=== PATIENT | male | born 1950 | race African-American/Black ===

== ENCOUNTER 2018-12-07 12:34 | Inpatient (IN) | payer MEDICARE, MEDICAID ==
[~2018-12-07] VITALS: Ht 182.9 cm; Wt 63.0 kg
[~2018-12-07 12:34] MED LIST: ARTIFICIAL TEAR15 ML BOTH EYES; ASPIR-LOW81 MG ORAL; ASPIRIN EC81 MG PO; ATORVASTATIN CA20 MG ORAL; CARVEDILOL6.25 MG ORAL; CARVEDILOL6.25 MG PO; Cyproheptadine Hcl ORAL; DILANTIN100 MG ORAL; DILANTIN100 MG PO; HYTRIN1 MG PO; IBUPROFEN600 MG ORAL; ISOSORBIDE MONO30 M1 PO; LIPITOR10 MG ORAL; METFORMIN HCL1000 M1 PO; NORCO 5-325 TA1 EACH ORAL; PHENYTOIN100 MG/4 M ORAL; SPIRONOLACTONE100 MG ORAL; SPIRONOLACTONE25 MG PO; UNOBMED
--- NOTE | 2018-12-07 12:38 | NUR ---
ED Nurse Note: Patient brought in by ambulance from homec/o left toe pain 05/13. patient c/o left foot toes being red and hurting. Alert awake x4 ambulatory with assistance at home, denies any fall/trauma. patient reports he was not able to take his blood pressure medication today
[2018-12-07 12:46] VITALS: BP 157/89
--- NOTE | 2018-12-07 13:45 | Emergency Room Report ---
History of Present Illness General Chief Complaint: Pain Source: Patient Present Illness HPI The patient has a history of peripheral vascular disease. Last month he underwent an arteriogram by vascular surgery. He is on Plavix. He states he has had ongoing severe pain in his left foot. He states the pain is chronic and he can no longer tolerate the symptoms. He denies any new symptoms. He denies recent illness. He denies fever or chills. He has no other complaints. Allergies: Coded Allergies: No Known Allergies (Unverified , 05/07/14) Patient History Past Medical History: see triage record, DM, HTN, seizures Social History: Denies: smoking, alcohol use, drug use Reviewed Nursing Documentation: PMH: Agreed; PSxH: Agreed Nursing Documentation-PMH Hx Cardiac Problems: Yes Hx Hypertension: Yes Hx Diabetes: Yes Hx Cancer: No Hx Gastrointestinal Problems: No Hx Neurological Problems: Yes Hx Transient Ischemic Attacks: No Hx Dementia: No Hx Alzheimer's Disease: No Hx Parkinson's Disease: No Hx Meningitis: No Hx Encephalitis: No Hx Seizures: Yes - 2012 Hx Epilepsy: No Hx Multiple Sclerosis: No Hx Cerebral Palsy: No Hx Amyotrophic Lat Sclerosis: No Hx Guillian-[place] Syndrome: No Hx Paralysis: No Hx Peripheral Neuropathy: No 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 Hx Head Trauma: No Hx Traumatic Brain Injury: No Hx Memory Loss: No Hx Concentration Difficulty: No Hx Speech Problem: No Hx Tremors: No Hx Vertigo: No Hx Dizziness: Yes Hx Syncope: No Hx Headaches: Yes Hx Aphasia: No Hx Dysphasia: No Hx Numbness: No Hx Weakness: Yes - BLE Hx Fatigue: Yes Hx Neurologic Surgery: No Hx Brain Shunt: No Review of Systems All Other Systems: negative except mentioned in HPI Physical Exam Vital Signs Date Time Temp Pulse Resp B/P (MAP) Pulse Ox O2 Delivery O2 Flow Rate FiO2 12/07/18 12:32 97.7 108 16 97 Room Air 12/07/18 12:46 157/89 Sp02 EP Interpretation: reviewed, normal General Appearance: no apparent distress, alert, GCS 15, non-toxic Head: normocephalic, atraumatic Eyes: bilateral eye normal inspection, bilateral eye PERRL ENT: hearing grossly normal, normal pharynx, no angioedema, normal voice Neck: full range of motion, supple/symm/no masses Respiratory: chest non-tender, lungs clear, normal breath sounds, no respiratory distress, no retraction, no accessory muscle use, speaking full sentences Cardiovascular #1: regular rate, rhythm, no edema Cardiovascular #2: 0 dorsalis pedis (L) Gastrointestinal: normal bowel sounds, non tender, soft, non-distended, no guarding, no rebound Rectal: deferred Musculoskeletal: back normal, tender - L. foot cold, skin erythematous, No swelling, 0/4 L. DP pulse. Neurologic: alert, oriented x3, responsive, motor strength/tone normal, sensory intact, speech normal Psychiatric: judgement/insight normal, memory normal, mood/affect normal, no suicidal/homicidal ideation Skin: warm/dry, well hydrated, other - See above in MSK Medical Decision Making Diagnostic Impression: Primary Impression: Arterial occlusion, lower extremity ER Course This patient has complete occlusion of the popliteal artery of the left lower should only. He had been seen in the vascular surgery clinic about 10 days ago and underwent an arteriogram. I'm unsure of the findings on this. Regardless, the patient is found have a complete occlusion of the popliteal artery here in the emergency department. The patient does not a pulse in the foot is cold. I feel that this patient needs further evaluation by vascular surgery. We do not have reliable vascular surgery here at [facility]. Patient is transferred to another hospital for higher level of care. Laboratory Tests Test 12/07/18 14:08 White Blood Count 12.2 K/UL (4.8-10.8) H Red Blood Count 5.18 M/UL (4.70-6.10) Hemoglobin 14.5 G/DL (14.2-18.0) Hematocrit 44.8 % (42.0-52.0) Mean Corpuscular Volume 87 FL (80-99) Mean Corpuscular Hemoglobin 28.1 PG (27.0-31.0) Mean Corpuscular Hemoglobin Concent 32.4 G/DL (32.0-36.0) Red Cell Distribution Width 12.3 % (11.6-14.8) Platelet Count 382 K/UL (150-450) Mean Platelet Volume 5.7 FL (6.5-10.1) L Neutrophils (%) (Auto) 80.8 % (45.0-75.0) H Lymphocytes (%) (Auto) 12.9 % (20.0-45.0) L Monocytes (%) (Auto) 5.6 % (1.0-10.0) Eosinophils (%) (Auto) 0.0 % (0.0-3.0) Basophils (%) (Auto) 0.7 % (0.0-2.0) Sodium Level 135 MMOL/L (136-145) L Potassium Level 4.4 MMOL/L (3.5-5.1) Chloride Level 98 MMOL/L (98-107) Carbon Dioxide Level 28 MMOL/L (21-32) Anion Gap 9 mmol/L (5-15) Blood Urea Nitrogen 17 mg/dL (7-18) Creatinine 0.9 MG/DL (0.55-1.30) Estimate Glomerular Filtration Rate > 60 mL/min (>60) Glucose Level 141 MG/DL (74-106) H Lactic Acid Level 1.20 mmol/L (0.4-2.0) Calcium Level 9.9 MG/DL (8.5-10.1) Total Bilirubin 0.4 MG/DL (0.2-1.0) Aspartate Amino Transferase (AST) 25 U/L (15-37) Alanine Aminotransferase (ALT) 29 U/L (12-78) Alkaline Phosphatase 220 U/L (46-116) H Total Creatine Kinase 179 U/L (26-308) Total Protein 7.8 G/DL (6.4-8.2) Albumin 3.4 G/DL (3.4-5.0) Globulin 4.4 g/dL Albumin/Globulin Ratio 0.8 (1.0-2.7) L Last Vital Signs Date Time Temp Pulse Resp B/P (MAP) Pulse Ox O2 Delivery O2 Flow Rate FiO2 12/07/18 12:46 97.7 109 17 157/89 100 Room Air Disposition: XFER SHT-TRM HOSP Condition: Serious Maura Azar DO December 07, 2018 13:45
--- NOTE | 2018-12-07 14:11 | NUR ---
ED Nurse Note: blood sent to lab
--- NOTE | 2018-12-07 14:12 | NUR ---
ED Nurse Note: ultraound at bedside notified Dr. Azar about the pain
[2018-12-07 14:26] LABS: BASOPHILS % (AUTO) 0.7 % (0.0-2.0); HEMATOCRIT 44.8 % (42.0-52.0); HEMOGLOBIN 14.5 G/DL (14.2-18.0); LYMPHOCYTES % (AUTO) 12.9 % (20.0-45.0); MEAN CORPUSCULAR VOLUME 87 FL (80-99); MONOCYTES % (AUTO) 5.6 % (1.0-10.0); NEUTROPHILS % (AUTO) 80.8 % (45.0-75.0); PLATELET COUNT 382 K/UL (150-450); RED BLOOD COUNT 5.18 M/UL (4.70-6.10); RED CELL DISTRIBUTION WIDTH 12.3 % (11.6-14.8); WHITE BLOOD COUNT 12.2 K/UL (4.8-10.8)
[2018-12-07 14:30] LABS: ANION GAP 9 mmol/L (5-15); BLOOD UREA NITROGEN 17 mg/dL (7-18); CALCIUM 9.9 MG/DL (8.5-10.1); CARBON DIOXIDE 28 MMOL/L (21-32); CHLORIDE 98 MMOL/L (98-107); CREATININE 0.9 MG/DL (0.55-1.30); POTASSIUM 4.4 MMOL/L (3.5-5.1); SODIUM 135 MMOL/L (136-145)
[2018-12-07 14:35] LABS: ALANINE AMINOTRANSFERASE 29 U/L (12-78); ALBUMIN 3.4 G/DL (3.4-5.0); ALBUMIN/GLOBULIN RATIO 0.8 (1.0-2.7); ALKALINE PHOSPHATASE 220 U/L (46-116); ASPARTATE AMINO TRANSFERASE 25 U/L (15-37); BILIRUBIN,TOTAL 0.4 MG/DL (0.2-1.0); CREATINE KINASE 179 U/L (26-308)
[2018-12-07] MEDS ORDERED: Morphine Sulfate 4mg/ml Inj (IV USE ONLY) IVP ONE (14:45)
--- NOTE | 2018-12-07 15:22 | NUR ---
ED Nurse Note: Dr. Azar notified about the result of arterial duplex, left foot cold to touch and no pedal pulse. Dr. Azar is aware.
--- NOTE | 2018-12-07 15:42 | Diagnostic Imaging Report ---
Indication: Reason For Exam: PAIN left leg Technique: Multiplanar smith scale and duplex doppler interrogation of the left lower extremity. Arteries performed in real-time. Comparison: None Findings: The left common femoral artery is demonstrated and appears patent with the triphasic waveform. The profunda femoris artery is also patent. The left superficial femoral artery is identified but occluded. The left popliteal artery is occluded. Portions of the trifurcation vessels namely anterior and posterior tibial arteries appear patent but demonstrate monophasic flow. IMPRESSION: Thrombosis/occlusion of the left mid to distal superficial femoral artery, popliteal artery. Portions of the trifurcation vessels are patent but demonstrate poor flow.
--- NOTE | 2018-12-07 16:09 | NUR ---
ED Nurse Note: called [facility]E and attempted to give report to ANTHONY MON, the nurse is busy at the moment, will callb ack in 15 mintues
[2018-12-07] MEDS ORDERED: Albuterol/Ipratropium 3ml neb HHN PRN (16:15)
[2018-12-07] MEDS ORDERED: Heparin 25,000u/D5W 500ml 500 ML IV SCH (16:15)
[2018-12-07] MEDS ORDERED: Nitroglycerin Subl 0.4mg tab SL PRN (16:15)
[2018-12-07] MEDS ORDERED: Enalaprilat 2.5mg/2ml Inj IV PRN (16:15)
[2018-12-07] MEDS ORDERED: Miralax 17gm pkt ORAL PRN (16:15)
[2018-12-07] MEDS ORDERED: dilTIAZem HCl 25mg/5ml Inj IV PRN (16:15)
[2018-12-07] MEDS ORDERED: Dextrose 50% 25ml Syringe IV PRN (16:15)
--- NOTE | 2018-12-07 16:40 | NUR ---
ED Nurse Note: patient is being transferred by [facility] report and care endorsed to ANTHONY MON.
--- NOTE | 2018-12-07 16:50 | NUR ---
NURSE NOTES: Received report from ELIESER Escobar. Belongings list was checked. Patient a/o x 4. No respiratory distress noted. c/o left foot pain as 8/10 and pain medicine was given at ER. Unit orientation was given. Bed in lowest position, call light within reach. Will continue to monitor.
[2018-12-07] MEDS ORDERED: Enalaprilat 1.25mg/ml Inj IV PRN (17:15)
[2018-12-07] MEDS: NovoLOG Insulin Flexpen SUBQ SCH ×2 (17:51→20:49)
[2018-12-07] MEDS ORDERED: Heparin 25,000u/D5W 500ml (VTE/AF) IV SCH (18:45)
[2018-12-07] MEDS: Morphine Sulfate 2mg/ml Inj(IV/IM USE ONLY) IVP PRN ×2 (18:59→23:13)
--- NOTE | 2018-12-07 19:08 | History & Physical ---
History and Physical History & Physicial Dictated for Int Med-Dr Dahl no. [id number]. Sukumar Rhodes MD December 07, 2018 19:08
--- NOTE | 2018-12-07 19:39 | NUR ---
HAND-OFF: Report given to ELIESER Lin. Patient is stable.
--- NOTE | 2018-12-07 19:45 | NUR ---
NURSE NOTES: Pt lying in bed w/bed in lowest position and call light within reach. Pt A&Ox4, VSS, and in no apparent distress at this time. IV site intact/asymptomatic w/Heparin drip infusing and skin intact. Will continue to monitor.
--- NOTE | 2018-12-07 19:57 | NUR ---
CASE MANAGEMENT: REVIEW 68Y/M BIBA FROM HOME CC: LEFT FOOT PAIN S/P ARTERIOGRAM SI: ARTERIAL OCCLUSION, LOWER EXTREMITY T 97.7 HR 109 RR 17 BP 157/89 SAT 97% ROOM AIR WBC 12.2 NA 135 IS: MORPHINE IV X1 PATIENT IS ADMITTED TO MED/SURG UNIT 12/07/2018 DCP: PATIENT IS FROM HOME
[2018-12-07 20:00] VITALS: BP 142/82
[2018-12-07] MEDS: Carvedilol 6.25mg Tab ORAL SCH (20:48)
[2018-12-07] MEDS ORDERED: Phenytoin 100mg cap ORAL SCH (21:00)
[2018-12-07] MEDS ORDERED: Atorvastatin 20mg tab ORAL SCH (21:00)
[2018-12-08] VITALS: BP 121/89
--- NOTE | 2018-12-08 01:15 | History and Physical Report ---
DATE OF ADMISSION: 12/07/2018 CHIEF COMPLAINT: The patient is a 68-year-old male, who presents with a chief complaint of left foot and left barbosa pain. HISTORY OF PRESENT ILLNESS: The patient has a history of peripheral vascular disease. The patient is status post left femoral popliteal bypass surgery in November of 2018. The patient states that he began to experience extreme pain in the left foot and left barbosa approximately 2 or 3 days ago. The patient presented to [place] emergency room. The patient was admitted for left foot pain to rule out ischemia of the left foot and barbosa. REVIEW OF SYSTEMS: CONSTITUTIONAL: The patient denies weight loss or weight gain. The patient denies fevers or chills. HEENT: The patient denies ear or throat pain. The patient denies headache. CARDIOVASCULAR: The patient denies palpitations or chest pain. CHEST: The patient denies wheeze or shortness of breath. ABDOMEN: The patient denies nausea, vomiting, diarrhea, or constipation. GENITOURINARY: The patient denies dysuria or increased frequency of urination. NEUROMUSCULAR: The patient complains of left leg pain as above. The patient denies generalized weakness. The patient does have a history of seizure disorder. PAST MEDICAL HISTORY: Significant for, 1. Type 2 diabetes. 2. Hypertension. 3. Seizure disorder. 4. Coronary artery disease. PAST SURGICAL HISTORY: Significant for, 1. Left femoral popliteal bypass in November of 2018. 2. Right inguinal hernia repair. CURRENT MEDICATIONS: 1. Aspirin 81 mg one tablet p.o. daily. 2. Atorvastatin 20 mg p.o. at bedtime. 3. Carvedilol 6.25 mg p.o. twice daily. 4. [place] 5/325 mg one tablet p.o. q.6 h. p.r.n. 5. Isosorbide mononitrate 30 mg p.o. daily. 6. Metformin 1000 mg p.o. twice daily. 7. Dilantin 300 mg p.o. at bedtime. 8. Dilantin 200 mg p.o. twice daily. 9. Aldactone 25 mg p.o. daily. 10. Terazosin 1 mg p.o. daily. ALLERGIES: No known drug allergies. SOCIAL HISTORY: The patient lives alone. The patient admits to tobacco use of 1/2 pack per day. The patient denies alcohol use. PHYSICAL EXAMINATION: VITAL SIGNS: Temperature 97.7, respirations 16, pulse 108, and blood pressure 157/89. GENERAL: The patient is a well-developed and well-nourished thin-appearing male, who is in moderate pain. HEENT: Eyes, pupils are equal and responsive to light and accommodation. Extraocular movements are intact. NECK: Supple without lymphadenopathy. CHEST: Lungs are clear to auscultation bilaterally without wheezes or rales. CARDIOVASCULAR: Regular rhythm and rate. S1 and S2 are normal without murmurs, rubs, or gallops. ABDOMEN: Soft, nontender, nondistended. Positive bowel sounds. No evidence of hepatosplenomegaly. Currently, no rebound or guarding noted. EXTREMITIES: Negative for clubbing, cyanosis, or edema. RECTAL/GENITAL: Refused. NEUROLOGIC: Cranial nerves II through XII are grossly intact without focal deficits. Motor strength is 5/5 bilaterally. Deep tendon reflexes are 2+ plantar. LABORATORY STUDIES: An arterial duplex Doppler of the left leg reveals thrombus/occlusion of the left mid to left distal superficial femoral artery and popliteal artery. LABORATORY STUDIES: WBC 12.2, hemoglobin 14.5, hematocrit 44.8, and platelets 382,000. Sodium 135, potassium 4.4, chloride 98, CO2 is 28, BUN 17, creatinine 0.9, and glucose 141. ASSESSMENT: This is a 68-year-old male. 1. Acute thrombus of the left superficial femoral artery. 2. Left foot pain. 3. Diabetes type 2. 4. Hypertension. 5. Seizure disorder. 6. Coronary artery disease. 7. Peripheral vascular disease. TREATMENT: 1. Thrombosis of the left superficial femoral artery. The patient has been started on heparin drip. A Vascular Surgery consultation is pending. We will follow recommendation of Vascular Surgery. 2. Left foot pain. This secondary to ischemia of the left foot. 3. Diabetes type 2. The patient has been placed on NovoLog sliding scale. 4. Hypertension. Continue Coreg as above. 5. Seizure disorder. Continue Dilantin as above. 6. Coronary artery disease. Continue aspirin as above. 7. Peripheral vascular disease. Sukumar Rhodes M.D. DR: TONJA JOB#: [id number] CC:
--- NOTE | 2018-12-08 01:30 | NUR ---
NURSE NOTES: Notified [employer] pharmacist of PTT of 38; pharmacist will input order for bolus and rate increase. Will continue to monitor.
[2018-12-08] MEDS ORDERED: Heparin 5000 units/ml inj IV ONE (01:45)
[2018-12-08] MEDS: Heparin 25,000u/D5W 500ml (VTE/AF) IV SCH ×2 (01:57→14:27)
[2018-12-08] MEDS: Morphine Sulfate 2mg/ml Inj(IV/IM USE ONLY) IVP PRN ×4 (03:20→17:38)
[2018-12-08 04:00] VITALS: BP 147/78
[2018-12-08] MEDS: NovoLOG Insulin Flexpen SUBQ SCH ×3 (06:15→17:34)
--- NOTE | 2018-12-08 07:30 | NUR ---
HAND-OFF: Report given to ELIESER Velez.
--- NOTE | 2018-12-08 07:42 | NUR ---
NURSE NOTES: During shift change patient alert awake with out no distress seating on bed and eating breakfast, on Heparin drip 22u/kg no s/s of bleeding, bed on low position locked, call light with in reach, table with in reach will continue to monitor.
[2018-12-08 08:25] VITALS: BP 146/92
[2018-12-08] MEDS: Carvedilol 6.25mg Tab ORAL SCH (08:41)
[2018-12-08] MEDS ORDERED: Aspirin EC 81mg tab ORAL SCH (09:00)
[2018-12-08] MEDS ORDERED: Aspirin Baby 81mg ORAL SCH (09:00)
[2018-12-08 09:17] LABS: BASOPHILS % (AUTO) 0.5 % (0.0-2.0); EOSINOPHILS % (AUTO) 0.1 % (0.0-3.0); HEMATOCRIT 38.7 % (42.0-52.0); HEMOGLOBIN 12.6 G/DL (14.2-18.0); LYMPHOCYTES % (AUTO) 18.6 % (20.0-45.0); MEAN CORPUSCULAR VOLUME 86 FL (80-99); MONOCYTES % (AUTO) 7.7 % (1.0-10.0); NEUTROPHILS % (AUTO) 73.1 % (45.0-75.0); PLATELET COUNT 370 K/UL (150-450); RED CELL DISTRIBUTION WIDTH 11.7 % (11.6-14.8); WHITE BLOOD COUNT 8.5 K/UL (4.8-10.8)
--- NOTE | 2018-12-08 09:30 | NUR ---
NURSE NOTES: on nursing assessment the right leg with decreased circulation comparing to the left leg and cooler than the left leg as well. noted a puncture site on R. ankle patient stated that is where he has the surgery but he doesn't know what kind of surgery, procedure done as an out patient reported burning pain will continue to monitor.
[2018-12-08 09:38] LABS: CHOLESTEROL 179 MG/DL (< 200); HDL CHOLESTEROL 59 MG/DL (40-60); TRIGLYCERIDES 85 MG/DL (30-150)
[2018-12-08 09:52] LABS: INR 1.1 (0.9-1.1)
--- NOTE | 2018-12-08 09:58 | Cardiology Progress Note ---
Assessment/Plan Assessment/Plan need limb salvage procedure at discretion of vascular possibly urgently will check ekg and echo and a cxr will nto tight control of bop unitl after flow is established [id number] Objective Last 24 Hour Vital Signs Date Time Temp Pulse Resp B/P (MAP) Pulse Ox O2 Delivery O2 Flow Rate FiO2 12/08/18 09:20 97.9 12/08/18 08:41 62 146/92 12/08/18 08:25 97.9 62 20 146/92 (110) 95 12/08/18 04:00 99.0 107 18 147/78 (101) 95 12/08/18 00:00 99.2 105 18 121/89 (100) 98 12/07/18 21:00 Room Air 12/07/18 20:48 103 142/82 12/07/18 20:00 99.4 103 18 142/82 (102) 95 12/07/18 16:55 Room Air 12/07/18 16:39 97.7 72 17 139/72 100 Room Air 12/07/18 15:20 97.7 12/07/18 12:46 97.7 109 17 157/89 100 Room Air 12/07/18 12:32 97.7 108 16 97 Room Air Intake and Output 12/07/18 12/08/18 19:00 07:00 Intake Total 250 ml 274.898 ml Output Total 675 ml Balance 250 ml -400.102 ml Intake Oral 250 ml IV Total 274.898 ml Output Urine Total 675 ml # Voids 1 1 Laboratory Tests Test 12/07/18 14:08 12/07/18 18:20 12/08/18 00:53 12/08/18 08:00 White Blood Count 12.2 K/UL (4.8-10.8) H 8.5 K/UL (4.8-10.8) Red Blood Count 5.18 M/UL (4.70-6.10) 4.50 M/UL (4.70-6.10) L Hemoglobin 14.5 G/DL (14.2-18.0) 12.6 G/DL (14.2-18.0) L Hematocrit 44.8 % (42.0-52.0) 38.7 % (42.0-52.0) L Mean Corpuscular Volume 87 FL (80-99) 86 FL (80-99) Mean Corpuscular Hemoglobin 28.1 PG (27.0-31.0) 28.1 PG (27.0-31.0) Mean Corpuscular Hemoglobin Concent 32.4 G/DL (32.0-36.0) 32.7 G/DL (32.0-36.0) Red Cell Distribution Width 12.3 % (11.6-14.8) 11.7 % (11.6-14.8) Platelet Count 382 K/UL (150-450) 370 K/UL (150-450) Mean Platelet Volume 5.7 FL (6.5-10.1) L 5.8 FL (6.5-10.1) L Neutrophils (%) (Auto) 80.8 % (45.0-75.0) H 73.1 % (45.0-75.0) Lymphocytes (%) (Auto) 12.9 % (20.0-45.0) L 18.6 % (20.0-45.0) L Monocytes (%) (Auto) 5.6 % (1.0-10.0) 7.7 % (1.0-10.0) Eosinophils (%) (Auto) 0.0 % (0.0-3.0) 0.1 % (0.0-3.0) Basophils (%) (Auto) 0.7 % (0.0-2.0) 0.5 % (0.0-2.0) Sodium Level 135 MMOL/L (136-145) L Potassium Level 4.4 MMOL/L (3.5-5.1) Chloride Level 98 MMOL/L (98-107) Carbon Dioxide Level 28 MMOL/L (21-32) Anion Gap 9 mmol/L (5-15) Blood Urea Nitrogen 17 mg/dL (7-18) Creatinine 0.9 MG/DL (0.55-1.30) Estimat Glomerular Filtration Rate > 60 mL/min (>60) Glucose Level 141 MG/DL (74-106) H Lactic Acid Level 1.20 mmol/L (0.4-2.0) Calcium Level 9.9 MG/DL (8.5-10.1) Total Bilirubin 0.4 MG/DL (0.2-1.0) Aspartate Amino Transf (AST/SGOT) 25 U/L (15-37) Alanine Aminotransferase (ALT/SGPT) 29 U/L (12-78) Alkaline Phosphatase 220 U/L (46-116) H Total Creatine Kinase 179 U/L (26-308) Troponin I 0.000 ng/mL (0.000-0.056) Total Protein 7.8 G/DL (6.4-8.2) Albumin 3.4 G/DL (3.4-5.0) Globulin 4.4 g/dL Albumin/Globulin Ratio 0.8 (1.0-2.7) L Activated Partial Thromboplast Time 28 SEC (23-33) 38 SEC (23-33) H 81 SEC (23-33) H Prothrombin Time 11.1 SEC (9.30-11.50) Prothromb Time International Ratio 1.1 (0.9-1.1) C-Reactive Protein, Quantitative 7.7 mg/dL (0.00-0.90) H Triglycerides Level 85 MG/DL (30-150) Cholesterol Level 179 MG/DL (< 200) LDL Cholesterol 106 mg/dL (<100) H HDL Cholesterol 59 MG/DL (40-60) Cholesterol/HDL Ratio 3.0 (3.3-4.4) L Thyroid Stimulating Hormone (TSH) 2.824 uiU/mL (0.358-3.740) Jesus Wynn MD December 08, 2018 09:58
--- NOTE | 2018-12-08 10:55 | Cardiology Report ---
APPROVED REPORT EXAM: Two-dimensional and M-mode echocardiogram with Doppler and color Doppler. INDICATION LV FUNCTION M-Mode DIMENSIONS IVSd0.7 (0.7-1.1cm)Left Atrium (MM)2.1 (1.6-4.0cm) LVDd3.8 (3.5-5.6cm)Aortic Root3.7 (2.0-3.7cm) PWd0.7 (0.7-1.1cm)Aortic Cusp Exc.1.8 (1.5-2.0cm) IVSs1.0 cm LVDs2.3 (2.5-4.0cm) PWs1.3 cm Normal left ventricular chamber size, systolic function and wall motion. Left ventricular ejection fraction estimated to be 55-60%. Mild left ventricular hypertrophy by 2-D. False tendon in distal LV No evidence of pericardial effusion. All other cardiac chamber sizes are within normal limits. Aortic valve calcification with normal cusp excursion . Mildly thickened mitral valve leaflets with normal excursion. Mild mitral annulus and aortic root calcification. Pulmonic valve not well visualized. IVC at normal size with physiologic collapse . A color flow and spectral Doppler study was performed and revealed: No aortic insufficiency . Mitral diastolic velocities suggest reduced left ventricular relaxation c/w mild LV diastolic dysfunction (Grade I ) Trace tricuspid regurgitation. Trace tricuspid regurgitation. Tricuspid systolic velocities suggests peak right ventricular systolic pressure of 12 mmHg. Trace pulmonic regurgitation.
[2018-12-08 12:00] VITALS: BP 138/78
--- NOTE | 2018-12-08 12:31 | Consultation ---
History of Present Illness General Date patient seen: December 08, 2018 Chief Complaint: Pain Present Illness HPI 68 year old male with history of peripheral vascular disease on Plavix, DM, HTN, seizures presented to ER with CC of ongoing severe pain in his left foot. He states the pain is chronic and he can no longer tolerate the symptoms. He denies any new symptoms. He denies recent illness. He denies fever or chills. He has no other complaints. the US of left femoral artery showed thrombosis/ occlusion of the left mid to distal superficial femoral artery. The vascular surgeon was informed by ER physician and pt was admitted to med/surg floor. Allergies: Coded Allergies: No Known Allergies (Unverified , 05/07/14) Medication History Scheduled Aspirin Ec* (Aspirin Ec*), 81 MG PO DAILY, (Reported) Aspirin* (Aspir-Low*), 81 MG ORAL BEDTIME, (Reported) Atorvastatin Calcium* (Lipitor*), 20 MG ORAL BEDTIME Carvedilol* (Carvedilol*), 6.25 MG PO BID, (Reported) Carvedilol* (Carvedilol*), 6.25 MG ORAL BID, (Reported) Dextran 70/Hypromellose (Artificial Tears Eye Drops*), 1 DROP BOTH EYES QID Isosorbide Mononitrate (Isosorbide Mononitrate Er), 30 MG PO DAILY, (Reported) Metformin Hcl* (Metformin Hcl*), 1,000 MG PO BID, (Reported) Phenytoin Sodium Extended* (Dilantin*), 300 MG PO HS, (Reported) Phenytoin Sodium Extended* (Dilantin*), 200 MG ORAL TWICE A DAY Spironolactone* (Aldactone*), 25 MG PO DAILY, (Reported) Spironolactone* (Spironolactone*), 25 MG ORAL DAILY, (Reported) Terazosin HCl (Terazosin HCl), 5 MG PO BEDTIME, (Reported) [Cyproheptadine Hcl], 4 MG ORAL THREE TIMES A DAY Scheduled PRN Hydrocodone Bit/Acetaminophen 5-325* (Mclean 5-325*), 1 TAB ORAL Q6H PRN for For Pain Ibuprofen* (Motrin*), 600 MG ORAL Q8H PRN for For Pain Patient History Healthcare decision maker Resuscitation status Full Code Advanced Directive on File Past Medical/Surgical History Past Medical/Surgical History: (1) History of CVA (cerebrovascular accident) (2) PVD (peripheral vascular disease) (3) Cardiomyopathy (4) CAD (coronary artery disease) (5) Diabetes mellitus (6) Epileptic seizure, generalized Review of Systems All Other Systems: negative except mentioned in HPI Physical Exam General Appearance: WD/WN, no apparent distress Lines, tubes and drains: peripheral HEENT: normocephalic, atraumatic Neck: non-tender, normal alignment Respiratory/Chest: chest wall non-tender, lungs clear Breasts: no masses Cardiovascular/Chest: normal peripheral pulses, normal rate Abdomen: normal bowel sounds, non tender Genitourinary/Rectal: normal genital exam Extremities: normal range of motion, non-tender, other - very tender on touch left foot. cynosis of Skin Exam: normal pigmentation, other - cyanosis of the top of left big toe Neurologic: director biostatistics II-XII grossly normal Last 24 Hour Vital Signs Date Time Temp Pulse Resp B/P (MAP) Pulse Ox O2 Delivery O2 Flow Rate FiO2 12/08/18 10:24 Room Air 12/08/18 09:20 97.9 12/08/18 08:41 62 146/92 12/08/18 08:25 97.9 62 20 146/92 (110) 95 12/08/18 04:00 99.0 107 18 147/78 (101) 95 12/08/18 00:00 99.2 105 18 121/89 (100) 98 12/07/18 21:00 Room Air 12/07/18 20:48 103 142/82 12/07/18 20:00 99.4 103 18 142/82 (102) 95 12/07/18 16:55 Room Air 12/07/18 16:39 97.7 72 17 139/72 100 Room Air 12/07/18 15:20 97.7 12/07/18 12:46 97.7 109 17 157/89 100 Room Air 12/07/18 12:32 97.7 108 16 97 Room Air Intake and Output 12/07/18 12/08/18 19:00 07:00 Intake Total 250 ml 274.898 ml Output Total 675 ml Balance 250 ml -400.102 ml Intake Oral 250 ml IV Total 274.898 ml Output Urine Total 675 ml # Voids 1 1 Laboratory Tests Test 12/07/18 14:08 12/07/18 18:20 12/08/18 00:53 12/08/18 08:00 White Blood Count 12.2 K/UL (4.8-10.8) H 8.5 K/UL (4.8-10.8) Red Blood Count 5.18 M/UL (4.70-6.10) 4.50 M/UL (4.70-6.10) L Hemoglobin 14.5 G/DL (14.2-18.0) 12.6 G/DL (14.2-18.0) L Hematocrit 44.8 % (42.0-52.0) 38.7 % (42.0-52.0) L Mean Corpuscular Volume 87 FL (80-99) 86 FL (80-99) Mean Corpuscular Hemoglobin 28.1 PG (27.0-31.0) 28.1 PG (27.0-31.0) Mean Corpuscular Hemoglobin Concent 32.4 G/DL (32.0-36.0) 32.7 G/DL (32.0-36.0) Red Cell Distribution Width 12.3 % (11.6-14.8) 11.7 % (11.6-14.8) Platelet Count 382 K/UL (150-450) 370 K/UL (150-450) Mean Platelet Volume 5.7 FL (6.5-10.1) L 5.8 FL (6.5-10.1) L Neutrophils (%) (Auto) 80.8 % (45.0-75.0) H 73.1 % (45.0-75.0) Lymphocytes (%) (Auto) 12.9 % (20.0-45.0) L 18.6 % (20.0-45.0) L Monocytes (%) (Auto) 5.6 % (1.0-10.0) 7.7 % (1.0-10.0) Eosinophils (%) (Auto) 0.0 % (0.0-3.0) 0.1 % (0.0-3.0) Basophils (%) (Auto) 0.7 % (0.0-2.0) 0.5 % (0.0-2.0) Sodium Level 135 MMOL/L (136-145) L Potassium Level 4.4 MMOL/L (3.5-5.1) Chloride Level 98 MMOL/L (98-107) Carbon Dioxide Level 28 MMOL/L (21-32) Anion Gap 9 mmol/L (5-15) Blood Urea Nitrogen 17 mg/dL (7-18) Creatinine 0.9 MG/DL (0.55-1.30) Estimat Glomerular Filtration Rate > 60 mL/min (>60) Glucose Level 141 MG/DL (74-106) H Lactic Acid Level 1.20 mmol/L (0.4-2.0) Calcium Level 9.9 MG/DL (8.5-10.1) Total Bilirubin 0.4 MG/DL (0.2-1.0) Aspartate Amino Transf (AST/SGOT) 25 U/L (15-37) Alanine Aminotransferase (ALT/SGPT) 29 U/L (12-78) Alkaline Phosphatase 220 U/L (46-116) H Total Creatine Kinase 179 U/L (26-308) Troponin I 0.000 ng/mL (0.000-0.056) Total Protein 7.8 G/DL (6.4-8.2) Albumin 3.4 G/DL (3.4-5.0) Globulin 4.4 g/dL Albumin/Globulin Ratio 0.8 (1.0-2.7) L Activated Partial Thromboplast Time 28 SEC (23-33) 38 SEC (23-33) H 81 SEC (23-33) H Prothrombin Time 11.1 SEC (9.30-11.50) Prothromb Time International Ratio 1.1 (0.9-1.1) C-Reactive Protein, Quantitative 7.7 mg/dL (0.00-0.90) H Triglycerides Level 85 MG/DL (30-150) Cholesterol Level 179 MG/DL (< 200) LDL Cholesterol 106 mg/dL (<100) H HDL Cholesterol 59 MG/DL (40-60) Cholesterol/HDL Ratio 3.0 (3.3-4.4) L Thyroid Stimulating Hormone (TSH) 2.824 uiU/mL (0.358-3.740) Height (Feet): 6 Height (Inches): 1.00 Weight (Pounds): 139 Medications Current Medications Medications (Trade) Dose Ordered Sig/Mell Route PRN Reason Start Time Stop Time Status Last Admin Dose Admin Acetaminophen (Tylenol) 650 mg Q4H PRN ORAL FEVER 12/07/18 16:15 01/06/19 16:14 Albuterol/ Ipratropium (Albuterol/ Ipratropium) 3 ml Q4H PRN HHN Shortness of Breath 12/07/18 16:15 12/12/18 16:14 Aspirin (ASA) 162 mg DAILY ORAL 12/08/18 09:00 01/07/19 08:59 12/08/18 08:40 Atorvastatin Calcium (Lipitor) 20 mg BEDTIME ORAL 12/07/18 21:00 01/06/19 20:59 12/07/18 20:46 Carvedilol (Coreg) 6.25 mg Q12HR ORAL 12/07/18 21:00 01/06/19 20:59 12/08/18 08:41 Dextrose (Dextrose 50%) 25 ml Q30M PRN IV Hypoglycemia 12/07/18 16:15 01/06/19 16:09 Dextrose (Dextrose 50%) 50 ml Q30M PRN IV hypoglycemia 12/07/18 16:15 01/06/19 16:14 Enalaprilat (Vasotec) 2.5 mg Q6H PRN IV sbp more than 160 12/07/18 17:15 01/06/19 16:14 Heparin Sodium/ Dextrose 500 ml @ 27.742 mls/ hr ADJUST PER PROTOCOL IV 12/08/18 01:45 01/06/19 18:44 12/08/18 01:57 Insulin Aspart (NovoLOG) BEFORE MEALS AND HS SUBQ 12/07/18 16:30 01/06/19 16:29 12/08/18 11:49 Morphine Sulfate (Morphine Sulfate) 2 mg Q4H PRN IVP severe Pain (Pain Scale 7-10) 12/07/18 16:15 12/14/18 16:14 12/08/18 08:43 Nitroglycerin (Ntg) 0.4 mg Q5M PRN SL Prn Chest Pain 12/07/18 16:15 01/06/19 16:14 Ondansetron HCl (Zofran) 4 mg Q6H PRN IVP Nausea & Vomiting 12/07/18 16:15 01/06/19 16:14 Pantoprazole (Protonix) 40 mg DAILY ORAL 12/08/18 09:00 01/07/19 08:59 12/08/18 08:41 Phenytoin (Dilantin) 300 mg BEDTIME ORAL 12/07/18 21:00 01/06/19 20:59 12/07/18 20:45 Polyethylene Glycol (Miralax) 17 gm DAILYPRN PRN ORAL Constipation 12/07/18 16:15 01/06/19 16:14 Temazepam (Restoril) 15 mg HSPRN PRN ORAL Insomnia 12/07/18 16:15 12/14/18 16:14 12/08/18 02:03 Terazosin HCl (Hytrin) 5 mg BEDTIME ORAL 12/07/18 21:00 01/06/19 20:59 12/07/18 20:46 Assessment/Plan Problem List: (1) Arterial occlusion, lower extremity ICD Codes: I70.209 - Unspecified atherosclerosis of [place] arteries of extremities, unspecified extremity SNOMED: 424505051 (2) CAD (coronary artery disease) ICD Codes: I25.10 - Atherosclerotic heart disease of [place] coronary artery without angina pectoris SNOMED: 79218066 (3) Diabetes mellitus ICD Codes: E11.9 - Type 2 diabetes mellitus without complications SNOMED: 75093540 (4) Left foot pain ICD Codes: M79.672 - Pain in left foot SNOMED: 81522914 (5) Epileptic seizure, generalized ICD Codes: G40.909 - Epilepsy, unspecified, not intractable, without status epilepticus SNOMED: 26717995 (6) History of CVA (cerebrovascular accident) ICD Codes: Z86.73 - Personal history of transient ischemic attack (TIA), and cerebral infarction without residual deficits SNOMED: 653037400 (7) PVD (peripheral vascular disease) ICD Codes: I73.9 - Peripheral vascular disease, unspecified SNOMED: 803064958 Assessment/Plan: vascular surgery continue heparin drip sliding scale increase pain meds until pt is comfortable monitor bp cardiac clearance for potential surgery Herson Lindsay MD December 08, 2018 12:31
--- NOTE | 2018-12-08 12:55 | NUR ---
CASE MANAGEMENT:REVIEW 12/08/18 SI: SEVERE LT FOOT PAIN ARTERIAL OCCLUSION. PVD 97.9 62 20 146/92 95% ON RA CRP+7.7 IS: HEPARIN GTT ASA PO QD COREG PO Q12 IV MORPHINE Q4HRS PRN : MED/SURG STATUS 3 [facility]
--- NOTE | 2018-12-08 13:24 | NUR ---
NURSE NOTES: Patient reassessed and RN noted discoloration on the foot, prominently noted on the thumb. patient holding leg up RN educated patient holding leg up is occluding the circulation more, pain medication given to alleviate the pain and to help patient rest the leg on bed. noted decreased circulation and cool to touch than the morning. AM assessment patient leg was covered now no cover leg was held up unknown time patient stated he has it up for a while. will continue to monitor. Addendum: 12/08/18 at 1757 by DOREEN HEAD RN NURSE NOTES: Patient reassessed and RN noted discoloration on the foot, prominently noted on the great toe. patient holding leg up RN educated patient holding leg up is occluding the circulation more, pain medication given to alleviate the pain and to help patient rest the leg on bed. noted decreased circulation and cool to touch than the morning. AM assessment patient leg was covered now no cover leg was held up unknown time patient stated he has it up for a while. will continue to monitor.
--- NOTE | 2018-12-08 13:42 | NUR ---
*-* INSURANCE *-* CLINICALS AND REVIEWS HAVE BEEN FAXED TO: RUBÉN ESTEVES [phone] AUTH# [id number] FAX CLINICALS TO [phone]
--- NOTE | 2018-12-08 14:03 | NUR ---
NURSE NOTES: MD notified of condition change will follow up for new order, currently patient asleep will reassess.
--- NOTE | 2018-12-08 14:30 | NUR ---
TRANSFER UPDATE CALLED [facility] AND SPOKE WITH MARISOL IN "ONE CALL" T;[phone] F: [phone] PER MARISOL SHE WILL CHECK INSURANCE AND CONTACT DR VILA REGARDING ACCEPTANCE ONCE PATIENT HAS BEEN ACCEPTED AND THEY HAVE A BED THEY WILL CALL BACK REGARDING TRANSFER
--- NOTE | 2018-12-08 15:38 | NUR ---
REF# [id number]
[2018-12-08 15:52] VITALS: BP 137/84
--- NOTE | 2018-12-08 16:32 | NUR ---
TRANSFER UPDATE PATIENT HAS BEEN REFERRED TO [facility] FOR ANGIOGRAPHY [facility] IS REQUESTING THE NAME OF THE ACCEPTING PHYSICIAN SINCE DR VILA WILL NOT ACCEPT, HE IS ONLY THE CONSULTATNT PER DR KIM, DR BUTLER WILL BE THE ACCEPTING PHYSICIAN PROVIDED [facility] [employer] MARKETING COORDINATOR, FRITZ WITH ACCEPTING PHYSICIANS NAME SO SHE CAN CREATE A CASE AND GIVE AUTHORIZATION FOR TRANSFER ~ WAITING FOR AUTHORIZATION NUMBER FOR TRANSFER AND AMBULANCE SPOKE WITH MARISOL AT [facility] WHO IS WAITING FOR DR ARROYO TO CALL AND ACCEPT PATIENT [facility] ONE CALL MARISOL T: [phone] F: [phone] [facility] [employer] COORDINATOR FRITZ T: [phone] REF # [id number] Addendum: 12/08/18 at 1652 by KIMBERLEY WRIGHT LVN LVN RECEIVED CALL FROM GUERDA AT " ONE CALL" PATIENT HAS BEEN ACCEPTED [facility] ROOM 902A T: [phone] FOR NURSE TO NURSE REPORT BEDSIDE RN TO CONTACT DR KIM FOR TRANSFER ORDERS AND ARRANGE AMBULANCE TRANSFER
[2018-12-08] MEDS ORDERED: HEPARIN-D525000 UNI1 IV (17:29)
--- NOTE | 2018-12-08 17:39 | NUR ---
BS reading 445 Dr. romano notified 12unit insulin given pt. Asymptomatic.
--- NOTE | 2018-12-08 17:39 | Internal Med Progress Note ---
Subjective Date of Service: December 08, 2018 Physician Name Sukumar Rhodes Attending Physician Luis Dahl MD Current Medications Medications (Trade) Dose Ordered Sig/Mell Route PRN Reason Start Time Stop Time Status Last Admin Dose Admin Acetaminophen (Tylenol) 650 mg Q4H PRN ORAL FEVER 12/07/18 16:15 01/06/19 16:14 Albuterol/ Ipratropium (Albuterol/ Ipratropium) 3 ml Q4H PRN HHN Shortness of Breath 12/07/18 16:15 12/12/18 16:14 Aspirin (ASA) 162 mg DAILY ORAL 12/08/18 09:00 01/07/19 08:59 12/08/18 08:40 Atorvastatin Calcium (Lipitor) 20 mg BEDTIME ORAL 12/07/18 21:00 01/06/19 20:59 12/07/18 20:46 Carvedilol (Coreg) 6.25 mg Q12HR ORAL 12/07/18 21:00 01/06/19 20:59 12/08/18 08:41 Dextrose (Dextrose 50%) 25 ml Q30M PRN IV Hypoglycemia 12/07/18 16:15 01/06/19 16:09 Dextrose (Dextrose 50%) 50 ml Q30M PRN IV hypoglycemia 12/07/18 16:15 01/06/19 16:14 Enalaprilat (Vasotec) 2.5 mg Q6H PRN IV sbp more than 160 12/07/18 17:15 01/06/19 16:14 Heparin Sodium/ Dextrose 500 ml @ 27.742 mls/ hr ADJUST PER PROTOCOL IV 12/08/18 01:45 01/06/19 18:44 12/08/18 14:27 Insulin Aspart (NovoLOG) BEFORE MEALS AND HS SUBQ 12/07/18 16:30 01/06/19 16:29 12/08/18 17:34 Morphine Sulfate (Morphine Sulfate) 2 mg Q4H PRN IVP severe Pain (Pain Scale 7-10) 12/07/18 16:15 12/14/18 16:14 12/08/18 13:16 Nitroglycerin (Ntg) 0.4 mg Q5M PRN SL Prn Chest Pain 12/07/18 16:15 01/06/19 16:14 Ondansetron HCl (Zofran) 4 mg Q6H PRN IVP Nausea & Vomiting 12/07/18 16:15 01/06/19 16:14 Pantoprazole (Protonix) 40 mg DAILY ORAL 12/08/18 09:00 01/07/19 08:59 12/08/18 08:41 Phenytoin (Dilantin) 300 mg BEDTIME ORAL 12/07/18 21:00 01/06/19 20:59 12/07/18 20:45 Polyethylene Glycol (Miralax) 17 gm DAILYPRN PRN ORAL Constipation 12/07/18 16:15 01/06/19 16:14 Temazepam (Restoril) 15 mg HSPRN PRN ORAL Insomnia 12/07/18 16:15 12/14/18 16:14 12/08/18 02:03 Terazosin HCl (Hytrin) 5 mg BEDTIME ORAL 12/07/18 21:00 01/06/19 20:59 12/07/18 20:46 Allergies: Coded Allergies: No Known Allergies (Unverified , 05/07/14) ROS Limited/Unobtainable: No Constitutional: Reports: no symptoms HEENT: Reports: no symptoms Cardiovascular: Reports: no symptoms Respiratory: Reports: no symptoms Gastrointestinal/Abdominal: Reports: no symptoms Genitourinary: Reports: no symptoms Neurologic/Psychiatric: Reports: no symptoms Subjective 68 YO M admitted with left foot pain. Now acute thrombosis left superior femoral artery. Cover for Int Ney dahl Objective Last Vital Signs Date Time Temp Pulse Resp B/P (MAP) Pulse Ox O2 Delivery O2 Flow Rate FiO2 12/08/18 15:52 98.1 64 18 137/84 (101) 100 12/08/18 10:24 Room Air Laboratory Tests Test 12/07/18 18:20 12/08/18 00:53 12/08/18 08:00 12/08/18 16:03 Activated Partial Thromboplast Time 28 SEC (23-33) 38 SEC (23-33) H 81 SEC (23-33) H White Blood Count 8.5 K/UL (4.8-10.8) Red Blood Count 4.50 M/UL (4.70-6.10) L Hemoglobin 12.6 G/DL (14.2-18.0) L Hematocrit 38.7 % (42.0-52.0) L Mean Corpuscular Volume 86 FL (80-99) Mean Corpuscular Hemoglobin 28.1 PG (27.0-31.0) Mean Corpuscular Hemoglobin Concent 32.7 G/DL (32.0-36.0) Red Cell Distribution Width 11.7 % (11.6-14.8) Platelet Count 370 K/UL (150-450) Mean Platelet Volume 5.8 FL (6.5-10.1) L Neutrophils (%) (Auto) 73.1 % (45.0-75.0) Lymphocytes (%) (Auto) 18.6 % (20.0-45.0) L Monocytes (%) (Auto) 7.7 % (1.0-10.0) Eosinophils (%) (Auto) 0.1 % (0.0-3.0) Basophils (%) (Auto) 0.5 % (0.0-2.0) Prothrombin Time 11.1 SEC (9.30-11.50) Prothromb Time International Ratio 1.1 (0.9-1.1) C-Reactive Protein, Quantitative 7.7 mg/dL (0.00-0.90) H Triglycerides Level 85 MG/DL (30-150) Cholesterol Level 179 MG/DL (< 200) LDL Cholesterol 106 mg/dL (<100) H HDL Cholesterol 59 MG/DL (40-60) Cholesterol/HDL Ratio 3.0 (3.3-4.4) L Thyroid Stimulating Hormone (TSH) 2.824 uiU/mL (0.358-3.740) Troponin I 0.000 ng/mL (0.000-0.056) Intake and Output 12/07/18 12/08/18 19:00 07:00 Intake Total 250 ml 274.898 ml Output Total 675 ml Balance 250 ml -400.102 ml Intake Oral 250 ml IV Total 274.898 ml Output Urine Total 675 ml # Voids 1 1 Objective PHYSICAL EXAMINATION: GENERAL: The patient is a well-developed and well-nourished thin-appearing male, who is in moderate pain. HEENT: Eyes, pupils are equal and responsive to light and accommodation. Extraocular movements are intact. NECK: Supple without lymphadenopathy. CHEST: Lungs are clear to auscultation bilaterally without wheezes or rales. CARDIOVASCULAR: Regular rhythm and rate. S1 and S2 are normal without murmurs, rubs, or gallops. ABDOMEN: Soft, nontender, nondistended. Positive bowel sounds. No evidence of hepatosplenomegaly. Currently, no rebound or guarding noted. EXTREMITIES: Negative for clubbing, cyanosis, or edema. RECTAL/GENITAL: Refused. NEUROLOGIC: Cranial nerves II through XII are grossly intact without focal deficits. Motor strength is 5/5 bilaterally. Deep tendon reflexes are 2+ plantar. Assessment/Plan Assessment/Plan ASSESSMENT: This is a 68-year-old male. 1. Acute thrombus of the left superficial femoral artery. 2. Left foot pain. 3. Diabetes type 2. 4. Hypertension. 5. Seizure disorder. 6. Coronary artery disease. 7. Peripheral vascular disease. TREATMENT: 1. Thrombosis of the left superficial femoral artery. The patient has been started on heparin drip. A Vascular Surgery consultation is pending. We will follow recommendation of Vascular Surgery. 2. Left foot pain. This secondary to ischemia of the left foot. 3. Diabetes type 2. The patient has been placed on NovoLog sliding scale. 4. Hypertension. Continue Coreg as above. 5. Seizure disorder. Continue Dilantin as above. 6. Coronary artery disease. Continue aspirin as above. 7. Peripheral vascular disease. 8. Transfer to [facility] for thrombectomy by Sukumar Moon MD December 08, 2018 17:39
--- NOTE | 2018-12-08 18:09 | NUR ---
NURSE NOTES: Patient transported to [facility] by ambulance report given to ELIESER Lopez informed patient discharge with Heparin drip the detail information given verbally and the discharge pocket sent with patient. Patient daughter notified of discharge, Unable to resume Heparin drip on the ambulance Dr. Rhodes aware ok to transport patient with out drip during route. Brandt aware to continue the therapy ASP after receiving the patient. Dr. Chávez notified of the situation as well.
--- NOTE | 2018-12-08 20:15 | Consultation ---
DATE OF CONSULTATION: 12/08/2018 CARDIOLOGY CONSULTATION CONSULTING PHYSICIAN: Jesus Wynn M.D. REFERRING PHYSICIAN: Luis Dahl M.D. REASON FOR REFERRAL: Cardiac evaluations, peripheral vascular disease, and vascular occlusion. HISTORY OF PRESENT ILLNESS: This is a middle-aged gentleman actually, 68-year-old, who has recently undergone a vascular procedure in the outside facility in the [place]. The patient called the paramedics today complaining of left foot pain, 10/10, redness and swelling with burning sensation and was ambulatory with assistance. He was transferred to the emergency room at [facility]. He was evaluated and was found to have vascular occlusion, and he is being evaluated by vascular surgery now. The patient denies any chest pain. No shortness of breath. No PND. No orthopnea. He uses two pillows for comfort. There is no lightheadedness, dizziness, or palpitations. PAST MEDICAL HISTORY: Positive for diabetes, high blood pressure, and high cholesterol. No prior history of heart attack. No cancer. No stroke. No hepatitis or tuberculosis. No asthma. No emphysema. No ulcers. No kidney problems, liver problems, thyroid problems, anemia, arthritis, or HIV. He does indicate that he had a blood clot somewhere in his legs and he had a vascular procedure performed and was told that this one is second time for the clot to resolve. This is according to the patient himself. He is not allergic to any medications. SOCIAL HISTORY: He smokes somewhere between 1 to 2-1/2 packs per day. No alcoholic beverages. Denies any drug use. ALLERGIES: He has no known drug allergies. REVIEW OF SYSTEMS: GASTROINTESTINAL: Negative. GENITOURINARY: Negative. PULMONARY: Negative. CONSTITUTIONAL: Negative. NEUROLOGICAL: He has numbness and tingling sensation to both his feet. MUSCULOSKELETAL: He has significant amount of pain in the left leg, cannot stand on that. PHYSICAL EXAMINATION: GENERAL: Shows to be elderly middle-aged gentleman, in no respiratory distress. NECK: Supple. No jugular venous distention. LUNGS: Appear to be clear to auscultation and percussion. CARDIAC: S1 is normal. S2 is normal. Regular rate and rhythm. No heaves, thrills, or gallops noted. ABDOMEN: Soft, nontender. Positive bowel sounds. EXTREMITIES: There is no edema. The left foot feels cool to touch, the right appears to be warm to touch. Pulses are decreased in both, but I am not going to palpated on the left foot. LABORATORY AND DIAGNOSTIC DATA: White count of 8.5 down from 12.2, hemoglobin 12.6, and platelet count of 370,000. Sodium is 135, potassium 4.4, chloride 98, bicarbonate 28, BUN is 17, creatinine is 0.9, and glucose of 141. Lactic acid of 1.2. Alkaline phosphatase of 220 and CK of 179. Troponin of 0. CRP of 7.7. Albumin of 3.4. Total cholesterol 179 with LDL of 109, HDL of 59, and triglycerides of 85. TSH of 2.84. Coags are pending at this time. Vascular study shows thrombus occlusion of the left mid to distal superficial femoral artery, popliteal artery, portions of trifurcations , but demonstrate poor flow. Records apparently have been sent from vascular digital advertising specialist and that indicates the patient apparently with history of claudication, active smoker, diabetes, hypertension, hyperlipidemia. He apparently underwent catheterization of the left leg. Test showed left anterior tibial artery was occluded with distal reconstitution and left tibioperoneal trunk was occluded, and underwent atherectomy and angioplasty and flow was restored. Left posterior tibial artery was occluded following atherectomy and angioplasty and line flow was restored, and popliteal artery had 80% stenosis. No significant residual flow was restored at that time. ASSESSMENT AND PLAN: 1. Thrombosis occlusion in the left mid to distal superficial femoral artery and popliteal artery. 2. History of recent atherectomy. 3. Diabetes. 4. Hypertension. 5. Hyperlipidemia history. 6. Tobacco use disorder. This patient has been seen in cardiac consultation. He really does not have any signs or symptoms of coronary syndrome. He does not have any chest pain. He had a vascular occlusion and he is being evaluated pending vascular surgical evaluation to treat his foot. He should be continued on his aspirin, statins, and Plavix. He is on anticoagulation, however, at the present time. Vascular input is being pending. EKG will be ordered. The patient will have an echocardiogram. He may require a limb salvage procedure and therefore not much time to perform any further workup. I will order the echocardiogram and EKG and continue to maintain the patient's other medications and the patient's vital signs appeared to be slightly on the high side. He may require eventually some more cut type control, but I will institute that probably after his vascular procedure to maintain degree of flow as much flow as possible to his legs. Jesus Wynn M.D. DR: COURTNEY JOB#: [id number] CC:
--- NOTE | 2018-12-09 10:41 | Discharge Summary ---
Discharge Summary Discharge Summary _ DATE OF ADMISSION: 12/07/2018 DATE OF DISCHARGE: 12/08/2018 DISCHARGED BY: Dr. Dahl REASON FOR ADMISSION: [] 68 years old male with past medical history of peripheral vascular disease, diabetes mellitus, hypertension, seizure disorder, presented to emergency department chief complaint of severe left pain. Patient was unable to tolerate pain anymore and came to emergency room for evaluation. He denies recent illness. He denied fever and chills. He denied chest pain or shortness of breath. Ultrasound of the left femoral artery revealed thrombosis/occlusion of the left mid to distal superficial femoral artery, popliteal artery. Portion of the trifurcation vessel were patent but demonstrated poor flow. Vascular surgeon was contacted by emergency room department and patient was admitted for further management of note patient was in the patient had been seen by vascular surgeon clinic and vascular surgery clinic about 10 days ago and underwent arteriogram. On clinical examination no pulse and foot appear cold CONSULTANTS: data security consultant Dr. Wynn pulmonary okay Dr. Montgomery [facility]SE: Patient admitted to the floor and started on heparin drip. Pain management was addressed. Cardiology and pulmonology followed . Per discussion with the vascular surgeon, patient required transfer to higher level of care for vascular procedure. Patient was placed on the waiting placed for transfer to the higher level of care for limp salvage procedure. Patient required cardiac clearance for potential surgery. Echocardiogram revealed preserved ejection fraction 55 to 60% with no evidence of wall motion abnormality. Mild left ventricular hypertrophy. No evidence of pericardial effusion. Grade 1 diastolic dysfunction. Right ventricular systolic pressure of 12. Lipid panel revealed elevated LDL of 106 . TSH within normal limits. Troponin negative . EKG revealed sinus rhythm , no acute ischemic changes Patient had no signs or symptoms of acute coronary syndrome, no chest pain . Patient was continued on antiplatelet therapy with aspirin , Plavix, and statin . Patient also was on heparin drip . Beta blockade provided. Blood pressure was managed with beta-nael and Hytrin. Supplemental oxygen provided as needed to keep pulse oximetry above 92%. Pulmonary toilet was on standby as needed. Blood sugar was managed with sliding scale of insulin. Seizure precaution maintained. Dilantin continued. No evidence of seizure activity while in the hospital . Bowel regimen instituted. Supportive care provided. Continued. GI prophylaxis provided Transfer subsequently was arranged and patient was transferred via [facility] ambulance for higher level of care to [facility]. FINAL DIAGNOSES: Acute thrombosis occlusion in the left mid to distal superficial femoral artery and popliteal artery History of recent atherectomy Diabetes Hypertension Hyperlipidemia Tobacco use disorder Seizure disorder PVD Coronary artery disease Severe left foot pain secondary to arterial occlusion DISCHARGE MEDICATIONS: See Medication Reconciliation list. DISCHARGE INSTRUCTIONS: Patient was transferred to [facility] for vascular intervention by Dr. Candelario. I have been assigned to dictate discharge summary for this account. I was not involved in the patient's management. Ira Maldonado NP December 09, 2018 10:41
== END 2018-12-08 18:15 | disposition short-term general hospital (02) | DRG 197 ==
LOC: EDBD 12:34 → EMR 13:40 → 3E 14:56 → EDBEDREQ 16:06
DX: I74.3 Embolism and thrombosis of arteries of the lower extremities (principal); E11.9 Type 2 diabetes mellitus without complications; M79.672 Pain in left foot; I10 Essential (primary) hypertension; G40.909 Epilepsy, unspecified, not intractable, without status epilepticus; I25.10 Atherosclerotic heart disease of native coronary artery without angina pectoris; Z79.84 Long term (current) use of oral hypoglycemic drugs; F17.200 Nicotine dependence, unspecified, uncomplicated; E78.5 Hyperlipidemia, unspecified
CPT/HCPCS: 36415; 80053; 80061; 82550; 82962; 83605; 84443; 84484; 85025; 85610; 85730; 86140; 93306; 93926; 96374; 99285; J1815

== ENCOUNTER 2019-12-30 09:09 | Inpatient (IN) | payer MEDICAID, MEDICARE ==
[~2019-12-30] VITALS: Ht 185.4 cm; Wt 94.8 kg
[~2019-12-30 09:09] MED LIST changes: +HEPARIN-D525000 UNI1 IV
[2019-12-30] MEDS ORDERED: Vancomycin 1.5gm/NS Premix 275 ML IVPB ONE (09:15)
--- NOTE | 2019-12-30 09:26 | Emergency Room Report ---
History of Present Illness General Chief Complaint: Lower Extremity Injury Source: Patient, EMS Present Illness HPI Patient is a 69-year-old male past medical history of diabetes status post left partial foot amputation in 2008 and diabetic neuropathy who presents to the ER complaining of left foot pain. Patient states that he has had chronic pain since his surgery. He states that he is on gabapentin but it is not helping. Patient denies any fever or chills. He denies any trauma. Patient states that he is seen by a nurse who wrapped his foot for him. Patient was brought in by EMS. He denies any chest pain or shortness of breath. He denies any cough. Allergies: Coded Allergies: No Known Allergies (Unverified , 05/07/14) COVID-19 Screening Contact w/high risk pt: No Recent Travel to affected area: No Experienced COVID-19 symptoms?: No COVID-19 Testing performed HATCHERY MANAGER: No Patient History Reviewed Nursing Documentation: PMH: Agreed; PSxH: Agreed Nursing Documentation-PMH Hx Cardiac Problems: Yes Hx Hypertension: Yes Hx Diabetes: Yes Hx Cancer: No Hx Gastrointestinal Problems: No Hx Neurological Problems: Yes Hx Transient Ischemic Attacks: No Hx Dementia: No Hx Alzheimer's Disease: No Hx Parkinson's Disease: No Hx Meningitis: No Hx Encephalitis: No Hx Seizures: Yes Hx Epilepsy: No Hx Multiple Sclerosis: No Hx Cerebral Palsy: No Hx Amyotrophic Lat Sclerosis: No Hx Guillian-[place] Syndrome: No Hx Paralysis: No Hx Peripheral Neuropathy: No 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 Hx Head Trauma: No Hx Traumatic Brain Injury: No Hx Memory Loss: No Hx Concentration Difficulty: No Hx Speech Problem: No Hx Tremors: No Hx Vertigo: No Hx Dizziness: Yes Hx Syncope: No Hx Headaches: Yes Hx Aphasia: No Hx Dysphasia: No Hx Numbness: No Hx Weakness: Yes - BLE Hx Fatigue: Yes Hx Neurologic Surgery: No Hx Brain Shunt: No Review of Systems All Other Systems: negative except mentioned in HPI Physical Exam Vital Signs Date Time Temp Pulse Resp B/P (MAP) Pulse Ox O2 Delivery O2 Flow Rate FiO2 12/30/19 09:04 97.2 104 20 129/74 (92) 96 Room Air Sp02 EP Interpretation: reviewed, normal General Appearance: alert, GCS 15, non-toxic, mild distress Head: normocephalic, atraumatic Eyes: bilateral eye normal inspection, bilateral eye PERRL ENT: hearing grossly normal, normal pharynx, no angioedema, normal voice Neck: full range of motion, supple/symm/no masses Respiratory: chest non-tender, lungs clear, normal breath sounds, speaking full sentences Cardiovascular #1: regular rate, rhythm, no edema Gastrointestinal: normal bowel sounds, non tender, soft, non-distended, no guarding, no rebound Rectal: deferred Genitourinary: no CVA tenderness Musculoskeletal: other - Left foot status post partial amputation diffuse redness and swelling with tenderness to palpation mid lateral open ulceration with purulent discharge Neurologic: alert, motor strength/tone normal, oriented x3, sensory intact, responsive, speech normal Psychiatric: no suicidal/homicidal ideation Skin: no rash Medical Decision Making Diagnostic Impression: Primary Impression: Diabetic foot ulcer Additional Impressions: Diabetes mellitus Anemia Hyperglycemia ER Course Blood cultures have been sent. Patient given IV vancomycin as well as Levaquin for MRSA and Pseudomonas coverage. Wound culture has been ordered. Patient to be admitted for further treatment and evaluation. Laboratory Tests Test 12/30/19 09:50 White Blood Count 6.6 K/UL (4.8-10.8) Red Blood Count 4.19 M/UL (4.70-6.10) L Hemoglobin 11.6 G/DL (14.2-18.0) L Hematocrit 38.6 % (42.0-52.0) L Mean Corpuscular Volume 92 FL (80-99) Mean Corpuscular Hemoglobin 27.8 PG (27.0-31.0) Mean Corpuscular Hemoglobin Concent 30.2 G/DL (32.0-36.0) L Red Cell Distribution Width 14.9 % (11.6-14.8) H Platelet Count 260 K/UL (150-450) Mean Platelet Volume 7.1 FL (6.5-10.1) Neutrophils (%) (Auto) 70.5 % (45.0-75.0) Lymphocytes (%) (Auto) 22.1 % (20.0-45.0) Monocytes (%) (Auto) 5.6 % (1.0-10.0) Eosinophils (%) (Auto) 0.8 % (0.0-3.0) Basophils (%) (Auto) 0.9 % (0.0-2.0) Prothrombin Time 10.0 SEC (9.30-11.50) Prothrombin Time INR 0.9 (0.9-1.1) Activated Partial Thromboplast Time 25 SEC (23-33) Sodium Level 142 MMOL/L (136-145) Potassium Level 4.5 MMOL/L (3.5-5.1) Chloride Level 105 MMOL/L (98-107) Carbon Dioxide Level 27 MMOL/L (21-32) Anion Gap 10 mmol/L (5-15) Blood Urea Nitrogen 19 mg/dL (7-18) H Creatinine 1.2 MG/DL (0.55-1.30) Estimated Glomerular Filtration Rate > 60 mL/min (>60) Glucose Level 152 MG/DL (74-106) H Lactic Acid Level Pending Calcium Level 9.4 MG/DL (8.5-10.1) Magnesium Level 1.8 MG/DL (1.8-2.4) Total Bilirubin 0.2 MG/DL (0.2-1.0) Aspartate Amino Transferase (AST) 11 U/L (15-37) L Alanine Aminotransferase (ALT) 19 U/L (12-78) Alkaline Phosphatase 107 U/L (46-116) Total Creatine Kinase 91 U/L (26-308) Total Protein 7.2 G/DL (6.4-8.2) Albumin 3.5 G/DL (3.4-5.0) Globulin 3.7 g/dL Albumin/Globulin Ratio 0.9 (1.0-2.7) L Rhythm Strip Diag. Results Rhythm Strip Time: 09:35 EP Interpretation: yes - MD Brandon Rate: 89 Rhythm: NSR, no PVC's, no ectopy Chest X-Ray Diagnostic Results Chest X-Ray Diagnostic Results : Chest X-Ray Ordered: Yes # of Views/Limited/Complete: 1 View Indication: Other - infection EP Interpretation: Yes Interpretation: no consolidation, no effusion, no pneumothorax Impression: No acute disease Electronically Signed by: Aurora Taylor MD Other X-Ray Diagnostic Results Other X-Ray Diagnostic Results : X-Ray ordered: L foot # of Views/Limited Vs Complete: 3 View Indication: Pain EP Interpretation: Yes Interpretation: no dislocation, no soft tissue swelling, no fractures Impression: No acute disease - sp partial foot amputation Electronically Signed by: MD Brandon Last Vital Signs Date Time Temp Pulse Resp B/P (MAP) Pulse Ox O2 Delivery O2 Flow Rate FiO2 12/30/19 09:04 97.2 104 20 129/74 (92) 96 Room Air Disposition: ADMITTED INPATIENT - Medical Floor Condition: Critical Physician Consult: Dr. Wilson at 1045am Aurora Taylor M.D. December 30, 2019 09:26
[2019-12-30] MEDS ORDERED: CLOPIDOGREL75 MG ORAL (09:33)
[2019-12-30] MEDS ORDERED: ZOLPIDEM TARTRAT5 MG ORAL (09:33)
[2019-12-30] MEDS ORDERED: PAMELOR10 MG ORAL (09:33)
[2019-12-30] MEDS ORDERED: GLIPIZIDE5 MG ORAL (09:33)
[2019-12-30] MEDS ORDERED: PANTOPRAZOLE SO40 MG ORAL (09:33)
--- NOTE | 2019-12-30 09:47 | NUR ---
ED Nurse Note:pt. was BIBA from home with open diabetic ulcer on left foot. All left toes are amputated, pt. is A/Ox4 ambulatory with cane, blood and cultures sent to labs and pt. given IV antibiotics
[2019-12-30 10:16] LABS: BASOPHILS % (AUTO) 0.9 % (0.0-2.0); EOSINOPHILS % (AUTO) 0.8 % (0.0-3.0); HEMATOCRIT 38.6 % (42.0-52.0); HEMOGLOBIN 11.6 G/DL (14.2-18.0); LYMPHOCYTES % (AUTO) 22.1 % (20.0-45.0); MEAN CORPUSCULAR VOLUME 92 FL (80-99); MONOCYTES % (AUTO) 5.6 % (1.0-10.0); NEUTROPHILS % (AUTO) 70.5 % (45.0-75.0); PLATELET COUNT 260 K/UL (150-450); RED BLOOD COUNT 4.19 M/UL (4.70-6.10); RED CELL DISTRIBUTION WIDTH 14.9 % (11.6-14.8); WHITE BLOOD COUNT 6.6 K/UL (4.8-10.8)
--- NOTE | 2019-12-30 10:20 | Diagnostic Imaging Report ---
Procedure: XRAY Chest 1v Reason for study: Chest pain Comparison films: 05/07/2014. FINDINGS: A single one view chest is obtained. Vascularity is normal. The lung abbtot are clear bilaterally. Cardiac and mediastinal silhouette are within normal limits. CP angles are sharp. The bony thorax appear unremarkable. IMPRESSION: NO ACUTE CARDIOPULMONARY DISEASE.
[2019-12-30] MEDS ORDERED: fentaNYL 100 mcg/2 mL IV ONE ×2 (10:23→10:30)
[2019-12-30 10:31] LABS: INR 0.9 (0.9-1.1)
[2019-12-30 10:36] LABS: ANION GAP 10 mmol/L (5-15); BLOOD UREA NITROGEN 19 mg/dL (7-18); CALCIUM 9.4 MG/DL (8.5-10.1); CARBON DIOXIDE 27 MMOL/L (21-32); CHLORIDE 105 MMOL/L (98-107); CREATININE 1.2 MG/DL (0.55-1.30); POTASSIUM 4.5 MMOL/L (3.5-5.1); SODIUM 142 MMOL/L (136-145)
[2019-12-30 10:41] LABS: ALANINE AMINOTRANSFERASE 19 U/L (12-78); ALBUMIN 3.5 G/DL (3.4-5.0); ALBUMIN/GLOBULIN RATIO 0.9 (1.0-2.7); ALKALINE PHOSPHATASE 107 U/L (46-116); ASPARTATE AMINO TRANSFERASE 11 U/L (15-37); BILIRUBIN,TOTAL 0.2 MG/DL (0.2-1.0); CREATINE KINASE 91 U/L (26-308)
[2019-12-30] MEDS ORDERED: Miralax 17gm pkt ORAL PRN (11:15)
[2019-12-30] MEDS ORDERED: Albuterol/Ipratropium 3ml neb HHN PRN (11:15)
[2019-12-30] MEDS ORDERED: Nitroglycerin Subl 0.4mg tab SL PRN (11:15)
[2019-12-30] MEDS: NovoLOG Insulin Flexpen SUBQ SCH ×3 (11:30→21:30)
--- NOTE | 2019-12-30 11:40 | NUR ---
ED Nurse Note:lactic reflax was sent to labs
[2019-12-30 11:55] VITALS: BP 142/77
--- NOTE | 2019-12-30 12:25 | NUR ---
ED Nurse Note:called 4 east with report- given to RN, pt. was taken up stairs, condition stable
--- NOTE | 2019-12-30 13:00 | Diagnostic Imaging Report ---
EXAM: X-RAY XRAY Foot Complete L CLINICAL HISTORY: Foot pain. Open sore. COMPARISON: None FINDINGS: Total of 3 views of the left foot were obtained. There is generalized osteopenia. Patient is status post transmetatarsal amputation across all rays. Metallic cerclage wire noted at the distal margin of the fifth metatarsal. Surgical margins are sharp. There is no fracture, bony lesions or erosions. Joint spaces are unremarkable. Soft tissue ulceration noted along the plantar aspect of the forefoot. IMPRESSION: SOFT TISSUE ULCERATION. STATUS POST TRANSMETATARSAL AMPUTATION. NO RADIOGRAPHIC EVIDENCE OF OSTEOMYELITIS PRESENTLY.
--- NOTE | 2019-12-30 13:05 | NUR ---
NURSE NOTES: Patient arrived the unit via gurney; received telephone report from ELIESER Baker from ER; patient alert x4; on room air, no sing of distress or shortness of breath; no sing of chest pain; IV Right For-Arm flushes well; patient's Left foot Toes amputated and has open wound on the right lateral amputated foot; belonging lists counted and sing by transferring and receiving nurse; patient's own cane at the bed side; side rails up x2, breaks engaged, bed at lowest position; call light within reach; will keep monitoring.
[2019-12-30 13:12] VITALS: BP 140/84
[2019-12-30] MEDS ORDERED: HYDROcodone/Acetamin 10/325 tab ORAL PRN (13:15)
--- NOTE | 2019-12-30 13:23 | Consultation ---
History of Present Illness General Date patient seen: December 30, 2019 Chief Complaint: Lower Extremity Injury Present Illness HPI 69-year-old male past medical history of diabetes, left partial foot amputation, diabetic neuropathy who presented to the ER complaining of left foot pain. Patient states that he has had chronic pain since his surgery. Patient denied any fever or chills. He denied any trauma. He was afebrile in ER with normal WBC. He is admitted for treatment of diabetic foot ulcer and cellullitis. Allergies: Coded Allergies: No Known Allergies (Unverified , 05/07/14) Medication History Scheduled Aspirin Ec* (Aspirin Ec*), 81 MG PO DAILY, (Reported) Aspirin* (Aspir-Low*), 81 MG ORAL BEDTIME, (Reported) Atorvastatin Calcium* (Lipitor*), 20 MG ORAL BEDTIME Carvedilol* (Carvedilol*), 6.25 MG PO BID, (Reported) Carvedilol* (Carvedilol*), 6.25 MG ORAL BID, (Reported) Clopidogrel* (Clopidogrel*), Unknown Dose ORAL DAILY, (Reported) Dextran 70/Hypromellose (Artificial Tears Eye Drops*), 1 DROP BOTH EYES QID Glipizide* (Glipizide*), Unknown Dose ORAL BIDAC, (Reported) Isosorbide Mononitrate (Isosorbide Mononitrate Er), 30 MG PO DAILY, (Reported) Metformin Hcl* (Metformin Hcl*), 1,000 MG PO BID, (Reported) Nortriptyline Hcl* (Pamelor*), Unknown Dose ORAL DAILY, (Reported) Pantoprazole* (Pantoprazole*), 40 MG ORAL DAILY, (Reported) Phenytoin Sodium Extended* (Dilantin*), 300 MG PO HS, (Reported) Phenytoin Sodium Extended* (Dilantin*), 200 MG ORAL TWICE A DAY Spironolactone* (Aldactone*), 25 MG PO DAILY, (Reported) Spironolactone* (Spironolactone*), 25 MG ORAL DAILY, (Reported) Terazosin HCl (Terazosin HCl), 5 MG PO BEDTIME, (Reported) [Cyproheptadine Hcl], 4 MG ORAL THREE TIMES A DAY Scheduled PRN Hydrocodone Bit/Acetaminophen 5-325* ([place] 5-325*), 1 TAB ORAL Q6H PRN for For Pain Ibuprofen (Motrin), 600 MG ORAL Q8H PRN for For Pain Zolpidem Tartrate* (Zolpidem Tartrate*), 5 MG ORAL BEDTIME PRN for Insomnia, ( Reported) Miscellaneous Medications Heparin Sod/Dextrose* (Heparin-D5w 25,000 Unit/500 Ml*), 22 UNIT IV, (Reported) Patient History Healthcare decision maker Resuscitation status Advanced Directive on File Past Medical/Surgical History Past Medical/Surgical History: (1) History of CVA (cerebrovascular accident) (2) PVD (peripheral vascular disease) (3) Cardiomyopathy (4) CAD (coronary artery disease) (5) Diabetes mellitus (6) Epileptic seizure, generalized Physical Exam General Appearance: WD/WN, no apparent distress Lines, tubes and drains: peripheral HEENT: normocephalic, anicteric Neck: non-tender, supple Respiratory/Chest: chest wall non-tender, normal breath sounds Breasts: no masses Cardiovascular/Chest: normal peripheral pulses, normal rate Genitourinary/Rectal: normal genital exam, heme negative stool Extremities: normal range of motion Last 24 Hour Vital Signs Date Time Temp Pulse Resp B/P (MAP) Pulse Ox O2 Delivery O2 Flow Rate FiO2 12/30/19 12:37 97.2 84 20 142/77 99 Room Air 12/30/19 11:55 97.2 84 20 142/77 99 Room Air 12/30/19 11:00 97.2 12/30/19 09:04 97.2 104 20 129/74 (92) 96 Room Air Laboratory Tests Test 12/30/19 09:50 12/30/19 11:35 White Blood Count 6.6 K/UL (4.8-10.8) Red Blood Count 4.19 M/UL (4.70-6.10) L Hemoglobin 11.6 G/DL (14.2-18.0) L Hematocrit 38.6 % (42.0-52.0) L Mean Corpuscular Volume 92 FL (80-99) Mean Corpuscular Hemoglobin 27.8 PG (27.0-31.0) Mean Corpuscular Hemoglobin Concent 30.2 G/DL (32.0-36.0) L Red Cell Distribution Width 14.9 % (11.6-14.8) H Platelet Count 260 K/UL (150-450) Mean Platelet Volume 7.1 FL (6.5-10.1) Neutrophils (%) (Auto) 70.5 % (45.0-75.0) Lymphocytes (%) (Auto) 22.1 % (20.0-45.0) Monocytes (%) (Auto) 5.6 % (1.0-10.0) Eosinophils (%) (Auto) 0.8 % (0.0-3.0) Basophils (%) (Auto) 0.9 % (0.0-2.0) Prothrombin Time 10.0 SEC (9.30-11.50) Prothromb Time International Ratio 0.9 (0.9-1.1) Activated Partial Thromboplast Time 25 SEC (23-33) Sodium Level 142 MMOL/L (136-145) Potassium Level 4.5 MMOL/L (3.5-5.1) Chloride Level 105 MMOL/L (98-107) Carbon Dioxide Level 27 MMOL/L (21-32) Anion Gap 10 mmol/L (5-15) Blood Urea Nitrogen 19 mg/dL (7-18) H Creatinine 1.2 MG/DL (0.55-1.30) Estimat Glomerular Filtration Rate > 60 mL/min (>60) Glucose Level 152 MG/DL (74-106) H Lactic Acid Level 2.50 mmol/L (0.4-2.0) H 2.40 mmol/L (0.66-2.22) H Calcium Level 9.4 MG/DL (8.5-10.1) Magnesium Level 1.8 MG/DL (1.8-2.4) Total Bilirubin 0.2 MG/DL (0.2-1.0) Aspartate Amino Transf (AST/SGOT) 11 U/L (15-37) L Alanine Aminotransferase (ALT/SGPT) 19 U/L (12-78) Alkaline Phosphatase 107 U/L (46-116) Total Creatine Kinase 91 U/L (26-308) Total Protein 7.2 G/DL (6.4-8.2) Albumin 3.5 G/DL (3.4-5.0) Globulin 3.7 g/dL Albumin/Globulin Ratio 0.9 (1.0-2.7) L Height (Feet): 6 Height (Inches): 2.00 Weight (Pounds): 210 Medications Current Medications Medications (Trade) Dose Ordered Sig/Mell Route PRN Reason Start Time Stop Time Status Last Admin Dose Admin Acetaminophen (Tylenol) 650 mg Q4H PRN ORAL fever 12/30/19 11:15 01/29/20 11:14 Albuterol/ Ipratropium (Albuterol/ Ipratropium) 3 ml EVERY 4 HOURS PRN HHN Shortness of Breath 12/30/19 11:15 01/04/20 11:14 Aspirin (Ecotrin) 81 mg DAILY ORAL 12/31/19 09:00 02/14/20 08:59 Atorvastatin Calcium (Lipitor) 20 mg BEDTIME ORAL 12/30/19 21:00 03/29/20 20:59 Carvedilol (Coreg) 6.25 mg BID ORAL 12/30/19 18:00 01/29/20 17:59 Cefepime HCl 2 gm/ Dextrose 110 ml @ 220 mls/hr EVERY 12 HOURS IV 12/30/19 21:00 01/06/20 20:59 Clopidogrel Bisulfate (Plavix) 75 mg DAILY ORAL 12/31/19 09:00 01/30/20 08:59 Dextrose (Dextrose 50%) 25 ml Q30M PRN IV Hypoglycemia 12/30/19 11:15 03/29/20 11:14 Dextrose (Dextrose 50%) 50 ml Q30M PRN IV Hypoglycemia 12/30/19 11:15 03/29/20 11:14 Heparin Sodium (Porcine) (Heparin 5000 units/ml) 5,000 units EVERY 12 HOURS SUBQ 12/30/19 21:00 02/13/20 20:59 Insulin Aspart (NovoLOG) BEFORE MEALS AND HS SUBQ 12/30/19 11:30 03/29/20 11:29 Nitroglycerin (Ntg) 0.4 mg Q 5 MINS PRN SL . PRN CHEST PAIN 12/30/19 11:15 01/29/20 11:14 Ondansetron HCl (Zofran) 4 mg Q6H PRN IVP Nausea & Vomiting 12/30/19 11:15 01/29/20 11:14 Phenytoin (Dilantin) 200 mg TWICE A DAY ORAL 12/30/19 18:00 01/29/20 17:59 Polyethylene Glycol (Miralax) 17 gm DAILYPRN PRN ORAL Constipation 12/30/19 11:15 01/29/20 11:14 Temazepam (Restoril) 15 mg HSPRN PRN ORAL Insomnia 12/30/19 11:15 01/06/20 11:14 Terazosin HCl (Hytrin) 5 mg BEDTIME ORAL 12/30/19 21:00 01/29/20 20:59 Vancomycin HCl 1 gm/Dextrose 275 ml @ 183.3 mls/ hr Q24H IV 12/31/19 00:30 01/05/20 00:29 UNV Assessment/Plan Problem List: (1) Diabetic foot ulcer ICD Codes: E11.621 - Type 2 diabetes mellitus with foot ulcer; L97.509 - Non- pressure chronic ulcer of other part of unspecified foot with unspecified severity SNOMED: 034259806, 02357762 (2) Cellulitis ICD Codes: L03.90 - Cellulitis, unspecified SNOMED: 439729910 (3) CAD (coronary artery disease) ICD Codes: I25.10 - Atherosclerotic heart disease of [place] coronary artery without angina pectoris SNOMED: 55773094 (4) PVD (peripheral vascular disease) ICD Codes: I73.9 - Peripheral vascular disease, unspecified SNOMED: 424962036 (5) History of CVA (cerebrovascular accident) ICD Codes: Z86.73 - Personal history of transient ischemic attack (TIA), and cerebral infarction without residual deficits SNOMED: 592478778 (6) Epileptic seizure, generalized ICD Codes: G40.909 - Epilepsy, unspecified, not intractable, without status epilepticus SNOMED: 41229490 (7) Diabetes mellitus ICD Codes: E11.9 - Type 2 diabetes mellitus without complications SNOMED: 75247287 Assessment/Plan: wound culture iv abx pain management sliding scale diabetic diet symptomatic treatment. Herson Montgomery MD December 30, 2019 13:23
[2019-12-30] MEDS: Morphine Sulfate 2mg/ml Inj(IV/IM USE ONLY) IVP PRN ×3 (13:56→23:18)
--- NOTE | 2019-12-30 14:40 | Consultation ---
Consult Note Assessment/Plan A/ 1) Ischemic ulcer left foot 2) PAD 3) DM 4) s/p TMA 5) Pain from ischemia since December of 2018 P/ 1) Wound care ordered 2) Will order MRI of left foot 3) Needs vascular follow up 4) Will follow. Thank you Miguel Coburn DPM December 30, 2019 14:40
[2019-12-30] MEDS ORDERED: Vancomycin 1.5gm/NS Premix 275 ML IVPB SCH (15:00)
[2019-12-30 16:00] VITALS: BP 138/79
--- NOTE | 2019-12-30 16:10 | Consultation ---
History of Present Illness General Date patient seen: December 30, 2019 Chief Complaint: Lower Extremity Injury Present Illness HPI 69 y/o M with hx of PAD, HTN, Dm2 c/w neuropathy, PVD s/p L TMA, chronic ischemic foot pain presented to ED on 12/29 with L foot pain and ulcer. Denied fever, chills, trauma, cough, SOB, chest pain. Allergies: Coded Allergies: No Known Allergies (Unverified , 05/07/14) Medication History Scheduled Aspirin Ec* (Aspirin Ec*), 81 MG PO DAILY, (Reported) Aspirin* (Aspir-Low*), 81 MG ORAL BEDTIME, (Reported) Atorvastatin Calcium* (Lipitor*), 20 MG ORAL BEDTIME Carvedilol* (Carvedilol*), 6.25 MG PO BID, (Reported) Carvedilol* (Carvedilol*), 6.25 MG ORAL BID, (Reported) Clopidogrel* (Clopidogrel*), Unknown Dose ORAL DAILY, (Reported) Dextran 70/Hypromellose (Artificial Tears Eye Drops*), 1 DROP BOTH EYES QID Glipizide* (Glipizide*), Unknown Dose ORAL BIDAC, (Reported) Isosorbide Mononitrate (Isosorbide Mononitrate Er), 30 MG PO DAILY, (Reported) Metformin Hcl* (Metformin Hcl*), 1,000 MG PO BID, (Reported) Nortriptyline Hcl* (Pamelor*), Unknown Dose ORAL DAILY, (Reported) Pantoprazole* (Pantoprazole*), 40 MG ORAL DAILY, (Reported) Phenytoin Sodium Extended* (Dilantin*), 300 MG PO HS, (Reported) Phenytoin Sodium Extended* (Dilantin*), 200 MG ORAL TWICE A DAY Spironolactone* (Aldactone*), 25 MG PO DAILY, (Reported) Spironolactone* (Spironolactone*), 25 MG ORAL DAILY, (Reported) Terazosin HCl (Terazosin HCl), 5 MG PO BEDTIME, (Reported) [Cyproheptadine Hcl], 4 MG ORAL THREE TIMES A DAY Scheduled PRN Hydrocodone Bit/Acetaminophen 5-325* ([place] 5-325*), 1 TAB ORAL Q6H PRN for For Pain Ibuprofen (Motrin), 600 MG ORAL Q8H PRN for For Pain Zolpidem Tartrate* (Zolpidem Tartrate*), 5 MG ORAL BEDTIME PRN for Insomnia, ( Reported) Miscellaneous Medications Heparin Sod/Dextrose* (Heparin-D5w 25,000 Unit/500 Ml*), 22 UNIT IV, (Reported) Patient History Healthcare decision maker Resuscitation status Advanced Directive on File Patient History Narrative Pmhx: as above SHx: reviewed Fhx: non contributory Review of Systems All Other Systems: negative except mentioned in HPI Physical Exam Physical Exam Narrative General Appearance: alert, non-toxic Eyes: bilateral eye normal inspection, bilateral eye PERRL ENT: hearing grossly normal, normal pharynx, no angioedema, normal voice Neck: full range of motion Respiratory: chest non-tender, lungs clear, normal breath sounds, speaking full sentences Cardiovascular regular rate, rhythm, no edema Gastrointestinal: normal bowel sounds, non tender, soft, non-distended, no guarding, no rebound Musculoskeletal: other - Left foot status post partial amputation diffuse redness and swelling with tenderness to palpation mid lateral open ulceration with purulent discharge Skin: no rash Last 24 Hour Vital Signs Date Time Temp Pulse Resp B/P (MAP) Pulse Ox O2 Delivery O2 Flow Rate FiO2 12/30/19 14:46 Room Air 12/30/19 14:26 97.5 12/30/19 13:12 97.5 85 20 140/84 (102) 94 12/30/19 12:37 97.2 84 20 142/77 99 Room Air 12/30/19 11:55 97.2 84 20 142/77 99 Room Air 12/30/19 11:00 97.2 12/30/19 09:04 97.2 104 20 129/74 (92) 96 Room Air Laboratory Tests Test 12/30/19 09:50 12/30/19 11:35 White Blood Count 6.6 K/UL (4.8-10.8) Red Blood Count 4.19 M/UL (4.70-6.10) L Hemoglobin 11.6 G/DL (14.2-18.0) L Hematocrit 38.6 % (42.0-52.0) L Mean Corpuscular Volume 92 FL (80-99) Mean Corpuscular Hemoglobin 27.8 PG (27.0-31.0) Mean Corpuscular Hemoglobin Concent 30.2 G/DL (32.0-36.0) L Red Cell Distribution Width 14.9 % (11.6-14.8) H Platelet Count 260 K/UL (150-450) Mean Platelet Volume 7.1 FL (6.5-10.1) Neutrophils (%) (Auto) 70.5 % (45.0-75.0) Lymphocytes (%) (Auto) 22.1 % (20.0-45.0) Monocytes (%) (Auto) 5.6 % (1.0-10.0) Eosinophils (%) (Auto) 0.8 % (0.0-3.0) Basophils (%) (Auto) 0.9 % (0.0-2.0) Prothrombin Time 10.0 SEC (9.30-11.50) Prothromb Time International Ratio 0.9 (0.9-1.1) Activated Partial Thromboplast Time 25 SEC (23-33) Sodium Level 142 MMOL/L (136-145) Potassium Level 4.5 MMOL/L (3.5-5.1) Chloride Level 105 MMOL/L (98-107) Carbon Dioxide Level 27 MMOL/L (21-32) Anion Gap 10 mmol/L (5-15) Blood Urea Nitrogen 19 mg/dL (7-18) H Creatinine 1.2 MG/DL (0.55-1.30) Estimat Glomerular Filtration Rate > 60 mL/min (>60) Glucose Level 152 MG/DL (74-106) H Lactic Acid Level 2.50 mmol/L (0.4-2.0) H 2.40 mmol/L (0.66-2.22) H Calcium Level 9.4 MG/DL (8.5-10.1) Magnesium Level 1.8 MG/DL (1.8-2.4) Total Bilirubin 0.2 MG/DL (0.2-1.0) Aspartate Amino Transf (AST/SGOT) 11 U/L (15-37) L Alanine Aminotransferase (ALT/SGPT) 19 U/L (12-78) Alkaline Phosphatase 107 U/L (46-116) Total Creatine Kinase 91 U/L (26-308) Total Protein 7.2 G/DL (6.4-8.2) Albumin 3.5 G/DL (3.4-5.0) Globulin 3.7 g/dL Albumin/Globulin Ratio 0.9 (1.0-2.7) L Height (Feet): 6 Height (Inches): 1.00 Weight (Pounds): 210 Medications Current Medications Medications (Trade) Dose Ordered Sig/Mell Route PRN Reason Start Time Stop Time Status Last Admin Dose Admin Acetaminophen (Tylenol) 650 mg Q4H PRN ORAL fever 12/30/19 11:15 01/29/20 11:14 Acetaminophen/ Hydrocodone Bitart ([place] 10/325) 1 tab Q4H PRN ORAL For Pain 4-6 12/30/19 13:15 01/06/20 13:14 Albuterol/ Ipratropium (Albuterol/ Ipratropium) 3 ml EVERY 4 HOURS PRN HHN Shortness of Breath 12/30/19 11:15 01/04/20 11:14 Aspirin (Ecotrin) 81 mg DAILY ORAL 12/31/19 09:00 02/14/20 08:59 Atorvastatin Calcium (Lipitor) 20 mg BEDTIME ORAL 12/30/19 21:00 03/29/20 20:59 Carvedilol (Coreg) 6.25 mg BID ORAL 12/30/19 18:00 01/29/20 17:59 Cefepime HCl 2 gm/ Dextrose 110 ml @ 220 mls/hr EVERY 12 HOURS IV 12/30/19 21:00 01/06/20 20:59 Clopidogrel Bisulfate (Plavix) 75 mg DAILY ORAL 12/31/19 09:00 01/30/20 08:59 Dextrose (Dextrose 50%) 25 ml Q30M PRN IV Hypoglycemia 12/30/19 11:15 03/29/20 11:14 Dextrose (Dextrose 50%) 50 ml Q30M PRN IV Hypoglycemia 12/30/19 11:15 03/29/20 11:14 Heparin Sodium (Porcine) (Heparin 5000 units/ml) 5,000 units EVERY 12 HOURS SUBQ 12/30/19 21:00 02/13/20 20:59 Insulin Aspart (NovoLOG) BEFORE MEALS AND HS SUBQ 12/30/19 11:30 03/29/20 11:29 Morphine Sulfate (Morphine Sulfate) 2 mg Q4H PRN IVP For Pain 7-10 12/30/19 13:15 01/06/20 13:14 12/30/19 13:56 Nitroglycerin (Ntg) 0.4 mg Q 5 MINS PRN SL . PRN CHEST PAIN 12/30/19 11:15 01/29/20 11:14 Ondansetron HCl (Zofran) 4 mg Q6H PRN IVP Nausea & Vomiting 12/30/19 11:15 01/29/20 11:14 Phenytoin (Dilantin) 200 mg TWICE A DAY ORAL 12/30/19 18:00 01/29/20 17:59 Polyethylene Glycol (Miralax) 17 gm DAILYPRN PRN ORAL Constipation 12/30/19 11:15 01/29/20 11:14 Temazepam (Restoril) 15 mg HSPRN PRN ORAL Insomnia 12/30/19 11:15 01/06/20 11:14 Terazosin HCl (Hytrin) 5 mg BEDTIME ORAL 12/30/19 21:00 01/29/20 20:59 Vancomycin HCl 1 gm/Dextrose 275 ml @ 183.708 mls/hr Q12H IVPB 12/31/19 03:00 01/05/20 02:59 Vancomycin/Sodium Chloride 275 ml @ 160 mls/hr ONCE IVPB 12/30/19 15:00 12/30/19 17:00 12/30/19 15:47 Assessment/Plan Assessment/Plan: Abx: IV Vancomycin 12/29- Cefepime 12/29- Levaquin x1 12/29 Assessment: L foot pain and ulcer, cellulitis -Foot xray: SOFT TISSUE ULCERATION. STATUS POST TRANSMETATARSAL AMPUTATION. NO RADIOGRAPHIC EVIDENCE OF OSTEOMYELITIS PRESENTLY. -MRI L foot p -wound cx p Afebrile No leukocytosis -CXR: no acute disease lactic acidosis, mild JASMIN PAD HTN Dm2 c/w neuropathy PVD s/p L TMA chronic ischemic foot pain Plan: -Continue empiric IV Vancomycin and Cefepime #1 -f/u cx -Monitor CBC/CMP, temperature -wound care per podiatry -podiatry f/u Thank you for consulting [facility]. Will continue to follow along with you. Audrey Williamson M.D. December 30, 2019 16:10
--- NOTE | 2019-12-30 16:15 | History & Physical ---
History and Physical History & Physicial Dictated for Int Med Dr Dahl no [id number] Sukumar Rhodes MD December 30, 2019 16:15
--- NOTE | 2019-12-30 16:18 | NUR ---
NURSE NOTES: MD Marion ordered foot MRI for this patient; however MRI department notified primary nurse that patient couldn't able to stay still and refused the MRI; I called MD Marion office and spoke with Allicin; waiting order from MD Marion;
[2019-12-30] MEDS: Carvedilol 6.25mg Tab ORAL SCH (17:16)
[2019-12-30] MEDS: Phenytoin 100mg cap ORAL SCH (17:17)
--- NOTE | 2019-12-30 19:35 | NUR ---
NURSE NOTES: Received report from ELIESER Jones. AAO x 4, on room air. IV site intact. Pt c/o pain 8/10 on L foot. L Midfoot amputated and has ulcer. Dressing intact. Wound culture uncollected. Able to make needs known. No labored breathing. Bed locked, lowest position, alarm on, side rails up, call light within reach. Will continue to monitor.
--- NOTE | 2019-12-30 19:46 | NUR ---
HAND-OFF: Report given to ELIESER Marr.
[2019-12-30 20:00] VITALS: BP 141/86
[2019-12-30] MEDS ORDERED: Terazosin 1mg cap ORAL SCH (21:00)
[2019-12-30] MEDS: Cefepime HCl 2 GM in D5W 110 ML IV SCH (21:21)
[2019-12-30] MEDS: Heparin 5000 units/ml inj SUBQ SCH (21:27)
--- NOTE | 2019-12-30 21:45 | History and Physical Report ---
DATE OF ADMISSION: 12/30/2019 CHIEF COMPLAINT: The patient is a 69-year-old male who presents with a chief complaint of left foot pain. HISTORY OF PRESENT ILLNESS: The patient has history of diabetic foot ulcer of the left foot. The patient is status post transmetatarsal amputation of the left foot. The patient states he has a caregiver which has been helping him with dressing changes at home. The patient began to experience worsening left foot pain over the past few days. The patient states the pain is intolerable. The patient presented to [place] emergency room. The patient was admitted for left foot ulcer and left foot cellulitis to rule out osteomyelitis. REVIEW OF SYSTEMS: CONSTITUTIONAL: The patient denies weight loss or weight gain. The patient denies fevers or chills. HEENT: The patient denies ear or throat pain. The patient denies headache. CARDIOVASCULAR: The patient denies palpitations or chest pain. CHEST: The patient denies wheeze or shortness of breath. ABDOMINAL: The patient denies nausea, vomiting, diarrhea, constipation. GENITOURINARY: The patient denies dysuria or increased frequency of urination. NEUROMUSCULAR: The patient complains of left foot pain as above. The patient denies generalized weakness. The patient does have history of seizure disorder. PAST MEDICAL HISTORY: Significant for: 1. Type 2 diabetes. 2. Hypertension. 3. Seizure disorder. 4. Coronary artery disease. PAST SURGICAL HISTORY: Significant for: 1. Transmetatarsal amputation of the left foot in 2018. 2. Left femoral-popliteal bypass in November 2018. 3. Right inguinal hernia repair. CURRENT MEDICATIONS: 1. Aspirin 81 mg one tablet p.o. daily. 2. Atorvastatin 10 mg p.o. daily. 3. Carvedilol 6.25 mg p.o. twice daily. 4. Clopidogrel 75 mg p.o. daily. 5. Glipizide 5 mg p.o. twice daily. 6. [place] 5/325 mg one tablet p.o. q.6 hours p.r.n. 7. Isosorbide mononitrate 30 mg p.o. daily. 8. Metformin 1000 mg p.o. twice daily. 9. Nortriptyline 10 mg p.o. at bedtime. 10. Pantoprazole 40 mg p.o. daily. 11. Dilantin 200 mg p.o. twice daily. 12. Aldactone 25 mg p.o. daily. 13. Terazosin 5 mg p.o. at bedtime. 14. Ambien 5 mg p.o. at bedtime. ALLERGIES: No known drug allergies. SOCIAL HISTORY: The patient is single and lives alone. The patient does have a caregiver during the day. The patient admits to tobacco use of 1/2 pack per day. The patient denies alcohol use. PHYSICAL EXAMINATION: VITAL SIGNS: Temperature 97.2, respirations 20, pulse 84, blood pressure 142/77. GENERAL: The patient is well-developed and well-nourished male, in no apparent distress. HEENT: Eyes, pupils are equal and responsive to light and accommodation. Extraocular movements are intact. NECK: Supple without lymphadenopathy. CHEST: Lungs are clear to auscultation bilaterally without wheezes or rales. CARDIOVASCULAR: Regular rhythm and rate. S1 and S2 are normal without murmurs, rubs, or gallops. ABDOMEN: Soft, nontender, and nondistended. Positive bowel sounds. No evidence of hepatosplenomegaly. Currently, no rebound or guarding noted. EXTREMITIES: Presence of serosanguineous discharge from the left foot. The left foot is bandaged. Otherwise extremities without clubbing, cyanosis, or edema. RECTAL/GENITAL: Refused. NEUROLOGIC: Cranial nerves II through XII are grossly intact without focal deficits. Motor strength is 5/5 5/5 bilaterally. Deep tendon reflexes are 2+ plantar. LABORATORY AND DIAGNOSTIC DATA: WBC 6.6, hemoglobin 11.6, hematocrit 38.6, platelets 260,000. Sodium 142, potassium 4.5, chloride 105, CO2 27, BUN 19, creatinine 1.2, glucose 152. Lactic acid 2.50. An x-ray of the left foot was reported as soft tissue ulceration however no evidence of osteomyelitis. ASSESSMENT: This is a 69-year-old male. 1. Left foot pain. 2. Left foot diabetic ulcer. 3. Diabetes type 2. 4. Hypertension. 5. Seizure disorder. 6. Coronary artery disease. TREATMENT: 1. Left foot diabetic ulcer/left foot pain. A podiatry consultation obtained with Dr. Marion. We will follow recommendations of Podiatry. The patient has been started empirically on vancomycin and cefepime. Wound culture is pending. 2. Diabetes type 2. NovoLog sliding scale has been instituted. 3. Hypertension. Continue Coreg as above. 4. Seizure disorder. Continue Dilantin as above. 5. Coronary artery disease. Continue isosorbide and Plavix as above. Sukumar Rhodes M.D. DR: Tee JOB#: [id number] CC:
--- NOTE | 2019-12-30 22:39 | NUR ---
NURSE NOTES: Wound culture collected and sent to the lab.
[2019-12-31] VITALS: BP 138/81
[2019-12-31] MEDS ORDERED: Vancomycin 1 GM in D5W 275 ML IV SCH (00:30)
[2019-12-31] MEDS: Vancomycin 1gm/D5W 275ml IVPB SCH ×4 (03:49→16:28)
[2019-12-31] MEDS: Morphine Sulfate 2mg/ml Inj(IV/IM USE ONLY) IVP PRN (03:56)
[2019-12-31 04:00] VITALS: BP 141/86
[2019-12-31] MEDS: NovoLOG Insulin Flexpen SUBQ SCH ×4 (05:54→20:37)
--- NOTE | 2019-12-31 06:08 | NUR ---
NURSE NOTES: Pain is not controlled well with morphine 2mg. Pt wants to increase dose. Left message Dr. Montgomery. Addendum: 12/31/19 at 0746 by SUNNY MENDOZA RN RN NURSE NOTES: Received order Morphine 4mg IV q4h prn severe pain.
[2019-12-31 06:17] LABS: BASOPHILS % (AUTO) 0.9 % (0.0-2.0); EOSINOPHILS % (AUTO) 0.9 % (0.0-3.0); HEMATOCRIT 31.1 % (42.0-52.0); HEMOGLOBIN 10.3 G/DL (14.2-18.0); LYMPHOCYTES % (AUTO) 26.9 % (20.0-45.0); MEAN CORPUSCULAR VOLUME 85 FL (80-99); MONOCYTES % (AUTO) 7.2 % (1.0-10.0); NEUTROPHILS % (AUTO) 64.2 % (45.0-75.0); PLATELET COUNT 238 K/UL (150-450); RED BLOOD COUNT 3.66 M/UL (4.70-6.10); RED CELL DISTRIBUTION WIDTH 13.3 % (11.6-14.8); WHITE BLOOD COUNT 6.5 K/UL (4.8-10.8)
[2019-12-31 06:57] LABS: ALBUMIN/GLOBULIN RATIO 0.9 (1.0-2.7); ALKALINE PHOSPHATASE 92 U/L (46-116); ANION GAP 8 mmol/L (5-15); ASPARTATE AMINO TRANSFERASE 13 U/L (15-37); BILIRUBIN,TOTAL 0.3 MG/DL (0.2-1.0); BLOOD UREA NITROGEN 15 mg/dL (7-18); CALCIUM 8.7 MG/DL (8.5-10.1); CARBON DIOXIDE 27 MMOL/L (21-32); CHLORIDE 104 MMOL/L (98-107); CREATININE 1.2 MG/DL (0.55-1.30); POTASSIUM 4.9 MMOL/L (3.5-5.1); SODIUM 139 MMOL/L (136-145)
--- NOTE | 2019-12-31 07:35 | NUR ---
NURSE NOTES: Received patient in bed awake. No SOB or acute distress. IV line intact. Wound dressing dry and intact. HOB elevated. Bed locked in lowest position. Call light within reach. Will continue plan of care.
--- NOTE | 2019-12-31 07:44 | NUR ---
HAND-OFF: Report given to ELIESER Rivera.
[2019-12-31 08:00] VITALS: BP 134/71
[2019-12-31 08:20] LABS: ALANINE AMINOTRANSFERASE 25 U/L (12-78)
[2019-12-31] MEDS: Morphine Sulfate 4mg/ml Inj (IV USE ONLY) IVP PRN ×4 (08:28→20:30)
[2019-12-31] MEDS: Carvedilol 6.25mg Tab ORAL SCH ×2 (08:29→18:35)
[2019-12-31] MEDS: Heparin 5000 units/ml inj SUBQ SCH ×2 (08:29→20:36)
[2019-12-31] MEDS: Aspirin EC 81mg tab ORAL SCH (08:30)
[2019-12-31] MEDS: Phenytoin 100mg cap ORAL SCH ×2 (08:30→18:36)
[2019-12-31] MEDS: Cefepime HCl 2 GM in D5W 110 ML IV SCH ×2 (08:31→20:32)
--- NOTE | 2019-12-31 11:26 | NUR ---
CASE MANAGEMENT:INITIAL REVIEW 69 YR OLD MALE BIBA FROM HOME CC;LOWER EXTREMITY INJURY SI;DIABETIC FOOT ULCER 97.2 104 20 142/77 96% ON RA BUN 19 BG 152 LAC ACID 2.50 WOUND CULTURE ~ RESULT PENDING FOOT X-RAY ~ SOFT TISSUE ULCERATION STATUS POST TRANSMETATARSAL AMPUTATION. NO RADIOGRAPHIC EVIDENCE OF OSTEOMYELITIS PRESENTLY CXR ~ NO ACUTE CARDIOPULMONARY DISEASE. IS;IV VANCOMYCIN ONCE IV LEVAQUIN ONCE ADMITTED TO MED SURG @ 1126 ON 12/30/19 MED SURG STATUS DCP;FROM HOME
--- NOTE | 2019-12-31 11:35 | NUR ---
*-* INSURANCE *-* ALL CLINICALS AND REVIEWS HAVE BEEN FAXED TO: [facility] (PROFESSIONAL) P:[phone] F: [phone] ( FAX CLINICALS HERE AND TO [employer]) & [employer] AUTH# [id number] NCM: HOSSEIN Saab P:[phone] F:[phone] (FAX CLINICALS)
[2019-12-31 12:00] VITALS: BP 142/81
[2019-12-31] MEDS ORDERED: LORazepam Inj 2mg/ml 1ml IV SCH (13:30)
--- NOTE | 2019-12-31 15:11 | NUR ---
MRI LEFT FOOT COMPLETED
--- NOTE | 2019-12-31 15:18 | Pulmonology Progress Note ---
Subjective Interval Events: doing better Constitutional: Reports: no symptoms Allergies: Coded Allergies: No Known Allergies (Unverified , 05/07/14) Objective Last 24 Hour Vital Signs Date Time Temp Pulse Resp B/P (MAP) Pulse Ox O2 Delivery O2 Flow Rate FiO2 12/31/19 12:00 98.1 85 20 142/81 (101) 93 12/31/19 09:00 Room Air 12/31/19 08:29 90 134/71 12/31/19 08:00 95.7 90 20 134/71 (92) 93 12/31/19 04:00 98.1 88 20 141/86 (104) 94 12/31/19 00:00 98.4 90 24 138/81 (100) 97 12/30/19 21:00 Room Air 12/30/19 20:00 98.1 86 20 141/86 (104) 97 12/30/19 19:25 98.1 12/30/19 17:16 82 138/79 12/30/19 16:00 98.1 82 17 138/79 (98) 98 Intake and Output 12/30/19 12/31/19 19:00 07:00 Intake Total 1040 ml 2000 ml Output Total 700 ml Balance 340 ml 2000 ml Intake Oral 1040 ml Other 2000 ml Output Urine Total 700 ml # Voids 1 10 General Appearance: WD/WN HEENT: normocephalic, atraumatic Respiratory: chest wall non-tender, lungs clear Cardiovascular: normal peripheral pulses, normal rate Abdomen: normal bowel sounds, soft, non tender Genitourinary: normal external genitalia Extremities: no clubbing Microbiology Date/Time Source Procedure Growth Status 12/30/19 22:30 Other Gram Stain - Final Resulted 12/30/19 22:30 Other Wound Culture Pending Resulted Laboratory Tests 12/31/19 05:10: White Blood Count 6.5, Red Blood Count 3.66L, Hemoglobin 10.3L, Hematocrit 31.1L , Mean Corpuscular Volume 85, Mean Corpuscular Hemoglobin 28.0, Mean Corpuscular Hemoglobin Concent 33.0, Red Cell Distribution Width 13.3, Platelet Count 238, Mean Platelet Volume 5.5L, Neutrophils (%) (Auto) 64.2, Lymphocytes ( %) (Auto) 26.9, Monocytes (%) (Auto) 7.2, Eosinophils (%) (Auto) 0.9, Basophils (%) (Auto) 0.9, Sodium Level 139, Potassium Level 4.9, Chloride Level 104, Carbon Dioxide Level 27, Anion Gap 8, Blood Urea Nitrogen 15, Creatinine 1.2, Estimat Glomerular Filtration Rate > 60, Glucose Level 168H, Calcium Level 8.7, Total Bilirubin 0.3, Aspartate Amino Transf (AST/SGOT) 13L, Alanine Aminotransferase (ALT/SGPT) 25, Alkaline Phosphatase 92, Total Protein 6.3L, Albumin 3.0L, Globulin 3.3, Albumin/Globulin Ratio 0.9L Current Medications Medications (Trade) Dose Ordered Sig/Mell Route PRN Reason Start Time Stop Time Status Last Admin Dose Admin Acetaminophen (Tylenol) 650 mg Q4H PRN ORAL fever 12/30/19 11:15 01/29/20 11:14 Acetaminophen/ Hydrocodone Bitart ([place] 10/325) 1 tab Q4H PRN ORAL For Pain 4-6 12/30/19 13:15 01/06/20 13:14 Albuterol/ Ipratropium (Albuterol/ Ipratropium) 3 ml EVERY 4 HOURS PRN HHN Shortness of Breath 12/30/19 11:15 01/04/20 11:14 Aspirin (Ecotrin) 81 mg DAILY ORAL 12/31/19 09:00 02/14/20 08:59 12/31/19 08:30 Atorvastatin Calcium (Lipitor) 20 mg BEDTIME ORAL 12/31/19 21:00 03/29/20 20:59 Carvedilol (Coreg) 6.25 mg BID ORAL 12/30/19 18:00 01/29/20 17:59 12/31/19 08:29 Cefepime HCl 2 gm/ Dextrose 110 ml @ 220 mls/hr EVERY 12 HOURS IV 12/30/19 21:00 01/06/20 20:59 12/31/19 08:31 Clopidogrel Bisulfate (Plavix) 75 mg DAILY ORAL 12/31/19 09:00 01/30/20 08:59 12/31/19 08:30 Dextrose (Dextrose 50%) 25 ml Q30M PRN IV Hypoglycemia 12/30/19 11:15 03/29/20 11:14 Dextrose (Dextrose 50%) 50 ml Q30M PRN IV Hypoglycemia 12/30/19 11:15 03/29/20 11:14 Heparin Sodium (Porcine) (Heparin 5000 units/ml) 5,000 units EVERY 12 HOURS SUBQ 12/30/19 21:00 02/13/20 20:59 12/31/19 08:29 Insulin Aspart (NovoLOG) BEFORE MEALS AND HS SUBQ 12/30/19 11:30 03/29/20 11:29 12/31/19 12:07 Morphine Sulfate (Morphine Sulfate) 4 mg Q4H PRN IVP For Pain 7-10 12/31/19 07:48 01/07/20 07:47 12/31/19 12:33 Nitroglycerin (Ntg) 0.4 mg Q 5 MINS PRN SL . PRN CHEST PAIN 12/30/19 11:15 01/29/20 11:14 Ondansetron HCl (Zofran) 4 mg Q6H PRN IVP Nausea & Vomiting 12/30/19 11:15 01/29/20 11:14 Phenytoin (Dilantin) 200 mg TWICE A DAY ORAL 12/30/19 18:00 01/29/20 17:59 12/31/19 08:30 Polyethylene Glycol (Miralax) 17 gm DAILYPRN PRN ORAL Constipation 12/30/19 11:15 01/29/20 11:14 Temazepam (Restoril) 15 mg HSPRN PRN ORAL Insomnia 12/30/19 11:15 01/06/20 11:14 12/30/19 22:08 Terazosin HCl (Hytrin) 5 mg BEDTIME ORAL 12/31/19 21:00 01/29/20 20:59 Vancomycin HCl (Vanco pharmacy to dose) 1 ea DAILY PRN MISC . 12/31/19 11:00 01/30/20 10:59 Vancomycin HCl 1 gm/Dextrose 275 ml @ 183.708 mls/hr Q12H IVPB 12/31/19 03:00 01/05/20 02:59 12/31/19 03:49 Assessment/Plan Problems: (1) Diabetic foot ulcer (2) Cellulitis (3) CAD (coronary artery disease) (4) PVD (peripheral vascular disease) (5) History of CVA (cerebrovascular accident) (6) Epileptic seizure, generalized (7) Diabetes mellitus Assessment/Plan MRI ordered to rule out osteomyelitis Podiatry and ID recommendations appreciated wound culture iv abx pain management sliding scale diabetic diet symptomatic treatment. Herson Montgomery MD December 31, 2019 15:18
[2019-12-31 16:00] VITALS: BP 130/86
--- NOTE | 2019-12-31 16:53 | Diagnostic Imaging Report ---
Indication: Left foot wound Technique: Sagittal, axial, and coronal T1 FSE and FSE STIR images obtained of the left foot Comparison: Plain radiograph as described yesterday. No comparison MRI Findings: There is image degradation on several sequences due to motion artifact. A marker arrington the site of a skin ulcer in the inferolateral lateral left foot region. Patient is status post transmetatarsal amputation. There is susceptibility artifact obscuring the distal aspect of the fifth metatarsal stump. This results from a cerclage wire in this area demonstrated on the recent radiograph. There is questionable suggestion of some increased STIR signal and decreased T1 signal in the distal most visualized portion of the fifth metatarsal stump. No other signal abnormalities to suggest acute osteomyelitis are demonstrated. There is a well-circumscribed lesion of the calcaneus, which demonstrates heterogeneous high T1 and high STIR central signal and a peripheral dark rim. No corresponding abnormality is seen on the recent plain radiograph. Another similar-appearing lesion is seen in the anterior talus. This is slightly unusual in that the rib demonstrates high STIR signal. There is some edema of the plantar musculotendinous compartment. There is some edema of the subcutaneous fat as well. No well-circumscribed fluid collections to suggest abscess are demonstrated. Fluid is seen along several of the flexor tendon sheaths. Impression: Equivocal increased STIR and decreased T1 signal in the distal fifth metatarsal stump. If real could indicate acute osteomyelitis, but could also be artifactual due to susceptibly artifact from cerclage wires in the area. No other evidence of acute osteomyelitis. 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 This is nonspecific, could indicate cellulitis or could be edema due to vasogenic/hemodynamic abnormalities Nonspecific fluid along multiple flexor tendon sheaths
--- NOTE | 2019-12-31 17:07 | Infectious Diseases Prog Note ---
Assessment/Plan Assessment/Plan Assessment: L foot pain and ulcer, cellulitis -Foot xray: SOFT TISSUE ULCERATION. STATUS POST TRANSMETATARSAL AMPUTATION. NO RADIOGRAPHIC EVIDENCE OF OSTEOMYELITIS PRESENTLY. -MRI L foot p -wound cx p Afebrile No leukocytosis -CXR: no acute disease lactic acidosis, mild JASMIN PAD HTN Dm2 c/w neuropathy PVD s/p L TMA chronic ischemic foot pain Plan: -Continue empiric IV Vancomycin and Cefepime #2 -f/u wound cx -12/29 SP Levaquin x1 -f/u cx -Monitor CBC/CMP, temperature -wound care per podiatry -podiatry f/u -f/u MRI Thank you for consulting [facility]. Will continue to follow along with you. Subjective Allergies: Coded Allergies: No Known Allergies (Unverified , 05/07/14) Subjective afebrile no leukocytosis MRI done today Objective Vital Signs Last 24 Hour Vital Signs Date Time Temp Pulse Resp B/P (MAP) Pulse Ox O2 Delivery O2 Flow Rate FiO2 12/31/19 16:00 98.1 78 19 130/86 (101) 96 12/31/19 12:00 98.1 85 20 142/81 (101) 93 12/31/19 09:00 Room Air 12/31/19 08:29 90 134/71 12/31/19 08:00 95.7 90 20 134/71 (92) 93 12/31/19 04:00 98.1 88 20 141/86 (104) 94 12/31/19 00:00 98.4 90 24 138/81 (100) 97 12/30/19 21:00 Room Air 12/30/19 20:00 98.1 86 20 141/86 (104) 97 12/30/19 19:25 98.1 12/30/19 17:16 82 138/79 Height (Feet): 6 Height (Inches): 1.00 Weight (Pounds): 210 Objective General Appearance: alert, non-toxic Eyes: bilateral eye normal inspection, bilateral eye PERRL ENT: hearing grossly normal, normal pharynx, no angioedema, normal voice Neck: full range of motion Respiratory: chest non-tender, lungs clear, normal breath sounds, speaking full sentences Cardiovascular regular rate, rhythm, no edema Gastrointestinal: normal bowel sounds, non tender, soft, non-distended, no guarding, no rebound Musculoskeletal: other - Left foot status post partial amputation diffuse redness and swelling with tenderness to palpation mid lateral ulceration w/ eschar, no drainage. Microbiology Date/Time Source Procedure Growth Status 12/30/19 22:30 Other Gram Stain - Final Resulted 12/30/19 22:30 Other Wound Culture Pending Resulted Laboratory Tests Test 12/31/19 05:10 White Blood Count 6.5 K/UL (4.8-10.8) Red Blood Count 3.66 M/UL (4.70-6.10) L Hemoglobin 10.3 G/DL (14.2-18.0) L Hematocrit 31.1 % (42.0-52.0) L Mean Corpuscular Volume 85 FL (80-99) Mean Corpuscular Hemoglobin 28.0 PG (27.0-31.0) Mean Corpuscular Hemoglobin Concent 33.0 G/DL (32.0-36.0) Red Cell Distribution Width 13.3 % (11.6-14.8) Platelet Count 238 K/UL (150-450) Mean Platelet Volume 5.5 FL (6.5-10.1) L Neutrophils (%) (Auto) 64.2 % (45.0-75.0) Lymphocytes (%) (Auto) 26.9 % (20.0-45.0) Monocytes (%) (Auto) 7.2 % (1.0-10.0) Eosinophils (%) (Auto) 0.9 % (0.0-3.0) Basophils (%) (Auto) 0.9 % (0.0-2.0) Sodium Level 139 MMOL/L (136-145) Potassium Level 4.9 MMOL/L (3.5-5.1) Chloride Level 104 MMOL/L (98-107) Carbon Dioxide Level 27 MMOL/L (21-32) Anion Gap 8 mmol/L (5-15) Blood Urea Nitrogen 15 mg/dL (7-18) Creatinine 1.2 MG/DL (0.55-1.30) Estimat Glomerular Filtration Rate > 60 mL/min (>60) Glucose Level 168 MG/DL (74-106) H Calcium Level 8.7 MG/DL (8.5-10.1) Total Bilirubin 0.3 MG/DL (0.2-1.0) Aspartate Amino Transf (AST/SGOT) 13 U/L (15-37) L Alanine Aminotransferase (ALT/SGPT) 25 U/L (12-78) Alkaline Phosphatase 92 U/L (46-116) Total Protein 6.3 G/DL (6.4-8.2) L Albumin 3.0 G/DL (3.4-5.0) L Globulin 3.3 g/dL Albumin/Globulin Ratio 0.9 (1.0-2.7) L Current Medications Medications (Trade) Dose Ordered Sig/Mell Route PRN Reason Start Time Stop Time Status Last Admin Dose Admin Acetaminophen (Tylenol) 650 mg Q4H PRN ORAL fever 12/30/19 11:15 01/29/20 11:14 Acetaminophen/ Hydrocodone Bitart ([place] 10/325) 1 tab Q4H PRN ORAL For Pain 4-6 12/30/19 13:15 01/06/20 13:14 Albuterol/ Ipratropium (Albuterol/ Ipratropium) 3 ml EVERY 4 HOURS PRN HHN Shortness of Breath 12/30/19 11:15 01/04/20 11:14 Aspirin (Ecotrin) 81 mg DAILY ORAL 12/31/19 09:00 02/14/20 08:59 12/31/19 08:30 Atorvastatin Calcium (Lipitor) 20 mg BEDTIME ORAL 12/31/19 21:00 03/29/20 20:59 Carvedilol (Coreg) 6.25 mg BID ORAL 12/30/19 18:00 01/29/20 17:59 12/31/19 08:29 Cefepime HCl 2 gm/ Dextrose 110 ml @ 220 mls/hr EVERY 12 HOURS IV 12/30/19 21:00 01/06/20 20:59 12/31/19 08:31 Clopidogrel Bisulfate (Plavix) 75 mg DAILY ORAL 12/31/19 09:00 01/30/20 08:59 12/31/19 08:30 Dextrose (Dextrose 50%) 25 ml Q30M PRN IV Hypoglycemia 12/30/19 11:15 03/29/20 11:14 Dextrose (Dextrose 50%) 50 ml Q30M PRN IV Hypoglycemia 12/30/19 11:15 03/29/20 11:14 Heparin Sodium (Porcine) (Heparin 5000 units/ml) 5,000 units EVERY 12 HOURS SUBQ 12/30/19 21:00 02/13/20 20:59 12/31/19 08:29 Insulin Aspart (NovoLOG) BEFORE MEALS AND HS SUBQ 12/30/19 11:30 03/29/20 11:29 12/31/19 12:07 Morphine Sulfate (Morphine Sulfate) 4 mg Q4H PRN IVP For Pain 7-10 12/31/19 07:48 01/07/20 07:47 12/31/19 16:28 Nitroglycerin (Ntg) 0.4 mg Q 5 MINS PRN SL . PRN CHEST PAIN 12/30/19 11:15 01/29/20 11:14 Ondansetron HCl (Zofran) 4 mg Q6H PRN IVP Nausea & Vomiting 12/30/19 11:15 01/29/20 11:14 Phenytoin (Dilantin) 200 mg TWICE A DAY ORAL 12/30/19 18:00 01/29/20 17:59 12/31/19 08:30 Polyethylene Glycol (Miralax) 17 gm DAILYPRN PRN ORAL Constipation 12/30/19 11:15 01/29/20 11:14 Temazepam (Restoril) 15 mg HSPRN PRN ORAL Insomnia 12/30/19 11:15 01/06/20 11:14 12/30/19 22:08 Terazosin HCl (Hytrin) 5 mg BEDTIME ORAL 12/31/19 21:00 01/29/20 20:59 Vancomycin HCl (Vanco pharmacy to dose) 1 ea DAILY PRN MISC . 12/31/19 11:00 01/30/20 10:59 Vancomycin HCl 1 gm/Dextrose 275 ml @ 183.708 mls/hr Q12H IVPB 12/31/19 03:00 01/05/20 02:59 12/31/19 16:28 Audrey Williamson M.D. December 31, 2019 17:07
--- NOTE | 2019-12-31 18:59 | Internal Med Progress Note ---
Subjective Physician Name Luis Dahl Attending Physician Luis Dahl MD Current Medications Medications (Trade) Dose Ordered Sig/Mell Route PRN Reason Start Time Stop Time Status Last Admin Dose Admin Acetaminophen (Tylenol) 650 mg Q4H PRN ORAL fever 12/30/19 11:15 01/29/20 11:14 Acetaminophen/ Hydrocodone Bitart ([place] 10/325) 1 tab Q4H PRN ORAL For Pain 4-6 12/30/19 13:15 01/06/20 13:14 Albuterol/ Ipratropium (Albuterol/ Ipratropium) 3 ml EVERY 4 HOURS PRN HHN Shortness of Breath 12/30/19 11:15 01/04/20 11:14 Aspirin (Ecotrin) 81 mg DAILY ORAL 12/31/19 09:00 02/14/20 08:59 12/31/19 08:30 Atorvastatin Calcium (Lipitor) 20 mg BEDTIME ORAL 12/31/19 21:00 03/29/20 20:59 Carvedilol (Coreg) 6.25 mg BID ORAL 12/30/19 18:00 01/29/20 17:59 12/31/19 18:35 Cefepime HCl 2 gm/ Dextrose 110 ml @ 220 mls/hr EVERY 12 HOURS IV 12/30/19 21:00 01/06/20 20:59 12/31/19 08:31 Clopidogrel Bisulfate (Plavix) 75 mg DAILY ORAL 12/31/19 09:00 01/30/20 08:59 12/31/19 08:30 Dextrose (Dextrose 50%) 25 ml Q30M PRN IV Hypoglycemia 12/30/19 11:15 03/29/20 11:14 Dextrose (Dextrose 50%) 50 ml Q30M PRN IV Hypoglycemia 12/30/19 11:15 03/29/20 11:14 Heparin Sodium (Porcine) (Heparin 5000 units/ml) 5,000 units EVERY 12 HOURS SUBQ 12/30/19 21:00 02/13/20 20:59 12/31/19 08:29 Insulin Aspart (NovoLOG) BEFORE MEALS AND HS SUBQ 12/30/19 11:30 03/29/20 11:29 12/31/19 17:04 Morphine Sulfate (Morphine Sulfate) 4 mg Q4H PRN IVP For Pain 7-10 12/31/19 07:48 01/07/20 07:47 12/31/19 16:28 Nitroglycerin (Ntg) 0.4 mg Q 5 MINS PRN SL . PRN CHEST PAIN 12/30/19 11:15 01/29/20 11:14 Ondansetron HCl (Zofran) 4 mg Q6H PRN IVP Nausea & Vomiting 12/30/19 11:15 01/29/20 11:14 Phenytoin (Dilantin) 200 mg TWICE A DAY ORAL 12/30/19 18:00 01/29/20 17:59 12/31/19 18:36 Polyethylene Glycol (Miralax) 17 gm DAILYPRN PRN ORAL Constipation 12/30/19 11:15 01/29/20 11:14 Temazepam (Restoril) 15 mg HSPRN PRN ORAL Insomnia 12/30/19 11:15 01/06/20 11:14 12/30/19 22:08 Terazosin HCl (Hytrin) 5 mg BEDTIME ORAL 12/31/19 21:00 01/29/20 20:59 Vancomycin HCl (Vanco pharmacy to dose) 1 ea DAILY PRN MISC . 12/31/19 11:00 01/30/20 10:59 Vancomycin HCl 1 gm/Dextrose 275 ml @ 183.708 mls/hr Q12H IVPB 12/31/19 03:00 01/05/20 02:59 12/31/19 16:28 Allergies: Coded Allergies: No Known Allergies (Unverified , 05/07/14) Objective Last Vital Signs Date Time Temp Pulse Resp B/P (MAP) Pulse Ox O2 Delivery O2 Flow Rate FiO2 12/31/19 18:35 78 130/86 12/31/19 16:00 98.1 19 96 12/31/19 09:00 Room Air Laboratory Tests Test 12/31/19 05:10 White Blood Count 6.5 K/UL (4.8-10.8) Red Blood Count 3.66 M/UL (4.70-6.10) L Hemoglobin 10.3 G/DL (14.2-18.0) L Hematocrit 31.1 % (42.0-52.0) L Mean Corpuscular Volume 85 FL (80-99) Mean Corpuscular Hemoglobin 28.0 PG (27.0-31.0) Mean Corpuscular Hemoglobin Concent 33.0 G/DL (32.0-36.0) Red Cell Distribution Width 13.3 % (11.6-14.8) Platelet Count 238 K/UL (150-450) Mean Platelet Volume 5.5 FL (6.5-10.1) L Neutrophils (%) (Auto) 64.2 % (45.0-75.0) Lymphocytes (%) (Auto) 26.9 % (20.0-45.0) Monocytes (%) (Auto) 7.2 % (1.0-10.0) Eosinophils (%) (Auto) 0.9 % (0.0-3.0) Basophils (%) (Auto) 0.9 % (0.0-2.0) Sodium Level 139 MMOL/L (136-145) Potassium Level 4.9 MMOL/L (3.5-5.1) Chloride Level 104 MMOL/L (98-107) Carbon Dioxide Level 27 MMOL/L (21-32) Anion Gap 8 mmol/L (5-15) Blood Urea Nitrogen 15 mg/dL (7-18) Creatinine 1.2 MG/DL (0.55-1.30) Estimat Glomerular Filtration Rate > 60 mL/min (>60) Glucose Level 168 MG/DL (74-106) H Calcium Level 8.7 MG/DL (8.5-10.1) Total Bilirubin 0.3 MG/DL (0.2-1.0) Aspartate Amino Transf (AST/SGOT) 13 U/L (15-37) L Alanine Aminotransferase (ALT/SGPT) 25 U/L (12-78) Alkaline Phosphatase 92 U/L (46-116) Total Protein 6.3 G/DL (6.4-8.2) L Albumin 3.0 G/DL (3.4-5.0) L Globulin 3.3 g/dL Albumin/Globulin Ratio 0.9 (1.0-2.7) L Microbiology Date/Time Source Procedure Growth Status 12/30/19 22:30 Other Gram Stain - Final Resulted 12/30/19 22:30 Other Wound Culture Pending Resulted Intake and Output 12/30/19 12/31/19 19:00 07:00 Intake Total 1040 ml 2000 ml Output Total 700 ml Balance 340 ml 2000 ml Intake Oral 1040 ml Other 2000 ml Output Urine Total 700 ml # Voids 1 10 Luis Dahl MD December 31, 2019 18:59
--- NOTE | 2019-12-31 19:40 | NUR ---
NURSE NOTES: Received report from ELIESER Rivera. AAO x 4, on room air. IV site intact. Pt c/o pain and tightness 8/10 on L foot. L Midfoot amputated and has ulcer. Dressing intact but pt wants to make kerlix loose on L foot. Able to make needs known. No labored breathing. Bed locked, lowest position, alarm on, side rails up, call light within reach. Will continue to monitor.
[2019-12-31 20:00] VITALS: BP 154/98
[2019-12-31] MEDS: Atorvastatin 20mg tab ORAL SCH (20:32)
--- NOTE | 2019-12-31 22:17 | Internal Med Progress Note ---
Subjective Physician Name Luis Dahl Attending Physician Luis Dahl MD Current Medications Medications (Trade) Dose Ordered Sig/Mell Route PRN Reason Start Time Stop Time Status Last Admin Dose Admin Acetaminophen (Tylenol) 650 mg Q4H PRN ORAL fever 12/30/19 11:15 01/29/20 11:14 Acetaminophen/ Hydrocodone Bitart ([place] 10/325) 1 tab Q4H PRN ORAL For Pain 4-6 12/30/19 13:15 01/06/20 13:14 Albuterol/ Ipratropium (Albuterol/ Ipratropium) 3 ml EVERY 4 HOURS PRN HHN Shortness of Breath 12/30/19 11:15 01/04/20 11:14 Aspirin (Ecotrin) 81 mg DAILY ORAL 12/31/19 09:00 02/14/20 08:59 12/31/19 08:30 Atorvastatin Calcium (Lipitor) 20 mg BEDTIME ORAL 12/31/19 21:00 03/29/20 20:59 12/31/19 20:32 Carvedilol (Coreg) 6.25 mg BID ORAL 12/30/19 18:00 01/29/20 17:59 12/31/19 18:35 Cefepime HCl 2 gm/ Dextrose 110 ml @ 220 mls/hr EVERY 12 HOURS IV 12/30/19 21:00 01/06/20 20:59 12/31/19 20:32 Clopidogrel Bisulfate (Plavix) 75 mg DAILY ORAL 12/31/19 09:00 01/30/20 08:59 12/31/19 08:30 Dextrose (Dextrose 50%) 25 ml Q30M PRN IV Hypoglycemia 12/30/19 11:15 03/29/20 11:14 Dextrose (Dextrose 50%) 50 ml Q30M PRN IV Hypoglycemia 12/30/19 11:15 03/29/20 11:14 Heparin Sodium (Porcine) (Heparin 5000 units/ml) 5,000 units EVERY 12 HOURS SUBQ 12/30/19 21:00 02/13/20 20:59 12/31/19 20:36 Insulin Aspart (NovoLOG) BEFORE MEALS AND HS SUBQ 12/30/19 11:30 03/29/20 11:29 12/31/19 20:37 Morphine Sulfate (Morphine Sulfate) 4 mg Q4H PRN IVP For Pain 7-10 12/31/19 07:48 01/07/20 07:47 12/31/19 16:28 Nitroglycerin (Ntg) 0.4 mg Q 5 MINS PRN SL . PRN CHEST PAIN 12/30/19 11:15 01/29/20 11:14 Ondansetron HCl (Zofran) 4 mg Q6H PRN IVP Nausea & Vomiting 12/30/19 11:15 01/29/20 11:14 Phenytoin (Dilantin) 200 mg TWICE A DAY ORAL 12/30/19 18:00 01/29/20 17:59 12/31/19 18:36 Polyethylene Glycol (Miralax) 17 gm DAILYPRN PRN ORAL Constipation 12/30/19 11:15 01/29/20 11:14 Temazepam (Restoril) 30 mg HSPRN PRN ORAL Insomnia 12/31/19 20:30 01/06/20 11:14 12/31/19 21:02 Terazosin HCl (Hytrin) 5 mg BEDTIME ORAL 12/31/19 21:00 01/29/20 20:59 12/31/19 20:32 Vancomycin HCl ([facility] pharmacy to dose) 1 ea DAILY PRN MISC . 12/31/19 11:00 01/30/20 10:59 Vancomycin HCl 1 gm/Dextrose 275 ml @ 183.708 mls/hr Q12H IVPB 12/31/19 03:00 01/05/20 02:59 12/31/19 16:28 Allergies: Coded Allergies: No Known Allergies (Unverified , 05/07/14) Subjective awake, alert, responsive, No CP or SOB, C/O left foot pain. Objective Last Vital Signs Date Time Temp Pulse Resp B/P (MAP) Pulse Ox O2 Delivery O2 Flow Rate FiO2 12/31/19 20:00 98.8 76 19 154/98 (116) 95 12/31/19 09:00 Room Air Laboratory Tests Test 12/31/19 05:10 White Blood Count 6.5 K/UL (4.8-10.8) Red Blood Count 3.66 M/UL (4.70-6.10) L Hemoglobin 10.3 G/DL (14.2-18.0) L Hematocrit 31.1 % (42.0-52.0) L Mean Corpuscular Volume 85 FL (80-99) Mean Corpuscular Hemoglobin 28.0 PG (27.0-31.0) Mean Corpuscular Hemoglobin Concent 33.0 G/DL (32.0-36.0) Red Cell Distribution Width 13.3 % (11.6-14.8) Platelet Count 238 K/UL (150-450) Mean Platelet Volume 5.5 FL (6.5-10.1) L Neutrophils (%) (Auto) 64.2 % (45.0-75.0) Lymphocytes (%) (Auto) 26.9 % (20.0-45.0) Monocytes (%) (Auto) 7.2 % (1.0-10.0) Eosinophils (%) (Auto) 0.9 % (0.0-3.0) Basophils (%) (Auto) 0.9 % (0.0-2.0) Sodium Level 139 MMOL/L (136-145) Potassium Level 4.9 MMOL/L (3.5-5.1) Chloride Level 104 MMOL/L (98-107) Carbon Dioxide Level 27 MMOL/L (21-32) Anion Gap 8 mmol/L (5-15) Blood Urea Nitrogen 15 mg/dL (7-18) Creatinine 1.2 MG/DL (0.55-1.30) Estimat Glomerular Filtration Rate > 60 mL/min (>60) Glucose Level 168 MG/DL (74-106) H Calcium Level 8.7 MG/DL (8.5-10.1) Total Bilirubin 0.3 MG/DL (0.2-1.0) Aspartate Amino Transf (AST/SGOT) 13 U/L (15-37) L Alanine Aminotransferase (ALT/SGPT) 25 U/L (12-78) Alkaline Phosphatase 92 U/L (46-116) Total Protein 6.3 G/DL (6.4-8.2) L Albumin 3.0 G/DL (3.4-5.0) L Globulin 3.3 g/dL Albumin/Globulin Ratio 0.9 (1.0-2.7) L Microbiology Date/Time Source Procedure Growth Status 12/30/19 22:30 Other Gram Stain - Final Resulted 12/30/19 22:30 Other Wound Culture Pending Resulted Intake and Output 12/30/19 12/31/19 18:59 06:59 Intake Total 1040 ml 2000 ml Output Total 700 ml Balance 340 ml 2000 ml Intake Oral 1040 ml Other 2000 ml Output Urine Total 700 ml # Voids 1 10 Objective General: No acute distress, awake and alert HEENT: NCAT, sclera anicteric, PERRL, EOMI. Neck: Supple, no significant jugular venous distention, Lungs: Good inspiratory effort, clear to auscultation bilaterally, no Wheeze or Rales. Heart: Regular rate and rhythm, normal S1/S2, no murmurs. Abdomen: soft, nontender, nondistended. Normoactive bowel sounds. / Rectal: Refused and deferred. Extremities: No Cyanosis , clubbing or edema. Left foot dressing. Neuro: A&O x 3, Able to move all extremities Skin: warm, no rashes or lesions Psych: Normal mood and affect Assessment/Plan Assessment/Plan ASSESSMENT: This is a 69-year-old male. 1. Chronic ischemic Left foot pain. 2. Left foot diabetic ulcer. 3. Diabetes type 2. 4. Hypertension. 5. Seizure disorder. 6. Coronary artery disease. 7. PVD / PAD s/p TMA. TREATMENT: 1. Left foot diabetic ulcer/left foot pain. A podiatry consultation obtained with Dr. Marion. We will follow recommendations of Podiatry. The patient has been started empirically on vancomycin and cefepime. Wound culture is pending. 2. Diabetes type 2. NovoLog sliding scale has been instituted. 3. Hypertension. Continue Coreg as above. 4. Seizure disorder. Continue Dilantin as above. 5. Coronary artery disease. Continue isosorbide and Plavix as above. DVT prophylaxis: Heparin SQ Code Status: Full code. F/U with labs and Cultures MRI left foot: Equivocal increased STIR and decreased T1 signal in the distal fifth metatarsal stump. If real could indicate acute osteomyelitis, but could also be artifactual due to susceptibly artifact from cerclage wires in the area. No other evidence of acute osteomyelitis. 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 This is nonspecific, could indicate cellulitis could be edema due to vasogenic/hemodynamic abnormalities Nonspecific fluid along multiple flexor tendon sheaths Luis Dahl MD December 31, 2019 22:17
[2020-01-01] VITALS: BP 140/79
[2020-01-01] MEDS: Vancomycin 1gm/D5W 275ml IVPB SCH ×4 (03:44→15:12)
[2020-01-01] MEDS: Morphine Sulfate 4mg/ml Inj (IV USE ONLY) IVP PRN ×4 (03:46→20:43)
[2020-01-01 03:51] VITALS: BP 142/72
[2020-01-01] MEDS: NovoLOG Insulin Flexpen SUBQ SCH ×4 (05:32→20:41)
--- NOTE | 2020-01-01 07:20 | Pulmonology Progress Note ---
Subjective Interval Events: doing better Allergies: Coded Allergies: No Known Allergies (Unverified , 05/07/14) Subjective remains afebrile, pulse ox stable on RA MRI L foot noted Objective Last 24 Hour Vital Signs Date Time Temp Pulse Resp B/P (MAP) Pulse Ox O2 Delivery O2 Flow Rate FiO2 01/01/20 03:51 97.7 78 20 142/72 (95) 92 01/01/20 00:00 98.2 83 20 140/79 (99) 94 12/31/19 21:00 Room Air 12/31/19 20:00 98.8 76 19 154/98 (116) 95 12/31/19 18:35 78 130/86 12/31/19 16:00 98.1 78 19 130/86 (101) 96 12/31/19 12:00 98.1 85 20 142/81 (101) 93 12/31/19 09:00 Room Air 12/31/19 08:29 90 134/71 12/31/19 08:00 95.7 90 20 134/71 (92) 93 Intake and Output 12/31/19 01/01/20 19:00 07:00 Intake Total 800 ml 500 ml Output Total 2400 ml 1000 ml Balance -1600 ml -500 ml Intake Oral 800 ml 500 ml Output Urine Total 2400 ml 1000 ml General Appearance: WD/WN, no acute distress HEENT: normocephalic, atraumatic Respiratory: chest wall non-tender, lungs clear Cardiovascular: normal peripheral pulses, normal rate Abdomen: normal bowel sounds, soft, non tender Genitourinary: normal external genitalia Extremities: other - L foot TMA; diffuse redness and swelling with tenderness to palpation mid lateral open ulcer with scant amount of discharge Neurologic: abnormal gait, alert Musculoskeletal: normal muscle bulk Microbiology Date/Time Source Procedure Growth Status 12/30/19 09:50 Blood Blood Culture - Preliminary NO GROWTH AFTER 24 HOURS Resulted 12/30/19 09:50 Blood Blood Culture - Preliminary NO GROWTH AFTER 24 HOURS Resulted 12/30/19 22:30 Other Gram Stain - Final Resulted 12/30/19 22:30 Wound Culture - Preliminary Diphtheroids Resulted Laboratory Tests 01/01/20 02:36: Lactic Acid Level 0.90, Vancomycin Level Trough 14.5H Current Medications Medications (Trade) Dose Ordered Sig/Mell Route PRN Reason Start Time Stop Time Status Last Admin Dose Admin Acetaminophen (Tylenol) 650 mg Q4H PRN ORAL fever 12/30/19 11:15 01/29/20 11:14 Acetaminophen/ Hydrocodone Bitart ([place] [address]) 1 tab Q4H PRN ORAL For Pain 4-6 12/30/19 13:15 01/06/20 13:14 Albuterol/ Ipratropium (Albuterol/ Ipratropium) 3 ml EVERY 4 HOURS PRN HHN Shortness of Breath 12/30/19 11:15 01/04/20 11:14 Aspirin (Ecotrin) 81 mg DAILY ORAL 12/31/19 09:00 02/14/20 08:59 12/31/19 08:30 Atorvastatin Calcium (Lipitor) 20 mg BEDTIME ORAL 12/31/19 21:00 03/29/20 20:59 12/31/19 20:32 Carvedilol (Coreg) 6.25 mg BID ORAL 12/30/19 18:00 01/29/20 17:59 12/31/19 18:35 Cefepime HCl 2 gm/ Dextrose 110 ml @ 220 mls/hr EVERY 12 HOURS IV 12/30/19 21:00 01/06/20 20:59 12/31/19 20:32 Clopidogrel Bisulfate (Plavix) 75 mg DAILY ORAL 12/31/19 09:00 01/30/20 08:59 12/31/19 08:30 Dextrose (Dextrose 50%) 25 ml Q30M PRN IV Hypoglycemia 12/30/19 11:15 03/29/20 11:14 Dextrose (Dextrose 50%) 50 ml Q30M PRN IV Hypoglycemia 12/30/19 11:15 03/29/20 11:14 Heparin Sodium (Porcine) (Heparin 5000 units/ml) 5,000 units EVERY 12 HOURS SUBQ 12/30/19 21:00 02/13/20 20:59 12/31/19 20:36 Insulin Aspart (NovoLOG) BEFORE MEALS AND HS SUBQ 12/30/19 11:30 03/29/20 11:29 01/01/20 05:32 Morphine Sulfate (Morphine Sulfate) 4 mg Q4H PRN IVP For Pain 7-10 12/31/19 07:48 01/07/20 07:47 12/31/19 20:30 Nitroglycerin (Ntg) 0.4 mg Q 5 MINS PRN SL . PRN CHEST PAIN 12/30/19 11:15 01/29/20 11:14 Ondansetron HCl (Zofran) 4 mg Q6H PRN IVP Nausea & Vomiting 12/30/19 11:15 01/29/20 11:14 Phenytoin (Dilantin) 200 mg TWICE A DAY ORAL 12/30/19 18:00 01/29/20 17:59 12/31/19 18:36 Polyethylene Glycol (Miralax) 17 gm DAILYPRN PRN ORAL Constipation 12/30/19 11:15 01/29/20 11:14 Temazepam (Restoril) 30 mg HSPRN PRN ORAL Insomnia 12/31/19 20:30 01/06/20 11:14 12/31/19 21:02 Terazosin HCl (Hytrin) 5 mg BEDTIME ORAL 12/31/19 21:00 01/29/20 20:59 12/31/19 20:32 Vancomycin HCl (Vanco pharmacy to dose) 1 ea DAILY PRN MISC . 12/31/19 11:00 01/30/20 10:59 Vancomycin HCl 1 gm/Dextrose 275 ml @ 183.708 mls/hr Q12H IVPB 12/31/19 03:00 01/05/20 02:59 01/01/20 03:44 Assessment/Plan Assessment/Plan ASSESSMENT Diabetic ischemic ulcer left foot PVD , status post TMA left foot DM with neuropathy HTN Lactic acidosis PLAN OF CARE MS floor abx as per ID WCX -> Diphteroids, -contamination from surrounding eric X-ray of the L foot no evidence of OM MRI L foot 12/30 Equivocal increased STIR and decreased T1 signal in the distal fifth metatarsal stump. If real could indicate acute osteomyelitis, but could also be artifactual due to susceptibly artifact from cerclage wires in the area. No other evidence of acute osteomyelitis. 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 This is nonspecific, could indicate cellulitis or could be edema due to vasogenic/hemodynamic abnormalities doubt acute OM, given no fevers, no leuk, will get inflamm markers, continue abx for now and fup with ID recs seen by technical services representative wound care as per podiatry recs CXR stable O2 HHN PRN DVT prophylaxis continue dual antiplatelet therapy and statin BP management with BB, remained stable BS management with SSI lactic acidosis likely secondary to metformin, on hold for now pain management as needed supportive care case discussed and evaluated by supervising physician Ira Maldonado NP January 01, 2020 07:20
--- NOTE | 2020-01-01 07:36 | NUR ---
HAND-OFF: Report given to ELIESER Roche.
--- NOTE | 2020-01-01 07:38 | NUR ---
NURSE NOTES: Report received from ELIESER Golden. Patient received awake in bed in a semi fowlers position, no SOB, alert and oriented x 4, verbal and able to make needs known, bed in lowest position with alarm on and breaks engaged, IV line on right hand patent and intact, will continue to monitor and proceed with plan of care, call light within reach at all times.
[2020-01-01 08:00] VITALS: BP 136/74
[2020-01-01] MEDS: Aspirin EC 81mg tab ORAL SCH (08:30)
[2020-01-01] MEDS: Phenytoin 100mg cap ORAL SCH ×2 (08:30→17:29)
[2020-01-01] MEDS: Carvedilol 6.25mg Tab ORAL SCH ×2 (08:30→17:28)
[2020-01-01] MEDS: Heparin 5000 units/ml inj SUBQ SCH ×2 (08:31→20:43)
[2020-01-01] MEDS: Cefepime HCl 2 GM in D5W 110 ML IV SCH ×2 (08:32→20:38)
[2020-01-01 12:00] VITALS: BP 130/64
--- NOTE | 2020-01-01 12:00 | Internal Med Progress Note ---
Subjective Date of Service: January 01, 2020 Physician Name Sukuamr Rhodes Attending Physician Luis Dahl MD Current Medications Medications (Trade) Dose Ordered Sig/Mell Route PRN Reason Start Time Stop Time Status Last Admin Dose Admin Acetaminophen (Tylenol) 650 mg Q4H PRN ORAL fever 12/30/19 11:15 01/29/20 11:14 Acetaminophen/ Hydrocodone Bitart ([place] 10/325) 1 tab Q4H PRN ORAL For Pain 4-6 12/30/19 13:15 01/06/20 13:14 Albuterol/ Ipratropium (Albuterol/ Ipratropium) 3 ml EVERY 4 HOURS PRN HHN Shortness of Breath 12/30/19 11:15 01/04/20 11:14 Aspirin (Ecotrin) 81 mg DAILY ORAL 12/31/19 09:00 02/14/20 08:59 01/01/20 08:30 Atorvastatin Calcium (Lipitor) 20 mg BEDTIME ORAL 12/31/19 21:00 03/29/20 20:59 12/31/19 20:32 Carvedilol (Coreg) 6.25 mg BID ORAL 12/30/19 18:00 01/29/20 17:59 01/01/20 08:30 Cefepime HCl 2 gm/ Dextrose 110 ml @ 220 mls/hr EVERY 12 HOURS IV 12/30/19 21:00 01/06/20 20:59 01/01/20 08:32 Clopidogrel Bisulfate (Plavix) 75 mg DAILY ORAL 12/31/19 09:00 01/30/20 08:59 01/01/20 08:29 Dextrose (Dextrose 50%) 25 ml Q30M PRN IV Hypoglycemia 12/30/19 11:15 03/29/20 11:14 Dextrose (Dextrose 50%) 50 ml Q30M PRN IV Hypoglycemia 12/30/19 11:15 03/29/20 11:14 Heparin Sodium (Porcine) (Heparin 5000 units/ml) 5,000 units EVERY 12 HOURS SUBQ 12/30/19 21:00 02/13/20 20:59 01/01/20 08:31 Insulin Aspart (NovoLOG) BEFORE MEALS AND HS SUBQ 12/30/19 11:30 03/29/20 11:29 01/01/20 11:44 Morphine Sulfate (Morphine Sulfate) 4 mg Q4H PRN IVP For Pain 7-10 12/31/19 07:48 01/07/20 07:47 01/01/20 08:31 Nitroglycerin (Ntg) 0.4 mg Q 5 MINS PRN SL . PRN CHEST PAIN 12/30/19 11:15 01/29/20 11:14 Ondansetron HCl (Zofran) 4 mg Q6H PRN IVP Nausea & Vomiting 12/30/19 11:15 01/29/20 11:14 Phenytoin (Dilantin) 200 mg TWICE A DAY ORAL 12/30/19 18:00 01/29/20 17:59 01/01/20 08:30 Polyethylene Glycol (Miralax) 17 gm DAILYPRN PRN ORAL Constipation 12/30/19 11:15 01/29/20 11:14 Temazepam (Restoril) 30 mg HSPRN PRN ORAL Insomnia 12/31/19 20:30 01/06/20 11:14 12/31/19 21:02 Terazosin HCl (Hytrin) 5 mg BEDTIME ORAL 12/31/19 21:00 01/29/20 20:59 12/31/19 20:32 Vancomycin HCl (Vanco pharmacy to dose) 1 ea DAILY PRN MISC . 12/31/19 11:00 01/30/20 10:59 Vancomycin HCl 1 gm/Dextrose 275 ml @ 183.708 mls/hr Q12H IVPB 12/31/19 03:00 01/05/20 02:59 01/01/20 03:44 Allergies: Coded Allergies: No Known Allergies (Unverified , 05/07/14) ROS Limited/Unobtainable: No Constitutional: Reports: no symptoms HEENT: Reports: no symptoms Cardiovascular: Reports: no symptoms Respiratory: Reports: no symptoms Gastrointestinal/Abdominal: Reports: no symptoms Genitourinary: Reports: no symptoms Neurologic/Psychiatric: Reports: no symptoms Subjective 69 YO M with history of left foot TMA admitted with left foot pain. Now left foot diabetic foot ulcer. Cover for Bautista Dahl Objective Last Vital Signs Date Time Temp Pulse Resp B/P (MAP) Pulse Ox O2 Delivery O2 Flow Rate FiO2 01/01/20 10:00 Room Air 01/01/20 08:30 84 136/74 01/01/20 08:00 98.0 20 94 Laboratory Tests Test 01/01/20 02:36 Lactic Acid Level 0.90 mmol/L (0.4-2.0) Vancomycin Level Trough 14.5 ug/mL (5.0-12.0) H Microbiology Date/Time Source Procedure Growth Status 12/30/19 09:50 Blood Blood Culture - Preliminary NO GROWTH AFTER 24 HOURS Resulted 12/30/19 09:50 Blood Blood Culture - Preliminary NO GROWTH AFTER 24 HOURS Resulted 12/30/19 22:30 Other Gram Stain - Final Resulted 12/30/19 22:30 Wound Culture - Preliminary Diphtheroids Resulted Intake and Output 12/31/19 01/01/20 19:00 07:00 Intake Total 800 ml 500 ml Output Total 2400 ml 1000 ml Balance -1600 ml -500 ml Intake Oral 800 ml 500 ml Output Urine Total 2400 ml 1000 ml CXR Patient : CEE POWER Referring Physician: Miguel Marion DPM ID Number: [id number] Service Date: 12/31/19 : 1950 Report Date: 12/31/19 Gender: M Accession No.: [id number] Location: 4E Procedure: MRI Left Foot WO Contrast Indication: Left foot wound Technique: Sagittal, axial, and coronal T1 FSE and FSE STIR images obtained of the left foot Comparison: Plain radiograph as described yesterday. No comparison MRI Findings: There is image degradation on several sequences due to motion artifact. A marker arrington the site of a skin ulcer in the inferolateral lateral left foot region. Patient is status post transmetatarsal amputation. There is susceptibility artifact obscuring the distal aspect of the fifth metatarsal stump. This results from a cerclage wire in this area demonstrated on the recent radiograph. There is questionable suggestion of some increased STIR signal and decreased T1 signal in the distal most visualized portion of the fifth metatarsal stump. No other signal abnormalities to suggest acute osteomyelitis are demonstrated. There is a well-circumscribed lesion of the calcaneus, which demonstrates heterogeneous high T1 and high STIR central signal and a peripheral dark rim. No corresponding abnormality is seen on the recent plain radiograph. Another similar-appearing lesion is seen in the anterior talus. This is slightly unusual in that the rib demonstrates high STIR signal. There is some edema of the plantar musculotendinous compartment. There is some edema of the subcutaneous fat as well. No well-circumscribed fluid collections to suggest abscess are demonstrated. Fluid is seen along several of the flexor tendon sheaths. Impression: Equivocal increased STIR and decreased T1 signal in the distal fifth metatarsal stump. If real could indicate acute osteomyelitis, but could also be artifactual due to susceptibly artifact from cerclage wires in the area. No other evidence of acute osteomyelitis. 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 This is nonspecific, could indicate cellulitis or could be edema due to vasogenic/hemodynamic abnormalities Nonspecific fluid along multiple flexor tendon sheaths Dictated By: Jorge Alexandra MD Electronically Signed By: Jorge Alexandra MD Signed Date/Time 12/31/19 4201 CC: Miguel Marion DPM; Luis Dahl MD Objective PHYSICAL EXAMINATION: GENERAL: The patient is well-developed and well-nourished male, in no apparent distress. HEENT: Eyes, pupils are equal and responsive to light and accommodation. Extraocular movements are intact. NECK: Supple without lymphadenopathy. CHEST: Lungs are clear to auscultation bilaterally without wheezes or rales. CARDIOVASCULAR: Regular rhythm and rate. S1 and S2 are normal without murmurs, rubs, or gallops. ABDOMEN: Soft, nontender, and nondistended. Positive bowel sounds. No evidence of hepatosplenomegaly. Currently, no rebound or guarding noted. EXTREMITIES: Presence of serosanguineous discharge from the left foot. The left foot is bandaged. Otherwise extremities without clubbing, cyanosis, or edema. RECTAL/GENITAL: Refused. NEUROLOGIC: Cranial nerves II through XII are grossly intact without focal deficits. Motor strength is 5/5 5/5 bilaterally. Deep tendon reflexes are 2+ plantar. Assessment/Plan Assessment/Plan ASSESSMENT: This is a 69-year-old male. 1. Left foot pain. 2. Left foot diabetic ulcer. 3. Diabetes type 2. 4. Hypertension. 5. Seizure disorder. 6. Coronary artery disease. TREATMENT: 1. Left foot diabetic ulcer/left foot pain. A podiatry consultation obtained with Dr. Marion. We will follow recommendations of Podiatry. The patient has been started empirically on vancomycin and cefepime. MRI= neg for osteomyelitis. 2. Diabetes type 2. NovoLog sliding scale has been instituted. 3. Hypertension. Continue Coreg as above. 4. Seizure disorder. Continue Dilantin as above. 5. Coronary artery disease. Continue isosorbide and Plavix as above. 6. Vascular surgery=Dr Candelario. Transfer to [facility] [place] for left leg angiogram. when bed available. Sukumar Rhodes MD January 01, 2020 12:00
[2020-01-01 16:00] VITALS: BP 159/91
--- NOTE | 2020-01-01 16:19 | NUR ---
PT Note PT nicholas completed, treatment initiated. Patient c/o severe pain on the left foot, very tender, limiting his functional mobility and gait. Patient can benefit from PT services to improve his strength and balance to improve his safety in mobility and giat. Addendum: 01/01/20 at 1619 by TONY RUIZ PT Amended: Links added.
--- NOTE | 2020-01-01 17:19 | Diagnostic Imaging Report ---
EXAM: US Duplex Bilateral Lower Extremities Veins CLINICAL HISTORY: PREOP TECHNIQUE: Real-time duplex ultrasound scan of the bilateral lower extremity veins integrating B-mode two-dimensional vascular structure, Doppler spectral analysis, color flow Doppler imaging and compression. COMPARISON: No relevant prior studies available. FINDINGS: Right deep veins: Unremarkable. No DVT in the right common femoral, femoral, proximal deep femoral or popliteal veins. The veins demonstrate normal color flow, are normally compressible, with normal phasic flow and/or augmentation response. Right superficial veins: Unremarkable. No thrombus in the visualized right great saphenous vein. Left deep veins: Unremarkable. No DVT in the left common femoral, femoral, proximal deep femoral or popliteal veins. The veins demonstrate normal color flow, are normally compressible, with normal phasic flow and/or augmentation response. Left superficial veins: Unremarkable. No thrombus in the visualized left great saphenous vein. Soft tissues: No acute findings. No popliteal cyst. IMPRESSION: No DVT.
--- NOTE | 2020-01-01 17:48 | Diagnostic Imaging Report ---
EXAM: US Duplex Bilateral Lower Extremities Arteries CLINICAL HISTORY: PREOP TECHNIQUE: Real-time duplex ultrasound scan of the bilateral lower extremity arteries integrating B-mode two-dimensional vascular structure, Doppler spectral analysis and color flow Doppler imaging. COMPARISON: No relevant prior studies available. 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 Impression. Bilaterally calcified vessels. Monophasic waveforms with decreased flow rates in the right lower extremity from the distal SFA distally. Monophasic waveforms with decreased flow rates in the left lower extremity from the mid SFA distally. Findings of substantial peripheral arterial disease in the bilateral lower extremities from the right distal SFA and left mid SFA into the feet representing sluggish flow and monophasic waveforms. Left peroneal artery demonstrates no visualized flow. IMPRESSION: 1. Study limited due to bandages obscuring portions of vasculature above. 2. Left peroneal artery nonvisualized, potentially occluded. 3. Findings a substantial peripheral arterial disease in the bilateral lower extremities from the right distal SFA and left mid SFA into the feet. 4. Bilateral distal sluggish arterial flow and monophasic waveforms. 5. If there is continued concern, consider CT arteriogram of the lower extremities.
--- NOTE | 2020-01-01 19:31 | NUR ---
HAND-OFF: Report given to ELIESER Allison.
[2020-01-01 20:00] VITALS: BP 144/96
--- NOTE | 2020-01-01 20:00 | NUR ---
NURSE NOTES: Patient received in bed, aox3-4, forgetful of place. Re-oriented quickly. C/o pain, will medicate as prescribed. No signs of visible distress except pain on left foot. left foot dressing c/d/i. Call light in reach, instructed to call for assistance, will continue to monitor.
[2020-01-01] MEDS: Atorvastatin 20mg tab ORAL SCH (20:39)
--- NOTE | 2020-01-01 22:05 | General Progress Note ---
Progress Note Progress Note Patient seen and examined Left TMA lateral stump wound necrosis Severe left foot rest pain Calcific multilevel arterial occlusive PAD 2+ femorals absent pop and pedal pulses DM Smoker Rec Abx per ID Will need selective left leg angiogram to assess for revascularization Antiplatelet and statin therapy Podiatry f/u d/w pt at length and nurse at bedside Conrado Candelario MD January 01, 2020 22:05
[2020-01-02] VITALS (7 sets, daily range): BP systolic 115–140; BP diastolic 71–91
[2020-01-02] MEDS: Vancomycin 1gm/D5W 275ml IVPB SCH ×4 (02:43→14:27)
[2020-01-02] MEDS: Morphine Sulfate 4mg/ml Inj (IV USE ONLY) IVP PRN ×3 (03:06→17:05)
--- NOTE | 2020-01-02 03:15 | NUR ---
NURSE NOTES: Dressing changed on left foot. Pain medication given for comfort.
[2020-01-02 05:48] LABS: BASOPHILS % (AUTO) 0.8 % (0.0-2.0); EOSINOPHILS % (AUTO) 1.8 % (0.0-3.0); HEMATOCRIT 35.1 % (42.0-52.0); HEMOGLOBIN 11.8 G/DL (14.2-18.0); LYMPHOCYTES % (AUTO) 26.8 % (20.0-45.0); MEAN CORPUSCULAR VOLUME 83 FL (80-99); MONOCYTES % (AUTO) 6.3 % (1.0-10.0); NEUTROPHILS % (AUTO) 64.3 % (45.0-75.0); PLATELET COUNT 271 K/UL (150-450); RED BLOOD COUNT 4.22 M/UL (4.70-6.10); WHITE BLOOD COUNT 5.8 K/UL (4.8-10.8)
[2020-01-02] MEDS: NovoLOG Insulin Flexpen SUBQ SCH ×4 (06:09→20:44)
[2020-01-02 06:44] LABS: ANION GAP 9 mmol/L (5-15); BLOOD UREA NITROGEN 11 mg/dL (7-18); CALCIUM 9.4 MG/DL (8.5-10.1); CARBON DIOXIDE 28 MMOL/L (21-32); CHLORIDE 99 MMOL/L (98-107); POTASSIUM 4.4 MMOL/L (3.5-5.1); SODIUM 136 MMOL/L (136-145)
--- NOTE | 2020-01-02 07:17 | NUR ---
HAND-OFF: Report given to Kaley MON.
--- NOTE | 2020-01-02 07:19 | NUR ---
NURSE NOTES: Report received from ELIESER Allison. Patient received awake in bed, no SOB, alert and oriented x 4 with forgetfulness, verbal and able to make needs known, bed in lowest position with alarm on and breaks engaged, IV line on right hand patent and intact, will continue to monitor and proceed with plan of care, call light within easy reach.
--- NOTE | 2020-01-02 07:36 | Pulmonology Progress Note ---
Subjective ROS Limited/Unobtainable: No Interval Events: doing better Allergies: Coded Allergies: No Known Allergies (Unverified , 05/07/14) Subjective remains afebrile, pulse ox stable on RA MRI L foot noted Objective Last 24 Hour Vital Signs Date Time Temp Pulse Resp B/P (MAP) Pulse Ox O2 Delivery O2 Flow Rate FiO2 01/02/20 04:00 98.1 91 18 120/84 (96) 98 01/02/20 00:00 97.7 88 18 129/72 (91) 99 01/01/20 21:00 Room Air 01/01/20 20:00 97.7 92 18 144/96 (112) 97 01/01/20 17:28 84 159/91 01/01/20 16:04 97.9 01/01/20 16:00 97.7 84 18 159/91 (113) 93 01/01/20 12:00 97.9 83 18 130/64 (86) 96 01/01/20 10:00 Room Air 01/01/20 08:30 84 136/74 01/01/20 08:00 98.0 84 20 136/74 (94) 94 Intake and Output 01/01/20 01/02/20 19:00 07:00 Intake Total 1487.416 ml 1185.000 ml Output Total 1500 ml Balance 1487.416 ml -315.000 ml Intake Oral 1120 ml 800 ml IV Total 367.416 ml 385.000 ml Output Urine Total 1500 ml # Voids 8 Objective General Appearance: WD/WN, no acute distress HEENT: normocephalic, atraumatic Respiratory: chest wall non-tender, lungs clear Cardiovascular: normal peripheral pulses, normal rate Abdomen: normal bowel sounds, soft, non tender Genitourinary: normal external genitalia Extremities: other - L foot TMA; diffuse redness and swelling with tenderness to palpation mid lateral open ulcer with scant amount of discharge Neurologic: abnormal gait, alert Musculoskeletal: normal muscle bulk Microbiology Date/Time Source Procedure Growth Status 12/30/19 09:50 Blood Blood Culture - Preliminary NO GROWTH AFTER 48 HOURS Resulted 12/30/19 09:50 Blood Blood Culture - Preliminary NO GROWTH AFTER 48 HOURS Resulted 12/30/19 22:30 Other Gram Stain - Final Complete 12/30/19 22:30 Wound Culture - Final Diphtheroids Complete Laboratory Tests 01/02/20 03:15: White Blood Count 5.8, Red Blood Count 4.22L, Hemoglobin 11.8L, Hematocrit 35.1L , Mean Corpuscular Volume 83, Mean Corpuscular Hemoglobin 27.9, Mean Corpuscular Hemoglobin Concent 33.6, Red Cell Distribution Width 13.0, Platelet Count 271, Mean Platelet Volume 5.3L, Neutrophils (%) (Auto) 64.3, Lymphocytes ( %) (Auto) 26.8, Monocytes (%) (Auto) 6.3, Eosinophils (%) (Auto) 1.8, Basophils (%) (Auto) 0.8, Erythrocyte Sedimentation Rate [Pending], Sodium Level 136, Potassium Level 4.4, Chloride Level 99, Carbon Dioxide Level 28, Anion Gap 9, Blood Urea Nitrogen 11, Creatinine 1.0, Estimat Glomerular Filtration Rate > 60 , Glucose Level 198H, Calcium Level 9.4, C-Reactive Protein, Quantitative 3.6H Current Medications Medications (Trade) Dose Ordered Sig/Mell Route PRN Reason Start Time Stop Time Status Last Admin Dose Admin Acetaminophen (Tylenol) 650 mg Q4H PRN ORAL fever 12/30/19 11:15 01/29/20 11:14 Acetaminophen/ Hydrocodone Bitart ([place] 10/325) 1 tab Q4H PRN ORAL For Pain 4-6 12/30/19 13:15 01/06/20 13:14 Albuterol/ Ipratropium (Albuterol/ Ipratropium) 3 ml EVERY 4 HOURS PRN HHN Shortness of Breath 12/30/19 11:15 01/04/20 11:14 Aspirin (Ecotrin) 81 mg DAILY ORAL 12/31/19 09:00 02/14/20 08:59 01/01/20 08:30 Atorvastatin Calcium (Lipitor) 20 mg BEDTIME ORAL 12/31/19 21:00 03/29/20 20:59 01/01/20 20:39 Carvedilol (Coreg) 6.25 mg BID ORAL 12/30/19 18:00 01/29/20 17:59 01/01/20 17:28 Cefepime HCl 2 gm/ Dextrose 110 ml @ 220 mls/hr EVERY 12 HOURS IV 12/30/19 21:00 01/06/20 20:59 01/01/20 20:38 Clopidogrel Bisulfate (Plavix) 75 mg DAILY ORAL 12/31/19 09:00 01/30/20 08:59 01/01/20 08:29 Dextrose (Dextrose 50%) 25 ml Q30M PRN IV Hypoglycemia 12/30/19 11:15 03/29/20 11:14 Dextrose (Dextrose 50%) 50 ml Q30M PRN IV Hypoglycemia 12/30/19 11:15 03/29/20 11:14 Heparin Sodium (Porcine) (Heparin 5000 units/ml) 5,000 units EVERY 12 HOURS SUBQ 12/30/19 21:00 02/13/20 20:59 01/01/20 20:43 Insulin Aspart (NovoLOG) BEFORE MEALS AND HS SUBQ 12/30/19 11:30 03/29/20 11:29 01/02/20 06:09 Morphine Sulfate (Morphine Sulfate) 4 mg Q4H PRN IVP For Pain 7-10 12/31/19 07:48 01/07/20 07:47 01/02/20 03:06 Nitroglycerin (Ntg) 0.4 mg Q 5 MINS PRN SL . PRN CHEST PAIN 12/30/19 11:15 01/29/20 11:14 Ondansetron HCl (Zofran) 4 mg Q6H PRN IVP Nausea & Vomiting 12/30/19 11:15 01/29/20 11:14 Phenytoin (Dilantin) 200 mg TWICE A DAY ORAL 12/30/19 18:00 01/29/20 17:59 01/01/20 17:29 Polyethylene Glycol (Miralax) 17 gm DAILYPRN PRN ORAL Constipation 12/30/19 11:15 01/29/20 11:14 Temazepam (Restoril) 30 mg HSPRN PRN ORAL Insomnia 12/31/19 20:30 01/06/20 11:14 12/31/19 21:02 Terazosin HCl (Hytrin) 5 mg BEDTIME ORAL 12/31/19 21:00 01/29/20 20:59 01/01/20 20:39 Vancomycin HCl (Vanco pharmacy to dose) 1 ea DAILY PRN MISC . 12/31/19 11:00 01/30/20 10:59 Vancomycin HCl 1 gm/Dextrose 275 ml @ 183.708 mls/hr Q12H IVPB 12/31/19 03:00 01/05/20 02:59 01/02/20 02:43 Assessment/Plan Assessment/Plan ASSESSMENT Diabetic ischemic ulcer left foot PVD , status post TMA left foot DM with neuropathy HTN Lactic acidosis PLAN OF CARE MS floor abx as per ID WCX -> Diphteroids, -contamination from surrounding eric X-ray of the L foot no evidence of OM MRI L foot 12/30 Equivocal increased STIR and decreased T1 signal in the distal fifth metatarsal stump. If real could indicate acute osteomyelitis, but could also be artifactual due to susceptibly artifact from cerclage wires in the area. No other evidence of acute osteomyelitis. 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 This is nonspecific, could indicate cellulitis or could be edema due to vasogenic/hemodynamic abnormalities doubt acute OM, given no fevers, no leuk, will get inflamm markers, continue abx for now and fup with ID recs seen by exploitation analyst wound care as per podiatry recs seen by vascular surgeon per vasc surgeon-> pt need selective left leg angiogram to assess for revascularization a/PLT and statin therapy CXR stable O2 HHN PRN DVT prophylaxis continue dual antiplatelet therapy and statin BP management with BB, remained stable BS management with SSI lactic acidosis likely secondary to metformin, on hold for now pain management as needed supportive care case discussed and evaluated by supervising physician Ira Maldonado NP January 02, 2020 07:36
[2020-01-02] MEDS: Aspirin EC 81mg tab ORAL SCH (09:14)
[2020-01-02] MEDS: Phenytoin 100mg cap ORAL SCH ×2 (09:22→17:04)
[2020-01-02] MEDS: Carvedilol 6.25mg Tab ORAL SCH ×2 (09:22→17:04)
[2020-01-02] MEDS: Heparin 5000 units/ml inj SUBQ SCH ×2 (09:23→20:26)
[2020-01-02] MEDS: Cefepime HCl 2 GM in D5W 110 ML IV SCH ×2 (09:25→20:27)
--- NOTE | 2020-01-02 14:08 | Internal Med Progress Note ---
Subjective Date of Service: January 02, 2020 Physician Name Sukumar Rhodes Attending Physician Luis Dahl MD Current Medications Medications (Trade) Dose Ordered Sig/Mell Route PRN Reason Start Time Stop Time Status Last Admin Dose Admin Acetaminophen (Tylenol) 650 mg Q4H PRN ORAL fever 12/30/19 11:15 01/29/20 11:14 Acetaminophen/ Hydrocodone Bitart ([place] 10/325) 1 tab Q4H PRN ORAL For Pain 4-6 12/30/19 13:15 01/06/20 13:14 Albuterol/ Ipratropium (Albuterol/ Ipratropium) 3 ml EVERY 4 HOURS PRN HHN Shortness of Breath 12/30/19 11:15 01/04/20 11:14 Aspirin (Ecotrin) 81 mg DAILY ORAL 12/31/19 09:00 02/14/20 08:59 01/02/20 09:14 Atorvastatin Calcium (Lipitor) 20 mg BEDTIME ORAL 12/31/19 21:00 03/29/20 20:59 01/01/20 20:39 Carvedilol (Coreg) 6.25 mg BID ORAL 12/30/19 18:00 01/29/20 17:59 01/02/20 09:22 Cefepime HCl 2 gm/ Dextrose 110 ml @ 220 mls/hr EVERY 12 HOURS IV 12/30/19 21:00 01/06/20 20:59 01/02/20 09:25 Clopidogrel Bisulfate (Plavix) 75 mg DAILY ORAL 12/31/19 09:00 01/30/20 08:59 01/02/20 09:23 Dextrose (Dextrose 50%) 25 ml Q30M PRN IV Hypoglycemia 12/30/19 11:15 03/29/20 11:14 Dextrose (Dextrose 50%) 50 ml Q30M PRN IV Hypoglycemia 12/30/19 11:15 03/29/20 11:14 Heparin Sodium (Porcine) (Heparin 5000 units/ml) 5,000 units EVERY 12 HOURS SUBQ 12/30/19 21:00 02/13/20 20:59 01/02/20 09:23 Insulin Aspart (NovoLOG) BEFORE MEALS AND HS SUBQ 12/30/19 11:30 03/29/20 11:29 01/02/20 11:55 Morphine Sulfate (Morphine Sulfate) 4 mg Q4H PRN IVP For Pain 7-10 12/31/19 07:48 01/07/20 07:47 01/02/20 09:24 Nitroglycerin (Ntg) 0.4 mg Q 5 MINS PRN SL . PRN CHEST PAIN 12/30/19 11:15 01/29/20 11:14 Ondansetron HCl (Zofran) 4 mg Q6H PRN IVP Nausea & Vomiting 12/30/19 11:15 01/29/20 11:14 Phenytoin (Dilantin) 200 mg TWICE A DAY ORAL 12/30/19 18:00 01/29/20 17:59 01/02/20 09:22 Polyethylene Glycol (Miralax) 17 gm DAILYPRN PRN ORAL Constipation 12/30/19 11:15 01/29/20 11:14 Temazepam (Restoril) 30 mg HSPRN PRN ORAL Insomnia 12/31/19 20:30 01/06/20 11:14 12/31/19 21:02 Terazosin HCl (Hytrin) 5 mg BEDTIME ORAL 12/31/19 21:00 01/29/20 20:59 01/01/20 20:39 Vancomycin HCl (Vanco pharmacy to dose) 1 ea DAILY PRN MISC . 12/31/19 11:00 01/30/20 10:59 Vancomycin HCl 1 gm/Dextrose 275 ml @ 183.708 mls/hr Q12H IVPB 12/31/19 03:00 01/05/20 02:59 01/02/20 02:43 Allergies: Coded Allergies: No Known Allergies (Unverified , 05/07/14) ROS Limited/Unobtainable: No Constitutional: Reports: no symptoms HEENT: Reports: no symptoms Cardiovascular: Reports: no symptoms Respiratory: Reports: no symptoms Gastrointestinal/Abdominal: Reports: no symptoms Genitourinary: Reports: no symptoms Subjective 69 YO M with history of left foot TMA admitted with left foot pain. Now left foot diabetic foot ulcer. Cover for Bautista Dahl Objective Last Vital Signs Date Time Temp Pulse Resp B/P (MAP) Pulse Ox O2 Delivery O2 Flow Rate FiO2 01/02/20 12:09 97.5 92 19 128/83 (98) 94 01/02/20 09:00 Room Air Laboratory Tests Test 01/02/20 03:15 White Blood Count 5.8 K/UL (4.8-10.8) Red Blood Count 4.22 M/UL (4.70-6.10) L Hemoglobin 11.8 G/DL (14.2-18.0) L Hematocrit 35.1 % (42.0-52.0) L Mean Corpuscular Volume 83 FL (80-99) Mean Corpuscular Hemoglobin 27.9 PG (27.0-31.0) Mean Corpuscular Hemoglobin Concent 33.6 G/DL (32.0-36.0) Red Cell Distribution Width 13.0 % (11.6-14.8) Platelet Count 271 K/UL (150-450) Mean Platelet Volume 5.3 FL (6.5-10.1) L Neutrophils (%) (Auto) 64.3 % (45.0-75.0) Lymphocytes (%) (Auto) 26.8 % (20.0-45.0) Monocytes (%) (Auto) 6.3 % (1.0-10.0) Eosinophils (%) (Auto) 1.8 % (0.0-3.0) Basophils (%) (Auto) 0.8 % (0.0-2.0) Erythrocyte Sedimentation Rate 56 MM/HR (0-20) H Sodium Level 136 MMOL/L (136-145) Potassium Level 4.4 MMOL/L (3.5-5.1) Chloride Level 99 MMOL/L (98-107) Carbon Dioxide Level 28 MMOL/L (21-32) Anion Gap 9 mmol/L (5-15) Blood Urea Nitrogen 11 mg/dL (7-18) Creatinine 1.0 MG/DL (0.55-1.30) Estimat Glomerular Filtration Rate > 60 mL/min (>60) Glucose Level 198 MG/DL (74-106) H Calcium Level 9.4 MG/DL (8.5-10.1) C-Reactive Protein, Quantitative 3.6 mg/dL (0.00-0.90) H Microbiology Date/Time Source Procedure Growth Status 12/30/19 22:30 Other Gram Stain - Final Complete 12/30/19 22:30 Wound Culture - Final Diphtheroids Complete Intake and Output 01/01/20 01/02/20 19:00 07:00 Intake Total 1487.416 ml 1185.000 ml Output Total 1500 ml Balance 1487.416 ml -315.000 ml Intake Oral 1120 ml 800 ml IV Total 367.416 ml 385.000 ml Output Urine Total 1500 ml # Voids 8 Objective PHYSICAL EXAMINATION: GENERAL: The patient is well-developed and well-nourished male, in no apparent distress. HEENT: Eyes, pupils are equal and responsive to light and accommodation. Extraocular movements are intact. NECK: Supple without lymphadenopathy. CHEST: Lungs are clear to auscultation bilaterally without wheezes or rales. CARDIOVASCULAR: Regular rhythm and rate. S1 and S2 are normal without murmurs, rubs, or gallops. ABDOMEN: Soft, nontender, and nondistended. Positive bowel sounds. No evidence of hepatosplenomegaly. Currently, no rebound or guarding noted. EXTREMITIES: Presence of serosanguineous discharge from the left foot. The left foot is bandaged. Otherwise extremities without clubbing, cyanosis, or edema. RECTAL/GENITAL: Refused. NEUROLOGIC: Cranial nerves II through XII are grossly intact without focal deficits. Motor strength is 5/5 5/5 bilaterally. Deep tendon reflexes are 2+ plantar. Assessment/Plan Assessment/Plan ASSESSMENT: This is a 69-year-old male. 1. Left foot pain. 2. Left foot diabetic ulcer. 3. Diabetes type 2. 4. Hypertension. 5. Seizure disorder. 6. Coronary artery disease. TREATMENT: 1. Left foot diabetic ulcer/left foot pain. A podiatry consultation obtained with Dr. Marion. We will follow recommendations of Podiatry. The patient has been started empirically on vancomycin and cefepime. MRI= neg for osteomyelitis. 2. Diabetes type 2. NovoLog sliding scale has been instituted. 3. Hypertension. Continue Coreg as above. 4. Seizure disorder. Continue Dilantin as above. 5. Coronary artery disease. Continue isosorbide and Plavix as above. 6. Vascular surgery=Dr Candelario. Transfer to [facility] [place] for left leg angiogram. when bed available. Sukumar Rhodes MD January 02, 2020 14:08
--- NOTE | 2020-01-02 16:54 | Infectious Diseases Prog Note ---
Assessment/Plan Assessment/Plan Assessment: L foot pain and ulcer, cellulitis- ?OM (equivocal findings on MRI) -Foot xray: SOFT TISSUE ULCERATION. STATUS POST TRANSMETATARSAL AMPUTATION. NO RADIOGRAPHIC EVIDENCE OF OSTEOMYELITIS PRESENTLY. -MRI L foot: Equivocal increased STIR and decreased T1 signal in the distal fifth metatarsal stump. If real could indicate acute osteomyelitis, but could also be artifactual due to susceptibly artifact from cerclage wires in the area. No other evidence of acute osteomyelitis. 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 Considerable soft tissue edema. This is nonspecific, could indicate cellulitis or could be edema due to vasogenic/hemodynamic abnormalities. Nonspecific fluid along multiple flexor tendon sheaths -wound cx diphteroids -v. duplex: no DVT -a/ duplex: Study limited due to bandages obscuring portions of vasculature above. Left peroneal artery nonvisualized, potentially occluded. Findings a substantial peripheral arterial disease in the bilateral lower extremities from the right distal SFA and left mid SFA into the feet. Bilateral distal sluggish arterial flow and monophasic waveforms. Afebrile No leukocytosis -CXR: no acute disease lactic acidosis, mild JASMIN PAD HTN Dm2 c/w neuropathy PVD s/p L TMA chronic ischemic foot pain Plan: -Continue empiric IV Vancomycin and Cefepime #4 -12/29 SP Levaquin x1 -f/u cx -Monitor CBC/CMP, temperature -wound care per podiatry -podiatry f/u Thank you for consulting [facility]. Will continue to follow along with you. Subjective Allergies: Coded Allergies: No Known Allergies (Unverified , 05/07/14) Subjective afebrile no leukocytosis Objective Vital Signs Last 24 Hour Vital Signs Date Time Temp Pulse Resp B/P (MAP) Pulse Ox O2 Delivery O2 Flow Rate FiO2 01/02/20 16:00 97.4 79 19 139/91 (107) 94 01/02/20 12:09 97.5 92 19 128/83 (98) 94 01/02/20 10:22 98.1 01/02/20 09:22 97 115/90 01/02/20 09:00 Room Air 01/02/20 08:00 98.0 91 16 115/90 (98) 98 01/02/20 04:00 98.1 91 18 120/84 (96) 98 01/02/20 00:00 97.7 88 18 129/72 (91) 99 01/01/20 21:00 Room Air 01/01/20 20:00 97.7 92 18 144/96 (112) 97 01/01/20 17:28 84 159/91 Height (Feet): 6 Height (Inches): 1.00 Weight (Pounds): 210 Objective General Appearance: alert, non-toxic Eyes: bilateral eye normal inspection, bilateral eye PERRL ENT: hearing grossly normal, normal pharynx, no angioedema, normal voice Neck: full range of motion Respiratory: chest non-tender, lungs clear, normal breath sounds, speaking full sentences Cardiovascular regular rate, rhythm, no edema Gastrointestinal: normal bowel sounds, non tender, soft, non-distended, no guarding, no rebound Musculoskeletal: other - Left foot status post partial amputation diffuse redness and swelling with tenderness to palpation mid lateral ulceration w/ eschar, no drainage. Microbiology Date/Time Source Procedure Growth Status 12/30/19 22:30 Other Gram Stain - Final Complete 12/30/19 22:30 Wound Culture - Final Diphtheroids Complete Laboratory Tests Test 01/02/20 03:15 White Blood Count 5.8 K/UL (4.8-10.8) Red Blood Count 4.22 M/UL (4.70-6.10) L Hemoglobin 11.8 G/DL (14.2-18.0) L Hematocrit 35.1 % (42.0-52.0) L Mean Corpuscular Volume 83 FL (80-99) Mean Corpuscular Hemoglobin 27.9 PG (27.0-31.0) Mean Corpuscular Hemoglobin Concent 33.6 G/DL (32.0-36.0) Red Cell Distribution Width 13.0 % (11.6-14.8) Platelet Count 271 K/UL (150-450) Mean Platelet Volume 5.3 FL (6.5-10.1) L Neutrophils (%) (Auto) 64.3 % (45.0-75.0) Lymphocytes (%) (Auto) 26.8 % (20.0-45.0) Monocytes (%) (Auto) 6.3 % (1.0-10.0) Eosinophils (%) (Auto) 1.8 % (0.0-3.0) Basophils (%) (Auto) 0.8 % (0.0-2.0) Erythrocyte Sedimentation Rate 56 MM/HR (0-20) H Sodium Level 136 MMOL/L (136-145) Potassium Level 4.4 MMOL/L (3.5-5.1) Chloride Level 99 MMOL/L (98-107) Carbon Dioxide Level 28 MMOL/L (21-32) Anion Gap 9 mmol/L (5-15) Blood Urea Nitrogen 11 mg/dL (7-18) Creatinine 1.0 MG/DL (0.55-1.30) Estimat Glomerular Filtration Rate > 60 mL/min (>60) Glucose Level 198 MG/DL (74-106) H Calcium Level 9.4 MG/DL (8.5-10.1) C-Reactive Protein, Quantitative 3.6 mg/dL (0.00-0.90) H Current Medications Medications (Trade) Dose Ordered Sig/Mell Route PRN Reason Start Time Stop Time Status Last Admin Dose Admin Acetaminophen (Tylenol) 650 mg Q4H PRN ORAL fever 12/30/19 11:15 01/29/20 11:14 Acetaminophen/ Hydrocodone Bitart ([place] 10/325) 1 tab Q4H PRN ORAL For Pain 4-6 12/30/19 13:15 01/06/20 13:14 Albuterol/ Ipratropium (Albuterol/ Ipratropium) 3 ml EVERY 4 HOURS PRN HHN Shortness of Breath 12/30/19 11:15 01/04/20 11:14 Aspirin (Ecotrin) 81 mg DAILY ORAL 12/31/19 09:00 02/14/20 08:59 01/02/20 09:14 Atorvastatin Calcium (Lipitor) 20 mg BEDTIME ORAL 12/31/19 21:00 03/29/20 20:59 01/01/20 20:39 Carvedilol (Coreg) 6.25 mg BID ORAL 12/30/19 18:00 01/29/20 17:59 01/02/20 09:22 Cefepime HCl 2 gm/ Dextrose 110 ml @ 220 mls/hr EVERY 12 HOURS IV 12/30/19 21:00 01/06/20 20:59 01/02/20 09:25 Clopidogrel Bisulfate (Plavix) 75 mg DAILY ORAL 12/31/19 09:00 01/30/20 08:59 01/02/20 09:23 Dextrose (Dextrose 50%) 25 ml Q30M PRN IV Hypoglycemia 12/30/19 11:15 03/29/20 11:14 Dextrose (Dextrose 50%) 50 ml Q30M PRN IV Hypoglycemia 12/30/19 11:15 03/29/20 11:14 Heparin Sodium (Porcine) (Heparin 5000 units/ml) 5,000 units EVERY 12 HOURS SUBQ 12/30/19 21:00 02/13/20 20:59 01/02/20 09:23 Insulin Aspart (NovoLOG) BEFORE MEALS AND HS SUBQ 12/30/19 11:30 03/29/20 11:29 01/02/20 11:55 Morphine Sulfate (Morphine Sulfate) 4 mg Q4H PRN IVP For Pain 7-12/31/19 07:48 01/07/20 07:47 01/02/20 09:24 Nitroglycerin (Ntg) 0.4 mg Q 5 MINS PRN SL . PRN CHEST PAIN 12/30/19 11:15 01/29/20 11:14 Ondansetron HCl (Zofran) 4 mg Q6H PRN IVP Nausea & Vomiting 12/30/19 11:15 01/29/20 11:14 Phenytoin (Dilantin) 200 mg TWICE A DAY ORAL 12/30/19 18:00 01/29/20 17:59 01/02/20 09:22 Polyethylene Glycol (Miralax) 17 gm DAILYPRN PRN ORAL Constipation 12/30/19 11:15 01/29/20 11:14 Temazepam (Restoril) 30 mg HSPRN PRN ORAL Insomnia 12/31/19 20:30 01/06/20 11:14 12/31/19 21:02 Terazosin HCl (Hytrin) 5 mg BEDTIME ORAL 12/31/19 21:00 01/29/20 20:59 01/01/20 20:39 Vancomycin HCl (Vanco pharmacy to dose) 1 ea DAILY PRN MISC . 12/31/19 11:00 01/30/20 10:59 Vancomycin HCl 1 gm/Dextrose 275 ml @ 183.708 mls/hr Q12H IVPB 12/31/19 03:00 01/05/20 02:59 01/02/20 14:27 Audrey Williamson M.D. January 02, 2020 16:54
--- NOTE | 2020-01-02 19:16 | NUR ---
HAND-OFF: Report given to ELIESER Allison.
--- NOTE | 2020-01-02 20:00 | NUR ---
NURSE NOTES: Received pt. in bed, awake, alert and oriented. Denies any pain @ this time. Call light within reach.
[2020-01-02] MEDS: Atorvastatin 20mg tab ORAL SCH (20:25)
[2020-01-03] VITALS (7 sets, daily range): BP systolic 127–147; BP diastolic 71–88
[2020-01-03] MEDS: Vancomycin 1gm/D5W 275ml IVPB SCH ×4 (03:01→15:17)
[2020-01-03] MEDS: Morphine Sulfate 4mg/ml Inj (IV USE ONLY) IVP PRN ×3 (03:31→20:51)
--- NOTE | 2020-01-03 05:08 | NUR ---
NURSE NOTES: Wound dressing done on left foot, kept clean and dry, able to tolerate well. Due PRN meds given for pain.
[2020-01-03] MEDS: NovoLOG Insulin Flexpen SUBQ SCH ×4 (05:54→20:57)
[2020-01-03 07:06] LABS: ANION GAP 8 mmol/L (5-15); BLOOD UREA NITROGEN 13 mg/dL (7-18); CALCIUM 9.3 MG/DL (8.5-10.1); CARBON DIOXIDE 28 MMOL/L (21-32); CHLORIDE 99 MMOL/L (98-107); CREATININE 1.2 MG/DL (0.55-1.30); POTASSIUM 4.2 MMOL/L (3.5-5.1); SODIUM 135 MMOL/L (136-145)
[2020-01-03 07:15] LABS: BASOPHILS % (AUTO) 0.9 % (0.0-2.0); EOSINOPHILS % (AUTO) 1.4 % (0.0-3.0); HEMATOCRIT 33.1 % (42.0-52.0); HEMOGLOBIN 11.2 G/DL (14.2-18.0); LYMPHOCYTES % (AUTO) 28.2 % (20.0-45.0); MEAN CORPUSCULAR VOLUME 83 FL (80-99); MONOCYTES % (AUTO) 7.2 % (1.0-10.0); NEUTROPHILS % (AUTO) 62.3 % (45.0-75.0); PLATELET COUNT 263 K/UL (150-450); RED BLOOD COUNT 3.97 M/UL (4.70-6.10); RED CELL DISTRIBUTION WIDTH 12.8 % (11.6-14.8)
--- NOTE | 2020-01-03 07:29 | NUR ---
HAND-OFF: Report given to Radha MON.
--- NOTE | 2020-01-03 08:18 | NUR ---
NURSE NOTES: patient awake and alert,sitting up in bed and eating breakfast.Noted Left foot kerlix dressing clean and intact.No complaint of pain at this time.Call light within reach.
[2020-01-03] MEDS: Heparin 5000 units/ml inj SUBQ SCH ×2 (09:19→20:49)
[2020-01-03] MEDS: Carvedilol 6.25mg Tab ORAL SCH ×2 (09:19→18:27)
[2020-01-03] MEDS: Aspirin EC 81mg tab ORAL SCH (09:19)
[2020-01-03] MEDS: Phenytoin 100mg cap ORAL SCH ×2 (09:20→18:26)
[2020-01-03] MEDS: Cefepime HCl 2 GM in D5W 110 ML IV SCH ×2 (09:25→20:48)
--- NOTE | 2020-01-03 11:31 | Consultation ---
DATE OF CONSULTATION: 01/02/2020 VASCULAR SURGERY CONSULTATION CONSULTING PHYSICIAN: Conrado Candelario MD REFERRING PHYSICIANS: 1. Miguel Marion DPM, 2. Heather Swartz MD, 3. Geovanny Gibson MD REASON FOR CONSULTATION: Left foot necrosis and ulceration. HISTORY OF PRESENT ILLNESS: This is a 69-year-old male who is well known to our vascular service. Patient had previous lower extremity revascularization and foot amputation over a year ago, which had healed well. The patient now presented with lateral foot necrosis and ulceration, and rest pain. The patient has significant arterial occlusive disease. Vascular Surgery consulted for further evaluation. The patient continued to have rest pain and left foot pain. He has been noncompliant with medication and he has had smoking history. PAST MEDICAL HISTORY: As above, history of hypertension, arterial occlusive disease, diabetes mellitus, smoking history, noncompliance, previous lower extremity revascularization and foot amputation. MEDICATIONS: See attached MAR. ALLERGIES: No known drug allergies. SOCIAL HISTORY: He continues to smoke. Denies history of alcohol or drug use. FAMILY HISTORY: Unremarkable. SYSTEM REVIEW: CARDIOVASCULAR: No history of chest pain or palpitations. PULMONARY: No cough. No hemoptysis. GASTROINTESTINAL: No history of abdominal pain, constipation, or diarrhea. GENITOURINARY: No urinary symptoms, frequency, or hematuria. NEUROLOGIC: No history of strokes or seizures. PHYSICAL EXAMINATION: VITAL SIGNS: The patient is afebrile, temperature 97.7, heart rate 80, blood pressure 150/77, respiratory rate 16. The patient has has palpable radial pulses. No evidence of carotid bruits. LUNGS: Clear to auscultation. HEART: Regular rate and rhythm. ABDOMEN: Soft and nontender. EXTREMITIES: He has palpable femoral pulses. Absent popliteal and pedal pulses bilaterally. Left transmetatarsal amputation is 01:54 left lateral wound necrosis and ulceration. IMPRESSION: 1. Ischemic left foot necrosis and ulceration with significant arterial occlusive disease. 2. History of hypertension. 3. Diabetes. 4. Smoking history. 5. Noncompliance. PLAN AND RECOMMENDATION: 1. Medical optimization in progress. 2. We will schedule the patient for selective left leg angiography to assess for revascularization. 3. Continue antibiotics per ID service. 4. DVT and decubitus precaution. The above was discussed at length with the patient and the nurse at bedside. Conrado Candelario M.D. DR: BLAINE JOB#: [id number] CC: Conrado Candelario M.D.; Fax#: [phone] Bear STILL.[email or web address] ; FAX#: [phone] GEOVANNY GIBSON M.D.; FAX#: [phone] HEATHER SWARTZ M.D.; FAX#: [phone]
--- NOTE | 2020-01-03 11:59 | NUR ---
DISCHARGE PLANNING PATIENT HAS BEEN REFERRED TO [facility] P: [phone] F: [phone] EMAIL: [email or web address]
--- NOTE | 2020-01-03 12:18 | NUR ---
*-* INSURANCE *-* UPDATED CLINICALS HAVE BEEN FAXED TO: [facility] (PROFESSIONAL) P:[phone] F: [phone] ( FAX CLINICALS HERE AND TO [employer]) & [employer] AUTH# [id number] NCM: HOSSEIN Saab P:[phone] F:[phone] (FAX CLINICALS)
--- NOTE | 2020-01-03 12:32 | NUR ---
TOBACCO FLAVORER NOTE CALL RECEIVED FROM HAILY WITH DR GUILLERMO OFFICE [phone] INFORMED THIS TOBACCO FLAVORER PATIENT IS SCHEDULED FOR ANGIOGRAM AT [facility] ON 01/06/20 @ 1300 INFORMED HAILY REFERRAL FOR [facility] HAS BEEN SENT AND CURRENTLY AWAITING REPLY. CALL MADE TO [facility] [phone] / [phone], S/W JOSHUA. INFORMED THIS CM REFERRAL IS CURRENTLY BEING REVIEWED AND WILL FOLLOW UP WITH THIS CM AT APPROX 1400 PM WITH FURTHER INFORMATION RE ACCEPTANCE. JOSHUA INFORMED OF CALL FROM HAILY FROM DR GUILLERMO OFFICE IN RE TO SCHEDULED ANGIOGRAM ON 01/06/20. Addendum: 01/03/20 at 1625 by GIULIANA CURRY LVN LVN FOLLOW UP CALL [facility]. NO ANSWER AT TIME OF CALL. FATOUMATA LEFT REQUESTING CALL BACK.
--- NOTE | 2020-01-03 14:04 | Pulmonology Progress Note ---
Subjective ROS Limited/Unobtainable: No Interval Events: doing better Allergies: Coded Allergies: No Known Allergies (Unverified , 05/07/14) Objective Last 24 Hour Vital Signs Date Time Temp Pulse Resp B/P (MAP) Pulse Ox O2 Delivery O2 Flow Rate FiO2 01/03/20 12:54 97.2 82 18 135/83 (100) 95 01/03/20 09:47 Room Air 01/03/20 09:19 95 130/85 01/03/20 09:01 97.2 95 18 130/85 (100) 01/03/20 09:00 97.2 95 18 130/85 (100) 96 01/03/20 04:01 98.7 01/03/20 04:00 98.9 73 19 138/88 (105) 95 01/03/20 00:00 98.2 84 17 133/71 (91) 97 01/02/20 21:34 97.9 80 19 140/71 (94) 97 01/02/20 20:00 Room Air 01/02/20 20:00 97.9 80 19 140/71 (94) 97 01/02/20 17:04 79 139/91 01/02/20 16:00 97.4 79 19 139/91 (107) 94 Intake and Output 01/02/20 01/03/20 19:00 07:00 Intake Total 1707.416 ml 1285.000 ml Output Total 1200 ml 1100 ml Balance 507.416 ml 185.000 ml Intake Oral 1120 ml 900 ml IV Total 587.416 ml 385.000 ml Output Urine Total 1200 ml 1100 ml Stool Total 0 ml # Voids 8 5 General Appearance: WD/WN Cardiovascular: normal peripheral pulses, regular rhythm Abdomen: normal bowel sounds, soft, non tender Genitourinary: normal external genitalia Skin: no rash, no ulcers Laboratory Tests 01/03/20 06:25: White Blood Count 5.0, Red Blood Count 3.97L, Hemoglobin 11.2L, Hematocrit 33.1L , Mean Corpuscular Volume 83, Mean Corpuscular Hemoglobin 28.3, Mean Corpuscular Hemoglobin Concent 34.0, Red Cell Distribution Width 12.8, Platelet Count 263, Mean Platelet Volume 5.4L, Neutrophils (%) (Auto) 62.3, Lymphocytes ( %) (Auto) 28.2, Monocytes (%) (Auto) 7.2, Eosinophils (%) (Auto) 1.4, Basophils (%) (Auto) 0.9, Sodium Level 135L, Potassium Level 4.2, Chloride Level 99, Carbon Dioxide Level 28, Anion Gap 8, Blood Urea Nitrogen 13, Creatinine 1.2, Estimat Glomerular Filtration Rate > 60, Glucose Level 299#H, Calcium Level 9.3 Current Medications Medications (Trade) Dose Ordered Sig/Mell Route PRN Reason Start Time Stop Time Status Last Admin Dose Admin Acetaminophen (Tylenol) 650 mg Q4H PRN ORAL fever 12/30/19 11:15 01/29/20 11:14 Acetaminophen/ Hydrocodone Bitart ([place] 10/325) 1 tab Q4H PRN ORAL For Pain 4-6 12/30/19 13:15 01/06/20 13:14 Albuterol/ Ipratropium (Albuterol/ Ipratropium) 3 ml EVERY 4 HOURS PRN HHN Shortness of Breath 12/30/19 11:15 01/04/20 11:14 Aspirin (Ecotrin) 81 mg DAILY ORAL 12/31/19 09:00 02/14/20 08:59 01/03/20 09:19 Atorvastatin Calcium (Lipitor) 20 mg BEDTIME ORAL 12/31/19 21:00 03/29/20 20:59 01/02/20 20:25 Carvedilol (Coreg) 6.25 mg BID ORAL 12/30/19 18:00 01/29/20 17:59 01/03/20 09:19 Cefepime HCl 2 gm/ Dextrose 110 ml @ 220 mls/hr EVERY 12 HOURS IV 12/30/19 21:00 01/06/20 20:59 01/03/20 09:25 Clopidogrel Bisulfate (Plavix) 75 mg DAILY ORAL 12/31/19 09:00 01/30/20 08:59 01/03/20 09:20 Dextrose (Dextrose 50%) 25 ml Q30M PRN IV Hypoglycemia 12/30/19 11:15 03/29/20 11:14 Dextrose (Dextrose 50%) 50 ml Q30M PRN IV Hypoglycemia 12/30/19 11:15 03/29/20 11:14 Heparin Sodium (Porcine) (Heparin 5000 units/ml) 5,000 units EVERY 12 HOURS SUBQ 12/30/19 21:00 02/13/20 20:59 01/03/20 09:19 Insulin Aspart (NovoLOG) BEFORE MEALS AND HS SUBQ 12/30/19 11:30 03/29/20 11:29 01/03/20 12:47 Morphine Sulfate (Morphine Sulfate) 4 mg Q4H PRN IVP For Pain 7-10 12/31/19 07:48 01/07/20 07:47 01/03/20 09:29 Nitroglycerin (Ntg) 0.4 mg Q 5 MINS PRN SL . PRN CHEST PAIN 12/30/19 11:15 01/29/20 11:14 Ondansetron HCl (Zofran) 4 mg Q6H PRN IVP Nausea & Vomiting 12/30/19 11:15 01/29/20 11:14 Phenytoin (Dilantin) 200 mg TWICE A DAY ORAL 12/30/19 18:00 01/29/20 17:59 01/03/20 09:20 Polyethylene Glycol (Miralax) 17 gm DAILYPRN PRN ORAL Constipation 12/30/19 11:15 01/29/20 11:14 01/03/20 05:46 Temazepam (Restoril) 30 mg HSPRN PRN ORAL Insomnia 12/31/19 20:30 01/06/20 11:14 12/31/19 21:02 Terazosin HCl (Hytrin) 5 mg BEDTIME ORAL 12/31/19 21:00 01/29/20 20:59 01/02/20 20:25 Vancomycin HCl (Vanco pharmacy to dose) 1 ea DAILY PRN MISC . 12/31/19 11:00 01/30/20 10:59 Vancomycin HCl 1 gm/Dextrose 275 ml @ 183.708 mls/hr Q12H IVPB 12/31/19 03:00 01/05/20 02:59 01/03/20 03:01 Assessment/Plan Problems: (1) Diabetic foot ulcer (2) Cellulitis (3) CAD (coronary artery disease) (4) PVD (peripheral vascular disease) (5) History of CVA (cerebrovascular accident) (6) Epileptic seizure, generalized (7) Diabetes mellitus Assessment/Plan MRI: Equivocal increased STIR and decreased T1 signal in the distal fifth metatarsal stump. If real could indicate acute osteomyelitis, but could also be artifactual due to susceptibly artifact from cerclage wires in the area. Podiatry and ID recommendations appreciated wound culture iv abx pain management sliding scale diabetic diet symptomatic treatment. Herson Montgomery MD Jan 03, 2020 14:04
--- NOTE | 2020-01-03 16:26 | NUR ---
CASE MANAGEMENT:REVIEW SI;ISCHEMIC LEFT FOOT NECROSIS & ULCERATION. CELLULITIS. ARTERIAL OCCLUSIVE DISEASE. DM. 98.9 95 18 135/83 95% ON RA NA 135 BG 299 IS;VANCOMYCIN IV BID CEFEPIME IV BID COREG PO BID DILANTIN PO BID ASA PO QD MED SURG STATUS DCP;FROM HOME
--- NOTE | 2020-01-03 16:43 | NUR ---
FINE DINING SERVER NOTE FOLLOW UP CALL MADE TO [facility] @ [phone] S/W MONICA. SHE ADVISED THIS CM TO FOLLOW UP ON FRI FOR TRANSFER TO [facility] ON 01/06/20 FOR SCHEDULED ANGIOGRAM @ 1300 ON THAT DATE.
--- NOTE | 2020-01-03 18:00 | NUR ---
NURSE NOTES: Patient resting,bed alarm on,call light within reach..
--- NOTE | 2020-01-03 18:22 | Internal Med Progress Note ---
Subjective Date of Service: Jan 03, 2020 Physician Name Sukumar Rhodes Attending Physician Luis Dahl MD Current Medications Medications (Trade) Dose Ordered Sig/Mell Route PRN Reason Start Time Stop Time Status Last Admin Dose Admin Acetaminophen (Tylenol) 650 mg Q4H PRN ORAL fever 12/30/19 11:15 01/29/20 11:14 Acetaminophen/ Hydrocodone Bitart ([place] 10/325) 1 tab Q4H PRN ORAL For Pain 4-6 12/30/19 13:15 01/06/20 13:14 Albuterol/ Ipratropium (Albuterol/ Ipratropium) 3 ml EVERY 4 HOURS PRN HHN Shortness of Breath 12/30/19 11:15 01/04/20 11:14 Aspirin (Ecotrin) 81 mg DAILY ORAL 12/31/19 09:00 02/14/20 08:59 01/03/20 09:19 Atorvastatin Calcium (Lipitor) 20 mg BEDTIME ORAL 12/31/19 21:00 03/29/20 20:59 01/02/20 20:25 Carvedilol (Coreg) 6.25 mg BID ORAL 12/30/19 18:00 01/29/20 17:59 01/03/20 09:19 Cefepime HCl 2 gm/ Dextrose 110 ml @ 220 mls/hr EVERY 12 HOURS IV 12/30/19 21:00 01/06/20 20:59 01/03/20 09:25 Clopidogrel Bisulfate (Plavix) 75 mg DAILY ORAL 12/31/19 09:00 01/30/20 08:59 01/03/20 09:20 Dextrose (Dextrose 50%) 25 ml Q30M PRN IV Hypoglycemia 12/30/19 11:15 03/29/20 11:14 Dextrose (Dextrose 50%) 50 ml Q30M PRN IV Hypoglycemia 12/30/19 11:15 03/29/20 11:14 Heparin Sodium (Porcine) (Heparin 5000 units/ml) 5,000 units EVERY 12 HOURS SUBQ 12/30/19 21:00 02/13/20 20:59 01/03/20 09:19 Insulin Aspart (NovoLOG) BEFORE MEALS AND HS SUBQ 12/30/19 11:30 03/29/20 11:29 01/03/20 17:47 Morphine Sulfate (Morphine Sulfate) 4 mg Q4H PRN IVP For Pain 7-10 12/31/19 07:48 01/07/20 07:47 01/03/20 09:29 Nitroglycerin (Ntg) 0.4 mg Q 5 MINS PRN SL . PRN CHEST PAIN 12/30/19 11:15 01/29/20 11:14 Ondansetron HCl (Zofran) 4 mg Q6H PRN IVP Nausea & Vomiting 12/30/19 11:15 01/29/20 11:14 Phenytoin (Dilantin) 200 mg TWICE A DAY ORAL 12/30/19 18:00 01/29/20 17:59 01/03/20 09:20 Polyethylene Glycol (Miralax) 17 gm DAILYPRN PRN ORAL Constipation 12/30/19 11:15 01/29/20 11:14 01/03/20 05:46 Temazepam (Restoril) 30 mg HSPRN PRN ORAL Insomnia 12/31/19 20:30 01/06/20 11:14 12/31/19 21:02 Terazosin HCl (Hytrin) 5 mg BEDTIME ORAL 12/31/19 21:00 01/29/20 20:59 01/02/20 20:25 Vancomycin HCl (Vanco pharmacy to dose) 1 ea DAILY PRN MISC . 12/31/19 11:00 01/30/20 10:59 Vancomycin HCl 1 gm/Dextrose 275 ml @ 183.708 mls/hr Q12H IVPB 12/31/19 03:00 01/05/20 02:59 01/03/20 15:17 Allergies: Coded Allergies: No Known Allergies (Unverified , 05/07/14) ROS Limited/Unobtainable: No Constitutional: Reports: no symptoms HEENT: Reports: no symptoms Cardiovascular: Reports: no symptoms Respiratory: Reports: no symptoms Gastrointestinal/Abdominal: Reports: no symptoms Genitourinary: Reports: no symptoms Neurologic/Psychiatric: Reports: no symptoms Subjective 69 YO M with history of left foot TMA admitted with left foot pain. Now left foot diabetic foot ulcer. Cover for Int Ney Dahl Objective Last Vital Signs Date Time Temp Pulse Resp B/P (MAP) Pulse Ox O2 Delivery O2 Flow Rate FiO2 01/03/20 17:41 98.2 79 18 147/85 (105) 96 01/03/20 09:47 Room Air Laboratory Tests Test 01/03/20 06:25 White Blood Count 5.0 K/UL (4.8-10.8) Red Blood Count 3.97 M/UL (4.70-6.10) L Hemoglobin 11.2 G/DL (14.2-18.0) L Hematocrit 33.1 % (42.0-52.0) L Mean Corpuscular Volume 83 FL (80-99) Mean Corpuscular Hemoglobin 28.3 PG (27.0-31.0) Mean Corpuscular Hemoglobin Concent 34.0 G/DL (32.0-36.0) Red Cell Distribution Width 12.8 % (11.6-14.8) Platelet Count 263 K/UL (150-450) Mean Platelet Volume 5.4 FL (6.5-10.1) L Neutrophils (%) (Auto) 62.3 % (45.0-75.0) Lymphocytes (%) (Auto) 28.2 % (20.0-45.0) Monocytes (%) (Auto) 7.2 % (1.0-10.0) Eosinophils (%) (Auto) 1.4 % (0.0-3.0) Basophils (%) (Auto) 0.9 % (0.0-2.0) Sodium Level 135 MMOL/L (136-145) L Potassium Level 4.2 MMOL/L (3.5-5.1) Chloride Level 99 MMOL/L (98-107) Carbon Dioxide Level 28 MMOL/L (21-32) Anion Gap 8 mmol/L (5-15) Blood Urea Nitrogen 13 mg/dL (7-18) Creatinine 1.2 MG/DL (0.55-1.30) Estimat Glomerular Filtration Rate > 60 mL/min (>60) Glucose Level 299 MG/DL (74-106) #H Calcium Level 9.3 MG/DL (8.5-10.1) Intake and Output 01/02/20 01/03/20 19:00 07:00 Intake Total 1707.416 ml 1285.000 ml Output Total 1200 ml 1100 ml Balance 507.416 ml 185.000 ml Intake Oral 1120 ml 900 ml IV Total 587.416 ml 385.000 ml Output Urine Total 1200 ml 1100 ml Stool Total 0 ml # Voids 8 5 Objective PHYSICAL EXAMINATION: GENERAL: The patient is well-developed and well-nourished male, in no apparent distress. HEENT: Eyes, pupils are equal and responsive to light and accommodation. Extraocular movements are intact. NECK: Supple without lymphadenopathy. CHEST: Lungs are clear to auscultation bilaterally without wheezes or rales. CARDIOVASCULAR: Regular rhythm and rate. S1 and S2 are normal without murmurs, rubs, or gallops. ABDOMEN: Soft, nontender, and nondistended. Positive bowel sounds. No evidence of hepatosplenomegaly. Currently, no rebound or guarding noted. EXTREMITIES: Presence of serosanguineous discharge from the left foot. The left foot is bandaged. Otherwise extremities without clubbing, cyanosis, or edema. RECTAL/GENITAL: Refused. NEUROLOGIC: Cranial nerves II through XII are grossly intact without focal deficits. Motor strength is 5/5 5/5 bilaterally. Deep tendon reflexes are 2+ plantar. Assessment/Plan Assessment/Plan ASSESSMENT: This is a 69-year-old male. 1. Left foot pain. 2. Left foot diabetic ulcer. 3. Diabetes type 2. 4. Hypertension. 5. Seizure disorder. 6. Coronary artery disease. TREATMENT: 1. Left foot diabetic ulcer/left foot pain. A podiatry consultation obtained with Dr. Marion. We will follow recommendations of Podiatry. The patient has been started empirically on vancomycin and cefepime. MRI= neg for osteomyelitis. 2. Diabetes type 2. NovoLog sliding scale has been instituted. 3. Hypertension. Continue Coreg as above. 4. Seizure disorder. Continue Dilantin as above. 5. Coronary artery disease. Continue isosorbide and Plavix as above. 6. Vascular surgery=Dr Candelario. Transfer to [facility] @ [place] for left leg angiogram. when bed available. Sukumar Rhodes MD Jan 03, 2020 18:22
--- NOTE | 2020-01-03 19:23 | NUR ---
HAND-OFF: Report given to TANISHA MON.
--- NOTE | 2020-01-03 19:30 | NUR ---
NURSE NOTES: Received report from ELIESER Steve. AAO x 4, on room air. IV site intact. Pt c/o pain on L foot. L Midfoot amputated and has ulcer. Dressing c/d/i. Able to make needs known. No labored breathing. Bed locked, lowest position, alarm on, side rails up, call light within reach. Will continue to monitor.
[2020-01-03] MEDS: Atorvastatin 20mg tab ORAL SCH (20:48)
[2020-01-04] VITALS: BP 131/80
[2020-01-04] MEDS: Vancomycin 1gm/D5W 275ml IVPB SCH ×4 (02:58→16:38)
--- NOTE | 2020-01-04 03:09 | NUR ---
NURSE NOTES: Received a call from pipe line to continue the current dose of vanco.
[2020-01-04 03:31] VITALS: BP 124/91
[2020-01-04] MEDS: NovoLOG Insulin Flexpen SUBQ SCH ×4 (05:27→21:27)
[2020-01-04 05:45] LABS: BASOPHILS % (AUTO) 0.7 % (0.0-2.0); EOSINOPHILS % (AUTO) 1.5 % (0.0-3.0); HEMATOCRIT 34.7 % (42.0-52.0); HEMOGLOBIN 11.7 G/DL (14.2-18.0); LYMPHOCYTES % (AUTO) 31.1 % (20.0-45.0); MEAN CORPUSCULAR VOLUME 84 FL (80-99); MONOCYTES % (AUTO) 6.4 % (1.0-10.0); NEUTROPHILS % (AUTO) 60.4 % (45.0-75.0); PLATELET COUNT 267 K/UL (150-450); RED BLOOD COUNT 4.15 M/UL (4.70-6.10); RED CELL DISTRIBUTION WIDTH 12.8 % (11.6-14.8); WHITE BLOOD COUNT 5.4 K/UL (4.8-10.8)
[2020-01-04 06:03] LABS: ALANINE AMINOTRANSFERASE 26 U/L (12-78); ALBUMIN 3.3 G/DL (3.4-5.0); ALBUMIN/GLOBULIN RATIO 0.9 (1.0-2.7); ALKALINE PHOSPHATASE 142 U/L (46-116); ANION GAP 7 mmol/L (5-15); ASPARTATE AMINO TRANSFERASE 14 U/L (15-37); BILIRUBIN,TOTAL 0.3 MG/DL (0.2-1.0); BLOOD UREA NITROGEN 14 mg/dL (7-18); CALCIUM 9.2 MG/DL (8.5-10.1); CARBON DIOXIDE 30 MMOL/L (21-32); CHLORIDE 100 MMOL/L (98-107); CREATININE 1.1 MG/DL (0.55-1.30); PHOSPHORUS 3.5 MG/DL (2.5-4.9); POTASSIUM 4.3 MMOL/L (3.5-5.1); SODIUM 137 MMOL/L (136-145)
--- NOTE | 2020-01-04 07:22 | NUR ---
HAND-OFF: Report given to Huber/ELIESER Rogers.
--- NOTE | 2020-01-04 07:40 | NUR ---
NURSE NOTES: RECEIVED REPORT FROM SUNNY MON. PATIENT AAOX4 ON ROOM AIR. IV SITE ON LEFT ARM PATENT AND INTACT. PATIENT COMPLAINT OF PAIN ON LEFT FOOT. PATIENT HAS LEFT FOOT AMPUTATION. ABLE TO MAKE NEEDS KNOWN, NO ACUTE DISTRESS AT THIS TIME. RN EDUCATED PATIENT TO USE CALL LIGHT WHEN AMBULATING TO THE BATHROOM. CALL LIGHT WITHIN REACH. BED LOCKED AND PLACED IN LOWEST POSITION WITH ALARM ON. WILL CONTINUE TO MONITOR.
[2020-01-04 08:00] VITALS: BP 130/88
[2020-01-04] MEDS: Phenytoin 100mg cap ORAL SCH ×2 (08:55→17:26)
[2020-01-04] MEDS: Carvedilol 6.25mg Tab ORAL SCH ×2 (08:56→17:32)
[2020-01-04] MEDS: Aspirin EC 81mg tab ORAL SCH (08:56)
[2020-01-04] MEDS: Cefepime HCl 2 GM in D5W 110 ML IV SCH ×2 (08:59→21:18)
[2020-01-04] MEDS: Morphine Sulfate 4mg/ml Inj (IV USE ONLY) IVP PRN (08:59)
[2020-01-04] MEDS: Heparin 5000 units/ml inj SUBQ SCH ×2 (09:01→21:21)
--- NOTE | 2020-01-04 10:22 | NUR ---
RD ASSESSMENT & RECOMMENDATIONS SEE CARE ACTIVITY FOR COMPLETE ASSESSMENT DAILY ESTIMATED NEEDS: Needs based on dm, wound, cardiac/ 82.5kg 25-30 kcals/kg total kcals 1.25-1.5 g protein/kg 103-123 g total protein 25-30 mL/kg total fluid mLs NUTRITION DIAGNOSIS: 1) Altered nutrition related lab values r/t diabetes as evidenced by elev elev POC glu ([phone]) 2) Increased prot intake needs R/T wound healing as evidenced by pt w/ left TMA lateral stump wound necrosis CURRENT DIET:CCHO MED, mech soft chopped PO DIET RECOMMENDATIONS: CCHO MED, LOW NA (Texture per ROLL PLUGGER MACHINE OPERATOR) ADDITIONAL RECOMMENDATIONS: * Obtain a CALIBRATED bed scale wt for accurate CBW * Monitor BGs, consider long acting insulin for improved BG control (BGs 200's and 300's) * ROLL PLUGGER MACHINE OPERATOR eval for appropriate texture- h/o CVA * A1C for eval of BG control * Wound care: MVI x1, Vit C 250mg QD
--- NOTE | 2020-01-04 10:49 | NUR ---
*-* INSURANCE *-* UPDATED CLINICALS AND REVIEW HAVE BEEN FAXED TO: [facility] (PROFESSIONAL) P:[phone] F: [phone] ( FAX CLINICALS HERE AND TO [employer]) & [employer] AUTH# [id number] NCM: HOSSEIN Saab P:[phone] F:[phone] (FAX CLINICALS)
--- NOTE | 2020-01-04 11:30 | NUR ---
NURSE NOTES: PATIENTS BLOOD SUGAR LEVEL WAS AT 412. RN GAVE 12 UNITS OF NOVOLOG PER PROTOCOL. NOTIFIED AND LEFT MESSAGE TO DR. GIBSON REGARDING NEW ORDER. WILL CONTINUE TO MONITOR
[2020-01-04 11:49] VITALS: BP 128/76
--- NOTE | 2020-01-04 14:03 | Infectious Diseases Prog Note ---
Assessment/Plan Assessment/Plan Assessment: L foot pain and ulcer, cellulitis- ?OM (equivocal findings on MRI) -Foot xray: SOFT TISSUE ULCERATION. STATUS POST TRANSMETATARSAL AMPUTATION. NO RADIOGRAPHIC EVIDENCE OF OSTEOMYELITIS PRESENTLY. -MRI L foot: Equivocal increased STIR and decreased T1 signal in the distal fifth metatarsal stump. If real could indicate acute osteomyelitis, but could also be artifactual due to susceptibly artifact from cerclage wires in the area. No other evidence of acute osteomyelitis. 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 Considerable soft tissue edema. This is nonspecific, could indicate cellulitis or could be edema due to vasogenic/hemodynamic abnormalities. Nonspecific fluid along multiple flexor tendon sheaths -wound cx diphteroids -v. duplex: no DVT -a/ duplex: Study limited due to bandages obscuring portions of vasculature above. Left peroneal artery nonvisualized, potentially occluded. Findings a substantial peripheral arterial disease in the bilateral lower extremities from the right distal SFA and left mid SFA into the feet. Bilateral distal sluggish arterial flow and monophasic waveforms. Afebrile No leukocytosis -CXR: no acute disease lactic acidosis, mild-SP JASMIN PAD HTN Dm2 c/w neuropathy PVD s/p L TMA chronic ischemic foot pain Plan: -Continue empiric IV Vancomycin and Cefepime #6 -12/29 SP Levaquin x1 -f/u cx -Monitor CBC/CMP, temperature -wound care per podiatry -podiatry f/u -plan to Transfer to [facility] @ [place] for left leg angiogram.when bed available. Thank you for consulting [facility]. Will continue to follow along with you. Subjective Allergies: Coded Allergies: No Known Allergies (Unverified , 05/07/14) Subjective afebrile no leukocytosis Objective Vital Signs Last 24 Hour Vital Signs Date Time Temp Pulse Resp B/P (MAP) Pulse Ox O2 Delivery O2 Flow Rate FiO2 01/04/20 11:49 97.7 84 19 128/76 (93) 95 01/04/20 09:00 Room Air 01/04/20 08:56 91 130/88 01/04/20 08:00 98.6 91 20 130/88 (102) 98 01/04/20 03:31 97.7 93 20 124/91 (102) 97 01/04/20 00:00 97.9 83 20 131/80 (97) 97 01/03/20 21:00 Room Air 01/03/20 20:00 97.8 80 20 127/72 (90) 94 01/03/20 18:27 79 147/85 01/03/20 17:41 98.2 79 18 147/85 (105) 96 Height (Feet): 6 Height (Inches): 1.00 Weight (Pounds): 210 Objective General Appearance: alert, non-toxic Eyes: bilateral eye normal inspection, bilateral eye PERRL ENT: hearing grossly normal, normal pharynx, no angioedema, normal voice Neck: full range of motion Respiratory: chest non-tender, lungs clear, normal breath sounds, speaking full sentences Cardiovascular regular rate, rhythm, no edema Gastrointestinal: normal bowel sounds, non tender, soft, non-distended, no guarding, no rebound Musculoskeletal: other - Left foot status post partial amputation diffuse redness and swelling with tenderness to palpation mid lateral ulceration w/ eschar, no drainage. Microbiology Date/Time Source Procedure Growth Status 01/01/20 19:00 Nasopharynx Coronavirus COVID-19 PCR (TAB) - Final Complete Laboratory Tests Test 01/04/20 01:30 01/04/20 04:00 Vancomycin Level Trough 15.5 ug/mL (5.0-12.0) H White Blood Count 5.4 K/UL (4.8-10.8) Red Blood Count 4.15 M/UL (4.70-6.10) L Hemoglobin 11.7 G/DL (14.2-18.0) L Hematocrit 34.7 % (42.0-52.0) L Mean Corpuscular Volume 84 FL (80-99) Mean Corpuscular Hemoglobin 28.2 PG (27.0-31.0) Mean Corpuscular Hemoglobin Concent 33.7 G/DL (32.0-36.0) Red Cell Distribution Width 12.8 % (11.6-14.8) Platelet Count 267 K/UL (150-450) Mean Platelet Volume 5.3 FL (6.5-10.1) L Neutrophils (%) (Auto) 60.4 % (45.0-75.0) Lymphocytes (%) (Auto) 31.1 % (20.0-45.0) Monocytes (%) (Auto) 6.4 % (1.0-10.0) Eosinophils (%) (Auto) 1.5 % (0.0-3.0) Basophils (%) (Auto) 0.7 % (0.0-2.0) Erythrocyte Sedimentation Rate 49 MM/HR (0-20) H Sodium Level 137 MMOL/L (136-145) Potassium Level 4.3 MMOL/L (3.5-5.1) Chloride Level 100 MMOL/L (98-107) Carbon Dioxide Level 30 MMOL/L (21-32) Anion Gap 7 mmol/L (5-15) Blood Urea Nitrogen 14 mg/dL (7-18) Creatinine 1.1 MG/DL (0.55-1.30) Estimat Glomerular Filtration Rate > 60 mL/min (>60) Glucose Level 182 MG/DL (74-106) #H Calcium Level 9.2 MG/DL (8.5-10.1) Phosphorus Level 3.5 MG/DL (2.5-4.9) Magnesium Level 1.8 MG/DL (1.8-2.4) Total Bilirubin 0.3 MG/DL (0.2-1.0) Aspartate Amino Transf (AST/SGOT) 14 U/L (15-37) L Alanine Aminotransferase (ALT/SGPT) 26 U/L (12-78) Alkaline Phosphatase 142 U/L (46-116) H C-Reactive Protein, Quantitative 2.0 mg/dL (0.00-0.90) H Total Protein 7.1 G/DL (6.4-8.2) Albumin 3.3 G/DL (3.4-5.0) L Globulin 3.8 g/dL Albumin/Globulin Ratio 0.9 (1.0-2.7) L Current Medications Medications (Trade) Dose Ordered Sig/Mell Route PRN Reason Start Time Stop Time Status Last Admin Dose Admin Acetaminophen (Tylenol) 650 mg Q4H PRN ORAL fever 12/30/19 11:15 01/29/20 11:14 Acetaminophen/ Hydrocodone Bitart ([place] 10/325) 1 tab Q4H PRN ORAL For Pain 4-6 12/30/19 13:15 01/06/20 13:14 Aspirin (Ecotrin) 81 mg DAILY ORAL 12/31/19 09:00 02/14/20 08:59 01/04/20 08:56 Atorvastatin Calcium (Lipitor) 20 mg BEDTIME ORAL 12/31/19 21:00 03/29/20 20:59 01/03/20 20:48 Carvedilol (Coreg) 6.25 mg BID ORAL 12/30/19 18:00 01/29/20 17:59 01/04/20 08:56 Cefepime HCl 2 gm/ Dextrose 110 ml @ 220 mls/hr EVERY 12 HOURS IV 12/30/19 21:00 01/06/20 20:59 01/04/20 08:59 Clopidogrel Bisulfate (Plavix) 75 mg DAILY ORAL 12/31/19 09:00 01/30/20 08:59 01/04/20 08:56 Dextrose (Dextrose 50%) 25 ml Q30M PRN IV Hypoglycemia 12/30/19 11:15 03/29/20 11:14 Dextrose (Dextrose 50%) 50 ml Q30M PRN IV Hypoglycemia 12/30/19 11:15 03/29/20 11:14 Heparin Sodium (Porcine) (Heparin 5000 units/ml) 5,000 units EVERY 12 HOURS SUBQ 12/30/19 21:00 02/13/20 20:59 01/04/20 09:01 Insulin Aspart (NovoLOG) BEFORE MEALS AND HS SUBQ 12/30/19 11:30 03/29/20 11:29 01/04/20 11:41 Morphine Sulfate (Morphine Sulfate) 4 mg Q4H PRN IVP For Pain 7-10 12/31/19 07:48 01/07/20 07:47 01/04/20 08:59 Nitroglycerin (Ntg) 0.4 mg Q 5 MINS PRN SL . PRN CHEST PAIN 12/30/19 11:15 01/29/20 11:14 Ondansetron HCl (Zofran) 4 mg Q6H PRN IVP Nausea & Vomiting 12/30/19 11:15 01/29/20 11:14 Phenytoin (Dilantin) 200 mg TWICE A DAY ORAL 12/30/19 18:00 01/29/20 17:59 01/04/20 08:55 Polyethylene Glycol (Miralax) 17 gm DAILYPRN PRN ORAL Constipation 12/30/19 11:15 01/29/20 11:14 01/03/20 05:46 Temazepam (Restoril) 30 mg HSPRN PRN ORAL Insomnia 12/31/19 20:30 01/06/20 11:14 01/03/20 20:51 Terazosin HCl (Hytrin) 5 mg BEDTIME ORAL 12/31/19 21:00 01/29/20 20:59 01/03/20 20:48 Vancomycin HCl (Vanco pharmacy to dose) 1 ea DAILY PRN MISC . 12/31/19 11:00 01/30/20 10:59 Vancomycin HCl 1 gm/Dextrose 275 ml @ 183.708 mls/hr Q12H IVPB 12/31/19 03:00 01/05/20 02:59 01/04/20 02:58 Audrey Williamson M.D. Jan 04, 2020 14:03
--- NOTE | 2020-01-04 14:19 | Pulmonology Progress Note ---
Subjective ROS Limited/Unobtainable: No Interval Events: doing better Allergies: Coded Allergies: No Known Allergies (Unverified , 05/07/14) Objective Last 24 Hour Vital Signs Date Time Temp Pulse Resp B/P (MAP) Pulse Ox O2 Delivery O2 Flow Rate FiO2 01/04/20 11:49 97.7 84 19 128/76 (93) 95 01/04/20 09:00 Room Air 01/04/20 08:56 91 130/88 01/04/20 08:00 98.6 91 20 130/88 (102) 98 01/04/20 03:31 97.7 93 20 124/91 (102) 97 01/04/20 00:00 97.9 83 20 131/80 (97) 97 01/03/20 21:00 Room Air 01/03/20 20:00 97.8 80 20 127/72 (90) 94 01/03/20 18:27 79 147/85 01/03/20 17:41 98.2 79 18 147/85 (105) 96 Intake and Output 01/03/20 01/04/20 19:00 07:00 Intake Total 840 ml Output Total 1050 ml 500 ml Balance -210 ml -500 ml Intake Oral 840 ml Output Urine Total 1050 ml 500 ml # Bowel Movements 1 General Appearance: WD/WN Cardiovascular: normal peripheral pulses, regular rhythm Abdomen: normal bowel sounds, soft, non tender Genitourinary: normal external genitalia Skin: no rash, no ulcers Neurologic: sexologist II-XII grossly normal Microbiology Date/Time Source Procedure Growth Status 01/01/20 19:00 Nasopharynx Coronavirus COVID-19 PCR (TAB) - Final Complete Laboratory Tests 01/04/20 01:30: Vancomycin Level Trough 15.5H 01/04/20 04:00: White Blood Count 5.4, Red Blood Count 4.15L, Hemoglobin 11.7L, Hematocrit 34.7L , Mean Corpuscular Volume 84, Mean Corpuscular Hemoglobin 28.2, Mean Corpuscular Hemoglobin Concent 33.7, Red Cell Distribution Width 12.8, Platelet Count 267, Mean Platelet Volume 5.3L, Neutrophils (%) (Auto) 60.4, Lymphocytes ( %) (Auto) 31.1, Monocytes (%) (Auto) 6.4, Eosinophils (%) (Auto) 1.5, Basophils (%) (Auto) 0.7, Erythrocyte Sedimentation Rate 49H, Sodium Level 137, Potassium Level 4.3, Chloride Level 100, Carbon Dioxide Level 30, Anion Gap 7, Blood Urea Nitrogen 14, Creatinine 1.1, Estimat Glomerular Filtration Rate > 60, Glucose Level 182#H, Calcium Level 9.2, Phosphorus Level 3.5, Magnesium Level 1.8, Total Bilirubin 0.3, Aspartate Amino Transf (AST/SGOT) 14L, Alanine Aminotransferase (ALT/SGPT) 26, Alkaline Phosphatase 142H, C-Reactive Protein, Quantitative 2.0H, Total Protein 7.1, Albumin 3.3L, Globulin 3.8, Albumin/ Globulin Ratio 0.9L Current Medications Medications (Trade) Dose Ordered Sig/Mell Route PRN Reason Start Time Stop Time Status Last Admin Dose Admin Acetaminophen (Tylenol) 650 mg Q4H PRN ORAL fever 12/30/19 11:15 01/29/20 11:14 Acetaminophen/ Hydrocodone Bitart ([place] 10/325) 1 tab Q4H PRN ORAL For Pain 4-6 12/30/19 13:15 01/06/20 13:14 Aspirin (Ecotrin) 81 mg DAILY ORAL 12/31/19 09:00 02/14/20 08:59 01/04/20 08:56 Atorvastatin Calcium (Lipitor) 20 mg BEDTIME ORAL 12/31/19 21:00 03/29/20 20:59 01/03/20 20:48 Carvedilol (Coreg) 6.25 mg BID ORAL 12/30/19 18:00 01/29/20 17:59 01/04/20 08:56 Cefepime HCl 2 gm/ Dextrose 110 ml @ 220 mls/hr EVERY 12 HOURS IV 12/30/19 21:00 01/06/20 20:59 01/04/20 08:59 Clopidogrel Bisulfate (Plavix) 75 mg DAILY ORAL 12/31/19 09:00 01/30/20 08:59 01/04/20 08:56 Dextrose (Dextrose 50%) 25 ml Q30M PRN IV Hypoglycemia 12/30/19 11:15 03/29/20 11:14 Dextrose (Dextrose 50%) 50 ml Q30M PRN IV Hypoglycemia 12/30/19 11:15 03/29/20 11:14 Heparin Sodium (Porcine) (Heparin 5000 units/ml) 5,000 units EVERY 12 HOURS SUBQ 12/30/19 21:00 02/13/20 20:59 01/04/20 09:01 Insulin Aspart (NovoLOG) BEFORE MEALS AND HS SUBQ 12/30/19 11:30 03/29/20 11:29 01/04/20 11:41 Morphine Sulfate (Morphine Sulfate) 4 mg Q4H PRN IVP For Pain 7-10 12/31/19 07:48 01/07/20 07:47 01/04/20 08:59 Nitroglycerin (Ntg) 0.4 mg Q 5 MINS PRN SL . PRN CHEST PAIN 12/30/19 11:15 01/29/20 11:14 Ondansetron HCl (Zofran) 4 mg Q6H PRN IVP Nausea & Vomiting 12/30/19 11:15 01/29/20 11:14 Phenytoin (Dilantin) 200 mg TWICE A DAY ORAL 12/30/19 18:00 01/29/20 17:59 01/04/20 08:55 Polyethylene Glycol (Miralax) 17 gm DAILYPRN PRN ORAL Constipation 12/30/19 11:15 01/29/20 11:14 01/03/20 05:46 Temazepam (Restoril) 30 mg HSPRN PRN ORAL Insomnia 12/31/19 20:30 01/06/20 11:14 01/03/20 20:51 Terazosin HCl (Hytrin) 5 mg BEDTIME ORAL 12/31/19 21:00 01/29/20 20:59 01/03/20 20:48 Vancomycin HCl (Vanco pharmacy to dose) 1 ea DAILY PRN MISC . 12/31/19 11:00 01/30/20 10:59 Vancomycin HCl 1 gm/Dextrose 275 ml @ 183.708 mls/hr Q12H IVPB 12/31/19 03:00 01/05/20 02:59 01/04/20 02:58 Assessment/Plan Problems: (1) Diabetic foot ulcer (2) Cellulitis (3) CAD (coronary artery disease) (4) PVD (peripheral vascular disease) (5) History of CVA (cerebrovascular accident) (6) Epileptic seizure, generalized (7) Diabetes mellitus Assessment/Plan MRI: Equivocal increased STIR and decreased T1 signal in the distal fifth metatarsal stump. If real could indicate acute osteomyelitis, but could also be artifactual due to susceptibly artifact from cerclage wires in the area. Podiatry and ID recommendations appreciated wound culture iv abx pain management sliding scale diabetic diet symptomatic treatment. Herson Montgomery MD Jan 04, 2020 14:19
[2020-01-04 16:00] VITALS: BP 117/70
--- NOTE | 2020-01-04 16:03 | NUR ---
SENIOR NET ENGINEER NOTE:LATE ENTRY CALL MADE TO GLADIS Parekh @ [phone]. NO ANSWER. VM LEFT REQUESTING CALL BACK IN RE TO DENIAL. FOLLOW UP CALL MADE WITH NO ANSWER.
--- NOTE | 2020-01-04 16:04 | Internal Med Progress Note ---
Subjective Date of Service: Jan 04, 2020 Physician Name Sukumar Rhodes Attending Physician Luis Dahl MD Current Medications Medications (Trade) Dose Ordered Sig/Mell Route PRN Reason Start Time Stop Time Status Last Admin Dose Admin Acetaminophen (Tylenol) 650 mg Q4H PRN ORAL fever 12/30/19 11:15 01/29/20 11:14 Acetaminophen/ Hydrocodone Bitart ([place] 10/325) 1 tab Q4H PRN ORAL For Pain 4-6 12/30/19 13:15 01/06/20 13:14 Aspirin (Ecotrin) 81 mg DAILY ORAL 12/31/19 09:00 02/14/20 08:59 01/04/20 08:56 Atorvastatin Calcium (Lipitor) 20 mg BEDTIME ORAL 12/31/19 21:00 03/29/20 20:59 01/03/20 20:48 Carvedilol (Coreg) 6.25 mg BID ORAL 12/30/19 18:00 01/29/20 17:59 01/04/20 08:56 Cefepime HCl 2 gm/ Dextrose 110 ml @ 220 mls/hr EVERY 12 HOURS IV 12/30/19 21:00 01/06/20 20:59 01/04/20 08:59 Clopidogrel Bisulfate (Plavix) 75 mg DAILY ORAL 12/31/19 09:00 01/30/20 08:59 01/04/20 08:56 Dextrose (Dextrose 50%) 25 ml Q30M PRN IV Hypoglycemia 12/30/19 11:15 03/29/20 11:14 Dextrose (Dextrose 50%) 50 ml Q30M PRN IV Hypoglycemia 12/30/19 11:15 03/29/20 11:14 Heparin Sodium (Porcine) (Heparin 5000 units/ml) 5,000 units EVERY 12 HOURS SUBQ 12/30/19 21:00 02/13/20 20:59 01/04/20 09:01 Insulin Aspart (NovoLOG) BEFORE MEALS AND HS SUBQ 12/30/19 11:30 03/29/20 11:29 01/04/20 11:41 Morphine Sulfate (Morphine Sulfate) 4 mg Q4H PRN IVP For Pain 7-10 12/31/19 07:48 01/07/20 07:47 01/04/20 08:59 Nitroglycerin (Ntg) 0.4 mg Q 5 MINS PRN SL . PRN CHEST PAIN 12/30/19 11:15 01/29/20 11:14 Ondansetron HCl (Zofran) 4 mg Q6H PRN IVP Nausea & Vomiting 12/30/19 11:15 01/29/20 11:14 Phenytoin (Dilantin) 200 mg TWICE A DAY ORAL 12/30/19 18:00 01/29/20 17:59 01/04/20 08:55 Polyethylene Glycol (Miralax) 17 gm DAILYPRN PRN ORAL Constipation 12/30/19 11:15 01/29/20 11:14 01/03/20 05:46 Temazepam (Restoril) 30 mg HSPRN PRN ORAL Insomnia 12/31/19 20:30 01/06/20 11:14 01/03/20 20:51 Terazosin HCl (Hytrin) 5 mg BEDTIME ORAL 12/31/19 21:00 01/29/20 20:59 01/03/20 20:48 Vancomycin HCl (Vanco pharmacy to dose) 1 ea DAILY PRN MISC . 12/31/19 11:00 01/30/20 10:59 Vancomycin HCl 1 gm/Dextrose 275 ml @ 183.708 mls/hr Q12H IVPB 12/31/19 03:00 01/05/20 23:59 01/04/20 02:58 Allergies: Coded Allergies: No Known Allergies (Unverified , 05/07/14) ROS Limited/Unobtainable: No Constitutional: Reports: no symptoms HEENT: Reports: no symptoms Cardiovascular: Reports: no symptoms Respiratory: Reports: no symptoms Gastrointestinal/Abdominal: Reports: no symptoms Genitourinary: Reports: no symptoms Neurologic/Psychiatric: Reports: no symptoms Subjective 69 YO M with history of left foot TMA admitted with left foot pain. Now left foot diabetic foot ulcer. Cover for Int Larry-Dr Dahl Objective Last Vital Signs Date Time Temp Pulse Resp B/P (MAP) Pulse Ox O2 Delivery O2 Flow Rate FiO2 01/04/20 11:49 97.7 84 19 128/76 (93) 95 01/04/20 09:00 Room Air Laboratory Tests Test 01/04/20 01:30 01/04/20 04:00 Vancomycin Level Trough 15.5 ug/mL (5.0-12.0) H White Blood Count 5.4 K/UL (4.8-10.8) Red Blood Count 4.15 M/UL (4.70-6.10) L Hemoglobin 11.7 G/DL (14.2-18.0) L Hematocrit 34.7 % (42.0-52.0) L Mean Corpuscular Volume 84 FL (80-99) Mean Corpuscular Hemoglobin 28.2 PG (27.0-31.0) Mean Corpuscular Hemoglobin Concent 33.7 G/DL (32.0-36.0) Red Cell Distribution Width 12.8 % (11.6-14.8) Platelet Count 267 K/UL (150-450) Mean Platelet Volume 5.3 FL (6.5-10.1) L Neutrophils (%) (Auto) 60.4 % (45.0-75.0) Lymphocytes (%) (Auto) 31.1 % (20.0-45.0) Monocytes (%) (Auto) 6.4 % (1.0-10.0) Eosinophils (%) (Auto) 1.5 % (0.0-3.0) Basophils (%) (Auto) 0.7 % (0.0-2.0) Erythrocyte Sedimentation Rate 49 MM/HR (0-20) H Sodium Level 137 MMOL/L (136-145) Potassium Level 4.3 MMOL/L (3.5-5.1) Chloride Level 100 MMOL/L (98-107) Carbon Dioxide Level 30 MMOL/L (21-32) Anion Gap 7 mmol/L (5-15) Blood Urea Nitrogen 14 mg/dL (7-18) Creatinine 1.1 MG/DL (0.55-1.30) Estimat Glomerular Filtration Rate > 60 mL/min (>60) Glucose Level 182 MG/DL (74-106) #H Calcium Level 9.2 MG/DL (8.5-10.1) Phosphorus Level 3.5 MG/DL (2.5-4.9) Magnesium Level 1.8 MG/DL (1.8-2.4) Total Bilirubin 0.3 MG/DL (0.2-1.0) Aspartate Amino Transf (AST/SGOT) 14 U/L (15-37) L Alanine Aminotransferase (ALT/SGPT) 26 U/L (12-78) Alkaline Phosphatase 142 U/L (46-116) H C-Reactive Protein, Quantitative 2.0 mg/dL (0.00-0.90) H Total Protein 7.1 G/DL (6.4-8.2) Albumin 3.3 G/DL (3.4-5.0) L Globulin 3.8 g/dL Albumin/Globulin Ratio 0.9 (1.0-2.7) L Microbiology Date/Time Source Procedure Growth Status 01/01/20 19:00 Nasopharynx Coronavirus COVID-19 PCR (TAB) - Final Complete Intake and Output 01/03/20 01/04/20 19:00 07:00 Intake Total 840 ml Output Total 1050 ml 500 ml Balance -210 ml -500 ml Intake Oral 840 ml Output Urine Total 1050 ml 500 ml # Bowel Movements 1 Objective PHYSICAL EXAMINATION: GENERAL: The patient is well-developed and well-nourished male, in no apparent distress. HEENT: Eyes, pupils are equal and responsive to light and accommodation. Extraocular movements are intact. NECK: Supple without lymphadenopathy. CHEST: Lungs are clear to auscultation bilaterally without wheezes or rales. CARDIOVASCULAR: Regular rhythm and rate. S1 and S2 are normal without murmurs, rubs, or gallops. ABDOMEN: Soft, nontender, and nondistended. Positive bowel sounds. No evidence of hepatosplenomegaly. Currently, no rebound or guarding noted. EXTREMITIES: Presence of serosanguineous discharge from the left foot. The left foot is bandaged. Otherwise extremities without clubbing, cyanosis, or edema. RECTAL/GENITAL: Refused. NEUROLOGIC: Cranial nerves II through XII are grossly intact without focal deficits. Motor strength is 5/5 5/5 bilaterally. Deep tendon reflexes are 2+ plantar. Assessment/Plan Assessment/Plan ASSESSMENT: This is a 69-year-old male. 1. Left foot pain. 2. Left foot diabetic ulcer. 3. Diabetes type 2. 4. Hypertension. 5. Seizure disorder. 6. Coronary artery disease. TREATMENT: 1. Left foot diabetic ulcer/left foot pain. A podiatry consultation obtained with Dr. Marion. We will follow recommendations of Podiatry. The patient has been started empirically on vancomycin and cefepime. MRI= neg for osteomyelitis. 2. Diabetes type 2. NovoLog sliding scale has been instituted. 3. Hypertension. Continue Coreg as above. 4. Seizure disorder. Continue Dilantin as above. 5. Coronary artery disease. Continue isosorbide and Plavix as above. 6. Vascular surgery=Dr Candelario. Transfer to [facility] [place] for left leg angiogram 01/05/20. Sukumar Rhodes MD Jan 04, 2020 16:04
--- NOTE | 2020-01-04 17:00 | NUR ---
NURSE NOTES: PATIENTS IV VANCO RAN LATE DUE TO MEDICATION NOT BEING IN THE MEDICATION ROOM. RN CALLED PHARMACY AND ASKED FOR THE MEDICATION AND PHARMACY SAID THAT THEYLL TAKE IT UP NEXT ROUNDS.
--- NOTE | 2020-01-04 18:45 | NUR ---
NURSE NOTES: LEFT FOOT DRESSING CHANGED ORDERED PER DR GODWIN'S ORDERS.
--- NOTE | 2020-01-04 19:37 | NUR ---
HAND-OFF: Report given to Fauzia KENDALL RN.
--- NOTE | 2020-01-04 19:40 | NUR ---
NURSE NOTES: Patient in bed resting. On room air with no signs of distress or SOB. IV intact and patent. L foot dressing dry and intact. Bed locked and in lowest position. Bed alarm on. Call light in reach. Will continue to follow plan of care.
[2020-01-04 20:00] VITALS: BP 146/72
[2020-01-04] MEDS: Atorvastatin 20mg tab ORAL SCH (21:18)
[2020-01-05] VITALS: BP 144/85
[2020-01-05] MEDS: Morphine Sulfate 4mg/ml Inj (IV USE ONLY) IVP PRN ×4 (01:07→17:18)
[2020-01-05] MEDS: Vancomycin 1gm/D5W 275ml IVPB SCH ×4 (02:55→14:04)
[2020-01-05 04:00] VITALS: BP 115/75
[2020-01-05] MEDS: NovoLOG Insulin Flexpen SUBQ SCH ×3 (06:10→16:30)
--- NOTE | 2020-01-05 07:28 | NUR ---
HAND-OFF: Report given to ELIESER Roche.
--- NOTE | 2020-01-05 07:39 | NUR ---
NURSE NOTES: Report received from ELIESER Riggins. Patient received awake in bed, no SOB, alert and oriented x 4 with forgetfulness, verbal and able to make needs known, denies any discomfort at this time, bed in lowest position with alarm on and breaks engaged, IV line patent and intact, will continue to monitor and proceed with plan of care, call light within easy reach.
[2020-01-05 07:44] LABS: HEMATOCRIT 33.7 % (42.0-52.0); HEMOGLOBIN 11.6 G/DL (14.2-18.0); MEAN CORPUSCULAR VOLUME 83 FL (80-99); PLATELET COUNT 275 K/UL (150-450); RED BLOOD COUNT 4.05 M/UL (4.70-6.10); RED CELL DISTRIBUTION WIDTH 12.7 % (11.6-14.8); WHITE BLOOD COUNT 5.8 K/UL (4.8-10.8)
[2020-01-05 07:58] LABS: ANION GAP 7 mmol/L (5-15); BLOOD UREA NITROGEN 14 mg/dL (7-18); CARBON DIOXIDE 29 MMOL/L (21-32); CHLORIDE 99 MMOL/L (98-107); CREATININE 1.1 MG/DL (0.55-1.30); POTASSIUM 3.7 MMOL/L (3.5-5.1); SODIUM 135 MMOL/L (136-145)
[2020-01-05 08:00] VITALS: BP 106/61
[2020-01-05] MEDS: Cefepime HCl 2 GM in D5W 110 ML IV SCH (08:36)
[2020-01-05] MEDS: Phenytoin 100mg cap ORAL SCH ×2 (08:36→17:18)
[2020-01-05] MEDS: Carvedilol 6.25mg Tab ORAL SCH ×3 (08:37→17:19)
[2020-01-05] MEDS: Heparin 5000 units/ml inj SUBQ SCH (08:38)
[2020-01-05] MEDS: Aspirin EC 81mg tab ORAL SCH (08:38)
--- NOTE | 2020-01-05 10:58 | Internal Med Progress Note ---
Subjective Date of Service: Jan 05, 2020 Physician Name Sukumar Rhodes Attending Physician Luis Dahl MD Current Medications Medications (Trade) Dose Ordered Sig/Mell Route PRN Reason Start Time Stop Time Status Last Admin Dose Admin Acetaminophen (Tylenol) 650 mg Q4H PRN ORAL fever 12/30/19 11:15 01/29/20 11:14 Acetaminophen/ Hydrocodone Bitart ([place] 10/325) 1 tab Q4H PRN ORAL For Pain 4-6 12/30/19 13:15 01/06/20 13:14 Aspirin (Ecotrin) 81 mg DAILY ORAL 12/31/19 09:00 02/14/20 08:59 01/05/20 08:38 Atorvastatin Calcium (Lipitor) 20 mg BEDTIME ORAL 12/31/19 21:00 03/29/20 20:59 01/04/20 21:18 Carvedilol (Coreg) 6.25 mg BID ORAL 12/30/19 18:00 01/29/20 17:59 01/04/20 08:56 Cefepime HCl 2 gm/ Dextrose 110 ml @ 220 mls/hr EVERY 12 HOURS IV 12/30/19 21:00 01/06/20 20:59 01/05/20 08:36 Clopidogrel Bisulfate (Plavix) 75 mg DAILY ORAL 12/31/19 09:00 01/30/20 08:59 01/05/20 08:37 Dextrose (Dextrose 50%) 25 ml Q30M PRN IV Hypoglycemia 12/30/19 11:15 03/29/20 11:14 Dextrose (Dextrose 50%) 50 ml Q30M PRN IV Hypoglycemia 12/30/19 11:15 03/29/20 11:14 Heparin Sodium (Porcine) (Heparin 5000 units/ml) 5,000 units EVERY 12 HOURS SUBQ 12/30/19 21:00 02/13/20 20:59 01/05/20 08:38 Insulin Aspart (NovoLOG) BEFORE MEALS AND HS SUBQ 12/30/19 11:30 03/29/20 11:29 01/05/20 06:10 Morphine Sulfate (Morphine Sulfate) 4 mg Q4H PRN IVP For Pain 7-10 12/31/19 07:48 01/07/20 07:47 01/05/20 08:38 Nitroglycerin (Ntg) 0.4 mg Q 5 MINS PRN SL . PRN CHEST PAIN 12/30/19 11:15 01/29/20 11:14 Ondansetron HCl (Zofran) 4 mg Q6H PRN IVP Nausea & Vomiting 12/30/19 11:15 01/29/20 11:14 Phenytoin (Dilantin) 200 mg TWICE A DAY ORAL 12/30/19 18:00 01/29/20 17:59 01/05/20 08:36 Polyethylene Glycol (Miralax) 17 gm DAILYPRN PRN ORAL Constipation 12/30/19 11:15 01/29/20 11:14 01/03/20 05:46 Temazepam (Restoril) 30 mg HSPRN PRN ORAL Insomnia 12/31/19 20:30 01/06/20 11:14 01/03/20 20:51 Terazosin HCl (Hytrin) 5 mg BEDTIME ORAL 12/31/19 21:00 01/29/20 20:59 01/04/20 21:18 Vancomycin HCl (Vanco pharmacy to dose) 1 ea DAILY PRN MISC . 12/31/19 11:00 01/30/20 10:59 Vancomycin HCl 1 gm/Dextrose 275 ml @ 183.708 mls/hr Q12H IVPB 12/31/19 03:00 01/05/20 23:59 01/05/20 02:55 Allergies: Coded Allergies: No Known Allergies (Unverified , 05/07/14) ROS Limited/Unobtainable: No Constitutional: Reports: no symptoms HEENT: Reports: no symptoms Cardiovascular: Reports: no symptoms Respiratory: Reports: no symptoms Gastrointestinal/Abdominal: Reports: no symptoms Genitourinary: Reports: no symptoms Neurologic/Psychiatric: Reports: no symptoms Subjective 69 YO M with history of left foot TMA admitted with left foot pain. Now left foot diabetic foot ulcer. Cover for Int Ney Dahl Objective Last Vital Signs Date Time Temp Pulse Resp B/P (MAP) Pulse Ox O2 Delivery O2 Flow Rate FiO2 01/05/20 09:13 98.2 01/05/20 09:00 Room Air 01/05/20 08:39 101 106/61 01/05/20 08:00 19 97 Laboratory Tests Test 01/05/20 07:15 White Blood Count 5.8 K/UL (4.8-10.8) Red Blood Count 4.05 M/UL (4.70-6.10) L Hemoglobin 11.6 G/DL (14.2-18.0) L Hematocrit 33.7 % (42.0-52.0) L Mean Corpuscular Volume 83 FL (80-99) Mean Corpuscular Hemoglobin 28.7 PG (27.0-31.0) Mean Corpuscular Hemoglobin Concent 34.4 G/DL (32.0-36.0) Red Cell Distribution Width 12.7 % (11.6-14.8) Platelet Count 275 K/UL (150-450) Mean Platelet Volume 5.0 FL (6.5-10.1) L Neutrophils (%) (Auto) % (45.0-75.0) Lymphocytes (%) (Auto) % (20.0-45.0) Monocytes (%) (Auto) % (1.0-10.0) Eosinophils (%) (Auto) % (0.0-3.0) Basophils (%) (Auto) % (0.0-2.0) Differential Total Cells Counted 100 Neutrophils % (Manual) 52 % (45-75) Lymphocytes % (Manual) 39 % (20-45) Monocytes % (Manual) 8 % (1-10) Eosinophils % (Manual) 0 % (0-3) Basophils % (Manual) 1 % (0-2) Band Neutrophils 0 % (0-8) Platelet Estimate Adequate Platelet Morphology Normal Red Blood Cell Morphology Normal Sodium Level 135 MMOL/L (136-145) L Potassium Level 3.7 MMOL/L (3.5-5.1) Chloride Level 99 MMOL/L (98-107) Carbon Dioxide Level 29 MMOL/L (21-32) Anion Gap 7 mmol/L (5-15) Blood Urea Nitrogen 14 mg/dL (7-18) Creatinine 1.1 MG/DL (0.55-1.30) Estimat Glomerular Filtration Rate > 60 mL/min (>60) Glucose Level 219 MG/DL (74-106) H Calcium Level 9.0 MG/DL (8.5-10.1) Intake and Output 01/04/20 01/05/20 19:00 07:00 Intake Total 745.000 ml 240 ml Output Total 700 ml 500 ml Balance 45.000 ml -260 ml Intake Oral 360 ml 240 ml IV Total 385.000 ml Output Urine Total 700 ml 500 ml # Voids 2 Objective PHYSICAL EXAMINATION: GENERAL: The patient is well-developed and well-nourished male, in no apparent distress. HEENT: Eyes, pupils are equal and responsive to light and accommodation. Extraocular movements are intact. NECK: Supple without lymphadenopathy. CHEST: Lungs are clear to auscultation bilaterally without wheezes or rales. CARDIOVASCULAR: Regular rhythm and rate. S1 and S2 are normal without murmurs, rubs, or gallops. ABDOMEN: Soft, nontender, and nondistended. Positive bowel sounds. No evidence of hepatosplenomegaly. Currently, no rebound or guarding noted. EXTREMITIES: Presence of serosanguineous discharge from the left foot. The left foot is bandaged. Otherwise extremities without clubbing, cyanosis, or edema. RECTAL/GENITAL: Refused. NEUROLOGIC: Cranial nerves II through XII are grossly intact without focal deficits. Motor strength is 5/5 5/5 bilaterally. Deep tendon reflexes are 2+ plantar. Assessment/Plan Assessment/Plan ASSESSMENT: This is a 69-year-old male. 1. Left foot pain. 2. Left foot diabetic ulcer. 3. Diabetes type 2. 4. Hypertension. 5. Seizure disorder. 6. Coronary artery disease. TREATMENT: 1. Left foot diabetic ulcer/left foot pain. A podiatry consultation obtained with Dr. Marion. We will follow recommendations of Podiatry. The patient has been started empirically on vancomycin and cefepime. MRI= neg for osteomyelitis. 2. Diabetes type 2. NovoLog sliding scale has been instituted. 3. Hypertension. Continue Coreg as above. 4. Seizure disorder. Continue Dilantin as above. 5. Coronary artery disease. Continue isosorbide and Plavix as above. 6. Vascular surgery=Dr Candelario. Transfer to [facility] @ [place] for left leg angiogram 01/06/20. Sukumar Rhodes MD Jan 05, 2020 10:58
[2020-01-05 12:00] VITALS: BP 127/67
--- NOTE | 2020-01-05 12:06 | NUR ---
SANDWICH MACHINE OPERATOR NOTE CALL MADE TO DR TERRYARIAN OFFICE [phone]. S/W HAILY RE PROCEDURE ON 01/06/20. SHE INFORMED THIS CM PATIENTS PROCEDURE FOR ANGIOGRAM ON 01/06/20 HAS BEEN RESCHEDULED FOR Friday01/11/20 AT 0800 AM.
--- NOTE | 2020-01-05 13:01 | NUR ---
*-* INSURANCE *-* UPDATED CLINICALS HAVE BEEN FAXED TO: [facility] (PROFESSIONAL) P:[phone] F: [phone] ( FAX CLINICALS HERE AND TO [employer]) & [employer] AUTH# [id number] NCM: HOSSEIN Saab P:[phone]
--- NOTE | 2020-01-05 14:07 | NUR ---
NURSE NOTES: Patient will be discharge to home with [facility]. spoke to Oren Bennett,daughter. she will be available at home after 5pm. spoke to MARV Pyle. home health arranged by patient insurance [employer], once the patient discharged to home [facility] will call the patient for first visit. Dr. Montgomery will put discharge medications order for patient. will continue to f/u for the discharge.
[2020-01-05] MEDS ORDERED: CEFEPIME-D2 GM/50 ML IVPB (14:43)
[2020-01-05] MEDS ORDERED: VANCOMYCIN1 GM/2002 IV (14:43)
--- NOTE | 2020-01-05 15:19 | NUR ---
NURSE NOTES: ordered continuous IV ATB for the patient after discharge. spoke to MARV Romero for f/u with homehealth pharmacy. MARV Romero said /KATHLEEN will come to the hospital and switch the IV ATB to PO ATB.
--- NOTE | 2020-01-05 15:36 | NUR ---
MARINE SERVICE OPERATOR NOTES PT ACCEPTED TO [facility], NURSE TO CALL PT WITH TIME OF VISIT. NURSE MADE AWARE OK TO DC PT. [facility] [phone]
[2020-01-05 16:00] VITALS: BP 135/83
--- NOTE | 2020-01-05 16:10 | NUR ---
NURSE NOTES: Called [employer] and scheduled a 5:30 warp picker time for patient, however patient's daughter requested if time can be changed as she can not be home earlier, called and re-scheduled for a 6:30 pm warp picker instead. Also called [facility] to verify services and left a message.
--- NOTE | 2020-01-05 16:12 | Infectious Diseases Prog Note ---
Assessment/Plan Assessment/Plan Assessment: L foot pain and ulcer, cellulitis- ?OM (equivocal findings on MRI)- doubt OM clinically -Foot xray: SOFT TISSUE ULCERATION. STATUS POST TRANSMETATARSAL AMPUTATION. NO RADIOGRAPHIC EVIDENCE OF OSTEOMYELITIS PRESENTLY. -MRI L foot: Equivocal increased STIR and decreased T1 signal in the distal fifth metatarsal stump. If real could indicate acute osteomyelitis, but could also be artifactual due to susceptibly artifact from cerclage wires in the area. No other evidence of acute osteomyelitis. 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 Considerable soft tissue edema. This is nonspecific, could indicate cellulitis or could be edema due to vasogenic/hemodynamic abnormalities. Nonspecific fluid along multiple flexor tendon sheaths -wound cx diphteroids -v. duplex: no DVT -a/ duplex: Study limited due to bandages obscuring portions of vasculature above. Left peroneal artery nonvisualized, potentially occluded. Findings a substantial peripheral arterial disease in the bilateral lower extremities from the right distal SFA and left mid SFA into the feet. Bilateral distal sluggish arterial flow and monophasic waveforms. Afebrile No leukocytosis -CXR: no acute disease lactic acidosis, mild-SP JASMIN PAD HTN Dm2 c/w neuropathy PVD s/p L TMA chronic ischemic foot pain Plan: -Continue empiric IV Vancomycin and Cefepime #02/14 --ok to dc on PO Doxycycline 100mg bid and Augmentin 875/125 mg bid -12/29 SP Levaquin x1 -f/u cx -Monitor CBC/CMP, temperature -wound care per podiatry -podiatry f/u Thank you for consulting [facility]. Will continue to follow along with you. Subjective Allergies: Coded Allergies: No Known Allergies (Unverified , 05/07/14) Subjective afebrile no leukocytosis discharge planning Objective Vital Signs Last 24 Hour Vital Signs Date Time Temp Pulse Resp B/P (MAP) Pulse Ox O2 Delivery O2 Flow Rate FiO2 01/05/20 13:15 97.5 01/05/20 12:00 97.5 84 19 127/67 (87) 96 01/05/20 09:00 Room Air 01/05/20 08:39 101 106/61 01/05/20 08:00 98.2 101 19 106/61 (76) 97 01/05/20 04:00 97.0 93 26 115/75 (88) 96 01/05/20 00:00 97.6 92 26 144/85 (104) 95 01/04/20 21:00 Room Air 01/04/20 20:00 98.2 76 22 146/72 (96) 97 01/04/20 17:32 84 128/76 Height (Feet): 6 Height (Inches): 1.00 Weight (Pounds): 209 Objective General Appearance: alert, non-toxic Eyes: bilateral eye normal inspection, bilateral eye PERRL ENT: hearing grossly normal, normal pharynx, no angioedema, normal voice Neck: full range of motion Respiratory: chest non-tender, lungs clear, normal breath sounds, speaking full sentences Cardiovascular regular rate, rhythm, no edema Gastrointestinal: normal bowel sounds, non tender, soft, non-distended, no guarding, no rebound Musculoskeletal: other - Left foot status post partial amputation diffuse redness and swelling with tenderness to palpation mid lateral ulceration w/ eschar, no drainage. Laboratory Tests Test 01/05/20 07:15 White Blood Count 5.8 K/UL (4.8-10.8) Red Blood Count 4.05 M/UL (4.70-6.10) L Hemoglobin 11.6 G/DL (14.2-18.0) L Hematocrit 33.7 % (42.0-52.0) L Mean Corpuscular Volume 83 FL (80-99) Mean Corpuscular Hemoglobin 28.7 PG (27.0-31.0) Mean Corpuscular Hemoglobin Concent 34.4 G/DL (32.0-36.0) Red Cell Distribution Width 12.7 % (11.6-14.8) Platelet Count 275 K/UL (150-450) Mean Platelet Volume 5.0 FL (6.5-10.1) L Neutrophils (%) (Auto) % (45.0-75.0) Lymphocytes (%) (Auto) % (20.0-45.0) Monocytes (%) (Auto) % (1.0-10.0) Eosinophils (%) (Auto) % (0.0-3.0) Basophils (%) (Auto) % (0.0-2.0) Differential Total Cells Counted 100 Neutrophils % (Manual) 52 % (45-75) Lymphocytes % (Manual) 39 % (20-45) Monocytes % (Manual) 8 % (1-10) Eosinophils % (Manual) 0 % (0-3) Basophils % (Manual) 1 % (0-2) Band Neutrophils 0 % (0-8) Platelet Estimate Adequate Platelet Morphology Normal Red Blood Cell Morphology Normal Sodium Level 135 MMOL/L (136-145) L Potassium Level 3.7 MMOL/L (3.5-5.1) Chloride Level 99 MMOL/L (98-107) Carbon Dioxide Level 29 MMOL/L (21-32) Anion Gap 7 mmol/L (5-15) Blood Urea Nitrogen 14 mg/dL (7-18) Creatinine 1.1 MG/DL (0.55-1.30) Estimat Glomerular Filtration Rate > 60 mL/min (>60) Glucose Level 219 MG/DL (74-106) H Calcium Level 9.0 MG/DL (8.5-10.1) Current Medications Medications (Trade) Dose Ordered Sig/Mell Route PRN Reason Start Time Stop Time Status Last Admin Dose Admin Acetaminophen (Tylenol) 650 mg Q4H PRN ORAL fever 12/30/19 11:15 01/29/20 11:14 Acetaminophen/ Hydrocodone Bitart ([place] 10/325) 1 tab Q4H PRN ORAL For Pain 4-6 12/30/19 13:15 01/06/20 13:14 Aspirin (Ecotrin) 81 mg DAILY ORAL 12/31/19 09:00 02/14/20 08:59 01/05/20 08:38 Atorvastatin Calcium (Lipitor) 20 mg BEDTIME ORAL 12/31/19 21:00 03/29/20 20:59 01/04/20 21:18 Carvedilol (Coreg) 6.25 mg BID ORAL 12/30/19 18:00 01/29/20 17:59 01/04/20 08:56 Cefepime HCl 2 gm/ Dextrose 110 ml @ 220 mls/hr EVERY 12 HOURS IV 12/30/19 21:00 01/06/20 20:59 01/05/20 08:36 Clopidogrel Bisulfate (Plavix) 75 mg DAILY ORAL 12/31/19 09:00 01/30/20 08:59 01/05/20 08:37 Dextrose (Dextrose 50%) 25 ml Q30M PRN IV Hypoglycemia 12/30/19 11:15 03/29/20 11:14 Dextrose (Dextrose 50%) 50 ml Q30M PRN IV Hypoglycemia 12/30/19 11:15 03/29/20 11:14 Heparin Sodium (Porcine) (Heparin 5000 units/ml) 5,000 units EVERY 12 HOURS SUBQ 12/30/19 21:00 02/13/20 20:59 01/05/20 08:38 Insulin Aspart (NovoLOG) BEFORE MEALS AND HS SUBQ 12/30/19 11:30 03/29/20 11:29 01/05/20 11:36 Morphine Sulfate (Morphine Sulfate) 4 mg Q4H PRN IVP For Pain 7-12/31/19 07:48 01/07/20 07:47 01/05/20 12:44 Nitroglycerin (Ntg) 0.4 mg Q 5 MINS PRN SL . PRN CHEST PAIN 12/30/19 11:15 01/29/20 11:14 Ondansetron HCl (Zofran) 4 mg Q6H PRN IVP Nausea & Vomiting 12/30/19 11:15 01/29/20 11:14 Phenytoin (Dilantin) 200 mg TWICE A DAY ORAL 12/30/19 18:00 01/29/20 17:59 01/05/20 08:36 Polyethylene Glycol (Miralax) 17 gm DAILYPRN PRN ORAL Constipation 12/30/19 11:15 01/29/20 11:14 01/03/20 05:46 Temazepam (Restoril) 30 mg HSPRN PRN ORAL Insomnia 12/31/19 20:30 01/06/20 11:14 01/03/20 20:51 Terazosin HCl (Hytrin) 5 mg BEDTIME ORAL 12/31/19 21:00 01/29/20 20:59 01/04/20 21:18 Vancomycin HCl (Vanco pharmacy to dose) 1 ea DAILY PRN MISC . 12/31/19 11:00 01/30/20 10:59 Vancomycin HCl 1 gm/Dextrose 275 ml @ 183.708 mls/hr Q12H IVPB 12/31/19 03:00 01/05/20 23:59 01/05/20 14:04 Audrey Williamson M.D. Jan 05, 2020 16:12
[2020-01-05 17:19] VITALS: BP 135/83
[2020-01-05] MEDS ORDERED: DOXYCYCLINE MO100 MG ORAL (17:34)
[2020-01-05] MEDS ORDERED: AUGMENTIN 875-1 EAC1 ORAL (17:35)
--- NOTE | 2020-01-05 19:03 | NUR ---
NURSE NOTES: patient was discharged to home with home health via ambulance [facility] with stable condition. A&Ox3, verbally responsive. no respiratory distress noted on room air. discomfort on left foot. wearing orthopedic shoe on left foot. provided dc packet. checked and counted belongings with patient and obtained sign. removed IV and ID band. spoke to Belkis Cesar, daughter the patient will dc with new prescription for ATB. nurse was not able to send a fax to the [facility] d/t not answering the phone. . also, patient should be midnight NPO for angiogram on 01/11/20 and report to the Dr. Holly office the patient is ready for the procedure before he gets to the hospital for the angiogram. daughter is aware and verbalized understood. BP 135/72, HR 94.
--- NOTE | 2020-01-05 20:15 | NUR ---
NURSE NOTES:DAUGHTER AMARI POWER PATIENT CALLED, DID NOT RECEIVE PAIN PRESCRIPTION FOR [place], DR GIBSON PMD INFORMED AND TOLD ME TO INFORM HER THAT HER FATHER CAN TAKE OVER THE COUNTER TYLENOL ES ONE Q6 PRN TONIGHT AND TO GO TO HER PMD IN AM FOR A PRESCRIPTION. ALSO I GAVE THEM THE NUMBER OF DR TERRYARIANS OFFICE WHICH SHE DID NOT RECEIVE FOR THE FOLLOW UP APPOINTMENT. DISCUSSED WITH NANOELECTRONICS ENGINEER JUSTYNA.
--- NOTE | 2020-01-06 12:33 | Discharge Summary ---
Discharge Summary Discharge Summary _ DATE OF ADMISSION: 12/30/2019 DATE OF DISCHARGE: 01/05/2020 DISCHARGED BY: Dr. Dahl REASON FOR ADMISSION: 69 years old male with past medical history of diabetes, status post left partial foot amputation 2008, diabetic neuropathy, presented to emergency department complaining of left foot pain. Patient reported chronic pain since his surgery. Patient reported being on gabapentin without significant relief. Patient denied fever and chills. Patient denied any trauma to his foot. He denied chest pain or shortness of breath. No cough. No fever or chills. Upon evaluation patient was slightly tachycardic with heart rate 104 , otherwise vital signs were stable. Laboratory work-up revealed no leukocytosis, hemoglobin 11.6 , hematocrit 30.6 ,platelet count 260. Chemistry showed stable electrolytes and renal parameters. Glucose 152. Lactic acid 2.5 , repeated 2.4. Stable LFT. Albumin 3.5. EKG revealed sinus rhythm, no acute ischemic changes. Chest x-ray demonstrated no acute cardiopulmonary pathology. Left foot x-ray revealed soft tissue ulceration, status post transmetatarsal amputation, but no radiographic evidence of osteomyelitis. In emergency department patient pancultured , started on empiric antibiotic with coverage for MRSA and Pseudomonas and admitted for further management. Patient was also swabbed for COVID-19 . CONSULTANTS: pulmonary Dr. Montgomery vascular surgeon Dr. Candelario apparel merchandiser Dr. Marion ID specialist Dr. Williamson [facility] COURSE: Patient admitted to medical surgical floor and initially was kept in isolation. Patient started on empiric antibiotics as per ID specialist recommendation. SARS COV 2 by PCR on 12/31 came back not detected. Blood cultures were negative. Wound culture revealed diphtheroids, likely contaminant. MRI of the left foot showed equivocal increased STIR and decreased T1 signal in the distal fifth metatarsal stump. If real could indicate acute osteomyelitis, but could also be artifactual due to susceptibly artifact from cerclage wires in the area. No other evidence of acute osteomyelitis. 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 Considerable soft tissue edema. Could indicate cellulitis or could be edema due to vasogenic/hemodynamic abnormalities Venous duplex bilateral lower extremity revealed no evidence of acute DVT. Arterial duplex revealed substantial peripheral arterial disease in the bilateral lower extremity from the right distal SFA and left mid SFA into the feet. Antibiotic provided as per ID recommendation. MRI revealed equivocal findings see above . ID specialist doubted osteomyelitis clinically. Patient remained afebrile, no leukocytosis . While in the hospital patient was on IV Vanco and cefepime and upon discharge changed to Augmentin and doxycycline to complete a total course of 14 days. IV Wound care for the ischemic ulcer on the left foot provided as per apparel merchandiser recommendation. Vascular surgeon seen and evaluated patient and recommended selective left leg angiogram to assess for revascularization. Antiplatelet and statin therapy continued. Pain management was addressed. Supportive care provided. Patient clinically stabilized and was ready for discharge home with home health services for wound care. FINAL DIAGNOSES: Diabetic ischemic ulcer left foot Status post TMA left foot with lateral stump wound necrosis Severe left foot rest pain Calcific multilevel arterial occlusive PAD Diabetes mellitus with hyperglycemia Diabetic neuropathy Hypertension Lactic acidosis -resolved Suspected COVID-19 infection -ruled out Smoker Anemia DISCHARGE MEDICATIONS: See Medication Reconciliation list. DISCHARGE INSTRUCTIONS: Patient was discharged home with home health services. Follow up with primary care provider in one week. Ira Maldonado NP Jan 06, 2020 12:33
--- NOTE | 2020-01-06 13:37 | NUR ---
*-* INSURANCE *-* UPDATED CLINICALS AND REVIEWS HAVE BEEN FAXED TO: [facility] ([facility]) P:[phone] F: [phone] ( FAX CLINICALS HERE AND TO [facility]UB[facility]ES) & [employer] AUTH# [id number] MITCH: [facility] P:[phone] Addendum: 01/06/20 at 1338 by LILLY FITZPATRICK CM DISCHARGE SUMMARY HAS BEEN FAXED
== END 2020-01-05 19:03 | disposition home health service (06) | DRG 420 ==
LOC: EDBD 09:09 → EMR 09:33 → 4E 10:04 → EDBEDREQ 10:50
DX: E11.621 Type 2 diabetes mellitus with foot ulcer (principal); N17.9 Acute kidney failure, unspecified; E87.2 Acidosis; I25.10 Atherosclerotic heart disease of native coronary artery without angina pectoris; L03.818 Cellulitis of other sites; G40.409 Other generalized epilepsy and epileptic syndromes, not intractable, without status epilepticus; Z79.84 Long term (current) use of oral hypoglycemic drugs; Z79.82 Long term (current) use of aspirin; Z89.432 Acquired absence of left foot; E11.40 Type 2 diabetes mellitus with diabetic neuropathy, unspecified; E11.65 Type 2 diabetes mellitus with hyperglycemia; I73.9 Peripheral vascular disease, unspecified; I10 Essential (primary) hypertension; D64.9 Anemia, unspecified; Z87.891 Personal history of nicotine dependence
CPT/HCPCS: 36415; 71045; 80048; 80053; 80202; 82550; 82962; 83605; 83735; 84100; 85007; 85025; 85610; 85651; 85730; 86140; 87040; 87070; 87205; 93306; 93925; 93970; 96365; 96366; 96368; 96375; 99285; J1815

== ENCOUNTER 2020-05-08 14:25 | Inpatient (IN) | payer MEDICARE, MEDICAID ==
[~2020-05-08] VITALS: Ht 180.3 cm; Wt 66.7 kg
[~2020-05-08 14:25] MED LIST changes: +AUGMENTIN 875-1 EAC1 ORAL; +CEFEPIME-D2 GM/50 ML IVPB; +CLOPIDOGREL75 MG ORAL; +DOXYCYCLINE MO100 MG ORAL; +GLIPIZIDE5 MG ORAL; +PAMELOR10 MG ORAL; +PANTOPRAZOLE SO40 MG ORAL; +VANCOMYCIN1 GM/2002 IV; +ZOLPIDEM TARTRAT5 MG ORAL
--- NOTE | 2020-05-08 14:44 | NUR ---
ED Nurse Note: Pt arrived with RA 894 due to left foot pain x 3 weeks. pt reports he was prescribed antibiotics but does not recall what it was. pt is aox3. pt appears calm and comfortable
[2020-05-08 14:45] VITALS: BP 134/76
--- NOTE | 2020-05-08 14:52 | NUR ---
ED Nurse Note: Pt has complete amputation of toes on left foot. left foot ulcer present.
--- NOTE | 2020-05-08 14:57 | Emergency Room Report ---
History of Present Illness General Chief Complaint: Pain Source: Patient Present Illness HPI 70-year-old male presents with left foot pain, history of foot ulcer, diabetes, patient endorses a sharp deep pain no aggravating factor severity is moderate, constant no alleviating factors no fevers no chills patient presents for evaluation and treatment no pus or drainage from the site Allergies: Coded Allergies: No Known Allergies (Unverified , 05/07/14) COVID-19 Screening Contact w/high risk pt: No Recent Travel to affected area: No Experienced COVID-19 symptoms?: No COVID-19 Testing performed LOCAL TANKER TRUCK DRIVER: No Patient History Past Medical History: see triage record Social History: Reports: smoking Reviewed Nursing Documentation: PMH: Agreed; PSxH: Agreed Nursing Documentation-PMH Hx Cardiac Problems: No Hx Hypertension: Yes Hx Diabetes: Yes Hx Cancer: No Hx Gastrointestinal Problems: No Hx Neurological Problems: Yes Hx Cerebrovascular Accident: Yes Hx Transient Ischemic Attacks: No Hx Dementia: No Hx Alzheimer's Disease: No Hx Parkinson's Disease: No Hx Meningitis: No Hx Encephalitis: No Hx Seizures: Yes Hx Epilepsy: No Hx Multiple Sclerosis: No Hx Cerebral Palsy: No Hx Amyotrophic Lat Sclerosis: No Hx Guillian-[place] Syndrome: No Hx Paralysis: No Hx Peripheral Neuropathy: No 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 Hx Head Trauma: No Hx Traumatic Brain Injury: No Hx Memory Loss: No Hx Concentration Difficulty: No Hx Speech Problem: No Hx Tremors: No Hx Vertigo: No Hx Dizziness: Yes Hx Syncope: No Hx Headaches: Yes Hx Aphasia: No Hx Dysphasia: No Hx Numbness: No Hx Weakness: Yes - BLE Hx Fatigue: Yes Hx Neurologic Surgery: No Hx Brain Shunt: No Review of Systems All Other Systems: negative except mentioned in HPI Physical Exam Vital Signs Date Time Temp Pulse Resp B/P (MAP) Pulse Ox O2 Delivery O2 Flow Rate FiO2 05/08/20 14:33 97.5 80 18 134/76 (95) 99 Room Air Sp02 EP Interpretation: reviewed, normal General Appearance: well appearing, no apparent distress, alert Head: normocephalic, atraumatic Eyes: bilateral eye PERRL, bilateral eye EOMI ENT: uvula midline, moist mucus membranes Neck: supple, thyroid normal, supple/symm/no masses Respiratory: lungs clear, no respiratory distress, no retraction, no accessory muscle use Cardiovascular #1: normal peripheral pulses, regular rate, rhythm, no edema, no gallop, no murmur Gastrointestinal: non tender, soft, no guarding, no rebound Musculoskeletal: normal inspection Neurologic: alert, oriented x3 Psychiatric: mood/affect normal Skin: warm/dry, other - Left foot: 2+ PT DP fires EHL, cap refill less than 3 seconds, left open ulcer lateral foot measuring 1 x 1 cm Medical Decision Making Diagnostic Impression: Primary Impression: Osteomyelitis of ankle or foot, acute Qualified Codes: M86.172 - Other acute osteomyelitis, left ankle and foot ER Course 70-year-old male history of diabetes, diabetic foot ulcer presents with left foot pain, open ulcer noted, concerning for developing osteomyelitis, patient started on vancomycin patient admitted to Dr. Penn Laboratory Tests Test 05/08/20 14:55 White Blood Count 8.6 K/UL (4.8-10.8) Red Blood Count 4.37 M/UL (4.70-6.10) L Hemoglobin 12.6 G/DL (14.2-18.0) L Hematocrit 38.9 % (42.0-52.0) L Mean Corpuscular Volume 89 FL (80-99) Mean Corpuscular Hemoglobin 28.9 PG (27.0-31.0) Mean Corpuscular Hemoglobin Concent 32.4 G/DL (32.0-36.0) Red Cell Distribution Width 13.6 % (11.6-14.8) Platelet Count 273 K/UL (150-450) Mean Platelet Volume 6.1 FL (6.5-10.1) L Neutrophils (%) (Auto) 69.6 % (45.0-75.0) Lymphocytes (%) (Auto) 24.7 % (20.0-45.0) Monocytes (%) (Auto) 4.4 % (1.0-10.0) Eosinophils (%) (Auto) 0.4 % (0.0-3.0) Basophils (%) (Auto) 0.9 % (0.0-2.0) Erythrocyte Sedimentation Rate 45 MM/HR (0-20) H Prothrombin Time 10.8 SEC (9.30-11.50) Prothrombin Time INR 1.0 (0.9-1.1) Activated Partial Thromboplast Time 25 SEC (23-33) Sodium Level 137 MMOL/L (136-145) Potassium Level 4.3 MMOL/L (3.5-5.1) Chloride Level 104 MMOL/L (98-107) Carbon Dioxide Level 29 MMOL/L (21-32) Anion Gap 4 mmol/L (5-15) L Blood Urea Nitrogen 17 mg/dL (7-18) Creatinine 1.3 MG/DL (0.55-1.30) Estimated Glomerular Filtration Rate > 60 mL/min (>60) Glucose Level 172 MG/DL (74-106) H Lactic Acid Level 0.90 mmol/L (0.4-2.0) Calcium Level 9.4 MG/DL (8.5-10.1) Phosphorus Level 3.2 MG/DL (2.5-4.9) Magnesium Level 2.1 MG/DL (1.8-2.4) Total Bilirubin 0.4 MG/DL (0.2-1.0) Aspartate Amino Transferase (AST) 14 U/L (15-37) L Alanine Aminotransferase (ALT) 34 U/L (12-78) Alkaline Phosphatase 140 U/L (46-116) H C-Reactive Protein, Quantitative 1.1 mg/dL (0.00-0.90) H Total Protein 7.7 G/DL (6.4-8.2) Albumin 3.6 G/DL (3.4-5.0) Globulin 4.1 g/dL Albumin/Globulin Ratio 0.9 (1.0-2.7) L Microbiology Date/Time Source Procedure Growth Status 05/08/20 14:55 Nasopharynx SARS-CoV-2 RdRp Gene Assay - Final Complete EKG Diagnostic Results EKG Time: 15:07 EP Interpretation: NSR, rate 98, QTc 413, no acute ST elevations, normal axis Other X-Ray Diagnostic Results Other X-Ray Diagnostic Results : X-Ray ordered: Left foot # of Views/Limited Vs Complete: 3 View Indication: Pain EP Interpretation: Yes Interpretation: other - Old amputation seen, no obvious bone destruction Impression: Other - Old amputation seen, no obvious bone destruction Electronically Signed by: Donnell Rose MD Last Vital Signs Date Time Temp Pulse Resp B/P (MAP) Pulse Ox O2 Delivery O2 Flow Rate FiO2 05/08/20 14:45 97.5 88 18 134/76 99 Room Air Disposition: ADMITTED INPATIENT Condition: Stable Donnell Rose MD May 08, 2020 14:57
[2020-05-08] MEDS ORDERED: Morphine Sulfate 4mg/ml Inj (IV USE ONLY) IVP ONE (15:00)
[2020-05-08] MEDS ORDERED: Vancomycin 1 GM in NS 275 ML IV ONE (15:00)
--- NOTE | 2020-05-08 15:10 | NUR ---
ED Nurse Note: xray at bedside
[2020-05-08 15:32] LABS: BASOPHILS % (AUTO) 0.9 % (0.0-2.0); EOSINOPHILS % (AUTO) 0.4 % (0.0-3.0); HEMATOCRIT 38.9 % (42.0-52.0); HEMOGLOBIN 12.6 G/DL (14.2-18.0); LYMPHOCYTES % (AUTO) 24.7 % (20.0-45.0); MEAN CORPUSCULAR VOLUME 89 FL (80-99); MONOCYTES % (AUTO) 4.4 % (1.0-10.0); NEUTROPHILS % (AUTO) 69.6 % (45.0-75.0); PLATELET COUNT 273 K/UL (150-450); RED BLOOD COUNT 4.37 M/UL (4.70-6.10); RED CELL DISTRIBUTION WIDTH 13.6 % (11.6-14.8); WHITE BLOOD COUNT 8.6 K/UL (4.8-10.8)
[2020-05-08 15:52] LABS: ANION GAP 4 mmol/L (5-15); BLOOD UREA NITROGEN 17 mg/dL (7-18); CALCIUM 9.4 MG/DL (8.5-10.1); CARBON DIOXIDE 29 MMOL/L (21-32); CHLORIDE 104 MMOL/L (98-107); CREATININE 1.3 MG/DL (0.55-1.30); POTASSIUM 4.3 MMOL/L (3.5-5.1); SODIUM 137 MMOL/L (136-145)
[2020-05-08 15:57] LABS: ALANINE AMINOTRANSFERASE 34 U/L (12-78); ALBUMIN 3.6 G/DL (3.4-5.0); ALBUMIN/GLOBULIN RATIO 0.9 (1.0-2.7); ALKALINE PHOSPHATASE 140 U/L (46-116); ASPARTATE AMINO TRANSFERASE 14 U/L (15-37); BILIRUBIN,TOTAL 0.4 MG/DL (0.2-1.0); PHOSPHORUS 3.2 MG/DL (2.5-4.9)
[2020-05-08 16:30] VITALS: BP 128/73
--- NOTE | 2020-05-08 17:23 | Diagnostic Imaging Report ---
Indication: Pain, foot ulcer Technique: 3 views left foot Comparison: none Findings: Patient is status post transmetatarsal amputation. There is a wire in the soft tissues dorsal to the fifth metatarsal stump. No acute fractures. No definite osseous erosions or unusual periosteal reaction Impression: Postoperative changes, as described No definite acute abnormality. No plain radiographic evidence of acute osteomyelitis. Note, however, limited sensitivity of plain radiographs for such. Consider MRI or bone scan for better characterization if there is high clinical suspicion
--- NOTE | 2020-05-08 17:45 | NUR ---
ED Nurse Note: Telephone report given to HENRI Arias.
--- NOTE | 2020-05-08 17:46 | NUR ---
TRANSFER TO FLOOR: Patient transferred to [facility] as ordered, per ERMD . Report given to ELIESER ANG. Belongings given to pt. Family informed of transfer.
--- NOTE | 2020-05-08 17:55 | NUR ---
ED Nurse Note: Pt wants to place hernández in safe total of $282 in hernández placed in safey bag [phone]. cloth mercerizing supervisor unable to witness will endorse to receiving nurse
--- NOTE | 2020-05-08 18:06 | NUR ---
ED Nurse Note: Per housesup wait until she arrives and she will witness safety deposit prior to transfer to [facility].
[2020-05-08 18:20] VITALS: BP 156/92
--- NOTE | 2020-05-08 18:20 | NUR ---
NURSE NOTES: received patient from ED, came on [facility], with left foot wound. Diagnosis Diabetic Foot Ulcer. Patient signed belongings list, came with all belongings listed. Patient agreed to keep money hernández in the safe. Patient very hungry and complaint severe pain 10/10 aching pain at left foot, obtained order for 1x dose morphine IV. Patient has RFA IV access saline locked. Stable VS, bed locked at the lowest position possible, call light within easy reach, side rails upx2, on bed alarm.
[2020-05-08] MEDS ORDERED: Morphine Sulfate 4mg/ml Inj (IV USE ONLY) IVP SCH (18:45)
--- NOTE | 2020-05-08 19:31 | NUR ---
NURSE NOTES: Received report from ELIESER Haas. AAO x 3-4, on room air. IV site intact and patent. Pt is fall risk and has DM foot ulcer on L foot. Bed locked, lowest position alarm on, side rails up, call light within reach. Will continue to monitor. Addendum: 05/08/20 at 1934 by SUNNY MENDOZA RN RN Left message Dr. Penn for admission orders.
--- NOTE | 2020-05-08 19:59 | NUR ---
NURSE HAND-OFF: Important Events on Shift:[] Patient Status: [] Diet: [reg] Pending Orders: [admitting orders] Pending Results/Labs:[] Pending MD notification:[] Latest Vital Signs: Temperature 97.2 , Pulse 99 , B/P 156 /92 , Respiratory Rate 22 , O2 SAT 97 , Room Air, O2 Flow Rate . Vital Sign Comment: [] Latest Manzanares Fall Score: 45 Fall Risk: Safety Measures: Call light , Bed Alarm , Side Rails , Bed position . Fall Precautions: Report given to [ELIESER Marr].
[2020-05-08 20:00] VITALS: BP 134/81
--- NOTE | 2020-05-08 21:30 | NUR ---
NURSE NOTES: Received admission orders from Dr. Penn. Order carried out.
[2020-05-08] MEDS: Piperacillin/Tazobactam 3.375 GM in NS 110 ML IVPB SCH (22:33)
[2020-05-09] VITALS: BP 135/85
[2020-05-09] MEDS: Morphine Sulfate 2mg/ml Inj(IV/IM USE ONLY) IVP PRN ×4 (01:40→20:23)
--- NOTE | 2020-05-09 02:36 | NUR ---
HAND-OFF: Report given to ELIESER Vee.
[2020-05-09] MEDS: Piperacillin/Tazobactam 3.375 GM in NS 110 ML IVPB SCH ×3 (05:01→21:45)
[2020-05-09] MEDS: NovoLOG Insulin Flexpen SUBQ SCH ×4 (06:22→21:00)
--- NOTE | 2020-05-09 06:54 | NUR ---
CASE MANAGEMENT:INITIAL REVIEW 70 YR OLD MALE BIBA FROM HOME CC;PAIN SI;DIABETIC FOOT ULCER. 97.5 99 22 156/92 97% ON RA BG 172 ALP 140 CRP 1.1 COVID RAPID - NEGATIVE LEFT FOOT XRAY - Postoperative changes, as described No definite acute abnormality. No plain radiographic evidence of acute osteomyelitis. Note, however, limited sensitivity of plain radiographs for such. Consider MRI or bone scan for better characterization if there is high clinical suspicion IS;VANCOMYCIN IV MORPHINE IV ZOFRAN IV ADMITTED TO MED SURG MED SURG STATUS DCP;FROM HOME
--- NOTE | 2020-05-09 07:29 | NUR ---
HAND-OFF: Report given to ELIESER Wilson.
--- NOTE | 2020-05-09 07:34 | NUR ---
NURSE NOTES: Report received from ELIESER Pérez. Patient observed to be awake, alert and oriented x4. Lying in bed with HOB elevated, currently on room air, no s/sx of SOB/Distress, no c/o any pain or discomfort. Iv site located on LFA gauge 18 asymptomatic, inplace and intact. Bed placed on lowest and locked, call light placed within reach and will continue to monitor for any changes in condition.
[2020-05-09 08:00] VITALS: BP 133/76
[2020-05-09] MEDS: Heparin 5000 units/ml inj SUBQ SCH ×2 (08:26→20:31)
--- NOTE | 2020-05-09 09:52 | History and Physical ---
History of Present Illness General Date patient seen: May 09, 2020 Time patient seen: 08:00 Reason for Hospitalization: Pain Present Illness HPI 70 years old aam care of pain for non healing ulcer lt foot with draining for 2 months interctable pain no fever Allergies: Coded Allergies: No Known Allergies (Unverified , 05/07/14) COVID-19 Screening Contact w/high risk pt: No Recent Travel to affected area: No Experienced COVID-19 symptoms?: No Medication History Scheduled Amoxicillin/Potassium Clav 875-125* (Augmentin 875-125 Tablet*), 1 TAB ORAL TWICE A DAY, (Reported) Aspirin Ec* (Aspirin Ec*), 81 MG PO DAILY, (Reported) Aspirin* (Aspir-Low*), 81 MG ORAL BEDTIME, (Reported) Atorvastatin Calcium* (Lipitor*), 20 MG ORAL BEDTIME Carvedilol* (Carvedilol*), 6.25 MG PO BID, (Reported) Carvedilol* (Carvedilol*), 6.25 MG ORAL BID, (Reported) Clopidogrel* (Clopidogrel*), Unknown Dose ORAL DAILY, (Reported) Dextran 70/Hypromellose (Artificial Tears Eye Drops*), 1 DROP BOTH EYES QID Doxycycline Monohydrate* (Doxycycline Monohydrate*), 100 MG ORAL TWICE A DAY, (Reported) Glipizide* (Glipizide*), Unknown Dose ORAL BIDAC, (Reported) Isosorbide Mononitrate (Isosorbide Mononitrate Er), 30 MG PO DAILY, (Reported) Metformin Hcl* (Metformin Hcl*), 1,000 MG PO BID, (Reported) Nortriptyline Hcl* (Pamelor*), Unknown Dose ORAL DAILY, (Reported) Pantoprazole* (Pantoprazole*), 40 MG ORAL DAILY, (Reported) Phenytoin Sodium Extended* (Dilantin*), 300 MG PO HS, (Reported) Phenytoin Sodium Extended* (Dilantin*), 200 MG ORAL TWICE A DAY Spironolactone* (Aldactone*), 25 MG PO DAILY, (Reported) Spironolactone* (Spironolactone*), 25 MG ORAL DAILY, (Reported) Terazosin HCl (Terazosin HCl), 5 MG PO BEDTIME, (Reported) [Cyproheptadine Hcl], 4 MG ORAL THREE TIMES A DAY Scheduled PRN Hydrocodone Bit/Acetaminophen 5-325* ([place] 5-325*), 1 TAB ORAL Q6H PRN for For Pain Ibuprofen (Motrin), 600 MG ORAL Q8H PRN for For Pain Zolpidem Tartrate* (Zolpidem Tartrate*), 5 MG ORAL BEDTIME PRN for Insomnia, (Reported) Miscellaneous Medications Heparin Sod/Dextrose* (Heparin-D5w 25,000 Unit/500 Ml*), 22 UNIT IV, (Reported) Patient History Healthcare decision maker Resuscitation status Advanced Directive on File Physical Exam General Appearance: alert Lines, tubes and drains: peripheral HEENT: PERRL Neck: supple Respiratory/Chest: normal breath sounds Cardiovascular/Chest: regular rhythm Abdomen: non tender, soft Extremities: other - lt foot amputation with non healing ulcer Last 24 Hour Vital Signs Date Time Temp Pulse Resp B/P (MAP) Pulse Ox O2 Delivery O2 Flow Rate FiO2 05/09/20 02:10 97.2 05/09/20 00:00 97.3 89 20 135/85 (102) 93 05/08/20 22:00 Room Air 05/08/20 20:00 97.2 94 20 134/81 (98) 93 05/08/20 19:20 97.2 05/08/20 18:20 97.2 99 22 156/92 (113) 97 05/08/20 18:19 97.8 82 15 122/76 98 Room Air 05/08/20 16:30 97.5 78 19 128/73 100 Room Air 05/08/20 15:53 97.5 05/08/20 14:45 97.5 88 18 134/76 99 Room Air 05/08/20 14:33 97.5 80 18 134/76 (95) 99 Room Air Intake and Output 05/08/20 05/09/20 19:00 07:00 Intake Total 150 ml Output Total 0 ml 600 ml Balance 0 ml -450 ml Intake Oral 150 ml Output Urine Total 0 ml 600 ml # Bowel Movements 1 Laboratory Tests Test 05/08/20 14:55 05/09/20 05:40 White Blood Count 8.6 K/UL (4.8-10.8) Red Blood Count 4.37 M/UL (4.70-6.10) L Hemoglobin 12.6 G/DL (14.2-18.0) L Hematocrit 38.9 % (42.0-52.0) L Mean Corpuscular Volume 89 FL (80-99) Mean Corpuscular Hemoglobin 28.9 PG (27.0-31.0) Mean Corpuscular Hemoglobin Concent 32.4 G/DL (32.0-36.0) Red Cell Distribution Width 13.6 % (11.6-14.8) Platelet Count 273 K/UL (150-450) Mean Platelet Volume 6.1 FL (6.5-10.1) L Neutrophils (%) (Auto) 69.6 % (45.0-75.0) Lymphocytes (%) (Auto) 24.7 % (20.0-45.0) Monocytes (%) (Auto) 4.4 % (1.0-10.0) Eosinophils (%) (Auto) 0.4 % (0.0-3.0) Basophils (%) (Auto) 0.9 % (0.0-2.0) Erythrocyte Sedimentation Rate 45 MM/HR (0-20) H Prothrombin Time 10.8 SEC (9.30-11.50) Prothromb Time International Ratio 1.0 (0.9-1.1) Activated Partial Thromboplast Time 25 SEC (23-33) Sodium Level 137 MMOL/L (136-145) Potassium Level 4.3 MMOL/L (3.5-5.1) Chloride Level 104 MMOL/L (98-107) Carbon Dioxide Level 29 MMOL/L (21-32) Anion Gap 4 mmol/L (5-15) L Blood Urea Nitrogen 17 mg/dL (7-18) Creatinine 1.3 MG/DL (0.55-1.30) Estimat Glomerular Filtration Rate > 60 mL/min (>60) Glucose Level 172 MG/DL (74-106) H Lactic Acid Level 0.90 mmol/L (0.4-2.0) Calcium Level 9.4 MG/DL (8.5-10.1) Phosphorus Level 3.2 MG/DL (2.5-4.9) Magnesium Level 2.1 MG/DL (1.8-2.4) Total Bilirubin 0.4 MG/DL (0.2-1.0) Aspartate Amino Transf (AST/SGOT) 14 U/L (15-37) L Alanine Aminotransferase (ALT/SGPT) 34 U/L (12-78) Alkaline Phosphatase 140 U/L (46-116) H C-Reactive Protein, Quantitative 1.1 mg/dL (0.00-0.90) H Total Protein 7.7 G/DL (6.4-8.2) Albumin 3.6 G/DL (3.4-5.0) Globulin 4.1 g/dL Albumin/Globulin Ratio 0.9 (1.0-2.7) L Random Vancomycin Level 3.1 ug/mL Microbiology Date/Time Source Procedure Growth Status 05/08/20 14:55 Nasopharynx SARS-CoV-2 RdRp Gene Assay - Final Complete Height (Feet): 5 Height (Inches): 11.00 Weight (Pounds): 155 Medications Current Medications Medications (Trade) Dose Ordered Sig/Mell Route PRN Reason Start Time Stop Time Status Last Admin Dose Admin Acetaminophen (Tylenol) 650 mg Q6H PRN ORAL Pain Scale (3-5) 05/08/20 21:45 06/07/20 21:44 Dextrose (Dextrose 50%) 25 ml Q30M PRN IV Hypoglycemia 05/08/20 21:45 08/06/20 21:44 Dextrose (Dextrose 50%) 50 ml Q30M PRN IV Hypoglycemia 05/08/20 21:45 08/06/20 21:44 Gabapentin (Neurontin) 600 mg BID ORAL 05/09/20 09:00 06/08/20 08:59 05/09/20 08:25 Heparin Sodium (Porcine) (Heparin 5000 units/ml) 5,000 units EVERY 12 HOURS SUBQ 05/09/20 09:00 06/23/20 08:59 05/09/20 08:26 Insulin Aspart (NovoLOG) BEFORE MEALS AND HS SUBQ 05/09/20 06:30 08/07/20 06:29 05/09/20 06:22 Morphine Sulfate (Morphine Sulfate) 2 mg Q6H PRN IVP Severe Pain (Pain Scale 7-10) 05/08/20 21:45 05/15/20 21:44 05/09/20 08:23 Piperacillin Sod/ Tazobactam Sod 3.375 gm/Sodium Chloride 110 ml @ 27.5 mls/hr EVERY 8 HOURS IVPB 05/08/20 23:00 05/13/20 22:59 05/09/20 05:01 Vancomycin HCl (Vanco pharmacy to dose) 1 ea DAILY PRN MISC Per rx protocol 05/08/20 21:45 06/07/20 21:44 Vancomycin HCl 750 mg/Sodium Chloride 250 ml @ 166.667 mls/hr Q12HR IVPB 05/09/20 09:00 05/14/20 08:59 05/09/20 09:48 Noble Penn MD May 09, 2020 09:52
--- NOTE | 2020-05-09 09:54 | General Progress Note ---
Subjective Allergies: Coded Allergies: No Known Allergies (Unverified , 05/07/14) Objective Last 24 Hour Vital Signs Date Time Temp Pulse Resp B/P (MAP) Pulse Ox O2 Delivery O2 Flow Rate FiO2 05/09/20 02:10 97.2 05/09/20 00:00 97.3 89 20 135/85 (102) 93 05/08/20 22:00 Room Air 05/08/20 20:00 97.2 94 20 134/81 (98) 93 05/08/20 19:20 97.2 05/08/20 18:20 97.2 99 22 156/92 (113) 97 05/08/20 18:19 97.8 82 15 122/76 98 Room Air 05/08/20 16:30 97.5 78 19 128/73 100 Room Air 05/08/20 15:53 97.5 05/08/20 14:45 97.5 88 18 134/76 99 Room Air 05/08/20 14:33 97.5 80 18 134/76 (95) 99 Room Air Intake and Output 05/08/20 05/09/20 19:00 07:00 Intake Total 150 ml Output Total 0 ml 600 ml Balance 0 ml -450 ml Intake Oral 150 ml Output Urine Total 0 ml 600 ml # Bowel Movements 1 Laboratory Tests 05/08/20 14:55: White Blood Count 8.6, Red Blood Count 4.37L, Hemoglobin 12.6L, Hematocrit 38.9L , Mean Corpuscular Volume 89, Mean Corpuscular Hemoglobin 28.9, Mean Corpuscular Hemoglobin Concent 32.4, Red Cell Distribution Width 13.6, Platelet Count 273, Mean Platelet Volume 6.1L, Neutrophils (%) (Auto) 69.6, Lymphocytes (%) (Auto) 24.7, Monocytes (%) (Auto) 4.4, Eosinophils (%) (Auto) 0.4, Basophils (%) (Auto) 0.9, Erythrocyte Sedimentation Rate 45H, Prothrombin Time 10.8, Prothromb Time International Ratio 1.0, Activated Partial Thromboplast Time 25, Sodium Level 137, Potassium Level 4.3, Chloride Level 104, Carbon Dioxide Level 29, Anion Gap 4L, Blood Urea Nitrogen 17, Creatinine 1.3, Estimat Glomerular Filtration Rate > 60, Glucose Level 172H, Lactic Acid Level 0.90, Calcium Level 9.4, Phosphorus Level 3.2, Magnesium Level 2.1, Total Bilirubin 0.4, Aspartate Amino Transf (AST/SGOT) 14L, Alanine Aminotransferase (ALT/SGPT) 34, Alkaline Phosphatase 140H, C-Reactive Protein, Quantitative 1.1H, Total Protein 7.7, Albumin 3.6, Globulin 4.1, Albumin/Globulin Ratio 0.9L 05/09/20 05:40: Random Vancomycin Level 3.1 Height (Feet): 5 Height (Inches): 11.00 Weight (Pounds): 155 Assessment/Plan Assessment/Plan: 1 cellulitis lt foot 2 non healing ulcer 3 pvd 4 dm type 2 5 dm neuropathy iv abx wound and podietarty consult cont ss, aacue check Noble Penn MD May 09, 2020 09:54
[2020-05-09 12:00] VITALS: BP 150/87
--- NOTE | 2020-05-09 12:27 | NUR ---
NURSE NOTES:WOUND ASSESSMENT PATIENT AWAKE, ALERT AND ABLE TO REPOSITION SELF IN BED. COMPLAINING OF BURNING/PAIN FROM LEFT FOOT. EXAMINATION PERMITTED PRIOR TO VASCULAR STUDIES. LEFT LATERAL FOOT/TMA- OPEN WOUND MEASURES 1.9X1.1X0.2CM. WOUND BED WITH 40% SLOUGH AND 60% PINK GRANULATION TISSUE. MINIMAL SERO-SANGUINEOUS DRAINAGE NOTED. FOOT AND LOWER LEG COOL TO TOUCH. RECOMMEND- VASCULA STUDIES OCCURRING TODAY. PODIATRY CONSULT. CLEAN WITH SALINE, PAT DRY. APPLY HYDROGEL, ADAPTIC AND COVER WITH OPTIFOAM DRESSING. REPLACE DAILY.
--- NOTE | 2020-05-09 14:29 | Consultation ---
History of Present Illness General Date patient seen: May 09, 2020 Reason for Hospitalization: Pain Present Illness HPI 70 year old male with multiple medical comorbidities presented [place] [place] pain. [place] [facility] [place]. since well but recently noted wound on lateral amputation flap and serous drainage with pain. surgery called to evaluate and assist with care. patient seen, chart reviewed, patient examined. has noted swelling and pain in left foot for a few days Allergies: Coded Allergies: No Known Allergies (Unverified , 05/07/14) COVID-19 Screening Contact w/high risk pt: No Recent Travel to affected area: No Experienced COVID-19 symptoms?: No Medication History Scheduled Amoxicillin/Potassium Clav 875-125* (Augmentin 875-125 Tablet*), 1 TAB ORAL TWICE A DAY, (Reported) Aspirin Ec* (Aspirin Ec*), 81 MG PO DAILY, (Reported) Aspirin* (Aspir-Low*), 81 MG ORAL BEDTIME, (Reported) Atorvastatin Calcium* (Lipitor*), 20 MG ORAL BEDTIME Carvedilol* (Carvedilol*), 6.25 MG PO BID, (Reported) Carvedilol* (Carvedilol*), 6.25 MG ORAL BID, (Reported) Clopidogrel* (Clopidogrel*), Unknown Dose ORAL DAILY, (Reported) Dextran 70/Hypromellose (Artificial Tears Eye Drops*), 1 DROP BOTH EYES QID Doxycycline Monohydrate* (Doxycycline Monohydrate*), 100 MG ORAL TWICE A DAY, (Reported) Glipizide* (Glipizide*), Unknown Dose ORAL BIDAC, (Reported) Isosorbide Mononitrate (Isosorbide Mononitrate Er), 30 MG PO DAILY, (Reported) Metformin Hcl* (Metformin Hcl*), 1,000 MG PO BID, (Reported) Nortriptyline Hcl* (Pamelor*), Unknown Dose ORAL DAILY, (Reported) Pantoprazole* (Pantoprazole*), 40 MG ORAL DAILY, (Reported) Phenytoin Sodium Extended* (Dilantin*), 300 MG PO HS, (Reported) Phenytoin Sodium Extended* (Dilantin*), 200 MG ORAL TWICE A DAY Spironolactone* (Aldactone*), 25 MG PO DAILY, (Reported) Spironolactone* (Spironolactone*), 25 MG ORAL DAILY, (Reported) Terazosin HCl (Terazosin HCl), 5 MG PO BEDTIME, (Reported) [Cyproheptadine Hcl], 4 MG ORAL THREE TIMES A DAY Scheduled PRN Hydrocodone Bit/Acetaminophen 5-325* ([place] 5-325*), 1 TAB ORAL Q6H PRN for For Pain Ibuprofen (Motrin), 600 MG ORAL Q8H PRN for For Pain Zolpidem Tartrate* (Zolpidem Tartrate*), 5 MG ORAL BEDTIME PRN for Insomnia, (Reported) Miscellaneous Medications Heparin Sod/Dextrose* (Heparin-D5w 25,000 Unit/500 Ml*), 22 UNIT IV, (Reported) Patient History History Provided By: Patient, Medical Record, PMD Healthcare decision maker SELF RESPONSIBLE Resuscitation status Advanced Directive on File Past Medical/Surgical History Past Medical/Surgical History: (1) Cellulitis (2) Osteomyelitis of ankle or foot, acute (3) Diabetic foot ulcer (4) Epileptic seizure, generalized (5) Diabetes mellitus (6) CAD (coronary artery disease) (7) Cardiomyopathy (8) PVD (peripheral vascular disease) (9) History of CVA (cerebrovascular accident) Review of Systems Review of Symptoms General ROS: no weight loss or fever Psychological ROS: no depression or mood changes, no memory loss Ophthalmic ROS: no visual changes or eye irritation ENT ROS: no nasal congestion, hearing loss, dizziness Allergy and Immunology ROS: no allergic symptoms or urticaria Hematological and Lymphatic ROS: no swollen glands, unusual bleeding or bruising Endocrine ROS: no polyuria, polydipsia, weight changes, temperature intolerance Respiratory ROS: no cough, shortness of breath, or wheezing Cardiovascular ROS: no chest pain or dyspnea on exertion Gastrointestinal ROS: denies abdominal pain, bright red blood in stool. Musculoskeletal ROS: no myalgias or arthralgias Neurological ROS: no TIA or stroke symptoms Dermatological ROS: no new or changing skin lesions, rashes or pruritis Physical Exam Physical Exam General appearance: alert, cooperative, no distress, appears stated age Head: Normocephalic, without obvious abnormality, atraumatic Eyes: conjunctivae/corneas clear. PERRL, EOM's intact. Fundi benign Throat: Lips, mucosa, and tongue normal. Teeth and gums normal Neck: supple, symmetrical, trachea midline, no adenopathy, thyroid: not enlarged, symmetric, no tenderness/mass/nodules, no carotid bruit and no JVD Lungs: clear to auscultation bilaterally Heart: regular rate and rhythm, S1, S2 normal, no murmur, click, rub or gallop Abdomen: soft, non-tender. Bowel sounds normal. No masses, no organomegaly Extremities: extremities see below Pulses: 2+ and symmetric Skin: Skin color, texture, turgor normal. No rashes or lesions Neurologic: Grossly normal Last 24 Hour Vital Signs Date Time Temp Pulse Resp B/P (MAP) Pulse Ox O2 Delivery O2 Flow Rate FiO2 05/09/20 12:00 97.7 84 18 150/87 (108) 98 05/09/20 09:00 Room Air 05/09/20 08:00 97.5 90 19 133/76 (95) 95 05/09/20 02:10 97.2 05/09/20 00:00 97.3 89 20 135/85 (102) 93 05/08/20 22:00 Room Air 05/08/20 20:00 97.2 94 20 134/81 (98) 93 05/08/20 19:20 97.2 05/08/20 18:20 97.2 99 22 156/92 (113) 97 05/08/20 18:19 97.8 82 15 122/76 98 Room Air 05/08/20 16:30 97.5 78 19 128/73 100 Room Air 05/08/20 15:53 97.5 05/08/20 14:45 97.5 88 18 134/76 99 Room Air 05/08/20 14:33 97.5 80 18 134/76 (95) 99 Room Air Intake and Output 05/08/20 05/09/20 19:00 07:00 Intake Total 150 ml Output Total 0 ml 600 ml Balance 0 ml -450 ml Intake Oral 150 ml Output Urine Total 0 ml 600 ml # Bowel Movements 1 Laboratory Tests Test 05/08/20 14:55 05/09/20 05:40 White Blood Count 8.6 K/UL (4.8-10.8) Red Blood Count 4.37 M/UL (4.70-6.10) L Hemoglobin 12.6 G/DL (14.2-18.0) L Hematocrit 38.9 % (42.0-52.0) L Mean Corpuscular Volume 89 FL (80-99) Mean Corpuscular Hemoglobin 28.9 PG (27.0-31.0) Mean Corpuscular Hemoglobin Concent 32.4 G/DL (32.0-36.0) Red Cell Distribution Width 13.6 % (11.6-14.8) Platelet Count 273 K/UL (150-450) Mean Platelet Volume 6.1 FL (6.5-10.1) L Neutrophils (%) (Auto) 69.6 % (45.0-75.0) Lymphocytes (%) (Auto) 24.7 % (20.0-45.0) Monocytes (%) (Auto) 4.4 % (1.0-10.0) Eosinophils (%) (Auto) 0.4 % (0.0-3.0) Basophils (%) (Auto) 0.9 % (0.0-2.0) Erythrocyte Sedimentation Rate 45 MM/HR (0-20) H Prothrombin Time 10.8 SEC (9.30-11.50) Prothromb Time International Ratio 1.0 (0.9-1.1) Activated Partial Thromboplast Time 25 SEC (23-33) Sodium Level 137 MMOL/L (136-145) Potassium Level 4.3 MMOL/L (3.5-5.1) Chloride Level 104 MMOL/L (98-107) Carbon Dioxide Level 29 MMOL/L (21-32) Anion Gap 4 mmol/L (5-15) L Blood Urea Nitrogen 17 mg/dL (7-18) Creatinine 1.3 MG/DL (0.55-1.30) Estimat Glomerular Filtration Rate > 60 mL/min (>60) Glucose Level 172 MG/DL (74-106) H Lactic Acid Level 0.90 mmol/L (0.4-2.0) Calcium Level 9.4 MG/DL (8.5-10.1) Phosphorus Level 3.2 MG/DL (2.5-4.9) Magnesium Level 2.1 MG/DL (1.8-2.4) Total Bilirubin 0.4 MG/DL (0.2-1.0) Aspartate Amino Transf (AST/SGOT) 14 U/L (15-37) L Alanine Aminotransferase (ALT/SGPT) 34 U/L (12-78) Alkaline Phosphatase 140 U/L (46-116) H C-Reactive Protein, Quantitative 1.1 mg/dL (0.00-0.90) H Total Protein 7.7 G/DL (6.4-8.2) Albumin 3.6 G/DL (3.4-5.0) Globulin 4.1 g/dL Albumin/Globulin Ratio 0.9 (1.0-2.7) L Random Vancomycin Level 3.1 ug/mL Microbiology Date/Time Source Procedure Growth Status 05/08/20 14:55 Nasopharynx SARS-CoV-2 RdRp Gene Assay - Final Complete Height (Feet): 5 Height (Inches): 11.00 Weight (Pounds): 155 Medications Current Medications Medications (Trade) Dose Ordered Sig/Mell Route PRN Reason Start Time Stop Time Status Last Admin Dose Admin Acetaminophen (Tylenol) 650 mg Q6H PRN ORAL Pain Scale (3-5) 05/08/20 21:45 06/07/20 21:44 05/09/20 11:45 Dextrose (Dextrose 50%) 25 ml Q30M PRN IV Hypoglycemia 05/08/20 21:45 08/06/20 21:44 Dextrose (Dextrose 50%) 50 ml Q30M PRN IV Hypoglycemia 05/08/20 21:45 08/06/20 21:44 Gabapentin (Neurontin) 600 mg BID ORAL 05/09/20 09:00 06/08/20 08:59 05/09/20 08:25 Heparin Sodium (Porcine) (Heparin 5000 units/ml) 5,000 units EVERY 12 HOURS SUBQ 05/09/20 09:00 06/23/20 08:59 05/09/20 08:26 Insulin Aspart (NovoLOG) BEFORE MEALS AND HS SUBQ 05/09/20 06:30 08/07/20 06:29 05/09/20 11:48 Morphine Sulfate (Morphine Sulfate) 2 mg Q6H PRN IVP Severe Pain (Pain Scale 7-10) 05/08/20 21:45 05/15/20 21:44 05/09/20 08:23 Piperacillin Sod/ Tazobactam Sod 3.375 gm/Sodium Chloride 110 ml @ 27.5 mls/hr EVERY 8 HOURS IVPB 05/08/20 23:00 05/13/20 22:59 05/09/20 05:01 Vancomycin HCl (Vanco pharmacy to dose) 1 ea DAILY PRN MISC Per rx protocol 05/08/20 21:45 06/07/20 21:44 Vancomycin HCl 750 mg/Sodium Chloride 250 ml @ 166.667 mls/hr Q12HR IVPB 05/09/20 09:00 05/14/20 08:59 05/09/20 09:48 Assessment/Plan Problem List: (1) Osteomyelitis of ankle or foot, acute Assessment & Plan: MRI ordered pending results ICD Codes: M86.179 - Other acute osteomyelitis, unspecified ankle and foot SNOMED: 337952588 Qualifiers: Qualified Codes: M86.172 - Other acute osteomyelitis, left ankle and foot (2) Cellulitis Assessment & Plan: abx as per ID keep leg elevated with pillows ICD Codes: L03.90 - Cellulitis, unspecified SNOMED: 902705020 (3) Diabetic foot ulcer ICD Codes: E11.621 - Type 2 diabetes mellitus with foot ulcer; L97.509 - Non- pressure chronic ulcer of other part of unspecified foot with unspecified severity SNOMED: 80515240, 814295179 (4) Epileptic seizure, generalized ICD Codes: G40.909 - Epilepsy, unspecified, not intractable, without status e pilepticus SNOMED: 85539257 (5) Diabetes mellitus ICD Codes: E11.9 - Type 2 diabetes mellitus without complications SNOMED: 75701610 (6) CAD (coronary artery disease) ICD Codes: I25.10 - Atherosclerotic heart disease of [place] coronary artery without angina pectoris SNOMED: 79143382 (7) Cardiomyopathy ICD Codes: I42.9 - Cardiomyopathy, unspecified SNOMED: 15017179 (8) PVD (peripheral vascular disease) Assessment & Plan: vascular consult placed ICD Codes: I73.9 - Peripheral vascular disease, unspecified SNOMED: 552394372 (9) History of CVA (cerebrovascular accident) ICD Codes: Z86.73 - Personal history of transient ischemic attack (TIA), and cerebral infarction without residual deficits SNOMED: 304610615 Josafat Narvaez May 09, 2020 14:29
[2020-05-09 16:00] VITALS: BP 147/98
--- NOTE | 2020-05-09 17:00 | Cardiology Report ---
APPROVED REPORT EKG Measurement Heart [id number] OR 108P12 [id number] <Conclusion> Sinus rhythm with short OR Moderate voltage criteria for LVH, may be normal variant Inferior infarct, age undetermined Abnormal ECG
--- NOTE | 2020-05-09 19:15 | NUR ---
NURSE NOTES: Received report from Katie RN, pt. is sitting upright in bed, awkae, alert and oriented. No sob noted. Denies any pain at this time. With bed in it's lowest position, with alarm on and locked. Will continue with plan of care.
--- NOTE | 2020-05-09 19:31 | NUR ---
NURSE HAND-OFF: Important Events on Shift:Unable to have MRI, arterial and venous duplex done due to left foot pain despite pain med Patient Status: stable Diet: regular Pending Orders: n/a Pending Results/Labs:n/a Pending MD notification:n/a Latest Vital Signs: Temperature 98.2 , Pulse 78 , B/P 147 /98 , Respiratory Rate 19 , O2 SAT 95 , Room Air, O2 Flow Rate . Vital Sign Comment: stable Latest [place] Fall Score: 45 Fall Risk: High Risk Safety Measures: Call light Within Reach, Bed Alarm Zone 1, Side Rails Side Rails x2, Bed position Low and Locked. Fall Precautions: Yellow Socks Yellow Gown Door Sign Patient Fall Education Report given to ELIESER Ron.
[2020-05-09 20:00] VITALS: BP 135/79
--- NOTE | 2020-05-09 20:35 | NUR ---
Pt. kept complaining of pain on left foot, 03/13 despite having his prn meds,pt. was moaning, facial grimacing, screaming and irritabilty. Called Dr. Penn and made aware, gave new orders and carried out. All meds given. Calls answered promptly. With dressing on left foot, dry and intact. Slept at short intervals. Complains of left foot pain and managed with prn meds. On continued ivatb of Vanco and Zosyn, without a/r noted. Voiding freely. BS checked and coverage given. Call light placed within reach. Will continue with plan of care.
[2020-05-09] MEDS: HYDROcodone/Acetamin 10/325 tab ORAL PRN (21:35)
--- NOTE | 2020-05-09 23:33 | Psych Consult Progress Note ---
Psychiatry Progress Note Psychiatry Progress Note Medications Current Medications Medications (Trade) Dose Ordered Sig/Mell Route PRN Reason Start Time Stop Time Status Last Admin Dose Admin Acetaminophen (Tylenol) 650 mg Q6H PRN ORAL Pain Scale (3-5) 05/08/20 21:45 06/07/20 21:44 05/09/20 11:45 Acetaminophen/ Hydrocodone Bitart ([place] 10/325) 1 tab Q4H PRN ORAL Pain Scale (6-10) 05/09/20 21:30 05/16/20 21:29 05/09/20 21:35 Dextrose (Dextrose 50%) 25 ml Q30M PRN IV Hypoglycemia 05/08/20 21:45 08/06/20 21:44 Dextrose (Dextrose 50%) 50 ml Q30M PRN IV Hypoglycemia 05/08/20 21:45 08/06/20 21:44 Gabapentin (Neurontin) 600 mg THREE TIMES A DAY ORAL 05/09/20 21:30 06/08/20 21:29 05/09/20 21:35 Heparin Sodium (Porcine) (Heparin 5000 units/ml) 5,000 units EVERY 12 HOURS SUBQ 05/09/20 09:00 06/23/20 08:59 05/09/20 20:31 Insulin Aspart (NovoLOG) BEFORE MEALS AND HS SUBQ 05/09/20 06:30 08/07/20 06:29 05/09/20 21:00 Morphine Sulfate (Morphine Sulfate) 2 mg Q4H PRN IVP Severe Pain (Pain Scale 7-10) 05/09/20 21:30 05/16/20 21:29 Piperacillin Sod/ Tazobactam Sod 3.375 gm/Sodium Chloride 110 ml @ 27.5 mls/hr EVERY 8 HOURS IVPB 05/08/20 23:00 05/13/20 22:59 05/09/20 21:45 Vancomycin HCl (Vanco pharmacy to dose) 1 ea DAILY PRN MISC Per rx protocol 05/08/20 21:45 06/07/20 21:44 Vancomycin HCl 750 mg/Sodium Chloride 250 ml @ 166.667 mls/hr Q12HR IVPB 05/09/20 09:00 05/14/20 08:59 05/09/20 20:22 Allergies: Coded Allergies: No Known Allergies (Unverified , 10/4/14) Objective Data Height (Feet): 5 Height (Inches): 11.00 Weight (Pounds): 155 General Appearance: alert Jose Raul Rodriguez MD May 09, 2020 23:33
[2020-05-10] VITALS: BP 132/76
[2020-05-10] MEDS: Morphine Sulfate 2mg/ml Inj(IV/IM USE ONLY) IVP PRN ×3 (00:40→09:27)
[2020-05-10] MEDS: HYDROcodone/Acetamin 10/325 tab ORAL PRN (01:41)
--- NOTE | 2020-05-10 03:15 | Consultation ---
DATE OF CONSULTATION: 05/09/2020 CONSULTING PHYSICIAN: Noble Penn M.D. REASON FOR CONSULTATION: Ulceration to the left foot. HISTORY OF PRESENT ILLNESS: This is a 70-year-old diabetic patient who is admitted to [facility] with ulceration to the left foot, status post transmetatarsal amputation. The patient was seen at [facility] where a transmetatarsal procedure was done. The patient was discharged stable. The patient currently denies any fever, chills, nausea, or vomiting. He states that he has painful foot and it is sensitive to touch. PAST MEDICAL HISTORY: Per Dr. Penn of peripheral arterial disease, osteomyelitis, cellulitis, diabetic foot infection, diabetic foot ulcer, transmetatarsal amputation, ischemic ulceration to the left foot. PHYSICAL EXAMINATION: VASCULAR: Dorsalis pedis and posterior tibial artery are nonpalpable. Capillary filling time is increased. Left foot is noted to be cooler to touch. NEUROLOGICAL: There is hypersensitivity upon examination to the left foot consistent with ischemic pain. MUSCULOSKELETAL: The patient is status post transmetatarsal amputation of the left foot. The ulceration site is noted to be well healed with the exception to the ulceration to the lateral aspect of the stump site. There is no dehiscence at the site of the incision. It is completely healed. DERMATOLOGICAL: Attention was directed to the left foot over the lateral dorsal aspect of the foot where an ulceration was identified. Ulceration is noted to be pink, dry with a very painful sensation upon examination, consistent with ischemic ulceration. There is no drainage, discharge, or purulent matter. There is periwound erythema. There is no cellulitis. No probing or undermining is appreciated. ASSESSMENT/PLAN: Diabetic patient with ischemic ulceration to the left foot. Order was written for a vascular consultation with Dr. Candelario for followup. Order was written for application of Xeroform to the area. The patient would be followed. Hugo Benson D.P.M DR: CLEMENT JOB#: [id number] CC:
[2020-05-10 04:00] VITALS: BP 126/75
[2020-05-10] MEDS: Piperacillin/Tazobactam 3.375 GM in NS 110 ML IVPB SCH ×3 (05:31→21:34)
[2020-05-10] MEDS: NovoLOG Insulin Flexpen SUBQ SCH ×4 (06:30→21:00)
[2020-05-10 06:35] LABS: BASOPHILS % (AUTO) 0.6 % (0.0-2.0); EOSINOPHILS % (AUTO) 1.2 % (0.0-3.0); HEMATOCRIT 36.7 % (42.0-52.0); HEMOGLOBIN 12.1 G/DL (14.2-18.0); LYMPHOCYTES % (AUTO) 25.7 % (20.0-45.0); MEAN CORPUSCULAR VOLUME 85 FL (80-99); NEUTROPHILS % (AUTO) 66.5 % (45.0-75.0); PLATELET COUNT 238 K/UL (150-450); RED BLOOD COUNT 4.31 M/UL (4.70-6.10); RED CELL DISTRIBUTION WIDTH 12.4 % (11.6-14.8); WHITE BLOOD COUNT 5.8 K/UL (4.8-10.8)
[2020-05-10 07:01] LABS: ALANINE AMINOTRANSFERASE 22 U/L (12-78); ALBUMIN 3.1 G/DL (3.4-5.0); ALBUMIN/GLOBULIN RATIO 0.8 (1.0-2.7); ALKALINE PHOSPHATASE 125 U/L (46-116); ANION GAP 8 mmol/L (5-15); ASPARTATE AMINO TRANSFERASE 14 U/L (15-37); BILIRUBIN,TOTAL 0.4 MG/DL (0.2-1.0); BLOOD UREA NITROGEN 14 mg/dL (7-18); CALCIUM 8.8 MG/DL (8.5-10.1); CARBON DIOXIDE 26 MMOL/L (21-32); CHLORIDE 101 MMOL/L (98-107); CREATININE 1.2 MG/DL (0.55-1.30); SODIUM 135 MMOL/L (136-145)
[2020-05-10 08:00] VITALS: BP 145/93
[2020-05-10] MEDS: Heparin 5000 units/ml inj SUBQ SCH ×3 (09:05→21:35)
[2020-05-10] MEDS ORDERED: Omnipaque 350 100ml vial INJ PRN ×2 (09:30)
--- NOTE | 2020-05-10 09:58 | NUR ---
RD ASSESSMENT & RECOMMENDATIONS SEE CARE ACTIVITY FOR COMPLETE ASSESSMENT DAILY ESTIMATED NEEDS: Needs based on dm, wound, / 64.8kg 25-35 kcals/kg 1128-0607 total kcals 1.25-1.5 g protein/kg 81-130 g total protein 25-30 mL/kg 0570-2083 total fluid mLs NUTRITION DIAGNOSIS: 1) Altered nutrition related lab values r/t diabetes as evidenced by elev elev POC glu (211-329), elev BG (172-216) 2) Increased prot intake needs R/T wound healing as evidenced by pt w/ left ischemic ulcer. CURRENT DIET: regular PO DIET RECOMMENDATIONS: CCHO MED/ LOW NA ADDITIONAL RECOMMENDATIONS: * Obtain a CALIBRATED bed scale wt for accurate CBW * Monitor BGs, consider long acting insulin for improved BG control (BGs 200's and 300's) * WORKERS' COMPENSATION CLAIMS EXAMINER eval for appropriate texture- h/o CVA * A1C for eval of BG control * Wound care: MVI x1, Vit C 250mg QD + BRANDI BID * Add GLUCERNA BID in b/w meals
[2020-05-10] MEDS ORDERED: LORazepam Inj 2mg/ml 1ml IV SCH ×2 (10:00)
--- NOTE | 2020-05-10 10:52 | NUR ---
Spoke to vascular lab: they are aware of arterial and venous duplex of bilateral lower extremities. They will inform us before procedure so that we can medicate the patient prior to procedure.
[2020-05-10] MEDS ORDERED: Heparin1,000 units/500ml Premix(Conc:2 units/ml) IV PRN (11:18)
[2020-05-10] MEDS ORDERED: Lidocaine 1% Plain 30 ml INJ PRN (11:18)
--- NOTE | 2020-05-10 11:28 | General Progress Note ---
Progress Note Progress Note Patient seen and examined Left foot rest pain with hx of left TMA wound ulcer Severe calcific arterial occlusive PAD HTN DM Non compliance Daily smoker 2+ femorals absent pop pedal pulses Left TMA wound ulcer necrosis+ no cellulitis Rec Leg duplex and CT angio Abx per ID Antiplatelet and statin therapy & DVT precautions Podiatry f/u Smoking abstinence Will schedule patient for selective left leg angiogram to assess for revascularization d/w pt at length and nurse at bedside Conrado Candelario MD May 10, 2020 11:28
--- NOTE | 2020-05-10 11:34 | Consultation ---
History of Present Illness General Date patient seen: May 10, 2020 Chief Complaint: Pain Present Illness Allergies: Coded Allergies: No Known Allergies (Unverified , 05/07/14) Medication History Scheduled Amoxicillin/Potassium Clav 875-125* (Augmentin 875-125 Tablet*), 1 TAB ORAL TWICE A DAY, (Reported) Aspirin Ec* (Aspirin Ec*), 81 MG PO DAILY, (Reported) Aspirin* (Aspir-Low*), 81 MG ORAL BEDTIME, (Reported) Atorvastatin Calcium* (Lipitor*), 20 MG ORAL BEDTIME Carvedilol* (Carvedilol*), 6.25 MG PO BID, (Reported) Carvedilol* (Carvedilol*), 6.25 MG ORAL BID, (Reported) Clopidogrel* (Clopidogrel*), Unknown Dose ORAL DAILY, (Reported) Dextran 70/Hypromellose (Artificial Tears Eye Drops*), 1 DROP BOTH EYES QID Doxycycline Monohydrate* (Doxycycline Monohydrate*), 100 MG ORAL TWICE A DAY, (Reported) Glipizide* (Glipizide*), Unknown Dose ORAL BIDAC, (Reported) Isosorbide Mononitrate (Isosorbide Mononitrate Er), 30 MG PO DAILY, (Reported) Metformin Hcl* (Metformin Hcl*), 1,000 MG PO BID, (Reported) Nortriptyline Hcl* (Pamelor*), Unknown Dose ORAL DAILY, (Reported) Pantoprazole* (Pantoprazole*), 40 MG ORAL DAILY, (Reported) Phenytoin Sodium Extended* (Dilantin*), 300 MG PO HS, (Reported) Phenytoin Sodium Extended* (Dilantin*), 200 MG ORAL TWICE A DAY Spironolactone* (Aldactone*), 25 MG PO DAILY, (Reported) Spironolactone* (Spironolactone*), 25 MG ORAL DAILY, (Reported) Terazosin HCl (Terazosin HCl), 5 MG PO BEDTIME, (Reported) [Cyproheptadine Hcl], 4 MG ORAL THREE TIMES A DAY Scheduled PRN Hydrocodone Bit/Acetaminophen 5-325* ([place] 5-325*), 1 TAB ORAL Q6H PRN for For Pain Ibuprofen (Motrin), 600 MG ORAL Q8H PRN for For Pain Zolpidem Tartrate* (Zolpidem Tartrate*), 5 MG ORAL BEDTIME PRN for Insomnia, (Reported) Miscellaneous Medications Heparin Sod/Dextrose* (Heparin-D5w 25,000 Unit/500 Ml*), 22 UNIT IV, (Reported) Patient History Healthcare decision maker SELF RESPONSIBLE Resuscitation status Advanced Directive on File Physical Exam Last 24 Hour Vital Signs Date Time Temp Pulse Resp B/P (MAP) Pulse Ox O2 Delivery O2 Flow Rate FiO2 05/10/20 09:57 98.4 05/10/20 09:00 Room Air 05/10/20 08:00 98.4 88 19 145/93 (110) 98 05/10/20 05:52 97.5 05/10/20 04:00 97.7 96 18 126/75 (92) 97 05/10/20 02:11 97.5 05/10/20 01:10 97.5 05/10/20 00:00 97.3 96 21 132/76 (94) 98 05/09/20 22:05 98.3 05/09/20 21:00 Room Air 05/09/20 20:53 98.2 05/09/20 20:00 98.3 83 22 135/79 (97) 96 05/09/20 16:00 98.2 78 19 147/98 (114) 95 05/09/20 12:00 97.7 84 18 150/87 (108) 98 Intake and Output0 05/09/20 05/10/20 19:00 07:00 Intake Total 600 ml 1200 ml Output Total 1000 ml 1400 ml Balance -400 ml -200 ml Intake Oral 600 ml 1200 ml Output Urine Total 1000 ml 1400 ml # Voids 5 Laboratory Tests Test 05/09/20 21:39 05/10/20 05:31 05/10/20 06:53 05/10/20 11:27 POC Whole Blood Glucose 231 MG/DL (74-106) H 211 MG/DL (74-106) H 295 MG/DL (74-106) H White Blood Count 5.8 K/UL (4.8-10.8) Red Blood Count 4.31 M/UL (4.70-6.10) L Hemoglobin 12.1 G/DL (14.2-18.0) L Hematocrit 36.7 % (42.0-52.0) L Mean Corpuscular Volume 85 FL (80-99) Mean Corpuscular Hemoglobin 28.1 PG (27.0-31.0) Mean Corpuscular Hemoglobin Concent 33.0 G/DL (32.0-36.0) Red Cell Distribution Width 12.4 % (11.6-14.8) Platelet Count 238 K/UL (150-450) Mean Platelet Volume 6.2 FL (6.5-10.1) L Neutrophils (%) (Auto) 66.5 % (45.0-75.0) Lymphocytes (%) (Auto) 25.7 % (20.0-45.0) Monocytes (%) (Auto) 6.0 % (1.0-10.0) Eosinophils (%) (Auto) 1.2 % (0.0-3.0) Basophils (%) (Auto) 0.6 % (0.0-2.0) Erythrocyte Sedimentation Rate 35 MM/HR (0-20) H Sodium Level 135 MMOL/L (136-145) L Potassium Level 4.0 MMOL/L (3.5-5.1) Chloride Level 101 MMOL/L (98-107) Carbon Dioxide Level 26 MMOL/L (21-32) Anion Gap 8 mmol/L (5-15) Blood Urea Nitrogen 14 mg/dL (7-18) Creatinine 1.2 MG/DL (0.55-1.30) Estimat Glomerular Filtration Rate > 60 mL/min (>60) Glucose Level 216 MG/DL (74-106) H Calcium Level 8.8 MG/DL (8.5-10.1) Total Bilirubin 0.4 MG/DL (0.2-1.0) Aspartate Amino Transf (AST/SGOT) 14 U/L (15-37) L Alanine Aminotransferase (ALT/SGPT) 22 U/L (12-78) Alkaline Phosphatase 125 U/L (46-116) H C-Reactive Protein, Quantitative 1.3 mg/dL (0.00-0.90) H Total Protein 6.8 G/DL (6.4-8.2) Albumin 3.1 G/DL (3.4-5.0) L Globulin 3.7 g/dL Albumin/Globulin Ratio 0.8 (1.0-2.7) L Height (Feet): 5 Height (Inches): 11.00 Weight (Pounds): 155 Medications Current Medications Medications (Trade) Dose Ordered Sig/Mell Route PRN Reason Start Time Stop Time Status Last Admin Dose Admin Acetaminophen (Tylenol) 650 mg Q6H PRN ORAL Pain Scale (3-5) 05/08/20 21:45 06/07/20 21:44 05/09/20 11:45 Acetaminophen/ Hydrocodone Bitart ([place] 10/325) 1 tab Q4H PRN ORAL Pain Scale (6-10) 05/09/20 21:30 05/16/20 21:29 05/10/20 01:41 Atorvastatin Calcium (Lipitor) 20 mg BEDTIME ORAL 05/10/20 21:00 08/08/20 20:59 Clopidogrel Bisulfate (Plavix) 75 mg QHS ORAL 05/11/20 21:00 06/10/20 20:59 Dextrose (Dextrose 50%) 25 ml Q30M PRN IV Hypoglycemia 05/08/20 21:45 08/06/20 21:44 Dextrose (Dextrose 50%) 50 ml Q30M PRN IV Hypoglycemia 05/08/20 21:45 08/06/20 21:44 Gabapentin (Neurontin) 600 mg THREE TIMES A DAY ORAL 05/09/20 21:30 06/08/20 21:29 05/10/20 09:04 Heparin Sodium (Porcine) (Heparin 5000 units/ml) 5,000 units Q8HR SUBQ 05/10/20 14:00 06/23/20 08:59 Heparin Sodium/ Sodium Chloride (Heparin 1000 units/500ml Premix) 1,000 unit ONCE PRN IV 05/10/20 11:18 05/10/20 15:00 Insulin Aspart (NovoLOG) BEFORE MEALS AND HS SUBQ 05/09/20 06:30 08/07/20 06:29 05/09/20 21:00 Iohexol (Omnipaque 350 100ml) 100 ml NOW PRN INJ Radiology Procedure 05/10/20 09:30 05/12/20 09:29 Iohexol (Omnipaque 350 100ml) 100 ml NOW PRN INJ Radiology Procedure 05/10/20 09:30 05/12/20 09:29 Lidocaine HCl (Xylocaine 1% 30ml) 30 ml ONCE PRN INJ PICC 05/10/20 11:18 05/10/20 23:59 Lorazepam (Ativan 2mg/ml 1ml) 1 mg ONCE IV 05/10/20 10:00 05/10/20 23:00 Lorazepam (Ativan 2mg/ml 1ml) 1 mg ONCE IV 05/10/20 10:00 05/10/20 23:00 Mirtazapine (Remeron) 7.5 mg BEDTIME PRN ORAL INSOMNIA 05/09/20 23:30 08/07/20 23:29 Morphine Sulfate (Morphine Sulfate) 2 mg Q4H PRN IVP Severe Pain (Pain Scale 7-10) 05/09/20 21:30 05/16/20 21:29 05/10/20 09:27 Piperacillin Sod/ Tazobactam Sod 3.375 gm/Sodium Chloride 110 ml @ 27.5 mls/hr EVERY 8 HOURS IVPB 05/08/20 23:00 05/13/20 22:59 05/10/20 05:31 Vancomycin HCl (Vanco pharmacy to dose) 1 ea DAILY PRN MISC Per rx protocol 05/08/20 21:45 06/07/20 21:44 Vancomycin HCl 750 mg/Sodium Chloride 250 ml @ 166.667 mls/hr Q12HR IVPB 05/09/20 09:00 05/14/20 08:59 05/10/20 09:04 Assessment/Plan Assessment/Plan: (1) Left LE pain (2) H/O Left LE partial foot amputation (3) Non healing ulcer (4) Peripheral neuropathy seen dictated Dimitry Plaza May 10, 2020 11:34
[2020-05-10] MEDS ORDERED: HYDROcodone/Acetamin 10/325 tab ORAL PRN (11:42)
[2020-05-10 12:00] VITALS: BP 140/88
--- NOTE | 2020-05-10 12:53 | NUR ---
NURSE NOTES: PT EDUCATED ON ORDER FOR CT ANGIOGRAM FOR BLE. PT DENIES ALLERGY TO CONTRAST OR SHELLFISH. PT SIGNED CONTRAST INJECTION CONSENT FORM.
--- NOTE | 2020-05-10 12:55 | General Progress Note ---
Subjective Date patient seen: May 10, 2020 Constitutional: Reports: weakness Allergies: Coded Allergies: No Known Allergies (Unverified , 05/07/14) Subjective c/o pain on foot Objective Last 24 Hour Vital Signs Date Time Temp Pulse Resp B/P (MAP) Pulse Ox O2 Delivery O2 Flow Rate FiO2 05/10/20 12:00 98.2 85 19 140/88 (105) 98 05/10/20 09:57 98.4 05/10/20 09:00 Room Air 05/10/20 08:00 98.4 88 19 145/93 (110) 98 05/10/20 05:52 97.5 05/10/20 04:00 97.7 96 18 126/75 (92) 97 05/10/20 02:11 97.5 05/10/20 01:10 97.5 05/10/20 00:00 97.3 96 21 132/76 (94) 98 05/09/20 22:05 98.3 05/09/20 21:00 Room Air 05/09/20 20:53 98.2 05/09/20 20:00 98.3 83 22 135/79 (97) 96 05/09/20 16:00 98.2 78 19 147/98 (114) 95 Intake and Output 05/09/20 05/10/20 18:59 06:59 Intake Total 600 ml 1200 ml Output Total 1000 ml 1400 ml Balance -400 ml -200 ml Intake Oral 600 ml 1200 ml Output Urine Total 1000 ml 1400 ml # Voids 5 Laboratory Tests 05/09/20 21:39: POC Whole Blood Glucose 231H 05/10/20 05:31: White Blood Count 5.8, Red Blood Count 4.31L, Hemoglobin 12.1L, Hematocrit 36.7L , Mean Corpuscular Volume 85, Mean Corpuscular Hemoglobin 28.1, Mean Corpuscular Hemoglobin Concent 33.0, Red Cell Distribution Width 12.4, Platelet Count 238, Mean Platelet Volume 6.2L, Neutrophils (%) (Auto) 66.5, Lymphocytes (%) (Auto) 25.7, Monocytes (%) (Auto) 6.0, Eosinophils (%) (Auto) 1.2, Basophils (%) (Auto) 0.6, Erythrocyte Sedimentation Rate 35H, Sodium Level 135L, Potassium Level 4.0, Chloride Level 101, Carbon Dioxide Level 26, Anion Gap 8, Blood Urea Nitrogen 14, Creatinine 1.2, Estimat Glomerular Filtration Rate > 60, Glucose Level 216H, Calcium Level 8.8, Total Bilirubin 0.4, Aspartate Amino Transf (AST/SGOT) 14L, Alanine Aminotransferase (ALT/SGPT) 22, Alkaline Phosphatase 125H, C-Reactive Protein, Quantitative 1.3H, Total Protein 6.8, Albumin 3.1L, Globulin 3.7, Albumin/Globulin Ratio 0.8L 05/10/20 06:53: POC Whole Blood Glucose 211H 05/10/20 11:27: POC Whole Blood Glucose 295H Height (Feet): 5 Height (Inches): 11.00 Weight (Pounds): 155 General Appearance: no apparent distress EENT: PERRL/EOMI Neck: supple Cardiovascular: normal rate Respiratory/Chest: normal breath sounds Abdomen: soft Extremities: non-tender Assessment/Plan Assessment/Plan: 1 cellulitis lt foot 2 non healing ulcer 3 pvd 4 dm type 2 5 dm neuropathy iv abx wound and podietarty consult cont ss, aacue check pain management consult Noble Penn MD May 10, 2020 12:55
[2020-05-10] MEDS: Morphine Sulfate 4mg/ml Inj (IV USE ONLY) IVP PRN ×2 (13:45→21:34)
--- NOTE | 2020-05-10 14:05 | NUR ---
RADIOLOGY DEPT., CHEST X-RAY COMPLETED.-P.DYE
--- NOTE | 2020-05-10 14:12 | Diagnostic Imaging Report ---
Indication: Cough Technique: One view of the chest Comparison: 12/22/2019 Findings: Inspiration is suboptimal. Aorta is tortuous and ectatic. The lungs and pleural spaces are clear. The heart size is normal. Findings are unchanged Impression: No acute process
--- NOTE | 2020-05-10 14:32 | NUR ---
CASE MANAGEMENT:REVIEW SI;LT FOOT NON-HEALING ULCER. LT FOOT CELLULITIS. 98.4 96 19 145/96 97% ON RA NA 135 BG 295 ALP 125 CRP 1.3 IS;MORPHINE SULFATE IV Q6 PRN GABAPENTIN PO TID VANCOMYCIN IV Q12 ZOSYN IV Q8 INSULIN NOVOLOG SUBQ BID MED SURG STATUS DCP;FROM HOME PLAN; CT ANGIOGRAM PODIATRY FOLLOW UP CONT ABX
--- NOTE | 2020-05-10 14:48 | NUR ---
INSURANCE CLINICALS AND REVIEW FAXED TO [facility] P: [phone] F: [phone] [id number]
--- NOTE | 2020-05-10 14:48 | Cardiology Report ---
APPROVED REPORT EXAM: Two-dimensional and M-mode echocardiogram with Doppler and color Doppler. INDICATION PRE-OP M-Mode DIMENSIONS IVSd1.4 (0.7-1.1cm)Left Atrium (MM)2.9 (1.6-4.0cm) LVDd4.4 (3.5-5.6cm)Aortic Root2.9 (2.0-3.7cm) PWd1.5 (0.7-1.1cm)Aortic Cusp Exc.1.6 (1.5-2.0cm) IVSs2.1 cm LVDs2.6 (2.5-4.0cm) PWs1.5 cm <Conclusion> Technically difficult study due to poor windows & pts pain. Left ventricular ejection fraction estimated to be 65 %. Mild left ventricular hypertrophy. No evidence of pericardial fat or effusion. All other cardiac chamber sizes are within normal limits. Moderate calcification of aortic valve with adequate cusp excursion. Moderate thickening of mitral valve leaflets with normal excursion. Mitral annulus and aortic root calcification. Pulmonic valve not well visualized. Normal tricuspid valve structure. IVC at normal size with physiologic collapse. A color flow and spectral Doppler study was performed and revealed: No aortic insufficiency. Trace mitral regurgitation. Mitral diastolic velocities suggest reduced left ventricular relaxation c/w mild LV diastolic dysfunction (Grade I ). Trace tricuspid regurgitation. Tricuspid systolic velocities suggests peak right ventricular systolic pressure of 18 mmHg. Mild pulmonic regurgitation present.
[2020-05-10 16:00] VITALS: BP 136/83
--- NOTE | 2020-05-10 17:32 | Surgery Progress Note ---
Surgery Progress Note Subjective Symptoms: improved Additional Comments no acute events podiatry input noted and appreciated no n/v/f/c Objective Last 24 Hour Vital Signs Date Time Temp Pulse Resp B/P (MAP) Pulse Ox O2 Delivery O2 Flow Rate FiO2 05/10/20 17:06 85 19 140/88 98 05/10/20 16:00 98.2 90 19 136/83 (100) 98 05/10/20 12:00 98.2 85 19 140/88 (105) 98 05/10/20 09:57 98.4 05/10/20 09:00 Room Air 05/10/20 08:00 98.4 88 19 145/93 (110) 98 05/10/20 05:52 97.5 05/10/20 04:00 97.7 96 18 126/75 (92) 97 05/10/20 02:11 97.5 05/10/20 01:10 97.5 05/10/20 00:00 97.3 96 21 132/76 (94) 98 05/09/20 22:05 98.3 05/09/20 21:00 Room Air 05/09/20 20:53 98.2 05/09/20 20:00 98.3 83 22 135/79 (97) 96 I&O Intake and Output 05/09/20 05/10/20 19:00 07:00 Intake Total 600 ml 1200 ml Output Total 1000 ml 1400 ml Balance -400 ml -200 ml Intake Oral 600 ml 1200 ml Output Urine Total 1000 ml 1400 ml # Voids 5 Dressing: dry Wound: clean Cardiovascular: RSR Respiratory: clear Abdomen: soft, non-tender, present bowel sounds Extremities: tenderness, no edema, no cyanosis, other Laboratory Tests Test 05/09/20 21:39 05/10/20 05:31 05/10/20 06:53 05/10/20 11:27 POC Whole Blood Glucose 231 MG/DL (74-106) H 211 MG/DL (74-106) H 295 MG/DL (74-106) H White Blood Count 5.8 K/UL (4.8-10.8) Red Blood Count 4.31 M/UL (4.70-6.10) L Hemoglobin 12.1 G/DL (14.2-18.0) L Hematocrit 36.7 % (42.0-52.0) L Mean Corpuscular Volume 85 FL (80-99) Mean Corpuscular Hemoglobin 28.1 PG (27.0-31.0) Mean Corpuscular Hemoglobin Concent 33.0 G/DL (32.0-36.0) Red Cell Distribution Width 12.4 % (11.6-14.8) Platelet Count 238 K/UL (150-450) Mean Platelet Volume 6.2 FL (6.5-10.1) L Neutrophils (%) (Auto) 66.5 % (45.0-75.0) Lymphocytes (%) (Auto) 25.7 % (20.0-45.0) Monocytes (%) (Auto) 6.0 % (1.0-10.0) Eosinophils (%) (Auto) 1.2 % (0.0-3.0) Basophils (%) (Auto) 0.6 % (0.0-2.0) Erythrocyte Sedimentation Rate 35 MM/HR (0-20) H Sodium Level 135 MMOL/L (136-145) L Potassium Level 4.0 MMOL/L (3.5-5.1) Chloride Level 101 MMOL/L (98-107) Carbon Dioxide Level 26 MMOL/L (21-32) Anion Gap 8 mmol/L (5-15) Blood Urea Nitrogen 14 mg/dL (7-18) Creatinine 1.2 MG/DL (0.55-1.30) Estimat Glomerular Filtration Rate > 60 mL/min (>60) Glucose Level 216 MG/DL (74-106) H Calcium Level 8.8 MG/DL (8.5-10.1) Total Bilirubin 0.4 MG/DL (0.2-1.0) Aspartate Amino Transf (AST/SGOT) 14 U/L (15-37) L Alanine Aminotransferase (ALT/SGPT) 22 U/L (12-78) Alkaline Phosphatase 125 U/L (46-116) H C-Reactive Protein, Quantitative 1.3 mg/dL (0.00-0.90) H Total Protein 6.8 G/DL (6.4-8.2) Albumin 3.1 G/DL (3.4-5.0) L Globulin 3.7 g/dL Albumin/Globulin Ratio 0.8 (1.0-2.7) L Test 05/10/20 16:21 POC Whole Blood Glucose 284 MG/DL (74-106) H Plan Problems: (1) Osteomyelitis of ankle or foot, acute Assessment & Plan: MRI ordered pending results Patient is status post transmetatarsal amputation. There is a wire in the soft tissues dorsal to the fifth metatarsal stump. No acute fractures. No definite osseous erosions or unusual periosteal reaction Impression: Postoperative changes, as described No definite acute abnormality. No plain radiographic evidence of acute osteomyelitis. Note, however, limited sensitivity of plain radiographs for such. Consider MRI or bone scan for better characterization if there is high clinical suspicion (2) Cellulitis Assessment & Plan: abx as per ID keep leg elevated with pillows (3) Diabetic foot ulcer (4) Epileptic seizure, generalized (5) Diabetes mellitus (6) CAD (coronary artery disease) (7) Cardiomyopathy (8) PVD (peripheral vascular disease) Assessment & Plan: vascular consult placed (9) History of CVA (cerebrovascular accident) Josafat Narvaez May 10, 2020 17:32
--- NOTE | 2020-05-10 19:05 | NUR ---
Received report from Huber and Bora MON. Pt. is sitting up on bed, awake, alert and verbally responsive. No sob noted. Denies any pain at this time. With call light within reach. With bed in it's lowest position, with alarm on and locked. Will continue to monitor pt.
--- NOTE | 2020-05-10 19:25 | NUR ---
NURSE HAND-OFF: Important Events on Shift:CT scan done, morphine increased to 4mg Q6h. ativan 1mg IV given before procedure (arterial & venous duplex) Patient Status: stable Diet: ccho Pending Orders: MRI of left foot Pending Results/Labs:n/a Pending MD notification:n/a Latest Vital Signs: Temperature 98.2 , Pulse 85 , B/P 140 /88 , Respiratory Rate 19 , O2 SAT 98 , Room Air, O2 Flow Rate . Vital Sign Comment: stable Latest Manzanares Fall Score: 45 Fall Risk: High Risk Safety Measures: Call light Within Reach, Bed Alarm Zone 1, Side Rails Side Rails x2, Bed position Low and Locked. Fall Precautions: Yellow Socks Yellow Gown Door Sign Patient Fall Education Report given to ELIESER Ron. Addendum: 05/10/20 at 1928 by Bigg Ma RN RN 2 unites of blood ordered: 1st unit still running. second unit to follow. ELIESER aware.
[2020-05-10 20:00] VITALS: BP 150/87
[2020-05-10] MEDS ORDERED: Dyna-Hex 2% Top Sol 2oz TOPIC SCH (20:00)
[2020-05-10] MEDS: Atorvastatin 20mg tab ORAL SCH (21:32)
[2020-05-11] VITALS: BP 136/71
--- NOTE | 2020-05-11 00:53 | NUR ---
All due meds given. Complained of left foot wound pain, due prn meds given and verbalized relief. On continued ivatb of Vanco and Zosyn, without a/r noted. Calls answered promptly. Wound dressing done on left foot, secured properly. Slept at short intervals. Able to void freely. BS checked, coverage given. Willcontinue to monitor pt.
--- NOTE | 2020-05-11 02:30 | Consultation ---
DATE OF CONSULTATION: 05/10/2020 PAIN MANAGEMENT CONSULTATION CONSULTING PHYSICIAN: Kimi Stanford MD REFERRING PHYSICIAN: Noble Penn MD PHYSICIAN WEB PROGRAMMER: LUKAS Dillard CHIEF COMPLAINT: Left lower extremity pain. HISTORY OF PRESENT ILLNESS: This is a 70-year-old male who is being seen on the Med/Surg floor of [facility] for initial pain management consultation. Patient is admitted under the care of Dr. Penn due to diabetic foot ulcer and left lower extremity pain, which is constant, acute on chronic pain, rating at 10/10. Describing the pain as a burning pain, increasing with touch and movement, and is reduced with medication. He had a partial foot amputation on 11/29/2018; however, reports that he was wearing a shoe that was rubbing in his foot and now has open ulcer on his left foot. He was started on morphine 2 mg IV every 4 hours and [place] 10/325 one tablet every 4 hours with minimal pain relief. Due to this, we were consulted so that the patient would have adequate pain control while here in the hospital. PAST MEDICAL HISTORY: Diabetes mellitus, osteomyelitis, diabetic foot ulcer, coronary artery disease, cardiomyopathy, peripheral vascular disease, and history of CVA. PAST SURGICAL HISTORY: Left [id number] partial amputation. SOCIAL HISTORY: Denies smoking, drinking, and IV drug abuse at this time. ALLERGIES: No known drug allergies. MEDICATIONS: Include Augmentin, aspirin, Lipitor, carvedilol, glipizide, metformin, Tylenol, pantoprazole, Dilantin, spironolactone, [place], Motrin, and Ambien. REVIEW OF SYSTEMS: Denies rash, fever, chills, sweating, dizziness, drowsiness, blurred vision, sore throat, or change in weight. No shortness of breath or chest pain. No nausea, vomiting, diarrhea, or blood in the stool or urine. No dysuria. PHYSICAL EXAMINATION: GENERAL: Alert, awake, and oriented. VITAL SIGNS: Blood pressure 145/93, heart rate is 88, saturation 98%, respiratory rate 19, temperature 98 degrees Fahrenheit. HEENT: PERRLA. NECK: Range of motion is full in all directions. No tenderness to paracervical muscles. No adenopathy. LUNGS: Decreased breath sounds bilaterally. HEART: S1 and S2 regular. ABDOMEN: Soft, nontender. BACK: Range of motion is decreased in flexion and extension. EXTREMITIES: Upper and lower extremity range of motion is decreased due to the patient's condition. Left partial foot amputation noted. Sensory is intact. Reflexes are not obtainable. No adenopathy. ASSESSMENT AND PLAN: Patient is a 70-year-old male with left lower extremity pain, history of partial foot amputation, nonhealing ulcer, and peripheral neuropathy. Patient will be continued on [place]. We will increase morphine to 4 mg IV every 6 hours as needed for severe pain and continue patient on Neurontin 600 mg tablet 3 times a day. The patient was discussed with Dr. Stanford and Dr. Stanford concurred. We will follow the patient. Thank you very much for the courtesy of this consultation. Kimi Stanford M.D. LUKAS Dillard DR: BRET JOB#: [id number] CC: STEPHANIE
[2020-05-11 04:00] VITALS: BP 129/85
[2020-05-11] MEDS: NovoLOG Insulin Flexpen SUBQ SCH ×4 (05:45→21:19)
[2020-05-11] MEDS: Heparin 5000 units/ml inj SUBQ SCH ×3 (06:11→21:12)
[2020-05-11] MEDS: Piperacillin/Tazobactam 3.375 GM in NS 110 ML IVPB SCH ×4 (06:12→23:00)
[2020-05-11 06:33] LABS: BASOPHILS % (AUTO) 0.9 % (0.0-2.0); HEMATOCRIT 38.6 % (42.0-52.0); HEMOGLOBIN 12.6 G/DL (14.2-18.0); LYMPHOCYTES % (AUTO) 29.1 % (20.0-45.0); MEAN CORPUSCULAR VOLUME 84 FL (80-99); MONOCYTES % (AUTO) 6.1 % (1.0-10.0); NEUTROPHILS % (AUTO) 62.9 % (45.0-75.0); PLATELET COUNT 241 K/UL (150-450); RED BLOOD COUNT 4.57 M/UL (4.70-6.10); RED CELL DISTRIBUTION WIDTH 12.5 % (11.6-14.8); WHITE BLOOD COUNT 5.9 K/UL (4.8-10.8)
[2020-05-11 06:54] LABS: ALANINE AMINOTRANSFERASE 20 U/L (12-78); ALBUMIN 3.3 G/DL (3.4-5.0); ALBUMIN/GLOBULIN RATIO 0.8 (1.0-2.7); ALKALINE PHOSPHATASE 139 U/L (46-116); ANION GAP 8 mmol/L (5-15); ASPARTATE AMINO TRANSFERASE 14 U/L (15-37); BILIRUBIN,TOTAL 0.5 MG/DL (0.2-1.0); BLOOD UREA NITROGEN 15 mg/dL (7-18); CALCIUM 9.3 MG/DL (8.5-10.1); CARBON DIOXIDE 27 MMOL/L (21-32); CHLORIDE 101 MMOL/L (98-107); CREATININE 1.2 MG/DL (0.55-1.30); POTASSIUM 4.2 MMOL/L (3.5-5.1); SODIUM 136 MMOL/L (136-145)
--- NOTE | 2020-05-11 07:09 | NUR ---
NURSE HAND-OFF: Important Events on Shift:pain mngt; wound dressing on left foot wound Patient Status: awake, alert Diet: Reg. CCHO Pending Orders: MRI foot, left Pending Results/Labs: Pending MD notification: Latest Vital Signs: Temperature 97.2 , Pulse 81 , B/P 129 /85 , Respiratory Rate 17 , O2 SAT 97 , Room Air, O2 Flow Rate . Vital Sign Comment: Latest Manzanares Fall Score: 45 Fall Risk: High Risk Safety Measures: Call light Within Reach, Bed Alarm Zone 1, Side Rails Side Rails x2, Bed position Low and Locked. Fall Precautions: Yellow Socks Yellow Gown Door Sign Patient Fall Education Report given to Baljit MON.
--- NOTE | 2020-05-11 07:24 | General Progress Note ---
Subjective Constitutional: Denies: no symptoms, chills, diaphoresis, fever, malaise, weakness, other HEENT: Denies: no symptoms, eye pain, blurred vision, tearing, double vision, ear pain, ear discharge, nose pain, nose congestion, throat pain, throat swelling, mouth pain, mouth swelling, other Cardiovascular: Denies: no symptoms, chest pain, edema, irregular heart rate, lightheadedness, palpitations, syncope, other Gastrointestinal/Abdominal: Denies: no symptoms, abdomen distended, abdominal pain, black stools, tarry stools, blood in stool, constipated, diarrhea, difficulty swallowing, nausea, poor appetite, poor fluid intake, rectal bleeding, vomiting, other Genitourinary: Denies: no symptoms, burning, discharge, frequency, flank pain, hematuria, incontinence, pain, urgency, other Neurologic/Psychiatric: Denies: no symptoms, anxiety, depressed, emotional problems, headache, numbness, paresthesia, pre-existing deficit, seizure, tingling, tremors, weakness, other Endocrine: Denies: no symptoms, excessive sweating, flushing, intolerance to cold, intolerance to heat, increased hunger, increased thirst, increased urine, unexplained weight gain, unexplained weight loss, other Hematologic/Lymphatic: Denies: no symptoms, anemia, easy bleeding, easy bruising, other Allergies: Coded Allergies: No Known Allergies (Unverified , 05/07/14) Subjective 05/11 with left foot ulcer c/o pain and is on abx currently, seen by pod Objective Last 24 Hour Vital Signs Date Time Temp Pulse Resp B/P (MAP) Pulse Ox O2 Delivery O2 Flow Rate FiO2 05/11/20 04:00 97.2 81 17 129/85 (100) 97 05/11/20 00:00 97.6 73 18 136/71 (92) 97 05/10/20 22:04 98.2 05/10/20 21:00 Room Air 05/10/20 20:00 98.1 86 19 150/87 (108) 96 05/10/20 17:38 Room Air 05/10/20 17:36 85 19 140/88 98 05/10/20 17:06 85 19 140/88 98 05/10/20 16:00 98.2 90 19 136/83 (100) 98 05/10/20 12:00 98.2 85 19 140/88 (105) 98 05/10/20 09:57 98.4 05/10/20 09:00 Room Air 05/10/20 08:00 98.4 88 19 145/93 (110) 98 Intake and Output 05/10/20 05/11/20 18:59 06:59 Intake Total 573.334 ml 700 ml Output Total 800 ml 500 ml Balance -226.666 ml 200 ml Intake Oral 240 ml 700 ml IV Total 333.334 ml Output Urine Total 800 ml 500 ml # Voids 3 3 Laboratory Tests 05/10/20 11:27: POC Whole Blood Glucose 295H 05/10/20 16:21: POC Whole Blood Glucose 284H 05/10/20 20:10: Vancomycin Level Trough 9.5 05/11/20 05:41: POC Whole Blood Glucose 172H 05/11/20 06:00: White Blood Count 5.9, Red Blood Count 4.57L, Hemoglobin 12.6L, Hematocrit 38.6L , Mean Corpuscular Volume 84, Mean Corpuscular Hemoglobin 27.6, Mean Corpuscular Hemoglobin Concent 32.7, Red Cell Distribution Width 12.5, Platelet Count 241, Mean Platelet Volume 6.7, Neutrophils (%) (Auto) 62.9, Lymphocytes (%) (Auto) 29.1, Monocytes (%) (Auto) 6.1, Eosinophils (%) (Auto) 1.0, Basophils (%) (Auto) 0.9, Sodium Level 136, Potassium Level 4.2, Chloride Level 101, Carbon Dioxide Level 27, Anion Gap 8, Blood Urea Nitrogen 15, Creatinine 1.2, Estimat Glomerular Filtration Rate > 60, Glucose Level 160H, Calcium Level 9.3, Total Bilirubin 0.5, Aspartate Amino Transf (AST/SGOT) 14L, Alanine Aminotransferase (ALT/SGPT) 20, Alkaline Phosphatase 139H, Total Protein 7.3, Albumin 3.3L, Globulin 4.0, Albumin/Globulin Ratio 0.8L Height (Feet): 5 Height (Inches): 11.00 Weight (Pounds): 155 Objective General Appearance: no apparent distress EENT: PERRL/EOMI Neck: supple Cardiovascular: normal rate Respiratory/Chest: normal breath sounds Abdomen: soft Extremities: non-tender, left iner foot ulceration Assessment/Plan Assessment/Plan: Assessment/Plan Assessment/Plan: 1 cellulitis lt foot 2 non healing ulcer 3 pvd 4 dm type 2 5 dm neuropathy iv abx wound and podietarty consult cont ss, aacue check pain management consult on abx bianca/Lorenzo Ramos MD May 11, 2020 07:24
[2020-05-11] MEDS: Morphine Sulfate 4mg/ml Inj (IV USE ONLY) IVP PRN ×3 (07:45→20:42)
--- NOTE | 2020-05-11 07:57 | NUR ---
NURSE NOTES: pt is alert and awake in the bed eating breakfast, tolerates meal well. HOB elevated. no acute distress noted. call light is within reach, will follow plan of care.
[2020-05-11 08:00] VITALS: BP 123/82
--- NOTE | 2020-05-11 09:04 | NUR ---
CASE MANAGEMENT: REVIEW SI: DIABETIC FOOT ULCER . CELLULITIS LEFT FOOT . DM . s/p TRANSMETATARSAL AMPUTATION T 97.2 HR 81 RR 17 BP 150/87 SAT 96% ROOM AIR H/H 12.6/38.6 GLUCOSE 160 MRI PENDING r/o OSTEOMYELITIS IS: VANCOMYCIN IV Q8HR ZOSYN IV Q8HR NOVOLOG SUBQ AC+HS MED/SURG STATUS DCP: PATIENT IS FROM HOME
--- NOTE | 2020-05-11 09:18 | General Progress Note ---
Subjective Date patient seen: May 11, 2020 Time patient seen: 08:00 - am Allergies: Coded Allergies: No Known Allergies (Unverified , 05/07/14) Subjective REVIEW OF SYSTEMS: Denies rash, fever, chills, sweating, dizziness, drowsiness, blurred vision, sore throat, or change in weight. No shortness of breath or chest pain. No nausea, vomiting, diarrhea, or blood in the stool or urine. No dysuria. HISTORY OF PRESENT ILLNESS: This is a 70-year-old male who is being seen on the Med/Surg floor of [facility]. Patient is in bed continues to c/o which has been tolerated on the Morphine increases which he has gotten 3 doses of in the last 24hrs. No new complaints at this time. Objective Last 24 Hour Vital Signs Date Time Temp Pulse Resp B/P (MAP) Pulse Ox O2 Delivery O2 Flow Rate FiO2 05/11/20 04:00 97.2 81 17 129/85 (100) 97 05/11/20 00:00 97.6 73 18 136/71 (92) 97 05/10/20 22:04 98.2 05/10/20 21:00 Room Air 05/10/20 20:00 98.1 86 19 150/87 (108) 96 05/10/20 17:38 Room Air 05/10/20 17:36 85 19 140/88 98 05/10/20 17:06 85 19 140/88 98 05/10/20 16:00 98.2 90 19 136/83 (100) 98 05/10/20 12:00 98.2 85 19 140/88 (105) 98 05/10/20 09:57 98.4 Intake and Output 05/10/20 05/11/20 18:59 06:59 Intake Total 573.334 ml 700 ml Output Total 800 ml 500 ml Balance -226.666 ml 200 ml Intake Oral 240 ml 700 ml IV Total 333.334 ml Output Urine Total 800 ml 500 ml # Voids 3 3 Laboratory Tests 05/10/20 11:27: POC Whole Blood Glucose 295H 05/10/20 16:21: POC Whole Blood Glucose 284H 05/10/20 20:10: Vancomycin Level Trough 9.5 05/11/20 05:41: POC Whole Blood Glucose 172H 05/11/20 06:00: White Blood Count 5.9, Red Blood Count 4.57L, Hemoglobin 12.6L, Hematocrit 38.6L , Mean Corpuscular Volume 84, Mean Corpuscular Hemoglobin 27.6, Mean Corpuscular Hemoglobin Concent 32.7, Red Cell Distribution Width 12.5, Platelet Count 241, Mean Platelet Volume 6.7, Neutrophils (%) (Auto) 62.9, Lymphocytes (%) (Auto) 29.1, Monocytes (%) (Auto) 6.1, Eosinophils (%) (Auto) 1.0, Basophils (%) (Auto) 0.9, Sodium Level 136, Potassium Level 4.2, Chloride Level 101, Carbon Dioxide Level 27, Anion Gap 8, Blood Urea Nitrogen 15, Creatinine 1.2, Estimat Glomerular Filtration Rate > 60, Glucose Level 160H, Calcium Level 9.3, Total Bilirubin 0.5, Aspartate Amino Transf (AST/SGOT) 14L, Alanine Aminotransferase (ALT/SGPT) 20, Alkaline Phosphatase 139H, Total Protein 7.3, Albumin 3.3L, Globulin 4.0, Albumin/Globulin Ratio 0.8L Height (Feet): 5 Height (Inches): 11.00 Weight (Pounds): 155 Objective PHYSICAL EXAMINATION: GENERAL: Alert, awake, and oriented. LUNGS: Decreased breath sounds bilaterally. HEART: S1 and S2 regular. ABDOMEN: Soft, nontender. EXTREMITIES: Left partial foot amputation noted. NEURO: No changes. Assessment/Plan Assessment/Plan: (1) Left LE pain (2) H/O Left LE partial foot amputation (3) Non healing ulcer (4) Peripheral neuropathy Patient will be continued on Morphine and [place]. D/w Dr. Stanford and he concurred. Dimitry Plaza May 11, 2020 09:18
--- NOTE | 2020-05-11 10:07 | General Progress Note ---
Subjective Date patient seen: May 11, 2020 Allergies: Coded Allergies: No Known Allergies (Unverified , 05/07/14) Subjective c/o pain on foot doing better Objective Last 24 Hour Vital Signs Date Time Temp Pulse Resp B/P (MAP) Pulse Ox O2 Delivery O2 Flow Rate FiO2 05/11/20 08:00 98.0 78 18 123/82 (96) 97 05/11/20 04:00 97.2 81 17 129/85 (100) 97 05/11/20 00:00 97.6 73 18 136/71 (92) 97 05/10/20 22:04 98.2 05/10/20 21:00 Room Air 05/10/20 20:00 98.1 86 19 150/87 (108) 96 05/10/20 17:38 Room Air 05/10/20 17:36 85 19 140/88 98 05/10/20 17:06 85 19 140/88 98 05/10/20 16:00 98.2 90 19 136/83 (100) 98 05/10/20 12:00 98.2 85 19 140/88 (105) 98 Intake and Output 05/10/20 05/11/20 18:59 06:59 Intake Total 573.334 ml 700 ml Output Total 800 ml 500 ml Balance -226.666 ml 200 ml Intake Oral 240 ml 700 ml IV Total 333.334 ml Output Urine Total 800 ml 500 ml # Voids 3 3 Laboratory Tests 05/10/20 11:27: POC Whole Blood Glucose 295H 05/10/20 16:21: POC Whole Blood Glucose 284H 05/10/20 20:10: Vancomycin Level Trough 9.5 05/11/20 05:41: POC Whole Blood Glucose 172H 05/11/20 06:00: White Blood Count 5.9, Red Blood Count 4.57L, Hemoglobin 12.6L, Hematocrit 38.6L , Mean Corpuscular Volume 84, Mean Corpuscular Hemoglobin 27.6, Mean Corpuscular Hemoglobin Concent 32.7, Red Cell Distribution Width 12.5, Platelet Count 241, Mean Platelet Volume 6.7, Neutrophils (%) (Auto) 62.9, Lymphocytes (%) (Auto) 29.1, Monocytes (%) (Auto) 6.1, Eosinophils (%) (Auto) 1.0, Basophils (%) (Auto) 0.9, Sodium Level 136, Potassium Level 4.2, Chloride Level 101, Carbon Dioxide Level 27, Anion Gap 8, Blood Urea Nitrogen 15, Creatinine 1.2, Estimat Glomerular Filtration Rate > 60, Glucose Level 160H, Calcium Level 9.3, Total Bilirubin 0.5, Aspartate Amino Transf (AST/SGOT) 14L, Alanine Aminotransferase (ALT/SGPT) 20, Alkaline Phosphatase 139H, Total Protein 7.3, Albumin 3.3L, Globulin 4.0, Albumin/Globulin Ratio 0.8L Height (Feet): 5 Height (Inches): 11.00 Weight (Pounds): 155 General Appearance: no apparent distress EENT: normal ENT inspection Neck: supple Cardiovascular: normal rate Respiratory/Chest: normal breath sounds Abdomen: non tender Extremities: non-tender, swelling, other - lt foot ulcer Assessment/Plan Assessment/Plan: 1 cellulitis lt foot 2 non healing ulcer 3 pvd 4 dm type 2 5 dm neuropathy iv abx wound and podietarty consult cont ss, aacue check pain management consult Noble Penn MD May 11, 2020 10:07
--- NOTE | 2020-05-11 10:07 | General Progress Note ---
Subjective Allergies: Coded Allergies: No Known Allergies (Unverified , 05/07/14) Subjective c/o pain on foot doing better Objective Last 24 Hour Vital Signs Date Time Temp Pulse Resp B/P (MAP) Pulse Ox O2 Delivery O2 Flow Rate FiO2 05/11/20 08:00 98.0 78 18 123/82 (96) 97 05/11/20 04:00 97.2 81 17 129/85 (100) 97 05/11/20 00:00 97.6 73 18 136/71 (92) 97 05/10/20 22:04 98.2 05/10/20 21:00 Room Air 05/10/20 20:00 98.1 86 19 150/87 (108) 96 05/10/20 17:38 Room Air 05/10/20 17:36 85 19 140/88 98 05/10/20 17:06 85 19 140/88 98 05/10/20 16:00 98.2 90 19 136/83 (100) 98 05/10/20 12:00 98.2 85 19 140/88 (105) 98 Intake and Output 05/10/20 05/11/20 18:59 06:59 Intake Total 573.334 ml 700 ml Output Total 800 ml 500 ml Balance -226.666 ml 200 ml Intake Oral 240 ml 700 ml IV Total 333.334 ml Output Urine Total 800 ml 500 ml # Voids 3 3 Laboratory Tests 05/10/20 11:27: POC Whole Blood Glucose 295H 05/10/20 16:21: POC Whole Blood Glucose 284H 05/10/20 20:10: Vancomycin Level Trough 9.5 05/11/20 05:41: POC Whole Blood Glucose 172H 05/11/20 06:00: White Blood Count 5.9, Red Blood Count 4.57L, Hemoglobin 12.6L, Hematocrit 38.6L , Mean Corpuscular Volume 84, Mean Corpuscular Hemoglobin 27.6, Mean Corpuscular Hemoglobin Concent 32.7, Red Cell Distribution Width 12.5, Platelet Count 241, Mean Platelet Volume 6.7, Neutrophils (%) (Auto) 62.9, Lymphocytes (%) (Auto) 29.1, Monocytes (%) (Auto) 6.1, Eosinophils (%) (Auto) 1.0, Basophils (%) (Auto) 0.9, Sodium Level 136, Potassium Level 4.2, Chloride Level 101, Carbon Dioxide Level 27, Anion Gap 8, Blood Urea Nitrogen 15, Creatinine 1.2, Estimat Glomerular Filtration Rate > 60, Glucose Level 160H, Calcium Level 9.3, Total Bilirubin 0.5, Aspartate Amino Transf (AST/SGOT) 14L, Alanine Aminotransferase (ALT/SGPT) 20, Alkaline Phosphatase 139H, Total Protein 7.3, Albumin 3.3L, Globulin 4.0, Albumin/Globulin Ratio 0.8L Height (Feet): 5 Height (Inches): 11.00 Weight (Pounds): 155 Assessment/Plan Assessment/Plan: 1 cellulitis lt foot 2 non healing ulcer 3 pvd 4 dm type 2 5 dm neuropathy iv abx wound and podietarty consult cont ss, aacue check pain management consult waiting for podietary and vascular surgery Noble Penn MD May 11, 2020 10:07
--- NOTE | 2020-05-11 10:24 | NUR ---
NURSE NOTES: pt refuses MRI. States "when they take me down there in the machine, I can't take it, my leg is so sore." pain medication administered to pt as prescribed. Dr. Penn aware.
[2020-05-11 12:00] VITALS: BP 119/78
--- NOTE | 2020-05-11 12:47 | Diagnostic Imaging Report ---
INDICATION: Left foot pain, history of left foot ulcer TECHNIQUE: IV administration nonionic contrast. Arterial phase spiral acquisitions obtained through the abdomen, pelvis, and bilateral lower extremities. Multiplanar and 3-D reconstructions were generated. Total dose length product 516 mGycm. CTDIvol(s) 2, 34, 3, 2 mGy. Radiation dose was minimized using automated exposure control COMPARISON: No comparison cross-sectional imaging. Reference made to arterial duplex scan dated 05/11/2020 FINDINGS Abdominal aorta: There is hard and soft mural plaquing of the abdominal aorta. This does not result in any significant narrowing. The celiac axis demonstrates mild origin stenosis but no significant narrowing. There is classic branching anatomy and patency of the proximal branches. The superior mesenteric artery demonstrates considerable mural plaquing resulting in mild stenosis proximally. The proximal branches are all widely patent. Patent nonstenotic inferior mesenteric artery. Single right and left renal arteries, no significant stenosis demonstrated. Right lower extremity: Extensive hard and soft mural plaquing of but no significant stenosis of the common and external iliac arteries. There is a moderate to severe stenosis of the internal iliac origin. Patent nonstenotic common femoral artery. There is origin occlusion of the superficial femoral artery. There are areas of segmental reconstitution of the superficial femoral artery distally. The proximal popliteal artery reconstitutes and then reoccludes. It again reconstitutes just above the knee joint level, where it is severely diseased and then occludes below the knee joint level. The anterior tibial artery is essentially occluded over its entire length, although there are a few very small focal areas of segmental reconstitution noted. The dorsalis pedis artery reconstitutes well below the ankle from peroneal collaterals. There is origin occlusion of the tibioperoneal trunk, which does reconstitute distally. The posterior tibial artery appears to be patent, although extensive calcification precludes exclusion of significant stenoses. It forms a plantar vessel. The peroneal artery is patent, small in caliber, and demonstrates multiple focal at least moderate stenoses. It does reach the ankle. Left lower extremity: There is considerable hard and soft plaque involving the common and external iliac arteries, but no significant stenosis is demonstrated. The internal iliac artery and proximal branches are patent. Patent nonstenotic common femoral and profunda femoral arteries. Flush origin occlusion of the superficial femoral artery is demonstrated. The superficial femoral artery is occluded over its entire length, as is the popliteal artery. The anterior tibial artery is essentially occluded over its entire length, although there may be a few foci of segmental reconstitution. The dorsalis pedis artery reconstitutes well below the ankle via peroneal collaterals. The tibioperoneal trunk is occluded. The peroneal artery is patent, although demonstrates multiple stenoses, at least moderate. The posterior tibial artery is occluded over its entire length. Nonvascular: The liver, gallbladder, bile ducts, pancreas, spleen, adrenals, kidneys are all unremarkable. No retroperitoneal or mesenteric mass or adenopathy. The prostate is enlarged. No pelvic mass or adenopathy there is an unusual eggshell calcification in the left seminal vesicle. The appendix is normal. There is considerable stool throughout the colon. No evidence of diverticulosis or diverticulitis. No small bowel distention. No free or loculated intraperitoneal gas or fluid is evident. The included lung bases are essentially clear. The bones are unremarkable except for mild degenerative spondylosis changes IMPRESSION: Evidence of severe left lower extremity vascular disease, with complete occlusions of the entire lengths of the superficial femoral, popliteal, anterior tibial and posterior tibial arteries. There is reconstitution of the peroneal artery which forms the only patent tibial vessel. This is at least moderately disease. The peroneal artery does reconstitute the dorsalis pedis artery Evidence of severe right lower extremity peripheral vascular disease, with complete occlusions of the entire length of the superficial femoral artery. The popliteal artery is essentially occluded over its length, although there are some foci of segmental reconstitution. There are also complete occlusions of the posterior tibial and anterior tibial arteries. The reconstituted peroneal artery forms the only patent tibial vessel. Incidental findings as noted The CT scanner at [facility] is accredited by the [employer] and the scans are performed using protocols designed to limit radiation exposure to as low as reasonably achievable to attain images of sufficient resolution adequate for diagnostic evaluation.
--- NOTE | 2020-05-11 13:08 | Diagnostic Imaging Report ---
Indication: Left foot pain and foot ulcer Technique: Grayscale and duplex images of the bilateral lower extremity arteries Comparison: 01/01/2020; also CT angiogram dated 05/10/2020 Findings: On the right, the common femoral artery demonstrates triphasic waveforms with sharp systolic peaks. The superficial femoral artery is occluded. The profunda femoral artery is patent, demonstrates borderline monophasic waveform with sharp systolic peaks. There is some reconstitution of the distal superficial femoral artery and popliteal artery, waveforms are monophasic. Some limited flow is seen within the peroneal, anterior and posterior tibial arteries, waveforms which are monophasic. On the left, sharp systolic peaks with triphasic waveform seen in the common femoral artery. The profunda femoris artery is patent. The superficial femoral artery is completely occluded. The popliteal artery is completely occluded. The posterior tibial artery demonstrates some segmental reconstitution is essentially completely occluded. Peroneal artery is patent, demonstrates severely dampened waveforms. The dorsalis pedis artery is patent, demonstrates severely dampened waveforms. Impression: Evidence of right superficial femoral artery occlusion Flow is demonstrated in the right anterior tibial artery and posterior tibial artery. This might actually be within collaterals, as these vessels are demonstrated to be occluded on a CT runoff performed the previous day Evidence of left superficial femoral and popliteal artery occlusive disease. There is evidence of severe trifurcation disease, better demonstrated on recent CT scan
--- NOTE | 2020-05-11 15:29 | Diagnostic Imaging Report ---
Indication: Left foot pain, history of foot ulcer Technique: Grayscale and duplex images of the bilateral lower extremity veins Comparison: 01/01/2020 Findings: Bilaterally, grayscale and duplex images demonstrate no evidence of intraluminal thrombus. Normal phasic Doppler waveforms, demonstrating normal augmentation response and no evidence of valvular insufficiency. Greater saphenous vein(s) and tibial veins are patent. Normal compressibility. Impression: Negative for evidence of lower extremity deep venous thrombosis bilaterally
--- NOTE | 2020-05-11 15:57 | Surgery Progress Note ---
Surgery Progress Note Subjective Symptoms: improved, tolerating diet, voiding well, passing flatus, BM Objective Last 24 Hour Vital Signs Date Time Temp Pulse Resp B/P (MAP) Pulse Ox O2 Delivery O2 Flow Rate FiO2 05/11/20 12:00 98.2 80 18 119/78 (92) 98 05/11/20 09:00 Room Air 05/11/20 08:00 98.0 78 18 123/82 (96) 97 05/11/20 04:00 97.2 81 17 129/85 (100) 97 05/11/20 00:00 97.6 73 18 136/71 (92) 97 05/10/20 22:04 98.2 05/10/20 21:00 Room Air 05/10/20 20:00 98.1 86 19 150/87 (108) 96 05/10/20 17:38 Room Air 05/10/20 17:36 85 19 140/88 98 05/10/20 17:06 85 19 140/88 98 05/10/20 16:00 98.2 90 19 136/83 (100) 98 I&O Intake and Output 05/10/20 05/11/20 19:00 07:00 Intake Total 573.334 ml 700 ml Output Total 800 ml 500 ml Balance -226.666 ml 200 ml Intake Oral 240 ml 700 ml IV Total 333.334 ml Output Urine Total 800 ml 500 ml # Voids 3 3 Dressing: dry Wound: clean Cardiovascular: RSR Respiratory: clear Abdomen: soft, non-tender, present bowel sounds Extremities: no edema, no tenderness, no cyanosis, other Laboratory Tests Test 05/10/20 16:21 05/10/20 20:10 05/11/20 05:41 05/11/20 06:00 POC Whole Blood Glucose 284 MG/DL (74-106) H 172 MG/DL (74-106) H Vancomycin Level Trough 9.5 ug/mL (5.0-12.0) White Blood Count 5.9 K/UL (4.8-10.8) Red Blood Count 4.57 M/UL (4.70-6.10) L Hemoglobin 12.6 G/DL (14.2-18.0) L Hematocrit 38.6 % (42.0-52.0) L Mean Corpuscular Volume 84 FL (80-99) Mean Corpuscular Hemoglobin 27.6 PG (27.0-31.0) Mean Corpuscular Hemoglobin Concent 32.7 G/DL (32.0-36.0) Red Cell Distribution Width 12.5 % (11.6-14.8) Platelet Count 241 K/UL (150-450) Mean Platelet Volume 6.7 FL (6.5-10.1) Neutrophils (%) (Auto) 62.9 % (45.0-75.0) Lymphocytes (%) (Auto) 29.1 % (20.0-45.0) Monocytes (%) (Auto) 6.1 % (1.0-10.0) Eosinophils (%) (Auto) 1.0 % (0.0-3.0) Basophils (%) (Auto) 0.9 % (0.0-2.0) Sodium Level 136 MMOL/L (136-145) Potassium Level 4.2 MMOL/L (3.5-5.1) Chloride Level 101 MMOL/L (98-107) Carbon Dioxide Level 27 MMOL/L (21-32) Anion Gap 8 mmol/L (5-15) Blood Urea Nitrogen 15 mg/dL (7-18) Creatinine 1.2 MG/DL (0.55-1.30) Estimat Glomerular Filtration Rate > 60 mL/min (>60) Glucose Level 160 MG/DL (74-106) H Calcium Level 9.3 MG/DL (8.5-10.1) Total Bilirubin 0.5 MG/DL (0.2-1.0) Aspartate Amino Transf (AST/SGOT) 14 U/L (15-37) L Alanine Aminotransferase (ALT/SGPT) 20 U/L (12-78) Alkaline Phosphatase 139 U/L (46-116) H Total Protein 7.3 G/DL (6.4-8.2) Albumin 3.3 G/DL (3.4-5.0) L Globulin 4.0 g/dL Albumin/Globulin Ratio 0.8 (1.0-2.7) L Test 05/11/20 12:00 POC Whole Blood Glucose 360 MG/DL (74-106) H Plan Problems: (1) Osteomyelitis of ankle or foot, acute Assessment & Plan: MRI ordered pending results Patient is status post transmetatarsal amputation. There is a wire in the soft tissues dorsal to the fifth metatarsal stump. No acute fractures. No definite osseous erosions or unusual periosteal reaction Impression: Postoperative changes, as described No definite acute abnormality. No plain radiographic evidence of acute osteomyelitis. Note, however, limited sensitivity of plain radiographs for such. Consider MRI or bone scan for better characterization if there is high clinical suspicion (2) Cellulitis Assessment & Plan: abx as per ID keep leg elevated with pillows (3) Diabetic foot ulcer (4) Epileptic seizure, generalized (5) Diabetes mellitus (6) CAD (coronary artery disease) (7) Cardiomyopathy (8) PVD (peripheral vascular disease) Assessment & Plan: vascular consult placed Leg duplex and CT angio Abx per ID Antiplatelet and statin therapy & DVT precautions Podiatry f/u Smoking abstinence Will schedule patient for selective left leg angiogram to assess for revascularization Abdominal aorta: There is hard and soft mural plaquing of the abdominal aorta. This does not result in any significant narrowing. The celiac axis demonstrates mild origin stenosis but no significant narrowing. There is classic branching anatomy and patency of the proximal branches. The superior mesenteric artery demonstrates considerable mural plaquing resulting in mild stenosis proximally. The proximal branches are all widely patent. Patent nonstenotic inferior mesenteric artery. Single right and left renal arteries, no significant stenosis demonstrated. Right lower extremity: Extensive hard and soft mural plaquing of but no significant stenosis of the common and external iliac arteries. There is a moderate to severe stenosis of the internal iliac origin. Patent nonstenotic common femoral artery. There is origin occlusion of the superficial femoral artery. There are areas of segmental reconstitution of the superficial femoral artery distally. The proximal popliteal artery reconstitutes and then reoccludes. It again reconstitutes just above the knee joint level, where it is severely diseased and then occludes below the knee joint level. The anterior tibial artery is essentially occluded over its entire length, although there are a few very small focal areas of segmental reconstitution noted. The dorsalis pedis artery reconstitutes well below the ankle from peroneal collaterals. There is origin occlusion of the tibioperoneal trunk, which does reconstitute distally. The posterior tibial artery appears to be patent, although extensive calcification precludes exclusion of significant stenoses. It forms a plantar vessel. The peroneal artery is patent, small in caliber, and demonstrates multiple focal at least moderate stenoses. It does reach the ankle. Left lower extremity: There is considerable hard and soft plaque involving the common and external iliac arteries, but no significant stenosis is demonstrated. The internal iliac artery and proximal branches are patent. Patent nonstenotic common femoral and profunda femoral arteries. Flush origin occlusion of the superficial femoral artery is demonstrated. The superficial femoral artery is occluded over its entire length, as is the popliteal artery. The anterior tibial artery is e ssentially occluded over its entire length, although there may be a few foci of segmental reconstitution. The dorsalis pedis artery reconstitutes well below the ankle via peroneal collaterals. The tibioperoneal trunk is occluded. The peroneal artery is patent, although demonstrates multiple stenoses, at least moderate. The posterior tibial artery is occluded over its entire length. Nonvascular: The liver, gallbladder, bile ducts, pancreas, spleen, adrenals, kidneys are all unremarkable. No retroperitoneal or mesenteric mass or adenopathy. The prostate is enlarged. No pelvic mass or adenopathy there is an unusual eggshell calcification in the left seminal vesicle. The appendix is normal. There is considerable stool throughout the colon. No evidence of diverticulosis or diverticulitis. No small bowel distention. No free or loculated intraperitoneal gas or fluid is evident. The included lung bases are essentially clear. The bones are unremarkable except for mild degenerative spondylosis changes IMPRESSION: Evidence of severe left lower extremity vascular disease, with complete occlusions of the entire lengths of the superficial femoral, popliteal, anterior tibial and posterior tibial arteries. There is reconstitution of the peroneal artery which forms the only patent tibial vessel. This is at least moderately disease. The peroneal artery does reconstitute the dorsalis pedis art zenon Evidence of severe right lower extremity peripheral vascular disease, with complete occlusions of the entire length of the superficial femoral artery. The popliteal artery is essentially occluded over its length, although there are some foci of segmental reconstitution. There are also complete occlusions of the posterior tibial and anterior tibial arteries. The reconstituted peroneal artery forms the only patent tibial vessel. (9) History of CVA (cerebrovascular accident) Josafat Narvaez May 11, 2020 15:57
[2020-05-11 16:00] VITALS: BP 122/67
--- NOTE | 2020-05-11 16:34 | NUR ---
INSURANCE CLINICALS/REVIEWS FAXED TO [facility] [phone] Addendum: 05/11/20 at 1637 by Prisca Baig CM CLINICALS AND REVIEWS 05/08-05/11 FAXED
--- NOTE | 2020-05-11 19:25 | NUR ---
NURSE NOTES: Received a pt on the bed awake,A&Ox4, and verbal. Pt has no sob,fever,pain and cough at the moment. Iv is intact and asymptomatic. seizure pre applied. Bed is in the lowest position,locked and call light within reach. We will keep monitoring the pt.
--- NOTE | 2020-05-11 19:55 | NUR ---
HANDS OFF: REPORT GIVEN TO DEBORAH.
[2020-05-11 20:00] VITALS: BP 146/89
[2020-05-11] MEDS: Atorvastatin 20mg tab ORAL SCH (21:11)
--- NOTE | 2020-05-11 23:56 | General Progress Note ---
Progress Note Progress Note All noted CT angio and duplex images were all reviewed Rec Daily Ecotrin 81mg, Plavix 75mg and Statin Abx per ID Ok for d/c planning and will schedule the patient for selective left leg angiogram & revascularization as outpatient d/w pmd Conrado Candelario MD May 11, 2020 23:56
[2020-05-12] VITALS: BP 150/87
[2020-05-12 04:00] VITALS: BP 149/82
[2020-05-12] MEDS: Heparin 5000 units/ml inj SUBQ SCH ×3 (05:22→21:17)
[2020-05-12] MEDS: NovoLOG Insulin Flexpen SUBQ SCH ×4 (05:26→20:41)
--- NOTE | 2020-05-12 06:11 | NUR ---
NURSE HAND-OFF: Important Events on Shift: na Patient Status: stable Diet: ccho Pending Orders: Pending Results/Labs: noninvasive vascular mapping Pending MD notification: Latest Vital Signs: Temperature 98.4 , Pulse 96 , B/P 149 /82 , Respiratory Rate 18 , O2 SAT 95 , Room Air, O2 Flow Rate . Vital Sign Comment: Latest Manzanares Fall Score: 45 Fall Risk: High Risk Safety Measures: Call light Within Reach, Bed Alarm Zone 1, Side Rails Side Rails x2, Bed position Low and Locked. Fall Precautions: Yellow Socks Yellow Gown Door Sign Patient Fall Education .
[2020-05-12] MEDS: Piperacillin/Tazobactam 3.375 GM in NS 110 ML IVPB SCH ×2 (07:00→13:48)
--- NOTE | 2020-05-12 07:27 | NUR ---
HAND-OFF: Report given to carmela/ELIESER Ma.
--- NOTE | 2020-05-12 07:51 | NUR ---
NURSE NOTES: Received report from ELIESER Georges. Patient is AOx1. non verbal, T-piece with O2 at 6 liters. G-tube patent receiving Nepro at 40cc/h, patient produces a lot of secretions and needs suctioning constantly, lungs sound congested, and bowel sounds present in all four quadrants. pedal pulses present, SCD bilaterally on. Patient on P200 matress, he will be monitored for safety. Addendum: 05/12/20 at 0759 by Bigg Ma RN RN disregard last note, wrong patient.
[2020-05-12 08:00] VITALS: BP 142/90
--- NOTE | 2020-05-12 08:28 | General Progress Note ---
Subjective Constitutional: Denies: no symptoms, chills, diaphoresis, fever, malaise, weakness, other HEENT: Denies: no symptoms, eye pain, blurred vision, tearing, double vision, ear pain, ear discharge, nose pain, nose congestion, throat pain, throat swelling, mouth pain, mouth swelling, other Cardiovascular: Denies: no symptoms, chest pain, edema, irregular heart rate, lightheadedness, palpitations, syncope, other Respiratory: Denies: no symptoms, cough, orthopnea, shortness of breath, SOB with excertion, SOB at rest, sputum, stridor, wheezing, other Gastrointestinal/Abdominal: Denies: no symptoms, abdomen distended, abdominal pain, black stools, tarry stools, blood in stool, constipated, diarrhea, difficulty swallowing, nausea, poor appetite, poor fluid intake, rectal bleeding, vomiting, other Neurologic/Psychiatric: Denies: no symptoms, anxiety, depressed, emotional problems, headache, numbness, paresthesia, pre-existing deficit, seizure, tingling, tremors, weakness, other Endocrine: Denies: no symptoms, excessive sweating, flushing, intolerance to cold, intolerance to heat, increased hunger, increased thirst, increased urine, unexplained weight gain, unexplained weight loss, other Allergies: Coded Allergies: No Known Allergies (Unverified , 05/07/14) Subjective 05/11 with left foot ulcer c/o pain and is on abx currently, seen by pod 05/12 is on asa, statin, plavix and seen by [facility], to get angiog outpatient Objective Last 24 Hour Vital Signs Date Time Temp Pulse Resp B/P (MAP) Pulse Ox O2 Delivery O2 Flow Rate FiO2 05/12/20 04:00 98.4 96 18 149/82 (104) 95 05/12/20 00:00 98.7 70 18 150/87 (108) 95 05/11/20 21:00 Room Air 05/11/20 20:00 97.9 73 18 146/89 (108) 95 05/11/20 16:00 98.2 76 18 122/67 (85) 97 05/11/20 12:00 98.2 80 18 119/78 (92) 98 05/11/20 09:00 Room Air Intake and Output 05/11/20 05/12/20 19:00 07:00 Intake Total 520 ml 360 ml Output Total 950 ml 800 ml Balance -430 ml -440 ml Intake Oral 520 ml 360 ml Output Urine Total 950 ml 800 ml # Voids 3 3 Laboratory Tests 05/11/20 12:00: POC Whole Blood Glucose 360H 05/11/20 19:40: Vancomycin Level Trough 17.3H Height (Feet): 5 Height (Inches): 11.00 Weight (Pounds): 155 Objective General Appearance: no apparent distress EENT: PERRL/EOMI Neck: supple Cardiovascular: normal rate Respiratory/Chest: normal breath sounds Abdomen: soft Extremities: non-tender, left iner foot ulceration Assessment/Plan Assessment/Plan: Assessment/Plan Assessment/Plan: 1 cellulitis lt foot 2 non healing ulcer 3 pvd 4 dm type 2 5 dm neuropathy iv abx per ID wound and podietarty consult cont ss, aacue check pain management consult on abx vanc/zosyn outpatient angiogram Lorenzo Escobar MD May 12, 2020 08:28
[2020-05-12] MEDS: Aspirin EC 81mg tab ORAL SCH (08:32)
[2020-05-12] MEDS: Morphine Sulfate 4mg/ml Inj (IV USE ONLY) IVP PRN ×3 (08:44→21:10)
--- NOTE | 2020-05-12 09:59 | NUR ---
RD ASSESSMENT & RECOMMENDATIONS SEE CARE ACTIVITY FOR COMPLETE ASSESSMENT DAILY ESTIMATED NEEDS: Needs based on dm, wound, / 64.8kg 25-35 kcals/kg 1348-7849 total kcals 1.25-1.5 g protein/kg 81-130 g total protein 25-30 mL/kg 8966-5528 total fluid mLs NUTRITION DIAGNOSIS: 1) Altered nutrition related lab values r/t diabetes as evidenced by elev elev POC glu (211-329), elev BG (172-216) 2) Increased prot intake needs R/T wound healing as evidenced by pt w/ left ischemic ulcer. CURRENT DIET: CCHO MED PO DIET [facility] ADDITIONAL RECOMMENDATIONS: * Obtain a CALIBRATED bed scale wt for accurate CBW * Monitor BGs, consider long acting insulin for improved BG control (BGs 200's and 300's) * MINE GEOLOGIST eval for appropriate texture- h/o CVA * A1C for eval of BG control * Wound care: MVI x1, Vit C 250mg QD + BRANDI BID * Add GLUCERNA qdaily in b/w meals
--- NOTE | 2020-05-12 10:41 | Surgery Progress Note ---
Surgery Progress Note Subjective Additional Comments afebrile, HD stable improving tolerating diet Objective Last 24 Hour Vital Signs Date Time Temp Pulse Resp B/P (MAP) Pulse Ox O2 Delivery O2 Flow Rate FiO2 05/12/20 09:00 Room Air 05/12/20 08:00 97.9 91 20 142/90 (107) 98 05/12/20 04:00 98.4 96 18 149/82 (104) 95 05/12/20 00:00 98.7 70 18 150/87 (108) 95 05/11/20 21:00 Room Air 05/11/20 20:00 97.9 73 18 146/89 (108) 95 05/11/20 16:00 98.2 76 18 122/67 (85) 97 05/11/20 12:00 98.2 80 18 119/78 (92) 98 I&O Intake and Output 05/11/20 05/12/20 19:00 07:00 Intake Total 520 ml 360 ml Output Total 950 ml 800 ml Balance -430 ml -440 ml Intake Oral 520 ml 360 ml Output Urine Total 950 ml 800 ml # Voids 3 3 Dressing: dry Wound: clean Cardiovascular: RSR Respiratory: decreased breath sounds Abdomen: soft, non-tender, present bowel sounds Extremities: no edema, no tenderness, no cyanosis, pulses, other Laboratory Tests Test 05/11/20 12:00 05/11/20 19:40 POC Whole Blood Glucose 360 MG/DL (74-106) H Vancomycin Level Trough 17.3 ug/mL (5.0-12.0) H Plan Problems: (1) Osteomyelitis of ankle or foot, acute Assessment & Plan: MRI ordered pending results Patient is status post transmetatarsal amputation. There is a wire in the soft tissues dorsal to the fifth metatarsal stump. No acute fractures. No definite osseous erosions or unusual periosteal reaction Impression: Postoperative changes, as described No definite acute abnormality. No plain radiographic evidence of acute osteomyelitis. Note, however, limited sensitivity of plain radiographs for such. Consider MRI or bone scan for better characterization if there is high clinical suspicion (2) Cellulitis Assessment & Plan: abx as per ID keep leg elevated with pillows (3) Diabetic foot ulcer (4) Epileptic seizure, generalized (5) Diabetes mellitus (6) CAD (coronary artery disease) (7) Cardiomyopathy (8) PVD (peripheral vascular disease) Assessment & Plan: vascular consult placed Leg duplex and CT angio Abx per ID Antiplatelet and statin therapy & DVT precautions Podiatry f/u Smoking abstinence Will schedule patient for selective left leg angiogram to assess for revascularization Abdominal aorta: There is hard and soft mural plaquing of the abdominal aorta. This does not result in any significant narrowing. The celiac axis demonstrates mild origin stenosis but no significant narrowing. There is classic branching anatomy and patency of the proximal branches. The superior mesenteric artery demonstrates considerable mural plaquing resulting in mild stenosis proximally. The proximal branches are all widely patent. Patent nonstenotic inferior mesenteric artery. Single right and left renal arteries, no significant stenosis demonstrated. Right lower extremity: Extensive hard and soft mural plaquing of but no significant stenosis of the common and external iliac arteries. There is a moderate to severe stenosis of the internal iliac origin. Patent nonstenotic common femoral artery. There is origin occlusion of the superficial femoral artery. There are areas of segmental reconstitution of the superficial femoral artery distally. The proximal popliteal artery reconstitutes and then reoccludes. It again reconstitutes just above the knee joint level, where it is severely diseased and then occludes below the knee joint level. The anterior tibial artery is essentially occluded over its entire length, although there are a few very small focal areas of segmental reconstitution noted. The dorsalis pedis artery reconstitutes well below the ankle from peroneal collaterals. There is origin occlusion of the tibioperoneal trunk, which does reconstitute distally. The posterior tibial artery appears to be patent, alth ough extensive calcification precludes exclusion of significant stenoses. It forms a plantar vessel. The peroneal artery is patent, small in caliber, and demonstrates multiple focal at least moderate stenoses. It does reach the ankle. Left lower extremity: There is considerable hard and soft plaque involving the common and external iliac arteries, but no significant stenosis is demonstrated. The internal iliac artery and proximal branches are patent. Patent nonstenotic common femoral and profunda femoral arteries. Flush origin occlusion of the superficial femoral artery is demonstrated. The superficial femoral artery is occluded over its entire length, as is the popliteal artery. The anterior tibial artery is essentially occluded over its entire length, although there may be a few foci of segmental reconstitution. The dorsalis pedis artery reconstitutes well below the ankle via peroneal collaterals. The tibioperoneal trunk is occluded. The peroneal artery is patent, although demonstrates multiple stenoses, at least moderate. The posterior tibial artery is occluded over its entire length. Nonvascular: The liver, gallbladder, bile ducts, pancreas, spleen, adrenals, kidneys are all unremarkable. No retroperitoneal or mesenteric mass or adenopathy. The prostate is enlarged. No pelvic mass or adenopathy there is an unusual eggshell calcification in the left seminal vesicle. The appendix is normal. There is considerable stool throughout the colon. No evidence of diverticulosis or diverticulitis. No small bowel distention. No free or loculated intraperitoneal gas or fluid is evident. The included lung bases are essentially clear. The bones are unremarkable except for mild degenerative spondylosis changes IMPRESSION: Evidence of severe left lower extremity vascular disease, with complete occlusions of the entire lengths of the superficial femoral, popliteal, anterior tibial and posterior tibial arteries. There is reconstitution of the peroneal artery which forms the only patent tibial vessel. This is at least moderately disease. The peroneal artery does reconstitute the dorsalis pedis artery Evidence of severe right lower extremity peripheral vascular disease, with complete occlusions of the entire length of the superficial femoral artery. The popliteal artery is essentially occluded over its length, although there are some foci of segmental reconstitution. There are also complete occlusions of the posterior tibial and anterior tibial arteries. The reconstituted peroneal artery forms the only patent tibial vessel. (9) History of CVA (cerebrovascular accident) Josafat Narvaez May 12, 2020 10:41
[2020-05-12] MEDS: Methocarbamol 500mg tab ORAL PRN ×2 (10:57→20:23)
--- NOTE | 2020-05-12 10:57 | General Progress Note ---
Subjective Date patient seen: May 12, 2020 Time patient seen: 09:00 - am Allergies: Coded Allergies: No Known Allergies (Unverified , 05/07/14) Subjective REVIEW OF SYSTEMS: Denies rash, fever, chills, sweating, dizziness, drowsiness, blurred vision, sore throat, or change in weight. No shortness of breath or chest pain. No nausea, vomiting, diarrhea, or blood in the stool or urine. No dysuria. HISTORY OF PRESENT ILLNESS: This is a 70-year-old male who is being seen on the Med/Surg floor of [facility]. Patient continues to c/o pain which has been tolerated on the Morphine, was advised to use the Prentice. Is c/o spasms in his left leg, will f/u with vascular surgeon as outpatient. Objective Last 24 Hour Vital Signs Date Time Temp Pulse Resp B/P (MAP) Pulse Ox O2 Delivery O2 Flow Rate FiO2 05/12/20 09:00 Room Air 05/12/20 08:00 97.9 91 20 142/90 (107) 98 05/12/20 04:00 98.4 96 18 149/82 (104) 95 05/12/20 00:00 98.7 70 18 150/87 (108) 95 05/11/20 21:00 Room Air 05/11/20 20:00 97.9 73 18 146/89 (108) 95 05/11/20 16:00 98.2 76 18 122/67 (85) 97 05/11/20 12:00 98.2 80 18 119/78 (92) 98 Intake and Output 05/11/20 05/12/20 19:00 07:00 Intake Total 520 ml 360 ml Output Total 950 ml 800 ml Balance -430 ml -440 ml Intake Oral 520 ml 360 ml Output Urine Total 950 ml 800 ml # Voids 3 3 Laboratory Tests 05/11/20 12:00: POC Whole Blood Glucose 360H 05/11/20 19:40: Vancomycin Level Trough 17.3H Height (Feet): 5 Height (Inches): 11.00 Weight (Pounds): 155 Objective PHYSICAL EXAMINATION: GENERAL: Alert, awake, and oriented. LUNGS: Decreased breath sounds bilaterally. HEART: S1 and S2 regular. ABDOMEN: Soft, nontender. EXTREMITIES: Left partial foot amputation noted. NEURO: No changes. Assessment/Plan Assessment/Plan: (1) Left LE pain (2) H/O Left LE partial foot amputation (3) Non healing ulcer (4) Peripheral neuropathy Patient will be continued on Morphine and Prentice. We will order Robaxin 500mg PO 1 tab Q8H PRN muscle spasm. Rx for Prentice 10/325mg 15 tabs was written for patient in anticipation for discharge. D/w Dr. Stanford and he concurred. Dimitry Plaza May 12, 2020 10:57
--- NOTE | 2020-05-12 11:07 | NUR ---
NURSE NOTES: Patient complaining of leg spasms. MD notified and ordered robaxin 500mg po prn.
[2020-05-12 12:00] VITALS: BP 142/90
--- NOTE | 2020-05-12 13:31 | NUR ---
CASE MANAGEMENT:REVIEW SI;LEFT FOOT CELLULITIS. DIABETIC FOOT ULCER. DM. 98.7 96 20 150/87 95% ON RA IS;ROBAXIN PO Q8 PRN ASA PO QD VANCOMYCIN IV Q8 HEPARIN SUBQ Q8 MORPHINE IV Q6 PRN ZOSYN IV Q8 MED SURG STATUS DCP;FROM HOME
--- NOTE | 2020-05-12 15:31 | Diagnostic Imaging Report ---
Indication: Lower extremity pain secondary to peripheral arterial disease. Saphenous vein mapping requested prior to operative revascularization Technique: Grayscale and duplex images of the bilateral greater saphenous veins Comparison: none Findings: The right greater saphenous vein is patent and compressible. It measures 7 mm in diameter downstream common 4 mm in diameter above the knee, 2 mm in diameter at the knee, 1 mm diameter below the knee. The lesser saphenous vein is patent and compressible, measures 3 mm in the upper calf, 2 mm in the mid and lower calf. The left greater saphenous and lesser saphenous veins are patent and compressible patent. The greater saphenous measures 5 mm the upper thigh, 2 mm in the mid thigh, knee, mid calf, and ankle. The lesser saphenous vein measures 3 mm the upper calf, and 2 mm in the mid and lower calf Impression: Saphenous vein mapping, as described
[2020-05-12 16:00] VITALS: BP 151/91
--- NOTE | 2020-05-12 17:20 | NUR ---
INSURANCE CLINICALS/REVIEWS FAXED TO [facility] [phone]
--- NOTE | 2020-05-12 19:37 | NUR ---
NURSE HAND-OFF: Important Events on Shift:n/a Patient Status: stable Diet: CCHO Pending Orders: n/a Pending Results/Labs:n/a Pending MD notification:n/a Latest Vital Signs: Temperature 97.2 , Pulse 80 , B/P 151 /91 , Respiratory Rate 20 , O2 SAT 97 , Room Air, O2 Flow Rate . Vital Sign Comment: stable Latest Manzanares Fall Score: 45 Fall Risk: High Risk Safety Measures: Call light Within Reach, Bed Alarm Zone 1, Side Rails Side Rails x2, Bed position Low and Locked. Fall Precautions: Yellow Socks Yellow Gown Door Sign Patient Fall Education Report given to ELIESER Georges.
--- NOTE | 2020-05-12 19:38 | NUR ---
NURSE NOTES: Received a pt on the bed awake,A&Ox4, and verbal. Pt has no sob,fever,pain and cough at the moment. Iv is intact and asymptomatic. seizure perc applied. Bed is in the lowest position,locked and call light within reach. We will keep monitoring the pt.
[2020-05-12 20:00] VITALS: BP 146/78
[2020-05-12] MEDS: Atorvastatin 20mg tab ORAL SCH (20:23)
--- NOTE | 2020-05-12 23:03 | NUR ---
HAND-OFF: Report given to ELIESER Georges.
[2020-05-13] VITALS: BP 139/68
[2020-05-13 04:00] VITALS: BP 135/72
[2020-05-13] MEDS: Morphine Sulfate 4mg/ml Inj (IV USE ONLY) IVP PRN ×3 (04:21→20:09)
[2020-05-13] MEDS: Heparin 5000 units/ml inj SUBQ SCH ×3 (05:32→22:31)
[2020-05-13] MEDS: NovoLOG Insulin Flexpen SUBQ SCH ×4 (05:48→20:18)
--- NOTE | 2020-05-13 06:32 | NUR ---
NURSE HAND-OFF: Important Events on Shift:na Patient Status: stable Diet: ccho Pending Orders: Pending Results/Labs: Pending MD notification: Latest Vital Signs: Temperature 97.3 , Pulse 81 , B/P 135 /72 , Respiratory Rate 17 , O2 SAT 97 , Room Air, O2 Flow Rate . Vital Sign Comment: Latest Manzanares Fall Score: 45 Fall Risk: High Risk Safety Measures: Call light Within Reach, Bed Alarm Zone 1, Side Rails Side Rails x2, Bed position Low and Locked. Fall Precautions: Yellow Socks Yellow Gown Door Sign Patient Fall Education.
[2020-05-13 07:34] LABS: BASOPHILS % (AUTO) 0.7 % (0.0-2.0); HEMATOCRIT 38.3 % (42.0-52.0); HEMOGLOBIN 12.5 G/DL (14.2-18.0); LYMPHOCYTES % (AUTO) 31.6 % (20.0-45.0); MEAN CORPUSCULAR VOLUME 85 FL (80-99); MONOCYTES % (AUTO) 6.1 % (1.0-10.0); NEUTROPHILS % (AUTO) 60.6 % (45.0-75.0); PLATELET COUNT 226 K/UL (150-450); RED BLOOD COUNT 4.51 M/UL (4.70-6.10); RED CELL DISTRIBUTION WIDTH 12.3 % (11.6-14.8); WHITE BLOOD COUNT 5.3 K/UL (4.8-10.8)
--- NOTE | 2020-05-13 07:40 | NUR ---
NURSE NOTES: Received report from ELIESER Georges. Patient received lying in hospital bed in high roberson's position, eating breakfast. Patient is AAO x 4, able to make needs known, bedbound but able to turn himself. Pt is on RA in no apparent respiratory distress and no c/o pain at this time. Pt's last BS is 210. LBM on 05/12/20. L foot wound left open to air. GIL 22g and RFA 22g pIV noted. Planned for DC home pending medical clearance. Bed locked in lowest position, side rails up x 2, call light within reach, bed alarm on. Will continue POC.
--- NOTE | 2020-05-13 07:54 | NUR ---
HAND-OFF: Report given to ELIESER Clinton.
[2020-05-13 08:00] VITALS: BP 127/89
[2020-05-13] MEDS: Aspirin EC 81mg tab ORAL SCH (08:18)
--- NOTE | 2020-05-13 09:06 | General Progress Note ---
Subjective Allergies: Coded Allergies: No Known Allergies (Unverified , 05/07/14) Subjective 05/11 with left foot ulcer c/o pain and is on abx currently, seen by pod 05/12 is on asa, statin, plavix and seen by [facility], to get angiog outpatient 05/13: pt is resting in bed no events overnight. Objective Last 24 Hour Vital Signs Date Time Temp Pulse Resp B/P (MAP) Pulse Ox O2 Delivery O2 Flow Rate FiO2 05/13/20 08:00 98.1 83 18 127/89 (102) 95 05/13/20 04:00 97.3 81 17 135/72 (93) 97 05/13/20 00:00 97.2 82 19 139/68 (91) 98 05/12/20 21:40 97.2 05/12/20 21:00 Room Air 05/12/20 20:00 97.5 84 18 146/78 (100) 97 05/12/20 16:00 97.2 80 20 151/91 (111) 97 05/12/20 12:00 97.9 91 20 142/90 (107) 98 Intake and Output 05/12/20 05/13/20 19:00 07:00 Intake Total 1705.837 ml 500 ml Output Total 1600 ml 1000 ml Balance 105.837 ml -500 ml Intake Oral 1180 ml 500 ml IV Total 525.837 ml Output Urine Total 1600 ml 1000 ml Laboratory Tests 05/12/20 11:16: POC Whole Blood Glucose [Pending] 05/12/20 16:24: POC Whole Blood Glucose 261H 05/12/20 20:30: POC Whole Blood Glucose [Pending] 05/13/20 06:25: White Blood Count 5.3, Red Blood Count 4.51L, Hemoglobin 12.5L, Hematocrit 38.3L , Mean Corpuscular Volume 85, Mean Corpuscular Hemoglobin 27.7, Mean Corpuscular Hemoglobin Concent 32.6, Red Cell Distribution Width 12.3, Platelet Count 226, Mean Platelet Volume 6.6, Neutrophils (%) (Auto) 60.6, Lymphocytes (%) (Auto) 31.6, Monocytes (%) (Auto) 6.1, Eosinophils (%) (Auto) 1.0, Basophils (%) (Auto) 0.7 Height (Feet): 5 Height (Inches): 11.00 Weight (Pounds): 155 Objective Objective General Appearance: no apparent distress EENT: PERRL/EOMI Neck: supple Cardiovascular: normal rate Respiratory/Chest: normal breath sounds Abdomen: soft Extremities: non-tender, left iner foot ulceration Assessment/Plan Assessment/Plan: Assessment/Plan: 1 cellulitis lt foot 2 non healing ulcer 3 pvd 4 dm type 2 5 dm neuropathy iv abx per ID wound and podietarty consult cont ss, aacue check pain management consult on abx vanc/zosyn outpatient angiogram Chitra Palomares NP May 13, 2020 09:06
[2020-05-13 12:00] VITALS: BP 168/95
--- NOTE | 2020-05-13 12:13 | Surgery Progress Note ---
Surgery Progress Note Subjective Symptoms: improved, tolerating diet, passing flatus, BM Additional Comments wants more physical therapy discussed vascular plan and recs with patient no n/v Objective Last 24 Hour Vital Signs Date Time Temp Pulse Resp B/P (MAP) Pulse Ox O2 Delivery O2 Flow Rate FiO2 05/13/20 09:00 Room Air 05/13/20 08:00 98.1 83 18 127/89 (102) 95 05/13/20 04:00 97.3 81 17 135/72 (93) 97 05/13/20 00:00 97.2 82 19 139/68 (91) 98 05/12/20 21:40 97.2 05/12/20 21:00 Room Air 05/12/20 20:00 97.5 84 18 146/78 (100) 97 05/12/20 16:00 97.2 80 20 151/91 (111) 97 I&O Intake and Output 05/12/20 05/13/20 19:00 07:00 Intake Total 1705.837 ml 500 ml Output Total 1600 ml 1000 ml Balance 105.837 ml -500 ml Intake Oral 1180 ml 500 ml IV Total 525.837 ml Output Urine Total 1600 ml 1000 ml Dressing: dry Wound: clean Cardiovascular: RSR Respiratory: clear Abdomen: soft, non-tender, present bowel sounds Extremities: no edema, no tenderness, other Laboratory Tests Test 05/12/20 16:24 05/12/20 20:30 05/13/20 06:25 05/13/20 11:39 POC Whole Blood Glucose 261 MG/DL (74-106) H Pending 290 MG/DL (74-106) H White Blood Count 5.3 K/UL (4.8-10.8) Red Blood Count 4.51 M/UL (4.70-6.10) L Hemoglobin 12.5 G/DL (14.2-18.0) L Hematocrit 38.3 % (42.0-52.0) L Mean Corpuscular Volume 85 FL (80-99) Mean Corpuscular Hemoglobin 27.7 PG (27.0-31.0) Mean Corpuscular Hemoglobin Concent 32.6 G/DL (32.0-36.0) Red Cell Distribution Width 12.3 % (11.6-14.8) Platelet Count 226 K/UL (150-450) Mean Platelet Volume 6.6 FL (6.5-10.1) Neutrophils (%) (Auto) 60.6 % (45.0-75.0) Lymphocytes (%) (Auto) 31.6 % (20.0-45.0) Monocytes (%) (Auto) 6.1 % (1.0-10.0) Eosinophils (%) (Auto) 1.0 % (0.0-3.0) Basophils (%) (Auto) 0.7 % (0.0-2.0) Plan Problems: (1) Osteomyelitis of ankle or foot, acute Assessment & Plan: MRI ordered pending results Patient is status post transmetatarsal amputation. There is a wire in the soft tissues dorsal to the fifth metatarsal stump. No acute fractures. No definite osseous erosions or unusual periosteal reaction Impression: Postoperative changes, as described No definite acute abnormality. No plain radiographic evidence of acute osteomyelitis. Note, however, limited sensitivity of plain radiographs for such. Consider MRI or bone scan for better characterization if there is high clinical suspicion (2) Cellulitis Assessment & Plan: abx as per ID keep leg elevated with pillows (3) Diabetic foot ulcer (4) Epileptic seizure, generalized (5) Diabetes mellitus (6) CAD (coronary artery disease) (7) Cardiomyopathy (8) PVD (peripheral vascular disease) Assessment & Plan: vascular consult placed Leg duplex and CT angio Abx per ID Antiplatelet and statin therapy & DVT precautions Podiatry f/u Smoking abstinence Will schedule patient for selective left leg angiogram to assess for revascularization Daily Ecotrin 81mg, Plavix 75mg and Statin Abx per ID Ok for d/c planning and will schedule the patient for selective left leg angiogram & revascularization as outpatient Abdominal aorta: There is hard and soft mural plaquing of the abdominal aorta. This does not result in any significant narrowing. The celiac axis demonstrates mild origin stenosis but no significant narrowing. There is classic branching anatomy and patency of the proximal branches. The superior mesenteric artery demonstrates considerable mural plaquing resulting in mild stenosis proximally. The proximal branches are all widely patent. Patent nonstenotic inferior mesenteric artery. Single right and left renal arteries, no significant stenosis demonstrated. Right lower extremity: Extensive hard and soft mural plaquing of but no significant stenosis of the common and external iliac arteries. There is a moderate to severe stenosis of the internal iliac origin. Patent nonstenotic common fe moral artery. There is origin occlusion of the superficial femoral artery. There are areas of segmental reconstitution of the superficial femoral artery distally. The proximal popliteal artery reconstitutes and then reoccludes. It again reconstitutes just above the knee joint level, where it is severely diseased and then occludes below the knee joint level. The anterior tibial artery is essentially occluded over its entire length, although there are a few very small focal areas of segmental reconstitution noted. The dorsalis pedis artery reconstitutes well below the ankle from peroneal collaterals. There is origin occlusion of the tibioperoneal trunk, which does reconstitute distally. The posterior tibial artery appears to be patent, although extensive calcification precludes exclusion of significant stenoses. It forms a plantar vessel. The peroneal artery is patent, small in caliber, and demonstrates multiple focal at least moderate stenoses. It does reach the ankle. Left lower extremity: There is considerable hard and soft plaque involving the common and external iliac arteries, but no significant stenosis is demonstrated. The internal iliac artery and proximal branches are patent. Patent nonstenotic common femoral and profunda femoral arteries. Flush origin occlusion of the superficial femoral artery is demonstrated. The superficial femoral artery is occluded over its entire length, as is the popliteal artery. The anterior tibial artery is essentially occluded over its entire length, although there may be a few foci of segmental reconstitution. The dorsalis pedis artery reconstitutes well below the ankle via peroneal collaterals. The tibioperoneal trunk is occluded. The peroneal artery is patent, although demonstrates multiple stenoses, at least moderate. The posterior tibial artery is occluded over its entire length. Nonvascular: The liver, gallbladder, bile ducts, pancreas, spleen, adrenals, kidneys are all unremarkable. No retroperitoneal or mesenteric mass or adenopathy. The prostate is enlarged. No pelvic mass or adenopathy there is an unusual eggshell calcification in the left seminal vesicle. The appendix is normal. There is considerable stool throughout the colon. No evidence of diverticulosis or diverticulitis. No small bowel distention. No free or loculated intraperitoneal gas or fluid is evident. The included lung bases are essentially clear. The bones are unremarkable except for mild degenerative spondylosis changes IMPRESSION: Evidence of severe left lower extremity vascular disease, with complete occlusions of the entire lengths of the superficial femoral, popliteal, anterior tibial and posterior tibial arteries. There is reconstitution of the peroneal artery which forms the only patent tibial vessel. This is at least moderately disease. The peroneal artery does reconstitute the dorsalis pedis artery Evidence of severe right lower extremity peripheral vascular disease, with complete occlusions of the entire length of the superficial femoral artery. The popliteal artery is essentially occluded over its length, although there are some foci of segmental reconstitution. There are also complete occlusions of the posterior tibial and anterior tibial arteries. The reconstituted peroneal artery forms the only patent tibial vessel. (9) History of CVA (cerebrovascular accident) Josafat Narvaez May 13, 2020 12:13
[2020-05-13] MEDS: LORazepam 0.5mg tab ORAL PRN (14:02)
[2020-05-13 16:00] VITALS: BP 157/68
--- NOTE | 2020-05-13 18:49 | NUR ---
NURSE HAND-OFF: Important Events on Shift: no acute events during shift, pain managed with PRN morphine x 1, anxiety managed with Ativan x 1, max BS 314, insulin given as ordered Patient Status: stable Diet: CCHO Medium Pending Orders: DC planning Pending Results/Labs: n/a Pending MD notification: n/a Latest Vital Signs: Temperature 97.2 , Pulse 83 , B/P 157 /68 , Respiratory Rate 20 , O2 SAT 95 , Room Air, O2 Flow Rate . Vital Sign Comment: monitor BP Latest Manzanares Fall Score: 45 Fall Risk: High Risk Safety Measures: Call light Within Reach, Bed Alarm Zone 1, Side Rails Side Rails x2, Bed position Low and Locked. Fall Precautions: Yellow Socks Yellow Gown Door Sign Patient Fall Education Addendum: 05/13/20 at 1931 by Syed Lawton RN HAND-OFF: Report given to ELIESER Hoffman. Endorsed POC.
--- NOTE | 2020-05-13 19:15 | NUR ---
NURSE NOTES: RECEIVED PATIENT FROM ELIESER CONRAD. PATIENT IS AWAKE, RESTING IN BED, AAOX3, FORGETFUL. PATIENT IS ON ROOM AIR, NO ACUTE DISTRESS NOTED. WOUND ON LEFT LEG OPEN TO AIR. PIV ON RIGHT UPPER ARM AND RIGHT FOREARM INTACT AND PATENT. FALL PRECAUTION IMPLEMENTED. YELLOW GOWN, YELLOW SOCKS AND YELLOW ARMBAND IN PLACE, COMMUNICATED WITH STAFF TO PERFORM FREQUENT ROUNDING. ROOM IS CLOSE TO NURSING STATION. BED IS LOCKED AND LOW, BED ALARMS ACTIVE, SIDE RAILS UP X2 AND CALL LIGHT IS WITHIN REACH. WILL CONTINUE TO MONITOR.
[2020-05-13 20:00] VITALS: BP 156/92
[2020-05-13] MEDS: Atorvastatin 20mg tab ORAL SCH (20:08)
[2020-05-14 04:00] VITALS: BP 149/88
[2020-05-14 05:09] LABS: EOSINOPHILS % (AUTO) 0.9 % (0.0-3.0); HEMATOCRIT 38.5 % (42.0-52.0); HEMOGLOBIN 12.7 G/DL (14.2-18.0); LYMPHOCYTES % (AUTO) 19.9 % (20.0-45.0); MEAN CORPUSCULAR VOLUME 85 FL (80-99); NEUTROPHILS % (AUTO) 71.3 % (45.0-75.0); PLATELET COUNT 205 K/UL (150-450); RED BLOOD COUNT 4.53 M/UL (4.70-6.10); RED CELL DISTRIBUTION WIDTH 12.5 % (11.6-14.8); WHITE BLOOD COUNT 5.7 K/UL (4.8-10.8)
[2020-05-14 05:33] LABS: ANION GAP 6 mmol/L (5-15); BLOOD UREA NITROGEN 18 mg/dL (7-18); CALCIUM 9.1 MG/DL (8.5-10.1); CARBON DIOXIDE 28 MMOL/L (21-32); CHLORIDE 103 MMOL/L (98-107); CREATININE 1.3 MG/DL (0.55-1.30); POTASSIUM 4.4 MMOL/L (3.5-5.1); SODIUM 137 MMOL/L (136-145)
[2020-05-14] MEDS: Heparin 5000 units/ml inj SUBQ SCH ×3 (05:39→21:15)
[2020-05-14] MEDS: NovoLOG Insulin Flexpen SUBQ SCH ×4 (05:39→21:14)
--- NOTE | 2020-05-14 07:11 | General Progress Note ---
Subjective Constitutional: Denies: no symptoms, chills, diaphoresis, fever, malaise, weakness, other HEENT: Denies: no symptoms, eye pain, blurred vision, tearing, double vision, ear pain, ear discharge, nose pain, nose congestion, throat pain, throat swelling, mouth pain, mouth swelling, other Cardiovascular: Denies: no symptoms, chest pain, edema, irregular heart rate, lightheadedness, palpitations, syncope, other Respiratory: Denies: no symptoms, cough, orthopnea, shortness of breath, SOB with excertion, SOB at rest, sputum, stridor, wheezing, other Gastrointestinal/Abdominal: Denies: no symptoms, abdomen distended, abdominal pain, black stools, tarry stools, blood in stool, constipated, diarrhea, difficulty swallowing, nausea, poor appetite, poor fluid intake, rectal bleeding, vomiting, other Neurologic/Psychiatric: Denies: no symptoms, anxiety, depressed, emotional problems, headache, numbness, paresthesia, pre-existing deficit, seizure, tingling, tremors, weakness, other Endocrine: Denies: no symptoms, excessive sweating, flushing, intolerance to cold, intolerance to heat, increased hunger, increased thirst, increased urine, unexplained weight gain, unexplained weight loss, other Hematologic/Lymphatic: Denies: no symptoms, anemia, easy bleeding, easy bruising, other Allergies: Coded Allergies: No Known Allergies (Unverified , 05/07/14) Subjective 05/11 with left foot ulcer c/o pain and is on abx currently, seen by pod 05/12 is on asa, statin, plavix and seen by [facility], to get angiog outpatient 05/13: pt is resting in bed no events overnight. 05/14 meds noted, remains with minor leg pain, no bleeding, on abx Objective Last 24 Hour Vital Signs Date Time Temp Pulse Resp B/P (MAP) Pulse Ox O2 Delivery O2 Flow Rate FiO2 05/14/20 04:00 98.1 76 17 149/88 (108) 95 05/13/20 21:00 Room Air 05/13/20 20:00 97.3 80 17 156/92 (113) 97 05/13/20 16:00 97.2 83 20 157/68 (97) 95 05/13/20 12:00 97.9 80 16 168/95 (119) 98 05/13/20 09:00 Room Air 05/13/20 08:00 98.1 83 18 127/89 (102) 95 Intake and Output 05/13/20 05/14/20 19:00 07:00 Intake Total 1090.000 ml 533.334 ml Output Total 950 ml Balance 140.000 ml 533.334 ml Intake Oral 840 ml 200 ml IV Total 250.000 ml 333.334 ml Output Urine Total 950 ml # Voids 1 5 # Bowel Movements 1 Laboratory Tests 05/13/20 11:39: POC Whole Blood Glucose 290H 05/13/20 16:45: POC Whole Blood Glucose 314H 05/13/20 20:14: POC Whole Blood Glucose 239H 05/14/20 04:20: White Blood Count 5.7, Red Blood Count 4.53L, Hemoglobin 12.7L, Hematocrit 38.5L , Mean Corpuscular Volume 85, Mean Corpuscular Hemoglobin 27.9, Mean Corpuscular Hemoglobin Concent 32.9, Red Cell Distribution Width 12.5, Platelet Count 205, Mean Platelet Volume 6.4L, Neutrophils (%) (Auto) 71.3, Lymphocytes (%) (Auto) 19.9L, Monocytes (%) (Auto) 7.0, Eosinophils (%) (Auto) 0.9, Basophils (%) (Auto) 1.0, Sodium Level 137, Potassium Level 4.4, Chloride Level 103, Carbon Dioxide Level 28, Anion Gap 6, Blood Urea Nitrogen 18, Creatinine 1.3, Estimat Glomerular Filtration Rate > 60, Glucose Level 384H, Calcium Level 9.1, Vancomycin Level Trough 16.7H 05/14/20 05:37: POC Whole Blood Glucose 368H Height (Feet): 5 Height (Inches): 11.00 Weight (Pounds): 155 Objective General Appearance: no apparent distress EENT: PERRL/EOMI Neck: supple Cardiovascular: normal rate Respiratory/Chest: normal breath sounds Abdomen: soft Extremities: non-tender, left iner foot ulceration Assessment/Plan Assessment/Plan: 1 cellulitis lt foot 2 non healing ulcer 3 pvd 4 dm type 2 5 dm neuropathy iv abx per ID wound and podiatry consult cont ss, aacue check pain management consult on abx vanc/zosyn->vanc heparin sq ppx outpatient angiogram Lorenzo Escobar MD May 14, 2020 07:11
--- NOTE | 2020-05-14 07:36 | NUR ---
NURSE HAND-OFF: Important Events on Shift: NO ACUTE EVENTS, PATIENT STABLE. Patient Status: STABLE Diet: CCHO (MED) Pending Orders: DISCHARGE PLANNING Pending Results/Labs: CBC Pending MD notification: N/A Latest Vital Signs: Temperature 98.1 , Pulse 76 , B/P 149 /88 , Respiratory Rate 17 , O2 SAT 95 , Room Air, O2 Flow Rate . Vital Sign Comment: STABLE Latest Manzanares Fall Score: 45 Fall Risk: High Risk Safety Measures: Call light Within Reach, Bed Alarm Zone 1, Side Rails Side Rails x2, Bed position Low and Locked. Fall Precautions: Yellow Socks Yellow Gown Door Sign Patient Fall Education Report given to ELIESER TO.
[2020-05-14 08:00] VITALS: BP 143/79
--- NOTE | 2020-05-14 08:00 | NUR ---
NURSE NOTES: received patient lying in bed, awake, alert, oriented x3, in NAD. Left dorsal foot with wound SUMA, pedal pulse present. Patient is on fall precautions, wears yellow gown, socks and armband. Fall Precaution sign at the door. Notified nurse school bus driver/teacher assistant of the fall risk. Patient has GIL and RFA IV accesses, pervious and saline locked. Bed locked at the lowest position possible, call light within easy reach, side rails upx2. Will continue to monitor patient and follow up with the plan of care.
[2020-05-14] MEDS: Aspirin EC 81mg tab ORAL SCH (08:16)
[2020-05-14] MEDS: Morphine Sulfate 4mg/ml Inj (IV USE ONLY) IVP PRN ×3 (08:19→20:53)
[2020-05-14] MEDS: LORazepam 0.5mg tab ORAL PRN (09:47)
[2020-05-14 12:00] VITALS: BP 166/93
[2020-05-14 16:00] VITALS: BP 159/98
--- NOTE | 2020-05-14 17:56 | Surgery Progress Note ---
Surgery Progress Note Subjective Additional Comments labs improved exam stable comfortable no complaints Objective Last 24 Hour Vital Signs Date Time Temp Pulse Resp B/P (MAP) Pulse Ox O2 Delivery O2 Flow Rate FiO2 05/14/20 16:00 97.9 80 21 159/98 (118) 97 05/14/20 15:01 97.7 05/14/20 12:00 97.7 75 20 166/93 (117) 98 05/14/20 10:17 96 20 143/79 98 05/14/20 09:47 96 20 143/79 98 05/14/20 09:00 Room Air 05/14/20 08:49 98.1 05/14/20 08:00 98.6 96 20 143/79 (100) 98 05/14/20 04:00 98.1 76 17 149/88 (108) 95 05/13/20 21:00 Room Air 05/13/20 20:00 97.3 80 17 156/92 (113) 97 I&O Intake and Output 05/13/20 05/14/20 19:00 07:00 Intake Total 1090.000 ml 533.334 ml Output Total 950 ml Balance 140.000 ml 533.334 ml Intake Oral 840 ml 200 ml IV Total 250.000 ml 333.334 ml Output Urine Total 950 ml # Voids 1 5 # Bowel Movements 1 Dressing: dry Wound: clean Cardiovascular: RSR Respiratory: clear Abdomen: soft, non-tender, present bowel sounds Extremities: no edema, no tenderness, no cyanosis, other Laboratory Tests Test 05/13/20 20:14 05/14/20 04:20 05/14/20 05:37 POC Whole Blood Glucose 239 MG/DL (74-106) H 368 MG/DL (74-106) H White Blood Count 5.7 K/UL (4.8-10.8) Red Blood Count 4.53 M/UL (4.70-6.10) L Hemoglobin 12.7 G/DL (14.2-18.0) L Hematocrit 38.5 % (42.0-52.0) L Mean Corpuscular Volume 85 FL (80-99) Mean Corpuscular Hemoglobin 27.9 PG (27.0-31.0) Mean Corpuscular Hemoglobin Concent 32.9 G/DL (32.0-36.0) Red Cell Distribution Width 12.5 % (11.6-14.8) Platelet Count 205 K/UL (150-450) Mean Platelet Volume 6.4 FL (6.5-10.1) L Neutrophils (%) (Auto) 71.3 % (45.0-75.0) Lymphocytes (%) (Auto) 19.9 % (20.0-45.0) L Monocytes (%) (Auto) 7.0 % (1.0-10.0) Eosinophils (%) (Auto) 0.9 % (0.0-3.0) Basophils (%) (Auto) 1.0 % (0.0-2.0) Sodium Level 137 MMOL/L (136-145) Potassium Level 4.4 MMOL/L (3.5-5.1) Chloride Level 103 MMOL/L (98-107) Carbon Dioxide Level 28 MMOL/L (21-32) Anion Gap 6 mmol/L (5-15) Blood Urea Nitrogen 18 mg/dL (7-18) Creatinine 1.3 MG/DL (0.55-1.30) Estimat Glomerular Filtration Rate > 60 mL/min (>60) Glucose Level 384 MG/DL (74-106) H Calcium Level 9.1 MG/DL (8.5-10.1) Vancomycin Level Trough 16.7 ug/mL (5.0-12.0) H Plan Problems: (1) Osteomyelitis of ankle or foot, acute Assessment & Plan: MRI ordered pending results Patient is status post transmetatarsal amputation. There is a wire in the soft tissues dorsal to the fifth metatarsal stump. No acute fractures. No defi nite osseous erosions or unusual periosteal reaction Impression: Postoperative changes, as described No definite acute abnormality. No plain radiographic evidence of acute osteomyelitis. Note, however, limited sensitivity of plain radiographs for such. Consider MRI or bone scan for better characterization if there is high clinical suspicion (2) Cellulitis Assessment & Plan: abx as per ID keep leg elevated with pillows (3) Diabetic foot ulcer (4) Epileptic seizure, generalized (5) Diabetes mellitus (6) CAD (coronary artery disease) (7) Cardiomyopathy (8) PVD (peripheral vascular disease) Assessment & Plan: vascular consult placed Leg duplex and CT angio Abx per ID Antiplatelet and statin therapy & DVT precautions Podiatry f/u Smoking abstinence Will schedule patient for selective left leg angiogram to assess for revascularization Daily Ecotrin 81mg, Plavix 75mg and Statin Abx per ID Ok for d/c planning and will schedule the patient for selective left leg angiogram & revascularization as outpatient Abdominal aorta: There is hard and soft mural plaquing of the abdominal aorta. This does not result in any significant narrowing. The celiac axis demonstrates mild origin stenosis but no significant narrowing. There is classic branching anatomy and patency of the proximal branches. The superior mesenteric artery demonstrates considerable mural plaquing resulting in mild stenosis proximally. The proximal branches are all widely patent. Patent nonstenotic inferior mesenteric artery. Single right and left renal arteries, no significant stenosis demonstrated. Right lower extremity: Extensive hard and soft mural plaquing of but no significant stenosis of the common and external iliac arteries. There is a moderate to severe stenosis of the internal iliac origin. Patent nonstenotic common femoral artery. There is origin occlusion of the superficial femoral artery. There are areas of segmental reconstitution of the superficial femoral artery distally. The proximal popliteal artery reconstitutes and then reoccludes. It again reconstitutes just above the knee joint level, where it is severely diseased and then occludes below the knee joint level. The anterior tibial artery is essentially occluded over its entire length, although there are a few very small focal areas of segmental reconstitution noted. The dorsalis pedis artery reconstitutes well below the ankle from peroneal collaterals. There is origin occlusion of the tibioperoneal trunk, which does reconstitute distally. The posterior tibial artery appears to be patent, although extensive calcification precludes exclusion of significant stenoses. It forms a plantar vessel. The peroneal artery is patent, small in caliber, and demonstrate s multiple focal at least moderate stenoses. It does reach the ankle. Left lower extremity: There is considerable hard and soft plaque involving the common and external iliac arteries, but no significant stenosis is demonstrated. The internal iliac artery and proximal branches are patent. Patent nonstenotic common femoral and profunda femoral arteries. Flush origin occlusion of the superficial femoral artery is demonstrated. The superficial femoral artery is occluded over its entire length, as is the popliteal artery. The anterior tibial artery is essentially occluded over its entire length, although there may be a few foci of segmental reconstitution. The dorsalis pedis artery reconstitutes well below the ankle via peroneal collaterals. The tibioperoneal trunk is occluded. The peroneal artery is patent, although demonstrates multiple stenoses, at least moderate. The posterior tibial artery is occluded over its entire length. Nonvascular: The liver, gallbladder, bile ducts, pancreas, spleen, adrenals, kidneys are all unremarkable. No retroperitoneal or mesenteric mass or adenopathy. The prostate is enlarged. No pelvic mass or adenopathy there is an unusual eggshell calcification in the left seminal vesicle. The appendix is normal. There is considerable stool throughout the colon. No evidence of diverticulosis or diverticulitis. No small bowel distention. No free or loculated intraperitoneal gas or fluid is evident. The included lung bases are essentially clear. The bones are unremarkable except for mild degenerative spondylosis changes IMPRESSION: Evidence of severe left lower extremity vascular disease, with complete occlusions of the entire lengths of the superficial femoral, popliteal, anterior tibial and posterior tibial arteries. There is reconstitution of the peroneal artery which forms the only patent tibial vessel. This is at least moderately disease. The peroneal artery does reconstitute the dorsalis pedis artery Evidence of severe right lower extremity peripheral vascular disease, with c omplete occlusions of the entire length of the superficial femoral artery. The popliteal artery is essentially occluded over its length, although there are some foci of segmental reconstitution. There are also complete occlusions of the posterior tibial and anterior tibial arteries. The reconstituted peroneal artery forms the only patent tibial vessel. (9) History of CVA (cerebrovascular accident) Josafat Narvaez May 14, 2020 17:56
--- NOTE | 2020-05-14 19:12 | NUR ---
NURSE HAND-OFF: Important Events on Shift:[] Patient Status: [stable] Diet: [CCHO Medium] Pending Orders: [cbc] Pending Results/Labs:[] Pending MD notification:[] Latest Vital Signs: Temperature 97.9 , Pulse 80 , B/P 159 /98 , Respiratory Rate 21 , O2 SAT 97 , Room Air, O2 Flow Rate . Vital Sign Comment: [] Latest [place] Fall Score: 45 Fall Risk: High Risk Safety Measures: Call light Within Reach, Bed Alarm Zone 1, Side Rails Side Rails x2, Bed position Low and Locked. Fall Precautions: Yellow Socks Yellow Gown Door Sign Patient Fall Education Report given to [RN Miley Herrera].
--- NOTE | 2020-05-14 19:20 | NUR ---
NURSE NOTES: RECEIVED PATIENT FROM ELIESER TO. PATIENT IS AWAKE, RESTING IN BED, AAOX3, FORGETFUL. PATIENT IS ON ROOM AIR, NO ACUTE DISTRESS NOTED. WOUND ON LEFT LEG OPEN TO AIR. PIV ON RIGHT UPPER ARM AND RIGHT FOREARM INTACT AND PATENT. FALL PRECAUTION IMPLEMENTED. YELLOW GOWN, YELLOW SOCKS AND YELLOW ARMBAND IN PLACE, COMMUNICATED WITH STAFF TO PERFORM FREQUENT ROUNDING. ROOM IS CLOSE TO NURSING STATION. BED IS LOCKED AND LOW, BED ALARMS ACTIVE, SIDE RAILS UP X2 AND CALL LIGHT IS WITHIN REACH. WILL CONTINUE TO MONITOR.
[2020-05-14 20:00] VITALS: BP 145/98
[2020-05-14] MEDS: Atorvastatin 20mg tab ORAL SCH (20:53)
[2020-05-15] VITALS: BP 153/93
[2020-05-15] MEDS: Heparin 5000 units/ml inj SUBQ SCH ×3 (05:12→22:00)
[2020-05-15] MEDS: NovoLOG Insulin Flexpen SUBQ SCH ×4 (06:39→21:00)
--- NOTE | 2020-05-15 07:07 | General Progress Note ---
Subjective HEENT: Denies: no symptoms, eye pain, blurred vision, tearing, double vision, ear pain, ear discharge, nose pain, nose congestion, throat pain, throat swelling, mouth pain, mouth swelling, other Cardiovascular: Denies: no symptoms, chest pain, edema, irregular heart rate, lightheadedness, palpitations, syncope, other Respiratory: Denies: no symptoms, cough, orthopnea, shortness of breath, SOB with excertion, SOB at rest, sputum, stridor, wheezing, other Gastrointestinal/Abdominal: Denies: no symptoms, abdomen distended, abdominal pain, black stools, tarry stools, blood in stool, constipated, diarrhea, difficulty swallowing, nausea, poor appetite, poor fluid intake, rectal bleeding, vomiting, other Genitourinary: Denies: no symptoms, burning, discharge, frequency, flank pain, hematuria, incontinence, pain, urgency, other Neurologic/Psychiatric: Denies: no symptoms, anxiety, depressed, emotional problems, headache, numbness, paresthesia, pre-existing deficit, seizure, tingling, tremors, weakness, other Endocrine: Denies: no symptoms, excessive sweating, flushing, intolerance to cold, intolerance to heat, increased hunger, increased thirst, increased urine, unexplained weight gain, unexplained weight loss, other Allergies: Coded Allergies: No Known Allergies (Unverified , 05/07/14) Subjective 05/11 with left foot ulcer c/o pain and is on abx currently, seen by pod 05/12 is on asa, statin, plavix and seen by [facility], to get angiog outpatient 05/13: pt is resting in bed no events overnight. 05/14 meds noted, remains with minor leg pain, no bleeding, on abx 05/15 still c/o lower ext pain, no bleeding, labs noted, no major changes Objective Last 24 Hour Vital Signs Date Time Temp Pulse Resp B/P (MAP) Pulse Ox O2 Delivery O2 Flow Rate FiO2 05/15/20 00:00 97.9 67 18 153/93 (113) 97 05/14/20 21:00 Room Air 05/14/20 20:00 98.1 85 17 145/98 (114) 95 05/14/20 16:00 97.9 80 21 159/98 (118) 97 05/14/20 15:01 97.7 05/14/20 12:00 97.7 75 20 166/93 (117) 98 05/14/20 10:17 96 20 143/79 98 05/14/20 09:47 96 20 143/79 98 05/14/20 09:00 Room Air 05/14/20 08:49 98.1 05/14/20 08:00 98.6 96 20 143/79 (100) 98 Intake and Output 05/14/20 05/15/20 19:00 07:00 Intake Total 250.000 ml 333.334 ml Output Total 1300 ml 1000 ml Balance -1050.000 ml -666.666 ml IV Total 250.000 ml 333.334 ml Output Urine Total 1300 ml 1000 ml Height (Feet): 5 Height (Inches): 11.00 Weight (Pounds): 155 Objective General Appearance: no apparent distress EENT: PERRL/EOMI Neck: supple Cardiovascular: normal rate Respiratory/Chest: normal breath sounds Abdomen: soft Extremities: non-tender, left iner foot ulceration Assessment/Plan Assessment/Plan: 1 cellulitis lt foot 2 non healing ulcer 3 pvd 4 dm type 2 5 dm neuropathy iv abx per ID wound and podiatry consult cont ss, aacue check pain management consult on abx vanc/zosyn->vanc heparin sq ppx outpatient angiogram Lorenzo Escobar MD May 15, 2020 07:07
[2020-05-15] MEDS: Morphine Sulfate 4mg/ml Inj (IV USE ONLY) IVP PRN ×3 (07:13→19:40)
[2020-05-15 07:32] LABS: EOSINOPHILS % (AUTO) 1.3 % (0.0-3.0); HEMATOCRIT 39.6 % (42.0-52.0); HEMOGLOBIN 12.8 G/DL (14.2-18.0); LYMPHOCYTES % (AUTO) 26.5 % (20.0-45.0); MEAN CORPUSCULAR VOLUME 85 FL (80-99); MONOCYTES % (AUTO) 7.8 % (1.0-10.0); NEUTROPHILS % (AUTO) 63.4 % (45.0-75.0); PLATELET COUNT 194 K/UL (150-450); RED BLOOD COUNT 4.65 M/UL (4.70-6.10); RED CELL DISTRIBUTION WIDTH 12.7 % (11.6-14.8); WHITE BLOOD COUNT 5.8 K/UL (4.8-10.8)
--- NOTE | 2020-05-15 07:40 | NUR ---
NURSE NOTES: received patient sitting in bed, accepting breakfast. Patient is oriented x3, in NAD, received pain medication IVP recently. Left dorsal foot with wound [employer]ER, pedal pulse present. Patient is on fall precautions, wears yellow gown, socks and armband. Fall Precaution sign at the door. Notified nurse car rental sales assistant of the fall risk. Patient has GIL and RFA IV accesses, pervious and saline locked. Bed locked at the lowest position possible, locked, call light within easy reach, side rails up x2. Will continue to monitor patient and follow up with the plan of care.
--- NOTE | 2020-05-15 07:44 | NUR ---
HAND-OFF: Report given to ELIESER Haas
[2020-05-15 08:00] VITALS: BP 144/90
[2020-05-15] MEDS: Aspirin EC 81mg tab ORAL SCH (08:19)
[2020-05-15 12:00] VITALS: BP 149/86
--- NOTE | 2020-05-15 12:33 | General Progress Note ---
Subjective Allergies: Coded Allergies: No Known Allergies (Unverified , 05/07/14) Subjective REVIEW OF SYSTEMS: Denies rash, fever, chills, sweating, dizziness, drowsiness, blurred vision, sore throat, or change in weight. No shortness of breath or chest pain. No nausea, vomiting, diarrhea, or blood in the stool or urine. No dysuria. HISTORY OF PRESENT ILLNESS: This is a 70-year-old male who is being seen on the Med/Surg floor of [facility]. Objective Last 24 Hour Vital Signs Date Time Temp Pulse Resp B/P (MAP) Pulse Ox O2 Delivery O2 Flow Rate FiO2 05/15/20 12:00 97.3 65 20 149/86 (107) 96 05/15/20 09:00 Room Air 05/15/20 08:00 97.0 83 20 144/90 (108) 97 05/15/20 07:43 97.9 05/15/20 00:00 97.9 67 18 153/93 (113) 97 05/14/20 21:00 Room Air 05/14/20 20:00 98.1 85 17 145/98 (114) 95 05/14/20 16:00 97.9 80 21 159/98 (118) 97 05/14/20 15:01 97.7 Intake and Output 05/14/20 05/15/20 19:00 07:00 Intake Total 250.000 ml 333.334 ml Output Total 1300 ml 1000 ml Balance -1050.000 ml -666.666 ml IV Total 250.000 ml 333.334 ml Output Urine Total 1300 ml 1000 ml Laboratory Tests 05/15/20 07:00: White Blood Count 5.8, Red Blood Count 4.65L, Hemoglobin 12.8L, Hematocrit 39.6L , Mean Corpuscular Volume 85, Mean Corpuscular Hemoglobin 27.6, Mean Corpuscular Hemoglobin Concent 32.5, Red Cell Distribution Width 12.7, Platelet Count 194, Mean Platelet Volume 6.9, Neutrophils (%) (Auto) 63.4, Lymphocytes (%) (Auto) 26.5, Monocytes (%) (Auto) 7.8, Eosinophils (%) (Auto) 1.3, Basophils (%) (Auto) 1.0 Height (Feet): 5 Height (Inches): 11.00 Weight (Pounds): 155 Objective PHYSICAL EXAMINATION: GENERAL: Alert, awake, and oriented. LUNGS: Decreased breath sounds bilaterally. HEART: S1 and S2 regular. ABDOMEN: Soft, nontender. EXTREMITIES: Left partial foot amputation noted. NEURO: No changes. Assessment/Plan Assessment/Plan: (1) Left LE pain (2) H/O Left LE partial foot amputation (3) Non healing ulcer (4) Peripheral neuropathy Patient will be continued on Morphine and [place]. We will order Robaxin 500mg PO 1 tab Q8H PRN muscle spasm. Rx for [place] 10/325mg 15 tabs was written for patient in anticipation for discharge. D/w Dr. Stanford and he concurred. Dimitry Plaza May 15, 2020 12:33
--- NOTE | 2020-05-15 13:40 | Surgery Progress Note ---
Surgery Progress Note Subjective Additional Comments no acute events comfortable stable tolerating diet no n/v Objective Last 24 Hour Vital Signs Date Time Temp Pulse Resp B/P (MAP) Pulse Ox O2 Delivery O2 Flow Rate FiO2 05/15/20 12:00 97.3 65 20 149/86 (107) 96 05/15/20 09:00 Room Air 05/15/20 08:00 97.0 83 20 144/90 (108) 97 05/15/20 07:43 97.9 05/15/20 00:00 97.9 67 18 153/93 (113) 97 05/14/20 21:00 Room Air 05/14/20 20:00 98.1 85 17 145/98 (114) 95 05/14/20 16:00 97.9 80 21 159/98 (118) 97 05/14/20 15:01 97.7 I&O Intake and Output 05/14/20 05/15/20 19:00 07:00 Intake Total 250.000 ml 333.334 ml Output Total 1300 ml 1000 ml Balance -1050.000 ml -666.666 ml IV Total 250.000 ml 333.334 ml Output Urine Total 1300 ml 1000 ml Dressing: other Cardiovascular: RSR Respiratory: clear Abdomen: soft, present bowel sounds Extremities: no tenderness, no cyanosis Laboratory Tests Test 05/15/20 07:00 White Blood Count 5.8 K/UL (4.8-10.8) Red Blood Count 4.65 M/UL (4.70-6.10) L Hemoglobin 12.8 G/DL (14.2-18.0) L Hematocrit 39.6 % (42.0-52.0) L Mean Corpuscular Volume 85 FL (80-99) Mean Corpuscular Hemoglobin 27.6 PG (27.0-31.0) Mean Corpuscular Hemoglobin Concent 32.5 G/DL (32.0-36.0) Red Cell Distribution Width 12.7 % (11.6-14.8) Platelet Count 194 K/UL (150-450) Mean Platelet Volume 6.9 FL (6.5-10.1) Neutrophils (%) (Auto) 63.4 % (45.0-75.0) Lymphocytes (%) (Auto) 26.5 % (20.0-45.0) Monocytes (%) (Auto) 7.8 % (1.0-10.0) Eosinophils (%) (Auto) 1.3 % (0.0-3.0) Basophils (%) (Auto) 1.0 % (0.0-2.0) Plan Problems: (1) Osteomyelitis of ankle or foot, acute Assessment & Plan: MRI ordered pending results Patient is status post transmetatarsal amputation. There is a wire in the soft tissues dorsal to the fifth metatarsal stump. No acute fractures. No definite osseous erosions or unusual periosteal reaction Impression: Postoperative changes, as described No definite acute abnormality. No plain radiographic evidence of acute osteomyelitis. Note, however, limited sensitivity of plain radiographs for such. Consider MRI or bone scan for better characterization if there is high clinical suspicion (2) Cellulitis Assessment & Plan: abx as per ID keep leg elevated with pillows (3) Diabetic foot ulcer (4) Epileptic seizure, generalized (5) Diabetes mellitus (6) CAD (coronary artery disease) (7) Cardiomyopathy (8) PVD (peripheral vascular disease) Assessment & Plan: vascular consult placed Leg duplex and CT angio Abx per ID Antiplatelet and statin therapy & DVT precautions Podiatry f/u Smoking abstinence Will schedule patient for selective left leg angiogram to assess for revascularization Daily Ecotrin 81mg, Plavix 75mg and Statin Abx per ID Ok for d/c planning and will schedule the patient for selective left leg angiogram & revascularization as outpatient Abdominal aorta: There is hard and soft mural plaquing of the abdominal aorta. This does not result in any significant narrowing. The celiac axis demonstrates mild origin stenosis but no significant narrowing. There is classic branching anatomy and patency of the proximal branches. The superior mesenteric artery demonstrates considerable mural plaquing resulting in mild stenosis proximally. The proximal branches are all widely patent. Patent nonstenotic inferior mesenteric artery. Single right and left renal arteries, no significant stenosis demonstrated. Right lower extremity: Extensive hard and soft mural plaquing of but no significant stenosis of the common and external iliac arteries. There is a moderate to severe stenosis of the internal iliac origin. Patent nonstenotic common femoral artery. There is origin occlusion of the superficial femoral artery. There are areas of segmental reconstitution of the superficial femoral artery distally. The proximal popliteal artery reconstitutes and then reoccludes. It again reconstitutes just above the knee joint level, where it is severely diseased and then occludes below the knee joint level. The anterior tibial artery is essentially occluded over its entire length, although there are a few very small focal areas of segmental reconstitution noted. The dorsalis pedis artery reconstitutes well below the ankle from peroneal collaterals. There is origin occlusion of the tibioperoneal trunk, which does reconstitute distally. The posterior tibial artery appears to be patent, although extensive calcification precludes exclusion of significant stenoses. It forms a plantar vessel. The peroneal artery is patent, small in caliber, and demonstrates multiple focal at least moderate stenoses. It does reach the ankle. Left lower extremity: There is considerable hard and soft plaque involving the common and external iliac arteries, but no significant stenosis is demonstrated. The internal iliac artery and proximal branches are patent. Patent nonstenotic common femoral and profunda femoral arteries. Flush origin occlusion of the superficial femoral artery is demonstrated. The superficial femoral artery is occluded over its entire length, as is the popliteal artery. The anterior tibial artery is essentially occluded over its entire length, although there may be a few foci of segmental reconstitution. The dorsalis pedis artery reconstitutes well below the ankle via peroneal collaterals. The tibioperoneal trunk is occluded. The peroneal artery is patent, although demonstrates multiple stenoses, at least moderate. The posterior tibial artery is occluded over its entire length. Nonvascular: The liver, gallbladder, bile ducts, pancreas, spleen, adrenals, kidneys are all unremarkable. No retroperitoneal or mesenteric mass or adenopathy. The prostate is enlarged. No pelvic mass or adenopathy there is an unusual eggshell calcification in the left seminal vesicle. The appendix is normal. There is considerable stool throughout the colon. No evidence of diverticulosis or diverticulitis. No small bowel distention. No free or loculated intraperitoneal gas or fluid is evident. The included lung bases are essentially clear. The bones are unremarkable except for mild degenerative spondylosis changes IMPRESSION: Evidence of severe left lower extremity vascular disease, with complete occlusions of the entire lengths of the superficial femoral, popliteal, anterior tibial and posterior tibial arteries. There is reconstitution of the peroneal artery which forms the only patent tibial vessel. This is at least moderately disease. The peroneal artery does reconstitute the dorsalis pedis artery Evidence of severe right lower extremity peripheral vascular disease, with complete occlusions of the entire length of the superficial femoral artery. The popliteal artery is essentially occluded over its length, although there are some foci of segmental reconstitution. There are also complete occlusions of the posterior tibial and anterior tibial arteries. The reconstituted peroneal artery forms the only patent tibial vessel. (9) History of CVA (cerebrovascular accident) Josafat Narvaez May 15, 2020 13:40
--- NOTE | 2020-05-15 14:37 | Psych Consult Progress Note ---
Psychiatry Progress Note Psychiatry Progress Note Medications Current Medications Medications (Trade) Dose Ordered Sig/Mell Route PRN Reason Start Time Stop Time Status Last Admin Dose Admin Acetaminophen (Tylenol) 650 mg Q6H PRN ORAL Pain Scale (3-5) 05/08/20 21:45 06/07/20 21:44 05/09/20 11:45 Acetaminophen/ Hydrocodone Bitart ([place] 10/325) 1 tab Q4H PRN ORAL severe pain 05/10/20 11:42 05/17/20 11:41 Aspirin (Ecotrin) 81 mg DAILY ORAL 05/12/20 09:00 06/26/20 08:59 05/15/20 08:19 Atorvastatin Calcium (Lipitor) 20 mg BEDTIME ORAL 05/10/20 21:00 08/08/20 20:59 05/14/20 20:53 Clopidogrel Bisulfate (Plavix) 75 mg QHS ORAL 05/11/20 21:00 06/10/20 20:59 05/14/20 20:53 Dextrose (Dextrose 50%) 25 ml Q30M PRN IV Hypoglycemia 05/08/20 21:45 08/06/20 21:44 Dextrose (Dextrose 50%) 50 ml Q30M PRN IV Hypoglycemia 05/08/20 21:45 08/06/20 21:44 Gabapentin (Neurontin) 600 mg THREE TIMES A DAY ORAL 05/09/20 21:30 06/08/20 21:29 05/15/20 12:53 Heparin Sodium (Porcine) (Heparin 5000 units/ml) 5,000 units Q8HR SUBQ 05/10/20 14:00 06/23/20 08:59 05/15/20 12:56 Insulin Aspart (NovoLOG) BEFORE MEALS AND HS SUBQ 05/09/20 06:30 08/07/20 06:29 05/15/20 12:56 Lorazepam (Ativan) 1 mg Q6H PRN ORAL For Anxiety 05/10/20 23:30 05/17/20 23:29 05/14/20 09:47 Methocarbamol (Robaxin) 500 mg Q8H PRN ORAL muscle spasm 05/12/20 11:00 06/11/20 10:59 05/12/20 20:23 Mirtazapine (Remeron) 7.5 mg BEDTIME PRN ORAL INSOMNIA 05/09/20 23:30 08/07/20 23:29 Morphine Sulfate (Morphine Sulfate) 4 mg Q6H PRN IVP Severe Breakthru Pain (>7) 05/10/20 11:42 05/17/20 11:41 05/15/20 13:39 Vancomycin HCl (Vanco pharmacy to dose) 1 ea DAILY PRN MISC Per rx protocol 05/08/20 21:45 06/07/20 21:44 Vancomycin HCl 750 mg/Sodium Chloride 250 ml @ 166.667 mls/hr Q8H IVPB 05/10/20 21:15 05/17/20 21:14 05/15/20 13:05 Neurological/Psychiatric: Reports: anxiety, depressed, emotional problems; Denies: no symptoms, headache, numbness, paresthesia, pre-existing deficit, seizure, tingling, tremors, weakness, other Allergies: Coded Allergies: No Known Allergies (Unverified , 05/07/14) Objective Data Height (Feet): 5 Height (Inches): 11.00 Weight (Pounds): 155 General Appearance: WD/WN, no apparent distress, alert, agitated, alert oriented x3 Behavior Mannerisms: good eye contact Mental Status Exam - Affect: blunted Speech: clear Mental Status Exam - Suicidal: not present Assessment/Plan Status: stable Assessment/Plan: vascular dementia anxiety do insomnia -remeron 7.5mg po qhs -provided ro/xt Status Narrative vascular dementia anxiety do insomnia Jose Raul Rodriguez MD May 15, 2020 14:37
[2020-05-15] MEDS: LORazepam 0.5mg tab ORAL PRN (14:56)
--- NOTE | 2020-05-15 15:50 | NUR ---
CASE MANAGEMENT:REVIEW SI;LLE CELLULITIS. NON-HEALING FOOT ULCER. HYPERGLYCEMIA. 97.3 83 20 149/86 96% ON RA BG 284 IS;ASA PO QD PLAVIX PO QD VANCOMYCIN IV Q8 HEPARIN SUBQ Q12 MORPHINE SULFATE IV Q6 PRN GABAPENTIN PO TID MED SURG STATUS DCP;FROM HOME PLAN; DC PLANNING OPT ANGIOGRAM
--- NOTE | 2020-05-15 15:57 | NUR ---
INSURANCE CLINICALS/REVIEWS FAXED TO [facility] [phone]
[2020-05-15 16:00] VITALS: BP 142/94
[2020-05-15] MEDS: Methocarbamol 500mg tab ORAL PRN (18:57)
--- NOTE | 2020-05-15 19:15 | NUR ---
NURSE HAND-OFF: Important Events on Shift:[] Patient Status: [stable] Diet: [CCHO Medium] Pending Orders: [CBC w/ Diff x3d] Pending Results/Labs:[] Pending MD notification:[] Latest Vital Signs: Temperature 97.7 , Pulse 90 , B/P 142 /94 , Respiratory Rate 20 , O2 SAT 97 , Room Air, O2 Flow Rate . Vital Sign Comment: [] Latest Manzanares Fall Score: 45 Fall Risk: High Risk Safety Measures: Call light Within Reach, Bed Alarm Zone 1, Side Rails Side Rails x2, Bed position Low and Locked. Fall Precautions: Yellow Socks Yellow Gown Door Sign Patient Fall Education Report given to [ELIESER Hernandez].
[2020-05-15 20:00] VITALS: BP 145/88
--- NOTE | 2020-05-15 20:00 | NUR ---
NURSE NOTES: Received patient awake in bed, able to make needs known, no s/s of acute distress. IV access patent, flushed with normal saline, patient tolerating well. Patient c/o right leg pain, re educated patient on pain medication administration schedule, patient verbalized understanding. Urinal at bedside. Bed low and locked.
[2020-05-15] MEDS: Atorvastatin 20mg tab ORAL SCH (20:13)
--- NOTE | 2020-05-15 23:38 | Psych Consult Progress Note ---
Psychiatry Progress Note Psychiatry Progress Note Subjective the pt was agitated and has a sitter earlier poor memory perseverated that he wanted to go home Medications Current Medications Medications (Trade) Dose Ordered Sig/Mell Route PRN Reason Start Time Stop Time Status Last Admin Dose Admin Acetaminophen (Tylenol) 650 mg Q6H PRN ORAL Pain Scale (3-5) 05/08/20 21:45 06/07/20 21:44 05/09/20 11:45 Acetaminophen/ Hydrocodone Bitart ([place] 10/325) 1 tab Q4H PRN ORAL severe pain 05/10/20 11:42 05/17/20 11:41 Aspirin (Ecotrin) 81 mg DAILY ORAL 05/12/20 09:00 06/26/20 08:59 05/15/20 08:19 Atorvastatin Calcium (Lipitor) 20 mg BEDTIME ORAL 05/10/20 21:00 08/08/20 20:59 05/15/20 20:13 Clopidogrel Bisulfate (Plavix) 75 mg QHS ORAL 05/11/20 21:00 06/10/20 20:59 05/15/20 20:13 Dextrose (Dextrose 50%) 25 ml Q30M PRN IV Hypoglycemia 05/08/20 21:45 08/06/20 21:44 Dextrose (Dextrose 50%) 50 ml Q30M PRN IV Hypoglycemia 05/08/20 21:45 08/06/20 21:44 Gabapentin (Neurontin) 600 mg THREE TIMES A DAY ORAL 05/09/20 21:30 06/08/20 21:29 05/15/20 17:40 Heparin Sodium (Porcine) (Heparin 5000 units/ml) 5,000 units Q8HR SUBQ 05/10/20 14:00 06/23/20 08:59 05/15/20 12:56 Insulin Aspart (NovoLOG) BEFORE MEALS AND HS SUBQ 05/09/20 06:30 08/07/20 06:29 05/15/20 21:00 Lorazepam (Ativan) 1 mg Q6H PRN ORAL For Anxiety 05/10/20 23:30 05/17/20 23:29 05/15/20 14:56 Methocarbamol (Robaxin) 500 mg Q8H PRN ORAL muscle spasm 05/12/20 11:00 06/11/20 10:59 05/15/20 18:57 Mirtazapine (Remeron) 7.5 mg BEDTIME ORAL 05/15/20 21:00 08/13/20 20:59 05/15/20 20:13 Morphine Sulfate (Morphine Sulfate) 4 mg Q6H PRN IVP Severe Breakthru Pain (>7) 05/10/20 11:42 05/17/20 11:41 05/15/20 19:40 Vancomycin HCl (Vanco pharmacy to dose) 1 ea DAILY PRN MISC Per rx protocol 05/08/20 21:45 06/07/20 21:44 Vancomycin HCl 750 mg/Sodium Chloride 250 ml @ 166.667 mls/hr Q8H IVPB 05/10/20 21:15 05/17/20 21:14 05/15/20 20:40 Neurological/Psychiatric: Reports: anxiety, depressed, emotional problems; Denies: no symptoms, headache, numbness, paresthesia, pre-existing deficit, seizure, tingling, tremors, weakness, other Allergies: Coded Allergies: No Known Allergies (Unverified , 05/07/14) Objective Data Height (Feet): 5 Height (Inches): 11.00 Weight (Pounds): 155 General Appearance: WD/WN, no apparent distress, alert, alert oriented x3 Appearance: no abnormalities noted Behavior Mannerisms: good eye contact Mental Status Exam - Affect: constricted Speech: clear Mental Status Exam - Thought P: goal-directed, circumstantial Mental Status Exam - Suicidal: not present Assessment/Plan Status: stable, progressing Assessment/Plan: vascular dementia anxiety do insomnia -remeron 7.5mg po qhs -provided ro/xt Jose Raul Rodriguez MD May 15, 2020 23:38
[2020-05-16] VITALS: BP 145/93
[2020-05-16 04:00] VITALS: BP 142/85
[2020-05-16] MEDS: Heparin 5000 units/ml inj SUBQ SCH ×3 (05:30→22:00)
[2020-05-16] MEDS: NovoLOG Insulin Flexpen SUBQ SCH ×4 (05:57→20:40)
[2020-05-16 06:39] LABS: EOSINOPHILS % (AUTO) 1.4 % (0.0-3.0); HEMATOCRIT 39.7 % (42.0-52.0); LYMPHOCYTES % (AUTO) 23.8 % (20.0-45.0); MEAN CORPUSCULAR VOLUME 84 FL (80-99); MONOCYTES % (AUTO) 7.6 % (1.0-10.0); NEUTROPHILS % (AUTO) 66.3 % (45.0-75.0); PLATELET COUNT 199 K/UL (150-450); RED CELL DISTRIBUTION WIDTH 12.6 % (11.6-14.8); WHITE BLOOD COUNT 6.7 K/UL (4.8-10.8)
--- NOTE | 2020-05-16 06:59 | General Progress Note ---
Subjective HEENT: Denies: no symptoms, eye pain, blurred vision, tearing, double vision, ear pain, ear discharge, nose pain, nose congestion, throat pain, throat swelling, mouth pain, mouth swelling, other Cardiovascular: Denies: no symptoms, chest pain, edema, irregular heart rate, lightheadedness, palpitations, syncope, other Respiratory: Denies: no symptoms, cough, orthopnea, shortness of breath, SOB with excertion, SOB at rest, sputum, stridor, wheezing, other Gastrointestinal/Abdominal: Denies: no symptoms, abdomen distended, abdominal pain, black stools, tarry stools, blood in stool, constipated, diarrhea, difficulty swallowing, nausea, poor appetite, poor fluid intake, rectal bleeding, vomiting, other Genitourinary: Denies: no symptoms, burning, discharge, frequency, flank pain, hematuria, incontinence, pain, urgency, other Endocrine: Denies: no symptoms, excessive sweating, flushing, intolerance to cold, intolerance to heat, increased hunger, increased thirst, increased urine, unexplained weight gain, unexplained weight loss, other Hematologic/Lymphatic: Denies: no symptoms, anemia, easy bleeding, easy bruising, other Allergies: Coded Allergies: No Known Allergies (Unverified , 05/07/14) Subjective 05/11 with left foot ulcer c/o pain and is on abx currently, seen by pod 05/12 is on asa, statin, plavix and seen by [facility], to get angiog outpatient 05/13: pt is resting in bed no events overnight. 05/14 meds noted, remains with minor leg pain, no bleeding, on abx 05/15 still c/o lower ext pain, no bleeding, labs noted, no major changes 05/16 labs noted, no bleeding, is on vanc abx and hep sq Objective Last 24 Hour Vital Signs Date Time Temp Pulse Resp B/P (MAP) Pulse Ox O2 Delivery O2 Flow Rate FiO2 05/16/20 04:00 98.4 87 20 142/85 (104) 97 05/16/20 00:00 98.2 90 20 145/93 (110) 97 05/15/20 20:39 Room Air 05/15/20 20:10 97.7 05/15/20 20:00 98.5 89 20 145/88 (107) 97 05/15/20 16:00 97.7 90 20 142/94 (110) 97 05/15/20 15:26 65 20 149/86 96 05/15/20 14:56 65 20 149/86 96 05/15/20 14:09 97.3 05/15/20 12:00 97.3 65 20 149/86 (107) 96 05/15/20 09:00 Room Air 05/15/20 08:00 97.0 83 20 144/90 (108) 97 05/15/20 07:43 97.9 Intake and Output 05/15/20 05/16/20 19:00 07:00 Intake Total 720 ml 360 ml Output Total 700 ml Balance 20 ml 360 ml Intake Oral 720 ml 360 ml Output Urine Total 700 ml # Voids 2 # Bowel Movements 1 Laboratory Tests 05/15/20 07:00: White Blood Count 5.8, Red Blood Count 4.65L, Hemoglobin 12.8L, Hematocrit 39.6L , Mean Corpuscular Volume 85, Mean Corpuscular Hemoglobin 27.6, Mean Corpuscular Hemoglobin Concent 32.5, Red Cell Distribution Width 12.7, Platelet Count 194, Mean Platelet Volume 6.9, Neutrophils (%) (Auto) 63.4, Lymphocytes (%) (Auto) 26.5, Monocytes (%) (Auto) 7.8, Eosinophils (%) (Auto) 1.3, Basophils (%) (Auto) 1.0 05/16/20 05:45: White Blood Count 6.7, Red Blood Count 4.70, Hemoglobin 13.0L, Hematocrit 39.7L, Mean Corpuscular Volume 84, Mean Corpuscular Hemoglobin 27.7, Mean Corpuscular Hemoglobin Concent 32.9, Red Cell Distribution Width 12.6, Platelet Count 199, Mean Platelet Volume 6.4L, Neutrophils (%) (Auto) 66.3, Lymphocytes (%) (Auto) 23.8, Monocytes (%) (Auto) 7.6, Eosinophils (%) (Auto) 1.4, Basophils (%) (Auto) 1.0 Height (Feet): 5 Height (Inches): 11.00 Weight (Pounds): 155 Objective General Appearance: no apparent distress EENT: PERRL/EOMI Neck: supple Cardiovascular: normal rate Respiratory/Chest: normal breath sounds Abdomen: soft Extremities: non-tender, left iner foot ulceration Assessment/Plan Status: stable, progressing Assessment/Plan: 1 cellulitis lt foot 2 non healing ulcer 3 pvd 4 dm type 2 5 dm neuropathy iv abx per ID wound and podiatry consult cont ss, aacue check pain management consult on abx vanc/zosyn->vanc heparin sq ppx outpatient angiogram Lorenzo Escobar MD May 16, 2020 06:59
--- NOTE | 2020-05-16 07:49 | NUR ---
HAND-OFF: Report given to ELIESER Garcia.
[2020-05-16 08:00] VITALS: BP 143/92
--- NOTE | 2020-05-16 08:00 | NUR ---
NURSE NOTES: Patient awake and alert and oriented,patient sitting up in bed and eating breakfast.Right arm saline lock in place.Left foot elevated on pillows,noted left foot wound dry no drainage noted.Call light within reach.
--- NOTE | 2020-05-16 08:38 | General Progress Note ---
Subjective Date patient seen: May 16, 2020 Time patient seen: 07:00 - am Allergies: Coded Allergies: No Known Allergies (Unverified , 05/07/14) Subjective REVIEW OF SYSTEMS: Denies rash, fever, chills, sweating, dizziness, drowsiness, blurred vision, sore throat, or change in weight. No shortness of breath or chest pain. No nausea, vomiting, diarrhea, or blood in the stool or urine. No dysuria. HISTORY OF PRESENT ILLNESS: This is a 70-year-old male who is being seen on the Med/Surg floor of [facility]. Pain has been unchanged and tolerated on the Morphine and Amelia. No new complaints at this time. Objective Last 24 Hour Vital Signs Date Time Temp Pulse Resp B/P (MAP) Pulse Ox O2 Delivery O2 Flow Rate FiO2 05/16/20 04:00 98.4 87 20 142/85 (104) 97 05/16/20 00:00 98.2 90 20 145/93 (110) 97 05/15/20 20:39 Room Air 05/15/20 20:10 97.7 05/15/20 20:00 98.5 89 20 145/88 (107) 97 05/15/20 16:00 97.7 90 20 142/94 (110) 97 05/15/20 15:26 65 20 149/86 96 05/15/20 14:56 65 20 149/86 96 05/15/20 14:09 97.3 05/15/20 12:00 97.3 65 20 149/86 (107) 96 05/15/20 09:00 Room Air Intake and Output 05/15/20 05/16/20 19:00 07:00 Intake Total 720 ml 360 ml Output Total 700 ml Balance 20 ml 360 ml Intake Oral 720 ml 360 ml Output Urine Total 700 ml # Voids 2 # Bowel Movements 1 Laboratory Tests 05/16/20 05:45: White Blood Count 6.7, Red Blood Count 4.70, Hemoglobin 13.0L, Hematocrit 39.7L, Mean Corpuscular Volume 84, Mean Corpuscular Hemoglobin 27.7, Mean Corpuscular Hemoglobin Concent 32.9, Red Cell Distribution Width 12.6, Platelet Count 199, Mean Platelet Volume 6.4L, Neutrophils (%) (Auto) 66.3, Lymphocytes (%) (Auto) 23.8, Monocytes (%) (Auto) 7.6, Eosinophils (%) (Auto) 1.4, Basophils (%) (Auto) 1.0 Height (Feet): 5 Height (Inches): 11.00 Weight (Pounds): 155 Objective PHYSICAL EXAMINATION: GENERAL: Alert, awake, and oriented. LUNGS: Decreased breath sounds bilaterally. HEART: S1 and S2 regular. ABDOMEN: Soft, nontender. EXTREMITIES: Left partial foot amputation noted. NEURO: No changes. Assessment/Plan Assessment/Plan: (1) Left LE pain (2) H/O Left LE partial foot amputation (3) Non healing ulcer (4) Peripheral neuropathy Patient will be continued on Robaxin, Morphine and Amelia. D/w Dr. Stanford and he concurred. Dimitry Plaza May 16, 2020 08:38
[2020-05-16] MEDS: Aspirin EC 81mg tab ORAL SCH (08:48)
[2020-05-16] MEDS: Morphine Sulfate 4mg/ml Inj (IV USE ONLY) IVP PRN ×2 (08:58→19:31)
--- NOTE | 2020-05-16 10:28 | NUR ---
RD ASSESSMENT & RECOMMENDATIONS SEE CARE ACTIVITY FOR COMPLETE ASSESSMENT DAILY ESTIMATED NEEDS: Needs based on dm, wound, / 64.8kg 25-35 kcals/kg 4131-6705 total kcals 1.25-1.5 g protein/kg 81-130 g total protein 25-30 mL/kg 3105-2466 total fluid mLs NUTRITION DIAGNOSIS: 1) Altered nutrition related lab values r/t diabetes as evidenced by elev elev POC glu (150-286), elev BG (384 160) 2) Increased prot intake needs R/T wound healing as evidenced by pt w/ left ischemic ulcer. CURRENT DIET: CCHO MED PO DIET RECOMMENDATIONS: CCHO MED/ LOW NA ADDITIONAL RECOMMENDATIONS: * Obtain a CALIBRATED bed scale wt for accurate CBW * Monitor BGs, consider long acting insulin for improved BG control (BGs 200's and 300's) * RELIEF SALESPERSON eval for appropriate texture- h/o CVA * A1C for eval of BG control * Wound care: MVI x1, Vit C 250mg QD + BRANDI BID * Add GLUCERNA BID in b/w meals w/ variable intake
--- NOTE | 2020-05-16 10:55 | Surgery Progress Note ---
Surgery Progress Note Subjective Symptoms: improved, tolerating diet, passing flatus, BM, pain decreased Objective Last 24 Hour Vital Signs Date Time Temp Pulse Resp B/P (MAP) Pulse Ox O2 Delivery O2 Flow Rate FiO2 05/16/20 09:00 Room Air 05/16/20 08:00 98.2 87 20 143/92 (109) 96 05/16/20 04:00 98.4 87 20 142/85 (104) 97 05/16/20 00:00 98.2 90 20 145/93 (110) 97 05/15/20 20:39 Room Air 05/15/20 20:10 97.7 05/15/20 20:00 98.5 89 20 145/88 (107) 97 05/15/20 16:00 97.7 90 20 142/94 (110) 97 05/15/20 15:26 65 20 149/86 96 05/15/20 14:56 65 20 149/86 96 05/15/20 14:09 97.3 05/15/20 12:00 97.3 65 20 149/86 (107) 96 I&O Intake and Output 05/15/20 05/16/20 19:00 07:00 Intake Total 720 ml 360 ml Output Total 700 ml Balance 20 ml 360 ml Intake Oral 720 ml 360 ml Output Urine Total 700 ml # Voids 2 # Bowel Movements 1 Dressing: dry Wound: clean Cardiovascular: RSR Respiratory: clear Abdomen: soft, non-tender, present bowel sounds Extremities: no edema, no tenderness, no cyanosis Laboratory Tests Test 05/16/20 05:45 White Blood Count 6.7 K/UL (4.8-10.8) Red Blood Count 4.70 M/UL (4.70-6.10) Hemoglobin 13.0 G/DL (14.2-18.0) L Hematocrit 39.7 % (42.0-52.0) L Mean Corpuscular Volume 84 FL (80-99) Mean Corpuscular Hemoglobin 27.7 PG (27.0-31.0) Mean Corpuscular Hemoglobin Concent 32.9 G/DL (32.0-36.0) Red Cell Distribution Width 12.6 % (11.6-14.8) Platelet Count 199 K/UL (150-450) Mean Platelet Volume 6.4 FL (6.5-10.1) L Neutrophils (%) (Auto) 66.3 % (45.0-75.0) Lymphocytes (%) (Auto) 23.8 % (20.0-45.0) Monocytes (%) (Auto) 7.6 % (1.0-10.0) Eosinophils (%) (Auto) 1.4 % (0.0-3.0) Basophils (%) (Auto) 1.0 % (0.0-2.0) Plan Problems: (1) Osteomyelitis of ankle or foot, acute Assessment & Plan: MRI ordered pending results Patient is status post transmetatarsal amputation. There is a wire in the soft tissues dorsal to the fifth metatarsal stump. No acute fractures. No definite osseous erosions or unusual periosteal reaction Impression: Postoperative changes, as described No definite acute abnormality. No plain radiographic evidence of acute osteomyelitis. Note, however, limited sensitivity of plain radiographs for such. Consider MRI or bone scan for better characterization if there is high clinical suspicion (2) Cellulitis Assessment & Plan: abx as per ID keep leg elevated with pillows (3) Diabetic foot ulcer (4) Epileptic seizure, generalized (5) Diabetes mellitus (6) CAD (coronary artery disease) (7) Cardiomyopathy (8) PVD (peripheral vascular disease) Assessment & Plan: vascular consult placed Leg duplex and CT angio Abx per ID Antiplatelet and statin therapy & DVT precautions Podiatry f/u Smoking abstinence Will schedule patient for selective left leg angiogram to assess for revascu larization Daily Ecotrin 81mg, Plavix 75mg and Statin Abx per ID Ok for d/c planning and will schedule the patient for selective left leg angiogram & revascularization as outpatient Abdominal aorta: There is hard and soft mural plaquing of the abdominal aorta. This does not result in any significant narrowing. The celiac axis demonstrates mild origin stenosis but no significant narrowing. There is classic branching anatomy and patency of the proximal branches. The superior mesenteric artery demonstrates considerable mural plaquing resulting in mild stenosis proximally. The proximal branches are all widely patent. Patent nonstenotic inferior mesenteric artery. Single right and left renal arteries, no significant stenosis demonstrated. Right lower extremity: Extensive hard and soft mural plaquing of but no significant stenosis of the common and external iliac arteries. There is a mo derate to severe stenosis of the internal iliac origin. Patent nonstenotic common femoral artery. There is origin occlusion of the superficial femoral artery. There are areas of segmental reconstitution of the superficial femoral artery distally. The proximal popliteal artery reconstitutes and then reoccludes. It again reconstitutes just above the knee joint level, where it is severely diseased and then occludes below the knee joint level. The anterior tibial artery is essentially occluded over its entire length, although there are a few very small focal areas of segmental reconstitution noted. The dorsalis pedis artery reconstitutes well below the ankle from peroneal collaterals. There is origin occlusion of the tibioperoneal trunk, which does reconstitute distally. The posterior tibial artery appears to be patent, although extensive calcification precludes exclusion of significant stenoses. It forms a plantar vessel. The peroneal artery is patent, small in caliber, and demonstrates multiple focal at least moderate stenoses. It does reach the ankle. Left lower extremity: There is considerable hard and soft plaque involving the common and external iliac arteries, but no significant stenosis is demonstrated. The internal iliac artery and proximal branches are patent. Patent nonstenotic common femoral and profunda femoral arteries. Flush origin occlusion of the superficial femoral artery is demonstrated. The superficial femoral artery is occluded over its entire length, as is the popliteal artery. The anterior tibial artery is essentially occluded over its entire length, although there may be a few foci of segmental reconstitution. The dorsalis pedis artery reconstitutes well below the ankle via peroneal collaterals. The tibioperoneal trunk is occluded. The peroneal artery is patent, although demonstrates multiple stenoses, at least moderate. The posterior tibial artery is occluded over its entire length. Nonvascular: The liver, gallbladder, bile ducts, pancreas, spleen, adrenals, kidneys are all unremarkable. No retroperitoneal or mesenteric mass or adenopathy. The prostate is enlarged. No pelvic mass or adenopathy there is an unusual eggshell calcification in the left seminal vesicle. The appendix is normal. There is considerable stool throughout the colon. No evidence of diverticulosis or diverticulitis. No small bowel distention. No free or loculated intraperitoneal gas or fluid is evident. The included lung bases are essentially clear. The bones are unremarkable except for mild degenerative spondylosis changes IMPRESSION: Evidence of severe left lower extremity vascular disease, with complete occlusions of the entire lengths of the superficial femoral, popliteal, anterior tibial and posterior tibial arteries. There is reconstitution of the peroneal artery which forms the only patent tibial vessel. This is at least moderately disease. The peroneal artery does reconstitute the dorsalis pedis artery Evidence of severe right lower extremity peripheral vascular disease, with complete occlusions of the entire length of the superficial femoral artery. The popliteal artery is essentially occluded over its length, although there are some foci of segmental reconstitution. There are also complete occlusions of the posterior tibial and anterior tibial arteries. The reconstituted peroneal artery forms the only patent tibial vessel. (9) History of CVA (cerebrovascular accident) Josafat Narvaez May 16, 2020 10:55
[2020-05-16] MEDS ORDERED: LORazepam 0.5mg tab ORAL PRN (11:30)
[2020-05-16 12:00] VITALS: BP 144/82
--- NOTE | 2020-05-16 15:43 | NUR ---
CASE MANAGEMENT:REVIEW SI;LLE CELLULITIS. NON-HEALING FOOT ULCER. HYPERGLYCEMIA. 98.4 90 20 145/93 96% ON RA IS;VANCOMYCIN IV Q8 HEPARIN SUBQ Q8 MORPHINE IV Q6 PRN INSULIN NOVOLOG SUBQ QID MED SURG STATUS DCP;FROM HOME
[2020-05-16 16:00] VITALS: BP 154/66
--- NOTE | 2020-05-16 17:43 | NUR ---
INSURANCE CLINICALS AND REVIEW FAXED TO [facility] P: [phone] F: [phone]
--- NOTE | 2020-05-16 18:44 | NUR ---
NURSE NOTES: Patient resting,no complaint of pain ,bed alarm on,call light within reach.
--- NOTE | 2020-05-16 19:25 | NUR ---
NURSE HAND-OFF: Sravani MON Important Events on Shift:[] Patient Status: [] Diet: [ccho medium ] Pending Orders: [] Pending Results/Labs:[] Pending MD notification:[] Latest Vital Signs: Temperature 98.6 , Pulse 86 , B/P 154 /66 , Respiratory Rate 20 , O2 SAT 96 , Room Air, O2 Flow Rate . Vital Sign Comment: [] Latest Manzanares Fall Score: 45 Fall Risk: High Risk Safety Measures: Call light Within Reach, Bed Alarm Zone 1, Side Rails Side Rails x2, Bed position Low and Locked. Fall Precautions: y Yellow Socks y Yellow Gown Door Sign y Patient Fall Education Report given to [].
--- NOTE | 2020-05-16 19:30 | NUR ---
NURSE NOTES: Received patient awake in bed, able to make needs known, no s/s of acute distress. IV access patent, flushed with normal saline, patient tolerating well. Patient c/o right leg pain, PRN morphine to be given. Urinal at bedside. Bed low and locked. Patient wearing non slip socks. Other needs attended to at this time.
[2020-05-16] MEDS: Atorvastatin 20mg tab ORAL SCH (20:14)
[2020-05-16 20:45] VITALS: BP 140/82
[2020-05-17] VITALS: BP 117/58
--- NOTE | 2020-05-17 00:23 | Psych Consult Progress Note ---
Psychiatry Progress Note Psychiatry Progress Note Subjective the pt was less agitated and has a sitter earlier poor memory Medications Current Medications Medications (Trade) Dose Ordered Sig/Mell Route PRN Reason Start Time Stop Time Status Last Admin Dose Admin Acetaminophen (Tylenol) 650 mg Q6H PRN ORAL Pain Scale (3-5) 05/08/20 21:45 06/07/20 21:44 05/09/20 11:45 Acetaminophen/ Hydrocodone Bitart ([place] 10/325) 1 tab Q4H PRN ORAL severe pain 7-10 05/16/20 11:42 05/23/20 11:41 Aspirin (Ecotrin) 81 mg DAILY ORAL 05/12/20 09:00 06/26/20 08:59 05/16/20 08:48 Atorvastatin Calcium (Lipitor) 20 mg BEDTIME ORAL 05/10/20 21:00 08/08/20 20:59 05/16/20 20:14 Clopidogrel Bisulfate (Plavix) 75 mg QHS ORAL 05/11/20 21:00 06/10/20 20:59 05/16/20 20:14 Dextrose (Dextrose 50%) 25 ml Q30M PRN IV Hypoglycemia 05/08/20 21:45 08/06/20 21:44 Dextrose (Dextrose 50%) 50 ml Q30M PRN IV Hypoglycemia 05/08/20 21:45 08/06/20 21:44 Gabapentin (Neurontin) 600 mg THREE TIMES A DAY ORAL 05/09/20 21:30 06/08/20 21:29 05/16/20 18:40 Heparin Sodium (Porcine) (Heparin 5000 units/ml) 5,000 units Q8HR SUBQ 05/10/20 14:00 06/23/20 08:59 05/16/20 14:26 Insulin Aspart (NovoLOG) BEFORE MEALS AND HS SUBQ 05/09/20 06:30 08/07/20 06:29 05/16/20 20:40 Lorazepam (Ativan) 1 mg Q6H PRN ORAL For Anxiety 05/16/20 11:30 05/23/20 11:29 Methocarbamol (Robaxin) 500 mg Q8H PRN ORAL muscle spasm 05/12/20 11:00 06/11/20 10:59 05/15/20 18:57 Mirtazapine (Remeron) 7.5 mg BEDTIME ORAL 05/15/20 21:00 08/13/20 20:59 05/16/20 20:14 Morphine Sulfate (Morphine Sulfate) 4 mg Q6H PRN IVP Severe Breakthru Pain (>7) 05/16/20 11:42 05/23/20 11:41 05/16/20 19:31 Vancomycin HCl (Vanco pharmacy to dose) 1 ea DAILY PRN MISC Per rx protocol 05/08/20 21:45 06/07/20 21:44 Vancomycin HCl 750 mg/Sodium Chloride 250 ml @ 166.667 mls/hr Q8H IVPB 05/10/20 21:15 05/17/20 21:14 05/16/20 21:15 Neurological/Psychiatric: Reports: anxiety, depressed, emotional problems; Denies: no symptoms, headache, numbness, paresthesia, pre-existing deficit, seizure, tingling, tremors, weakness, other Allergies: Coded Allergies: No Known Allergies (Unverified , 05/07/14) Objective Data Height (Feet): 5 Height (Inches): 11.00 Weight (Pounds): 155 General Appearance: WD/WN, no apparent distress, alert, alert oriented x3 Appearance: no abnormalities noted Behavior Mannerisms: good eye contact Mental Status Exam - Affect: constricted Speech: clear Mental Status Exam - Thought P: goal-directed, circumstantial Mental Status Exam - Suicidal: not present Assessment/Plan [place] I: vascular dementia anxiety do insomnia -remeron 7.5mg po qhs -provided ro/xt Status Narrative vascular dementia anxiety do insomnia -remeron 7.5mg po qhs -provided ro/xt Assessment/Plan: vascular dementia anxiety do insomnia -remeron 7.5mg po qhs -provided ro/xt Jose Raul Rodriguez MD May 17, 2020 00:23
[2020-05-17] MEDS: Morphine Sulfate 4mg/ml Inj (IV USE ONLY) IVP PRN ×2 (02:03→08:19)
[2020-05-17 04:00] VITALS: BP 118/56
[2020-05-17] MEDS: NovoLOG Insulin Flexpen SUBQ SCH ×4 (06:03→20:39)
[2020-05-17] MEDS: Heparin 5000 units/ml inj SUBQ SCH ×3 (06:05→22:18)
[2020-05-17 06:26] LABS: BASOPHILS % (AUTO) 0.8 % (0.0-2.0); EOSINOPHILS % (AUTO) 2.1 % (0.0-3.0); HEMATOCRIT 36.5 % (42.0-52.0); LYMPHOCYTES % (AUTO) 29.9 % (20.0-45.0); MEAN CORPUSCULAR VOLUME 85 FL (80-99); MONOCYTES % (AUTO) 8.1 % (1.0-10.0); NEUTROPHILS % (AUTO) 59.1 % (45.0-75.0); PLATELET COUNT 190 K/UL (150-450); RED BLOOD COUNT 4.32 M/UL (4.70-6.10); RED CELL DISTRIBUTION WIDTH 12.5 % (11.6-14.8); WHITE BLOOD COUNT 5.6 K/UL (4.8-10.8)
--- NOTE | 2020-05-17 07:16 | NUR ---
HAND-OFF: Report given to ELIESER Garcia.
[2020-05-17 08:16] VITALS: BP 149/77
--- NOTE | 2020-05-17 08:27 | NUR ---
NURSE NOTES: Patient awake and alert and oriented,patient complaint of left leg pain,pain medication given as ordered.
--- NOTE | 2020-05-17 08:37 | General Progress Note ---
Subjective Date patient seen: May 17, 2020 Time patient seen: 07:00 - am Allergies: Coded Allergies: No Known Allergies (Unverified , 05/07/14) Subjective REVIEW OF SYSTEMS: Denies rash, fever, chills, sweating, dizziness, drowsiness, blurred vision, sore throat, or change in weight. No shortness of breath or chest pain. No nausea, vomiting, diarrhea, or blood in the stool or urine. No dysuria. HISTORY OF PRESENT ILLNESS: This is a 70-year-old male who is being seen on the Med/Surg floor of [facility]. Doing well and pain has been stable and tolerated on the medication no new complaints at this time. Objective Last 24 Hour Vital Signs Date Time Temp Pulse Resp B/P (MAP) Pulse Ox O2 Delivery O2 Flow Rate FiO2 05/17/20 08:16 97.9 95 20 149/77 (101) 94 05/17/20 04:00 97.9 94 20 118/56 (76) 94 05/17/20 02:33 97.7 05/17/20 00:00 97.7 95 20 117/58 (77) 94 05/16/20 23:18 Room Air 05/16/20 20:45 97.6 91 20 140/82 (101) 96 05/16/20 20:01 98.6 05/16/20 16:00 98.6 86 20 154/66 (95) 96 05/16/20 12:00 97.9 79 20 144/82 (102) 96 05/16/20 09:00 Room Air Intake and Output 05/16/20 05/17/20 19:00 07:00 Intake Total 240 ml 150 ml Output Total 1275 ml 460 ml Balance -1035 ml -310 ml Intake Oral 240 ml 150 ml Output Urine Total 1275 ml 460 ml # Voids 2 Laboratory Tests 05/16/20 11:40: POC Whole Blood Glucose [Pending] 05/17/20 04:58: White Blood Count 5.6, Red Blood Count 4.32L, Hemoglobin 12.0L, Hematocrit 36.5L , Mean Corpuscular Volume 85, Mean Corpuscular Hemoglobin 27.9, Mean Corpuscular Hemoglobin Concent 32.9, Red Cell Distribution Width 12.5, Platelet Count 190, Mean Platelet Volume 7.2, Neutrophils (%) (Auto) 59.1, Lymphocytes (%) (Auto) 29.9, Monocytes (%) (Auto) 8.1, Eosinophils (%) (Auto) 2.1, Basophils (%) (Auto) 0.8 Height (Feet): 5 Height (Inches): 11.00 Weight (Pounds): 155 Objective PHYSICAL EXAMINATION: GENERAL: Alert, awake, and oriented. LUNGS: Decreased breath sounds bilaterally. HEART: S1 and S2 regular. ABDOMEN: Soft, nontender. EXTREMITIES: Left partial foot amputation noted. NEURO: No changes. Assessment/Plan Assessment/Plan: (1) Left LE pain (2) H/O Left LE partial foot amputation (3) Non healing ulcer (4) Peripheral neuropathy Patient will be continued on Robaxin, Morphine and [place]. D/w Dr. Stanford and he concurred. Dimitry Plaza May 17, 2020 08:37
[2020-05-17] MEDS: Aspirin EC 81mg tab ORAL SCH (09:04)
--- NOTE | 2020-05-17 11:41 | NUR ---
CASE MANAGEMENT:REVIEW SI;LLE CELLULITIS. NON-HEALING FOOT ULCER. HYPERGLYCEMIA. 97.9 95 20 149/77 94% ON RA BG 303 IS;MORPHINE IV Q6 PRN ASA PO QD VANCOMYCIN IV Q8 HEPARIN SUBQ Q12 INSULIN SUBQ QID MED SURG STATUS DCP;PATIENT IS FROM HOME
--- NOTE | 2020-05-17 11:50 | NUR ---
INSURANCE CLINICALS AND REVIEW FAXED TO [facility] P: [phone] F: [phone]
[2020-05-17 12:00] VITALS: BP 150/87
--- NOTE | 2020-05-17 13:31 | NUR ---
P. T Note: P.T evaluation completed and tx initiated. Please refer to P.T evaluation for current functional status. Pt is alert, O x 4 and cooperative. Pt presented generalized weakness and from not being able to get up out bed due to severe pain on his L posterior thigh and L foot which is tender and painful to touch. Pt currently require SBA X 1 for bed mobilities and MOD A x 1 for Transfer activities using the FWW. Pt able to stand using the FWW and bear wt only on the RLE due to severe pain on his L thigh/knee and foot. Pt not able to ambulate at this stated that it is too painful to even attempt to hop. Pt will be seen for skilled P.T 5x/wk , QD for strengthening, thera ex , ADL/functional mobilities and gait training to facilitate return to PLOF. Recommend home P.T at [place]. Thank you for this referral.
--- NOTE | 2020-05-17 13:47 | General Progress Note ---
Subjective Constitutional: Denies: no symptoms, chills, diaphoresis, fever, malaise, weakness, other HEENT: Denies: no symptoms, eye pain, blurred vision, tearing, double vision, ear pain, ear discharge, nose pain, nose congestion, throat pain, throat swelling, mouth pain, mouth swelling, other Cardiovascular: Denies: no symptoms, chest pain, edema, irregular heart rate, lightheadedness, palpitations, syncope, other Respiratory: Denies: no symptoms, cough, orthopnea, shortness of breath, SOB with excertion, SOB at rest, sputum, stridor, wheezing, other Genitourinary: Denies: no symptoms, burning, discharge, frequency, flank pain, hematuria, incontinence, pain, urgency, other Neurologic/Psychiatric: Denies: no symptoms, anxiety, depressed, emotional problems, headache, numbness, paresthesia, pre-existing deficit, seizure, tingling, tremors, weakness, other Endocrine: Denies: no symptoms, excessive sweating, flushing, intolerance to cold, intolerance to heat, increased hunger, increased thirst, increased urine, unexplained weight gain, unexplained weight loss, other Hematologic/Lymphatic: Denies: no symptoms, anemia, easy bleeding, easy bruising, other Allergies: Coded Allergies: No Known Allergies (Unverified , 05/07/14) Subjective 05/11 with left foot ulcer c/o pain and is on abx currently, seen by pod 05/12 is on asa, statin, plavix and seen by vasc, to get angiog outpatient 05/13: pt is resting in bed no events overnight. 05/14 meds noted, remains with minor leg pain, no bleeding, on abx 05/15 still c/o lower ext pain, no bleeding, labs noted, no major changes 05/16 labs noted, no bleeding, is on vanc abx and hep sq 05/17 on hep sq and vanc for ulceration, seen by psych, no bleeding Objective Last 24 Hour Vital Signs Date Time Temp Pulse Resp B/P (MAP) Pulse Ox O2 Delivery O2 Flow Rate FiO2 05/17/20 12:00 99.0 79 18 150/87 (108) 94 05/17/20 09:00 Room Air 05/17/20 08:16 97.9 95 20 149/77 (101) 94 05/17/20 04:00 97.9 94 20 118/56 (76) 94 05/17/20 02:33 97.7 05/17/20 00:00 97.7 95 20 117/58 (77) 94 05/16/20 23:18 Room Air 05/16/20 20:45 97.6 91 20 140/82 (101) 96 05/16/20 20:01 98.6 05/16/20 16:00 98.6 86 20 154/66 (95) 96 Intake and Output 05/16/20 05/17/20 19:00 07:00 Intake Total 240 ml 150 ml Output Total 1275 ml 460 ml Balance -1035 ml -310 ml Intake Oral 240 ml 150 ml Output Urine Total 1275 ml 460 ml # Voids 2 Laboratory Tests 05/17/20 04:58: White Blood Count 5.6, Red Blood Count 4.32L, Hemoglobin 12.0L, Hematocrit 36.5L , Mean Corpuscular Volume 85, Mean Corpuscular Hemoglobin 27.9, Mean Corpuscular Hemoglobin Concent 32.9, Red Cell Distribution Width 12.5, Platelet Count 190, Mean Platelet Volume 7.2, Neutrophils (%) (Auto) 59.1, Lymphocytes (%) (Auto) 29.9, Monocytes (%) (Auto) 8.1, Eosinophils (%) (Auto) 2.1, Basophils (%) (Auto) 0.8 Height (Feet): 5 Height (Inches): 11.00 Weight (Pounds): 155 Objective General Appearance: no apparent distress EENT: PERRL/EOMI Neck: supple Cardiovascular: normal rate Respiratory/Chest: normal breath sounds Abdomen: soft Extremities: non-tender, left iner foot ulceration Assessment/Plan Assessment/Plan: 1 cellulitis lt foot 2 non healing ulcer 3 pvd 4 dm type 2 5 dm neuropathy iv abx per ID wound and podiatry consult cont ss, aacue check pain management consult on abx vanc/zosyn->vanc heparin sq ppx outpatient angiogram Lorenzo Escobar MD May 17, 2020 13:47
[2020-05-17] MEDS: Methocarbamol 500mg tab ORAL PRN (15:02)
[2020-05-17 16:00] VITALS: BP 139/81
--- NOTE | 2020-05-17 17:09 | Surgery Progress Note ---
Surgery Progress Note Subjective Symptoms: improved, tolerating diet, passing flatus, pain decreased Objective Last 24 Hour Vital Signs Date Time Temp Pulse Resp B/P (MAP) Pulse Ox O2 Delivery O2 Flow Rate FiO2 05/17/20 12:00 99.0 79 18 150/87 (108) 94 05/17/20 09:00 Room Air 05/17/20 08:16 97.9 95 20 149/77 (101) 94 05/17/20 04:00 97.9 94 20 118/56 (76) 94 05/17/20 02:33 97.7 05/17/20 00:00 97.7 95 20 117/58 (77) 94 05/16/20 23:18 Room Air 05/16/20 20:45 97.6 91 20 140/82 (101) 96 05/16/20 20:01 98.6 I&O Intake and Output 05/16/20 05/17/20 19:00 07:00 Intake Total 240 ml 150 ml Output Total 1275 ml 460 ml Balance -1035 ml -310 ml Intake Oral 240 ml 150 ml Output Urine Total 1275 ml 460 ml # Voids 2 Dressing: dry Wound: clean Cardiovascular: RSR Respiratory: clear Abdomen: soft, non-tender, present bowel sounds Extremities: no tenderness, no cyanosis Laboratory Tests Test 05/17/20 04:58 White Blood Count 5.6 K/UL (4.8-10.8) Red Blood Count 4.32 M/UL (4.70-6.10) L Hemoglobin 12.0 G/DL (14.2-18.0) L Hematocrit 36.5 % (42.0-52.0) L Mean Corpuscular Volume 85 FL (80-99) Mean Corpuscular Hemoglobin 27.9 PG (27.0-31.0) Mean Corpuscular Hemoglobin Concent 32.9 G/DL (32.0-36.0) Red Cell Distribution Width 12.5 % (11.6-14.8) Platelet Count 190 K/UL (150-450) Mean Platelet Volume 7.2 FL (6.5-10.1) Neutrophils (%) (Auto) 59.1 % (45.0-75.0) Lymphocytes (%) (Auto) 29.9 % (20.0-45.0) Monocytes (%) (Auto) 8.1 % (1.0-10.0) Eosinophils (%) (Auto) 2.1 % (0.0-3.0) Basophils (%) (Auto) 0.8 % (0.0-2.0) Plan Problems: (1) Osteomyelitis of ankle or foot, acute Assessment & Plan: MRI ordered pending results Patient is status post transmetatarsal amputation. There is a wire in the soft tissues dorsal to the fifth metatarsal stump. No acute fractures. No definite osseous erosions or unusual periosteal reaction Impression: Postoperative changes, as described No definite acute abnormality. No plain radiographic evidence of acute osteomyelitis. Note, however, limited sensitivity of plain radiographs for such. Consider MRI or bone scan for better characterization if there is high clinical suspicion (2) Cellulitis Assessment & Plan: abx as per ID keep leg elevated with pillows (3) Diabetic foot ulcer (4) Epileptic seizure, generalized (5) Diabetes mellitus (6) CAD (coronary artery disease) (7) Cardiomyopathy (8) PVD (peripheral vascular disease) Assessment & Plan: vascular consult placed Leg duplex and CT angio Abx per ID Antiplatelet and statin therapy & DVT precautions Podiatry f/u Smoking abstinence Will schedule patient for selective left leg angiogram to assess for revascularization Daily Ecotrin 81mg, Plavix 75mg and Statin Abx per ID Ok for d/c planning and will schedule the patient for selective left leg julius ogram & revascularization as outpatient Abdominal aorta: There is hard and soft mural plaquing of the abdominal aorta. This does not result in any significant narrowing. The celiac axis demonstrates mild origin stenosis but no significant narrowing. There is classic branching anatomy and patency of the proximal branches. The superior mesenteric artery demonstrates considerable mural plaquing resulting in mild stenosis proximally. The proximal branches are all widely patent. Patent nonstenotic inferior mesenteric artery. Single right and left renal arteries, no significant stenosis demonstrated. Right lower extremity: Extensive hard and soft mural plaquing of but no significant stenosis of the common and external iliac arteries. There is a moderate to severe stenosis of the internal iliac origin. Patent nonstenotic common femoral artery. There is origin occlusion of the superficial femoral artery. There are areas of segmental reconstitution of the superficial femoral artery distally. The proximal popliteal artery reconstitutes and then reoccludes. It again reconstitutes just above the knee joint level, where it is severely diseased and then occludes below the knee joint level. The anterior tibial artery is essentially occluded over its entire length, although there are a few very small focal areas of segmental reconstitution noted. The dorsalis pedis artery reconstitutes well below the ankle from peroneal collaterals. There is origin occlusion of the tibioperoneal trunk, which does reconstitute distally. The posterior tibial artery appears to be patent, although extensive calcification precludes exclusion of significant stenoses. It forms a plantar vessel. The peroneal artery is patent, small in caliber, and demonstrates multiple focal at least moderate stenoses. It does reach the ankle. Left lower extremity: There is considerable hard and soft plaque involving the common and external iliac arteries, but no significant stenosis is demonstrated. The internal iliac artery and proximal branches are patent. Patent nonstenotic common femoral and profunda femoral arteries. Flush origin occlusion of the superficial femoral artery is demonstrated. The superficial femoral artery is occluded over its entire length, as is the popliteal artery. The anterior tibial artery is essentially occluded over its entire length, although there may be a few foci of segmental reconstitution. The dorsalis pedis artery reconstitutes well below the ankle via peroneal collaterals. The tibioperoneal trunk is occluded. The peroneal artery i s patent, although demonstrates multiple stenoses, at least moderate. The posterior tibial artery is occluded over its entire length. Nonvascular: The liver, gallbladder, bile ducts, pancreas, spleen, adrenals, kidneys are all unremarkable. No retroperitoneal or mesenteric mass or adenopathy. The prostate is enlarged. No pelvic mass or adenopathy there is an unusual eggshell calcification in the left seminal vesicle. The appendix is normal. There is considerable stool throughout the colon. No evidence of diverticulosis or diverticulitis. No small bowel distention. No free or loculated intraperitoneal gas or fluid is evident. The included lung bases are essentially clear. The bones are unremarkable except for mild degenerative spondylosis changes IMPRESSION: Evidence of severe left lower extremity vascular disease, with complete occlusions of the entire lengths of the superficial femoral, popliteal, anterior tibial and posterior tibial arteries. There is reconstitution of the peroneal artery which forms the only patent tibial vessel. This is at least moderately disease. The peroneal artery does reconstitute the dorsalis pedis artery Evidence of severe right lower extremity peripheral vascular disease, with complete occlusions of the entire length of the superficial femoral artery. The popliteal artery is essentially occluded over its length, although there are some foci of segmental reconstitution. There are also complete occlusions of the posterior tibial and anterior tibial arteries. The reconstituted peroneal artery forms the only patent tibial vessel. (9) History of CVA (cerebrovascular accident) Josafat Narvaez May 17, 2020 17:09
--- NOTE | 2020-05-17 18:30 | NUR ---
NURSE NOTES: Patient resting,no complaint of pain at tjhis time,call light within reach.
--- NOTE | 2020-05-17 19:30 | NUR ---
NURSE HAND-OFF: Elisa MON Important Events on Shift:[] Patient Status: [] Diet: ccho medium[] Pending Orders: [] Pending Results/Labs:[] Pending MD notification:[] Latest Vital Signs: Temperature 98.3 , Pulse 76 , B/P 139 /81 , Respiratory Rate 19 , O2 SAT 95 , Room Air, O2 Flow Rate . Vital Sign Comment: [] Latest [place] Fall Score: 45 Fall Risk: High Risk Safety Measures: Call light Within Reach, Bed Alarm Zone 1, Side Rails Side Rails x2, Bed position Low and Locked. Fall Precautions: y Yellow Socks Yellow Gown Door Sign y Patient Fall Education Report given to [].
[2020-05-17 20:00] VITALS: BP 140/80
[2020-05-17] MEDS: Atorvastatin 20mg tab ORAL SCH (20:38)
[2020-05-17] MEDS: HYDROcodone/Acetamin 10/325 tab ORAL PRN (20:38)
--- NOTE | 2020-05-17 23:10 | Psych Consult Progress Note ---
Psychiatry Progress Note Psychiatry Progress Note Subjective the pt was less agitated poor memory Medications Current Medications Medications (Trade) Dose Ordered Sig/Mell Route PRN Reason Start Time Stop Time Status Last Admin Dose Admin Acetaminophen (Tylenol) 650 mg Q6H PRN ORAL Pain Scale (3-5) 05/08/20 21:45 06/07/20 21:44 05/09/20 11:45 Acetaminophen/ Hydrocodone Bitart ([place] 10/325) 1 tab Q4H PRN ORAL severe pain 7-10 05/16/20 11:42 05/23/20 11:41 05/17/20 20:38 Aspirin (Ecotrin) 81 mg DAILY ORAL 05/12/20 09:00 06/26/20 08:59 05/17/20 09:04 Atorvastatin Calcium (Lipitor) 20 mg BEDTIME ORAL 05/10/20 21:00 08/08/20 20:59 05/17/20 20:38 Clopidogrel Bisulfate (Plavix) 75 mg QHS ORAL 05/11/20 21:00 06/10/20 20:59 05/17/20 20:38 Dextrose (Dextrose 50%) 25 ml Q30M PRN IV Hypoglycemia 05/08/20 21:45 08/06/20 21:44 Dextrose (Dextrose 50%) 50 ml Q30M PRN IV Hypoglycemia 05/08/20 21:45 08/06/20 21:44 Gabapentin (Neurontin) 600 mg THREE TIMES A DAY ORAL 05/09/20 21:30 06/08/20 21:29 05/17/20 18:20 Heparin Sodium (Porcine) (Heparin 5000 units/ml) 5,000 units Q8HR SUBQ 05/10/20 14:00 06/23/20 08:59 05/17/20 22:18 Insulin Aspart (NovoLOG) BEFORE MEALS AND HS SUBQ 05/09/20 06:30 08/07/20 06:29 05/17/20 20:39 Lorazepam (Ativan) 1 mg Q6H PRN ORAL For Anxiety 05/16/20 11:30 05/23/20 11:29 Methocarbamol (Robaxin) 500 mg Q8H PRN ORAL muscle spasm 05/12/20 11:00 06/11/20 10:59 05/17/20 15:02 Mirtazapine (Remeron) 7.5 mg BEDTIME ORAL 05/15/20 21:00 08/13/20 20:59 05/17/20 20:38 Morphine Sulfate (Morphine Sulfate) 4 mg Q6H PRN IVP Severe Breakthru Pain (>7) 05/16/20 11:42 05/23/20 11:41 05/17/20 08:19 Vancomycin HCl (Vanco pharmacy to dose) 1 ea DAILY PRN MISC Per rx protocol 05/08/20 21:45 06/07/20 21:44 Vancomycin HCl 1 gm/Dextrose 275 ml @ 183.708 mls/hr Q12H IVPB 05/18/20 01:00 05/23/20 00:59 Neurological/Psychiatric: Denies: no symptoms, anxiety, depressed, emotional problems, headache, numbness, paresthesia, pre-existing deficit, seizure, tingling, tremors, weakness, other Allergies: Coded Allergies: No Known Allergies (Unverified , 05/07/14) Objective Data Height (Feet): 5 Height (Inches): 11.00 Weight (Pounds): 155 General Appearance: WD/WN, no apparent distress, alert, alert oriented x3 Appearance: no abnormalities noted Behavior Mannerisms: good eye contact Mental Status Exam - Affect: constricted Speech: clear Mental Status Exam - Thought P: goal-directed, circumstantial Mental Status Exam - Suicidal: not present Assessment/Plan [place] I: vascular dementia anxiety do insomnia -remeron 7.5mg po qhs -provided ro/xt Status Narrative vascular dementia anxiety do insomnia -remeron 7.5mg po qhs -provided ro/xt Assessment/Plan: vascular dementia anxiety do insomnia -remeron 7.5mg po qhs -provided ro/xt Jose Raul Rodriguez MD May 17, 2020 23:10
[2020-05-18] VITALS: BP 156/87
[2020-05-18] MEDS: Vancomycin 1gm/D5W 275ml IVPB SCH ×4 (00:59→13:24)
[2020-05-18 04:00] VITALS: BP 161/91
[2020-05-18] MEDS: NovoLOG Insulin Flexpen SUBQ SCH ×4 (05:57→21:05)
[2020-05-18] MEDS: Heparin 5000 units/ml inj SUBQ SCH ×3 (05:57→21:06)
[2020-05-18 07:22] LABS: BASOPHILS % (AUTO) 1.1 % (0.0-2.0); EOSINOPHILS % (AUTO) 2.4 % (0.0-3.0); HEMATOCRIT 37.6 % (42.0-52.0); HEMOGLOBIN 12.3 G/DL (14.2-18.0); LYMPHOCYTES % (AUTO) 30.3 % (20.0-45.0); MEAN CORPUSCULAR VOLUME 85 FL (80-99); MONOCYTES % (AUTO) 8.3 % (1.0-10.0); PLATELET COUNT 186 K/UL (150-450); RED BLOOD COUNT 4.43 M/UL (4.70-6.10); RED CELL DISTRIBUTION WIDTH 12.5 % (11.6-14.8); WHITE BLOOD COUNT 5.5 K/UL (4.8-10.8)
--- NOTE | 2020-05-18 07:29 | NUR ---
HAND-OFF: Report given to ELIESER Smiley.
--- NOTE | 2020-05-18 07:47 | NUR ---
NURSE NOTES: made rounds, pt is sitting up in bed and eating breakfast; tolerates meals well. breathing is even and unlabored. no acute distress noted. call light is within reach, will follow plan of care.
[2020-05-18 08:00] VITALS: BP 144/90
[2020-05-18] MEDS: Aspirin EC 81mg tab ORAL SCH (08:53)
--- NOTE | 2020-05-18 09:04 | General Progress Note ---
Subjective Date patient seen: May 18, 2020 Time patient seen: 08:00 - am Allergies: Coded Allergies: No Known Allergies (Unverified , 05/07/14) Subjective REVIEW OF SYSTEMS: Denies rash, fever, chills, sweating, dizziness, drowsiness, blurred vision, sore throat, or change in weight. No shortness of breath or chest pain. No nausea, vomiting, diarrhea, or blood in the stool or urine. No dysuria. HISTORY OF PRESENT ILLNESS: This is a 70-year-old male who is being seen on the Med[facility]Surg floor of [facility]. Pain has been stable on the Morphine and [place]. No new complaints at this time. Objective Last 24 Hour Vital Signs Date Time Temp Pulse Resp B/P (MAP) Pulse Ox O2 Delivery O2 Flow Rate FiO2 05/18/20 08:00 97.7 97 18 144/90 (108) 98 05/18/20 04:00 97.0 76 19 161/91 (114) 95 05/18/20 00:00 97.5 88 19 156/87 (110) 95 05/17/20 22:04 Room Air 05/17/20 21:08 98.3 05/17/20 20:00 97.7 82 19 140/80 (100) 95 05/17/20 16:00 98.3 76 19 139/81 (100) 95 05/17/20 12:00 99.0 79 18 150/87 (108) 94 Intake and Output 05/17/20 05/18/20 19:00 07:00 Intake Total 360 ml Output Total 550 ml Balance -550 ml 360 ml Other 360 ml Output Urine Total 550 ml # Voids 4 # Bowel Movements 1 Laboratory Tests 05/17/20 20:00: Vancomycin Level Trough 22.1H 05/18/20 06:58: White Blood Count 5.5, Red Blood Count 4.43L, Hemoglobin 12.3L, Hematocrit 37.6L , Mean Corpuscular Volume 85, Mean Corpuscular Hemoglobin 27.7, Mean Corpuscular Hemoglobin Concent 32.7, Red Cell Distribution Width 12.5, Platelet Count 186, Mean Platelet Volume 6.3L, Neutrophils (%) (Auto) 58.0, Lymphocytes (%) (Auto) 30.3, Monocytes (%) (Auto) 8.3, Eosinophils (%) (Auto) 2.4, Basophils (%) (Auto) 1.1 Height (Feet): 5 Height (Inches): 11.00 Weight (Pounds): 155 Objective PHYSICAL EXAMINATION: GENERAL: Alert, awake, and oriented. LUNGS: Decreased breath sounds bilaterally. HEART: S1 and S2 regular. ABDOMEN: Soft, nontender. EXTREMITIES: Left partial foot amputation noted. NEURO: No changes. Assessment/Plan Assessment/Plan: (1) Left LE pain (2) H/O Left LE partial foot amputation (3) Non healing ulcer (4) Peripheral neuropathy Patient will be continued on Robaxin, Morphine and [place]. D/w Dr. Stanford and he concurred. Dimitry Plaza May 18, 2020 09:04
--- NOTE | 2020-05-18 11:39 | NUR ---
P.T Note: P.T attempted 3x this AM however pt refused to participate due to c/o pain despite premedication. Will reattempt as schedule permits.
--- NOTE | 2020-05-18 11:53 | Surgery Progress Note ---
Surgery Progress Note Subjective Symptoms: tolerating diet, passing flatus, BM Additional Comments no acute events resting comfortable labs okay Objective Last 24 Hour Vital Signs Date Time Temp Pulse Resp B/P (MAP) Pulse Ox O2 Delivery O2 Flow Rate FiO2 05/18/20 09:00 Room Air 05/18/20 08:00 97.7 97 18 144/90 (108) 98 05/18/20 04:00 97.0 76 19 161/91 (114) 95 05/18/20 00:00 97.5 88 19 156/87 (110) 95 05/17/20 22:04 Room Air 05/17/20 21:08 98.3 05/17/20 20:00 97.7 82 19 140/80 (100) 95 05/17/20 16:00 98.3 76 19 139/81 (100) 95 05/17/20 12:00 99.0 79 18 150/87 (108) 94 I&O Intake and Output 05/17/20 05/18/20 19:00 07:00 Intake Total 360 ml Output Total 550 ml Balance -550 ml 360 ml Other 360 ml Output Urine Total 550 ml # Voids 4 # Bowel Movements 1 Dressing: dry Wound: clean Cardiovascular: RSR Respiratory: clear Abdomen: soft, non-tender, present bowel sounds Extremities: no tenderness, no cyanosis Laboratory Tests Test 05/17/20 20:00 05/18/20 06:58 Vancomycin Level Trough 22.1 ug/mL (5.0-12.0) H White Blood Count 5.5 K/UL (4.8-10.8) Red Blood Count 4.43 M/UL (4.70-6.10) L Hemoglobin 12.3 G/DL (14.2-18.0) L Hematocrit 37.6 % (42.0-52.0) L Mean Corpuscular Volume 85 FL (80-99) Mean Corpuscular Hemoglobin 27.7 PG (27.0-31.0) Mean Corpuscular Hemoglobin Concent 32.7 G/DL (32.0-36.0) Red Cell Distribution Width 12.5 % (11.6-14.8) Platelet Count 186 K/UL (150-450) Mean Platelet Volume 6.3 FL (6.5-10.1) L Neutrophils (%) (Auto) 58.0 % (45.0-75.0) Lymphocytes (%) (Auto) 30.3 % (20.0-45.0) Monocytes (%) (Auto) 8.3 % (1.0-10.0) Eosinophils (%) (Auto) 2.4 % (0.0-3.0) Basophils (%) (Auto) 1.1 % (0.0-2.0) Plan Problems: (1) Osteomyelitis of ankle or foot, acute Assessment & Plan: MRI ordered pending results Patient is status post transmetatarsal amputation. There is a wire in the soft tissues dorsal to the fifth metatarsal stump. No acute fractures. No definite osseous erosions or unusual periosteal reaction Impression: Postoperative changes, as described No definite acute abnormality. No plain radiographic evidence of acute osteomyelitis. Note, however, limited sensitivity of plain radiographs for such. Consider MRI or bone scan for better characterization if there is high clinical suspicion (2) Cellulitis Assessment & Plan: abx as per ID keep leg elevated with pillows (3) Diabetic foot ulcer (4) Epileptic seizure, generalized (5) Diabetes mellitus (6) CAD (coronary artery disease) (7) Cardiomyopathy (8) PVD (peripheral vascular disease) Assessment & Plan: vascular consult placed Leg duplex and CT angio Abx per ID Antiplatelet and statin therapy & DVT precautions Podiatry f/u Smoking abstinence Will schedule patient for selective left leg angiogram to assess for revascularization Daily Ecotrin 81mg, Plavix 75mg and Statin Abx per ID Ok for d/c planning and will schedule the patient for selective left leg angiogram & revascularization as outpatient Abdominal aorta: There is hard and soft mural plaquing of the abdominal aorta. This does not result in any significant narrowing. The celiac axis demonstrates mild origin stenosis but no significant narrowing. There is classic branching anatomy and patency of the proximal branches. The superior mesenteric artery demonstrates considerable mural plaquing resulting in mild stenosis proximally. The proximal branches are all widely patent. Patent nonstenotic inferior mesenteric artery. Single right and left renal arteries, no significant stenosis demonstrated. Right lower extremity: Extensive hard and soft mural plaquing of but no significant stenosis of the common and external iliac arteries. There is a moderate to severe stenosis of the internal iliac origin. Patent nonstenotic common femoral artery. There is origin occlusion of the superficial femoral artery. There are areas of segmental reconstitution of the superficial femoral artery distally. The proximal popliteal artery reconstitutes and then reoccludes. It again reconstitutes just above the knee joint level, where it is severely diseased and then occludes below the knee joint level. The anterior tibial artery is essentially occluded over its entire length, although there are a few very small focal areas of segmental reconstitution noted. The dorsalis pedis artery reconstitutes well below the ankle from peroneal collaterals. There is origin occlusion of the tibioperoneal trunk, which does reconstitute distally. The posterior tibial artery appears to be patent, although extensive calcification precludes exclusion of significant stenoses. It forms a plantar vessel. The peroneal artery is patent, small in caliber, and demon strates multiple focal at least moderate stenoses. It does reach the ankle. Left lower extremity: There is considerable hard and soft plaque involving the common and external iliac arteries, but no significant stenosis is demonstrated. The internal iliac artery and proximal branches are patent. Patent nonstenotic common femoral and profunda femoral arteries. Flush origin occlusion of the superficial femoral artery is demonstrated. The superficial femoral artery is occluded over its entire length, as is the popliteal artery. The anterior tibial artery is essentially occluded over its entire length, although there may be a few foci of segmental reconstitution. The dorsalis pedis artery reconstitutes well below the ankle via peroneal collaterals. The tibioperoneal trunk is occluded. The peroneal artery is patent, although demonstrates multiple stenoses, at least moderate. The posteri or tibial artery is occluded over its entire length. Nonvascular: The liver, gallbladder, bile ducts, pancreas, spleen, adrenals, kidneys are all unremarkable. No retroperitoneal or mesenteric mass or adenopathy. The prostate is enlarged. No pelvic mass or adenopathy there is an unusual eggshell calcification in the left seminal vesicle. The appendix is normal. There is considerable stool throughout the colon. No evidence of diverticulosis or diverticulitis. No small bowel distention. No free or locu lated intraperitoneal gas or fluid is evident. The included lung bases are essentially clear. The bones are unremarkable except for mild degenerative spondylosis changes IMPRESSION: Evidence of severe left lower extremity vascular disease, with complete occlusions of the entire lengths of the superficial femoral, popliteal, anterior tibial and posterior tibial arteries. There is reconstitution of the peroneal artery which forms the only patent tibial vessel. This is at least moderately disease. The peroneal artery does reconstitute the dorsalis pedis artery Evidence of severe right lower extremity peripheral vascular disease, with complete occlusions of the entire length of the superficial femoral artery. The popliteal artery is essentially occluded over its length, although there are some foci of segmental reconstitution. There are also complete occlusions of the posterior tibial and anterior tibial arteries. The reconstituted peroneal artery forms the only patent tibial vessel. (9) History of CVA (cerebrovascular accident) Josafat Narvaez May 18, 2020 11:53
[2020-05-18 12:00] VITALS: BP 140/82
--- NOTE | 2020-05-18 12:35 | Hematology/Onc Progress Note ---
Assessment/Plan Assessment/Plan 1 cellulitis lt foot 2 non healing ulcer 3 pvd 4 dm type 2 5 dm neuropathy iv abx per ID wound and podiatry consult cont ss, aacue check pain management consult on abx vanc/zosyn->vanc heparin sq ppx outpatient angiogram Subjective Constitutional: Denies: no symptoms, chills, fever, malaise, weakness, other HEENT: Denies: no symptoms, eye pain, blurred vision, tearing, double vision, e ar pain, ear discharge, nose pain, nose congestion, throat pain, throat swelling, mouth pain, mouth swelling, other Cardiovascular: Denies: no symptoms, chest pain, edema, irregular heart rate, lightheadedness, palpitations, syncope, other Gastrointestinal/Abdominal: Denies: no symptoms, abdomen distended, abdominal pain, black stools, tarry stools, blood in stool, constipated, diarrhea, difficulty swallowing, nausea, poor appetite, poor fluid intake, rectal bleed ing, vomiting, other Genitourinary: Denies: no symptoms, burning, discharge, frequency, flank pain, hematuria, incontinence, pain, urgency, other Neurologic/Psychiatric: Denies: no symptoms, anxiety, depressed, emotional problems, headache, numbness, paresthesia, pre-existing deficit, seizure, tingling, tremors, weakness, other Endocrine: Denies: no symptoms, excessive sweating, flushing, intolerance to cold, intolerance to heat, increased hunger, increased thirst, increased urine, unexplained weight gain, unexplained weight loss, other Hematologic/Lymphatic: Denies: no symptoms, anemia, easy bleeding, easy bruising, adenopathy, other Allergies: Coded Allergies: No Known Allergies (Unverified , 05/07/14) Subjective 05/11 with left foot ulcer c/o pain and is on abx currently, seen by pod 05/12 is on asa, statin, plavix and seen by [facility], to get angiog outpatient 05/13: pt is resting in bed no events overnight. 05/14 meds noted, remains with minor leg pain, no bleeding, on abx 05/15 still c/o lower ext pain, no bleeding, labs noted, no major changes 05/16 labs noted, no bleeding, is on vanc abx and hep sq 05/17 on hep sq and vanc for ulceration, seen by psych, no bleeding 05/18 labs reviewed, no bleeding, on abx, on hep sq Objective Objective Current Medications Medications (Trade) Dose Ordered Sig/Mell Route PRN Reason Start Time Stop Time Status Last Admin Dose Admin Acetaminophen (Tylenol) 650 mg Q6H PRN ORAL Pain Scale (3-5) 05/08/20 21:45 06/07/20 21:44 05/09/20 11:45 Acetaminophen/ Hydrocodone Bitart ([place] [address]25) 1 tab Q4H PRN ORAL severe pain 7-05/16/20 11:42 05/23/20 11:41 05/17/20 20:38 Aspirin (Ecotrin) 81 mg DAILY ORAL 05/12/20 09:00 06/26/20 08:59 05/18/20 08:53 Atorvastatin Calcium (Lipitor) 20 mg BEDTIME ORAL 05/10/20 21:00 08/08/20 20:59 05/17/20 20:38 Clopidogrel Bisulfate (Plavix) 75 mg QHS ORAL 05/11/20 21:00 06/10/20 20:59 05/17/20 20:38 Dextrose (Dextrose 50%) 25 ml Q30M PRN IV Hypoglycemia 05/08/20 21:45 08/06/20 21:44 Dextrose (Dextrose 50%) 50 ml Q30M PRN IV Hypoglycemia 05/08/20 21:45 08/06/20 21:44 Gabapentin (Neurontin) 600 mg THREE TIMES A DAY ORAL 05/09/20 21:30 06/08/20 21:29 05/18/20 08:53 Heparin Sodium (Porcine) (Heparin 5000 units/ml) 5,000 units Q8HR SUBQ 05/10/20 14:00 06/23/20 08:59 05/18/20 05:57 Insulin Aspart (NovoLOG) BEFORE MEALS AND HS SUBQ 05/09/20 06:30 08/07/20 06:29 05/18/20 11:55 Lorazepam (Ativan) 1 mg Q6H PRN ORAL For Anxiety 05/16/20 11:30 05/23/20 11:29 Methocarbamol (Robaxin) 500 mg Q8H PRN ORAL muscle spasm 05/12/20 11:00 06/11/20 10:59 05/17/20 15:02 Mirtazapine (Remeron) 7.5 mg BEDTIME ORAL 05/15/20 21:00 08/13/20 20:59 05/17/20 20:38 Morphine Sulfate (Morphine Sulfate) 4 mg Q6H PRN IVP Severe Breakthru Pain (>7) 05/16/20 11:42 05/23/20 11:41 05/17/20 08:19 Vancomycin HCl (Vanco pharmacy to dose) 1 ea DAILY PRN MISC Per rx protocol 05/08/20 21:45 06/07/20 21:44 Vancomycin HCl 1 gm/Dextrose 275 ml @ 183.708 mls/hr Q12H IVPB 05/18/20 01:00 05/23/20 00:59 05/18/20 00:59 Last 24 Hour Vital Signs Date Time Temp Pulse Resp B/P (MAP) Pulse Ox O2 Delivery O2 Flow Rate FiO2 05/18/20 09:00 Room Air 05/18/20 08:00 97.7 97 18 144/90 (108) 98 05/18/20 04:00 97.0 76 19 161/91 (114) 95 05/18/20 00:00 97.5 88 19 156/87 (110) 95 05/17/20 22:04 Room Air 05/17/20 21:08 98.3 05/17/20 20:00 97.7 82 19 140/80 (100) 95 05/17/20 16:00 98.3 76 19 139/81 (100) 95 05/17/20 12:00 99.0 79 18 150/87 (108) 94 05/17/20 09:00 Room Air 05/17/20 08:16 97.9 95 20 149/77 (101) 94 05/17/20 04:00 97.9 94 20 118/56 (76) 94 05/17/20 02:33 97.7 05/17/20 00:00 97.7 95 20 117/58 (77) 94 05/16/20 23:18 Room Air 05/16/20 20:45 97.6 91 20 140/82 (101) 96 05/16/20 20:01 98.6 05/16/20 16:00 98.6 86 20 154/66 (95) 96 Intake and Output 05/17/20 05/18/20 19:00 07:00 Intake Total 360 ml Output Total 550 ml Balance -550 ml 360 ml Other 360 ml Output Urine Total 550 ml # Voids 4 # Bowel Movements 1 Labs Test 05/15/20 16:49 05/16/20 05:45 05/16/20 11:40 05/17/20 04:58 White Blood Count 6.7 K/UL (4.8-10.8) 5.6 K/UL (4.8-10.8) Red Blood Count 4.70 M/UL (4.70-6.10) 4.32 M/UL (4.70-6.10) Hemoglobin 13.0 G/DL (14.2-18.0) 12.0 G/DL (14.2-18.0) Hematocrit 39.7 % (42.0-52.0) 36.5 % (42.0-52.0) Mean Corpuscular Volume 84 FL (80-99) 85 FL (80-99) Mean Corpuscular Hemoglobin 27.7 PG (27.0-31.0) 27.9 PG (27.0-31.0) Mean Corpuscular Hemoglobin Concent 32.9 G/DL (32.0-36.0) 32.9 G/DL (32.0-36.0) Red Cell Distribution Width 12.6 % (11.6-14.8) 12.5 % (11.6-14.8) Platelet Count 199 K/UL (150-450) 190 K/UL (150-450) Mean Platelet Volume 6.4 FL (6.5-10.1) 7.2 FL (6.5-10.1) Neutrophils (%) (Auto) 66.3 % (45.0-75.0) 59.1 % (45.0-75.0) Lymphocytes (%) (Auto) 23.8 % (20.0-45.0) 29.9 % (20.0-45.0) Monocytes (%) (Auto) 7.6 % (1.0-10.0) 8.1 % (1.0-10.0) Eosinophils (%) (Auto) 1.4 % (0.0-3.0) 2.1 % (0.0-3.0) Basophils (%) (Auto) 1.0 % (0.0-2.0) 0.8 % (0.0-2.0) Test 05/17/20 20:00 05/18/20 06:58 Vancomycin Level Trough 22.1 ug/mL (5.0-12.0) White Blood Count 5.5 K/UL (4.8-10.8) Red Blood Count 4.43 M/UL (4.70-6.10) Hemoglobin 12.3 G/DL (14.2-18.0) Hematocrit 37.6 % (42.0-52.0) Mean Corpuscular Volume 85 FL (80-99) Mean Corpuscular Hemoglobin 27.7 PG (27.0-31.0) Mean Corpuscular Hemoglobin Concent 32.7 G/DL (32.0-36.0) Red Cell Distribution Width 12.5 % (11.6-14.8) Platelet Count 186 K/UL (150-450) Mean Platelet Volume 6.3 FL (6.5-10.1) Neutrophils (%) (Auto) 58.0 % (45.0-75.0) Lymphocytes (%) (Auto) 30.3 % (20.0-45.0) Monocytes (%) (Auto) 8.3 % (1.0-10.0) Eosinophils (%) (Auto) 2.4 % (0.0-3.0) Basophils (%) (Auto) 1.1 % (0.0-2.0) Height (Feet): 5 Height (Inches): 11.00 Weight (Pounds): 155 Objective General Appearance: no apparent distress EENT: PERRL/EOMI Neck: supple Cardiovascular: normal rate Respiratory/Chest: normal breath sounds Abdomen: soft Extremities: non-tender, left iner foot ulceration Lorenzo Escobar MD May 18, 2020 12:35
[2020-05-18] MEDS: HYDROcodone/Acetamin 10/325 tab ORAL PRN ×2 (12:37→21:48)
[2020-05-18 16:00] VITALS: BP 138/86
--- NOTE | 2020-05-18 16:45 | NUR ---
CASE MANAGEMENT:REVIEW SI;LLE CELLULITIS. NON-HEALING FOOT ULCER. HYPERGLYCEMIA. 98.2 107 19 161/37 95% ON RA IS;VANCOMYCIN IV Q12 ASA PO QD HEPARIN SUBQ Q8 GABAPENTIN PO TID MED SURG STATUS DCP;FROM HOME PLAN; SNF PLACEMENT
--- NOTE | 2020-05-18 17:36 | NUR ---
DISCHARGE PLANNING PATIENT HAS BEEN REFERRED TO [facility] P: [phone] F: [phone]
--- NOTE | 2020-05-18 18:34 | General Progress Note ---
Subjective Allergies: Coded Allergies: No Known Allergies (Unverified , 05/07/14) Subjective c/o pain on foot doing better Objective Last 24 Hour Vital Signs Date Time Temp Pulse Resp B/P (MAP) Pulse Ox O2 Delivery O2 Flow Rate FiO2 05/18/20 16:00 98.2 107 18 138/86 (103) 98 05/18/20 12:00 98.0 103 18 140/82 (101) 99 05/18/20 09:00 Room Air 05/18/20 08:00 97.7 97 18 144/90 (108) 98 05/18/20 04:00 97.0 76 19 161/91 (114) 95 05/18/20 00:00 97.5 88 19 156/87 (110) 95 05/17/20 22:04 Room Air 05/17/20 21:08 98.3 05/17/20 20:00 97.7 82 19 140/80 (100) 95 Intake and Output 05/17/20 05/18/20 19:00 07:00 Intake Total 360 ml Output Total 550 ml Balance -550 ml 360 ml Other 360 ml Output Urine Total 550 ml # Voids 4 # Bowel Movements 1 Laboratory Tests 05/17/20 20:00: Vancomycin Level Trough 22.1H 05/18/20 06:58: White Blood Count 5.5, Red Blood Count 4.43L, Hemoglobin 12.3L, Hematocrit 37.6L , Mean Corpuscular Volume 85, Mean Corpuscular Hemoglobin 27.7, Mean Corpuscular Hemoglobin Concent 32.7, Red Cell Distribution Width 12.5, Platelet Count 186, Mean Platelet Volume 6.3L, Neutrophils (%) (Auto) 58.0, Lymphocytes (%) (Auto) 30.3, Monocytes (%) (Auto) 8.3, Eosinophils (%) (Auto) 2.4, Basophils (%) (Auto) 1.1 Height (Feet): 5 Height (Inches): 11.00 Weight (Pounds): 155 General Appearance: no apparent distress, alert EENT: PERRL/EOMI Neck: normal alignment Cardiovascular: normal rate Respiratory/Chest: lungs clear Abdomen: non tender, soft Extremities: swelling Assessment/Plan Assessment/Plan: 1 cellulitis lt foot 2 non healing ulcer 3 pvd 4 dm type 2 5 dm neuropathy iv abx wound and podietarty consult cont ss, aacue check nh placement Noble Penn MD May 18, 2020 18:34
--- NOTE | 2020-05-18 19:15 | NUR ---
HAND-OFF: Report given to Armani.
--- NOTE | 2020-05-18 19:21 | NUR ---
NURSE NOTES: Pt. received from ELIESER Smiley. Pt. AAOx4, on room air breathing is even and unlabored, no SOB, no complaints of pain at this time. IV noted right FA 22g intact and patent, saline locked. Bed low and locked, side rails x3 up and upper rails are padded, bed alarm active, and call light in reach.
[2020-05-18 20:00] VITALS: BP 132/89
[2020-05-18] MEDS: Atorvastatin 20mg tab ORAL SCH (21:06)
--- NOTE | 2020-05-18 22:29 | Psych Consult Progress Note ---
Psychiatry Progress Note Psychiatry Progress Note Subjective doing well NAD Medications Current Medications Medications (Trade) Dose Ordered Sig/Mell Route PRN Reason Start Time Stop Time Status Last Admin Dose Admin Acetaminophen (Tylenol) 650 mg Q6H PRN ORAL Pain Scale (3-5) 05/08/20 21:45 06/07/20 21:44 05/09/20 11:45 Acetaminophen/ Hydrocodone Bitart ([place] 10/325) 1 tab Q4H PRN ORAL severe pain 7-10 05/16/20 11:42 05/23/20 11:41 05/18/20 21:48 Aspirin (Ecotrin) 81 mg DAILY ORAL 05/12/20 09:00 06/26/20 08:59 05/18/20 08:53 Atorvastatin Calcium (Lipitor) 20 mg BEDTIME ORAL 05/10/20 21:00 08/08/20 20:59 05/18/20 21:06 Clopidogrel Bisulfate (Plavix) 75 mg QHS ORAL 05/11/20 21:00 06/10/20 20:59 05/18/20 21:06 Dextrose (Dextrose 50%) 25 ml Q30M PRN IV Hypoglycemia 05/08/20 21:45 08/06/20 21:44 Dextrose (Dextrose 50%) 50 ml Q30M PRN IV Hypoglycemia 05/08/20 21:45 08/06/20 21:44 Gabapentin (Neurontin) 600 mg THREE TIMES A DAY ORAL 05/09/20 21:30 06/08/20 21:29 05/18/20 17:38 Heparin Sodium (Porcine) (Heparin 5000 units/ml) 5,000 units Q8HR SUBQ 05/10/20 14:00 06/23/20 08:59 05/18/20 21:06 Insulin Aspart (NovoLOG) BEFORE MEALS AND HS SUBQ 05/09/20 06:30 08/07/20 06:29 05/18/20 21:05 Lorazepam (Ativan) 1 mg Q6H PRN ORAL For Anxiety 05/16/20 11:30 05/23/20 11:29 Methocarbamol (Robaxin) 500 mg Q8H PRN ORAL muscle spasm 05/12/20 11:00 06/11/20 10:59 05/17/20 15:02 Mirtazapine (Remeron) 7.5 mg BEDTIME ORAL 05/15/20 21:00 08/13/20 20:59 05/18/20 21:06 Morphine Sulfate (Morphine Sulfate) 4 mg Q6H PRN IVP Severe Breakthru Pain (>7) 05/16/20 11:42 05/23/20 11:41 05/17/20 08:19 Vancomycin HCl (Vanco pharmacy to dose) 1 ea DAILY PRN MISC Per rx protocol 05/08/20 21:45 06/07/20 21:44 Vancomycin HCl 1 gm/Dextrose 275 ml @ 183.708 mls/hr Q12H IVPB 05/18/20 01:00 05/23/20 00:59 05/18/20 13:24 Neurological/Psychiatric: Denies: no symptoms, anxiety, depressed, emotional problems, headache, numbness, paresthesia, pre-existing deficit, seizure, tingling, tremors, weakness, other Allergies: Coded Allergies: No Known Allergies (Unverified , 05/07/14) Objective Data Height (Feet): 5 Height (Inches): 11.00 Weight (Pounds): 155 General Appearance: no apparent distress, alert, alert oriented x3 Appearance: no abnormalities noted Behavior Mannerisms: good eye contact Mental Status Exam - Affect: constricted Speech: clear Mental Status Exam - Thought P: goal-directed, circumstantial Mental Status Exam - Suicidal: not present Assessment/Plan [place] I: vascular dementia anxiety do insomnia -remeron 7.5mg po qhs -provided ro/xt Status Narrative vascular dementia anxiety do insomnia -remeron 7.5mg po qhs -provided ro/xt Assessment/Plan: vascular dementia anxiety do insomnia -remeron 7.5mg po qhs -provided ro/xt Jose Raul Rodriguez MD May 18, 2020 22:28
[2020-05-18] MEDS: Methocarbamol 500mg tab ORAL PRN (23:47)
[2020-05-19] VITALS: BP 127/74
--- NOTE | 2020-05-19 | NUR ---
NURSE NOTES: 22g IV placed left forearm, saline locked for IV antibiotics. Left foot wound care provided, dressing changed.
[2020-05-19] MEDS: Vancomycin 1gm/D5W 275ml IVPB SCH ×4 (00:31→13:19)
[2020-05-19 04:00] VITALS: BP 134/96
[2020-05-19] MEDS: NovoLOG Insulin Flexpen SUBQ SCH ×3 (06:08→17:22)
[2020-05-19] MEDS: Heparin 5000 units/ml inj SUBQ SCH ×2 (06:09→13:18)
--- NOTE | 2020-05-19 06:52 | NUR ---
NURSE HAND-OFF: Important Events on Shift:[left foot wound care performed, dressing changed; IV inserted left forearm 22g] Patient Status: stable Diet: CCHO medium Pending Orders: na Pending Results/Labs:na Pending MD notification:na Latest Vital Signs: Temperature 97.2 , Pulse 89 , B/P 134 /96 , Respiratory Rate 20 , O2 SAT 96 , Room Air, O2 Flow Rate . Vital Sign Comment: stable Latest [place] Fall Score: 35 Fall Risk: Medium Risk Safety Measures: Call light Within Reach, Bed Alarm Zone 1, Side Rails Side Rails x2, Bed position Low and Locked. Fall Precautions: Yellow Socks Yellow Gown Door Sign Patient Fall Education Report given to .
--- NOTE | 2020-05-19 07:13 | NUR ---
HAND-OFF: Report given to ELIESER Kowalski.
--- NOTE | 2020-05-19 07:42 | NUR ---
NURSE NOTES: Report received from Armani MON. Patient seen on rounds, AxOx3, on room air, not in distress or pain. Afebrile. PIV on left forearm patent and intact. Nurse reports wound dressing over left diabetic foot ulcer was changed. Bed low and locked, siderails up x2, call light placed within reach and instructed to call nurse for assistance. Will continue to monitor.
[2020-05-19 08:00] VITALS: BP 150/75
[2020-05-19] MEDS: Morphine Sulfate 4mg/ml Inj (IV USE ONLY) IVP PRN (08:07)
[2020-05-19] MEDS: Aspirin EC 81mg tab ORAL SCH (08:07)
[2020-05-19] MEDS: Methocarbamol 500mg tab ORAL PRN (08:16)
--- NOTE | 2020-05-19 08:56 | General Progress Note ---
Subjective Date patient seen: May 19, 2020 Time patient seen: 08:00 - am Allergies: Coded Allergies: No Known Allergies (Unverified , 05/07/14) Subjective REVIEW OF SYSTEMS: Denies rash, fever, chills, sweating, dizziness, drowsiness, blurred vision, sore throat, or change in weight. No shortness of breath or chest pain. No nausea, vomiting, diarrhea, or blood in the stool or urine. No dysuria. HISTORY OF PRESENT ILLNESS: This is a 70-year-old male who is being seen on the Med[facility]Surg floor of [facility]. He is c/o severe pain with minimal relief on the Morphine and [place] at this time. Objective Last 24 Hour Vital Signs Date Time Temp Pulse Resp B/P (MAP) Pulse Ox O2 Delivery O2 Flow Rate FiO2 05/19/20 08:00 98.8 105 20 150/75 (100) 97 05/19/20 04:00 97.2 89 20 134/96 (109) 96 05/19/20 00:00 98.2 87 18 127/74 (91) 95 05/18/20 21:00 Room Air 05/18/20 20:00 98.1 109 22 132/89 (103) 98 05/18/20 16:00 98.2 107 18 138/86 (103) 98 05/18/20 12:00 98.0 103 18 140/82 (101) 99 05/18/20 09:00 Room Air Intake and Output 05/18/20 05/19/20 19:00 07:00 Intake Total 1100 ml 675.000 ml Output Total 500 ml Balance 1100 ml 175.000 ml Intake Oral 1100 ml 400 ml IV Total 275.000 ml Output Urine Total 500 ml # Voids 8 2 # Bowel Movements 1 Height (Feet): 5 Height (Inches): 11.00 Weight (Pounds): 155 Objective PHYSICAL EXAMINATION: GENERAL: Alert, awake, and oriented. LUNGS: Decreased breath sounds bilaterally. HEART: S1 and S2 regular. ABDOMEN: Soft, nontender. EXTREMITIES: Left partial foot amputation noted. NEURO: No changes. Assessment/Plan Assessment/Plan: (1) Left LE pain (2) H/O Left LE partial foot amputation (3) Non healing ulcer (4) Peripheral neuropathy Patient will be continued on Robaxin and [place]. We will discontinue Morphine and start Dilaudid0.5mg IV Q4H PRN severe breakthrough pain D/w Dr. Stanford and he concurred. Dimitry Plaza May 19, 2020 08:56
[2020-05-19] MEDS ORDERED: fentaNYL Destruction MISC SCH (09:00)
[2020-05-19] MEDS ORDERED: Naloxone 0.4mg/ml Inj IV PRN (09:00)
[2020-05-19] MEDS ORDERED: Hydromorphone 0.5mg/0.5ml inj IVP PRN (09:00)
--- NOTE | 2020-05-19 09:22 | NUR ---
DISCHARGE PLANNING PATIENT HAS BEEN REFERRED TO [facility] P: [phone] F: [phone]
--- NOTE | 2020-05-19 10:22 | General Progress Note ---
Subjective Allergies: Coded Allergies: No Known Allergies (Unverified , 05/07/14) Subjective c/o pain on foot doing better Objective Last 24 Hour Vital Signs Date Time Temp Pulse Resp B/P (MAP) Pulse Ox O2 Delivery O2 Flow Rate FiO2 05/19/20 08:00 98.8 105 20 150/75 (100) 97 05/19/20 04:00 97.2 89 20 134/96 (109) 96 05/19/20 00:00 98.2 87 18 127/74 (91) 95 05/18/20 21:00 Room Air 05/18/20 20:00 98.1 109 22 132/89 (103) 98 05/18/20 16:00 98.2 107 18 138/86 (103) 98 05/18/20 12:00 98.0 103 18 140/82 (101) 99 Intake and Output 05/18/20 05/19/20 18:59 06:59 Intake Total 1100 ml 675.000 ml Output Total 500 ml Balance 1100 ml 175.000 ml Intake Oral 1100 ml 400 ml IV Total 275.000 ml Output Urine Total 500 ml # Voids 8 2 # Bowel Movements 1 Height (Feet): 5 Height (Inches): 11.00 Weight (Pounds): 155 General Appearance: alert EENT: PERRL/EOMI Neck: supple Cardiovascular: regular rhythm Respiratory/Chest: normal breath sounds Abdomen: non tender, soft Extremities: non-tender Assessment/Plan Assessment/Plan: 1 cellulitis lt foot 2 non healing ulcer 3 pvd 4 dm type 2 5 dm neuropathy iv abx wound and podietarty consult cont ss, aacue check nh placement Noble Penn MD May 19, 2020 10:22
[2020-05-19] MEDS ORDERED: BACTRIM-DS1 EA ORAL (10:32)
[2020-05-19] MEDS ORDERED: ASPIRIN-LOW81 MG ORAL (10:33)
[2020-05-19] MEDS ORDERED: NEURONTIN600 MG ORAL (10:34)
[2020-05-19] MEDS ORDERED: IBUPROFEN600 M1 ORAL (10:35)
--- NOTE | 2020-05-19 10:49 | NUR ---
DISCHARGE PLANNING PATIENT HAS BEEN REFERRED TO [facility] P: [phone] S/W QUINN, WILL CALL BACK AFTER REVIEW
--- NOTE | 2020-05-19 10:50 | NUR ---
DISCHARGE PLANNING PATIENT HAS BEEN REFERRED TO [facility] ([facility]) P: [phone] S/W OTTO, ADMISSION NOT IN YET, CALL BACK IN A HOUR.
--- NOTE | 2020-05-19 11:46 | NUR ---
DISCHARGE PLANNING PER DR PRUETT, REFERRED TO [facility] P: [phone] F: [phone]
--- NOTE | 2020-05-19 11:52 | Hematology/Onc Progress Note ---
Assessment/Plan Assessment/Plan 1 anemia of chronic disease with cellulitis lt foot 2 non healing ulcer 3 pvd 4 dm type 2 5 dm neuropathy iv abx per ID wound and podiatry consult cont ss, aacue check pain management consult on abx vanc/zosyn->vanc heparin sq ppx outpatient angiogram Subjective Constitutional: Denies: no symptoms, chills, fever, malaise, weakness, other Cardiovascular: Denies: no symptoms, chest pain, edema, irregular heart rate, lightheadedness, palpitations, syncope, other Respiratory: Denies: no symptoms, cough, shortness of breath, SOB with excertion, SOB at rest, sputum, wheezing, other Gastrointestinal/Abdominal: Denies: no symptoms, abdomen distended, abdominal pain, black stools, tarry stools, blood in stool, constipated, diarrhea, difficulty swallowing, nausea, poor appetite, poor fluid intake, rectal bleeding, vomiting, other Genitourinary: Denies: no symptoms, burning, discharge, frequency, flank pain, hematuria, incontinence, pain, urgency, other Neurologic/Psychiatric: Denies: no symptoms, anxiety, depressed, emotional problems, headache, numbness, paresthesia, pre-existing deficit, seizure, tingling, tremors, weakness, other Hematologic/Lymphatic: Denies: no symptoms, anemia, easy bleeding, easy bruising, adenopathy, other Allergies: Coded Allergies: No Known Allergies (Unverified , 05/07/14) Subjective 05/11 with left foot ulcer c/o pain and is on abx currently, seen by pod 05/12 is on asa, statin, plavix and seen by vasc, to get angiog outpatient 05/13: pt is resting in bed no events overnight. 05/14 meds noted, remains with minor leg pain, no bleeding, on abx 05/15 still c/o lower ext pain, no bleeding, labs noted, no major changes 05/16 labs noted, no bleeding, is on vanc abx and hep sq 05/17 on hep sq and vanc for ulceration, seen by psych, no bleeding 05/18 labs reviewed, no bleeding, on abx, on hep sq 05/19 labs reviewed, no bleeding, dw rn, no major events hgb 12 Objective Objective Current Medications Medications (Trade) Dose Ordered Sig/Mell Route PRN Reason Start Time Stop Time Status Last Admin Dose Admin Acetaminophen (Tylenol) 650 mg Q6H PRN ORAL Pain Scale (3-5) 05/08/20 21:45 06/07/20 21:44 05/09/20 11:45 Acetaminophen/ Hydrocodone Bitart ([place] 10) 1 tab Q4H PRN ORAL severe pain 7-10 05/16/20 11:42 05/23/20 11:41 05/18/20 21:48 Aspirin (Ecotrin) 81 mg DAILY ORAL 05/12/20 09:00 06/26/20 08:59 05/19/20 08:07 Atorvastatin Calcium (Lipitor) 20 mg BEDTIME ORAL 05/10/20 21:00 08/08/20 20:59 05/18/20 21:06 Clopidogrel Bisulfate (Plavix) 75 mg QHS ORAL 05/11/20 21:00 06/10/20 20:59 05/18/20 21:06 Dextrose (Dextrose 50%) 25 ml Q30M PRN IV Hypoglycemia 05/08/20 21:45 08/06/20 21:44 Dextrose (Dextrose 50%) 50 ml Q30M PRN IV Hypoglycemia 05/08/20 21:45 08/06/20 21:44 Gabapentin (Neurontin) 600 mg THREE TIMES A DAY ORAL 05/09/20 21:30 06/08/20 21:29 05/19/20 08:07 Heparin Sodium (Porcine) (Heparin 5000 units/ml) 5,000 units Q8HR SUBQ 05/10/20 14:00 06/23/20 08:59 05/19/20 06:09 Hydromorphone HCl (Dilaudid) 0.5 mg Q4H PRN IVP Severe Breakthru Pain (>7) 05/19/20 09:00 05/26/20 08:59 05/19/20 11:08 Insulin Aspart (NovoLOG) BEFORE MEALS AND HS SUBQ 05/09/20 06:30 08/07/20 06:29 05/19/20 06:08 Lorazepam (Ativan) 1 mg Q6H PRN ORAL For Anxiety 05/16/20 11:30 05/23/20 11:29 Methocarbamol (Robaxin) 500 mg Q8H PRN ORAL muscle spasm 05/12/20 11:00 06/11/20 10:59 05/19/20 08:16 Mirtazapine (Remeron) 7.5 mg BEDTIME ORAL 05/15/20 21:00 08/13/20 20:59 05/18/20 21:06 Vancomycin HCl (Vanco pharmacy to dose) 1 ea DAILY PRN MISC Per rx protocol 05/08/20 21:45 06/07/20 21:44 Vancomycin HCl 1 gm/Dextrose 275 ml @ 183.708 mls/hr Q12H IVPB 05/18/20 01:00 05/23/20 00:59 05/19/20 00:31 Last 24 Hour Vital Signs Date Time Temp Pulse Resp B/P (MAP) Pulse Ox O2 Delivery O2 Flow Rate FiO2 05/19/20 09:00 Room Air 05/19/20 08:00 98.8 105 20 150/75 (100) 97 05/19/20 04:00 97.2 89 20 134/96 (109) 96 05/19/20 00:00 98.2 87 18 127/74 (91) 95 05/18/20 21:00 Room Air 05/18/20 20:00 98.1 109 22 132/89 (103) 98 05/18/20 16:00 98.2 107 18 138/86 (103) 98 05/18/20 12:00 98.0 103 18 140/82 (101) 99 05/18/20 09:00 Room Air 05/18/20 08:00 97.7 97 18 144/90 (108) 98 05/18/20 04:00 97.0 76 19 161/91 (114) 95 05/18/20 00:00 97.5 88 19 156/87 (110) 95 05/17/20 22:04 Room Air 05/17/20 21:08 98.3 05/17/20 20:00 97.7 82 19 140/80 (100) 95 05/17/20 16:00 98.3 76 19 139/81 (100) 95 05/17/20 12:00 99.0 79 18 150/87 (108) 94 Intake and Output 05/18/20 05/19/20 19:00 07:00 Intake Total 1100 ml 675.000 ml Output Total 500 ml Balance 1100 ml 175.000 ml Intake Oral 1100 ml 400 ml IV Total 275.000 ml Output Urine Total 500 ml # Voids 8 2 # Bowel Movements 1 Labs Test 05/17/20 04:58 05/17/20 20:00 05/18/20 06:58 White Blood Count 5.6 K/UL (4.8-10.8) 5.5 K/UL (4.8-10.8) Red Blood Count 4.32 M/UL (4.70-6.10) 4.43 M/UL (4.70-6.10) Hemoglobin 12.0 G/DL (14.2-18.0) 12.3 G/DL (14.2-18.0) Hematocrit 36.5 % (42.0-52.0) 37.6 % (42.0-52.0) Mean Corpuscular Volume 85 FL (80-99) 85 FL (80-99) Mean Corpuscular Hemoglobin 27.9 PG (27.0-31.0) 27.7 PG (27.0-31.0) Mean Corpuscular Hemoglobin Concent 32.9 G/DL (32.0-36.0) 32.7 G/DL (32.0-36.0) Red Cell Distribution Width 12.5 % (11.6-14.8) 12.5 % (11.6-14.8) Platelet Count 190 K/UL (150-450) 186 K/UL (150-450) Mean Platelet Volume 7.2 FL (6.5-10.1) 6.3 FL (6.5-10.1) Neutrophils (%) (Auto) 59.1 % (45.0-75.0) 58.0 % (45.0-75.0) Lymphocytes (%) (Auto) 29.9 % (20.0-45.0) 30.3 % (20.0-45.0) Monocytes (%) (Auto) 8.1 % (1.0-10.0) 8.3 % (1.0-10.0) Eosinophils (%) (Auto) 2.1 % (0.0-3.0) 2.4 % (0.0-3.0) Basophils (%) (Auto) 0.8 % (0.0-2.0) 1.1 % (0.0-2.0) Vancomycin Level Trough 22.1 ug/mL (5.0-12.0) Height (Feet): 5 Height (Inches): 11.00 Weight (Pounds): 155 Objective General Appearance: no apparent distress EENT: PERRL/EOMI Neck: supple Cardiovascular: normal rate Respiratory/Chest: normal breath sounds Abdomen: soft Extremities: non-tender, left iner foot ulceration Lorenzo Escobar MD May 19, 2020 11:52
[2020-05-19 12:00] VITALS: BP 149/88
[2020-05-19 12:00] LABS: BASOPHILS % (AUTO) 1.4 % (0.0-2.0); EOSINOPHILS % (AUTO) 1.6 % (0.0-3.0); HEMATOCRIT 38.2 % (42.0-52.0); HEMOGLOBIN 12.9 G/DL (14.2-18.0); LYMPHOCYTES % (AUTO) 27.1 % (20.0-45.0); MEAN CORPUSCULAR VOLUME 85 FL (80-99); MONOCYTES % (AUTO) 7.4 % (1.0-10.0); NEUTROPHILS % (AUTO) 62.6 % (45.0-75.0); PLATELET COUNT 201 K/UL (150-450); RED BLOOD COUNT 4.52 M/UL (4.70-6.10); RED CELL DISTRIBUTION WIDTH 12.8 % (11.6-14.8); WHITE BLOOD COUNT 5.5 K/UL (4.8-10.8)
--- NOTE | 2020-05-19 13:51 | Surgery Progress Note ---
Surgery Progress Note Subjective Additional Comments doing better states feels well no n/v/f/c labs okay Objective Last 24 Hour Vital Signs Date Time Temp Pulse Resp B/P (MAP) Pulse Ox O2 Delivery O2 Flow Rate FiO2 05/19/20 12:00 98.4 104 20 149/88 (108) 97 05/19/20 09:00 Room Air 05/19/20 08:00 98.8 105 20 150/75 (100) 97 05/19/20 04:00 97.2 89 20 134/96 (109) 96 05/19/20 00:00 98.2 87 18 127/74 (91) 95 05/18/20 21:00 Room Air 05/18/20 20:00 98.1 109 22 132/89 (103) 98 05/18/20 16:00 98.2 107 18 138/86 (103) 98 I&O Intake and Output 05/18/20 05/19/20 19:00 07:00 Intake Total 1100 ml 675.000 ml Output Total 500 ml Balance 1100 ml 175.000 ml Intake Oral 1100 ml 400 ml IV Total 275.000 ml Output Urine Total 500 ml # Voids 8 2 # Bowel Movements 1 Dressing: dry Wound: clean Cardiovascular: RSR Respiratory: clear Abdomen: soft, non-tender, present bowel sounds Extremities: cyanosis, no edema, no tenderness Laboratory Tests Test 05/19/20 11:44 White Blood Count 5.5 K/UL (4.8-10.8) Red Blood Count 4.52 M/UL (4.70-6.10) L Hemoglobin 12.9 G/DL (14.2-18.0) L Hematocrit 38.2 % (42.0-52.0) L Mean Corpuscular Volume 85 FL (80-99) Mean Corpuscular Hemoglobin 28.6 PG (27.0-31.0) Mean Corpuscular Hemoglobin Concent 33.8 G/DL (32.0-36.0) Red Cell Distribution Width 12.8 % (11.6-14.8) Platelet Count 201 K/UL (150-450) Mean Platelet Volume 6.8 FL (6.5-10.1) Neutrophils (%) (Auto) 62.6 % (45.0-75.0) Lymphocytes (%) (Auto) 27.1 % (20.0-45.0) Monocytes (%) (Auto) 7.4 % (1.0-10.0) Eosinophils (%) (Auto) 1.6 % (0.0-3.0) Basophils (%) (Auto) 1.4 % (0.0-2.0) Vancomycin Level Trough 16.5 ug/mL (5.0-12.0) H Plan Problems: (1) Osteomyelitis of ankle or foot, acute Assessment & Plan: MRI ordered pending results Patient is status post transmetatarsal amputation. There is a wire in the soft tissues dorsal to the fifth metatarsal stump. No acute fractures. No definite osseous erosions or unusual periosteal reaction Impression: Postoperative changes, as described No definite acute abnormality. No plain radiographic evidence of acute osteomyelitis. Note, however, limited sensitivity of plain radiographs for such. Consider MRI or bone scan for better characterization if there is high clinical suspicion (2) Cellulitis Assessment & Plan: abx as per ID keep leg elevated with pillows (3) Diabetic foot ulcer (4) Epileptic seizure, generalized (5) Diabetes mellitus (6) CAD (coronary artery disease) (7) Cardiomyopathy (8) PVD (peripheral vascular disease) Assessment & Plan: vascular consult placed Leg duplex and CT angio Abx per ID Antiplatelet and statin therapy & DVT precautions Podiatry f/u Smoking abstinence Will schedule patient for selective left leg angiogram to assess for revascularization Daily Ecotrin 81mg, Plavix 75mg and Statin Abx per ID Ok for d/c planning and will schedule the patient for selective left leg angiogram & revascularization as outpatient Abdominal aorta: There is hard and soft mural plaquing of the abdominal aorta. This does not result in any significant narrowing. The celiac axis demonstrates mild origin stenosis but no significant narrowing. There is classic branching anatomy and patency of the proximal branches. The superior mesenteric artery demonstrates considerable mural plaquing resulting in mild stenosis proximally. The proximal branches are all widely patent. Patent nonstenotic inferior mesenteric artery. Single right and left renal arteries, no significant stenosis demonstrated. Right lower extremity: Extensive hard and soft mural plaquing of but no significant stenosis of the common and external iliac arteries. There is a moderate to severe stenosis of the internal iliac origin. Patent nonstenotic common femoral artery. There is origin occlusion of the superficial femoral artery. There are areas of segmental reconstitution of the superficial femoral artery distally. The proximal popliteal artery reconstitutes and then reoccludes. It again reconstitutes just above the knee joint level, where it is severely diseased and then occludes below the knee joint level. The anterior tibial artery is essentially occluded over its entire length, although there are a few very small focal areas of segmental reconstitution noted. The dorsalis pedis artery reconstitutes well below the ankle from peroneal collaterals. There is origin occlusion of the tibioperoneal trunk, which does reconstitute distally. The posterior tibial artery appears to be patent, although extensive calcification precludes exclusion of significant stenoses. It forms a plantar vessel. The peroneal artery is patent, small in caliber, and demonstrates multiple focal at least moderate stenoses. It does reach the ankle. Left lower extremity: There is considerable hard and soft plaque involving the common and external iliac arteries, but no significant stenosis is demonstrated. The internal iliac artery and proximal branches are patent. Patent nonstenotic common femoral and profunda femoral arteries. Flush origin occlusion of the superficial femoral artery is demonstrated. The superficial femoral artery is occluded over its entire length, as is the popliteal artery. The anterior tibial artery is essentially occluded over its entire length, although there may be a few foci of segmental reconstitution. The dorsalis pedis artery reconstitutes well below the ankle via peroneal collaterals. The tibioperoneal trunk is occluded. The peroneal artery is patent, although demonstrates multiple stenoses, at least moderate. The posterior tibial artery is occluded over its entire length. Nonvascular: The liver, gallbladder, bile ducts, pancreas, spleen, adrenals, kidneys are all unremarkable. No retroperitoneal or mesenteric mass or adenopathy. The prostate is enlarged. No pelvic mass or adenopathy there is an unusual eggshell calcification in the left seminal vesicle. The appendix is normal. There is considerable stool throughout the colon. No evidence of diverticulosis or diverticulitis. No small bowel distention. No free or loculated intraperitoneal gas or fluid is evident. The included lung bases are essentially clear. The bones are unremarkable except for mild degenerative spondylosis changes IMPRESSION: Evidence of severe left lower extremity vascular disease, with complete occlusions of the entire lengths of the superficial femoral, popliteal, anterior tibial and posterior tibial arteries. There is reconstitution of the peroneal artery which forms the only patent tibial vessel. This is at least moderately disease. The peroneal artery does reconstitute the dorsalis pedis artery Evidence of severe right lower extremity peripheral vascular disease, with complete occlusions of the entire length of the superficial femoral artery. The popliteal artery is essentially occluded over its length, although there are some foci of segmental reconstitution. There are also complete occlusions of the posterior tibial and anterior tibial arteries. The reconstituted peroneal artery forms the only patent tibial vessel. (9) History of CVA (cerebrovascular accident) Additional Comments pending placement Josafat Narvaez May 19, 2020 13:51
--- NOTE | 2020-05-19 13:53 | NUR ---
*-*DISCHARGE PLANNED*-* PATIENT HAS BEEN ACCEPTED AND WILL BE DISCHARGED TO: [facility] P: [phone] FOR NURSE TO NURSE REPORT ROOM# 419 [facility] TRANSPORTATION SET FOR 3PM S/W [place] [id number] PLACED A CALL TO PATIENT DAUGHTER ADDIS, NO ANSWER , PHONE CONSTANTLY RANG, UNABLE TO TO LEAVE VOICEMAIL. Addendum: 05/19/20 at 1442 by FRITZ FOX CM DISCHARGE PLANNING DISCHARGE TRANSPORTATION LOCATION AND TIME HAS CANCELED AND CHANGED
--- NOTE | 2020-05-19 14:25 | NUR ---
NURSE NOTES: Dr. Benson's office notified of plan to discharge patient to SNF. Received orders from Dr. Rogers for left foot ulcer to be cleaned with betadine daily, wrap foot loosely with abdominal pad and kerlix dressing. Dr. Rogers to follow patient at [facility]. Orders noted and carried out.
--- NOTE | 2020-05-19 14:43 | NUR ---
-*DISCHARGE PLANNED*-* PATIENT HAS BEEN ACCEPTED AND WILL BE DISCHARGED TO: [facility] ROOM# 132.A [facility] TRANSP[facility] SET FOR WILL CALL PLACED A CALL TO PATIENT DAUGHTER ADDIS, NO ANSWER , PHONE CONSTANTLY RANG, UNABLE TO TO LEAVE VOICEMAIL.
--- NOTE | 2020-05-19 14:45 | NUR ---
*-*DISCHARGE PLANNED*-* PATIENT HAS BEEN ACCEPTED AND WILL BE DISCHARGED TO: [facility] P: [phone] FOR NURSE REPORT ROOM# 132.A [facility] TRANSP[facility] SET FOR WILL CALL PLACED A CALL TO PATIENT DAUGHTER ADDIS, NO ANSWER , PHONE CONSTANTLY RANG, UNABLE TO TO LEAVE VOICEMAIL.
--- NOTE | 2020-05-19 18:07 | NUR ---
NURSE NOTES: Patient discharged to [facility], AxOx4, not in distress, vitals stable prior to discharge, treatment done on left foot wound and dressing changed as per Dr. Rogers. PIV and ID band removed. All belonging checked and accounted for, $238 from safe returned to patient and home medications sent with patient. Report given to Jennie MNO at [facility]. All discharge instructions, medication list, and 2 prescriptions sent in folder with ambulance personnel. Pt left via BLS transport at 6:00pm.
--- NOTE | 2020-05-19 23:42 | Psych Consult Progress Note ---
Psychiatry Progress Note Psychiatry Progress Note Subjective the pt was less agitated poor memory Neurological/Psychiatric: Reports: anxiety, depressed, emotional problems; Denies: no symptoms, headache, numbness, paresthesia, pre-existing deficit, seizure, tingling, tremors, weakness, other Allergies: Coded Allergies: No Known Allergies (Unverified , 05/07/14) Objective Data Height (Feet): 5 Height (Inches): 11.00 Weight (Pounds): 155 General Appearance: alert Appearance: no abnormalities noted Behavior Mannerisms: good eye contact Mental Status Exam - Affect: blunted Speech: clear Mental Status Exam - Thought P: goal-directed, circumstantial Mental Status Exam - Suicidal: not present Assessment/Plan [place] I: vascular dementia anxiety do insomnia -remeron 7.5mg po qhs -provided ro/xt Status Narrative vascular dementia anxiety do insomnia -remeron 7.5mg po qhs -provided ro/xt Assessment/Plan: vascular dementia anxiety do insomnia -remeron 7.5mg po qhs -provided ro/xt Jose Raul Rodriguez MD May 19, 2020 23:42
--- NOTE | 2020-05-20 22:26 | Initial Psychiatric Evaluation ---
Psychiatry Consultation Psychiatry Consultation Reason for Consultation: 05/08/2020 Chief Complaint: Pain Allergies: Coded Allergies: No Known Allergies (Unverified , 05/07/14) Medication History Scheduled Amoxicillin/Potassium Clav 875-125* (Augmentin 875-125 Tablet*), 1 TAB ORAL TWICE A DAY, (Reported) Aspirin (Aspirin EC), 81 MG ORAL DAILY, (Reported) Aspirin Ec* (Aspirin Ec*), 81 MG PO DAILY, (Reported) Aspirin* (Aspir-Low*), 81 MG ORAL BEDTIME, (Reported) Atorvastatin Calcium* (Lipitor*), 20 MG ORAL BEDTIME Carvedilol* (Carvedilol*), 6.25 MG PO BID, (Reported) Carvedilol* (Carvedilol*), 6.25 MG ORAL BID, (Reported) Clopidogrel* (Clopidogrel*), Unknown Dose ORAL DAILY, (Reported) Dextran 70/Hypromellose (Artificial Tears Eye Drops*), 1 DROP BOTH EYES QID Doxycycline Monohydrate* (Doxycycline Monohydrate*), 100 MG ORAL TWICE A DAY, (Reported) Gabapentin* (Neurontin*), 600 MG ORAL BID, (Reported) Glipizide* (Glipizide*), Unknown Dose ORAL BIDAC, (Reported) Isosorbide Mononitrate (Isosorbide Mononitrate Er), 30 MG PO DAILY, (Reported) Metformin Hcl* (Metformin Hcl*), 1,000 MG PO BID, (Reported) Nortriptyline Hcl* (Pamelor*), Unknown Dose ORAL DAILY, (Reported) Pantoprazole* (Pantoprazole*), 40 MG ORAL DAILY, (Reported) Phenytoin Sodium Extended* (Dilantin*), 300 MG PO HS, (Reported) Phenytoin Sodium Extended* (Dilantin*), 200 MG ORAL TWICE A DAY Spironolactone* (Aldactone*), 25 MG PO DAILY, (Reported) Spironolactone* (Spironolactone*), 25 MG ORAL DAILY, (Reported) Terazosin HCl (Terazosin HCl), 5 MG PO BEDTIME, (Reported) Trimethoprim/Sulfamethoxazole (Bactrim Ds Tablet), 1 TAB ORAL TWICE A DAY, (Reported) [Cyproheptadine Hcl], 4 MG ORAL THREE TIMES A DAY Scheduled PRN Hydrocodone Bit/Acetaminophen 5-325* ([place] 5-325*), 1 TAB ORAL Q6H PRN for For Pain Ibuprofen (Motrin), 600 MG ORAL Q8H PRN for For Pain Ibuprofen* (Motrin*), 600 MG ORAL Q8H PRN for FOR PAIN, (Reported) Zolpidem Tartrate* (Zolpidem Tartrate*), 5 MG ORAL BEDTIME PRN for Insomnia, (Reported) Miscellaneous Medications Heparin Sod/Dextrose* (Heparin-D5w 25,000 Unit/500 Ml*), 22 UNIT IV, (Reported) Patient History Limited by: medical condition History Provided By: Patient Objective Data Height (Feet): 5 Height (Inches): 11.00 Weight (Pounds): 155 Assessment/Plan Status: stable Diagnosis [place] I: vascular dementia anxiety do insomnia -remeron 7.5mg po qhs -provided ro/xt Status Narrative vascular dementia anxiety do insomnia Jose Raul Rodriguez MD May 20, 2020 22:26
--- NOTE | 2020-05-21 15:22 | Discharge Summary ---
Discharge Summary Discharge Summary _ DATE OF ADMISSION: 05/08/2020 DATE OF DISCHARGE: 05/19/2020 DISCHARGED BY: Dr. Jaden Penn CONSULTANTS: Dr. Jose Raul Benson [facility] HOSPITAL COURSE: Patient is a 70-year-old male with history of diabetes, who presented to ED due to left foot pain. Patient has sharp deep pain with no aggravating factors. Pain is constant. He denied fever or chills. Upon evaluation at ED, he was noted with diabetic foot ulcer. Vital signs were stable. Blood work did not show any leukocytosis. Hemoglobin and hematocrit were stable. Electrolytes normal. Lactic acid 0.9. CRP 1.1. X-ray of the left foot showed transmetatarsal amputation. There was no definite acute abnormality. Patient was started on IV vancomycin. He was admitted for further evaluation. Medical Care Manager was consulted. On examination, ulceration was noted on the lateral dorsal aspect of the foot. There was no drainage, discharge or purulent matter. No cellulitis. No probing or undermining appreciated. He was given local wound care. He was given pain management with [place] and morphine. He was given Neurontin. He was evaluated by vascular surgeon. Patient has severe calcific arterial occlusive PAD. Patient will eventually need a selective left leg angiogram to assess for revascularization. Recommend dual antiplatelet and statin therapy with DVT precautions. Arterial duplex scan showed evidence of right superficial femoral artery occlusion. There was evidence of left superficial femoral and popliteal artery occlusive disease. He underwent saphenous vein mapping. The left greater saphenous and lesser sap henous veins were patent and compressible. He had episodes of agitation. He was provided a sitter. He was given Remeron 7.5 mg nightly. Patient will eventually need left leg angiogram and revascularization as outpatient. FINAL DIAGNOSES: Left foot cellulitis Peripheral vascular disease Nonhealing diabetic ulcer Type 2 diabetes Diabetic neuropathy Anemia of chronic disease DISPOSITION: Patient was discharged to SNF. DISCHARGE MEDICATIONS: Refer to Discharge Medication List. I have been assigned to complete a discharge summary on this account, I was not involved with the patient's management.--CARO Walker Jacqueline Robles NP May 21, 2020 15:22
--- NOTE | 2020-05-21 16:56 | NUR ---
CASE MANAGEMENT: Faxed CM review and clinical info (face sheet /DC summary) to GABRIEL FIGUEREDO @ [phone]. AUTH#[id number]
--- NOTE | 2020-05-22 01:30 | Consultation ---
DATE OF CONSULTATION: 05/10/2020 CONSULTING PHYSICIAN: Conrado Candelario M.D. REFERRING PHYSICIANS: 1. Noble Penn M.D. 2. Josafat Narvaez M.D. REASON FOR CONSULTATION: Left foot pain and ulceration. HISTORY OF PRESENT ILLNESS: This is a 70-year-old male who is well known to our vascular service. The patient has a history of noncompliance, daily smoker, hypertension, and diabetes. He had a previous lower extremity revascularization. He had a left foot ulceration, which has healed well. He had developed left foot ulceration wound and severe pain. Vascular surgery is consulted for evaluation. PAST MEDICAL HISTORY: As above. History of diabetes, hypertension, noncompliance, daily smoker, severe calcific arterial occlusive disease, left foot dressing, left foot amputation. MEDICATIONS: See attached MAR. ALLERGIES: No known drug allergies. SOCIAL HISTORY: Continues to smoke on a daily basis. FAMILY HISTORY: Unremarkable. SYSTEM REVIEW: CARDIOVASCULAR: No history of chest pain or palpitations. PULMONARY: No cough or hemoptysis. GASTROINTESTINAL: No history of abdominal pain, constipation, or diarrhea. GENITOURINARY: No urinary symptoms, frequency, or hematuria. NEUROLOGICAL: No history of strokes or seizures. PHYSICAL EXAMINATION: VITAL SIGNS: He is afebrile at 97, heart rate 80, blood pressure 146/70, and respiratory rate 16. NECK: The patient has palpable radial pulses. No evidence of carotid bruits. LUNGS: Clear to auscultation bilaterally. HEART: Regular rate and rhythm. ABDOMEN: Soft and nontender. EXTREMITIES: He has palpable femoral pulses. Absent popliteal and pedal pulses bilaterally. The left foot transmetatarsal amputation stump is clean, dry, and intact. There is a left transmetatarsal wound ulceration and necrosis noted laterally. . IMPRESSION: 1. Left transmetatarsal amputation, wound ulceration and necrosis. 2. Severe arterial occlusive disease with superficial femoral popliteal artery occlusion with noncompliance, daily smoker, arterial occlusive disease, hypertension, diabetes mellitus. PLAN: 1. We will obtain lower extremity duplex and CT angiogram to . 2. Continue antibiotics per Infectious Disease. 3. Continue with antiplatelet and statin therapy and DVT precaution. 4. Podiatry followup. 5. Smoking abstinence. 6. We will schedule the patient for selective left leg angiography to assess for revascularization. This can be performed as an outpatient. 7. The above was discussed at length with the patient and the nurse at the bedside. Conrado Candelario M.D. DR: PADDY JOB#: [id number] CC:
== END 2020-05-19 18:00 | DRG 344 ==
LOC: EDBD 14:25 → EMR 14:34 → 4E 17:08 → EDBEDREQ 17:19 → 4E 05-14 12:34
DX: E11.621 Type 2 diabetes mellitus with foot ulcer (principal); L03.116 Cellulitis of left lower limb; I42.9 Cardiomyopathy, unspecified; L97.529 Non-pressure chronic ulcer of other part of left foot with unspecified severity; G40.909 Epilepsy, unspecified, not intractable, without status epilepticus; I73.9 Peripheral vascular disease, unspecified; I25.10 Atherosclerotic heart disease of native coronary artery without angina pectoris; E11.42 Type 2 diabetes mellitus with diabetic polyneuropathy; E11.51 Type 2 diabetes mellitus with diabetic peripheral angiopathy without gangrene; E11.40 Type 2 diabetes mellitus with diabetic neuropathy, unspecified; D63.8 Anemia in other chronic diseases classified elsewhere; Z79.84 Long term (current) use of oral hypoglycemic drugs; Z79.82 Long term (current) use of aspirin; E11.69 Type 2 diabetes mellitus with other specified complication; M86.8X7 Other osteomyelitis, ankle and foot; Z89.432 Acquired absence of left foot; F01.50 Vascular dementia, unspecified severity, without behavioral disturbance, psychotic disturbance, mood disturbance, and anxiety; F41.9 Anxiety disorder, unspecified; G47.00 Insomnia, unspecified; F17.200 Nicotine dependence, unspecified, uncomplicated; Z86.73 Personal history of transient ischemic attack (TIA), and cerebral infarction without residual deficits
CPT/HCPCS: 36415; 71045; 75635; 80048; 80053; 80202; 82962; 83605; 83735; 84100; 85025; 85610; 85651; 85730; 86140; 87040; 93005; 93306; 93922; 93925; 93970; 96365; 96375; 96376; 99285; J1815; J2405; U0002

== ENCOUNTER 2020-09-18 18:36 | Inpatient (IN) | payer MEDICARE, MEDICAID ==
[~2020-09-18] VITALS: Ht 182.9 cm; Wt 68.0 kg
[~2020-09-18 18:36] MED LIST changes: +ASPIRIN-LOW81 MG ORAL; +BACTRIM-DS1 EA ORAL; +IBUPROFEN600 M1 ORAL; +NEURONTIN600 MG ORAL
[2020-09-18 18:49] VITALS: BP 122/82
--- NOTE | 2020-09-18 18:56 | NUR ---
Reported to the ER from [facility] with elevated BS >500. Patient also reported to have neutropathic pain. Had left toes amputated 1 year ago but wound is still healing to left outer foot. Ambulatory with some assistance.
[2020-09-18] MEDS ORDERED: Morphine Sulfate 4mg/ml Inj (IV USE ONLY) IVP ONE ×2 (19:15→22:15)
--- NOTE | 2020-09-18 19:15 | NUR ---
ED Nurse Note: Recieved report from am nurse to resume care, pt in bed awake, alert and oriented x 4, pt here for elevated blood sugar level and pain to left foot where he has all toes amputated, surgical area healed, small open wound noted on left lateral sode of foot, pt does c/o having pain to area at 8/10, was recently medicated with no relief, states he can not feel pain meds, is aware, pt gowned and placed on cardiac monitoring, will resume care as ordered and continue to closely monitor.
[2020-09-18 19:31] LABS: BASOPHILS % (AUTO) 0.7 % (0.0-2.0); HEMATOCRIT 37.8 % (42.0-52.0); HEMOGLOBIN 11.7 G/DL (14.2-18.0); LYMPHOCYTES % (AUTO) 23.3 % (20.0-45.0); MEAN CORPUSCULAR VOLUME 90 FL (80-99); MONOCYTES % (AUTO) 6.1 % (1.0-10.0); NEUTROPHILS % (AUTO) 68.9 % (45.0-75.0); PLATELET COUNT 213 K/UL (150-450); RED BLOOD COUNT 4.21 M/UL (4.70-6.10); RED CELL DISTRIBUTION WIDTH 13.9 % (11.6-14.8)
[2020-09-18 19:45] VITALS: BP 154/89
[2020-09-18 19:48] LABS: INR 0.9 (0.9-1.1)
[2020-09-18 19:53] LABS: ALANINE AMINOTRANSFERASE 25 U/L (12-78); ALBUMIN 3.4 G/DL (3.4-5.0); ALBUMIN/GLOBULIN RATIO 0.9 (1.0-2.7); ALKALINE PHOSPHATASE 144 U/L (46-116); ANION GAP 5 mmol/L (5-15); ASPARTATE AMINO TRANSFERASE 12 U/L (15-37); BILIRUBIN,TOTAL 0.3 MG/DL (0.2-1.0); BLOOD UREA NITROGEN 25 mg/dL (7-18); CALCIUM 9.4 MG/DL (8.5-10.1); CARBON DIOXIDE 30 MMOL/L (21-32); CHLORIDE 100 MMOL/L (98-107); CREATININE 1.6 MG/DL (0.55-1.30); POTASSIUM 5.7 MMOL/L (3.5-5.1); SODIUM 135 MMOL/L (136-145)
[2020-09-18] MEDS ORDERED: Insulin Human Regular 100units/ml 3ml IV ONE (21:00)
--- NOTE | 2020-09-18 21:15 | NUR ---
ED Nurse Note: Pt continues to rest quietly, IV fluids completed, pt tolerated well, orders recieved for insulin, given as ordered, pt also c/o having pain again and asking for pain meds, informed and new orders recieved, pt is to be admitted, will resume care and prepare for admission.
[2020-09-18 22:00] VITALS: BP 149/86
[2020-09-18] MEDS ORDERED: Piperacillin/Tazobactam 3.375 GM in NS 110 ML IVPB ONE (22:00)
--- NOTE | 2020-09-18 22:03 | Emergency Room Report ---
History of Present Illness General Chief Complaint: Abnormal Labs Source: Patient Present Illness HPI 70-year-old male presents for evaluation. Brought in by EMS from home. Complaining of left foot pain. History of diabetes. Has had the toes recently amputated. Sharp 10 out of 10 pain to the left foot. States he is got a wrap on there. States he is receiving home wound care. Concerned about a possible infection. Glucose critically high per EMS. States he is compliant with his medications. Denies fevers or chills. Denies chest pain or shortness of breath. No other aggravating relieving factors. 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 Patient History Past Medical History: DM, CVA/TIA Past Surgical History: none Pertinent Family History: none Social History: Denies: smoking, alcohol use, drug use Immunizations: UTD Reviewed Nursing Documentation: PMH: Agreed; PSxH: Agreed Nursing Documentation-PMH Hx Cardiac Problems: No Hx Hypertension: No Hx Pacemaker: No Hx Asthma: No Hx Diabetes: Yes Hx Cancer: No Hx Gastrointestinal Problems: No Hx Neurological Problems: Yes Hx Cerebrovascular Accident: Yes Hx Transient Ischemic Attacks: No Hx Dementia: No Hx Alzheimer's Disease: No Hx Parkinson's Disease: No Hx Meningitis: No Hx Encephalitis: No Hx Seizures: Yes Hx Epilepsy: No Hx Multiple Sclerosis: No Hx Cerebral Palsy: No Hx Amyotrophic Lat Sclerosis: No Hx [place] Syndrome: No Hx Paralysis: No Hx Peripheral Neuropathy: No 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 Hx Head Trauma: No Hx Traumatic Brain Injury: No Hx Memory Loss: No Hx Concentration Difficulty: No Hx Speech Problem: No Hx Tremors: No Hx Vertigo: No Hx Dizziness: Yes Hx Syncope: No Hx Headaches: Yes Hx Aphasia: No Hx Dysphasia: No Hx Numbness: No Hx Weakness: Yes - BLE Hx Fatigue: Yes Hx Neurologic Surgery: No Hx Brain Shunt: No Review of Systems All Other Systems: negative except mentioned in HPI Physical Exam Vital Signs Date Time Temp Pulse Resp B/P (MAP) Pulse Ox O2 Delivery O2 Flow Rate FiO2 09/18/20 18:16 98.6 78 18 164/80 (108) 98 Room Air Sp02 EP Interpretation: reviewed, normal General Appearance: no apparent distress, alert, GCS 15, non-toxic Head: normocephalic, atraumatic Eyes: bilateral eye normal inspection, bilateral eye PERRL ENT: hearing grossly normal, normal pharynx, no angioedema, normal voice Neck: full range of motion, supple/symm/no masses Respiratory: chest non-tender, lungs clear, normal breath sounds, speaking full sentences Cardiovascular #1: regular rate, rhythm, no edema Cardiovascular #2: 2+ carotid (R), 2+ carotid (L), 2+ radial (R), 2+ radial (L), 2+ dorsalis pedis (R), 2+ dorsalis pedis (L) Gastrointestinal: normal bowel sounds, non tender, soft, non-distended, no guarding, no rebound Rectal: deferred Genitourinary: normal inspection, no CVA tenderness Musculoskeletal: back normal, normal range of motion, gait/station normal, non- tender Neurologic: alert, motor strength/tone normal, oriented x3, sensory intact, responsive, speech normal Psychiatric: judgement/insight normal, memory normal, mood/affect normal, no suicidal/homicidal ideation Reflexes: 3+ bicep (R), 3+ bicep (L), 3+ tricep (R), 3+ tricep (L), 3+ knee (R), 3+ knee (L) Skin: other - All toes amputated left foot. Small chronic wound on lateral aspect. No erythema or induration Lymphatic: no adenopathy Medical Decision Making Diagnostic Impression: Primary Impression: Uncontrolled diabetes mellitus Qualified Codes: E13.65 - Other specified diabetes mellitus with hyperglycemia Additional Impressions: Renal insufficiency Hyperkalemia ER Course Hospital Course 70-year-old male presents with pain left foot, Accu-Chek critically high Differential diagnoses include: hyperglycemia, sepsis, DKA Clinical course Patient placed on stretcher. 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 After initial history and physical I ordered labs, IV fluids, pain meds, Xray Labs-glucose greater than 400, anion gap mildly elevated, no evidence of DKA, potassium 5.7, creatinine 1.6 Foot x-ray shows no evidence of gas or free air or anything to suggest infection or osteomyelitis IV fluids. Given insulin. Given antibiotics Case discussed with Dr. Najera and he agreed to accept the patient to his service for further care and support i. I feel this is a highly complex case requiring extensive working including EKG/Rhythm strip, Xray/CT/US, Blood/urine lab work, repeat exams while in ED, and administration of strong opiates/narcotics for pain control, admission to hospital or close patient follow up. diagnosis -uncontrolled diabetes, renal insufficiency, hyperkalemia admitted to [facility] in serious condition Laboratory Tests Test 09/18/20 18:45 09/18/20 21:20 White Blood Count 6.0 K/UL (4.8-10.8) Red Blood Count 4.21 M/UL (4.70-6.10) L Hemoglobin 11.7 G/DL (14.2-18.0) L Hematocrit 37.8 % (42.0-52.0) L Mean Corpuscular Volume 90 FL (80-99) Mean Corpuscular Hemoglobin 27.7 PG (27.0-31.0) Mean Corpuscular Hemoglobin Concent 30.8 G/DL (32.0-36.0) L Red Cell Distribution Width 13.9 % (11.6-14.8) Platelet Count 213 K/UL (150-450) Mean Platelet Volume 7.7 FL (6.5-10.1) Neutrophils (%) (Auto) 68.9 % (45.0-75.0) Lymphocytes (%) (Auto) 23.3 % (20.0-45.0) Monocytes (%) (Auto) 6.1 % (1.0-10.0) Eosinophils (%) (Auto) 1.0 % (0.0-3.0) Basophils (%) (Auto) 0.7 % (0.0-2.0) Prothrombin Time 10.3 SEC (9.30-11.50) Prothromb Time International Ratio 0.9 (0.9-1.1) Activated Partial Thromboplast Time 24 SEC (23-33) Sodium Level 135 MMOL/L (136-145) L Potassium Level 5.7 MMOL/L (3.5-5.1) H Chloride Level 100 MMOL/L (98-107) Carbon Dioxide Level 30 MMOL/L (21-32) Anion Gap 5 mmol/L (5-15) Blood Urea Nitrogen 25 mg/dL (7-18) H Creatinine 1.6 MG/DL (0.55-1.30) H Estimat Glomerular Filtration Rate 52.0 mL/min (>60) Glucose Level 494 MG/DL (74-106) H Calcium Level 9.4 MG/DL (8.5-10.1) Magnesium Level 2.0 MG/DL (1.8-2.4) Total Bilirubin 0.3 MG/DL (0.2-1.0) Aspartate Amino Transf (AST/SGOT) 12 U/L (15-37) L Alanine Aminotransferase (ALT/SGPT) 25 U/L (12-78) Alkaline Phosphatase 144 U/L (46-116) H Total Protein 7.1 G/DL (6.4-8.2) Albumin 3.4 G/DL (3.4-5.0) Globulin 3.7 g/dL Albumin/Globulin Ratio 0.9 (1.0-2.7) L Acetone Level Negative (NEGATIVE) Urine Color Pending Urine Appearance Pending Urine pH Pending Urine Specific [place] Pending Urine Protein Pending Urine Glucose (UA) Pending Urine Ketones Pending Urine Blood Pending Urine Nitrite Pending Urine Bilirubin Pending Urine Urobilinogen Pending Urine Leukocyte Esterase Pending Other X-Ray Diagnostic Results Other X-Ray Diagnostic Results : X-Ray ordered: L foot # of Views/Limited Vs Complete: 3 View Indication: Pain EP Interpretation: Yes Interpretation: no dislocation, no soft tissue swelling, no fractures, other - Amputation of the toes. No obvious evidence of osteomyelitis Impression: No acute disease Electronically Signed by: Electronically signed by Camden Sorto MD Last Vital Signs Date Time Temp Pulse Resp B/P (MAP) Pulse Ox O2 Delivery O2 Flow Rate FiO2 09/18/20 19:47 98.6 09/18/20 18:49 16 122/82 100 Room Air 09/18/20 18:16 78 Status: improved Disposition: ADMITTED INPATIENT Condition: Serious Referrals: NON PHYSICIAN (PCP) Camden Sorto MD Sep 18, 2020 22:03
[2020-09-18 22:20] LABS: APPEARANCE,URINE CLEAR; BILIRUBIN, URINE NEGATIVE (NEGATIVE); COLOR,URINE PALE YELLOW; GLUCOSE, URINE (UA) 4+ (NEGATIVE); KETONES,URINE NEGATIVE (NEGATIVE); LEUKOCYTE ESTERASE ,URINE NEGATIVE (NEGATIVE); NITRITE,URINE NEGATIVE (NEGATIVE); PH,URINE 6.5 (4.5-8.0); PROTEIN,URINE 1+ (NEGATIVE); UROBILINOGEN,URINE NORMAL MG/DL (0.0-1.0)
[2020-09-18] MEDS ORDERED: HYDROmorphone 1mg/ml Carpuject IVP ONE (23:30)
[2020-09-18] MEDS ORDERED: HYDROmorphone 1mg/ml Carpuject IVP PRN (23:30)
--- NOTE | 2020-09-18 23:30 | NUR ---
ED Nurse Note: Pt continues to rest in bed, waiting for room for admission, report called to floor nurse ELIESER Orosco, room is not ready yet, will wait for transfer to unit, pt has small open wound on left lateral foot, photos taken and recorded, pt swabbed for admit protocol, belongings list completed, s/w pt daughter Kristal and informed of pt admission and gave room and phone number, pt also re-medicated for pain, v/s stable, 02 sat=99% on RA, pt has no s/s of adverse reactions noted from IV antibiotics given, will wait for room ready to send pt up.
[2020-09-18] MEDS ORDERED: DiphenhydrAMINE 50mg/ml Inj ONE (23:44)
[2020-09-18 23:45] VITALS: BP 145/77
[2020-09-18] MEDS ORDERED: HYDROmorphone 1mg/ml Carpuject ONE (23:45)
--- NOTE | 2020-09-18 23:50 | NUR ---
NURSE NOTES: Report get endorsed from NEL.
--- NOTE | 2020-09-19 00:20 | NUR ---
ED Nurse Note: Pt room is ready for admission, pt is awake and alert, pain meds slightly effective with pain level now at 6/10, denies chest pain, no sob or labored breathing, IV site intact and patent, pt has all belongings, pt being taken to unit via gurney with acls protocols and monitoring, with RN-Curtis and ER-Tech, nad noted during pt transport to unit.
--- NOTE | 2020-09-19 00:20 | NUR ---
NURSE NOTES: Pt admitted via gurney from ED. Awake and alert. No SOB/ No N/V noted. Despite getting pain medication @ ED, pt complains for left foot pain. Noted infected foot. Photo taken and dressing done with NS cleaning and applying gauze. IV is left AC 18G without infiltration. Given unit orientation and fall precautions. Done checking belongings. Pt wants to keep his hernández himself. Apply pvc monitor. Call light within reach. Will continue to monitor.
[2020-09-19 00:30] VITALS: BP 141/90
--- NOTE | 2020-09-19 01:00 | NUR ---
NURSE NOTES: Call Dr. Najera and receive admission orders including home medication. Order noted and carried out. Will continue to monitor.
[2020-09-19] MEDS ORDERED: HYDROcodone/Acetamin 5/325 tab ORAL PRN (01:30)
[2020-09-19] MEDS ORDERED: HYDROmorphone 1mg/ml Carpuject IVP PRN (01:30)
[2020-09-19] MEDS: Vancomycin 1.25gm Premix q24h IVPB SCH (03:17)
--- NOTE | 2020-09-19 03:30 | NUR ---
NURSE NOTES: After getting prn Dialudid 2mg IVS, decreased pain on his left foot. Started ATB IVS. No adverse reactions noted. Will continue to monitor.
[2020-09-19 04:00] VITALS: BP 141/89
[2020-09-19] MEDS ORDERED: Piperacillin/Tazobactam 3.375 GM in NS 110 ML IVPB SCH (06:00)
[2020-09-19] MEDS: NovoLOG Insulin Flexpen SUBQ SCH ×4 (06:15→21:07)
--- NOTE | 2020-09-19 06:27 | NUR ---
NURSE HAND-OFF REPORT: Important Events on Shift:Admission for left foot infection and hyperkalemia. Pain control-prn pain medication given x1. ATB started. Patient Status: [stable] Diet: [CCHO medium] Pending Orders: [] Pending Results/Labs:[Venous Duplex] Pending MD notification:[] Latest Vital Signs: Temperature 98.0 , Pulse 104 , B/P 141 /89 , Respiratory Rate 18 , O2 SAT 95 , Room Air, O2 Flow Rate . Vital Sign Comment: [] EKG Rhythm: Sinus Tachycardia Rhythm change?: N MD Notified?: - MD Response: Latest Manzanares Fall Score: 60 Fall Risk: High Risk Safety Measures: Call light Within Reach, Bed Alarm , Side Rails Side Rails x2, Bed position Low and Locked. Fall Precautions: Yellow Socks Door Sign Patient Fall Education
[2020-09-19 07:17] LABS: BASOPHILS % (AUTO) 0.5 % (0.0-2.0); EOSINOPHILS % (AUTO) 1.2 % (0.0-3.0); HEMATOCRIT 35.4 % (42.0-52.0); HEMOGLOBIN 11.2 G/DL (14.2-18.0); LYMPHOCYTES % (AUTO) 21.7 % (20.0-45.0); MEAN CORPUSCULAR VOLUME 89 FL (80-99); MONOCYTES % (AUTO) 6.8 % (1.0-10.0); NEUTROPHILS % (AUTO) 69.9 % (45.0-75.0); PLATELET COUNT 203 K/UL (150-450); RED BLOOD COUNT 3.99 M/UL (4.70-6.10); RED CELL DISTRIBUTION WIDTH 13.8 % (11.6-14.8); WHITE BLOOD COUNT 7.6 K/UL (4.8-10.8)
--- NOTE | 2020-09-19 07:27 | NUR ---
NURSE NOTES: Given report to ELIESER Dorman. Round is made.
[2020-09-19 07:55] LABS: ALANINE AMINOTRANSFERASE 23 U/L (12-78); ALBUMIN 3.1 G/DL (3.4-5.0); ALBUMIN/GLOBULIN RATIO 0.9 (1.0-2.7); ALKALINE PHOSPHATASE 127 U/L (46-116); ANION GAP 5 mmol/L (5-15); ASPARTATE AMINO TRANSFERASE 13 U/L (15-37); BILIRUBIN,TOTAL 0.3 MG/DL (0.2-1.0); BLOOD UREA NITROGEN 19 mg/dL (7-18); CARBON DIOXIDE 29 MMOL/L (21-32); CHLORIDE 104 MMOL/L (98-107); CREATININE 1.2 MG/DL (0.55-1.30); PHOSPHORUS 3.5 MG/DL (2.5-4.9); SODIUM 138 MMOL/L (136-145)
[2020-09-19 08:00] VITALS: BP 159/95
--- NOTE | 2020-09-19 08:02 | NUR ---
NURSE NOTES: Received patient report from ELIESER Tamayo. Patient is AO x4 awake and able to make needs known. Patient complains of 8/10 pain on left foot. Patient is on room air and shows no signs of respiratory distress. IV is intact and patent. Running 1/2 NS @ 75cc/hr. There are no signs of erythema, infiltration, or bleeding. Bed is in the lowest position, call light is within reach, side rails up x3. Will continue to monitor.
[2020-09-19] MEDS: Carvedilol 6.25mg Tab ORAL SCH ×2 (08:46→17:54)
[2020-09-19] MEDS: Aspirin EC 81mg tab ORAL SCH (08:47)
[2020-09-19] MEDS: Imdur 30mg tab ORAL SCH (08:47)
[2020-09-19] MEDS ORDERED: Phenytoin 100mg cap ORAL SCH (09:00)
[2020-09-19] MEDS ORDERED: Nortriptyline 25mg cap ORAL SCH (09:00)
--- NOTE | 2020-09-19 09:34 | Consultation ---
History of Present Illness General Chief Complaint: Abnormal Labs Present Illness HPI This is a 70-year-old male with past medical history of diabetes mellitus, CVA, and seizures, who was brought in by EMS from home for evaluation of left foot pain. Patient reported having his left toes recently amputated. Patient has been receiving home wound care but was concerned about a possible infection. Patient's glucose was critically high on arrival but stated he was compliant with his medications. His glucose was greater than 400 with mildly elevated anion gap but he had no evidence of DKA. Foot x-ray shows no evidence of gas or free air or anything to suggest infection or osteomyelitis. Patient was admitted to the hospital for further management. PAST MEDICAL HISTORY: Diabetes mellitus, CVA, seizures Allergies: Coded Allergies: No Known Allergies (Unverified , 05/07/14) Medication History Scheduled Amoxicillin/Potassium Clav 875-125* (Augmentin 875-125 Tablet*), 1 TAB ORAL TWICE A DAY, (Reported) Aspirin (Aspirin EC), 81 MG ORAL DAILY, (Reported) Aspirin Ec* (Aspirin Ec*), 81 MG PO DAILY, (Reported) Aspirin* (Aspir-Low*), 81 MG ORAL BEDTIME, (Reported) Atorvastatin Calcium* (Lipitor*), 20 MG ORAL BEDTIME Carvedilol* (Carvedilol*), 6.25 MG PO BID, (Reported) Carvedilol* (Carvedilol*), 6.25 MG ORAL BID, (Reported) Clopidogrel* (Clopidogrel*), Unknown Dose ORAL DAILY, (Reported) Dextran 70/Hypromellose (Artificial Tears Eye Drops*), 1 DROP BOTH EYES QID Doxycycline Monohydrate* (Doxycycline Monohydrate*), 100 MG ORAL TWICE A DAY, (Reported) Gabapentin* (Neurontin*), 600 MG ORAL BID, (Reported) Glipizide* (Glipizide*), Unknown Dose ORAL BIDAC, (Reported) Isosorbide Mononitrate (Isosorbide Mononitrate Er), 30 MG PO DAILY, (Reported) Metformin Hcl* (Metformin Hcl*), 1,000 MG PO BID, (Reported) Nortriptyline Hcl* (Pamelor*), Unknown Dose ORAL DAILY, (Reported) Pantoprazole* (Pantoprazole*), 40 MG ORAL DAILY, (Reported) Phenytoin Sodium Extended* (Dilantin*), 300 MG PO HS, (Reported) Phenytoin Sodium Extended* (Dilantin*), 200 MG ORAL TWICE A DAY Spironolactone* (Aldactone*), 25 MG PO DAILY, (Reported) Spironolactone* (Spironolactone*), 25 MG ORAL DAILY, (Reported) Terazosin HCl (Terazosin HCl), 5 MG PO BEDTIME, (Reported) Trimethoprim/Sulfamethoxazole (Bactrim Ds Tablet), 1 TAB ORAL TWICE A DAY, (Reported) [Cyproheptadine Hcl], 4 MG ORAL THREE TIMES A DAY Scheduled PRN Hydrocodone Bit/Acetaminophen 5-325* ([place] 5-325*), 1 TAB ORAL Q6H PRN for For Pain Ibuprofen (Motrin), 600 MG ORAL Q8H PRN for For Pain Ibuprofen* (Motrin*), 600 MG ORAL Q8H PRN for FOR PAIN, (Reported) Zolpidem Tartrate* (Zolpidem Tartrate*), 5 MG ORAL BEDTIME PRN for Insomnia, (Reported) Miscellaneous Medications Heparin Sod/Dextrose* (Heparin-D5w 25,000 Unit/500 Ml*), 22 UNIT IV, (Reported) Patient History Healthcare decision maker Resuscitation status Advanced Directive on File Review of Systems All Other Systems: negative except mentioned in HPI Physical Exam Last 24 Hour Vital Signs Date Time Temp Pulse Resp B/P (MAP) Pulse Ox O2 Delivery O2 Flow Rate FiO2 09/19/20 09:17 97.4 09/19/20 08:47 159/95 09/19/20 08:46 91 159/95 09/19/20 08:00 97.4 91 18 159/95 (116) 95 09/19/20 04:00 104 09/19/20 04:00 98.0 90 18 141/89 (106) 95 09/19/20 00:30 97.3 95 18 141/90 (107) 95 09/19/20 00:30 Room Air 09/19/20 00:20 98.6 83 16 149/86 100 Room Air 09/18/20 23:45 98.4 81 15 145/77 99 Room Air 09/18/20 22:49 98.6 09/18/20 22:00 98.6 83 16 149/86 100 Room Air 09/18/20 19:47 98.6 09/18/20 19:45 98.6 88 16 154/89 98 Room Air 09/18/20 18:49 16 122/82 100 Room Air 09/18/20 18:16 98.6 78 18 164/80 (108) 98 Room Air Intake and Output 09/18/20 09/19/20 19:00 07:00 Intake Total 300 ml Output Total 1100 ml Balance -800 ml Intake Oral 300 ml Output Urine Total 1100 ml # Voids 6 Laboratory Tests Test 09/18/20 18:45 09/18/20 21:20 09/19/20 06:40 White Blood Count 6.0 K/UL (4.8-10.8) 7.6 K/UL (4.8-10.8) Red Blood Count 4.21 M/UL (4.70-6.10) L 3.99 M/UL (4.70-6.10) L Hemoglobin 11.7 G/DL (14.2-18.0) L 11.2 G/DL (14.2-18.0) L Hematocrit 37.8 % (42.0-52.0) L 35.4 % (42.0-52.0) L Mean Corpuscular Volume 90 FL (80-99) 89 FL (80-99) Mean Corpuscular Hemoglobin 27.7 PG (27.0-31.0) 28.2 PG (27.0-31.0) Mean Corpuscular Hemoglobin Concent 30.8 G/DL (32.0-36.0) L 31.8 G/DL (32.0-36.0) L Red Cell Distribution Width 13.9 % (11.6-14.8) 13.8 % (11.6-14.8) Platelet Count 213 K/UL (150-450) 203 K/UL (150-450) Mean Platelet Volume 7.7 FL (6.5-10.1) 7.6 FL (6.5-10.1) Neutrophils (%) (Auto) 68.9 % (45.0-75.0) 69.9 % (45.0-75.0) Lymphocytes (%) (Auto) 23.3 % (20.0-45.0) 21.7 % (20.0-45.0) Monocytes (%) (Auto) 6.1 % (1.0-10.0) 6.8 % (1.0-10.0) Eosinophils (%) (Auto) 1.0 % (0.0-3.0) 1.2 % (0.0-3.0) Basophils (%) (Auto) 0.7 % (0.0-2.0) 0.5 % (0.0-2.0) Prothrombin Time 10.3 SEC (9.30-11.50) Prothromb Time International Ratio 0.9 (0.9-1.1) Activated Partial Thromboplast Time 24 SEC (23-33) Sodium Level 135 MMOL/L (136-145) L 138 MMOL/L (136-145) Potassium Level 5.7 MMOL/L (3.5-5.1) H 5.0 MMOL/L (3.5-5.1) Chloride Level 100 MMOL/L (98-107) 104 MMOL/L (98-107) Carbon Dioxide Level 30 MMOL/L (21-32) 29 MMOL/L (21-32) Anion Gap 5 mmol/L (5-15) 5 mmol/L (5-15) Blood Urea Nitrogen 25 mg/dL (7-18) H 19 mg/dL (7-18) H Creatinine 1.6 MG/DL (0.55-1.30) H 1.2 MG/DL (0.55-1.30) Estimat Glomerular Filtration Rate 52.0 mL/min (>60) > 60 mL/min (>60) Glucose Level 494 MG/DL (74-106) H 302 MG/DL (74-106) #H Calcium Level 9.4 MG/DL (8.5-10.1) 9.0 MG/DL (8.5-10.1) Magnesium Level 2.0 MG/DL (1.8-2.4) 1.8 MG/DL (1.8-2.4) Total Bilirubin 0.3 MG/DL (0.2-1.0) 0.3 MG/DL (0.2-1.0) Aspartate Amino Transf (AST/SGOT) 12 U/L (15-37) L 13 U/L (15-37) L Alanine Aminotransferase (ALT/SGPT) 25 U/L (12-78) 23 U/L (12-78) Alkaline Phosphatase 144 U/L (46-116) H 127 U/L (46-116) H Total Protein 7.1 G/DL (6.4-8.2) 6.7 G/DL (6.4-8.2) Albumin 3.4 G/DL (3.4-5.0) 3.1 G/DL (3.4-5.0) L Globulin 3.7 g/dL 3.6 g/dL Albumin/Globulin Ratio 0.9 (1.0-2.7) L 0.9 (1.0-2.7) L Acetone Level Negative (NEGATIVE) Urine Color Pale yellow Urine Appearance Clear Urine pH 6.5 (4.5-8.0) Urine Specific [place] 1.005 (1.005-1.035) Urine Protein 1+ (NEGATIVE) H Urine Glucose (UA) 4+ (NEGATIVE) H Urine Ketones Negative (NEGATIVE) Urine Blood Negative (NEGATIVE) Urine Nitrite Negative (NEGATIVE) Urine Bilirubin Negative (NEGATIVE) Urine Urobilinogen Normal MG/DL (0.0-1.0) Urine Leukocyte Esterase Negative (NEGATIVE) Urine RBC 0 /HPF (0 - 0) Urine WBC 0-2 /HPF (0 - 0) Urine Squamous Epithelial Cells None /LPF (NONE/OCC) Urine Bacteria Occasional /HPF (NONE) Hemoglobin A1c 12.2 % (4.3-6.0) H Phosphorus Level 3.5 MG/DL (2.5-4.9) Microbiology Date/Time Source Procedure Growth Status 09/18/20 22:55 Rectum Received Height (Feet): 6 Height (Inches): 0.00 Weight (Pounds): 150 Medications Current Medications Medications (Trade) Dose Ordered Sig/Mell Route PRN Reason Start Time Stop Time Status Last Admin Dose Admin Acetaminophen/ Hydrocodone Bitart ([place] 5/325) 1 tab Q6H PRN ORAL Mild Pain (Pain Scale 1-3) 09/19/20 01:30 09/26/20 01:29 Aspirin (Ecotrin) 81 mg DAILY ORAL 09/19/20 09:00 11/03/20 08:59 09/19/20 08:47 Atorvastatin Calcium (Lipitor) 20 mg BEDTIME ORAL 09/19/20 21:00 12/18/20 20:59 Carvedilol (Coreg) 6.25 mg BID ORAL 09/19/20 09:00 10/19/20 08:59 09/19/20 08:46 Clonidine HCl (Catapres Tab) 0.1 mg Q4H PRN ORAL SBP>160MMHG 09/19/20 01:45 12/18/20 01:44 Clopidogrel Bisulfate (Plavix) 75 mg DAILY ORAL 09/19/20 09:00 10/19/20 08:59 09/19/20 08:46 Dextrose (Dextrose 50%) 25 ml Q30M PRN IV Hypoglycemia 09/19/20 01:30 12/18/20 01:29 Dextrose (Dextrose 50%) 50 ml Q30M PRN IV Hypoglycemia 09/19/20 01:30 12/18/20 01:29 Gabapentin (Neurontin) 600 mg BID ORAL 09/19/20 09:00 10/19/20 08:59 09/19/20 08:47 Hydromorphone HCl (Dilaudid) 1 mg Q6H PRN IVP Moderate Pain (Pain Scale 4-6) 09/19/20 01:30 09/26/20 01:29 Hydromorphone HCl (Dilaudid) 2 mg Q6H PRN IVP Severe Pain (Pain Scale 7-10) 09/19/20 01:30 09/26/20 01:29 09/19/20 08:47 Insulin Aspart (NovoLOG) BEFORE MEALS AND HS SUBQ 09/19/20 06:30 12/18/20 06:29 09/19/20 06:15 Isosorbide Mononitrate (Imdur) 30 mg DAILY ORAL 09/19/20 09:00 10/19/20 08:59 09/19/20 08:47 Ondansetron HCl (Zofran) 4 mg Q4H PRN IVP Nausea & Vomiting 09/19/20 01:30 10/19/20 01:29 Pantoprazole (Protonix) 40 mg DAILY ORAL 09/19/20 09:00 10/19/20 08:59 09/19/20 08:46 Phenytoin (Dilantin) 200 mg TWICE A DAY ORAL 09/19/20 09:00 11/03/20 08:59 09/19/20 08:47 Piperacillin Sod/ Tazobactam Sod 3.375 gm/Sodium Chloride 110 ml @ 27.5 mls/hr EVERY 8 HOURS IVPB 09/19/20 06:00 09/24/20 05:59 09/19/20 06:14 Sodium Chloride 1,000 ml @ 75 mls/hr [id number] IV 09/19/20 02:00 10/19/20 01:59 09/19/20 02:29 Terazosin HCl (Hytrin) 5 mg BEDTIME ORAL 09/19/20 21:00 10/19/20 20:59 Vancomycin HCl 250 ml @ 166.667 mls/hr Q24H IVPB 09/19/20 03:00 09/24/20 02:59 09/19/20 03:17 Vancomycin HCl ([facility]anco pharmacy to dose) 1 ea DAILY PRN MISC Per rx protocol 09/19/20 01:30 10/19/20 01:29 Zolpidem Tartrate (Ambien) 5 mg BEDTIME PRN ORAL Insomnia 09/19/20 01:45 09/26/20 01:44 Objective Narrative General: Patient is laying in bed with normal work of breathing on room air HEENT: Head exam reveals that the head is normocephalic, atraumatic without deformity or unusual swelling. Pupils are PERRLA. CHEST AND LUNGS: Reveals clear, normal, symmetrical breath sounds with no adventitious sounds. CARDIOVASCULAR: Reveals normal S1, S2 without murmurs, rubs, or clicks. ABDOMEN: Soft with no tenderness or organomegaly. RECTAL: Deferred. MUSCULOSKELETAL: There is no tenderness to palpation. Range of motion is normal. SKIN: All left foot toes amputated. Small chronic wound on the lateral aspect of left foot without erythema or induration. NEUROLOGICAL: Alert and oriented x3 , nonfocal Assessment/Plan Diagnosis [place] I: #left foot osteo #r/o sepsis #hyponatremia #hyperkalemia #JASMIN #DM #HTN #HLD - admit inpatient - IVF - IV antibiotics - pain control - ID eval - podiatry eval - surgery eval - resume home meds - monitor BG - hold metformin - foot MRI -time spent 65 min Babs Najera M.D. Sep 19, 2020 09:34
--- NOTE | 2020-09-19 10:03 | NUR ---
CASE MANAGEMENT:REVIEW 70 YR OLD MALE BIBA FROM HOME CC: ABNORMAL LABS SI: DM OOC. HYPERKALEMIA. RENAL INSUFFICIENCY 98.6 78 18 164/80 98% ON RA K+5.7 BUN+25 CR+1.6 GLUCOSE+494 IS: 1L NS BOLUS X2 IV MORPHINE X2 IV DILAUDID X1 IV INSULIN X1 IV ZOSYN XRAY RT FOOT BLOOD CX : TO TELEMETRY DCP; FROM HOME
[2020-09-19] MEDS ORDERED: Gadavist 7.5mMol/7.5ml vial IV PRN (10:15)
--- NOTE | 2020-09-19 11:25 | NUR ---
PT EVALUATION NOTE Patient seen for initial evaluation and treatment initiated. Patient presents with BLE weakness, L foot pain and decreased balance which impairs patient's ability to perform mobility tasks safely. Patient able to come to sitting at the EOB with SBA. Patient requires CGA/min assist for sit to stand holding on to the IV pole, patient declined to use SPC or FWW for transfers and ambulation. Patient able to ambulate 25 ft holding on to IV pole, unsteady and antalgic gait pattern. Patient will benefit from skilled inpatient PT intervention to increase LE strength and postural stability for improved level of functional mobility, safety and activity tolerance. Recommend discharge home with home PT. Patient has SPC and rollator. Addendum: 09/19/20 at 1253 by IZZY YANES PT Amended: Links added.
--- NOTE | 2020-09-19 11:59 | Consultation ---
DATE OF CONSULTATION: 09/19/2020 INFECTIOUS DISEASES CONSULTATION CONSULTING PHYSICIAN: Herminio Boss MD PRIMARY ATTENDING PHYSICIAN: Babs Najera MD REASON FOR CONSULTATION: Diabetic foot ulcer. HISTORY OF PRESENT ILLNESS: This is a 70-year-old male admitted yesterday from home complaining of left foot pain. The patient had history of toe amputation in the left foot and peripheral vascular disease, had chronic wound in the area. He was found to have hyperglycemic with blood sugar of 494. PAST MEDICAL HISTORY: Diabetes mellitus, peripheral vascular disease, anemia, dementia, status post CVA, TIA. ALLERGIES: No known drug allergies. MEDICATIONS: Getting atorvastatin, , phenytoin, Protonix, gabapentin, Plavix, carvedilol, aspirin, insulin, Zosyn, vancomycin, sodium chloride, Ambien, hydromorphone. SOCIAL HISTORY: Single, has history of smoking, also smoked marijuana, drink alcohol and drug abuse. REVIEW OF SYSTEMS: As per history of present illness. No fever. No chills. No coughing. No shortness of breath. No nausea. No vomiting. No dysuria. PHYSICAL EXAMINATION: VITAL SIGNS: Temperature is 97.4, pulse 91, blood pressure 159/95. GENERAL APPEARANCE: No acute distress. HEAD AND NECK: [place] conjunctiva. HEART: Normal rate. LUNGS: Clear. ABDOMEN: Soft and nontender. EXTREMITIES: No edema. All of the toes in the left foot are amputated. SKIN: Small ulceration in the lateral fifth metatarsal area. IMPRESSION: 1. Diabetic foot ulcer, we will try to rule out underlying osteomyelitis. 2. Diabetes mellitus with hyperglycemia. 3. Hyperkalemia. 4. Acute renal failure. 5. Peripheral vascular disease. RECOMMENDATION: Continue IV vancomycin. Change Zosyn to ceftriaxone. We will follow up MRI of the foot. At the end of my consult, I thank Dr. Najera, for involving me in the care of this patient. Herminio Boss M.D. DR: Msaoud JOB#: [id number] CC:
[2020-09-19 12:00] VITALS: BP 148/87
[2020-09-19] MEDS: cefTRIAXone 2 GM in D5W 55 ML IVPB SCH (13:15)
--- NOTE | 2020-09-19 13:18 | Consultation ---
Consult Note Consult Note DATE OF CONSULTATION: 09/19/2020 CONSULTING PHYSICIAN: Vic Choudhary MD. ATTENDING PHYSICIAN: Dr. Najera REASON FOR CONSULTATION: Smoker, history of seizure HISTORY OF PRESENT ILLNESS: This is a 70-year-old male with past medical history of diabetes mellitus, CVA, and seizures, who was brought in by EMS from home for evaluation of left foot pain. Patient reported having his left toes recently amputated. Patient has been receiving home wound care but was concerned about a possible infection. Patient's glucose was critically high on arrival but stated he was compliant with his medications. His glucose was greater than 400 with mildly elevated anion gap but he had no evidence of DKA. Foot x-ray shows no evidence of gas or free air or anything to suggest infection or osteomyelitis. Patient was admitted to the hospital for further management. PAST MEDICAL HISTORY: Diabetes mellitus, CVA, seizures MEDICATIONS: Augmentin, aspirin, atorvastatin, carvedilol, clopidogrel, doxycycline, gabapentin, glipizide, heparin, [place], ibuprofen, isosorbide mononitrate, Metformin, nortriptyline, pantoprazole, phenytoin, spironolactone, Terazosin, Bactrim, zolpidem ALLERGIES: No known allergies FAMILY HISTORY: Unknown PERSONAL/SOCIAL HISTORY: Patient is from home REVIEW OF SYSTEMS: Negative except mentioned in HPI PHYSICAL EXAMINATION: VITAL SIGNS: Blood pressure 148/87, heart rate 85, respiratory rate 20, weight 68 kg, height 183 cm. General: Patient is laying in bed with normal work of breathing on room air HEENT: Head exam reveals that the head is normocephalic, atraumatic without deformity or unusual swelling. Pupils are PERRLA. CHEST AND LUNGS: Reveals clear, normal, symmetrical breath sounds with no adventitious sounds. CARDIOVASCULAR: Reveals normal S1, S2 without murmurs, rubs, or clicks. ABDOMEN: Soft with no tenderness or organomegaly. RECTAL: Deferred. MUSCULOSKELETAL: There is no tenderness to palpation. Range of motion is normal. SKIN: All left foot toes amputated. Small chronic wound on the lateral aspect of left foot without erythema or induration. NEUROLOGICAL: Alert and oriented x3 , nonfocal LABORATORY DATA: Laboratory testing shows hemoglobin 11.2, hematocrit 35.4. Chemistries show BUN 19, glucose 302, A1c 12.2 Assessment/Plan 1. Diabetic foot ulcer - rule out osteomyelitis with follow-up MRI of the foot 2. Uncontrolled diabetes mellitus with hyperglycemia -BG control -A1c 12.2 3. Hyperkalemia - resolved 4. Acute renal failure - per primary MD 5 .History of seizure -Continue Dilantin 6. Risk of aspiration pneumonia given history of seizure -Monitor for seizure -Monitor for fever 7. Leukocytosis -On antibiotics per ID 8. ex-smoker The care for this patient was discussed with my supervising physician. Time spent for this case was approximately 31 minutes. Asher Parikh Sep 19, 2020 13:18
--- NOTE | 2020-09-19 13:39 | NUR ---
INSURANCE CLINICALS/REVIEW FAXED TO [facility] #[phone] fax# [phone]
--- NOTE | 2020-09-19 13:55 | Diagnostic Imaging Report ---
Indication: Lower extremity pain Technique: Grayscale and duplex images of the bilateral lower extremity veins Comparison: None Findings: Bilaterally, grayscale and duplex images demonstrate no evidence of intraluminal thrombus. Normal phasic Doppler waveforms, demonstrating normal augmentation response and no evidence of valvular insufficiency. Greater saphenous vein(s) and tibial veins are patent. Normal compressibility. Impression: Negative for evidence of lower extremity deep venous thrombosis bilaterally
--- NOTE | 2020-09-19 14:02 | Diagnostic Imaging Report ---
Indication: Shortness of breath Technique: One view of the chest Comparison: 05/10/2020 Findings: Interim development of bilateral infiltrates in a predominantly perihilar distribution. The heart size is normal. The pleural spaces are clear Impression: Bilateral infiltrates, appearance nonspecific as regards etiology
--- NOTE | 2020-09-19 15:03 | NUR ---
NURSE NOTES: Patient was supposed to get MRI on left foot per Jeremiah Najera. Patient refused to do it today. Tech said they would try again tomorrow.Dr. Najera aware.
[2020-09-19 16:00] VITALS: BP 138/78
--- NOTE | 2020-09-19 16:58 | Consultation ---
History of Present Illness General Date patient seen: Sep 19, 2020 Reason for Hospitalization: Abnormal Labs Present Illness HPI 70-year-old male presented by EMS from home from home complaining of left foot pain. History of diabetes. Has had the toes recently amputated. Sharp 10 out of 10 pain to the left foot. States he is got a wrap on there. States he is receiving home wound care. Concerned about a possible infection. Glucose critically high per EMS. States he is compliant with his medications. Denies fevers or chills. Denies chest pain or shortness of breath. No other aggravating relieving factors. Denies any other associated symptoms. Surgery called to evaluate assist with care. Patient states after his amputation he was doing well but recently started noticing some pain from the lateral aspect of the left foot noted to have an open wound. Patient seen, patient by, chart reviewed. Allergies: Coded Allergies: No Known Allergies (Unverified , 05/07/14) COVID-19 Screening Contact w/high risk pt: No Recent Travel to affected area: No Experienced COVID-19 symptoms?: No Medication History Scheduled Amoxicillin/Potassium Clav 875-125* (Augmentin 875-125 Tablet*), 1 TAB ORAL TWICE A DAY, (Reported) Aspirin (Aspirin EC), 81 MG ORAL DAILY, (Reported) Aspirin Ec* (Aspirin Ec*), 81 MG PO DAILY, (Reported) Aspirin* (Aspir-Low*), 81 MG ORAL BEDTIME, (Reported) Atorvastatin Calcium* (Lipitor*), 20 MG ORAL BEDTIME Carvedilol* (Carvedilol*), 6.25 MG PO BID, (Reported) Carvedilol* (Carvedilol*), 6.25 MG ORAL BID, (Reported) Clopidogrel* (Clopidogrel*), Unknown Dose ORAL DAILY, (Reported) Dextran 70/Hypromellose (Artificial Tears Eye Drops*), 1 DROP BOTH EYES QID Doxycycline Monohydrate* (Doxycycline Monohydrate*), 100 MG ORAL TWICE A DAY, (Reported) Gabapentin* (Neurontin*), 600 MG ORAL BID, (Reported) Glipizide* (Glipizide*), Unknown Dose ORAL BIDAC, (Reported) Isosorbide Mononitrate (Isosorbide Mononitrate Er), 30 MG PO DAILY, (Reported) Metformin Hcl* (Metformin Hcl*), 1,000 MG PO BID, (Reported) Nortriptyline Hcl* (Pamelor*), Unknown Dose ORAL DAILY, (Reported) Pantoprazole* (Pantoprazole*), 40 MG ORAL DAILY, (Reported) Phenytoin Sodium Extended* (Dilantin*), 300 MG PO HS, (Reported) Phenytoin Sodium Extended* (Dilantin*), 200 MG ORAL TWICE A DAY Spironolactone* (Aldactone*), 25 MG PO DAILY, (Reported) Spironolactone* (Spironolactone*), 25 MG ORAL DAILY, (Reported) Terazosin HCl (Terazosin HCl), 5 MG PO BEDTIME, (Reported) Trimethoprim/Sulfamethoxazole (Bactrim Ds Tablet), 1 TAB ORAL TWICE A DAY, (Reported) [Cyproheptadine Hcl], 4 MG ORAL THREE TIMES A DAY Scheduled PRN Hydrocodone Bit/Acetaminophen 5-325* ([place] 5-325*), 1 TAB ORAL Q6H PRN for For Pain Ibuprofen (Motrin), 600 MG ORAL Q8H PRN for For Pain Ibuprofen* (Motrin*), 600 MG ORAL Q8H PRN for FOR PAIN, (Reported) Zolpidem Tartrate* (Zolpidem Tartrate*), 5 MG ORAL BEDTIME PRN for Insomnia, (Reported) Miscellaneous Medications Heparin Sod/Dextrose* (Heparin-D5w 25,000 Unit/500 Ml*), 22 UNIT IV, (Reported) Patient History History Provided By: Patient, Medical Record, PMD Healthcare decision maker Resuscitation status Advanced Directive on File Past Medical/Surgical History Past Medical/Surgical History: (1) Cellulitis (2) Diabetic foot ulcer (3) Osteomyelitis of ankle or foot, acute (4) Hyperkalemia (5) Renal insufficiency (6) Uncontrolled diabetes mellitus (7) Epileptic seizure, generalized (8) Diabetes mellitus (9) CAD (coronary artery disease) (10) Cardiomyopathy (11) PVD (peripheral vascular disease) (12) History of CVA (cerebrovascular accident) Review of Systems Review of Symptoms General ROS: no weight loss or fever Psychological ROS: no depression or mood changes, no memory loss Ophthalmic ROS: no visual changes or eye irritation ENT ROS: no nasal congestion, hearing loss, dizziness Allergy and Immunology ROS: no allergic symptoms or urticaria Hematological and Lymphatic ROS: no swollen glands, unusual bleeding or bruising Endocrine ROS: no polyuria, polydipsia, weight changes, temperature intolerance Respiratory ROS: no cough, shortness of breath, or wheezing Cardiovascular ROS: no chest pain or dyspnea on exertion Gastrointestinal ROS: denies abdominal pain, bright red blood in stool. Musculoskeletal ROS: no myalgias or arthralgias Neurological ROS: no TIA or stroke symptoms Dermatological ROS: no new or changing skin lesions, rashes or pruritis Physical Exam Physical Exam General appearance: alert, cooperative, no distress, appears stated age Head: Normocephalic, without obvious abnormality, atraumatic Eyes: conjunctivae/corneas clear. PERRL, EOM's intact. Fundi benign Throat: Lips, mucosa, and tongue normal. Teeth and gums normal Neck: supple, symmetrical, trachea midline, no adenopathy, thyroid: not enlarged, symmetric, no tenderness/mass/nodules, no carotid bruit and no JVD Lungs: clear to auscultation bilaterally Heart: regular rate and rhythm, S1, S2 normal, no murmur, click, rub or gallop Abdomen: soft, non-tender. Bowel sounds normal. No masses, no organomegaly Extremities: extremities left foot tma with edema and 1cm dehiscence of flap Pulses: 2+ and symmetric Skin: Skin color, texture, turgor normal. No rashes or lesions Neurologic: Grossly normal Last 24 Hour Vital Signs Date Time Temp Pulse Resp B/P (MAP) Pulse Ox O2 Delivery O2 Flow Rate FiO2 09/19/20 16:00 97.5 77 18 138/78 (98) 96 09/19/20 12:00 98 09/19/20 12:00 97.3 85 20 148/87 (107) 93 09/19/20 09:17 97.4 09/19/20 09:00 Room Air 09/19/20 08:47 159/95 09/19/20 08:46 91 159/95 09/19/20 08:00 91 09/19/20 08:00 97.4 91 18 159/95 (116) 95 09/19/20 04:00 104 09/19/20 04:00 98.0 90 18 141/89 (106) 95 09/19/20 00:30 97.3 95 18 141/90 (107) 95 09/19/20 00:30 Room Air 09/19/20 00:20 98.6 83 16 149/86 100 Room Air 09/18/20 23:45 98.4 81 15 145/77 99 Room Air 09/18/20 22:49 98.6 09/18/20 22:00 98.6 83 16 149/86 100 Room Air 09/18/20 19:47 98.6 09/18/20 19:45 98.6 88 16 154/89 98 Room Air 09/18/20 18:49 16 122/82 100 Room Air 09/18/20 18:16 98.6 78 18 164/80 (108) 98 Room Air Intake and Output 09/18/20 09/19/20 19:00 07:00 Intake Total 300 ml Output Total 1100 ml Balance -800 ml Intake Oral 300 ml Output Urine Total 1100 ml # Voids 6 Laboratory Tests Test 09/18/20 18:45 09/18/20 21:20 09/19/20 06:40 White Blood Count 6.0 K/UL (4.8-10.8) 7.6 K/UL (4.8-10.8) Red Blood Count 4.21 M/UL (4.70-6.10) L 3.99 M/UL (4.70-6.10) L Hemoglobin 11.7 G/DL (14.2-18.0) L 11.2 G/DL (14.2-18.0) L Hematocrit 37.8 % (42.0-52.0) L 35.4 % (42.0-52.0) L Mean Corpuscular Volume 90 FL (80-99) 89 FL (80-99) Mean Corpuscular Hemoglobin 27.7 PG (27.0-31.0) 28.2 PG (27.0-31.0) Mean Corpuscular Hemoglobin Concent 30.8 G/DL (32.0-36.0) L 31.8 G/DL (32.0-36.0) L Red Cell Distribution Width 13.9 % (11.6-14.8) 13.8 % (11.6-14.8) Platelet Count 213 K/UL (150-450) 203 K/UL (150-450) Mean Platelet Volume 7.7 FL (6.5-10.1) 7.6 FL (6.5-10.1) Neutrophils (%) (Auto) 68.9 % (45.0-75.0) 69.9 % (45.0-75.0) Lymphocytes (%) (Auto) 23.3 % (20.0-45.0) 21.7 % (20.0-45.0) Monocytes (%) (Auto) 6.1 % (1.0-10.0) 6.8 % (1.0-10.0) Eosinophils (%) (Auto) 1.0 % (0.0-3.0) 1.2 % (0.0-3.0) Basophils (%) (Auto) 0.7 % (0.0-2.0) 0.5 % (0.0-2.0) Prothrombin Time 10.3 SEC (9.30-11.50) Prothromb Time International Ratio 0.9 (0.9-1.1) Activated Partial Thromboplast Time 24 SEC (23-33) Sodium Level 135 MMOL/L (136-145) L 138 MMOL/L (136-145) Potassium Level 5.7 MMOL/L (3.5-5.1) H 5.0 MMOL/L (3.5-5.1) Chloride Level 100 MMOL/L (98-107) 104 MMOL/L (98-107) Carbon Dioxide Level 30 MMOL/L (21-32) 29 MMOL/L (21-32) Anion Gap 5 mmol/L (5-15) 5 mmol/L (5-15) Blood Urea Nitrogen 25 mg/dL (7-18) H 19 mg/dL (7-18) H Creatinine 1.6 MG/DL (0.55-1.30) H 1.2 MG/DL (0.55-1.30) Estimat Glomerular Filtration Rate 52.0 mL/min (>60) > 60 mL/min (>60) Glucose Level 494 MG/DL (74-106) H 302 MG/DL (74-106) #H Calcium Level 9.4 MG/DL (8.5-10.1) 9.0 MG/DL (8.5-10.1) Magnesium Level 2.0 MG/DL (1.8-2.4) 1.8 MG/DL (1.8-2.4) Total Bilirubin 0.3 MG/DL (0.2-1.0) 0.3 MG/DL (0.2-1.0) Aspartate Amino Transf (AST/SGOT) 12 U/L (15-37) L 13 U/L (15-37) L Alanine Aminotransferase (ALT/SGPT) 25 U/L (12-78) 23 U/L (12-78) Alkaline Phosphatase 144 U/L (46-116) H 127 U/L (46-116) H Total Protein 7.1 G/DL (6.4-8.2) 6.7 G/DL (6.4-8.2) Albumin 3.4 G/DL (3.4-5.0) 3.1 G/DL (3.4-5.0) L Globulin 3.7 g/dL 3.6 g/dL Albumin/Globulin Ratio 0.9 (1.0-2.7) L 0.9 (1.0-2.7) L Acetone Level Negative (NEGATIVE) Urine Color Pale yellow Urine Appearance Clear Urine pH 6.5 (4.5-8.0) Urine Specific [place] 1.005 (1.005-1.035) Urine Protein 1+ (NEGATIVE) H Urine Glucose (UA) 4+ (NEGATIVE) H Urine Ketones Negative (NEGATIVE) Urine Blood Negative (NEGATIVE) Urine Nitrite Negative (NEGATIVE) Urine Bilirubin Negative (NEGATIVE) Urine Urobilinogen Normal MG/DL (0.0-1.0) Urine Leukocyte Esterase Negative (NEGATIVE) Urine RBC 0 /HPF (0 - 0) Urine WBC 0-2 /HPF (0 - 0) Urine Squamous Epithelial Cells None /LPF (NONE/OCC) Urine Bacteria Occasional /HPF (NONE) Hemoglobin A1c 12.2 % (4.3-6.0) H Phosphorus Level 3.5 MG/DL (2.5-4.9) Microbiology Date/Time Source Procedure Growth Status 09/18/20 22:55 Rectum Received Height (Feet): 6 Height (Inches): 0.00 Weight (Pounds): 150 Medications Current Medications Medications (Trade) Dose Ordered Sig/Mell Route PRN Reason Start Time Stop Time Status Last Admin Dose Admin Acetaminophen/ Hydrocodone Bitart ([place] 5/325) 1 tab Q6H PRN ORAL Mild Pain (Pain Scale 1-3) 09/19/20 01:30 09/26/20 01:29 Aspirin (Ecotrin) 81 mg DAILY ORAL 09/19/20 09:00 11/03/20 08:59 09/19/20 08:47 Atorvastatin Calcium (Lipitor) 20 mg BEDTIME ORAL 09/19/20 21:00 12/18/20 20:59 Carvedilol (Coreg) 6.25 mg BID ORAL 09/19/20 09:00 10/19/20 08:59 09/19/20 08:46 Ceftriaxone Sodium 2 gm/ Dextrose 55 ml @ 110 mls/hr Q24H IVPB 09/19/20 13:00 09/26/20 12:59 09/19/20 13:15 Clonidine HCl (Catapres Tab) 0.1 mg Q4H PRN ORAL SBP>160MMHG 09/19/20 01:45 12/18/20 01:44 Clopidogrel Bisulfate (Plavix) 75 mg DAILY ORAL 09/19/20 09:00 10/19/20 08:59 09/19/20 08:46 Dextrose (Dextrose 50%) 25 ml Q30M PRN IV Hypoglycemia 09/19/20 01:30 12/18/20 01:29 Dextrose (Dextrose 50%) 50 ml Q30M PRN IV Hypoglycemia 09/19/20 01:30 12/18/20 01:29 Gabapentin (Neurontin) 600 mg BID ORAL 09/19/20 09:00 10/19/20 08:59 09/19/20 08:47 Gadobutrol (Gadavist) 7.5 mmol NOW PRN IV Radiology Procedure 09/19/20 10:15 09/23/20 10:14 Hydromorphone HCl (Dilaudid) 1 mg Q6H PRN IVP Moderate Pain (Pain Scale 4-6) 09/19/20 01:30 09/26/20 01:29 Hydromorphone HCl (Dilaudid) 2 mg Q6H PRN IVP Severe Pain (Pain Scale 7-10) 09/19/20 01:30 09/26/20 01:29 09/19/20 16:11 Insulin Aspart (NovoLOG) BEFORE MEALS AND HS SUBQ 09/19/20 06:30 12/18/20 06:29 09/19/20 16:12 Isosorbide Mononitrate (Imdur) 30 mg DAILY ORAL 09/19/20 09:00 10/19/20 08:59 09/19/20 08:47 Ondansetron HCl (Zofran) 4 mg Q4H PRN IVP Nausea & Vomiting 09/19/20 01:30 10/19/20 01:29 Pantoprazole (Protonix) 40 mg DAILY ORAL 09/19/20 09:00 10/19/20 08:59 09/19/20 08:46 Phenytoin (Dilantin) 200 mg Q12HR ORAL 09/19/20 21:00 11/03/20 08:59 Sodium Chloride 1,000 ml @ 75 mls/hr [id number] IV 09/19/20 02:00 10/19/20 01:59 09/19/20 16:11 Terazosin HCl (Hytrin) 5 mg BEDTIME ORAL 09/19/20 21:00 10/19/20 20:59 Vancomycin HCl 250 ml @ 166.667 mls/hr Q24H IVPB 09/19/20 03:00 09/24/20 02:59 09/19/20 03:17 Vancomycin HCl (Vanco pharmacy to dose) 1 ea DAILY PRN MISC Per rx protocol 09/19/20 01:30 10/19/20 01:29 Zolpidem Tartrate (Ambien) 5 mg BEDTIME PRN ORAL Insomnia 09/19/20 01:45 09/26/20 01:44 Assessment/Plan Problem List: (1) Hyperkalemia ICD Codes: E87.5 - Hyperkalemia SNOMED: 53708524, 265050505 (2) Cellulitis Assessment & Plan: 70-year-old male presented with left foot cellulitis. Prior TMA. Lateral aspect a 1 cm dehiscence identified opening no purulent drainage some serous drainage. Local wound care provided. Edema identified. Vascular imaging pending. Podiatry eval. Okay for diet. Continue antibiotics. No acute surgical invention. No abscess identified. Plainly cellulitis. Will follow with recommendations thank you for let me participate in patient's care Bilaterally, grayscale and duplex images demonstrate no evidence of intraluminal thrombus. Normal phasic Doppler waveforms, demonstrating normal augmentation response and no evidence of valvular insufficiency. Greater saphenous vein(s) and tibial veins are patent. Normal compressibility. Impression: Negative for evidence of lower extremity deep venous thrombosis bilaterally ICD Codes: L03.90 - Cellulitis, unspecified SNOMED: 468103521 (3) Renal insufficiency ICD Codes: N28.9 - Disorder of kidney and ureter, unspecified SNOMED: 487074736, 401709151 (4) Diabetic foot ulcer ICD Codes: E11.621 - Type 2 diabetes mellitus with foot ulcer; L97.509 - Non- pressure chronic ulcer of other part of unspecified foot with unspecified severity SNOMED: 55916230, 559829193 (5) Uncontrolled diabetes mellitus ICD Codes: E11.65 - Type 2 diabetes mellitus with hyperglycemia SNOMED: 04467681, 734886876 Qualifiers: Qualified Codes: E13.65 - Other specified diabetes mellitus with hypergly cemia (6) Osteomyelitis of ankle or foot, acute ICD Codes: M86.179 - Other acute osteomyelitis, unspecified ankle and foot SNOMED: 876029341 (7) Epileptic seizure, generalized ICD Codes: G40.909 - Epilepsy, unspecified, not intractable, without status epilepticus SNOMED: 44981414 (8) Diabetes mellitus ICD Codes: E11.9 - Type 2 diabetes mellitus without complications SNOMED: 61831506 (9) CAD (coronary artery disease) ICD Codes: I25.10 - Atherosclerotic heart disease of [place] coronary artery without angina pectoris SNOMED: 00461568 (10) Cardiomyopathy ICD Codes: I42.9 - Cardiomyopathy, unspecified SNOMED: 70560249 (11) PVD (peripheral vascular disease) ICD Codes: I73.9 - Peripheral vascular disease, unspecified SNOMED: 080908627 (12) History of CVA (cerebrovascular accident) ICD Codes: Z86.73 - Personal history of transient ischemic attack (TIA), and cerebral infarction without residual deficits SNOMED: 618156938 Josafat Narvaez Sep 19, 2020 16:58
--- NOTE | 2020-09-19 17:42 | Cardiology Report ---
APPROVED REPORT EKG Measurement Heart [id number] <Conclusion> Normal sinus rhythm Cannot rule out Inferior infarct, age undetermined Abnormal ECG
--- NOTE | 2020-09-19 18:54 | Diagnostic Imaging Report ---
Indication: Left foot pain Technique: 3 views left foot Comparison: 05/08/2020 Findings: Again demonstrated is prior transmetatarsal amputation. Amputation margins appear clean. Wire is seen adjacent to the fifth metatarsal stump. Or osteolytic lesion demonstrated. No acute fracture. No dislocation. No soft tissue gas. No significant interim change Impression: No acute process Postsurgical changes, as described
--- NOTE | 2020-09-19 19:28 | NUR ---
NURSE HAND-OFF REPORT: Important Events on Shift:[Patient refused MRI today, try again tomorrow. Dilaudid Q6] Patient Status: [Full code] Diet: [CCHO medium] Pending Orders: [] Pending Results/Labs:[] Pending MD notification:[] Latest Vital Signs: Temperature 97.3 , Pulse 78 , B/P 138 /78 , Respiratory Rate 18 , O2 SAT 96 , Room Air, O2 Flow Rate . Vital Sign Comment: [] EKG Rhythm: Sinus Rhythm Rhythm change?: N MD Notified?: - MD Response: Latest Manzanares Fall Score: 60 Fall Risk: High Risk Safety Measures: Call light Within Reach, Bed Alarm Zone 2, Side Rails Side Rails x3, Bed position Low and Locked. Fall Precautions: Yellow Socks Yellow Gown Patient Fall Education Report given to [ELIESER Booth].
--- NOTE | 2020-09-19 19:30 | NUR ---
NURSE NOTES: The patient is alert and oriented x3 and seem to be calm and cooperative with his care and doesn't appear to be in any acute distress at this time.The patient has an IV line in the Left AC 18G and a Left FA 22g , both IV lines are patent and asymptomatic. The bed in lowest position, siderails are paddled and call light within easy reach. will continue to monitor as indicated
[2020-09-19 20:00] VITALS: BP 129/77
[2020-09-19] MEDS: Phenytoin 100mg cap ORAL SCH (20:58)
[2020-09-19] MEDS: Zolpidem 5mg tab ORAL PRN (20:58)
[2020-09-19] MEDS: Atorvastatin 20mg tab ORAL SCH (20:58)
[2020-09-20] VITALS: BP 133/74
[2020-09-20] MEDS: Vancomycin 1.25gm Premix q24h IVPB SCH (03:52)
[2020-09-20 04:00] VITALS: BP 113/53
[2020-09-20] MEDS: NovoLOG Insulin Flexpen SUBQ SCH ×4 (06:49→20:41)
[2020-09-20 07:15] LABS: BASOPHILS % (AUTO) 0.5 % (0.0-2.0); HEMATOCRIT 36.7 % (42.0-52.0); HEMOGLOBIN 11.6 G/DL (14.2-18.0); LYMPHOCYTES % (AUTO) 24.6 % (20.0-45.0); MEAN CORPUSCULAR VOLUME 86 FL (80-99); NEUTROPHILS % (AUTO) 65.9 % (45.0-75.0); PLATELET COUNT 186 K/UL (150-450); RED BLOOD COUNT 4.28 M/UL (4.70-6.10); RED CELL DISTRIBUTION WIDTH 13.3 % (11.6-14.8); WHITE BLOOD COUNT 7.2 K/UL (4.8-10.8)
[2020-09-20 07:32] LABS: ALANINE AMINOTRANSFERASE 20 U/L (12-78); ALBUMIN 3.2 G/DL (3.4-5.0); ALBUMIN/GLOBULIN RATIO 0.8 (1.0-2.7); ALKALINE PHOSPHATASE 133 U/L (46-116); ANION GAP 10 mmol/L (5-15); ASPARTATE AMINO TRANSFERASE 13 U/L (15-37); BILIRUBIN,TOTAL 0.4 MG/DL (0.2-1.0); BLOOD UREA NITROGEN 14 mg/dL (7-18); CALCIUM 9.1 MG/DL (8.5-10.1); CARBON DIOXIDE 26 MMOL/L (21-32); CHLORIDE 100 MMOL/L (98-107); PHOSPHORUS 3.3 MG/DL (2.5-4.9); POTASSIUM 4.4 MMOL/L (3.5-5.1); SODIUM 136 MMOL/L (136-145)
--- NOTE | 2020-09-20 07:39 | NUR ---
NURSE HAND-OFF REPORT: Important Events on Shift:Alert and stable Patient Status: Diet: Pending Orders: Pending Results/Labs: Pending MD notification: Latest Vital Signs: Temperature 97.9 , Pulse 93 , B/P 113 /53 , Respiratory Rate 18 , O2 SAT 99 , Room Air, O2 Flow Rate . Vital Sign Comment: EKG Rhythm: Sinus Rhythm Rhythm change?: N MD Notified?: - MD Response: Latest Manzanares Fall Score: 60 Fall Risk: High Risk Safety Measures: Call light Within Reach, Bed Alarm Zone 2, Side Rails Side Rails x3, Bed position Low and Locked. Fall Precautions: Yellow Socks Yellow Gown Patient Fall Education Report given to .
--- NOTE | 2020-09-20 07:49 | NUR ---
NURSE NOTES: Received patient in bed awake. No SOB or acute distress. IV lines intact and patent. Wound dressing intact. Complaining of left foot pain 7/10, on pain management. HOB elevated. Bed locked in low position. Call light within reach. Will continue plan of care.
[2020-09-20 08:00] VITALS: BP 141/89
[2020-09-20] MEDS ORDERED: LORazepam Inj 2mg/ml 1ml IV PRN (08:30)
--- NOTE | 2020-09-20 09:03 | Nephrology Progress Note ---
Assessment/Plan Plan #left foot osteo #r/o sepsis #hyponatremia #hyperkalemia #JASMIN #DM #HTN #HLD - admit inpatient - IVF - IV antibiotics - pain control - ID eval - podiatry eval - surgery eval - resume home meds - monitor BG - hold metformin - foot MRI -time spent 65 min Subjective ROS Limited/Unobtainable: No Constitutional: Reports: weakness Subjective Impression: Extremely limited borderline nondiagnostic exam for reasons described above Evidence of prior transmetatarsal amputation, also previously described Equivocal focal high STIR signal within the fifth metatarsal stump, could represent a small focus of osteomyelitis but it is not corroborated on the T2-weighted images. This is also demonstrated on the previous exam. If there is high clinical suspicion, bone scan may be useful to better characterize Extensive soft tissue edema. 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 Objective Objective Last 24 Hour Vital Signs Date Time Temp Pulse Resp B/P (MAP) Pulse Ox O2 Delivery O2 Flow Rate FiO2 09/20/20 08:00 97.5 106 18 141/89 (106) 91 09/20/20 04:00 93 09/20/20 04:00 97.9 81 18 113/53 (73) 99 09/20/20 01:34 94 09/20/20 00:00 97.2 76 20 133/74 (93) 95 09/19/20 21:00 Room Air 09/19/20 20:00 97.8 74 18 129/77 (94) 94 09/19/20 20:00 73 09/19/20 17:54 78 138/78 09/19/20 16:41 97.3 09/19/20 16:00 97.5 77 18 138/78 (98) 96 09/19/20 16:00 78 09/19/20 12:00 98 09/19/20 12:00 97.3 85 20 148/87 (107) 93 09/19/20 09:17 97.4 Intake and Output 09/19/20 09/20/20 19:00 07:00 Intake Total 435 ml 1065 ml Output Total 650 ml 1300 ml Balance -215 ml -235 ml Intake Oral 360 ml 240 ml IV Total 75 ml 825 ml Output Urine Total 650 ml 1300 ml Laboratory Tests 09/20/20 06:44: White Blood Count 7.2, Red Blood Count 4.28L, Hemoglobin 11.6L, Hematocrit 36.7L , Mean Corpuscular Volume 86, Mean Corpuscular Hemoglobin 27.2, Mean Corpuscular Hemoglobin Concent 31.7L, Red Cell Distribution Width 13.3, Platelet Count 186, Mean Platelet Volume 7.7, Neutrophils (%) (Auto) 65.9, Lymphocytes (%) (Auto) 24.6, Monocytes (%) (Auto) 7.0, Eosinophils (%) (Auto) 2.0, Basophils (%) (Auto) 0.5, Sodium Level 136, Potassium Level 4.4, Chloride Level 100, Carbon Dioxide Level 26, Anion Gap 10, Blood Urea Nitrogen 14, Creatinine 1.0, Estimat Glom erular Filtration Rate > 60, Glucose Level 264H, Calcium Level 9.1, Phosphorus Level 3.3, Magnesium Level 1.7L, Total Bilirubin 0.4, Aspartate Amino Transf (AST/SGOT) 13L, Alanine Aminotransferase (ALT/SGPT) 20, Alkaline Phosphatase 133H, Total Protein 7.0, Albumin 3.2L, Globulin 3.8, Albumin/Globulin Ratio 0.8L Height (Feet): 6 Height (Inches): 0.00 Weight (Pounds): 150 Objective General: Patient is laying in bed with normal work of breathing on room air HEENT: Head exam reveals that the head is normocephalic, atraumatic without deformity or unusual swelling. Pupils are PERRLA. CHEST AND LUNGS: Reveals clear, normal, symmetrical breath sounds with no adventitious sounds. CARDIOVASCULAR: Reveals normal S1, S2 without murmurs, rubs, or clicks. ABDOMEN: Soft with no tenderness or organomegaly. RECTAL: Deferred. MUSCULOSKELETAL: There is no tenderness to palpation. Range of motion is normal. SKIN: All left foot toes amputated. Small chronic wound on the lateral aspect of left foot without erythema or induration. NEUROLOGICAL: Alert and oriented x3 , nonfocal Babs Najera M.D. Sep 20, 2020 09:02
[2020-09-20] MEDS: Phenytoin 100mg cap ORAL SCH ×2 (09:08→20:22)
[2020-09-20] MEDS: Imdur 30mg tab ORAL SCH (09:08)
[2020-09-20] MEDS: Aspirin EC 81mg tab ORAL SCH (09:09)
[2020-09-20] MEDS: Carvedilol 6.25mg Tab ORAL SCH ×2 (09:09→17:43)
--- NOTE | 2020-09-20 11:09 | Consultation ---
History of Present Illness General Date patient seen: Sep 20, 2020 Time patient seen: 08:30 Chief Complaint: Pain left foot. Reason for Consultation: Pain Left foot. Present Illness HPI Pt seen bedside s/p L TMA with lateral midfoot ulcer. Pt rates moderate pain to L foot. Denies any acute SOI or recent constitutional symptoms. Allergies: Coded Allergies: No Known Allergies (Unverified , 05/07/14) Medication History Scheduled Amoxicillin/Potassium Clav 875-125* (Augmentin 875-125 Tablet*), 1 TAB ORAL TWICE A DAY, (Reported) Aspirin (Aspirin EC), 81 MG ORAL DAILY, (Reported) Aspirin Ec* (Aspirin Ec*), 81 MG PO DAILY, (Reported) Aspirin* (Aspir-Low*), 81 MG ORAL BEDTIME, (Reported) Atorvastatin Calcium* (Lipitor*), 20 MG ORAL BEDTIME Carvedilol* (Carvedilol*), 6.25 MG PO BID, (Reported) Carvedilol* (Carvedilol*), 6.25 MG ORAL BID, (Reported) Clopidogrel* (Clopidogrel*), Unknown Dose ORAL DAILY, (Reported) Dextran 70/Hypromellose (Artificial Tears Eye Drops*), 1 DROP BOTH EYES QID Doxycycline Monohydrate* (Doxycycline Monohydrate*), 100 MG ORAL TWICE A DAY, (Reported) Gabapentin* (Neurontin*), 600 MG ORAL BID, (Reported) Glipizide* (Glipizide*), Unknown Dose ORAL BIDAC, (Reported) Isosorbide Mononitrate (Isosorbide Mononitrate Er), 30 MG PO DAILY, (Reported) Metformin Hcl* (Metformin Hcl*), 1,000 MG PO BID, (Reported) Nortriptyline Hcl* (Pamelor*), Unknown Dose ORAL DAILY, (Reported) Pantoprazole* (Pantoprazole*), 40 MG ORAL DAILY, (Reported) Phenytoin Sodium Extended* (Dilantin*), 300 MG PO HS, (Reported) Phenytoin Sodium Extended* (Dilantin*), 200 MG ORAL TWICE A DAY Spironolactone* (Aldactone*), 25 MG PO DAILY, (Reported) Spironolactone* (Spironolactone*), 25 MG ORAL DAILY, (Reported) Terazosin HCl (Terazosin HCl), 5 MG PO BEDTIME, (Reported) Trimethoprim/Sulfamethoxazole (Bactrim Ds Tablet), 1 TAB ORAL TWICE A DAY, (Reported) [Cyproheptadine Hcl], 4 MG ORAL THREE TIMES A DAY Scheduled PRN Hydrocodone Bit/Acetaminophen 5-325* ([place] 5-325*), 1 TAB ORAL Q6H PRN for For Pain Ibuprofen (Motrin), 600 MG ORAL Q8H PRN for For Pain Ibuprofen* (Motrin*), 600 MG ORAL Q8H PRN for FOR PAIN, (Reported) Zolpidem Tartrate* (Zolpidem Tartrate*), 5 MG ORAL BEDTIME PRN for Insomnia, (Reported) Miscellaneous Medications Heparin Sod/Dextrose* (Heparin-D5w 25,000 Unit/500 Ml*), 22 UNIT IV, (Reported) Patient History Healthcare decision maker Resuscitation status Advanced Directive on File Review of Systems All Other Systems: negative except mentioned in HPI Physical Exam Physical Exam Narrative Focused LLE Exam: Derm: L foot midfoot ulcer noted with overlying eschar. negative purulent drainage. Minimal erythema and edema. TMA incision well healed. Vasc: +1/4 DP/PT pulses. Neuro: SILT intact. MSK: MS/ROM deferred secondary to pain. (+) POP DFU. Last 24 Hour Vital Signs Date Time Temp Pulse Resp B/P (MAP) Pulse Ox O2 Delivery O2 Flow Rate FiO2 09/20/20 09:09 106 141/89 09/20/20 09:08 141/89 09/20/20 09:00 Room Air 09/20/20 08:00 101 09/20/20 08:00 97.5 106 18 141/89 (106) 94 09/20/20 04:00 93 09/20/20 04:00 97.9 81 18 113/53 (73) 99 09/20/20 01:34 94 09/20/20 00:00 97.2 76 20 133/74 (93) 95 09/19/20 21:00 Room Air 09/19/20 20:00 97.8 74 18 129/77 (94) 94 09/19/20 20:00 73 09/19/20 17:54 78 138/78 09/19/20 16:41 97.3 09/19/20 16:00 97.5 77 18 138/78 (98) 96 09/19/20 16:00 78 09/19/20 12:00 98 09/19/20 12:00 97.3 85 20 148/87 (107) 93 Intake and Output 09/19/20 09/20/20 19:00 07:00 Intake Total 435 ml 1065 ml Output Total 650 ml 1300 ml Balance -215 ml -235 ml Intake Oral 360 ml 240 ml IV Total 75 ml 825 ml Output Urine Total 650 ml 1300 ml Laboratory Tests Test 09/20/20 06:44 White Blood Count 7.2 K/UL (4.8-10.8) Red Blood Count 4.28 M/UL (4.70-6.10) L Hemoglobin 11.6 G/DL (14.2-18.0) L Hematocrit 36.7 % (42.0-52.0) L Mean Corpuscular Volume 86 FL (80-99) Mean Corpuscular Hemoglobin 27.2 PG (27.0-31.0) Mean Corpuscular Hemoglobin Concent 31.7 G/DL (32.0-36.0) L Red Cell Distribution Width 13.3 % (11.6-14.8) Platelet Count 186 K/UL (150-450) Mean Platelet Volume 7.7 FL (6.5-10.1) Neutrophils (%) (Auto) 65.9 % (45.0-75.0) Lymphocytes (%) (Auto) 24.6 % (20.0-45.0) Monocytes (%) (Auto) 7.0 % (1.0-10.0) Eosinophils (%) (Auto) 2.0 % (0.0-3.0) Basophils (%) (Auto) 0.5 % (0.0-2.0) Sodium Level 136 MMOL/L (136-145) Potassium Level 4.4 MMOL/L (3.5-5.1) Chloride Level 100 MMOL/L (98-107) Carbon Dioxide Level 26 MMOL/L (21-32) Anion Gap 10 mmol/L (5-15) Blood Urea Nitrogen 14 mg/dL (7-18) Creatinine 1.0 MG/DL (0.55-1.30) Estimat Glomerular Filtration Rate > 60 mL/min (>60) Glucose Level 264 MG/DL (74-106) H Calcium Level 9.1 MG/DL (8.5-10.1) Phosphorus Level 3.3 MG/DL (2.5-4.9) Magnesium Level 1.7 MG/DL (1.8-2.4) L Total Bilirubin 0.4 MG/DL (0.2-1.0) Aspartate Amino Transf (AST/SGOT) 13 U/L (15-37) L Alanine Aminotransferase (ALT/SGPT) 20 U/L (12-78) Alkaline Phosphatase 133 U/L (46-116) H Total Protein 7.0 G/DL (6.4-8.2) Albumin 3.2 G/DL (3.4-5.0) L Globulin 3.8 g/dL Albumin/Globulin Ratio 0.8 (1.0-2.7) L Height (Feet): 6 Height (Inches): 0.00 Weight (Pounds): 150 Medications Current Medications Medications (Trade) Dose Ordered Sig/Mell Route PRN Reason Start Time Stop Time Status Last Admin Dose Admin Acetaminophen/ Hydrocodone Bitart ([place] 5/325) 1 tab Q6H PRN ORAL Mild Pain (Pain Scale 1-3) 09/19/20 01:30 09/26/20 01:29 Aspirin (Ecotrin) 81 mg DAILY ORAL 09/19/20 09:00 11/03/20 08:59 09/20/20 09:09 Atorvastatin Calcium (Lipitor) 20 mg BEDTIME ORAL 09/19/20 21:00 12/18/20 20:59 09/19/20 20:58 Carvedilol (Coreg) 6.25 mg BID ORAL 09/19/20 09:00 10/19/20 08:59 09/20/20 09:09 Ceftriaxone Sodium 2 gm/ Dextrose 55 ml @ 110 mls/hr Q24H IVPB 09/19/20 13:00 09/26/20 12:59 09/19/20 13:15 Clonidine HCl (Catapres Tab) 0.1 mg Q4H PRN ORAL SBP>160MMHG 09/19/20 01:45 12/18/20 01:44 Clopidogrel Bisulfate (Plavix) 75 mg DAILY ORAL 09/19/20 09:00 10/19/20 08:59 09/20/20 09:09 Dextrose (Dextrose 50%) 25 ml Q30M PRN IV Hypoglycemia 09/19/20 01:30 12/18/20 01:29 Dextrose (Dextrose 50%) 50 ml Q30M PRN IV Hypoglycemia 09/19/20 01:30 12/18/20 01:29 Gabapentin (Neurontin) 600 mg BID ORAL 09/19/20 09:00 10/19/20 08:59 09/20/20 09:09 Gadobutrol (Gadavist) 7.5 mmol NOW PRN IV Radiology Procedure 09/19/20 10:15 09/23/20 10:14 Hydromorphone HCl (Dilaudid) 1 mg Q6H PRN IVP Moderate Pain (Pain Scale 4-6) 09/19/20 01:30 09/26/20 01:29 Hydromorphone HCl (Dilaudid) 2 mg Q6H PRN IVP Severe Pain (Pain Scale 7-10) 09/19/20 01:30 09/26/20 01:29 09/20/20 06:03 Insulin Aspart (NovoLOG) BEFORE MEALS AND HS SUBQ 09/19/20 06:30 12/18/20 06:29 09/20/20 06:49 Isosorbide Mononitrate (Imdur) 30 mg DAILY ORAL 09/19/20 09:00 10/19/20 08:59 09/20/20 09:08 Lorazepam (Ativan 2mg/ml 1ml) 1 mg ONCE PRN IV PRIOR TO MRI 09/20/20 08:30 09/20/20 21:00 Magnesium Sulfate 100 ml @ 100 mls/hr Q1H IVPB 09/20/20 09:00 09/20/20 10:59 09/20/20 10:32 Ondansetron HCl (Zofran) 4 mg Q4H PRN IVP Nausea & Vomiting 09/19/20 01:30 10/19/20 01:29 Pantoprazole (Protonix) 40 mg DAILY ORAL 09/19/20 09:00 10/19/20 08:59 09/20/20 09:09 Phenytoin (Dilantin) 200 mg Q12HR ORAL 09/19/20 21:00 11/03/20 08:59 09/20/20 09:08 Sodium Chloride 1,000 ml @ 75 mls/hr [id number] IV 09/19/20 02:00 10/19/20 01:59 09/20/20 04:14 Terazosin HCl (Hytrin) 5 mg BEDTIME ORAL 09/19/20 21:00 10/19/20 20:59 09/19/20 20:58 Vancomycin HCl 250 ml @ 166.667 mls/hr Q24H IVPB 09/19/20 03:00 09/24/20 02:59 09/20/20 03:52 Vancomycin HCl (Vanco pharmacy to dose) 1 ea DAILY PRN MISC Per rx protocol 09/19/20 01:30 10/19/20 01:29 Zolpidem Tartrate (Ambien) 5 mg BEDTIME PRN ORAL Insomnia 09/19/20 01:45 09/26/20 01:44 09/19/20 20:58 Assessment/Plan Assessment/Plan: A: S/p L foot TMA with lateral ulceration. PVD DM P: Pt seen and evaluated. Discuss findings with patient. Labs and chart reviewed. MRI to L foot pending, R/O deep abscess, OM. Rec daily betadine dressing to L foot. Cont IV ABx per ID. Pain meds per primary team. Off-loading measures to B/L L/E No acute surgical intervention required at this time. Podiatry will cont to monitor. Mic Rogers DPM Sep 20, 2020 11:09
--- NOTE | 2020-09-20 11:41 | NUR ---
NURSE HAND-OFF REPORT: Important Events on Shift: Patient Status: alert Diet: ccho med Pending Orders: mri left foot Pending Results/Labs: Pending MD notification: Latest Vital Signs: Temperature 97.5 , Pulse 106 , B/P 141 /89 , Respiratory Rate 18 , O2 SAT 94 , Room Air, O2 Flow Rate . Vital Sign Comment: EKG Rhythm: Sinus Tachycardia Rhythm change?: N MD Notified?: - MD Response: Latest Manz[place] Fall Score: 60 Fall Risk: High Risk Safety Measures: Call light Within Reach, Bed Alarm Zone 2, Side Rails Side Rails x3, Bed position Low and Locked. Fall Precautions: Yellow Socks Yellow Gown Patient Fall Education Report given to Olivia MON.
--- NOTE | 2020-09-20 11:45 | NUR ---
NURSE NOTES: Received report from Nicole/RN, Observed patient up in bed awake. On room air, no SOB or acute distress. IV line intact. HOB elevated. Bed locked in low position. Call light within reach. Encouraged to use call light when needed. Will continue plan of care.
--- NOTE | 2020-09-20 11:59 | Infectious Diseases Prog Note ---
Assessment/Plan Assessment/Plan IMPRESSION: 1. Diabetic foot ulcer, we will try to rule out underlying osteomyelitis. 2. Diabetes mellitus with hyperglycemia. 3. Hyperkalemia. 4. Acute renal failure. 5. Peripheral vascular disease. 6. Lung infiltrates, ? pneumonia RECOMMENDATION: Continue IV vancomycin & ceftriaxone. will follow up MRI of the foot. Rapid COVID19 test Subjective ROS Limited/Unobtainable: No Constitutional: Reports: no symptoms Respiratory: Reports: no symptoms Musculoskeletal: Reports: pain, other - in left foot Allergies: Coded Allergies: No Known Allergies (Unverified , 05/07/14) Objective Last 24 Hour Vital Signs Date Time Temp Pulse Resp B/P (MAP) Pulse Ox O2 Delivery O2 Flow Rate FiO2 09/20/20 09:09 106 141/89 09/20/20 09:08 141/89 09/20/20 09:00 Room Air 09/20/20 08:00 101 09/20/20 08:00 97.5 106 18 141/89 (106) 94 09/20/20 04:00 93 09/20/20 04:00 97.9 81 18 113/53 (73) 99 09/20/20 01:34 94 09/20/20 00:00 97.2 76 20 133/74 (93) 95 09/19/20 21:00 Room Air 09/19/20 20:00 97.8 74 18 129/77 (94) 94 09/19/20 20:00 73 09/19/20 17:54 78 138/78 09/19/20 16:41 97.3 09/19/20 16:00 97.5 77 18 138/78 (98) 96 09/19/20 16:00 78 09/19/20 12:00 98 09/19/20 12:00 97.3 85 20 148/87 (107) 93 Height (Feet): 6 Height (Inches): 0.00 Weight (Pounds): 150 HEENT: mucous membranes moist Respiratory/Chest: lungs clear Cardiovascular: normal rate Abdomen: soft, non tender Extremities: other - left food edema Skin: other - left lateral foot ulcer Neurologic/Psychiatric: alert, responsive Microbiology Date/Time Source Procedure Growth Status 09/18/20 22:55 Rectum Received 09/18/20 19:30 Blood Blood Culture - Preliminary NO GROWTH AFTER 24 HOURS Resulted 09/18/20 19:15 Blood Blood Culture - Preliminary NO GROWTH AFTER 24 HOURS Resulted Laboratory Tests Test 09/20/20 06:44 White Blood Count 7.2 K/UL (4.8-10.8) Red Blood Count 4.28 M/UL (4.70-6.10) L Hemoglobin 11.6 G/DL (14.2-18.0) L Hematocrit 36.7 % (42.0-52.0) L Mean Corpuscular Volume 86 FL (80-99) Mean Corpuscular Hemoglobin 27.2 PG (27.0-31.0) Mean Corpuscular Hemoglobin Concent 31.7 G/DL (32.0-36.0) L Red Cell Distribution Width 13.3 % (11.6-14.8) Platelet Count 186 K/UL (150-450) Mean Platelet Volume 7.7 FL (6.5-10.1) Neutrophils (%) (Auto) 65.9 % (45.0-75.0) Lymphocytes (%) (Auto) 24.6 % (20.0-45.0) Monocytes (%) (Auto) 7.0 % (1.0-10.0) Eosinophils (%) (Auto) 2.0 % (0.0-3.0) Basophils (%) (Auto) 0.5 % (0.0-2.0) Sodium Level 136 MMOL/L (136-145) Potassium Level 4.4 MMOL/L (3.5-5.1) Chloride Level 100 MMOL/L (98-107) Carbon Dioxide Level 26 MMOL/L (21-32) Anion Gap 10 mmol/L (5-15) Blood Urea Nitrogen 14 mg/dL (7-18) Creatinine 1.0 MG/DL (0.55-1.30) Estimat Glomerular Filtration Rate > 60 mL/min (>60) Glucose Level 264 MG/DL (74-106) H Calcium Level 9.1 MG/DL (8.5-10.1) Phosphorus Level 3.3 MG/DL (2.5-4.9) Magnesium Level 1.7 MG/DL (1.8-2.4) L Total Bilirubin 0.4 MG/DL (0.2-1.0) Aspartate Amino Transf (AST/SGOT) 13 U/L (15-37) L Alanine Aminotransferase (ALT/SGPT) 20 U/L (12-78) Alkaline Phosphatase 133 U/L (46-116) H Total Protein 7.0 G/DL (6.4-8.2) Albumin 3.2 G/DL (3.4-5.0) L Globulin 3.8 g/dL Albumin/Globulin Ratio 0.8 (1.0-2.7) L Current Medications Medications (Trade) Dose Ordered Sig/Mell Route PRN Reason Start Time Stop Time Status Last Admin Dose Admin Acetaminophen/ Hydrocodone Bitart ([place] 5/325) 1 tab Q6H PRN ORAL Mild Pain (Pain Scale 1-3) 09/19/20 01:30 09/26/20 01:29 Aspirin (Ecotrin) 81 mg DAILY ORAL 09/19/20 09:00 11/03/20 08:59 09/20/20 09:09 Atorvastatin Calcium (Lipitor) 20 mg BEDTIME ORAL 09/19/20 21:00 12/18/20 20:59 09/19/20 20:58 Carvedilol (Coreg) 6.25 mg BID ORAL 09/19/20 09:00 10/19/20 08:59 09/20/20 09:09 Ceftriaxone Sodium 2 gm/ Dextrose 55 ml @ 110 mls/hr Q24H IVPB 09/19/20 13:00 09/26/20 12:59 09/19/20 13:15 Clonidine HCl (Catapres Tab) 0.1 mg Q4H PRN ORAL SBP>160MMHG 09/19/20 01:45 12/18/20 01:44 Clopidogrel Bisulfate (Plavix) 75 mg DAILY ORAL 09/19/20 09:00 10/19/20 08:59 09/20/20 09:09 Dextrose (Dextrose 50%) 25 ml Q30M PRN IV Hypoglycemia 09/19/20 01:30 12/18/20 01:29 Dextrose (Dextrose 50%) 50 ml Q30M PRN IV Hypoglycemia 09/19/20 01:30 12/18/20 01:29 Gabapentin (Neurontin) 600 mg BID ORAL 09/19/20 09:00 10/19/20 08:59 09/20/20 09:09 Gadobutrol (Gadavist) 7.5 mmol NOW PRN IV Radiology Procedure 09/19/20 10:15 09/23/20 10:14 Hydromorphone HCl (Dilaudid) 1 mg Q6H PRN IVP Moderate Pain (Pain Scale 4-6) 09/19/20 01:30 09/26/20 01:29 Hydromorphone HCl (Dilaudid) 2 mg Q6H PRN IVP Severe Pain (Pain Scale 7-10) 09/19/20 01:30 09/26/20 01:29 09/20/20 06:03 Insulin Aspart (NovoLOG) BEFORE MEALS AND HS SUBQ 09/19/20 06:30 12/18/20 06:29 09/20/20 06:49 Isosorbide Mononitrate (Imdur) 30 mg DAILY ORAL 09/19/20 09:00 10/19/20 08:59 09/20/20 09:08 Lorazepam (Ativan 2mg/ml 1ml) 1 mg ONCE PRN IV PRIOR TO MRI 09/20/20 08:30 09/20/20 21:00 Ondansetron HCl (Zofran) 4 mg Q4H PRN IVP Nausea & Vomiting 09/19/20 01:30 10/19/20 01:29 Pantoprazole (Protonix) 40 mg DAILY ORAL 09/19/20 09:00 10/19/20 08:59 09/20/20 09:09 Phenytoin (Dilantin) 200 mg Q12HR ORAL 09/19/20 21:00 11/03/20 08:59 09/20/20 09:08 Sodium Chloride 1,000 ml @ 75 mls/hr [id number] IV 09/19/20 02:00 10/19/20 01:59 09/20/20 04:14 Terazosin HCl (Hytrin) 5 mg BEDTIME ORAL 09/19/20 21:00 10/19/20 20:59 09/19/20 20:58 Vancomycin HCl 250 ml @ 166.667 mls/hr Q24H IVPB 09/19/20 03:00 09/24/20 02:59 09/20/20 03:52 Vancomycin HCl (Vanco pharmacy to dose) 1 ea DAILY PRN MISC Per rx protocol 09/19/20 01:30 10/19/20 01:29 Zolpidem Tartrate (Ambien) 5 mg BEDTIME PRN ORAL Insomnia 09/19/20 01:45 09/26/20 01:44 09/19/20 20:58 Herminio Boss MD Sep 20, 2020 11:59
[2020-09-20] MEDS ORDERED: ATORVASTATIN CA40 MG ORAL (12:09)
[2020-09-20] MEDS ORDERED: CARVEDILOL25 MG ORAL (12:09)
[2020-09-20] MEDS ORDERED: METFORMIN HCL500 M1 ORAL (12:09)
[2020-09-20] MEDS ORDERED: SPIRONOLACTONE25 MG ORAL (12:12)
--- NOTE | 2020-09-20 12:29 | Surgery Progress Note ---
Surgery Progress Note Subjective Additional Comments no acute events plain films noted Objective Last 24 Hour Vital Signs Date Time Temp Pulse Resp B/P (MAP) Pulse Ox O2 Delivery O2 Flow Rate FiO2 09/20/20 12:07 106 18 141/89 94 09/20/20 09:09 106 141/89 09/20/20 09:08 141/89 09/20/20 09:00 Room Air 09/20/20 08:00 101 09/20/20 08:00 97.5 106 18 141/89 (106) 94 09/20/20 04:00 93 09/20/20 04:00 97.9 81 18 113/53 (73) 99 09/20/20 01:34 94 09/20/20 00:00 97.2 76 20 133/74 (93) 95 09/19/20 21:00 Room Air 09/19/20 20:00 97.8 74 18 129/77 (94) 94 09/19/20 20:00 73 09/19/20 17:54 78 138/78 09/19/20 16:41 97.3 09/19/20 16:00 97.5 77 18 138/78 (98) 96 09/19/20 16:00 78 I&O Intake and Output 09/19/20 09/20/20 19:00 07:00 Intake Total 435 ml 1065 ml Output Total 650 ml 1300 ml Balance -215 ml -235 ml Intake Oral 360 ml 240 ml IV Total 75 ml 825 ml Output Urine Total 650 ml 1300 ml Dressing: dry Wound: clean Cardiovascular: RSR Respiratory: clear Abdomen: soft, flat, non-tender, present bowel sounds, non-distended Extremities: edema, no cyanosis, pulses, other Laboratory Tests Test 09/20/20 06:44 White Blood Count 7.2 K/UL (4.8-10.8) Red Blood Count 4.28 M/UL (4.70-6.10) L Hemoglobin 11.6 G/DL (14.2-18.0) L Hematocrit 36.7 % (42.0-52.0) L Mean Corpuscular Volume 86 FL (80-99) Mean Corpuscular Hemoglobin 27.2 PG (27.0-31.0) Mean Corpuscular Hemoglobin Concent 31.7 G/DL (32.0-36.0) L Red Cell Distribution Width 13.3 % (11.6-14.8) Platelet Count 186 K/UL (150-450) Mean Platelet Volume 7.7 FL (6.5-10.1) Neutrophils (%) (Auto) 65.9 % (45.0-75.0) Lymphocytes (%) (Auto) 24.6 % (20.0-45.0) Monocytes (%) (Auto) 7.0 % (1.0-10.0) Eosinophils (%) (Auto) 2.0 % (0.0-3.0) Basophils (%) (Auto) 0.5 % (0.0-2.0) Sodium Level 136 MMOL/L (136-145) Potassium Level 4.4 MMOL/L (3.5-5.1) Chloride Level 100 MMOL/L (98-107) Carbon Dioxide Level 26 MMOL/L (21-32) Anion Gap 10 mmol/L (5-15) Blood Urea Nitrogen 14 mg/dL (7-18) Creatinine 1.0 MG/DL (0.55-1.30) Estimat Glomerular Filtration Rate > 60 mL/min (>60) Glucose Level 264 MG/DL (74-106) H Calcium Level 9.1 MG/DL (8.5-10.1) Phosphorus Level 3.3 MG/DL (2.5-4.9) Magnesium Level 1.7 MG/DL (1.8-2.4) L Total Bilirubin 0.4 MG/DL (0.2-1.0) Aspartate Amino Transf (AST/SGOT) 13 U/L (15-37) L Alanine Aminotransferase (ALT/SGPT) 20 U/L (12-78) Alkaline Phosphatase 133 U/L (46-116) H Total Protein 7.0 G/DL (6.4-8.2) Albumin 3.2 G/DL (3.4-5.0) L Globulin 3.8 g/dL Albumin/Globulin Ratio 0.8 (1.0-2.7) L Plan Problems: (1) Hyperkalemia (2) Cellulitis Assessment & Plan: 70-year-old male presented with left foot cellulitis. Prior TMA. Lateral aspect a 1 cm dehiscence identified opening no purulent drainage some serous drainage. Local wound care provided. Edema identified. Vascular imaging pending. Podiatry eval. Okay for diet. Continue antibiotics. No acute surgical invention. No abscess identified. Plainly cellulitis. Will follow with recommendations thank you for let me participate in patient's care Bilaterally, grayscale and duplex images demonstrate no evidence of intraluminal thrombus. Normal phasic Doppler waveforms, demonstrating normal augmentation response and no evidence of valvular insufficiency. Greater saphenous vein(s) and tibial veins are patent. Normal compressibility. Impression: Negative for evidence of lower extremity deep venous thrombosis bilaterally Again demonstrated is prior transmetatarsal amputation. Amputation margins appear clean. Wire is seen adjacent to the fifth metatarsal stump. Or osteolytic lesion demonstrated. No acute fracture. No dislocation. No soft tissue gas. No significant interim change Impression: No acute process (3) Renal insufficiency (4) Diabetic foot ulcer (5) Uncontrolled diabetes mellitus (6) Osteomyelitis of ankle or foot, acute (7) Epileptic seizure, generalized (8) Diabetes mellitus (9) CAD (coronary artery disease) (10) Cardiomyopathy (11) PVD (peripheral vascular disease) (12) History of CVA (cerebrovascular accident) Josafat Narvaez Sep 20, 2020 12:29
--- NOTE | 2020-09-20 13:36 | NUR ---
CONCERNING MRI LEFT FOOT, PT WAS GIVEN SEDATION AND PAIN MEDS, PER PT REQUEST IN ORDER TO PERFORM THE SCAN. DURING SCAN PT CONTINUED TO MOVE AND EVENTUALLY TRIED TO COME OFF THE TABLE. A LIMITED MRI WAS PERFORMED, ALTHOUGH THE MOVEMENT DURING THE SCAN IS SUBSTANTIAL. ELIESER COREA HAS BEEN INFORMED. NOTE, PT HAS A WALLET, KEYS AND A PHONE THAT WAS REMOVED AND RETURNED BACK TO THE PT AFTER THE SCAN. BOTH MYSELF AND BALTA WERE ASSISTING PT. TJB 13:40
[2020-09-20] MEDS: cefTRIAXone 2 GM in D5W 55 ML IVPB SCH (13:37)
--- NOTE | 2020-09-20 14:10 | NUR ---
CASE MANAGEMENT:REVIEW 09/20/20 SI: LEFT FOOT OSTEO 97.5 106 18 141/89 94% ON RA H/H-11.6/36.7 GLUCOSE+264 MAG-1.7 IS: IV ROCEPHIN Q24 IV VANCOMYCIN Q24 IVF@ 75/HR DILANTIN PO Q12 LIPITOR PO QHS HYTRIN PO QHS IMDUR PO QD NEURONTIN PO BID PLAVIX PO QD COREG PO BID ASA PO QD IV DILAUDID Q6HRS PRN : TELEMETRY STATUS DCP: FROM HOME PLAN: MRI OF FOOT TO EVALUATE TRANSMETATARSAL AMPUTATION
--- NOTE | 2020-09-20 14:58 | NUR ---
INSURANCE CLINICALS/REVIEW FAXED TO [facility] #[phone] fax# [phone]
--- NOTE | 2020-09-20 15:19 | Diagnostic Imaging Report ---
Indication: Left foot pain, left lateral foot ulcer Technique: Sagittal T1 fast spin echo and fast spin echo STIR, with repeats, coronal fast spin echo STIR images obtained of the hindfoot. Patient was unable to tolerate attempts at further imaging. Comparison: 12/31/2019. Also plain radiograph 09/18/2020 Findings: Exam is very limited due to the absence of multiple sequences, and the available sequences are borderline nondiagnostic due to the extensive motion artifact. A marker arrington a lateral soft tissue ulcer near the distal stump. Patient is status post transmetatarsal amputation. There is some susceptibility artifact from a wire located near the tip of the fifth metatarsal stump. There is some increased STIR signal in the fifth metatarsal stump on the coronal images, equivocally visualized on one of 2 sagittal STIR sequences, not corroborated on T1 sequences. This was equivocally evident previously. Well-circumscribed high STIR signal lesions of the talus and the calcaneus are again demonstrated and appear grossly unchanged. Questionable similar lesions are also seen in the distal tibia. As on the prior exam, there is considerable soft tissue edema no definite drainable fluid collection, although evaluation for such is extremely limited. Impression: Extremely limited borderline nondiagnostic exam for reasons described above Evidence of prior transmetatarsal amputation, also previously described Equivocal focal high STIR signal within the fifth metatarsal stump, could represent a small focus of osteomyelitis but it is not corroborated on the T2-weighted images. This is also demonstrated on the previous exam. If there is high clinical suspicion, bone scan may be useful to better characterize Extensive soft tissue edema. 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
[2020-09-20 16:00] VITALS: BP 110/67
--- NOTE | 2020-09-20 16:24 | Pulmonology Progress Note ---
Subjective ROS Limited/Unobtainable: No Constitutional: Reports: no symptoms HEENT: Repors: no symptoms Respiratory: Reports: no symptoms Cardiovascular: Reports: no symptoms Gastrointestinal/Abdominal: Reports: no symptoms Musculoskeletal: Reports: pain, other - in left foot Allergies: Coded Allergies: No Known Allergies (Unverified , 05/07/14) Objective Last 24 Hour Vital Signs Date Time Temp Pulse Resp B/P (MAP) Pulse Ox O2 Delivery O2 Flow Rate FiO2 09/20/20 16:00 97.8 106 19 110/67 (81) 93 09/20/20 12:37 106 18 141/89 94 09/20/20 12:07 106 18 141/89 94 09/20/20 12:00 86 09/20/20 09:09 106 141/89 09/20/20 09:08 141/89 09/20/20 09:00 Room Air 09/20/20 08:00 101 09/20/20 08:00 97.5 106 18 141/89 (106) 94 09/20/20 04:00 93 09/20/20 04:00 97.9 81 18 113/53 (73) 99 09/20/20 01:34 94 09/20/20 00:00 97.2 76 20 133/74 (93) 95 09/19/20 21:00 Room Air 09/19/20 20:00 97.8 74 18 129/77 (94) 94 09/19/20 20:00 73 09/19/20 17:54 78 138/78 09/19/20 16:41 97.3 Intake and Output 09/19/20 09/20/20 19:00 07:00 Intake Total 435 ml 1065 ml Output Total 650 ml 1300 ml Balance -215 ml -235 ml Intake Oral 360 ml 240 ml IV Total 75 ml 825 ml Output Urine Total 650 ml 1300 ml General Appearance: no acute distress HEENT: atraumatic Respiratory: lungs clear Cardiovascular: normal rate Abdomen: soft, non tender Extremities: other - left foot toes amputated Skin: ulcers - lateral aspect of L foot Microbiology Date/Time Source Procedure Growth Status 09/18/20 22:55 Rectum Received 09/18/20 22:55 Nasal Nares MRSA Culture - Final NO METHICILLIN RESISTANT STAPH AUREUS... Complete 09/18/20 19:30 Blood Blood Culture - Preliminary NO GROWTH AFTER 24 HOURS Resulted 09/18/20 19:15 Blood Blood Culture - Preliminary NO GROWTH AFTER 24 HOURS Resulted Laboratory Tests 09/20/20 06:44: White Blood Count 7.2, Red Blood Count 4.28L, Hemoglobin 11.6L, Hematocrit 36.7L , Mean Corpuscular Volume 86, Mean Corpuscular Hemoglobin 27.2, Mean Corpuscular Hemoglobin Concent 31.7L, Red Cell Distribution Width 13.3, Platelet Count 186, Mean Platelet Volume 7.7, Neutrophils (%) (Auto) 65.9, Lymphocytes (%) (Auto) 24.6, Monocytes (%) (Auto) 7.0, Eosinophils (%) (Auto) 2.0, Basophils (%) (Auto) 0.5, Sodium Level 136, Potassium Level 4.4, Chloride Level 100, Carbon Dioxide Level 26, Anion Gap 10, Blood Urea Nitrogen 14, Creatinine 1.0, Estimat Glomerular Filtration Rate > 60, Glucose Level 264H, Calcium Level 9.1, Phosphorus Level 3.3, Magnesium Level 1.7L, Total Bilirubin 0.4, Aspartate Amino Transf (AST/SGOT) 13L, Alanine Aminotransferase (ALT/SGPT) 20, Alkaline Phosphatase 133H, Total Protein 7.0, Albumin 3.2L, Globulin 3.8, Albumin/Globulin Ratio 0.8L Current Medications Medications (Trade) Dose Ordered Sig/Mell Route PRN Reason Start Time Stop Time Status Last Admin Dose Admin Acetaminophen/ Hydrocodone Bitart ([place] 5/325) 1 tab Q6H PRN ORAL Mild Pain (Pain Scale 1-3) 09/19/20 01:30 09/26/20 01:29 Aspirin (Ecotrin) 81 mg DAILY ORAL 09/19/20 09:00 11/03/20 08:59 09/20/20 09:09 Atorvastatin Calcium (Lipitor) 20 mg BEDTIME ORAL 09/19/20 21:00 12/18/20 20:59 09/19/20 20:58 Carvedilol (Coreg) 6.25 mg BID ORAL 09/19/20 09:00 10/19/20 08:59 09/20/20 09:09 Ceftriaxone Sodium 2 gm/ Dextrose 55 ml @ 110 mls/hr Q24H IVPB 09/19/20 13:00 09/26/20 12:59 09/20/20 13:37 Clonidine HCl (Catapres Tab) 0.1 mg Q4H PRN ORAL SBP>160MMHG 09/19/20 01:45 12/18/20 01:44 Clopidogrel Bisulfate (Plavix) 75 mg DAILY ORAL 09/19/20 09:00 10/19/20 08:59 09/20/20 09:09 Dextrose (Dextrose 50%) 25 ml Q30M PRN IV Hypoglycemia 09/19/20 01:30 12/18/20 01:29 Dextrose (Dextrose 50%) 50 ml Q30M PRN IV Hypoglycemia 09/19/20 01:30 12/18/20 01:29 Gabapentin (Neurontin) 600 mg BID ORAL 09/19/20 09:00 10/19/20 08:59 09/20/20 09:09 Gadobutrol (Gadavist) 7.5 mmol NOW PRN IV Radiology Procedure 09/19/20 10:15 09/23/20 10:14 Hydromorphone HCl (Dilaudid) 1 mg Q6H PRN IVP Moderate Pain (Pain Scale 4-6) 09/19/20 01:30 09/26/20 01:29 Hydromorphone HCl (Dilaudid) 2 mg Q6H PRN IVP Severe Pain (Pain Scale 7-10) 09/19/20 01:30 09/26/20 01:29 09/20/20 12:07 Insulin Aspart (NovoLOG) BEFORE MEALS AND HS SUBQ 09/19/20 06:30 12/18/20 06:29 09/20/20 12:20 Isosorbide Mononitrate (Imdur) 30 mg DAILY ORAL 09/19/20 09:00 10/19/20 08:59 09/20/20 09:08 Lorazepam (Ativan 2mg/ml 1ml) 1 mg ONCE PRN IV PRIOR TO MRI 09/20/20 08:30 09/20/20 21:00 09/20/20 12:07 Ondansetron HCl (Zofran) 4 mg Q4H PRN IVP Nausea & Vomiting 09/19/20 01:30 10/19/20 01:29 Pantoprazole (Protonix) 40 mg DAILY ORAL 09/19/20 09:00 10/19/20 08:59 09/20/20 09:09 Phenytoin (Dilantin) 200 mg Q12HR ORAL 09/19/20 21:00 11/03/20 08:59 09/20/20 09:08 Sodium Chloride 1,000 ml @ 75 mls/hr [id number] IV 09/19/20 02:00 10/19/20 01:59 09/20/20 04:14 Terazosin HCl (Hytrin) 5 mg BEDTIME ORAL 09/19/20 21:00 10/19/20 20:59 09/19/20 20:58 Vancomycin HCl 250 ml @ 166.667 mls/hr Q24H IVPB 09/19/20 03:00 09/24/20 02:59 09/20/20 03:52 Vancomycin HCl (Vanco pharmacy to dose) 1 ea DAILY PRN MISC Per rx protocol 09/19/20 01:30 10/19/20 01:29 Zolpidem Tartrate (Ambien) 5 mg BEDTIME PRN ORAL Insomnia 09/19/20 01:45 09/26/20 01:44 09/19/20 20:58 Assessment/Plan Assessment/Plan 1. Diabetic foot ulcer - rule out osteomyelitis with follow-up MRI of the foot 2. Uncontrolled diabetes mellitus with hyperglycemia -BG control -A1c 12.2 3. Hyperkalemia - resolved 4. Acute renal failure - per primary MD 5 .History of seizure -Continue Dilantin 6. Risk of aspiration pneumonia given history of seizure -Monitor for seizure -Monitor for fever 7. Leukocytosis -On antibiotics per ID 8. ex-smoker The care for this patient was discussed with my supervising physician. Time spent for this case was approximately 31 minutes. Asher Parikh Sep 20, 2020 16:24
--- NOTE | 2020-09-20 19:20 | NUR ---
NURSE HAND-OFF REPORT: Important Events on Shift:Pt had Foot MRI Patient Status: full code Diet: CCHO Pending Orders: N/A Pending Results/Labs:N/A Pending MD notification:N/A Latest Vital Signs: Temperature 97.8 , Pulse 92 , B/P 110 /67 , Respiratory Rate 19 , O2 SAT 93 , Room Air, O2 Flow Rate . Vital Sign Comment: Stable EKG Rhythm: Sinus Rhythm Rhythm change?: N MD Notified?: - MD Response: Latest Manzanares Fall Score: 60 Fall Risk: High Risk Safety Measures: Call light Within Reach, Bed Alarm Zone 2, Side Rails Side Rails x3, Bed position Low and Locked. Fall Precautions: Yellow Socks Yellow Gown Patient Fall Education Report given to Lali/ELIESER.
--- NOTE | 2020-09-20 19:42 | NUR ---
NURSE NOTES: Patient in bed, awake. On room air with no signs of distress or SOB. IV site intact and patent. mushroom cutter in place. Bed locked and in lowest position. Bed alarm on. Call light in reach. Will continue plan of care.
[2020-09-20 20:00] VITALS: BP 157/91
[2020-09-20] MEDS: Atorvastatin 20mg tab ORAL SCH (20:22)
[2020-09-21] VITALS: BP 153/76
[2020-09-21 02:22] LABS: ALANINE AMINOTRANSFERASE 20 U/L (12-78); ALBUMIN 3.5 G/DL (3.4-5.0); ALBUMIN/GLOBULIN RATIO 0.9 (1.0-2.7); ALKALINE PHOSPHATASE 156 U/L (46-116); ANION GAP 7 mmol/L (5-15); ASPARTATE AMINO TRANSFERASE 15 U/L (15-37); BILIRUBIN,TOTAL 0.3 MG/DL (0.2-1.0); BLOOD UREA NITROGEN 19 mg/dL (7-18); CALCIUM 9.5 MG/DL (8.5-10.1); CARBON DIOXIDE 29 MMOL/L (21-32); CHLORIDE 100 MMOL/L (98-107); CREATININE 1.2 MG/DL (0.55-1.30); PHOSPHORUS 3.3 MG/DL (2.5-4.9); POTASSIUM 4.5 MMOL/L (3.5-5.1); SODIUM 136 MMOL/L (136-145)
[2020-09-21 02:47] LABS: BASOPHILS % (AUTO) 0.4 % (0.0-2.0); EOSINOPHILS % (AUTO) 1.2 % (0.0-3.0); HEMATOCRIT 40.4 % (42.0-52.0); HEMOGLOBIN 12.5 G/DL (14.2-18.0); LYMPHOCYTES % (AUTO) 15.4 % (20.0-45.0); MEAN CORPUSCULAR VOLUME 86 FL (80-99); MONOCYTES % (AUTO) 5.2 % (1.0-10.0); NEUTROPHILS % (AUTO) 77.8 % (45.0-75.0); PLATELET COUNT 201 K/UL (150-450); RED BLOOD COUNT 4.68 M/UL (4.70-6.10); RED CELL DISTRIBUTION WIDTH 13.1 % (11.6-14.8); WHITE BLOOD COUNT 9.6 K/UL (4.8-10.8)
[2020-09-21 04:00] VITALS: BP 163/75
[2020-09-21] MEDS: Vancomycin 750mg/NS 275ml IVPB SCH ×4 (05:10→17:10)
[2020-09-21] MEDS: NovoLOG Insulin Flexpen SUBQ SCH ×4 (06:32→21:51)
--- NOTE | 2020-09-21 07:42 | NUR ---
NURSE HAND-OFF REPORT: Important Events on Shift: No acute events Patient Status: Stable Diet: CCHO (med) Pending Orders: N/A Pending Results/Labs: CMP, mag, phos, CBC Pending MD notification: N/A Latest Vital Signs: Temperature 97.9 , Pulse 95 , B/P 163 /75 , Respiratory Rate 16 , O2 SAT 94 , Room Air, O2 Flow Rate . Vital Sign Comment: [] EKG Rhythm: Sinus Rhythm Rhythm change?: N MD Notified?: - MD Response: Latest Manzanares Fall Score: 60 Fall Risk: High Risk Safety Measures: Call light Within Reach, Bed Alarm Zone 2, Side Rails Side Rails x3, Bed position Low and Locked. Fall Precautions: Yellow Socks Yellow Gown Patient Fall Education Report given to ELIESER Kowalski.
--- NOTE | 2020-09-21 07:54 | NUR ---
NURSE NOTES: Report received from Lali MON. Patient seen on rounds, awake and up in bed. Not in distress, no complaints of pain, nurse reports given PRN pain meds via IV with relief of pain over left foot. PIV on left AC and left forearm patent and infusing 1/2 NS at 75 cc/hr. Bed low and locked, siderails up x2, call light placed within reach and instructed to call nurse for assistance. Will continue to monitor.
[2020-09-21 08:00] VITALS: BP 154/96
[2020-09-21] MEDS: Aspirin EC 81mg tab ORAL SCH (09:00)
[2020-09-21] MEDS: Imdur 30mg tab ORAL SCH (09:01)
[2020-09-21] MEDS: Phenytoin 100mg cap ORAL SCH ×2 (09:01→21:02)
[2020-09-21] MEDS: Carvedilol 6.25mg Tab ORAL SCH ×2 (09:01→17:15)
--- NOTE | 2020-09-21 10:11 | Surgery Progress Note ---
Surgery Progress Note Subjective Symptoms: improved, tolerating diet, voiding well, passing flatus Objective Last 24 Hour Vital Signs Date Time Temp Pulse Resp B/P (MAP) Pulse Ox O2 Delivery O2 Flow Rate FiO2 09/21/20 09:01 154/96 09/21/20 09:01 112 154/96 09/21/20 05:11 163/75 09/21/20 04:00 97.9 77 16 163/75 (104) 94 09/21/20 04:00 95 09/21/20 00:00 98.6 90 18 153/76 (101) 94 09/20/20 23:00 87 09/20/20 21:00 Room Air 09/20/20 20:00 90 09/20/20 20:00 97.9 80 20 157/91 (113) 96 09/20/20 17:43 92 110/67 09/20/20 16:00 97.8 106 19 110/67 (81) 93 09/20/20 16:00 92 09/20/20 12:37 106 18 141/89 94 09/20/20 12:07 106 18 141/89 94 09/20/20 12:00 86 I&O Intake and Output 09/20/20 09/21/20 19:00 07:00 Intake Total 500 ml 240 ml Output Total 600 ml Balance -100 ml 240 ml Intake Oral 500 ml 240 ml Output Urine Total 600 ml # Voids 3 Dressing: other Wound: other Cardiovascular: RSR Respiratory: decreased breath sounds Abdomen: soft, non-tender, present bowel sounds, non-distended Extremities: edema, no tenderness, no cyanosis, other Laboratory Tests Test 09/20/20 12:07 09/20/20 17:43 09/20/20 20:36 09/21/20 01:53 POC Whole Blood Glucose Pending Pending Pending White Blood Count 9.6 K/UL (4.8-10.8) Red Blood Count 4.68 M/UL (4.70-6.10) L Hemoglobin 12.5 G/DL (14.2-18.0) L Hematocrit 40.4 % (42.0-52.0) L Mean Corpuscular Volume 86 FL (80-99) Mean Corpuscular Hemoglobin 26.6 PG (27.0-31.0) L Mean Corpuscular Hemoglobin Concent 30.8 G/DL (32.0-36.0) L Red Cell Distribution Width 13.1 % (11.6-14.8) Platelet Count 201 K/UL (150-450) Mean Platelet Volume 7.8 FL (6.5-10.1) Neutrophils (%) (Auto) 77.8 % (45.0-75.0) H Lymphocytes (%) (Auto) 15.4 % (20.0-45.0) L Monocytes (%) (Auto) 5.2 % (1.0-10.0) Eosinophils (%) (Auto) 1.2 % (0.0-3.0) Basophils (%) (Auto) 0.4 % (0.0-2.0) Sodium Level 136 MMOL/L (136-145) Potassium Level 4.5 MMOL/L (3.5-5.1) Chloride Level 100 MMOL/L (98-107) Carbon Dioxide Level 29 MMOL/L (21-32) Anion Gap 7 mmol/L (5-15) Blood Urea Nitrogen 19 mg/dL (7-18) H Creatinine 1.2 MG/DL (0.55-1.30) Estimat Glomerular Filtration Rate > 60 mL/min (>60) Glucose Level 238 MG/DL (74-106) H Calcium Level 9.5 MG/DL (8.5-10.1) Phosphorus Level 3.3 MG/DL (2.5-4.9) Magnesium Level 1.9 MG/DL (1.8-2.4) Total Bilirubin 0.3 MG/DL (0.2-1.0) Aspartate Amino Transf (AST/SGOT) 15 U/L (15-37) Alanine Aminotransferase (ALT/SGPT) 20 U/L (12-78) Alkaline Phosphatase 156 U/L (46-116) H Total Protein 7.6 G/DL (6.4-8.2) Albumin 3.5 G/DL (3.4-5.0) Globulin 4.1 g/dL Albumin/Globulin Ratio 0.9 (1.0-2.7) L Vancomycin Level Trough 7.8 ug/mL (5.0-12.0) Test 09/21/20 05:19 POC Whole Blood Glucose 251 MG/DL (74-106) H Plan Problems: (1) Hyperkalemia (2) Cellulitis Assessment & Plan: 70-year-old male presented with left foot cellulitis. Prior TMA. Lateral aspect a 1 cm dehiscence identified opening no purulent drainage some serous drainage. Local wound care provided. Edema identified. Vascular imaging pending. Podiatry eval. Okay for diet. Continue antibiotics. No acute surgical invention. No abscess identified. Plainly cellulitis. Will follow with recommendations thank you for let me participate in patient's care A marker arrington a lateral soft tissue ulcer near the distal stump. Patient is status post transmetatarsal amputation. There is some susceptibility artifact from a wire located near the tip of the fifth metatarsal stump. There is some increased STIR signal in the fifth metatarsal stump on the coronal images, equivocally visualized on one of 2 sagittal STIR sequences, not corroborated on T1 sequences. This was equivocally evident previously. Well-circumscribed high STIR signal lesions of the talus and the calcaneus are again demonstrated and appear grossly unchanged. Questionable similar lesions are also seen in the distal tibia. As on the prior exam, there is considerable soft tissue edema no definite drainable fluid collection, although evaluation for such is extremely limited. Impression: Extremely limited borderline nondiagnostic exam for reasons described above Evidence of prior transmetatarsal amputation, also previously described Equivocal focal high STIR signal within the fifth metatarsal stump, could represent a small focus of osteomyelitis but it is not corroborated on the T2-weighted images. This is also demonstrated on the previous exam. If there is high clinical suspicion, bone scan may be useful to better characterize Extensive soft tissue edema. 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 Bilaterally, grayscale and duplex images demonstrate no evidence of intraluminal thrombus. Normal phasic Doppler waveforms, demonstrating normal augmentation response and no evidence of valvular insufficiency. Greater saphenous vein(s) and tibial veins are patent. Normal compressibility. Impression: Negative for evidence of lower extremity deep venous thrombosis bilaterally Again demonstrated is prior transmetatarsal amputation. Amputation margins appear clean. Wire is seen adjacent to the fifth metatarsal stump. Or osteolytic lesion demonstrated. No acute fracture. No dislocation. No soft tissue gas. No significant interim change Impression: No acute process (3) Renal insufficiency (4) Diabetic foot ulcer (5) Uncontrolled diabetes mellitus (6) Osteomyelitis of ankle or foot, acute (7) Epileptic seizure, generalized (8) Diabetes mellitus (9) CAD (coronary artery disease) (10) Cardiomyopathy (11) PVD (peripheral vascular disease) (12) History of CVA (cerebrovascular accident) Josafat Narvaez Sep 21, 2020 10:11
--- NOTE | 2020-09-21 10:18 | NUR ---
CASE MANAGEMENT:REVIEW 09/21/20 SI: LEFT FOOT OSTEO 97.9 112 16 154/96 94% ON RA H/H-12.5/40.4 GLUCOSE+238 IS: IV ROCEPHIN Q24 IV VANCOMYCIN Q24 IVF@ 75/HR DILANTIN PO Q12 LIPITOR PO QHS HYTRIN PO QHS IMDUR PO QD NEURONTIN PO BID PLAVIX PO QD COREG PO BID ASA PO QD IV DILAUDID Q6HRS PRN : TELEMETRY STATUS DCP: FROM HOME PLAN: MRI SUSPICIOUS FOR OSTEO RECOMMENDATION IS FOR BONE SCAN
--- NOTE | 2020-09-21 10:47 | Nephrology Progress Note ---
Assessment/Plan Plan #left foot osteo #r/o sepsis #hyponatremia #hyperkalemia #JASMIN #DM #HTN #HLD - IVF - IV antibiotics - pain control - ID eval - podiatry eval - surgery eval - resume home meds - monitor BG - hold metformin - foot MRI noted -time spent 65 min Subjective Subjective Impression: Extremely limited borderline nondiagnostic exam for reasons described above Evidence of prior transmetatarsal amputation, also previously described Equivocal focal high STIR signal within the fifth metatarsal stump, could represent a small focus of osteomyelitis but it is not corroborated on the T2-weighted images. This is also demonstrated on the previous exam. If there is high clinical mata spicion, bone scan may be useful to better characterize Extensive soft tissue edema. 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 Objective Objective Last 24 Hour Vital Signs Date Time Temp Pulse Resp B/P (MAP) Pulse Ox O2 Delivery O2 Flow Rate FiO2 09/21/20 09:01 154/96 09/21/20 09:01 112 154/96 09/21/20 09:00 Room Air 09/21/20 08:00 99.3 112 16 154/96 (115) 92 09/21/20 08:00 108 09/21/20 05:11 163/75 09/21/20 04:00 97.9 77 16 163/75 (104) 94 09/21/20 04:00 95 09/21/20 00:00 98.6 90 18 153/76 (101) 94 09/20/20 23:00 87 09/20/20 21:00 Room Air 09/20/20 20:00 90 09/20/20 20:00 97.9 80 20 157/91 (113) 96 09/20/20 17:43 92 110/67 09/20/20 16:00 97.8 106 19 110/67 (81) 93 09/20/20 16:00 92 09/20/20 12:37 106 18 141/89 94 09/20/20 12:07 106 18 141/89 94 09/20/20 12:00 86 Intake and Output 09/20/20 09/21/20 19:00 07:00 Intake Total 500 ml 240 ml Output Total 600 ml Balance -100 ml 240 ml Intake Oral 500 ml 240 ml Output Urine Total 600 ml # Voids 3 Laboratory Tests 09/20/20 12:07: POC Whole Blood Glucose [Pending] 09/20/20 17:43: POC Whole Blood Glucose [Pending] 09/20/20 20:36: POC Whole Blood Glucose [Pending] 09/21/20 01:53: White Blood Count 9.6, Red Blood Count 4.68L, Hemoglobin 12.5L, Hematocrit 40.4L , Mean Corpuscular Volume 86, Mean Corpuscular Hemoglobin 26.6L, Mean Corpuscular Hemoglobin Concent 30.8L, Red Cell Distribution Width 13.1, Platelet Count 201, Mean Platelet Volume 7.8, Neutrophils (%) (Auto) 77.8H, Lymphocytes (%) (Auto) 15.4L, Monocytes (%) (Auto) 5.2, Eosinophils (%) (Auto) 1.2, Basophils (%) (Auto) 0.4, Sodium Level 136, Potassium Level 4.5, Chloride Level 100, Carbon Dioxide Level 29, Anion Gap 7, Blood Urea Nitrogen 19H, Creatinine 1.2, Estimat Glomerular Filtration Rate > 60, Glucose Level 238H, Calcium Level 9.5, Phosphorus Level 3.3, Magnesium Level 1.9, Total Bilirubin 0.3, Aspartate Amino Transf (AST/SGOT) 15, Alanine Aminotransferase (ALT/SGPT) 20, Alkaline Phosphatase 156H, Total Protein 7.6, Albumin 3.5, Globulin 4.1, Albumin/Globulin Ratio 0.9L, Vancomycin Level Trough 7.8 09/21/20 05:19: POC Whole Blood Glucose 251H Height (Feet): 6 Height (Inches): 0.00 Weight (Pounds): 150 Objective General: Patient is laying in bed with normal work of breathing on room air HEENT: Head exam reveals that the head is normocephalic, atraumatic without deformity or unusual swelling. Pupils are PERRLA. CHEST AND LUNGS: Reveals clear, normal, symmetrical breath sounds with no adventitious sounds. CARDIOVASCULAR: Reveals normal S1, S2 without murmurs, rubs, or clicks. ABDOMEN: Soft with no tenderness or organomegaly. RECTAL: Deferred. MUSCULOSKELETAL: There is no tenderness to palpation. Range of motion is normal. SKIN: All left foot toes amputated. Small chronic wound on the lateral aspect of left foot without erythema or induration. NEUROLOGICAL: Alert and oriented x3 , nonfocal Babs Najera M.D. Sep 21, 2020 10:47
--- NOTE | 2020-09-21 11:30 | NUR ---
RD ASSESSMENT & RECOMMENDATIONS SEE CARE ACTIVITY FOR COMPLETE ASSESSMENT DAILY ESTIMATED NEEDS: Needs based on dm, wound, underweight / 67.7kg 30-35 kcals/kg 4791-3081 total kcals 1.25-1.5 g protein/kg 85-102 g total protein 25-35ml/kcal mL/kg 6170-2677 total fluid mLs NUTRITION DIAGNOSIS: Altered nutrition related lab values r/t diabetes as evidenced by elev elev BG (238-302), high A1C 12.2, uglu 4+ on adm. CURRENT DIET: CCHO MED PO DIET RECOMMENDATIONS: CCHO MED + DOUBLE PROTEIN PORTIONS ADDITIONAL RECOMMENDATIONS: * Obtain a CALIBRATED bed scale wt for accurate CBW * Monitor BGs, consider long acting insulin for improved BG control (BGs 200's and 300's) * TELEPHONE ADVICE NURSE eval for appropriate texture- h/o CVA, poor dentition * Wound care: MVI x1, Vit C 250mg QD + BRANDI BID * Add Glucerna x1 daily (10 g pro)
[2020-09-21 12:00] VITALS: BP 107/77
--- NOTE | 2020-09-21 13:14 | Pulmonology Progress Note ---
Subjective ROS Limited/Unobtainable: No Constitutional: Reports: no symptoms HEENT: Repors: no symptoms Respiratory: Reports: no symptoms Cardiovascular: Reports: no symptoms Gastrointestinal/Abdominal: Reports: no symptoms Musculoskeletal: Reports: pain, other - in left foot Allergies: Coded Allergies: No Known Allergies (Unverified , 05/07/14) Objective Last 24 Hour Vital Signs Date Time Temp Pulse Resp B/P (MAP) Pulse Ox O2 Delivery O2 Flow Rate FiO2 09/21/20 09:01 154/96 09/21/20 09:01 112 154/96 09/21/20 09:00 Room Air 09/21/20 08:00 99.3 112 16 154/96 (115) 92 09/21/20 08:00 108 09/21/20 05:11 163/75 09/21/20 04:00 97.9 77 16 163/75 (104) 94 09/21/20 04:00 95 09/21/20 00:00 98.6 90 18 153/76 (101) 94 09/20/20 23:00 87 09/20/20 21:00 Room Air 09/20/20 20:00 90 09/20/20 20:00 97.9 80 20 157/91 (113) 96 09/20/20 17:43 92 110/67 09/20/20 16:00 97.8 106 19 110/67 (81) 93 09/20/20 16:00 92 Intake and Output 09/20/20 09/21/20 19:00 07:00 Intake Total 500 ml 240 ml Output Total 600 ml Balance -100 ml 240 ml Intake Oral 500 ml 240 ml Output Urine Total 600 ml # Voids 3 General Appearance: no acute distress HEENT: atraumatic Respiratory: lungs clear Cardiovascular: normal rate Abdomen: soft, non tender Extremities: other - left foot toes amputated Skin: ulcers - lateral aspect of L foot Microbiology Date/Time Source Procedure Growth Status 09/20/20 16:40 Nasopharynx SARS-CoV-2 Antigen (Rapid)(TAB) - Final Complete 09/18/20 22:55 Rectum - Final NO CARBAPENEM-RESISTANT ENTEROBACTERI... Complete 09/18/20 22:55 Rectum VRE Culture - Final NO VANCOMYCIN RESISTANT ENTEROCOCCUS ... Complete 09/18/20 22:55 Nasal Nares MRSA Culture - Final NO METHICILLIN RESISTANT STAPH AUREUS... Complete 09/18/20 19:30 Blood Blood Culture - Preliminary NO GROWTH AFTER 48 HOURS Resulted 09/18/20 19:15 Blood Blood Culture - Preliminary NO GROWTH AFTER 48 HOURS Resulted Laboratory Tests 09/20/20 17:43: POC Whole Blood Glucose [Pending] 09/20/20 20:36: POC Whole Blood Glucose [Pending] 09/21/20 01:53: White Blood Count 9.6, Red Blood Count 4.68L, Hemoglobin 12.5L, Hematocrit 40.4L , Mean Corpuscular Volume 86, Mean Corpuscular Hemoglobin 26.6L, Mean Corpuscular Hemoglobin Concent 30.8L, Red Cell Distribution Width 13.1, Platelet Count 201, Mean Platelet Volume 7.8, Neutrophils (%) (Auto) 77.8H, Lymphocytes (%) (Auto) 15.4L, Monocytes (%) (Auto) 5.2, Eosinophils (%) (Auto) 1.2, Basophils (%) (Auto) 0.4, Sodium Level 136, Potassium Level 4.5, Chloride Level 100, Carbon Dioxide Level 29, Anion Gap 7, Blood Urea Nitrogen 19H, Creatinine 1.2, Estimat Glomerular Filtration Rate > 60, Glucose Level 238H, Calcium Level 9.5, Phosphorus Level 3.3, Magnesium Level 1.9, Total Bilirubin 0.3, Aspartate Amino Transf (AST/SGOT) 15, Alanine Aminotransferase (ALT/SGPT) 20, Alkaline Phosphatase 156H, Total Protein 7.6, Albumin 3.5, Globulin 4.1, Albumin/Globulin Ratio 0.9L, Vancomycin Level Trough 7.8 09/21/20 05:19: POC Whole Blood Glucose 251H 09/21/20 11:54: POC Whole Blood Glucose 334H Current Medications Medications (Trade) Dose Ordered Sig/Mell Route PRN Reason Start Time Stop Time Status Last Admin Dose Admin Acetaminophen/ Hydrocodone Bitart ([place] 5/325) 1 tab Q6H PRN ORAL Mild Pain (Pain Scale 1-3) 09/19/20 01:30 09/26/20 01:29 Aspirin (Ecotrin) 81 mg DAILY ORAL 09/19/20 09:00 11/03/20 08:59 09/21/20 09:00 Atorvastatin Calcium (Lipitor) 20 mg BEDTIME ORAL 09/19/20 21:00 12/18/20 20:59 09/20/20 20:22 Carvedilol (Coreg) 6.25 mg BID ORAL 09/19/20 09:00 10/19/20 08:59 09/21/20 09:01 Ceftriaxone Sodium 2 gm/ Dextrose 55 ml @ 110 mls/hr Q24H IVPB 09/19/20 13:00 09/26/20 12:59 09/20/20 13:37 Clonidine HCl (Catapres Tab) 0.1 mg Q4H PRN ORAL SBP>160MMHG 09/19/20 01:45 12/18/20 01:44 09/21/20 05:11 Clopidogrel Bisulfate (Plavix) 75 mg DAILY ORAL 09/19/20 09:00 10/19/20 08:59 09/21/20 09:00 Dextrose (Dextrose 50%) 25 ml Q30M PRN IV Hypoglycemia 09/19/20 01:30 12/18/20 01:29 Dextrose (Dextrose 50%) 50 ml Q30M PRN IV Hypoglycemia 09/19/20 01:30 12/18/20 01:29 Gabapentin (Neurontin) 600 mg BID ORAL 09/19/20 09:00 10/19/20 08:59 09/21/20 08:59 Gadobutrol (Gadavist) 7.5 mmol NOW PRN IV Radiology Procedure 09/19/20 10:15 09/23/20 10:14 Hydromorphone HCl (Dilaudid) 1 mg Q6H PRN IVP Moderate Pain (Pain Scale 4-6) 09/19/20 01:30 09/26/20 01:29 Hydromorphone HCl (Dilaudid) 2 mg Q6H PRN IVP Severe Pain (Pain Scale 7-10) 09/19/20 01:30 09/26/20 01:29 09/21/20 09:19 Insulin Aspart (NovoLOG) BEFORE MEALS AND HS SUBQ 09/19/20 06:30 12/18/20 06:29 09/21/20 12:21 Isosorbide Mononitrate (Imdur) 30 mg DAILY ORAL 09/19/20 09:00 10/19/20 08:59 09/21/20 09:01 Ondansetron HCl (Zofran) 4 mg Q4H PRN IVP Nausea & Vomiting 09/19/20 01:30 10/19/20 01:29 Pantoprazole (Protonix) 40 mg DAILY ORAL 09/19/20 09:00 10/19/20 08:59 09/21/20 09:00 Phenytoin (Dilantin) 200 mg Q12HR ORAL 09/19/20 21:00 11/03/20 08:59 09/21/20 09:01 Sodium Chloride 1,000 ml @ 75 mls/hr [id number] IV 09/19/20 02:00 10/19/20 01:59 09/20/20 17:50 Terazosin HCl (Hytrin) 5 mg BEDTIME ORAL 09/19/20 21:00 10/19/20 20:59 09/20/20 20:22 Vancomycin HCl (Vanco pharmacy to dose) 1 ea DAILY PRN MISC Per rx protocol 09/19/20 01:30 10/19/20 01:29 Vancomycin HCl 750 mg/Sodium Chloride 275 ml @ 183.333 mls/hr Q12H IVPB 09/21/20 05:00 09/26/20 04:59 09/21/20 05:10 Zolpidem Tartrate (Ambien) 5 mg BEDTIME PRN ORAL Insomnia 09/19/20 01:45 09/26/20 01:44 09/19/20 20:58 Assessment/Plan Assessment/Plan 1. Diabetic foot ulcer - MRI of the L foot (09/20) suspicious for osteomyelitis; recommendation is bone scan -Wound care following 2. Uncontrolled diabetes mellitus with hyperglycemia -BG control -A1c 12.2 3. Hyperkalemia - resolved 4. Acute renal failure - per primary MD 5 .History of seizure -Continue Dilantin 6. Risk of aspiration pneumonia given history of seizure -Monitor for seizure -Monitor for fever 7. Leukocytosis -On antibiotics per ID 8. ex-smoker The care for this patient was discussed with my supervising physician. Time spent for this case was approximately 31 minutes. Asher Parikh Sep 21, 2020 13:14
--- NOTE | 2020-09-21 13:59 | Infectious Diseases Prog Note ---
Assessment/Plan Assessment/Plan IMPRESSION: 1. Diabetic foot ulcer, cellulitis, ?osteomyelitis. 2. Diabetes mellitus with hyperglycemia. 3. Hyperkalemia. 4. Acute renal failure. 5. Peripheral vascular disease. 6. Lung infiltrates, ? pneumonia RECOMMENDATION: Continue IV vancomycin & ceftriaxone. Inconclusive MRI of the foot because of motion artifact Rapid COVID19 test: negative Subjective ROS Limited/Unobtainable: No Constitutional: Reports: no symptoms Respiratory: Reports: no symptoms Gastrointestinal/Abdominal: Reports: no symptoms Genitourinary: Reports: no symptoms Musculoskeletal: Reports: pain, other - left foot Allergies: Coded Allergies: No Known Allergies (Unverified , 05/07/14) Objective Last 24 Hour Vital Signs Date Time Temp Pulse Resp B/P (MAP) Pulse Ox O2 Delivery O2 Flow Rate FiO2 09/21/20 09:01 154/96 09/21/20 09:01 112 154/96 09/21/20 09:00 Room Air 09/21/20 08:00 99.3 112 16 154/96 (115) 92 09/21/20 08:00 108 09/21/20 05:11 163/75 09/21/20 04:00 97.9 77 16 163/75 (104) 94 09/21/20 04:00 95 09/21/20 00:00 98.6 90 18 153/76 (101) 94 09/20/20 23:00 87 09/20/20 21:00 Room Air 09/20/20 20:00 90 09/20/20 20:00 97.9 80 20 157/91 (113) 96 09/20/20 17:43 92 110/67 09/20/20 16:00 97.8 106 19 110/67 (81) 93 09/20/20 16:00 92 Height (Feet): 6 Height (Inches): 0.00 Weight (Pounds): 150 HEENT: mucous membranes moist Respiratory/Chest: lungs clear Cardiovascular: normal rate Abdomen: soft, non tender Extremities: other - left foot edema Skin: ulcers, other - left lateral foot Neurologic/Psychiatric: alert, responsive Microbiology Date/Time Source Procedure Growth Status 09/20/20 16:40 Nasopharynx SARS-CoV-2 Antigen (Rapid)(TAB) - Final Complete 09/18/20 22:55 Rectum - Final NO CARBAPENEM-RESISTANT ENTEROBACTERI... Complete 09/18/20 22:55 Rectum VRE Culture - Final NO VANCOMYCIN RESISTANT ENTEROCOCCUS ... Complete 09/18/20 22:55 Nasal Nares MRSA Culture - Final NO METHICILLIN RESISTANT STAPH AUREUS... Complete 09/18/20 19:30 Blood Blood Culture - Preliminary NO GROWTH AFTER 48 HOURS Resulted 09/18/20 19:15 Blood Blood Culture - Preliminary NO GROWTH AFTER 48 HOURS Resulted Laboratory Tests Test 09/20/20 17:43 09/20/20 20:36 09/21/20 01:53 09/21/20 05:19 POC Whole Blood Glucose Pending Pending 251 MG/DL (74-106) H White Blood Count 9.6 K/UL (4.8-10.8) Red Blood Count 4.68 M/UL (4.70-6.10) L Hemoglobin 12.5 G/DL (14.2-18.0) L Hematocrit 40.4 % (42.0-52.0) L Mean Corpuscular Volume 86 FL (80-99) Mean Corpuscular Hemoglobin 26.6 PG (27.0-31.0) L Mean Corpuscular Hemoglobin Concent 30.8 G/DL (32.0-36.0) L Red Cell Distribution Width 13.1 % (11.6-14.8) Platelet Count 201 K/UL (150-450) Mean Platelet Volume 7.8 FL (6.5-10.1) Neutrophils (%) (Auto) 77.8 % (45.0-75.0) H Lymphocytes (%) (Auto) 15.4 % (20.0-45.0) L Monocytes (%) (Auto) 5.2 % (1.0-10.0) Eosinophils (%) (Auto) 1.2 % (0.0-3.0) Basophils (%) (Auto) 0.4 % (0.0-2.0) Sodium Level 136 MMOL/L (136-145) Potassium Level 4.5 MMOL/L (3.5-5.1) Chloride Level 100 MMOL/L (98-107) Carbon Dioxide Level 29 MMOL/L (21-32) Anion Gap 7 mmol/L (5-15) Blood Urea Nitrogen 19 mg/dL (7-18) H Creatinine 1.2 MG/DL (0.55-1.30) Estimat Glomerular Filtration Rate > 60 mL/min (>60) Glucose Level 238 MG/DL (74-106) H Calcium Level 9.5 MG/DL (8.5-10.1) Phosphorus Level 3.3 MG/DL (2.5-4.9) Magnesium Level 1.9 MG/DL (1.8-2.4) Total Bilirubin 0.3 MG/DL (0.2-1.0) Aspartate Amino Transf (AST/SGOT) 15 U/L (15-37) Alanine Aminotransferase (ALT/SGPT) 20 U/L (12-78) Alkaline Phosphatase 156 U/L (46-116) H Total Protein 7.6 G/DL (6.4-8.2) Albumin 3.5 G/DL (3.4-5.0) Globulin 4.1 g/dL Albumin/Globulin Ratio 0.9 (1.0-2.7) L Vancomycin Level Trough 7.8 ug/mL (5.0-12.0) Test 09/21/20 11:54 POC Whole Blood Glucose 334 MG/DL (74-106) H Current Medications Medications (Trade) Dose Ordered Sig/Mell Route PRN Reason Start Time Stop Time Status Last Admin Dose Admin Acetaminophen/ Hydrocodone Bitart ([place] 5/325) 1 tab Q6H PRN ORAL Mild Pain (Pain Scale 1-3) 09/19/20 01:30 09/26/20 01:29 Aspirin (Ecotrin) 81 mg DAILY ORAL 09/19/20 09:00 11/03/20 08:59 09/21/20 09:00 Atorvastatin Calcium (Lipitor) 20 mg BEDTIME ORAL 09/19/20 21:00 12/18/20 20:59 09/20/20 20:22 Carvedilol (Coreg) 6.25 mg BID ORAL 09/19/20 09:00 10/19/20 08:59 09/21/20 09:01 Ceftriaxone Sodium 2 gm/ Dextrose 55 ml @ 110 mls/hr Q24H IVPB 09/19/20 13:00 09/26/20 12:59 09/20/20 13:37 Clonidine HCl (Catapres Tab) 0.1 mg Q4H PRN ORAL SBP>160MMHG 09/19/20 01:45 12/18/20 01:44 09/21/20 05:11 Clopidogrel Bisulfate (Plavix) 75 mg DAILY ORAL 09/19/20 09:00 10/19/20 08:59 09/21/20 09:00 Dextrose (Dextrose 50%) 25 ml Q30M PRN IV Hypoglycemia 09/19/20 01:30 12/18/20 01:29 Dextrose (Dextrose 50%) 50 ml Q30M PRN IV Hypoglycemia 09/19/20 01:30 12/18/20 01:29 Gabapentin (Neurontin) 600 mg BID ORAL 09/19/20 09:00 10/19/20 08:59 09/21/20 08:59 Gadobutrol (Gadavist) 7.5 mmol NOW PRN IV Radiology Procedure 09/19/20 10:15 09/23/20 10:14 Hydromorphone HCl (Dilaudid) 1 mg Q6H PRN IVP Moderate Pain (Pain Scale 4-6) 09/19/20 01:30 09/26/20 01:29 Hydromorphone HCl (Dilaudid) 2 mg Q6H PRN IVP Severe Pain (Pain Scale 7-10) 09/19/20 01:30 09/26/20 01:29 09/21/20 09:19 Insulin Aspart (NovoLOG) BEFORE MEALS AND HS SUBQ 09/19/20 06:30 12/18/20 06:29 09/21/20 12:21 Isosorbide Mononitrate (Imdur) 30 mg DAILY ORAL 09/19/20 09:00 10/19/20 08:59 09/21/20 09:01 Ondansetron HCl (Zofran) 4 mg Q4H PRN IVP Nausea & Vomiting 09/19/20 01:30 10/19/20 01:29 Pantoprazole (Protonix) 40 mg DAILY ORAL 09/19/20 09:00 10/19/20 08:59 09/21/20 09:00 Phenytoin (Dilantin) 200 mg Q12HR ORAL 09/19/20 21:00 11/03/20 08:59 09/21/20 09:01 Sodium Chloride 1,000 ml @ 75 mls/hr [id number] IV 09/19/20 02:00 10/19/20 01:59 09/20/20 17:50 Terazosin HCl (Hytrin) 5 mg BEDTIME ORAL 09/19/20 21:00 10/19/20 20:59 09/20/20 20:22 Vancomycin HCl (Vanco pharmacy to dose) 1 ea DAILY PRN MISC Per rx protocol 09/19/20 01:30 10/19/20 01:29 Vancomycin HCl 750 mg/Sodium Chloride 275 ml @ 183.333 mls/hr Q12H IVPB 09/21/20 05:00 09/26/20 04:59 09/21/20 05:10 Zolpidem Tartrate (Ambien) 5 mg BEDTIME PRN ORAL Insomnia 09/19/20 01:45 09/26/20 01:44 09/19/20 20:58 Herminio Boss MD Sep 21, 2020 13:59
[2020-09-21] MEDS: cefTRIAXone 2 GM in D5W 55 ML IVPB SCH (14:21)
--- NOTE | 2020-09-21 14:29 | History & Physical ---
History and Physical History & Physicial Luis Dahl MD Sep 21, 2020 14:29
--- NOTE | 2020-09-21 14:52 | NUR ---
NURSE NOTES:WOUND CARE FOLLOW-UP NOTES:Pt presented on admission with multiple Pressure Injuries. Sacral Pressure Injury resolving(L)1.5cm x (W)0.5cm. Base of wound is pink with maceration. Multiple Ulcerations at base of Scrotum . Wounds are resolving(#1)Full thickness Pressure Injury base of wound resolving. Base of wound is 50% shilpa 50% pink epithelial(L)2cm x (W)1.2cm. Edges are adherent to base of wound. NO exudate noted. (#2)Wound R testicle resolving. [place] epithelial at base of wound. No exudate noted (L)2cm x (W)1.2cm. (#3)Wound that is proximally to above documented wounds is also resolving(L)1cm x (W)1cm. Base of wound is 25% shilpa ,75% surrounding pink epithelial.. L Heel has resolved. Heel is boggy but blanchable and non-tender when palpated . R heel has resolved. R heel is boggy but blanchable and non-tender when palpated. Pt is frequently and heavily incontinent of Bladder. Order obtained from Dr. Narvaez to place urinary pouch to minimize further skin breakdown from incontinence. Pt is well endowed and unable to place urinary pouch. Confirmed with Dr. Narvaez that it is Ok to improvise with Fecal pouch to contain incontinence. Fecal pouch in place and attached to drainage bag. Addendum: 09/21/20 at 1601 by Soila Daniels LVN PLEASE DISREGARD ABOVE NOTES:ENTERED ABOVE NOTES IN EEROR
[2020-09-21 16:00] VITALS: BP 114/70
--- NOTE | 2020-09-21 16:07 | NUR ---
NURSE NOTES:WOUND CARE NOTES:Pt presented on admission with Ulcer lateral L foot(L)0.4cm x (W)1.1cm. Hx of TMA L Foot. Base of wound is shilpa but dry. Edges are dry and peeling. N0 evidence of erythema,induration or fluctuance periwound.L Heel is boggy but blanchable. R Heel is Boggy with Non-Blanchable erythema(L)5cm x (W)6.5cm. Tx.Plan: Wound Care orders as per Surgeon/or Podiatry. Apply Cavilon Skin Barrier to both heels. Cover each Heel with Optifoam drsgs. Change every 7 days and prn. Off-Load heels with Pillow. Reposition at least every 2hours or as tolerated.
[2020-09-21] MEDS: Docusate 100mg cap ORAL SCH (17:16)
--- NOTE | 2020-09-21 17:18 | NUR ---
INSURANCE CLINICALS/REVIEW FAXED TO [facility] #[phone] fax# [phone]
[2020-09-21] MEDS ORDERED: 1/2 NS 1000ml IV ONE (18:31)
[2020-09-21] MEDS ORDERED: Tubing IV Secondary IV ONE (18:31)
[2020-09-21] MEDS ORDERED: NS 275ml ONE (18:31)
--- NOTE | 2020-09-21 19:21 | NUR ---
NURSE HAND-OFF REPORT: Important Events on Shift: No adverse events noted Patient Status: Stable Diet: CCHO med Pending Orders: N Pending Results/Labs: N Pending MD notification: N Latest Vital Signs: Temperature 97.7 , Pulse 80 , B/P 114 /70 , Respiratory Rate 18 , O2 SAT 93 , Room Air, O2 Flow Rate . Vital Sign Comment: EKG Rhythm: Sinus Rhythm Rhythm change?: N MD Notified?: - MD Response: Latest Manzanares Fall Score: 60 Fall Risk: High Risk Safety Measures: Call light Within Reach, Bed Alarm Zone 2, Side Rails Side Rails x3, Bed position Low and Locked. Fall Precautions: Yellow Socks Yellow Gown Patient Fall Education Report given to Fifi MON.
--- NOTE | 2020-09-21 19:30 | NUR ---
NURSE NOTES: Receive a report from ELIESER Kowalski. Round is made. Pt is awake without acute distress. Forgetful but answers and respond promptly. Left foot dressing kept intact. Tolerating pain. Afebrile. IV is running on left FA as ordered. Call light within reach. Will continue to monitor.
[2020-09-21 20:00] VITALS: BP 141/80
[2020-09-21] MEDS: Miralax 17gm pkt ORAL SCH (21:01)
[2020-09-21] MEDS: Atorvastatin 20mg tab ORAL SCH (21:01)
--- NOTE | 2020-09-21 23:30 | NUR ---
NURSE NOTES: Pt tries to get out of bed by himself confused after waking up his sleep. Given orientation. Pt says that he forgot that he was in hospital. Move the pt's room close to nurse station. On bed alarm. Will continue to monitor closely.
[2020-09-22] VITALS: BP 141/81
--- NOTE | 2020-09-22 01:30 | NUR ---
NURSE NOTES: Receive a call from Microbiology lab about blood culture result. Will update MD.
--- NOTE | 2020-09-22 01:44 | History and Physical Report ---
DATE OF ADMISSION: 09/18/2020 CHIEF COMPLAINT: Left foot pain, abnormal labs. HISTORY OF PRESENT ILLNESS: This is a 70-year-old gentleman with past medical history significant for diabetes type 2 poorly controlled, history of CVA with TIA, seizure disorder, patient has a history of peripheral neuropathy in the past status post of left foot TMA with lateral mid foot diabetic ulcer, ex-smoker who presented to the emergency department complaining of left foot pain. Patient described pain as 10/10 in intensity in the left foot. He got wrap dressing on it and wound care at home concerned about the possibility of infection. Patient is noted to have blood glucose that was elevated by EMS; however, patient reported has been compliant with his medication. Denies any fever, chills, chest pain, shortness of breath, nausea, vomiting, or diarrhea. Denies any hemoptysis or hematochezia. Denies any fall or head trauma. Shortly after initial evaluation in the emergency department, patient was noted to have abnormal laboratories with potassium of 5.7, worsening renal function with BUN of 25, creatinine 1.6, glucose level 494. Subsequently, patient was admitted to the hospital with hyperkalemia, hyperglycemia with diabetes uncontrolled with acute kidney injury. PAST MEDICAL HISTORY/PAST SURGICAL HISTORY: As above history of seizure disorder, diabetes type 2, CVA, TIA, severe peripheral vascular disease, status post left foot TMA with lateral mid foot diabetic ulcer. Patient has a history of smoking, ex-smoker. MEDICATIONS: At home please refer to medication reconciliation. ALLERGIES: No known drug allergies. SOCIAL HISTORY: Patient is an ex-smoker. Denies any alcohol abuse or substance abuse. FAMILY HISTORY: Noncontributory. REVIEW OF SYSTEMS: Mostly as above. Denies any dysuria, frequency, or hematuria. Denies any hemoptysis or hematochezia. Denies any suicidal or homicidal ideation. Denies any loss of consciousness. Complained about seizure disorder and difficulty ambulating. PHYSICAL EXAMINATION: VITAL SIGNS: On admission, temperature of 98.6, pulse of 78, respirations 18, blood pressure 164/80. GENERAL: Patient is awake, responsive, in no acute distress. HEAD AND NECK: Pupils are equal and reactive to light. Extraocular movements are intact. Neck was supple. No JVD. LUNGS: Good air entry. No wheezing or rales. HEART: S1, S2. Regular rhythm. No murmurs or gallops. ABDOMEN: Soft, nondistended, nontender. Positive bowel sounds. EXTREMITIES: No cyanosis, clubbing. Left foot has TMA with lateral mid foot ulcer. NEUROLOGIC: Cranial nerves II through XII grossly intact. Motor strength 5/5 in all 4 extremities. Gait is ambulatory with a front wheel walker. RECTAL: Refused and deferred. GENITOURINARY: Refused and deferred. PSYCHIATRIC: Mood and affect is intact. LABORATORY DATA: On admission from the emergency department sodium 135, potassium 5.7, chloride 100, bicarb 30, BUN 25, creatinine 1.6, glucose is 494, calcium is 9.4, magnesium 2.0. Total bilirubin of 0.3, ALT of 12, AST of 25, alkaline phosphatase was 144, albumin is 3.4. WBC of 6, hemoglobin of 11, hematocrit 37, platelets 213. PT of 10, INR 0.9, PTT of 24. UA, +1 protein, +4 glucose. Patient's acetone level is negative. X-ray of the foot noted patient has no acute process, postsurgical changes. Duplex of the lower extremity negative for evidence of lower extremity deep vein thrombosis bilaterally. ASSESSMENT: 1. 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 2. Uncontrolled diabetes type 2. 3. Acute kidney injury. 4. Seizure disorder. 5. Hyperkalemia. 6. Peripheral vascular disease. 7. History of CVA with TIA. 8. Hyponatremia. 9. Hypertension. 10. Dyslipidemia. PLAN: Admit patient to monitored unit. We will follow up with broad-spectrum antibiotics with vancomycin and ceftriaxone. Monitor blood glucose level closely. Code status is Full Code. We follow up with Nephrology consultation with Dr. Babs Najera, Infectious Disease consultation with Dr. Herminio Boss, Wound consultation with Dr. Josafat Narvaez, Pulmonary consultation with Dr. Choudhary, and Podiatry consultation Dr. Mic Rogers. Luis Dahl M.D. DR: LEAH/IKE JOB#: [id number] CC:
[2020-09-22 04:00] VITALS: BP 147/78
[2020-09-22] MEDS: Vancomycin 750mg/NS 275ml IVPB SCH ×4 (05:07→17:00)
[2020-09-22] MEDS: NovoLOG Insulin Flexpen SUBQ SCH ×4 (05:56→20:44)
[2020-09-22 06:58] LABS: BASOPHILS % (AUTO) 0.6 % (0.0-2.0); EOSINOPHILS % (AUTO) 2.3 % (0.0-3.0); HEMATOCRIT 35.8 % (42.0-52.0); HEMOGLOBIN 11.3 G/DL (14.2-18.0); LYMPHOCYTES % (AUTO) 18.3 % (20.0-45.0); MEAN CORPUSCULAR VOLUME 85 FL (80-99); MONOCYTES % (AUTO) 7.6 % (1.0-10.0); NEUTROPHILS % (AUTO) 71.3 % (45.0-75.0); PLATELET COUNT 176 K/UL (150-450); RED BLOOD COUNT 4.19 M/UL (4.70-6.10); RED CELL DISTRIBUTION WIDTH 13.5 % (11.6-14.8); WHITE BLOOD COUNT 6.5 K/UL (4.8-10.8)
--- NOTE | 2020-09-22 07:14 | NUR ---
NURSE HAND-OFF REPORT: Important Events on Shift: Episode of confusion. Pain on left foot--> pain medication x2. Dressing kept intact. Patient Status: [] Diet: [CCHO M] Pending Orders: [] Pending Results/Labs:[] Pending MD notification:[Blood culture result] Latest Vital Signs: Temperature 98.7 , Pulse 73 , B/P 147 /78 , Respiratory Rate 18 , O2 SAT 97 , Room Air, O2 Flow Rate . Vital Sign Comment: [] EKG Rhythm: Sinus Rhythm Rhythm change?: N MD Notified?: - MD Response: Latest Manzanares Fall Score: 60 Fall Risk: High Risk Safety Measures: Call light Within Reach, Bed Alarm Zone 1, Side Rails Side Rails x3, Bed position Low and Locked. Fall Precautions: Yellow Socks Yellow Gown Patient Fall Education Report given to ELIESER Kowalski.
--- NOTE | 2020-09-22 07:20 | NUR ---
NURSE NOTES: Report received from [facility] RN. Patient seen on rounds, awake and up in bed eating breakfast. Not in distress, no complaints of pain, nurse reports given PRN pain meds via IV with relief of pain over left foot. PIV on left forearm patent and infusing 1/2 NS at 75 cc/hr. Bed low and locked, siderails up x2, call light placed within reach and instructed to call nurse for assistance. Will continue to monitor.
[2020-09-22 08:00] VITALS: BP 125/83
--- NOTE | 2020-09-22 08:30 | NUR ---
CASE MANAGEMENT:REVIEW 09/22/20 SI: POSSIBLE LEFT FOOT OSTEO. UNCONTROLLED DM 98.7 79 18 147/78 97% ON RA H/H-11.3/35.8 GLUCOSE+242 IS: IV ROCEPHIN Q24 IV VANCOMYCIN Q24 IVF@ 75/HR DILANTIN PO Q12 LIPITOR PO QHS HYTRIN PO QHS IMDUR PO QD NEURONTIN PO BID PLAVIX PO QD COREG PO BID ASA PO QD IV DILAUDID Q6HRS PRN : TELEMETRY STATUS DCP: FROM HOME PLAN:
[2020-09-22] MEDS: Docusate 100mg cap ORAL SCH ×2 (08:41→17:05)
[2020-09-22] MEDS: Imdur 30mg tab ORAL SCH (08:41)
[2020-09-22] MEDS: Phenytoin 100mg cap ORAL SCH ×2 (08:48→20:43)
[2020-09-22] MEDS: Aspirin EC 81mg tab ORAL SCH (08:49)
[2020-09-22] MEDS: Carvedilol 6.25mg Tab ORAL SCH ×2 (08:49→17:05)
--- NOTE | 2020-09-22 09:39 | NUR ---
NURSE NOTES: Dr. Najera informed of Mag results: 1.7. Received orders to administer Mg 2gm IV. Orders noted and carried out.
--- NOTE | 2020-09-22 11:10 | Surgery Progress Note ---
Surgery Progress Note Subjective Symptoms: improved, tolerating diet, passing flatus Objective Last 24 Hour Vital Signs Date Time Temp Pulse Resp B/P (MAP) Pulse Ox O2 Delivery O2 Flow Rate FiO2 09/22/20 09:00 Room Air 09/22/20 08:49 107 125/83 09/22/20 08:41 125/83 09/22/20 08:00 97.7 107 18 125/83 (97) 92 09/22/20 08:00 91 09/22/20 04:00 73 09/22/20 04:00 98.7 79 18 147/78 (101) 97 09/22/20 00:00 75 09/22/20 00:00 98.0 79 18 141/81 (101) 93 09/21/20 21:00 Room Air 09/21/20 20:00 97.3 66 18 141/80 (100) 93 09/21/20 20:00 66 09/21/20 17:15 80 114/70 09/21/20 16:00 80 09/21/20 16:00 97.7 95 18 114/70 (85) 93 09/21/20 12:00 98.9 104 17 107/77 (87) 92 09/21/20 12:00 106 I&O Intake and Output 09/21/20 09/22/20 19:00 07:00 Intake Total 1463.333 ml 400 ml Output Total 2000 ml Balance 1463.333 ml -1600 ml Intake Oral 400 ml 250 ml IV Total 1063.333 ml 150 ml Output Urine Total 2000 ml Dressing: dry Wound: clean Cardiovascular: RSR Respiratory: clear Abdomen: soft, flat, non-tender, present bowel sounds, non-distended Extremities: edema, no tenderness, no cyanosis, pulses, other Laboratory Tests Test 09/21/20 11:54 09/21/20 16:24 09/21/20 21:49 09/22/20 05:50 POC Whole Blood Glucose 334 MG/DL (74-106) H 266 MG/DL (74-106) H 223 MG/DL (74-106) H White Blood Count 6.5 K/UL (4.8-10.8) Red Blood Count 4.19 M/UL (4.70-6.10) L Hemoglobin 11.3 G/DL (14.2-18.0) L Hematocrit 35.8 % (42.0-52.0) L Mean Corpuscular Volume 85 FL (80-99) Mean Corpuscular Hemoglobin 26.9 PG (27.0-31.0) L Mean Corpuscular Hemoglobin Concent 31.5 G/DL (32.0-36.0) L Red Cell Distribution Width 13.5 % (11.6-14.8) Platelet Count 176 K/UL (150-450) Mean Platelet Volume 7.7 FL (6.5-10.1) Neutrophils (%) (Auto) 71.3 % (45.0-75.0) Lymphocytes (%) (Auto) 18.3 % (20.0-45.0) L Monocytes (%) (Auto) 7.6 % (1.0-10.0) Eosinophils (%) (Auto) 2.3 % (0.0-3.0) Basophils (%) (Auto) 0.6 % (0.0-2.0) Phosphorus Level 3.2 MG/DL (2.5-4.9) Magnesium Level 1.7 MG/DL (1.8-2.4) L Test 09/22/20 05:52 POC Whole Blood Glucose 242 MG/DL (74-106) H Plan Problems: (1) Hyperkalemia (2) Cellulitis Assessment & Plan: 70-year-old male presented with left foot cellulitis. Prior TMA. Lateral aspect a 1 cm dehiscence identified opening no purulent drainage some serous drainage. Local wound care provided. Edema identified. Vascular imaging pending. Podiatry eval. Okay for diet. Continue antibiotics. No acute surgical invention. No abscess identified. Plainly cellulitis. Will follow with recommendations thank you for let me participate in patient's care Pt presented on admission with Ulcer lateral L foot(L)0.4cm x (W)1.1cm. Hx of TMA L Foot. Base of wound is shilpa but dry. Edges are dry and peeling. N0 evidence of erythema,induration or fluctuance periwound.L Heel is boggy but blanchable. R Heel is Boggy with Non-Blanchable erythema(L)5cm x (W)6.5cm. Tx.Plan: Apply Cavilon Skin Barrier to both heels. Cover each Heel with Optifoam drsgs. Change every 7 days and prn. Off-Load heels with Pillow. Reposition at least every 2hours or as tolerated. A marker arrington a lateral soft tissue ulcer near the distal stump. Patient is status post transmetatarsal amputation. There is some susceptibility artifact from a wire located near the tip of the fifth metatarsal stump. There is some increased STIR signal in the fifth metatarsal stump on the coronal images, equivocally visualized on one of 2 sagittal STIR sequences, not corroborated on T1 sequences. This was equivocally evident previously. Well-circumscribed high STIR signal lesions of the talus and the calcaneus are again demonstrated and appear grossly unchanged. Questionable similar lesions are also seen in the distal tibia. As on the prior exam, there is considerable soft tissue edema no definite drainable fluid collection, although evaluation for such is extremely limited. Impression: Extremely limited borderline nondiagnostic exam for reasons yane cribed above Evidence of prior transmetatarsal amputation, also previously described Equivocal focal high STIR signal within the fifth metatarsal stump, could represent a small focus of osteomyelitis but it is not corroborated on the T2-weighted images. This is also demonstrated on the previous exam. If there is high clinical suspicion, bone scan may be useful to better characterize Extensive soft tissue edema. 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 Bilaterally, grayscale and duplex images demonstrate no evidence of intraluminal thrombus. Normal phasic Doppler waveforms, demonstrating normal augmentation response and no evidence of valvular insufficiency. Greater saphenous vein(s) and tibial veins are patent. Normal compressibility. Impression: Negative for evidence of lower extremity deep venous thrombosis bilaterally Again demonstrated is prior transmetatarsal amputation. Amputation margins appear clean. Wire is seen adjacent to the fifth metatarsal stump. Or osteolytic lesion demonstrated. No acute fracture. No dislocation. No soft tissue gas. No significant interim change Impression: No acute process (3) Renal insufficiency (4) Diabetic foot ulcer (5) Uncontrolled diabetes mellitus (6) Osteomyelitis of ankle or foot, acute (7) Epileptic seizure, generalized (8) Diabetes mellitus (9) CAD (coronary artery disease) (10) Cardiomyopathy (11) PVD (peripheral vascular disease) (12) History of CVA (cerebrovascular accident) Josafat Narvaez Sep 22, 2020 11:10
--- NOTE | 2020-09-22 11:47 | Infectious Diseases Prog Note ---
Assessment/Plan Assessment/Plan IMPRESSION: 1. Diabetic foot ulcer, cellulitis, ?osteomyelitis. 2. Diabetes mellitus with hyperglycemia. 3. Hyperkalemia. 4. Acute renal failure. 5. Peripheral vascular disease. 6. Lung infiltrates, ? pneumonia RECOMMENDATION: Continue IV vancomycin & ceftriaxone. Inconclusive MRI of the foot because of motion artifact Bone scan ordered Rapid COVID19 test: negative Subjective ROS Limited/Unobtainable: No Respiratory: Reports: no symptoms Gastrointestinal/Abdominal: Reports: no symptoms Genitourinary: Reports: no symptoms Musculoskeletal: Reports: pain, other - left foot Allergies: Coded Allergies: No Known Allergies (Unverified , 05/07/14) Objective Last 24 Hour Vital Signs Date Time Temp Pulse Resp B/P (MAP) Pulse Ox O2 Delivery O2 Flow Rate FiO2 09/22/20 09:00 Room Air 09/22/20 08:49 107 125/83 09/22/20 08:41 125/83 09/22/20 08:00 97.7 107 18 125/83 (97) 92 09/22/20 08:00 91 09/22/20 04:00 73 09/22/20 04:00 98.7 79 18 147/78 (101) 97 09/22/20 00:00 75 09/22/20 00:00 98.0 79 18 141/81 (101) 93 09/21/20 21:00 Room Air 09/21/20 20:00 97.3 66 18 141/80 (100) 93 09/21/20 20:00 66 09/21/20 17:15 80 114/70 09/21/20 16:00 80 09/21/20 16:00 97.7 95 18 114/70 (85) 93 09/21/20 12:00 98.9 104 17 107/77 (87) 92 09/21/20 12:00 106 Height (Feet): 6 Height (Inches): 0.00 Weight (Pounds): 150 HEENT: mucous membranes moist Respiratory/Chest: lungs clear Cardiovascular: normal rate Abdomen: soft, non tender Extremities: no edema Skin: ulcers, other - left lateral foot Neurologic/Psychiatric: alert, responsive Microbiology Date/Time Source Procedure Growth Status 09/20/20 16:40 Nasopharynx SARS-CoV-2 Antigen (Rapid)(TAB) - Final Complete Laboratory Tests Test 09/21/20 11:54 09/21/20 16:24 09/21/20 21:49 09/22/20 05:50 POC Whole Blood Glucose 334 MG/DL (74-106) H 266 MG/DL (74-106) H 223 MG/DL (74-106) H White Blood Count 6.5 K/UL (4.8-10.8) Red Blood Count 4.19 M/UL (4.70-6.10) L Hemoglobin 11.3 G/DL (14.2-18.0) L Hematocrit 35.8 % (42.0-52.0) L Mean Corpuscular Volume 85 FL (80-99) Mean Corpuscular Hemoglobin 26.9 PG (27.0-31.0) L Mean Corpuscular Hemoglobin Concent 31.5 G/DL (32.0-36.0) L Red Cell Distribution Width 13.5 % (11.6-14.8) Platelet Count 176 K/UL (150-450) Mean Platelet Volume 7.7 FL (6.5-10.1) Neutrophils (%) (Auto) 71.3 % (45.0-75.0) Lymphocytes (%) (Auto) 18.3 % (20.0-45.0) L Monocytes (%) (Auto) 7.6 % (1.0-10.0) Eosinophils (%) (Auto) 2.3 % (0.0-3.0) Basophils (%) (Auto) 0.6 % (0.0-2.0) Phosphorus Level 3.2 MG/DL (2.5-4.9) Magnesium Level 1.7 MG/DL (1.8-2.4) L Test 09/22/20 05:52 09/22/20 11:44 POC Whole Blood Glucose 242 MG/DL (74-106) H 272 MG/DL (74-106) H Current Medications Medications (Trade) Dose Ordered Sig/Mell Route PRN Reason Start Time Stop Time Status Last Admin Dose Admin Acetaminophen/ Hydrocodone Bitart ([place] 5/325) 1 tab Q6H PRN ORAL Mild Pain (Pain Scale 1-3) 09/19/20 01:30 09/26/20 01:29 Aspirin (Ecotrin) 81 mg DAILY ORAL 09/19/20 09:00 11/03/20 08:59 09/22/20 08:49 Atorvastatin Calcium (Lipitor) 20 mg BEDTIME ORAL 09/19/20 21:00 12/18/20 20:59 09/21/20 21:01 Carvedilol (Coreg) 6.25 mg BID ORAL 09/19/20 09:00 10/19/20 08:59 09/22/20 08:49 Ceftriaxone Sodium 2 gm/ Dextrose 55 ml @ 110 mls/hr Q24H IVPB 09/19/20 13:00 09/26/20 12:59 09/21/20 14:21 Clonidine HCl (Catapres Tab) 0.1 mg Q4H PRN ORAL SBP>160MMHG 09/19/20 01:45 12/18/20 01:44 09/21/20 05:11 Clopidogrel Bisulfate (Plavix) 75 mg DAILY ORAL 09/19/20 09:00 10/19/20 08:59 09/22/20 08:40 Dextrose (Dextrose 50%) 25 ml Q30M PRN IV Hypoglycemia 09/19/20 01:30 12/18/20 01:29 Dextrose (Dextrose 50%) 50 ml Q30M PRN IV Hypoglycemia 09/19/20 01:30 12/18/20 01:29 Docusate Sodium (Colace) 100 mg TWICE A DAY ORAL 09/21/20 18:00 10/21/20 17:59 09/22/20 08:41 Gabapentin (Neurontin) 600 mg BID ORAL 09/19/20 09:00 10/19/20 08:59 09/22/20 08:40 Gadobutrol (Gadavist) 7.5 mmol NOW PRN IV Radiology Procedure 09/19/20 10:15 09/23/20 10:14 Hydromorphone HCl (Dilaudid) 1 mg Q6H PRN IVP Moderate Pain (Pain Scale 4-6) 09/19/20 01:30 09/26/20 01:29 Hydromorphone HCl (Dilaudid) 2 mg Q6H PRN IVP Severe Pain (Pain Scale 7-10) 09/19/20 01:30 09/26/20 01:29 09/22/20 06:49 Insulin Aspart (NovoLOG) BEFORE MEALS AND HS SUBQ 09/19/20 06:30 12/18/20 06:29 09/22/20 05:56 Isosorbide Mononitrate (Imdur) 30 mg DAILY ORAL 09/19/20 09:00 10/19/20 08:59 09/22/20 08:41 Magnesium Sulfate 100 ml @ 100 mls/hr Q1H IVPB 09/22/20 10:30 09/22/20 12:29 09/22/20 11:40 Ondansetron HCl (Zofran) 4 mg Q4H PRN IVP Nausea & Vomiting 09/19/20 01:30 10/19/20 01:29 Pantoprazole (Protonix) 40 mg DAILY ORAL 09/19/20 09:00 10/19/20 08:59 09/22/20 08:49 Phenytoin (Dilantin) 200 mg Q12HR ORAL 09/19/20 21:00 11/03/20 08:59 09/22/20 08:48 Polyethylene Glycol (Miralax) 17 gm BEDTIME ORAL 09/21/20 21:00 10/21/20 20:59 09/21/20 21:01 Sodium Chloride 1,000 ml @ 75 mls/hr [id number] IV 09/19/20 02:00 10/19/20 01:59 09/22/20 06:50 Terazosin HCl (Hytrin) 5 mg BEDTIME ORAL 09/19/20 21:00 10/19/20 20:59 09/21/20 21:01 Vancomycin HCl (Vanco pharmacy to dose) 1 ea DAILY PRN MISC Per rx protocol 09/19/20 01:30 10/19/20 01:29 Vancomycin HCl 750 mg/Sodium Chloride 275 ml @ 183.333 mls/hr Q12H IVPB 09/21/20 05:00 09/26/20 04:59 09/22/20 05:07 Zolpidem Tartrate (Ambien) 5 mg BEDTIME PRN ORAL Insomnia 09/19/20 01:45 09/26/20 01:44 09/19/20 20:58 Herminio Boss MD Sep 22, 2020 11:47
[2020-09-22 12:00] VITALS: BP 152/81
--- NOTE | 2020-09-22 12:20 | Pulmonology Progress Note ---
Subjective ROS Limited/Unobtainable: No Interval Events: None major reported per nursing Constitutional: Reports: no symptoms HEENT: Repors: no symptoms Respiratory: Reports: no symptoms Cardiovascular: Reports: no symptoms Gastrointestinal/Abdominal: Reports: no symptoms Musculoskeletal: Reports: pain, other - left foot Allergies: Coded Allergies: No Known Allergies (Unverified , 05/07/14) Objective Last 24 Hour Vital Signs Date Time Temp Pulse Resp B/P (MAP) Pulse Ox O2 Delivery O2 Flow Rate FiO2 09/22/20 09:00 Room Air 09/22/20 08:49 107 125/83 09/22/20 08:41 125/83 09/22/20 08:00 97.7 107 18 125/83 (97) 92 09/22/20 08:00 91 09/22/20 04:00 73 09/22/20 04:00 98.7 79 18 147/78 (101) 97 09/22/20 00:00 75 09/22/20 00:00 98.0 79 18 141/81 (101) 93 09/21/20 21:00 Room Air 09/21/20 20:00 97.3 66 18 141/80 (100) 93 09/21/20 20:00 66 09/21/20 17:15 80 114/70 09/21/20 16:00 80 09/21/20 16:00 97.7 95 18 114/70 (85) 93 Intake and Output 09/21/20 09/22/20 19:00 07:00 Intake Total 1463.333 ml 400 ml Output Total 2000 ml Balance 1463.333 ml -1600 ml Intake Oral 400 ml 250 ml IV Total 1063.333 ml 150 ml Output Urine Total 2000 ml General Appearance: no acute distress HEENT: atraumatic Respiratory: lungs clear Cardiovascular: normal rate Abdomen: soft, non tender Extremities: other - left foot toes amputated Skin: ulcers - lateral aspect of L foot Microbiology Date/Time Source Procedure Growth Status 09/20/20 16:40 Nasopharynx SARS-CoV-2 Antigen (Rapid)(TAB) - Final Complete Laboratory Tests 09/21/20 16:24: POC Whole Blood Glucose 266H 09/21/20 21:49: POC Whole Blood Glucose 223H 09/22/20 05:50: White Blood Count 6.5, Red Blood Count 4.19L, Hemoglobin 11.3L, Hematocrit 35.8L , Mean Corpuscular Volume 85, Mean Corpuscular Hemoglobin 26.9L, Mean Corpuscular Hemoglobin Concent 31.5L, Red Cell Distribution Width 13.5, Platelet Count 176, Mean Platelet Volume 7.7, Neutrophils (%) (Auto) 71.3, Lymphocytes (%) (Auto) 18.3L, Monocytes (%) (Auto) 7.6, Eosinophils (%) (Auto) 2.3, Basophils (%) (Auto) 0.6, Phosphorus Level 3.2, Magnesium Level 1.7L 09/22/20 05:52: POC Whole Blood Glucose 242H 09/22/20 11:44: POC Whole Blood Glucose 272H Current Medications Medications (Trade) Dose Ordered Sig/Mell Route PRN Reason Start Time Stop Time Status Last Admin Dose Admin Acetaminophen/ Hydrocodone Bitart ([place] 5/325) 1 tab Q6H PRN ORAL Mild Pain (Pain Scale 1-3) 09/19/20 01:30 09/26/20 01:29 Aspirin (Ecotrin) 81 mg DAILY ORAL 09/19/20 09:00 11/03/20 08:59 09/22/20 08:49 Atorvastatin Calcium (Lipitor) 20 mg BEDTIME ORAL 09/19/20 21:00 12/18/20 20:59 09/21/20 21:01 Carvedilol (Coreg) 6.25 mg BID ORAL 09/19/20 09:00 10/19/20 08:59 09/22/20 08:49 Ceftriaxone Sodium 2 gm/ Dextrose 55 ml @ 110 mls/hr Q24H IVPB 09/19/20 13:00 09/26/20 12:59 09/21/20 14:21 Clonidine HCl (Catapres Tab) 0.1 mg Q4H PRN ORAL SBP>160MMHG 09/19/20 01:45 12/18/20 01:44 09/21/20 05:11 Clopidogrel Bisulfate (Plavix) 75 mg DAILY ORAL 09/19/20 09:00 10/19/20 08:59 09/22/20 08:40 Dextrose (Dextrose 50%) 25 ml Q30M PRN IV Hypoglycemia 09/19/20 01:30 12/18/20 01:29 Dextrose (Dextrose 50%) 50 ml Q30M PRN IV Hypoglycemia 09/19/20 01:30 12/18/20 01:29 Docusate Sodium (Colace) 100 mg TWICE A DAY ORAL 09/21/20 18:00 10/21/20 17:59 09/22/20 08:41 Gabapentin (Neurontin) 600 mg BID ORAL 09/19/20 09:00 10/19/20 08:59 09/22/20 08:40 Gadobutrol (Gadavist) 7.5 mmol NOW PRN IV Radiology Procedure 09/19/20 10:15 09/23/20 10:14 Hydromorphone HCl (Dilaudid) 1 mg Q6H PRN IVP Moderate Pain (Pain Scale 4-6) 09/19/20 01:30 09/26/20 01:29 Hydromorphone HCl (Dilaudid) 2 mg Q6H PRN IVP Severe Pain (Pain Scale 7-10) 09/19/20 01:30 09/26/20 01:29 09/22/20 06:49 Insulin Aspart (NovoLOG) BEFORE MEALS AND HS SUBQ 09/19/20 06:30 12/18/20 06:29 09/22/20 11:47 Isosorbide Mononitrate (Imdur) 30 mg DAILY ORAL 09/19/20 09:00 10/19/20 08:59 09/22/20 08:41 Magnesium Sulfate 100 ml @ 100 mls/hr Q1H IVPB 09/22/20 10:30 09/22/20 12:29 09/22/20 11:40 Ondansetron HCl (Zofran) 4 mg Q4H PRN IVP Nausea & Vomiting 09/19/20 01:30 10/19/20 01:29 Pantoprazole (Protonix) 40 mg DAILY ORAL 09/19/20 09:00 10/19/20 08:59 09/22/20 08:49 Phenytoin (Dilantin) 200 mg Q12HR ORAL 09/19/20 21:00 11/03/20 08:59 09/22/20 08:48 Polyethylene Glycol (Miralax) 17 gm BEDTIME ORAL 09/21/20 21:00 10/21/20 20:59 09/21/20 21:01 Sodium Chloride 1,000 ml @ 75 mls/hr [id number] IV 09/19/20 02:00 10/19/20 01:59 09/22/20 06:50 Terazosin HCl (Hytrin) 5 mg BEDTIME ORAL 09/19/20 21:00 10/19/20 20:59 09/21/20 21:01 Vancomycin HCl (Vanco pharmacy to dose) 1 ea DAILY PRN MISC Per rx protocol 09/19/20 01:30 10/19/20 01:29 Vancomycin HCl 750 mg/Sodium Chloride 275 ml @ 183.333 mls/hr Q12H IVPB 09/21/20 05:00 09/26/20 04:59 09/22/20 05:07 Zolpidem Tartrate (Ambien) 5 mg BEDTIME PRN ORAL Insomnia 09/19/20 01:45 09/26/20 01:44 09/19/20 20:58 Assessment/Plan Assessment/Plan 1. Diabetic foot ulcer - MRI of the L foot (09/20) suspicious for osteomyelitis -> f/u bone scan ordered -Wound care following 2. Uncontrolled diabetes mellitus with hyperglycemia -BG control -A1c 12.2 3. Hyperkalemia - resolved 4. Acute renal failure - per primary MD 5 .History of seizure -Continue Dilantin 6. Risk of aspiration pneumonia given history of seizure -Monitor for seizure -Monitor for fever 7. Leukocytosis -On antibiotics per ID 8. ex-smoker The care for this patient was discussed with my supervising physician. Time spent for this case was approximately 31 minutes. Asher Parikh Sep 22, 2020 12:20
--- NOTE | 2020-09-22 12:40 | Nephrology Progress Note ---
Assessment/Plan Plan #left foot osteo #r/o sepsis #hyponatremia #hyperkalemia #JASMIN #DM #HTN #HLD - DC IVF - plan for bone scan - IV antibiotics - pain control - ID eval - podiatry eval - surgery eval - resume home meds - monitor BG - hold metformin - foot MRI noted -time spent 65 min Subjective ROS Limited/Unobtainable: No Constitutional: Reports: weakness HEENT: Denies: no symptoms, eye pain, blurred vision, tearing, double vision, ear pain, ear discharge, nose pain, nose congestion, throat pain, throat swelling, mouth pain, mouth swelling, other Genitourinary: Denies: no symptoms, burning, discharge, frequency, flank pain, hematuria, incontinence, pain, urgency, other Neurologic/Psychiatric: Denies: no symptoms, anxiety, depressed, emotional problems, headache, numbness, paresthesia, pre-existing deficit, seizure, tingling, tremors, weakness, other Subjective Impression: Extremely limited borderline nondiagnostic exam for reasons described above Evidence of prior transmetatarsal amputation, also previously described Equivocal focal high STIR signal within the fifth metatarsal stump, could represent a small focus of osteomyelitis but it is not corroborated on the T2-weighted images. This is also demonstrated on the previous exam. If there is high clinical suspicion, bone scan may be useful to better characterize Extensive soft tissue edema. 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 Objective Objective Last 24 Hour Vital Signs Date Time Temp Pulse Resp B/P (MAP) Pulse Ox O2 Delivery O2 Flow Rate FiO2 09/22/20 09:00 Room Air 09/22/20 08:49 107 125/83 09/22/20 08:41 125/83 09/22/20 08:00 97.7 107 18 125/83 (97) 92 09/22/20 08:00 91 09/22/20 04:00 73 09/22/20 04:00 98.7 79 18 147/78 (101) 97 09/22/20 00:00 75 09/22/20 00:00 98.0 79 18 141/81 (101) 93 09/21/20 21:00 Room Air 09/21/20 20:00 97.3 66 18 141/80 (100) 93 09/21/20 20:00 66 09/21/20 17:15 80 114/70 09/21/20 16:00 80 09/21/20 16:00 97.7 95 18 114/70 (85) 93 Intake and Output 09/21/20 09/22/20 19:00 07:00 Intake Total 1463.333 ml 400 ml Output Total 2000 ml Balance 1463.333 ml -1600 ml Intake Oral 400 ml 250 ml IV Total 1063.333 ml 150 ml Output Urine Total 2000 ml Laboratory Tests 09/21/20 16:24: POC Whole Blood Glucose 266H 09/21/20 21:49: POC Whole Blood Glucose 223H 09/22/20 05:50: White Blood Count 6.5, Red Blood Count 4.19L, Hemoglobin 11.3L, Hematocrit 35.8L , Mean Corpuscular Volume 85, Mean Corpuscular Hemoglobin 26.9L, Mean Corpuscular Hemoglobin Concent 31.5L, Red Cell Distribution Width 13.5, Platelet Count 176, Mean Platelet Volume 7.7, Neutrophils (%) (Auto) 71.3, Lymphocytes (%) (Auto) 18.3L, Monocytes (%) (Auto) 7.6, Eosinophils (%) (Auto) 2.3, Basophils (%) (Auto) 0.6, Phosphorus Level 3.2, Magnesium Level 1.7L 09/22/20 05:52: POC Whole Blood Glucose 242H 09/22/20 11:44: POC Whole Blood Glucose 272H Height (Feet): 6 Height (Inches): 0.00 Weight (Pounds): 150 Objective General: Patient is laying in bed with normal work of breathing on room air HEENT: Head exam reveals that the head is normocephalic, atraumatic without deformity or unusual swelling. Pupils are PERRLA. CHEST AND LUNGS: Reveals clear, normal, symmetrical breath sounds with no adventitious sounds. CARDIOVASCULAR: Reveals normal S1, S2 without murmurs, rubs, or clicks. ABDOMEN: Soft with no tenderness or organomegaly. RECTAL: Deferred. MUSCULOSKELETAL: There is no tenderness to palpation. Range of motion is normal. SKIN: All left foot toes amputated. Small chronic wound on the lateral aspect of left foot without erythema or induration. NEUROLOGICAL: Alert and oriented x3 , nonfocal Babs Najera M.D. Sep 22, 2020 12:39
--- NOTE | 2020-09-22 13:12 | Internal Med Progress Note ---
Subjective Physician Name Luis Dahl Attending Physician Babs Najera M.D. Current Medications Medications (Trade) Dose Ordered Sig/Mell Route PRN Reason Start Time Stop Time Status Last Admin Dose Admin Acetaminophen/ Hydrocodone Bitart ([place] 5/325) 1 tab Q6H PRN ORAL Mild Pain (Pain Scale 1-3) 09/19/20 01:30 09/26/20 01:29 Aspirin (Ecotrin) 81 mg DAILY ORAL 09/19/20 09:00 11/03/20 08:59 09/22/20 08:49 Atorvastatin Calcium (Lipitor) 20 mg BEDTIME ORAL 09/19/20 21:00 12/18/20 20:59 09/21/20 21:01 Carvedilol (Coreg) 6.25 mg BID ORAL 09/19/20 09:00 10/19/20 08:59 09/22/20 08:49 Ceftriaxone Sodium 2 gm/ Dextrose 55 ml @ 110 mls/hr Q24H IVPB 09/19/20 13:00 09/26/20 12:59 09/21/20 14:21 Clonidine HCl (Catapres Tab) 0.1 mg Q4H PRN ORAL SBP>160MMHG 09/19/20 01:45 12/18/20 01:44 09/21/20 05:11 Clopidogrel Bisulfate (Plavix) 75 mg DAILY ORAL 09/19/20 09:00 10/19/20 08:59 09/22/20 08:40 Dextrose (Dextrose 50%) 25 ml Q30M PRN IV Hypoglycemia 09/19/20 01:30 12/18/20 01:29 Dextrose (Dextrose 50%) 50 ml Q30M PRN IV Hypoglycemia 09/19/20 01:30 12/18/20 01:29 Docusate Sodium (Colace) 100 mg TWICE A DAY ORAL 09/21/20 18:00 10/21/20 17:59 09/22/20 08:41 Gabapentin (Neurontin) 600 mg BID ORAL 09/19/20 09:00 10/19/20 08:59 09/22/20 08:40 Gadobutrol (Gadavist) 7.5 mmol NOW PRN IV Radiology Procedure 09/19/20 10:15 09/23/20 10:14 Hydromorphone HCl (Dilaudid) 1 mg Q6H PRN IVP Moderate Pain (Pain Scale 4-6) 09/19/20 01:30 09/26/20 01:29 Hydromorphone HCl (Dilaudid) 2 mg Q6H PRN IVP Severe Pain (Pain Scale 7-10) 09/19/20 01:30 09/26/20 01:29 09/22/20 06:49 Insulin Aspart (NovoLOG) BEFORE MEALS AND HS SUBQ 09/19/20 06:30 12/18/20 06:29 09/22/20 11:47 Isosorbide Mononitrate (Imdur) 30 mg DAILY ORAL 09/19/20 09:00 10/19/20 08:59 09/22/20 08:41 Ondansetron HCl (Zofran) 4 mg Q4H PRN IVP Nausea & Vomiting 09/19/20 01:30 10/19/20 01:29 Pantoprazole (Protonix) 40 mg DAILY ORAL 09/19/20 09:00 10/19/20 08:59 09/22/20 08:49 Phenytoin (Dilantin) 200 mg Q12HR ORAL 09/19/20 21:00 11/03/20 08:59 09/22/20 08:48 Polyethylene Glycol (Miralax) 17 gm BEDTIME ORAL 09/21/20 21:00 10/21/20 20:59 09/21/20 21:01 Terazosin HCl (Hytrin) 5 mg BEDTIME ORAL 09/19/20 21:00 10/19/20 20:59 09/21/20 21:01 Vancomycin HCl (Vanco pharmacy to dose) 1 ea DAILY PRN MISC Per rx protocol 09/19/20 01:30 10/19/20 01:29 Vancomycin HCl 750 mg/Sodium Chloride 275 ml @ 183.333 mls/hr Q12H IVPB 09/21/20 05:00 09/26/20 04:59 09/22/20 05:07 Zolpidem Tartrate (Ambien) 5 mg BEDTIME PRN ORAL Insomnia 09/19/20 01:45 09/26/20 01:44 09/19/20 20:58 Allergies: Coded Allergies: No Known Allergies (Unverified , 05/07/14) Subjective Awake, alert, responsive, denies any chest pain or shortness of breath, feeling better. WBC: 6.5 Objective Last Vital Signs Date Time Temp Pulse Resp B/P (MAP) Pulse Ox O2 Delivery O2 Flow Rate FiO2 09/22/20 09:00 Room Air 09/22/20 08:49 107 125/83 09/22/20 08:00 97.7 18 92 Laboratory Tests Test 09/21/20 16:24 09/21/20 21:49 09/22/20 05:50 09/22/20 05:52 POC Whole Blood Glucose 266 MG/DL (74-106) H 223 MG/DL (74-106) H 242 MG/DL (74-106) H White Blood Count 6.5 K/UL (4.8-10.8) Red Blood Count 4.19 M/UL (4.70-6.10) L Hemoglobin 11.3 G/DL (14.2-18.0) L Hematocrit 35.8 % (42.0-52.0) L Mean Corpuscular Volume 85 FL (80-99) Mean Corpuscular Hemoglobin 26.9 PG (27.0-31.0) L Mean Corpuscular Hemoglobin Concent 31.5 G/DL (32.0-36.0) L Red Cell Distribution Width 13.5 % (11.6-14.8) Platelet Count 176 K/UL (150-450) Mean Platelet Volume 7.7 FL (6.5-10.1) Neutrophils (%) (Auto) 71.3 % (45.0-75.0) Lymphocytes (%) (Auto) 18.3 % (20.0-45.0) L Monocytes (%) (Auto) 7.6 % (1.0-10.0) Eosinophils (%) (Auto) 2.3 % (0.0-3.0) Basophils (%) (Auto) 0.6 % (0.0-2.0) Phosphorus Level 3.2 MG/DL (2.5-4.9) Magnesium Level 1.7 MG/DL (1.8-2.4) L Test 09/22/20 11:44 POC Whole Blood Glucose 272 MG/DL (74-106) H Microbiology Date/Time Source Procedure Growth Status 09/20/20 16:40 Nasopharynx SARS-CoV-2 Antigen (Rapid)(TAB) - Final Complete Intake and Output 09/21/20 09/22/20 19:00 07:00 Intake Total 1463.333 ml 400 ml Output Total 2000 ml Balance 1463.333 ml -1600 ml Intake Oral 400 ml 250 ml IV Total 1063.333 ml 150 ml Output Urine Total 2000 ml Objective GENERAL: Awake, responsive, in no acute distress. HEAD AND NECK: Pupils are equal and reactive to light. Extraocular movements are intact. Neck was supple. No JVD. LUNGS: Good air entry. No wheezing or rales. HEART: S1, S2. Regular rhythm. No murmurs or gallops. ABDOMEN: Soft, nondistended, nontender. Positive bowel sounds. EXTREMITIES: No cyanosis, clubbing. Left foot has TMA with lateral mid foot ulcer. NEUROLOGIC: Cranial nerves II through XII grossly intact. Motor strength 5/5 in all 4 extremities. Gait is ambulatory with a front wheel walker. RECTAL: Refused and deferred. GENITOURINARY: Refused and deferred. PSYCHIATRIC: Mood and affect is intact. Assessment/Plan Assessment/Plan ASSESSMENT: 1. 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 2. Uncontrolled diabetes type 2. 3. Acute kidney injury. 4. Seizure disorder. 5. Hyperkalemia. 6. Peripheral vascular disease. 7. History of CVA with TIA. 8. Hyponatremia. 9. Hypertension. 10. Dyslipidemia. PLAN: In monitored unit. Broad-spectrum antibiotics: vancomycin and ceftriaxone. Monitor blood glucose level closely. Code status: Full Code. Nephrology consultation with Dr. Babs Najera, Infectious Disease consultation with Dr. Herminio Boss, Wound consultation with Dr. Josafat Narvaez, Pulmonary consultation with Dr. Choudhary, and Podiatry consultation Dr. Mic Rogers. discharge planning to SNF, patient will discuss with his daughter regarding SNF placement. Wound care. Monitor laboratory. Luis Dahl MD Sep 22, 2020 13:12
[2020-09-22] MEDS: cefTRIAXone 2 GM in D5W 55 ML IVPB SCH (13:20)
--- NOTE | 2020-09-22 15:25 | NUR ---
INSURANCE CLINICALS/REVIEW FAXED TO [facility] #[phone] fax# [phone]
[2020-09-22 16:00] VITALS: BP 141/77
--- NOTE | 2020-09-22 17:27 | NUR ---
*-*DISCHARGE PLANNING*-* PATIENT HAS BEEN ACCEPTED TO [facility] P: [phone] ROOM# 3.A
--- NOTE | 2020-09-22 19:31 | NUR ---
NURSE NOTES: Received report from cathy kunz. patient on bed,asleep. no facial grimacing or moaning noted. with padded side rails for hx of seizure. on room air. no sob. SR throughout am shift. cardiac surgeon in placed. on ccho m diet. noted with condom catheter draining well. per joaquina" patient has episodes of confusion; nm bone scan to be done on friday; last bm 09/17- on bowel mngt" iv access on the right hand saline lock. bed locked and in lowest position. call light and light button within easy reach. bed alarm on. will continue plan of care.
[2020-09-22 20:00] VITALS: BP 134/82
[2020-09-22] MEDS: Atorvastatin 20mg tab ORAL SCH (20:43)
[2020-09-22] MEDS: Miralax 17gm pkt ORAL SCH (20:43)
[2020-09-23] VITALS: BP 137/70
[2020-09-23 04:00] VITALS: BP 138/75
[2020-09-23] MEDS: Vancomycin 750mg/NS 275ml IVPB SCH ×4 (05:33→17:36)
[2020-09-23] MEDS: NovoLOG Insulin Flexpen SUBQ SCH ×4 (05:35→21:02)
--- NOTE | 2020-09-23 06:12 | NUR ---
NURSE HAND-OFF REPORT: Important Events on Shift: episodes of confusion. rendered reality orientation Patient Status: stable Diet: ccho m Pending Orders: NM bone scan Pending Results/Labs: Pending MD notification: Latest Vital Signs: Temperature 98.5 , Pulse 88 , B/P 138 /75 , Respiratory Rate 18 , O2 SAT 95 , Room Air, O2 Flow Rate . Vital Sign Comment: EKG Rhythm: Sinus Rhythm Rhythm change?: N MD Notified?: MD Response: Latest [place] Fall Score: 60 Fall Risk: High Risk Safety Measures: Call light Within Reach, Bed Alarm Zone 1, Side Rails Side Rails x3, Bed position Low and Locked. Fall Precautions: Yellow Socks Yellow Gown Patient Fall Education Addendum: 09/23/20 at 0736 by Margarita Lubin RN report given to cathy sims
--- NOTE | 2020-09-23 07:57 | NUR ---
NURSE NOTES: Received patient report from ELIESER Conley. Patient is AO x3 with episodes of confusion. Patient is on room air and shows no signs of respiratory distress. Patient says pain is decreasing. IV is intact and patent. There are no signs of erythema, infiltration, or bleeding. Patient is awake and able to make needs known. Bed is in the lowest position, call light is within reach, side rails up x3. Will continue to monitor.
[2020-09-23 08:00] VITALS: BP 135/69
[2020-09-23] MEDS: Carvedilol 6.25mg Tab ORAL SCH ×2 (08:58→17:36)
[2020-09-23] MEDS: Imdur 30mg tab ORAL SCH (08:59)
[2020-09-23] MEDS: Aspirin EC 81mg tab ORAL SCH (08:59)
[2020-09-23] MEDS: Docusate 100mg cap ORAL SCH ×2 (08:59→17:36)
[2020-09-23] MEDS: Phenytoin 100mg cap ORAL SCH ×2 (08:59→20:48)
[2020-09-23 09:30] LABS: BASOPHILS % (AUTO) 0.5 % (0.0-2.0); EOSINOPHILS % (AUTO) 2.1 % (0.0-3.0); HEMATOCRIT 36.4 % (42.0-52.0); HEMOGLOBIN 11.5 G/DL (14.2-18.0); LYMPHOCYTES % (AUTO) 20.7 % (20.0-45.0); MEAN CORPUSCULAR VOLUME 86 FL (80-99); NEUTROPHILS % (AUTO) 67.8 % (45.0-75.0); PLATELET COUNT 186 K/UL (150-450); RED BLOOD COUNT 4.21 M/UL (4.70-6.10); RED CELL DISTRIBUTION WIDTH 13.8 % (11.6-14.8); WHITE BLOOD COUNT 6.2 K/UL (4.8-10.8)
--- NOTE | 2020-09-23 10:00 | Surgery Progress Note ---
Surgery Progress Note Subjective Symptoms: improved, tolerating diet, voiding well, passing flatus, BM, pain decreased Additional Comments edema much improved cellulitis improved Objective Last 24 Hour Vital Signs Date Time Temp Pulse Resp B/P (MAP) Pulse Ox O2 Delivery O2 Flow Rate FiO2 09/23/20 08:59 135/69 09/23/20 08:58 89 135/69 09/23/20 08:00 98.0 89 20 135/69 (91) 96 09/23/20 07:02 98.5 09/23/20 04:00 98.5 88 18 138/75 (96) 95 09/23/20 04:00 85 09/23/20 00:00 96 09/23/20 00:00 97.7 86 18 137/70 (92) 95 09/22/20 21:00 Room Air 09/22/20 20:00 74 09/22/20 20:00 98.1 70 18 134/82 (99) 96 09/22/20 17:05 76 141/77 09/22/20 16:00 97.6 84 18 141/77 (98) 93 09/22/20 16:00 76 09/22/20 12:00 84 09/22/20 12:00 97.9 92 19 152/81 (104) 93 I&O Intake and Output 09/22/20 09/23/20 19:00 07:00 Intake Total 300 ml 800 ml Output Total 1600 ml Balance 300 ml -800 ml Intake Oral 300 ml 800 ml Output Urine Total 1600 ml Dressing: dry Wound: clean Cardiovascular: RSR Respiratory: clear Abdomen: soft, flat, non-tender, present bowel sounds, non-distended Extremities: edema, no tenderness, no cyanosis, pulses Laboratory Tests Test 09/22/20 11:44 09/22/20 16:20 09/22/20 16:39 09/22/20 20:38 POC Whole Blood Glucose 272 MG/DL (74-106) H 299 MG/DL (74-106) H 259 MG/DL (74-106) H Vancomycin Level Trough 10.3 ug/mL (5.0-12.0) Test 09/23/20 05:14 09/23/20 08:25 POC Whole Blood Glucose 213 MG/DL (74-106) H White Blood Count 6.2 K/UL (4.8-10.8) Red Blood Count 4.21 M/UL (4.70-6.10) L Hemoglobin 11.5 G/DL (14.2-18.0) L Hematocrit 36.4 % (42.0-52.0) L Mean Corpuscular Volume 86 FL (80-99) Mean Corpuscular Hemoglobin 27.3 PG (27.0-31.0) Mean Corpuscular Hemoglobin Concent 31.6 G/DL (32.0-36.0) L Red Cell Distribution Width 13.8 % (11.6-14.8) Platelet Count 186 K/UL (150-450) Mean Platelet Volume 7.6 FL (6.5-10.1) Neutrophils (%) (Auto) 67.8 % (45.0-75.0) Lymphocytes (%) (Auto) 20.7 % (20.0-45.0) Monocytes (%) (Auto) 9.0 % (1.0-10.0) Eosinophils (%) (Auto) 2.1 % (0.0-3.0) Basophils (%) (Auto) 0.5 % (0.0-2.0) Phosphorus Level Pending Magnesium Level Pending Plan Problems: (1) Hyperkalemia (2) Cellulitis Assessment & Plan: 70-year-old male presented with left foot cellulitis. Prior TMA. Lateral aspect a 1 cm dehiscence identified opening no purulent drainage some serous drainage. Local wound care provided. Edema identified. Vascular imaging pending. Podiatry eval. Okay for diet. Continue antibiotics. No acute surgical invention. No abscess identified. Plainly cellulitis. Will follow with recommendations thank you for let me participate in patient's care Pt presented on admission with Ulcer lateral L foot(L)0.4cm x (W)1.1cm. Hx of TMA L Foot. Base of wound is shilpa but dry. Edges are dry and peeling. N0 evidence of erythema,induration or fluctuance periwound.L Heel is boggy but blanchable. R Heel is Boggy with Non-Blanchable erythema(L)5cm x (W)6.5cm. Tx.Plan: Apply Cavilon Skin Barrier to both heels. Cover each Heel with Optifoam drsgs. Change every 7 days and prn. Off-Load heels with Pillow. Reposition at least every 2hours or as tolerated. A marker arrington a lateral soft tissue ulcer near the distal stump. Patient is status post transmetatarsal amputation. There is some susceptibility artifact from a wi re located near the tip of the fifth metatarsal stump. There is some increased STIR signal in the fifth metatarsal stump on the coronal images, equivocally visualized on one of 2 sagittal STIR sequences, not corroborated on T1 sequences. This was equivocally evident previously. Well-circumscribed high STIR signal lesions of the talus and the calcaneus are again demonstrated and appear grossly unchanged. Questionable similar lesions are also seen in the distal tibia. As on the prior exam, there is considerable soft tissue edema no definite drainable fluid collection, although evaluation for such is extremely limited. Impression: Extremely limited borderline nondiagnostic exam for reasons described above Evidence of prior transmetatarsal amputation, also previously described Equivocal focal high STIR signal within the fifth metatarsal stump, could represent a small focus of osteomyelitis but it is not corroborated on the T2-weighted images. This is also demonstrated on the previous exam. If there is high clinical suspicion, bone scan may be useful to better characterize Extensive soft tissue edema. 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 Bilaterally, grayscale and duplex images demonstrate no evidence of intraluminal thrombus. Normal phasic Doppler waveforms, demonstrating normal augmentation response and no evidence of valvular insufficiency. Greater saphenous vein(s) and tibial veins are patent. Normal compressibility. Impression: Negative for evidence of lower extremity deep venous thrombosis bilaterally Again demonstrated is prior transmetatarsal amputation. Amputation margins appear clean. Wire is seen adjacent to the fifth metatarsal stump. Or osteolytic lesion demonstrated. No acute fracture. No dislocation. No soft tissue gas. No significant interim change Impression: No acute process (3) Renal insufficiency (4) Diabetic foot ulcer (5) Uncontrolled diabetes mellitus (6) Osteomyelitis of ankle or foot, acute (7) Epileptic seizure, generalized (8) Diabetes mellitus (9) CAD (coronary artery disease) (10) Cardiomyopathy (11) PVD (peripheral vascular disease) (12) History of CVA (cerebrovascular accident) Josafat Narvaez Sep 23, 2020 10:00
[2020-09-23 10:07] LABS: PHOSPHORUS 2.9 MG/DL (2.5-4.9)
--- NOTE | 2020-09-23 11:13 | Pulmonology Progress Note ---
Subjective ROS Limited/Unobtainable: No Interval Events: None major reported per nursing Constitutional: Reports: no symptoms HEENT: Repors: no symptoms Respiratory: Reports: no symptoms Cardiovascular: Reports: no symptoms Gastrointestinal/Abdominal: Reports: no symptoms Musculoskeletal: Reports: pain, other - left foot Allergies: Coded Allergies: No Known Allergies (Unverified , 05/07/14) Objective Last 24 Hour Vital Signs Date Time Temp Pulse Resp B/P (MAP) Pulse Ox O2 Delivery O2 Flow Rate FiO2 09/23/20 09:00 Room Air 09/23/20 08:59 135/69 09/23/20 08:58 89 135/69 09/23/20 08:00 98.0 89 20 135/69 (91) 96 09/23/20 08:00 86 09/23/20 07:02 98.5 09/23/20 04:00 98.5 88 18 138/75 (96) 95 09/23/20 04:00 85 09/23/20 00:00 96 09/23/20 00:00 97.7 86 18 137/70 (92) 95 09/22/20 21:00 Room Air 09/22/20 20:00 74 09/22/20 20:00 98.1 70 18 134/82 (99) 96 09/22/20 17:05 76 141/77 09/22/20 16:00 97.6 84 18 141/77 (98) 93 09/22/20 16:00 76 09/22/20 12:00 84 09/22/20 12:00 97.9 92 19 152/81 (104) 93 Intake and Output 09/22/20 09/23/20 19:00 07:00 Intake Total 300 ml 800 ml Output Total 1600 ml Balance 300 ml -800 ml Intake Oral 300 ml 800 ml Output Urine Total 1600 ml General Appearance: no acute distress HEENT: atraumatic Respiratory: lungs clear Cardiovascular: normal rate Abdomen: soft, non tender Extremities: other - left foot toes amputated Skin: ulcers - lateral aspect of L foot Microbiology Date/Time Source Procedure Growth Status 09/20/20 16:40 Nasopharynx SARS-CoV-2 Antigen (Rapid)(TAB) - Final Complete Laboratory Tests 09/22/20 11:44: POC Whole Blood Glucose 272H 09/22/20 16:20: Vancomycin Level Trough 10.3 09/22/20 16:39: POC Whole Blood Glucose 299H 09/22/20 20:38: POC Whole Blood Glucose 259H 09/23/20 05:14: POC Whole Blood Glucose 213H 09/23/20 08:25: White Blood Count 6.2, Red Blood Count 4.21L, Hemoglobin 11.5L, Hematocrit 36.4L , Mean Corpuscular Volume 86, Mean Corpuscular Hemoglobin 27.3, Mean Corpuscular Hemoglobin Concent 31.6L, Red Cell Distribution Width 13.8, Platelet Count 186, Mean Platelet Volume 7.6, Neutrophils (%) (Auto) 67.8, Lymphocytes (%) (Auto) 20.7, Monocytes (%) (Auto) 9.0, Eosinophils (%) (Auto) 2.1, Basophils (%) (Auto) 0.5, Phosphorus Level 2.9, Magnesium Level 1.9 Current Medications Medications (Trade) Dose Ordered Sig/Mell Route PRN Reason Start Time Stop Time Status Last Admin Dose Admin Acetaminophen/ Hydrocodone Bitart ([place] 5/325) 1 tab Q6H PRN ORAL Mild Pain (Pain Scale 1-3) 09/19/20 01:30 09/26/20 01:29 Aspirin (Ecotrin) 81 mg DAILY ORAL 09/19/20 09:00 11/03/20 08:59 09/23/20 08:59 Atorvastatin Calcium (Lipitor) 20 mg BEDTIME ORAL 09/19/20 21:00 12/18/20 20:59 09/22/20 20:43 Carvedilol (Coreg) 6.25 mg BID ORAL 09/19/20 09:00 10/19/20 08:59 09/23/20 08:58 Ceftriaxone Sodium 2 gm/ Dextrose 55 ml @ 110 mls/hr Q24H IVPB 09/19/20 13:00 09/26/20 12:59 09/22/20 13:20 Clonidine HCl (Catapres Tab) 0.1 mg Q4H PRN ORAL SBP>160MMHG 09/19/20 01:45 12/18/20 01:44 09/21/20 05:11 Clopidogrel Bisulfate (Plavix) 75 mg DAILY ORAL 09/19/20 09:00 10/19/20 08:59 09/23/20 08:58 Dextrose (Dextrose 50%) 25 ml Q30M PRN IV Hypoglycemia 09/19/20 01:30 12/18/20 01:29 Dextrose (Dextrose 50%) 50 ml Q30M PRN IV Hypoglycemia 09/19/20 01:30 12/18/20 01:29 Docusate Sodium (Colace) 100 mg TWICE A DAY ORAL 09/21/20 18:00 10/21/20 17:59 09/23/20 08:59 Gabapentin (Neurontin) 600 mg BID ORAL 09/19/20 09:00 10/19/20 08:59 09/23/20 08:58 Hydromorphone HCl (Dilaudid) 1 mg Q6H PRN IVP Moderate Pain (Pain Scale 4-6) 09/19/20 01:30 09/26/20 01:29 Hydromorphone HCl (Dilaudid) 2 mg Q6H PRN IVP Severe Pain (Pain Scale 7-10) 09/19/20 01:30 09/26/20 01:29 09/23/20 06:32 Insulin Aspart (NovoLOG) BEFORE MEALS AND HS SUBQ 09/19/20 06:30 12/18/20 06:29 09/23/20 05:35 Isosorbide Mononitrate (Imdur) 30 mg DAILY ORAL 09/19/20 09:00 10/19/20 08:59 09/23/20 08:59 Ondansetron HCl (Zofran) 4 mg Q4H PRN IVP Nausea & Vomiting 09/19/20 01:30 10/19/20 01:29 Pantoprazole (Protonix) 40 mg DAILY ORAL 09/19/20 09:00 10/19/20 08:59 09/23/20 08:58 Phenytoin (Dilantin) 200 mg Q12HR ORAL 09/19/20 21:00 11/03/20 08:59 09/23/20 08:59 Polyethylene Glycol (Miralax) 17 gm BEDTIME ORAL 09/21/20 21:00 10/21/20 20:59 09/22/20 20:43 Terazosin HCl (Hytrin) 5 mg BEDTIME ORAL 09/19/20 21:00 10/19/20 20:59 09/22/20 20:43 Vancomycin HCl (Vanco pharmacy to dose) 1 ea DAILY PRN MISC Per rx protocol 09/19/20 01:30 10/19/20 01:29 Vancomycin HCl 750 mg/Sodium Chloride 275 ml @ 183.333 mls/hr Q12H IVPB 09/21/20 05:00 09/26/20 04:59 09/23/20 05:33 Zolpidem Tartrate (Ambien) 5 mg BEDTIME PRN ORAL Insomnia 09/19/20 01:45 09/26/20 01:44 09/19/20 20:58 Assessment/Plan Assessment/Plan 1. Diabetic foot ulcer 2. Diabetes mellitus with hyperglycemia 3. Hyperkalemia 4. Acute renal failure 5 .History of seizure 6. Aspiration risk; currently tolerating diet 7. Leukocytosis; On antibiotics per ID 8. Ex-smoker Vic Choudhary MD Sep 23, 2020 11:13
[2020-09-23 12:00] VITALS: BP 118/73
[2020-09-23] MEDS: cefTRIAXone 2 GM in D5W 55 ML IVPB SCH (12:25)
--- NOTE | 2020-09-23 13:32 | NUR ---
INSURANCE CLINICALS FAXED TO [facility]#[phone] fax# [phone]
--- NOTE | 2020-09-23 13:43 | Infectious Diseases Prog Note ---
Assessment/Plan Assessment/Plan IMPRESSION: 1. Diabetic foot ulcer, cellulitis, ?osteomyelitis. 2. Diabetes mellitus with hyperglycemia. 3. Hyperkalemia. 4. Acute renal failure. 5. Peripheral vascular disease. 6. Lung infiltrates, ? pneumonia RECOMMENDATION: Continue IV vancomycin & ceftriaxone. Inconclusive MRI of the foot because of motion artifact Waiting for Bone scan Rapid COVID19 test: negative Subjective ROS Limited/Unobtainable: Yes Allergies: Coded Allergies: No Known Allergies (Unverified , 05/07/14) Objective Last 24 Hour Vital Signs Date Time Temp Pulse Resp B/P (MAP) Pulse Ox O2 Delivery O2 Flow Rate FiO2 09/23/20 12:00 86 09/23/20 12:00 98.0 87 20 118/73 (88) 95 09/23/20 09:00 Room Air 09/23/20 08:59 135/69 09/23/20 08:58 89 135/69 09/23/20 08:00 98.0 89 20 135/69 (91) 96 09/23/20 08:00 86 09/23/20 07:02 98.5 09/23/20 04:00 98.5 88 18 138/75 (96) 95 09/23/20 04:00 85 09/23/20 00:00 96 09/23/20 00:00 97.7 86 18 137/70 (92) 95 09/22/20 21:00 Room Air 09/22/20 20:00 74 09/22/20 20:00 98.1 70 18 134/82 (99) 96 09/22/20 17:05 76 141/77 09/22/20 16:00 97.6 84 18 141/77 (98) 93 09/22/20 16:00 76 Height (Feet): 6 Height (Inches): 0.00 Weight (Pounds): 150 HEENT: mucous membranes moist Respiratory/Chest: lungs clear Cardiovascular: normal rate Abdomen: soft, non tender Extremities: no edema, other - left toes are amputated Skin: ulcers, other - left lateral foot Neurologic/Psychiatric: other - sleeping Microbiology Date/Time Source Procedure Growth Status 09/20/20 16:40 Nasopharynx SARS-CoV-2 Antigen (Rapid)(TAB) - Final Complete Laboratory Tests Test 09/22/20 16:20 09/22/20 16:39 09/22/20 20:38 09/23/20 05:14 Vancomycin Level Trough 10.3 ug/mL (5.0-12.0) POC Whole Blood Glucose 299 MG/DL (74-106) H 259 MG/DL (74-106) H 213 MG/DL (74-106) H Test 09/23/20 08:25 09/23/20 11:37 White Blood Count 6.2 K/UL (4.8-10.8) Red Blood Count 4.21 M/UL (4.70-6.10) L Hemoglobin 11.5 G/DL (14.2-18.0) L Hematocrit 36.4 % (42.0-52.0) L Mean Corpuscular Volume 86 FL (80-99) Mean Corpuscular Hemoglobin 27.3 PG (27.0-31.0) Mean Corpuscular Hemoglobin Concent 31.6 G/DL (32.0-36.0) L Red Cell Distribution Width 13.8 % (11.6-14.8) Platelet Count 186 K/UL (150-450) Mean Platelet Volume 7.6 FL (6.5-10.1) Neutrophils (%) (Auto) 67.8 % (45.0-75.0) Lymphocytes (%) (Auto) 20.7 % (20.0-45.0) Monocytes (%) (Auto) 9.0 % (1.0-10.0) Eosinophils (%) (Auto) 2.1 % (0.0-3.0) Basophils (%) (Auto) 0.5 % (0.0-2.0) Phosphorus Level 2.9 MG/DL (2.5-4.9) Magnesium Level 1.9 MG/DL (1.8-2.4) POC Whole Blood Glucose 333 MG/DL (74-106) H Current Medications Medications (Trade) Dose Ordered Sig/Mell Route PRN Reason Start Time Stop Time Status Last Admin Dose Admin Acetaminophen/ Hydrocodone Bitart ([place] 5/325) 1 tab Q6H PRN ORAL Mild Pain (Pain Scale 1-3) 09/19/20 01:30 09/26/20 01:29 Aspirin (Ecotrin) 81 mg DAILY ORAL 09/19/20 09:00 11/03/20 08:59 09/23/20 08:59 Atorvastatin Calcium (Lipitor) 20 mg BEDTIME ORAL 09/19/20 21:00 12/18/20 20:59 09/22/20 20:43 Carvedilol (Coreg) 6.25 mg BID ORAL 09/19/20 09:00 10/19/20 08:59 09/23/20 08:58 Ceftriaxone Sodium 2 gm/ Dextrose 55 ml @ 110 mls/hr Q24H IVPB 09/19/20 13:00 09/26/20 12:59 09/23/20 12:25 Clonidine HCl (Catapres Tab) 0.1 mg Q4H PRN ORAL SBP>160MMHG 09/19/20 01:45 12/18/20 01:44 09/21/20 05:11 Clopidogrel Bisulfate (Plavix) 75 mg DAILY ORAL 09/19/20 09:00 10/19/20 08:59 09/23/20 08:58 Dextrose (Dextrose 50%) 25 ml Q30M PRN IV Hypoglycemia 09/19/20 01:30 12/18/20 01:29 Dextrose (Dextrose 50%) 50 ml Q30M PRN IV Hypoglycemia 09/19/20 01:30 12/18/20 01:29 Docusate Sodium (Colace) 100 mg TWICE A DAY ORAL 09/21/20 18:00 10/21/20 17:59 09/23/20 08:59 Gabapentin (Neurontin) 600 mg BID ORAL 09/19/20 09:00 10/19/20 08:59 09/23/20 08:58 Hydromorphone HCl (Dilaudid) 1 mg Q6H PRN IVP Moderate Pain (Pain Scale 4-6) 09/19/20 01:30 09/26/20 01:29 Hydromorphone HCl (Dilaudid) 2 mg Q6H PRN IVP Severe Pain (Pain Scale 7-10) 09/19/20 01:30 09/26/20 01:29 09/23/20 06:32 Insulin Aspart (NovoLOG) BEFORE MEALS AND HS SUBQ 09/19/20 06:30 12/18/20 06:29 09/23/20 11:49 Isosorbide Mononitrate (Imdur) 30 mg DAILY ORAL 09/19/20 09:00 10/19/20 08:59 09/23/20 08:59 Ondansetron HCl (Zofran) 4 mg Q4H PRN IVP Nausea & Vomiting 09/19/20 01:30 10/19/20 01:29 Pantoprazole (Protonix) 40 mg DAILY ORAL 09/19/20 09:00 10/19/20 08:59 09/23/20 08:58 Phenytoin (Dilantin) 200 mg Q12HR ORAL 09/19/20 21:00 11/03/20 08:59 09/23/20 08:59 Polyethylene Glycol (Miralax) 17 gm BEDTIME ORAL 09/21/20 21:00 10/21/20 20:59 09/22/20 20:43 Terazosin HCl (Hytrin) 5 mg BEDTIME ORAL 09/19/20 21:00 10/19/20 20:59 09/22/20 20:43 Vancomycin HCl (Vanco pharmacy to dose) 1 ea DAILY PRN MISC Per rx protocol 09/19/20 01:30 10/19/20 01:29 Vancomycin HCl 750 mg/Sodium Chloride 275 ml @ 183.333 mls/hr Q12H IVPB 09/21/20 05:00 09/26/20 04:59 09/23/20 05:33 Zolpidem Tartrate (Ambien) 5 mg BEDTIME PRN ORAL Insomnia 09/19/20 01:45 09/26/20 01:44 09/19/20 20:58 Herminio Boss MD Sep 23, 2020 13:43
--- NOTE | 2020-09-23 14:08 | Nephrology Progress Note ---
Assessment/Plan Plan #left foot osteo #r/o sepsis #hyponatremia #hyperkalemia #JASMIN #DM #HTN #HLD - DC IVF - add lantus 7 units qday - plan for bone scan - IV antibiotics - pain control - ID eval - podiatry eval - surgery eval - resume home meds - monitor BG - hold metformin - foot MRI noted -time spent 65 min Subjective ROS Limited/Unobtainable: No Constitutional: Reports: weakness HEENT: Denies: no symptoms, eye pain, blurred vision, tearing, double vision, ear pain, ear discharge, nose pain, nose congestion, throat pain, throat swelling, mouth pain, mouth swelling, other Genitourinary: Denies: no symptoms, burning, discharge, frequency, flank pain, hematuria, incontinence, pain, urgency, other Neurologic/Psychiatric: Denies: no symptoms, anxiety, depressed, emotional problems, headache, numbness, paresthesia, pre-existing deficit, seizure, tingling, tremors, weakness, other Subjective Hyperglycemia will start lantus Impression: Extremely limited borderline nondiagnostic exam for reasons described above Evidence of prior transmetatarsal amputation, also previously described Equivocal focal high STIR signal within the fifth metatarsal stump, could represent a small focus of osteomyelitis but it is not corroborated on the T2-weighted images. This is also demonstrated on the previous exam. If there is high clinical suspicion, bone scan may be useful to better characterize Extensive soft tissue edema. 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 Objective Objective Last 24 Hour Vital Signs Date Time Temp Pulse Resp B/P (MAP) Pulse Ox O2 Delivery O2 Flow Rate FiO2 09/23/20 12:00 86 09/23/20 12:00 98.0 87 20 118/73 (88) 95 09/23/20 09:00 Room Air 09/23/20 08:59 135/69 09/23/20 08:58 89 135/69 09/23/20 08:00 98.0 89 20 135/69 (91) 96 09/23/20 08:00 86 09/23/20 07:02 98.5 09/23/20 04:00 98.5 88 18 138/75 (96) 95 09/23/20 04:00 85 2/20/21 00:00 96 09/23/20 00:00 97.7 86 18 137/70 (92) 95 09/22/20 21:00 Room Air 09/22/20 20:00 74 09/22/20 20:00 98.1 70 18 134/82 (99) 96 09/22/20 17:05 76 141/77 09/22/20 16:00 97.6 84 18 141/77 (98) 93 09/22/20 16:00 76 Intake and Output 09/22/20 09/23/20 19:00 07:00 Intake Total 300 ml 800 ml Output Total 1600 ml Balance 300 ml -800 ml Intake Oral 300 ml 800 ml Output Urine Total 1600 ml Laboratory Tests 09/22/20 16:20: Vancomycin Level Trough 10.3 09/22/20 16:39: POC Whole Blood Glucose 299H 09/22/20 20:38: POC Whole Blood Glucose 259H 09/23/20 05:14: POC Whole Blood Glucose 213H 09/23/20 08:25: White Blood Count 6.2, Red Blood Count 4.21L, Hemoglobin 11.5L, Hematocrit 36.4L , Mean Corpuscular Volume 86, Mean Corpuscular Hemoglobin 27.3, Mean Corpuscular Hemoglobin Concent 31.6L, Red Cell Distribution Width 13.8, Platelet Count 186, Mean Platelet Volume 7.6, Neutrophils (%) (Auto) 67.8, Lymphocytes (%) (Auto) 20.7, Monocytes (%) (Auto) 9.0, Eosinophils (%) (Auto) 2.1, Basophils (%) (Auto) 0.5, Phosphorus Level 2.9, Magnesium Level 1.9 09/23/20 11:37: POC Whole Blood Glucose 333H Height (Feet): 6 Height (Inches): 0.00 Weight (Pounds): 150 Objective General: Patient is laying in bed with normal work of breathing on room air HEENT: Head exam reveals that the head is normocephalic, atraumatic without deformity or unusual swelling. Pupils are PERRLA. CHEST AND LUNGS: Reveals clear, normal, symmetrical breath sounds with no adventitious sounds. CARDIOVASCULAR: Reveals normal S1, S2 without murmurs, rubs, or clicks. ABDOMEN: Soft with no tenderness or organomegaly. RECTAL: Deferred. MUSCULOSKELETAL: There is no tenderness to palpation. Range of motion is normal. SKIN: All left foot toes amputated. Small chronic wound on the lateral aspect of left foot without erythema or induration. NEUROLOGICAL: Alert and oriented x3 , nonfocal Babs Najera M.D. Sep 23, 2020 14:08
--- NOTE | 2020-09-23 14:35 | General Progress Note ---
Progress Note Progress Note - Brief Podiatry Progress Note. Assessment/Plan: A: S/p L foot TMA with lateral ulceration. PVD DM P: Labs and chart reviewed. MRI to L foot reviewed, official report relates possible OM of distal 5th met. Clinically L foot exhibits no active acute SOI , gangrene, deep abscess or purulent drainage noted. 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 Rec daily betadine dressing to L foot. Cont IV ABx per ID. Pain meds per primary team. Off-loading measures to B/L L/E No acute surgical intervention required by podiatry. Patient can F/U in our clinic 1 week after hospital discharge. Cont Tx per specialists. Podiatry will cont to monitor. Mic Rogers DPM Sep 23, 2020 14:35
[2020-09-23] MEDS: Levemir Flexpen SUBQ SCH (15:44)
[2020-09-23 16:00] VITALS: BP 119/65
--- NOTE | 2020-09-23 16:58 | Internal Med Progress Note ---
Subjective Date of Service: Sep 23, 2020 Physician Name Sukumar Rhodes Attending Physician Babs Najera M.D. Current Medications Medications (Trade) Dose Ordered Sig/Mell Route PRN Reason Start Time Stop Time Status Last Admin Dose Admin Acetaminophen/ Hydrocodone Bitart ([place] 5/325) 1 tab Q6H PRN ORAL Mild Pain (Pain Scale 1-3) 09/19/20 01:30 09/26/20 01:29 Aspirin (Ecotrin) 81 mg DAILY ORAL 09/19/20 09:00 11/03/20 08:59 09/23/20 08:59 Atorvastatin Calcium (Lipitor) 20 mg BEDTIME ORAL 09/19/20 21:00 12/18/20 20:59 09/22/20 20:43 Carvedilol (Coreg) 6.25 mg BID ORAL 09/19/20 09:00 10/19/20 08:59 09/23/20 08:58 Ceftriaxone Sodium 2 gm/ Dextrose 55 ml @ 110 mls/hr Q24H IVPB 09/19/20 13:00 09/26/20 12:59 09/23/20 12:25 Clonidine HCl (Catapres Tab) 0.1 mg Q4H PRN ORAL SBP>160MMHG 09/19/20 01:45 12/18/20 01:44 09/21/20 05:11 Clopidogrel Bisulfate (Plavix) 75 mg DAILY ORAL 09/19/20 09:00 10/19/20 08:59 09/23/20 08:58 Dextrose (Dextrose 50%) 25 ml Q30M PRN IV Hypoglycemia 09/19/20 01:30 12/18/20 01:29 Dextrose (Dextrose 50%) 50 ml Q30M PRN IV Hypoglycemia 09/19/20 01:30 12/18/20 01:29 Docusate Sodium (Colace) 100 mg TWICE A DAY ORAL 09/21/20 18:00 10/21/20 17:59 09/23/20 08:59 Gabapentin (Neurontin) 600 mg BID ORAL 09/19/20 09:00 10/19/20 08:59 09/23/20 08:58 Hydromorphone HCl (Dilaudid) 1 mg Q6H PRN IVP Moderate Pain (Pain Scale 4-6) 09/19/20 01:30 09/26/20 01:29 Hydromorphone HCl (Dilaudid) 2 mg Q6H PRN IVP Severe Pain (Pain Scale 7-10) 09/19/20 01:30 09/26/20 01:29 09/23/20 06:32 Insulin Aspart (NovoLOG) BEFORE MEALS AND HS SUBQ 09/19/20 06:30 12/18/20 06:29 09/23/20 15:44 Insulin Detemir (Levemir) 7 units Q24H SUBQ 09/23/20 15:00 12/22/20 14:59 09/23/20 15:44 Isosorbide Mononitrate (Imdur) 30 mg DAILY ORAL 09/19/20 09:00 10/19/20 08:59 09/23/20 08:59 Ondansetron HCl (Zofran) 4 mg Q4H PRN IVP Nausea & Vomiting 09/19/20 01:30 10/19/20 01:29 Pantoprazole (Protonix) 40 mg DAILY ORAL 09/19/20 09:00 10/19/20 08:59 09/23/20 08:58 Phenytoin (Dilantin) 200 mg Q12HR ORAL 09/19/20 21:00 11/03/20 08:59 09/23/20 08:59 Polyethylene Glycol (Miralax) 17 gm BEDTIME ORAL 09/21/20 21:00 10/21/20 20:59 09/22/20 20:43 Terazosin HCl (Hytrin) 5 mg BEDTIME ORAL 09/19/20 21:00 10/19/20 20:59 09/22/20 20:43 Vancomycin HCl (Vanco pharmacy to dose) 1 ea DAILY PRN MISC Per rx protocol 09/19/20 01:30 10/19/20 01:29 Vancomycin HCl 750 mg/Sodium Chloride 275 ml @ 183.333 mls/hr Q12H IVPB 09/21/20 05:00 09/26/20 04:59 09/23/20 05:33 Zolpidem Tartrate (Ambien) 5 mg BEDTIME PRN ORAL Insomnia 09/19/20 01:45 09/26/20 01:44 09/19/20 20:58 Allergies: Coded Allergies: No Known Allergies (Unverified , 05/07/14) ROS Limited/Unobtainable: No Constitutional: Reports: no symptoms HEENT: Reports: no symptoms Cardiovascular: Reports: no symptoms Respiratory: Reports: no symptoms Gastrointestinal/Abdominal: Reports: no symptoms Genitourinary: Reports: no symptoms Subjective 70 YO M admitted with left foot pain. Now left foot diabetic ulcer. Cover for Int Larry-Dr Dahl Objective Last Vital Signs Date Time Temp Pulse Resp B/P (MAP) Pulse Ox O2 Delivery O2 Flow Rate FiO2 09/23/20 16:00 97.9 87 20 119/65 (83) 95 09/23/20 09:00 Room Air Laboratory Tests Test 09/22/20 20:38 09/23/20 05:14 09/23/20 08:25 09/23/20 11:37 POC Whole Blood Glucose 259 MG/DL (74-106) H 213 MG/DL (74-106) H 333 MG/DL (74-106) H White Blood Count 6.2 K/UL (4.8-10.8) Red Blood Count 4.21 M/UL (4.70-6.10) L Hemoglobin 11.5 G/DL (14.2-18.0) L Hematocrit 36.4 % (42.0-52.0) L Mean Corpuscular Volume 86 FL (80-99) Mean Corpuscular Hemoglobin 27.3 PG (27.0-31.0) Mean Corpuscular Hemoglobin Concent 31.6 G/DL (32.0-36.0) L Red Cell Distribution Width 13.8 % (11.6-14.8) Platelet Count 186 K/UL (150-450) Mean Platelet Volume 7.6 FL (6.5-10.1) Neutrophils (%) (Auto) 67.8 % (45.0-75.0) Lymphocytes (%) (Auto) 20.7 % (20.0-45.0) Monocytes (%) (Auto) 9.0 % (1.0-10.0) Eosinophils (%) (Auto) 2.1 % (0.0-3.0) Basophils (%) (Auto) 0.5 % (0.0-2.0) Phosphorus Level 2.9 MG/DL (2.5-4.9) Magnesium Level 1.9 MG/DL (1.8-2.4) Test 09/23/20 15:29 POC Whole Blood Glucose 303 MG/DL (74-106) H Intake and Output 09/22/20 09/23/20 19:00 07:00 Intake Total 300 ml 800 ml Output Total 1600 ml Balance 300 ml -800 ml Intake Oral 300 ml 800 ml Output Urine Total 1600 ml Objective PHYSICAL EXAMINATION: GENERAL: Patient is awake, responsive, in no acute distress. HEAD AND NECK: Pupils are equal and reactive to light. Extraocular movements are intact. Neck was supple. No JVD. LUNGS: Good air entry. No wheezing or rales. HEART: S1, S2. Regular rhythm. No murmurs or gallops. ABDOMEN: Soft, nondistended, nontender. Positive bowel sounds. EXTREMITIES: No cyanosis, clubbing. Left foot has TMA with lateral mid foot ulcer. NEUROLOGIC: Cranial nerves II through XII grossly intact. Motor strength 5/5 in all 4 extremities. Gait is ambulatory with a front wheel walker. RECTAL: Refused and deferred. GENITOURINARY: Refused and deferred. PSYCHIATRIC: Mood and affect is intact. Assessment/Plan Assessment/Plan Assessment/Plan Assessment/Plan ASSESSMENT: 1. 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 2. Uncontrolled diabetes type 2. 3. Acute kidney injury. 4. Seizure disorder. 5. Hyperkalemia. 6. Peripheral vascular disease. 7. History of CVA with TIA. 8. Hyponatremia. 9. Hypertension. 10. Dyslipidemia. PLAN: In monitored unit. Broad-spectrum antibiotics: vancomycin and ceftriaxone. Monitor blood glucose level closely. Code status: Full Code. Nephrology consultation with Dr. Babs Najera, Infectious Disease consultation with Dr. Herminio Boss, Wound consultation with Dr. Josafat Narvaez, Pulmonary consultation with Dr. Choudhary, and Podiatry consultation Dr. Mic Rogers. discharge planning to SNF, patient will discuss with his daughter regarding SNF placement. Wound care. Monitor laboratory. Sukumar Rhodes MD Sep 23, 2020 16:58
--- NOTE | 2020-09-23 19:21 | NUR ---
NURSE HAND-OFF REPORT: Important Events on Shift:[None] Patient Status: [Full code] Diet: [CCHO med] Pending Orders: [] Pending Results/Labs:[] Pending MD notification:[] Latest Vital Signs: Temperature 97.9 , Pulse 79 , B/P 119 /65 , Respiratory Rate 20 , O2 SAT 95 , Room Air, O2 Flow Rate . Vital Sign Comment: [] EKG Rhythm: Sinus Rhythm Rhythm change?: N MD Notified?: - MD Response: Latest Manzanares Fall Score: 60 Fall Risk: High Risk Safety Measures: Call light Within Reach, Bed Alarm Zone 1, Side Rails Side Rails x3, Bed position Low and Locked. Fall Precautions: Yellow Socks Yellow Gown Patient Fall Education Report given to [ELIESER Hernandez].
--- NOTE | 2020-09-23 19:58 | NUR ---
NURSE NOTES: Received patient in bed, awake, alert, oriented x4, gets easily confused and forgetful, on room air, has condom cath on draining well. IV site is clean dry and intact. Call light is within reach, bed lowered, locked, alarm is on, will continue to monitor for comfort and safety.
[2020-09-23 20:00] VITALS: BP 136/73
[2020-09-23] MEDS: Miralax 17gm pkt ORAL SCH (20:49)
[2020-09-23] MEDS: Atorvastatin 20mg tab ORAL SCH (20:49)
[2020-09-24 00:22] VITALS: BP 138/67
[2020-09-24 04:00] VITALS: BP 141/70
[2020-09-24] MEDS: Vancomycin 750mg/NS 275ml IVPB SCH ×4 (04:56→17:25)
[2020-09-24] MEDS: NovoLOG Insulin Flexpen SUBQ SCH ×4 (05:30→21:25)
--- NOTE | 2020-09-24 07:04 | NUR ---
NURSE HAND-OFF REPORT: Important Events on Shift:blood sugar in am 377, coverage provided Patient Status: full code Diet: ccho med Pending Orders: Pending Results/Labs: Pending MD notification: Latest Vital Signs: Temperature 97.7 , Pulse 72 , B/P 141 /70 , Respiratory Rate 18 , O2 SAT 94 , Room Air, O2 Flow Rate . Vital Sign Comment: EKG Rhythm: Sinus Rhythm Rhythm change?: N MD Notified?: - MD Response: Latest Manzanares Fall Score: 60 Fall Risk: High Risk Safety Measures: Call light Within Reach, Bed Alarm Zone 1, Side Rails Side Rails x3, Bed position Low and Locked. Fall Precautions: Yellow Socks Yellow Gown Patient Fall Education Report given to Sarah Beth MON
--- NOTE | 2020-09-24 07:48 | Pulmonology Progress Note ---
Subjective ROS Limited/Unobtainable: No Interval Events: None major reported per nursing Constitutional: Reports: no symptoms HEENT: Repors: no symptoms Respiratory: Reports: no symptoms Cardiovascular: Reports: no symptoms Gastrointestinal/Abdominal: Reports: no symptoms Musculoskeletal: Reports: pain, other - left foot Allergies: Coded Allergies: No Known Allergies (Unverified , 05/07/14) Objective Last 24 Hour Vital Signs Date Time Temp Pulse Resp B/P (MAP) Pulse Ox O2 Delivery O2 Flow Rate FiO2 09/24/20 04:00 72 09/24/20 04:00 97.7 87 18 141/70 (93) 94 09/24/20 00:22 98.9 87 18 138/67 (90) 94 09/24/20 00:00 84 09/23/20 21:20 98.0 09/23/20 21:16 Room Air 09/23/20 20:00 98.0 70 20 136/73 (94) 96 09/23/20 20:00 77 09/23/20 17:36 79 119/65 09/23/20 16:00 79 09/23/20 16:00 97.9 87 20 119/65 (83) 95 09/23/20 12:00 86 09/23/20 12:00 98.0 87 20 118/73 (88) 95 09/23/20 09:00 Room Air 09/23/20 08:59 135/69 09/23/20 08:58 89 135/69 09/23/20 08:00 98.0 89 20 135/69 (91) 96 09/23/20 08:00 86 Intake and Output 09/23/20 09/24/20 19:00 07:00 Intake Total 600 ml Output Total 1400 ml Balance -800 ml Intake Oral 600 ml Output Urine Total 1400 ml General Appearance: no acute distress HEENT: atraumatic Respiratory: lungs clear Cardiovascular: normal rate Abdomen: soft, non tender Extremities: other - left foot toes amputated Skin: ulcers - lateral aspect of L foot Laboratory Tests 09/23/20 08:25: White Blood Count 6.2, Red Blood Count 4.21L, Hemoglobin 11.5L, Hematocrit 36.4L , Mean Corpuscular Volume 86, Mean Corpuscular Hemoglobin 27.3, Mean Corpuscular Hemoglobin Concent 31.6L, Red Cell Distribution Width 13.8, Platelet Count 186, Mean Platelet Volume 7.6, Neutrophils (%) (Auto) 67.8, Lymphocytes (%) (Auto) 20.7, Monocytes (%) (Auto) 9.0, Eosinophils (%) (Auto) 2.1, Basophils (%) (Auto) 0.5, Phosphorus Level 2.9, Magnesium Level 1.9 09/23/20 11:37: POC Whole Blood Glucose 333H 09/23/20 15:29: POC Whole Blood Glucose 303H Current Medications Medications (Trade) Dose Ordered Sig/Mell Route PRN Reason Start Time Stop Time Status Last Admin Dose Admin Acetaminophen/ Hydrocodone Bitart ([place] 5/325) 1 tab Q6H PRN ORAL Mild Pain (Pain Scale 1-3) 09/19/20 01:30 09/26/20 01:29 Aspirin (Ecotrin) 81 mg DAILY ORAL 09/19/20 09:00 11/03/20 08:59 09/23/20 08:59 Atorvastatin Calcium (Lipitor) 20 mg BEDTIME ORAL 09/19/20 21:00 12/18/20 20:59 09/23/20 20:49 Carvedilol (Coreg) 6.25 mg BID ORAL 09/19/20 09:00 10/19/20 08:59 09/23/20 17:36 Ceftriaxone Sodium 2 gm/ Dextrose 55 ml @ 110 mls/hr Q24H IVPB 09/19/20 13:00 09/26/20 12:59 09/23/20 12:25 Clonidine HCl (Catapres Tab) 0.1 mg Q4H PRN ORAL SBP>160MMHG 09/19/20 01:45 12/18/20 01:44 09/21/20 05:11 Clopidogrel Bisulfate (Plavix) 75 mg DAILY ORAL 09/19/20 09:00 10/19/20 08:59 09/23/20 08:58 Dextrose (Dextrose 50%) 25 ml Q30M PRN IV Hypoglycemia 09/19/20 01:30 12/18/20 01:29 Dextrose (Dextrose 50%) 50 ml Q30M PRN IV Hypoglycemia 09/19/20 01:30 12/18/20 01:29 Docusate Sodium (Colace) 100 mg TWICE A DAY ORAL 09/21/20 18:00 10/21/20 17:59 09/23/20 17:36 Gabapentin (Neurontin) 600 mg BID ORAL 09/19/20 09:00 10/19/20 08:59 09/23/20 17:36 Hydromorphone HCl (Dilaudid) 1 mg Q6H PRN IVP Moderate Pain (Pain Scale 4-6) 09/19/20 01:30 09/26/20 01:29 Hydromorphone HCl (Dilaudid) 2 mg Q6H PRN IVP Severe Pain (Pain Scale 7-10) 09/19/20 01:30 09/26/20 01:29 09/23/20 20:49 Insulin Aspart (NovoLOG) BEFORE MEALS AND HS SUBQ 09/19/20 06:30 12/18/20 06:29 09/24/20 05:30 Insulin Detemir (Levemir) 7 units Q24H SUBQ 09/23/20 15:00 12/22/20 14:59 09/23/20 15:44 Isosorbide Mononitrate (Imdur) 30 mg DAILY ORAL 09/19/20 09:00 10/19/20 08:59 09/23/20 08:59 Ondansetron HCl (Zofran) 4 mg Q4H PRN IVP Nausea & Vomiting 09/19/20 01:30 10/19/20 01:29 Pantoprazole (Protonix) 40 mg DAILY ORAL 09/19/20 09:00 10/19/20 08:59 09/23/20 08:58 Phenytoin (Dilantin) 200 mg Q12HR ORAL 09/19/20 21:00 11/03/20 08:59 09/23/20 20:48 Polyethylene Glycol (Miralax) 17 gm BEDTIME ORAL 09/21/20 21:00 10/21/20 20:59 09/23/20 20:49 Terazosin HCl (Hytrin) 5 mg BEDTIME ORAL 09/19/20 21:00 10/19/20 20:59 09/23/20 20:48 Vancomycin HCl (Vanco pharmacy to dose) 1 ea DAILY PRN MISC Per rx protocol 09/19/20 01:30 10/19/20 01:29 Vancomycin HCl 750 mg/Sodium Chloride 275 ml @ 183.333 mls/hr Q12H IVPB 09/21/20 05:00 09/26/20 04:59 09/24/20 04:56 Zolpidem Tartrate (Ambien) 5 mg BEDTIME PRN ORAL Insomnia 09/19/20 01:45 09/26/20 01:44 09/19/20 20:58 Assessment/Plan Assessment/Plan 1. Diabetic foot ulcer 2. Diabetes mellitus with hyperglycemia 3. Hyperkalemia 4. Acute renal failure 5 .History of seizure 6. Aspiration risk; currently tolerating diet 7. Leukocytosis; On antibiotics per ID 8. Ex-smoker Vic Choudhary MD Sep 24, 2020 07:48
[2020-09-24 08:00] VITALS: BP 145/76
[2020-09-24 08:26] LABS: BASOPHILS % (AUTO) 0.9 % (0.0-2.0); EOSINOPHILS % (AUTO) 2.2 % (0.0-3.0); HEMATOCRIT 36.2 % (42.0-52.0); HEMOGLOBIN 11.3 G/DL (14.2-18.0); LYMPHOCYTES % (AUTO) 24.2 % (20.0-45.0); MEAN CORPUSCULAR VOLUME 87 FL (80-99); MONOCYTES % (AUTO) 9.8 % (1.0-10.0); PLATELET COUNT 183 K/UL (150-450); RED BLOOD COUNT 4.17 M/UL (4.70-6.10); RED CELL DISTRIBUTION WIDTH 13.5 % (11.6-14.8); WHITE BLOOD COUNT 6.2 K/UL (4.8-10.8)
[2020-09-24 08:32] LABS: ANION GAP 6 mmol/L (5-15); BLOOD UREA NITROGEN 15 mg/dL (7-18); CALCIUM 9.1 MG/DL (8.5-10.1); CARBON DIOXIDE 30 MMOL/L (21-32); CHLORIDE 103 MMOL/L (98-107); CREATININE 1.3 MG/DL (0.55-1.30); PHOSPHORUS 3.1 MG/DL (2.5-4.9); POTASSIUM 4.3 MMOL/L (3.5-5.1); SODIUM 139 MMOL/L (136-145)
--- NOTE | 2020-09-24 09:00 | NUR ---
NURSE NOTES: RECIEVED PT. IN BED AWAKE AND ORIENTED NO S/S OF DISTRESS NOTED @ THIS TIME NO C/O PAIN .CALL LIGHT WITHIN REACH @ALL TIMES.TURNED AND REPOSITIONED FOR COMFORT.WILL CONTINUE TO MONITOR.
[2020-09-24] MEDS: Imdur 30mg tab ORAL SCH (10:46)
[2020-09-24] MEDS: Aspirin EC 81mg tab ORAL SCH (10:47)
[2020-09-24] MEDS: Carvedilol 6.25mg Tab ORAL SCH ×2 (10:47→17:32)
[2020-09-24] MEDS: Phenytoin 100mg cap ORAL SCH ×2 (10:48→21:24)
[2020-09-24] MEDS: Docusate 100mg cap ORAL SCH ×2 (10:58→17:32)
[2020-09-24 12:00] VITALS: BP 186/91
--- NOTE | 2020-09-24 12:57 | Surgery Progress Note ---
Surgery Progress Note Subjective Symptoms: improved, tolerating diet, voiding well, passing flatus, BM Objective Last 24 Hour Vital Signs Date Time Temp Pulse Resp B/P (MAP) Pulse Ox O2 Delivery O2 Flow Rate FiO2 09/24/20 10:47 84 145/76 09/24/20 10:46 145/76 09/24/20 09:00 Room Air 09/24/20 08:00 92 09/24/20 08:00 97.8 84 20 145/76 (99) 09/24/20 04:00 72 09/24/20 04:00 97.7 87 18 141/70 (93) 94 09/24/20 00:22 98.9 87 18 138/67 (90) 94 09/24/20 00:00 84 09/23/20 21:20 98.0 09/23/20 21:16 Room Air 09/23/20 20:00 98.0 70 20 136/73 (94) 96 09/23/20 20:00 77 09/23/20 17:36 79 119/65 09/23/20 16:00 79 09/23/20 16:00 97.9 87 20 119/65 (83) 95 I&O Intake and Output 09/23/20 09/24/20 19:00 07:00 Intake Total 600 ml Output Total 1400 ml Balance -800 ml Intake Oral 600 ml Output Urine Total 1400 ml Dressing: dry Wound: clean Cardiovascular: RSR Respiratory: clear Abdomen: soft, non-tender, present bowel sounds, non-distended Extremities: no edema, no tenderness, no cyanosis, pulses Laboratory Tests Test 09/23/20 15:29 09/24/20 07:00 09/24/20 07:50 POC Whole Blood Glucose 303 MG/DL (74-106) H Sodium Level 139 MMOL/L (136-145) Potassium Level 4.3 MMOL/L (3.5-5.1) Chloride Level 103 MMOL/L (98-107) Carbon Dioxide Level 30 MMOL/L (21-32) Anion Gap 6 mmol/L (5-15) Blood Urea Nitrogen 15 mg/dL (7-18) Creatinine 1.3 MG/DL (0.55-1.30) Estimat Glomerular Filtration Rate > 60 mL/min (>60) Glucose Level 281 MG/DL (74-106) H Calcium Level 9.1 MG/DL (8.5-10.1) Phosphorus Level 3.1 MG/DL (2.5-4.9) Magnesium Level 1.8 MG/DL (1.8-2.4) White Blood Count 6.2 K/UL (4.8-10.8) Red Blood Count 4.17 M/UL (4.70-6.10) L Hemoglobin 11.3 G/DL (14.2-18.0) L Hematocrit 36.2 % (42.0-52.0) L Mean Corpuscular Volume 87 FL (80-99) Mean Corpuscular Hemoglobin 27.1 PG (27.0-31.0) Mean Corpuscular Hemoglobin Concent 31.2 G/DL (32.0-36.0) L Red Cell Distribution Width 13.5 % (11.6-14.8) Platelet Count 183 K/UL (150-450) Mean Platelet Volume 7.1 FL (6.5-10.1) Neutrophils (%) (Auto) 63.0 % (45.0-75.0) Lymphocytes (%) (Auto) 24.2 % (20.0-45.0) Monocytes (%) (Auto) 9.8 % (1.0-10.0) Eosinophils (%) (Auto) 2.2 % (0.0-3.0) Basophils (%) (Auto) 0.9 % (0.0-2.0) Plan Problems: (1) Hyperkalemia (2) Cellulitis Assessment & Plan: 70-year-old male presented with left foot cellulitis. Prior TMA. Lateral aspect a 1 cm dehiscence identified opening no purulent drainage some serous drainage. Local wound care provided. Edema identified. Vascular imaging pending. Podiatry eval. Okay for diet. Continue antibiotics. No a cute surgical invention. No abscess identified. Plainly cellulitis. Will follow with recommendations thank you for let me participate in patient's care Pt presented on admission with Ulcer lateral L foot(L)0.4cm x (W)1.1cm. Hx of TMA L Foot. Base of wound is shilpa but dry. Edges are dry and peeling. N0 evidence of erythema,induration or fluctuance periwound.L Heel is boggy but b lanchable. R Heel is Boggy with Non-Blanchable erythema(L)5cm x (W)6.5cm. Tx.Plan: Apply Cavilon Skin Barrier to both heels. Cover each Heel with Optifoam drsgs. Change every 7 days and prn. Off-Load heels with Pillow. Reposition at least every 2hours or as tolerated. A marker arrington a lateral soft tissue ulcer near the distal stump. Patient is status post transmetatarsal amputation. There is some susceptibility artifact from a wire located near the tip of the fifth metatarsal stump. There is some increased STIR signal in the fifth metatarsal stump on the coronal images, equivocally visualized on one of 2 sagittal STIR sequences, not corroborated on T1 sequences. This was equivocally evident previously. Well-circumscribed high STIR signal lesions of the talus and the calcaneus are again demonstrated and appear grossly unchanged. Questionable similar lesions are also seen in the distal tibia. As on the prior exam, there is considerable soft tissue edema no definite drainable fluid collection, although evaluation for such is extremely limited. Impression: Extremely limited borderline nondiagnostic exam for reasons described above Evidence of prior transmetatarsal amputation, also previously described Equivocal focal high STIR signal within the fifth metatarsal stump, could represent a small focus of osteomyelitis but it is not corroborated on the T2-weighted images. This is also demonstrated on the previous exam. If there is high clinical suspicion, bone scan may be useful to better characterize Extensive soft tissue edema. 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 Bilaterally, grayscale and duplex images demonstrate no evidence of intraluminal thrombus. Normal phasic Doppler waveforms, demonstrating normal augmentation response and no evidence of valvular insufficiency. Greater saphenous vein(s) and tibial veins are patent. Normal compressibility. Impression: Negative for evidence of lower extremity deep venous thrombosis bilaterally Again demonstrated is prior transmetatarsal amputation. Amputation margins appear clean. Wire is seen adjacent to the fifth metatarsal stump. Or osteolytic lesion demonstrated. No acute fracture. No dislocation. No soft tissue gas. No significant interim change Impression: No acute process (3) Renal insufficiency (4) Diabetic foot ulcer (5) Uncontrolled diabetes mellitus (6) Osteomyelitis of ankle or foot, acute (7) Epileptic seizure, generalized (8) Diabetes mellitus (9) CAD (coronary artery disease) (10) Cardiomyopathy (11) PVD (peripheral vascular disease) (12) History of CVA (cerebrovascular accident) Josafat Narvaez Sep 24, 2020 12:57
[2020-09-24] MEDS: cefTRIAXone 2 GM in D5W 55 ML IVPB SCH (13:45)
--- NOTE | 2020-09-24 14:17 | Internal Med Progress Note ---
Subjective Date of Service: Sep 24, 2020 Physician Name Sukumar Rhodes Attending Physician Babs Najera M.D. Current Medications Medications (Trade) Dose Ordered Sig/Mell Route PRN Reason Start Time Stop Time Status Last Admin Dose Admin Acetaminophen/ Hydrocodone Bitart ([place] 5/325) 1 tab Q6H PRN ORAL Mild Pain (Pain Scale 1-3) 09/19/20 01:30 09/26/20 01:29 Aspirin (Ecotrin) 81 mg DAILY ORAL 09/19/20 09:00 11/03/20 08:59 09/24/20 10:47 Atorvastatin Calcium (Lipitor) 20 mg BEDTIME ORAL 09/19/20 21:00 12/18/20 20:59 09/23/20 20:49 Carvedilol (Coreg) 6.25 mg BID ORAL 09/19/20 09:00 10/19/20 08:59 09/24/20 10:47 Ceftriaxone Sodium 2 gm/ Dextrose 55 ml @ 110 mls/hr Q24H IVPB 09/19/20 13:00 09/26/20 12:59 09/24/20 13:45 Clonidine HCl (Catapres Tab) 0.1 mg Q4H PRN ORAL SBP>160MMHG 09/19/20 01:45 12/18/20 01:44 09/21/20 05:11 Clopidogrel Bisulfate (Plavix) 75 mg DAILY ORAL 09/19/20 09:00 10/19/20 08:59 09/24/20 10:48 Dextrose (Dextrose 50%) 25 ml Q30M PRN IV Hypoglycemia 09/19/20 01:30 12/18/20 01:29 Dextrose (Dextrose 50%) 50 ml Q30M PRN IV Hypoglycemia 09/19/20 01:30 12/18/20 01:29 Docusate Sodium (Colace) 100 mg TWICE A DAY ORAL 09/21/20 18:00 10/21/20 17:59 09/24/20 10:58 Gabapentin (Neurontin) 600 mg BID ORAL 09/19/20 09:00 10/19/20 08:59 09/24/20 10:47 Hydromorphone HCl (Dilaudid) 1 mg Q6H PRN IVP Moderate Pain (Pain Scale 4-6) 09/19/20 01:30 09/26/20 01:29 Hydromorphone HCl (Dilaudid) 2 mg Q6H PRN IVP Severe Pain (Pain Scale 7-10) 09/19/20 01:30 09/26/20 01:29 09/23/20 20:49 Insulin Aspart (NovoLOG) BEFORE MEALS AND HS SUBQ 09/19/20 06:30 12/18/20 06:29 09/24/20 05:30 Insulin Detemir (Levemir) 7 units Q24H SUBQ 09/23/20 15:00 12/22/20 14:59 09/23/20 15:44 Isosorbide Mononitrate (Imdur) 30 mg DAILY ORAL 09/19/20 09:00 10/19/20 08:59 09/24/20 10:46 Ondansetron HCl (Zofran) 4 mg Q4H PRN IVP Nausea & Vomiting 09/19/20 01:30 10/19/20 01:29 Pantoprazole (Protonix) 40 mg DAILY ORAL 09/19/20 09:00 10/19/20 08:59 09/24/20 10:46 Phenytoin (Dilantin) 200 mg Q12HR ORAL 09/19/20 21:00 11/03/20 08:59 09/24/20 10:48 Polyethylene Glycol (Miralax) 17 gm BEDTIME ORAL 09/21/20 21:00 10/21/20 20:59 09/23/20 20:49 Terazosin HCl (Hytrin) 5 mg BEDTIME ORAL 09/19/20 21:00 10/19/20 20:59 09/23/20 20:48 Vancomycin HCl (Vanco pharmacy to dose) 1 ea DAILY PRN MISC Per rx protocol 09/19/20 01:30 10/19/20 01:29 Vancomycin HCl 750 mg/Sodium Chloride 275 ml @ 183.333 mls/hr Q12H IVPB 09/21/20 05:00 09/26/20 04:59 09/24/20 04:56 Zolpidem Tartrate (Ambien) 5 mg BEDTIME PRN ORAL Insomnia 09/19/20 01:45 09/26/20 01:44 09/19/20 20:58 Allergies: Coded Allergies: No Known Allergies (Unverified , 05/07/14) ROS Limited/Unobtainable: No Constitutional: Reports: no symptoms HEENT: Reports: no symptoms Cardiovascular: Reports: no symptoms Respiratory: Reports: no symptoms Gastrointestinal/Abdominal: Reports: no symptoms Genitourinary: Reports: no symptoms Neurologic/Psychiatric: Reports: no symptoms Subjective 70 YO M admitted with left foot pain. Now left foot diabetic ulcer. Cover for Int Larry-Dr Dahl Objective Last Vital Signs Date Time Temp Pulse Resp B/P (MAP) Pulse Ox O2 Delivery O2 Flow Rate FiO2 09/24/20 12:00 77 09/24/20 12:00 97.8 20 186/91 (122) 94 09/24/20 09:00 Room Air Laboratory Tests Test 09/23/20 15:29 09/24/20 07:00 09/24/20 07:50 POC Whole Blood Glucose 303 MG/DL (74-106) H Sodium Level 139 MMOL/L (136-145) Potassium Level 4.3 MMOL/L (3.5-5.1) Chloride Level 103 MMOL/L (98-107) Carbon Dioxide Level 30 MMOL/L (21-32) Anion Gap 6 mmol/L (5-15) Blood Urea Nitrogen 15 mg/dL (7-18) Creatinine 1.3 MG/DL (0.55-1.30) Estimat Glomerular Filtration Rate > 60 mL/min (>60) Glucose Level 281 MG/DL (74-106) H Calcium Level 9.1 MG/DL (8.5-10.1) Phosphorus Level 3.1 MG/DL (2.5-4.9) Magnesium Level 1.8 MG/DL (1.8-2.4) White Blood Count 6.2 K/UL (4.8-10.8) Red Blood Count 4.17 M/UL (4.70-6.10) L Hemoglobin 11.3 G/DL (14.2-18.0) L Hematocrit 36.2 % (42.0-52.0) L Mean Corpuscular Volume 87 FL (80-99) Mean Corpuscular Hemoglobin 27.1 PG (27.0-31.0) Mean Corpuscular Hemoglobin Concent 31.2 G/DL (32.0-36.0) L Red Cell Distribution Width 13.5 % (11.6-14.8) Platelet Count 183 K/UL (150-450) Mean Platelet Volume 7.1 FL (6.5-10.1) Neutrophils (%) (Auto) 63.0 % (45.0-75.0) Lymphocytes (%) (Auto) 24.2 % (20.0-45.0) Monocytes (%) (Auto) 9.8 % (1.0-10.0) Eosinophils (%) (Auto) 2.2 % (0.0-3.0) Basophils (%) (Auto) 0.9 % (0.0-2.0) Intake and Output 09/23/20 09/24/20 19:00 07:00 Intake Total 600 ml Output Total 1400 ml Balance -800 ml Intake Oral 600 ml Output Urine Total 1400 ml Objective PHYSICAL EXAMINATION: GENERAL: Patient is awake, responsive, in no acute distress. HEAD AND NECK: Pupils are equal and reactive to light. Extraocular movements are intact. Neck was supple. No JVD. LUNGS: Good air entry. No wheezing or rales. HEART: S1, S2. Regular rhythm. No murmurs or gallops. ABDOMEN: Soft, nondistended, nontender. Positive bowel sounds. EXTREMITIES: No cyanosis, clubbing. Left foot has TMA with lateral mid foot ulcer. NEUROLOGIC: Cranial nerves II through XII grossly intact. Motor strength 5/5 in all 4 extremities. Gait is ambulatory with a front wheel walker. RECTAL: Refused and deferred. GENITOURINARY: Refused and deferred. PSYCHIATRIC: Mood and affect is intact. Assessment/Plan Assessment/Plan Assessment/Plan Assessment/Plan ASSESSMENT: 1. 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 2. Uncontrolled diabetes type 2. 3. Acute kidney injury. 4. Seizure disorder. 5. Hyperkalemia. 6. Peripheral vascular disease. 7. History of CVA with TIA. 8. Hyponatremia. 9. Hypertension. 10. Dyslipidemia. PLAN: In monitored unit. Broad-spectrum antibiotics: vancomycin and ceftriaxone. Monitor blood glucose level closely. Code status: Full Code. Nephrology = Dr. Babs Najera Infectious Disease consultation = Dr. Herminio Boss Wound consultation = Dr. Josafat Narvaez Pulmonary consultation = Dr. Choudhary Podiatry consultation = Dr. Mic Rogers. discharge planning to SNF-discuss with his daughter regarding SNF placement. Wound care. Monitor laboratory. Sukumar Rhodes MD Sep 24, 2020 14:17
[2020-09-24] MEDS: Levemir Flexpen SUBQ SCH (14:45)
[2020-09-24 16:00] VITALS: BP 131/79
--- NOTE | 2020-09-24 16:55 | Nephrology Progress Note ---
Assessment/Plan Plan #left foot osteo #r/o sepsis #hyponatremia #hyperkalemia #JASMIN #DM #HTN #HLD - DC IVF - add lantus 7 units qday - plan for bone scan - IV antibiotics - pain control - ID eval - podiatry eval - surgery eval - resume home meds - monitor BG - hold metformin - foot MRI noted -time spent 65 min Subjective Subjective Hyperglycemia will start lantus Impression: Extremely limited borderline nondiagnostic exam for reasons described above Evidence of prior transmetatarsal amputation, also previously described Equivocal focal high STIR signal within the fifth metatarsal stump, could represent a small focus of osteomyelitis but it is not corroborated on the T2-weighted im ages. This is also demonstrated on the previous exam. If there is high clinical suspicion, bone scan may be useful to better characterize Extensive soft tissue edema. 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 Objective Objective Last 24 Hour Vital Signs Date Time Temp Pulse Resp B/P (MAP) Pulse Ox O2 Delivery O2 Flow Rate FiO2 09/24/20 16:00 80 09/24/20 16:00 97.9 72 20 131/79 (96) 97 09/24/20 12:00 77 09/24/20 12:00 97.8 85 20 186/91 (122) 94 09/24/20 10:47 84 145/76 09/24/20 10:46 145/76 09/24/20 09:00 Room Air 09/24/20 08:00 92 09/24/20 08:00 97.8 84 20 145/76 (99) 09/24/20 04:00 72 09/24/20 04:00 97.7 87 18 141/70 (93) 94 09/24/20 00:22 98.9 87 18 138/67 (90) 94 09/24/20 00:00 84 09/23/20 21:20 98.0 09/23/20 21:16 Room Air 09/23/20 20:00 98.0 70 20 136/73 (94) 96 09/23/20 20:00 77 09/23/20 17:36 79 119/65 Intake and Output 09/23/20 09/24/20 19:00 07:00 Intake Total 600 ml Output Total 1400 ml Balance -800 ml Intake Oral 600 ml Output Urine Total 1400 ml Laboratory Tests 09/24/20 07:00: Sodium Level 139, Potassium Level 4.3, Chloride Level 103, Carbon Dioxide Level 30, Anion Gap 6, Blood Urea Nitrogen 15, Creatinine 1.3, Estimat Glomerular Filtration Rate > 60, Glucose Level 281H, Calcium Level 9.1, Phosphorus Level 3.1, Magnesium Level 1.8 09/24/20 07:50: White Blood Count 6.2, Red Blood Count 4.17L, Hemoglobin 11.3L, Hematocrit 36.2L , Mean Corpuscular Volume 87, Mean Corpuscular Hemoglobin 27.1, Mean Corpuscular Hemoglobin Concent 31.2L, Red Cell Distribution Width 13.5, Platelet Count 183, Mean Platelet Volume 7.1, Neutrophils (%) (Auto) 63.0, Lymphocytes (%) (Auto) 24.2, Monocytes (%) (Auto) 9.8, Eosinophils (%) (Auto) 2.2, Basophils (%) (Auto) 0.9 Height (Feet): 6 Height (Inches): 0.00 Weight (Pounds): 150 Objective General: Patient is laying in bed with normal work of breathing on room air HEENT: Head exam reveals that the head is normocephalic, atraumatic without deformity or unusual swelling. Pupils are PERRLA. CHEST AND LUNGS: Reveals clear, normal, symmetrical breath sounds with no adventitious sounds. CARDIOVASCULAR: Reveals normal S1, S2 without murmurs, rubs, or clicks. ABDOMEN: Soft with no tenderness or organomegaly. RECTAL: Deferred. MUSCULOSKELETAL: There is no tenderness to palpation. Range of motion is normal. SKIN: All left foot toes amputated. Small chronic wound on the lateral aspect of left foot without erythema or induration. NEUROLOGICAL: Alert and oriented x3 , nonfocal Babs Najera M.D. Sep 24, 2020 16:54
[2020-09-24] MEDS: Atorvastatin 20mg tab ORAL SCH (21:23)
[2020-09-24] MEDS: Miralax 17gm pkt ORAL SCH (21:24)
[2020-09-24] MEDS: Zolpidem 5mg tab ORAL PRN (22:37)
[2020-09-25 00:27] VITALS: BP 113/74
--- NOTE | 2020-09-25 02:14 | History and Physical Report ---
DATE OF ADMISSION: 09/18/2020 HISTORY OF PRESENT ILLNESS: This is a 70-year-old male who came to the emergency room for having a foot infection and it was possible that he has osteomyelitis. The patient also has diabetes, poor compliance. The patient has been my patient for the last 1 year. The patient was in , went home for a few days, came back here where he was found he has possible pneumonia. The patient also has cough with sputum production. He has no fever, no chills. Discussed with the daughter. PAST MEDICAL HISTORY: Significant for hypertension, diabetes, and chronic pain syndrome. MEDICATIONS: See the list. ALLERGIES: NKA. FAMILY HISTORY: Noncontributory. SOCIAL HISTORY: Lives at [facility] . REVIEW OF SYSTEMS: Generalized weakness, slightly confused. PHYSICAL EXAMINATION: Blood pressure is 130/70, pulse 74, respirations 18 to 24, and temperature, no fever. SKIN: Good skin turgor. HEENT: NAD. CHEST: Bilateral crackles. CARDIOVASCULAR: Regular rhythm. Tachycardia. ABDOMEN: Soft. Positive bowel sounds. EXTREMITIES: The patient also was found to have hyperkalemia and hyperglycemia and renal insufficiency. The patient has a foot ulcer. GENITOURINARY: Deferred. ASSESSMENT AND PLAN: 1. Nonhealing ulcer. 2. Hyperkalemia has resolved. 3. Possible pneumonia. 4. Renal insufficiency. PLAN: Patient is to currently continue antibiotic. Discussed with the daughter. Discussed with charge nurse. Sending the name renata ulrich. We will give input to the daughter tomorrow. Meanwhile, we will currently continue current treatment. Jaden Penn M.D. DR: CARROL JOB#: [id number] CC:
[2020-09-25 04:00] VITALS: BP 142/65
[2020-09-25] MEDS: Vancomycin 750mg/NS 275ml IVPB SCH ×4 (05:33→17:20)
[2020-09-25] MEDS: NovoLOG Insulin Flexpen SUBQ SCH ×4 (06:36→21:20)
--- NOTE | 2020-09-25 07:18 | NUR ---
NURSE HAND-OFF REPORT: Report given to ELIESER Dorman
[2020-09-25 07:58] LABS: BASOPHILS % (AUTO) 1.1 % (0.0-2.0); EOSINOPHILS % (AUTO) 3.2 % (0.0-3.0); HEMATOCRIT 34.2 % (42.0-52.0); HEMOGLOBIN 10.8 G/DL (14.2-18.0); LYMPHOCYTES % (AUTO) 26.3 % (20.0-45.0); MEAN CORPUSCULAR VOLUME 86 FL (80-99); MONOCYTES % (AUTO) 8.3 % (1.0-10.0); NEUTROPHILS % (AUTO) 61.2 % (45.0-75.0); PLATELET COUNT 191 K/UL (150-450); RED BLOOD COUNT 3.98 M/UL (4.70-6.10); RED CELL DISTRIBUTION WIDTH 13.6 % (11.6-14.8); WHITE BLOOD COUNT 5.4 K/UL (4.8-10.8)
[2020-09-25 08:00] VITALS: BP 158/80
--- NOTE | 2020-09-25 08:01 | NUR ---
NURSE NOTES: Received patient report from Yasmin, RN. Patient is AO x3 awake and able to make needs known. Patient is on room air and shows no signs of respiratory distress at the time. IV is patent and flushed. There are no signs of erythema, infiltration, or bleeding. Bed is in the lowest position, call light is within reach, side rails up x3. Will continue plan of care.
[2020-09-25 08:21] LABS: ANION GAP 6 mmol/L (5-15); BLOOD UREA NITROGEN 14 mg/dL (7-18); CALCIUM 9.2 MG/DL (8.5-10.1); CARBON DIOXIDE 28 MMOL/L (21-32); CHLORIDE 102 MMOL/L (98-107); CREATININE 1.1 MG/DL (0.55-1.30); POTASSIUM 4.1 MMOL/L (3.5-5.1); SODIUM 135 MMOL/L (136-145)
[2020-09-25] MEDS: Aspirin EC 81mg tab ORAL SCH (09:05)
[2020-09-25] MEDS: Phenytoin 100mg cap ORAL SCH ×2 (09:05→21:00)
[2020-09-25] MEDS: Carvedilol 6.25mg Tab ORAL SCH ×2 (09:05→17:19)
[2020-09-25] MEDS: Docusate 100mg cap ORAL SCH ×2 (09:05→17:19)
[2020-09-25] MEDS: Imdur 30mg tab ORAL SCH (09:05)
--- NOTE | 2020-09-25 10:46 | Surgery Progress Note ---
Surgery Progress Note Subjective Symptoms: improved, tolerating diet, passing flatus, BM Objective Last 24 Hour Vital Signs Date Time Temp Pulse Resp B/P (MAP) Pulse Ox O2 Delivery O2 Flow Rate FiO2 09/25/20 09:05 158/80 09/25/20 09:05 87 158/80 09/25/20 09:00 Room Air 09/25/20 08:00 84 09/25/20 08:00 97.8 87 20 158/80 (106) 94 09/25/20 04:00 98.1 84 20 142/65 (90) 94 09/25/20 04:00 80 09/25/20 00:27 98.2 76 18 113/74 (87) 96 09/25/20 00:00 73 09/24/20 21:00 Room Air 09/24/20 20:00 87 09/24/20 17:32 80 131/79 09/24/20 16:00 80 09/24/20 16:00 97.9 72 20 131/79 (96) 97 09/24/20 12:00 77 09/24/20 12:00 97.8 85 20 186/91 (122) 94 09/24/20 10:47 84 145/76 I&O l Intake and Output 09/24/20 09/25/20 19:00 07:00 Intake Total 800 ml 400 ml Output Total 2000 ml Balance -1200 ml 400 ml Intake Oral 800 ml 400 ml Output Urine Total 2000 ml # Voids 1 5 Dressing: dry Wound: clean Cardiovascular: RSR Respiratory: clear Abdomen: soft, non-tender, present bowel sounds, non-distended Extremities: no edema, no tenderness, no cyanosis Laboratory Tests Test 09/25/20 07:40 White Blood Count 5.4 K/UL (4.8-10.8) Red Blood Count 3.98 M/UL (4.70-6.10) L Hemoglobin 10.8 G/DL (14.2-18.0) L Hematocrit 34.2 % (42.0-52.0) L Mean Corpuscular Volume 86 FL (80-99) Mean Corpuscular Hemoglobin 27.0 PG (27.0-31.0) Mean Corpuscular Hemoglobin Concent 31.5 G/DL (32.0-36.0) L Red Cell Distribution Width 13.6 % (11.6-14.8) Platelet Count 191 K/UL (150-450) Mean Platelet Volume 7.3 FL (6.5-10.1) Neutrophils (%) (Auto) 61.2 % (45.0-75.0) Lymphocytes (%) (Auto) 26.3 % (20.0-45.0) Monocytes (%) (Auto) 8.3 % (1.0-10.0) Eosinophils (%) (Auto) 3.2 % (0.0-3.0) H Basophils (%) (Auto) 1.1 % (0.0-2.0) Sodium Level 135 MMOL/L (136-145) L Potassium Level 4.1 MMOL/L (3.5-5.1) Chloride Level 102 MMOL/L (98-107) Carbon Dioxide Level 28 MMOL/L (21-32) Anion Gap 6 mmol/L (5-15) Blood Urea Nitrogen 14 mg/dL (7-18) Creatinine 1.1 MG/DL (0.55-1.30) Estimat Glomerular Filtration Rate > 60 mL/min (>60) Glucose Level 299 MG/DL (74-106) H Calcium Level 9.2 MG/DL (8.5-10.1) Plan Problems: (1) Hyperkalemia (2) Cellulitis Assessment & Plan: 70-year-old male presented with left foot cellulitis. Prior TMA. Lateral aspect a 1 cm dehiscence identified opening no purulent drainage some serous drainage. Local wound care provided. Edema identified. Vascular imaging pending. Podiatry eval. Okay for diet. Continue antibiotics. No acute surgical invention. No abscess identified. Plainly cellulitis. Will follow with recommendations thank you for let me participate in patient's care Pt presented on admission with Ulcer lateral L foot(L)0.4cm x (W)1.1cm. Hx of TMA L Foot. Base of wound is shilpa but dry. Edges are dry and peeling. N0 evidence of erythema,induration or fluctuance periwound.L Heel is boggy but blanchable. R Heel is Boggy with Non-Blanchable erythema(L)5cm x (W)6.5cm. Tx.Plan: Apply Cavilon Skin Barrier to both heels. Cover each Heel with Optifoam drsgs. Change every 7 days and prn. Off-Load heels with Pillow. Reposition at least every 2hours or as tolerated. A marker arrington a lateral soft tissue ulcer near the distal stump. Patient is status post transmetatarsal amputation. There is some susceptibility artifact from a w bigg located near the tip of the fifth metatarsal stump. There is some increased STIR signal in the fifth metatarsal stump on the coronal images, equivocally visualized on one of 2 sagittal STIR sequences, not corroborated on T1 sequences. This was equivocally evident previously. Well-circumscribed high STIR signal lesions of the talus and the calcaneus are again demonstrated and appear grossly unchanged. Questionable similar lesions are also seen in the distal tibia. As on the prior exam, there is considerable soft tissue edema no definite drainable fluid collection, although evaluation for such is extremely limited. Impression: Extremely limited borderline nondiagnostic exam for reasons described above Evidence of prior transmetatarsal amputation, also previously described Equivocal focal high STIR signal within the fifth metatarsal stump, could represent a small focus of osteomyelitis but it is not corroborated on the T2-weighted images. This is also demonstrated on the previous exam. If there is high clinical suspicion, bone scan may be useful to better characterize Extensive soft tissue edema. 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 Bilaterally, grayscale and duplex images demonstrate no evidence of intraluminal thrombus. Normal phasic Doppler waveforms, demonstrating normal augmentation response and no evidence of valvular insufficiency. Greater saphenous vein(s) and tibial veins are patent. Normal compressibility. Impression: Negative for evidence of lower extremity deep venous thrombosis bilaterally Again demonstrated is prior transmetatarsal amputation. Amputation margins appear clean. Wire is seen adjacent to the fifth metatarsal stump. Or osteolytic lesion demonstrated. No acute fracture. No dislocation. No soft tissue gas. No significant interim change Impression: No acute process resolving d/c planning abx as per id/pcp (3) Renal insufficiency (4) Diabetic foot ulcer (5) Uncontrolled diabetes mellitus (6) Osteomyelitis of ankle or foot, acute (7) Epileptic seizure, generalized (8) Diabetes mellitus (9) CAD (coronary artery disease) (10) Cardiomyopathy (11) PVD (peripheral vascular disease) (12) History of CVA (cerebrovascular accident) Josafat Narvaez 22, 2021 10:46
--- NOTE | 2020-09-25 11:36 | Infectious Diseases Prog Note ---
Assessment/Plan Assessment/Plan IMPRESSION: 1. Diabetic foot ulcer, cellulitis, ?osteomyelitis. 2. Diabetes mellitus with hyperglycemia. 3. Hyperkalemia. 4. Acute renal failure. 5. Peripheral vascular disease. 6. Lung infiltrates, ? pneumonia RECOMMENDATION: Continue IV vancomycin & ceftriaxone. Inconclusive MRI of the foot because of motion artifact Waiting for Bone scan Rapid COVID19 test: negative Subjective ROS Limited/Unobtainable: No Constitutional: Reports: no symptoms, other - feels better Respiratory: Reports: dry cough Gastrointestinal/Abdominal: Reports: no symptoms Genitourinary: Reports: no symptoms Musculoskeletal: Reports: pain, other - decreased Allergies: Coded Allergies: No Known Allergies (Unverified , 05/07/14) Objective Last 24 Hour Vital Signs Date Time Temp Pulse Resp B/P (MAP) Pulse Ox O2 Delivery O2 Flow Rate FiO2 09/25/20 09:05 158/80 09/25/20 09:05 87 158/80 09/25/20 09:00 Room Air 09/25/20 08:00 84 09/25/20 08:00 97.8 87 20 158/80 (106) 94 09/25/20 04:00 98.1 84 20 142/65 (90) 94 09/25/20 04:00 80 09/25/20 00:27 98.2 76 18 113/74 (87) 96 09/25/20 00:00 73 09/24/20 21:00 Room Air 09/24/20 20:00 87 09/24/20 17:32 80 131/79 09/24/20 16:00 80 09/24/20 16:00 97.9 72 20 131/79 (96) 97 09/24/20 12:00 77 09/24/20 12:00 97.8 85 20 186/91 (122) 94 Height (Feet): 6 Height (Inches): 0.00 Weight (Pounds): 150 HEENT: mucous membranes moist Respiratory/Chest: lungs clear Cardiovascular: normal rate Abdomen: soft, non tender Extremities: no edema, other - left toe amputations Skin: other - lateral left foot ulcer Neurologic/Psychiatric: alert, oriented x 3, responsive Laboratory Tests Test 09/25/20 07:40 White Blood Count 5.4 K/UL (4.8-10.8) Red Blood Count 3.98 M/UL (4.70-6.10) L Hemoglobin 10.8 G/DL (14.2-18.0) L Hematocrit 34.2 % (42.0-52.0) L Mean Corpuscular Volume 86 FL (80-99) Mean Corpuscular Hemoglobin 27.0 PG (27.0-31.0) Mean Corpuscular Hemoglobin Concent 31.5 G/DL (32.0-36.0) L Red Cell Distribution Width 13.6 % (11.6-14.8) Platelet Count 191 K/UL (150-450) Mean Platelet Volume 7.3 FL (6.5-10.1) Neutrophils (%) (Auto) 61.2 % (45.0-75.0) Lymphocytes (%) (Auto) 26.3 % (20.0-45.0) Monocytes (%) (Auto) 8.3 % (1.0-10.0) Eosinophils (%) (Auto) 3.2 % (0.0-3.0) H Basophils (%) (Auto) 1.1 % (0.0-2.0) Sodium Level 135 MMOL/L (136-145) L Potassium Level 4.1 MMOL/L (3.5-5.1) Chloride Level 102 MMOL/L (98-107) Carbon Dioxide Level 28 MMOL/L (21-32) Anion Gap 6 mmol/L (5-15) Blood Urea Nitrogen 14 mg/dL (7-18) Creatinine 1.1 MG/DL (0.55-1.30) Estimat Glomerular Filtration Rate > 60 mL/min (>60) Glucose Level 299 MG/DL (74-106) H Calcium Level 9.2 MG/DL (8.5-10.1) Current Medications Medications (Trade) Dose Ordered Sig/Mell Route PRN Reason Start Time Stop Time Status Last Admin Dose Admin Acetaminophen/ Hydrocodone Bitart ([place] 5/325) 1 tab Q6H PRN ORAL Mild Pain (Pain Scale 1-3) 09/19/20 01:30 09/26/20 01:29 09/25/20 03:02 Aspirin (Ecotrin) 81 mg DAILY ORAL 09/19/20 09:00 11/03/20 08:59 09/25/20 09:05 Atorvastatin Calcium (Lipitor) 20 mg BEDTIME ORAL 09/19/20 21:00 12/18/20 20:59 09/24/20 21:23 Carvedilol (Coreg) 6.25 mg BID ORAL 09/19/20 09:00 10/19/20 08:59 09/25/20 09:05 Ceftriaxone Sodium 2 gm/ Dextrose 55 ml @ 110 mls/hr Q24H IVPB 09/19/20 13:00 09/26/20 12:59 09/24/20 13:45 Clonidine HCl (Catapres Tab) 0.1 mg Q4H PRN ORAL SBP>160MMHG 09/19/20 01:45 12/18/20 01:44 09/21/20 05:11 Clopidogrel Bisulfate (Plavix) 75 mg DAILY ORAL 09/19/20 09:00 10/19/20 08:59 09/25/20 09:05 Dextrose (Dextrose 50%) 25 ml Q30M PRN IV Hypoglycemia 09/19/20 01:30 12/18/20 01:29 Dextrose (Dextrose 50%) 50 ml Q30M PRN IV Hypoglycemia 09/19/20 01:30 12/18/20 01:29 Docusate Sodium (Colace) 100 mg TWICE A DAY ORAL 09/21/20 18:00 10/21/20 17:59 09/25/20 09:05 Gabapentin (Neurontin) 600 mg BID ORAL 09/19/20 09:00 10/19/20 08:59 09/25/20 09:05 Hydromorphone HCl (Dilaudid) 1 mg Q6H PRN IVP Moderate Pain (Pain Scale 4-6) 09/24/20 14:45 09/26/20 01:29 Hydromorphone HCl (Dilaudid) 2 mg Q6H PRN IVP Severe Pain (Pain Scale 7-10) 09/19/20 01:30 09/26/20 01:29 09/24/20 21:38 Insulin Aspart (NovoLOG) BEFORE MEALS AND HS SUBQ 09/19/20 06:30 12/18/20 06:29 09/25/20 11:26 Insulin Detemir (Levemir) 15 units Q24H SUBQ 09/25/20 15:00 12/24/20 14:59 Isosorbide Mononitrate (Imdur) 30 mg DAILY ORAL 09/19/20 09:00 10/19/20 08:59 09/25/20 09:05 Ondansetron HCl (Zofran) 4 mg Q4H PRN IVP Nausea & Vomiting 09/19/20 01:30 10/19/20 01:29 Pantoprazole (Protonix) 40 mg DAILY ORAL 09/19/20 09:00 10/19/20 08:59 09/25/20 09:05 Phenytoin (Dilantin) 200 mg Q12HR ORAL 09/19/20 21:00 11/03/20 08:59 09/25/20 09:05 Polyethylene Glycol (Miralax) 17 gm BEDTIME ORAL 09/21/20 21:00 10/21/20 20:59 09/24/20 21:24 Terazosin HCl (Hytrin) 5 mg BEDTIME ORAL 09/19/20 21:00 10/19/20 20:59 09/24/20 21:23 Vancomycin HCl (Vanco pharmacy to dose) 1 ea DAILY PRN MISC Per rx protocol 09/19/20 01:30 10/19/20 01:29 Vancomycin HCl 750 mg/Sodium Chloride 275 ml @ 183.333 mls/hr Q12H IVPB 09/21/20 05:00 09/26/20 04:59 09/25/20 05:33 Zolpidem Tartrate (Ambien) 5 mg BEDTIME PRN ORAL Insomnia 09/19/20 01:45 09/26/20 01:44 09/24/20 22:37 Herminio Boss MD Sep 25, 2020 11:36
[2020-09-25 12:00] VITALS: BP 159/78
--- NOTE | 2020-09-25 12:04 | Pulmonology Progress Note ---
Subjective ROS Limited/Unobtainable: No Interval Events: None major reported per nursing Constitutional: Reports: no symptoms, other - feels better HEENT: Repors: no symptoms Respiratory: Reports: no symptoms Cardiovascular: Reports: no symptoms Gastrointestinal/Abdominal: Reports: no symptoms Musculoskeletal: Reports: pain, other - decreased Allergies: Coded Allergies: No Known Allergies (Unverified , 05/07/14) Objective Last 24 Hour Vital Signs Date Time Temp Pulse Resp B/P (MAP) Pulse Ox O2 Delivery O2 Flow Rate FiO2 09/25/20 09:05 158/80 09/25/20 09:05 87 158/80 09/25/20 09:00 Room Air 09/25/20 08:00 84 09/25/20 08:00 97.8 87 20 158/80 (106) 94 09/25/20 04:00 98.1 84 20 142/65 (90) 94 09/25/20 04:00 80 09/25/20 00:27 98.2 76 18 113/74 (87) 96 09/25/20 00:00 73 09/24/20 21:00 Room Air 09/24/20 20:00 87 09/24/20 17:32 80 131/79 09/24/20 16:00 80 09/24/20 16:00 97.9 72 20 131/79 (96) 97 Intake and Output 09/24/20 09/25/20 19:00 07:00 Intake Total 800 ml 400 ml Output Total 2000 ml Balance -1200 ml 400 ml Intake Oral 800 ml 400 ml Output Urine Total 2000 ml # Voids 1 5 General Appearance: no acute distress HEENT: atraumatic Respiratory: lungs clear Cardiovascular: normal rate Abdomen: soft, non tender Extremities: other - left foot toes amputated Skin: ulcers - lateral aspect of L foot Laboratory Tests 09/25/20 07:40: White Blood Count 5.4, Red Blood Count 3.98L, Hemoglobin 10.8L, Hematocrit 34.2L , Mean Corpuscular Volume 86, Mean Corpuscular Hemoglobin 27.0, Mean Corpuscular Hemoglobin Concent 31.5L, Red Cell Distribution Width 13.6, Platelet Count 191, Mean Platelet Volume 7.3, Neutrophils (%) (Auto) 61.2, Lymphocytes (%) (Auto) 26.3, Monocytes (%) (Auto) 8.3, Eosinophils (%) (Auto) 3.2H, Basophils (%) (Auto) 1.1, Sodium Level 135L, Potassium Level 4.1, Chloride Level 102, Carbon Dioxide Level 28, Anion Gap 6, Blood Urea Nitrogen 14, Creatinine 1.1, Estimat Glomerular Filtration Rate > 60, Glucose Level 299H, Calcium Level 9.2 Current Medications Medications (Trade) Dose Ordered Sig/Mell Route PRN Reason Start Time Stop Time Status Last Admin Dose Admin Acetaminophen (Tylenol) 650 mg Q6H PRN ORAL Temp >100.5 09/25/20 12:00 10/25/20 11:59 Acetaminophen/ Hydrocodone Bitart ([place] 5/325) 1 tab Q6H PRN ORAL Mild Pain (Pain Scale 1-3) 09/19/20 01:30 09/26/20 01:29 09/25/20 03:02 Aspirin (Ecotrin) 81 mg DAILY ORAL 09/19/20 09:00 11/03/20 08:59 09/25/20 09:05 Atorvastatin Calcium (Lipitor) 20 mg BEDTIME ORAL 09/19/20 21:00 12/18/20 20:59 09/24/20 21:23 Carvedilol (Coreg) 6.25 mg BID ORAL 09/19/20 09:00 10/19/20 08:59 09/25/20 09:05 Ceftriaxone Sodium 2 gm/ Dextrose 55 ml @ 110 mls/hr Q24H IVPB 09/19/20 13:00 09/26/20 12:59 09/24/20 13:45 Clonidine HCl (Catapres Tab) 0.1 mg Q4H PRN ORAL SBP>160MMHG 09/19/20 01:45 12/18/20 01:44 09/21/20 05:11 Clopidogrel Bisulfate (Plavix) 75 mg DAILY ORAL 09/19/20 09:00 10/19/20 08:59 09/25/20 09:05 Dextrose (Dextrose 50%) 25 ml Q30M PRN IV Hypoglycemia 09/19/20 01:30 12/18/20 01:29 Dextrose (Dextrose 50%) 50 ml Q30M PRN IV Hypoglycemia 09/19/20 01:30 12/18/20 01:29 Docusate Sodium (Colace) 100 mg TWICE A DAY ORAL 09/21/20 18:00 10/21/20 17:59 09/25/20 09:05 Gabapentin (Neurontin) 600 mg BID ORAL 09/19/20 09:00 10/19/20 08:59 09/25/20 09:05 Hydromorphone HCl (Dilaudid) 1 mg Q6H PRN IVP Moderate Pain (Pain Scale 4-6) 09/24/20 14:45 09/26/20 01:29 Hydromorphone HCl (Dilaudid) 2 mg Q6H PRN IVP Severe Pain (Pain Scale 7-10) 09/19/20 01:30 09/26/20 01:29 09/24/20 21:38 Insulin Aspart (NovoLOG) BEFORE MEALS AND HS SUBQ 09/19/20 06:30 12/18/20 06:29 09/25/20 11:26 Insulin Detemir (Levemir) 15 units Q24H SUBQ 09/25/20 15:00 12/24/20 14:59 Isosorbide Mononitrate (Imdur) 30 mg DAILY ORAL 09/19/20 09:00 10/19/20 08:59 09/25/20 09:05 Ondansetron HCl (Zofran) 4 mg Q4H PRN IVP Nausea & Vomiting 09/19/20 01:30 10/19/20 01:29 Pantoprazole (Protonix) 40 mg DAILY ORAL 09/19/20 09:00 10/19/20 08:59 09/25/20 09:05 Phenytoin (Dilantin) 200 mg Q12HR ORAL 09/19/20 21:00 11/03/20 08:59 09/25/20 09:05 Polyethylene Glycol (Miralax) 17 gm BEDTIME ORAL 09/21/20 21:00 10/21/20 20:59 09/24/20 21:24 Terazosin HCl (Hytrin) 5 mg BEDTIME ORAL 09/19/20 21:00 10/19/20 20:59 09/24/20 21:23 Vancomycin HCl (Vanco pharmacy to dose) 1 ea DAILY PRN MISC Per rx protocol 09/19/20 01:30 10/19/20 01:29 Vancomycin HCl 750 mg/Sodium Chloride 275 ml @ 183.333 mls/hr Q12H IVPB 09/21/20 05:00 09/26/20 04:59 09/25/20 05:33 Zolpidem Tartrate (Ambien) 5 mg BEDTIME PRN ORAL Insomnia 09/19/20 01:45 09/26/20 01:44 09/24/20 22:37 Assessment/Plan Assessment/Plan 1. Diabetic foot ulcer - on Abx - MRI of the L foot (09/20) suspicious for osteomyelitis -> f/u bone scan (09/25) -Wound care following 2. Uncontrolled diabetes mellitus with hyperglycemia -BG control -A1c 12.2 3. Hyperkalemia - resolved 4. Acute renal failure - per primary MD 5 .History of seizure -Continue Dilantin 6. Risk of aspiration pneumonia given history of seizure -Monitor for seizure -Monitor for fever 7. ex-smoker 8. Lung infiltrates, ? pneumonia - COVID-19 negative (09/20) - on Abx The care for this patient was discussed with my supervising physician. Time spent for this case was approximately 31 minutes. Asher Parikh Sep 25, 2020 12:04
--- NOTE | 2020-09-25 12:15 | NUR ---
NURSE NOTES: Patient taken down for bone scan. No signs of distress or pain.
[2020-09-25] MEDS: cefTRIAXone 2 GM in D5W 55 ML IVPB SCH (13:54)
[2020-09-25] MEDS ORDERED: Zolpidem 5mg tab ORAL PRN (14:15)
--- NOTE | 2020-09-25 14:31 | Nephrology Progress Note ---
Assessment/Plan Plan #left foot osteo #r/o sepsis #hyponatremia #hyperkalemia #JASMIN #DM #HTN #HLD - DC IVF - add lantus 7 units qday - plan for bone scan - IV antibiotics - pain control - ID eval - podiatry eval - surgery eval - resume home meds - monitor BG - hold metformin - foot MRI noted -time spent 65 min Subjective ROS Limited/Unobtainable: No Constitutional: Reports: weakness HEENT: Denies: no symptoms, eye pain, blurred vision, tearing, double vision, ear pain, ear discharge, nose pain, nose congestion, throat pain, throat swelling, mouth pain, mouth swelling, other Genitourinary: Denies: no symptoms, burning, discharge, frequency, flank pain, hematuria, incontinence, pain, urgency, other Neurologic/Psychiatric: Denies: no symptoms, anxiety, depressed, emotional problems, headache, numbness, paresthesia, pre-existing deficit, seizure, tingling, tremors, weakness, other Subjective Hyperglycemia will start lantus Impression: Extremely limited borderline nondiagnostic exam for reasons described above Evidence of prior transmetatarsal amputation, also previously described Equivocal focal high STIR signal within the fifth metatarsal stump, could represent a small focus of osteomyelitis but it is not corroborated on the T2-weighted images. This is also demonstrated on the previous exam. If there is high clinical suspicion, bone scan may be useful to better characterize Extensive soft tissue edema. 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 Objective Objective Last 24 Hour Vital Signs Date Time Temp Pulse Resp B/P (MAP) Pulse Ox O2 Delivery O2 Flow Rate FiO2 09/25/20 12:00 83 09/25/20 12:00 97.9 84 20 159/78 (105) 99 09/25/20 09:05 158/80 09/25/20 09:05 87 158/80 09/25/20 09:00 Room Air 09/25/20 08:00 84 09/25/20 08:00 97.8 87 20 158/80 (106) 94 09/25/20 04:00 98.1 84 20 142/65 (90) 94 09/25/20 04:00 80 09/25/20 00:27 98.2 76 18 113/74 (87) 96 09/25/20 00:00 73 09/24/20 21:00 Room Air 09/24/20 20:00 87 09/24/20 17:32 80 131/79 09/24/20 16:00 80 09/24/20 16:00 97.9 72 20 131/79 (96) 97 Intake and Output 09/24/20 09/25/20 19:00 07:00 Intake Total 800 ml 400 ml Output Total 2000 ml Balance -1200 ml 400 ml Intake Oral 800 ml 400 ml Output Urine Total 2000 ml # Voids 1 5 Laboratory Tests 09/25/20 07:40: White Blood Count 5.4, Red Blood Count 3.98L, Hemoglobin 10.8L, Hematocrit 34.2L , Mean Corpuscular Volume 86, Mean Corpuscular Hemoglobin 27.0, Mean Corpuscular Hemoglobin Concent 31.5L, Red Cell Distribution Width 13.6, Platelet Count 191, Mean Platelet Volume 7.3, Neutrophils (%) (Auto) 61.2, Lymphocytes (%) (Auto) 26.3, Monocytes (%) (Auto) 8.3, Eosinophils (%) (Auto) 3.2H, Basophils (%) (Auto) 1.1, Sodium Level 135L, Potassium Level 4.1, Chloride Level 102, Carbon Dioxide Level 28, Anion Gap 6, Blood Urea Nitrogen 14, Creatinine 1.1, Estimat Glomerular Filtration Rate > 60, Glucose Level 299H, Calcium Level 9.2 Height (Feet): 6 Height (Inches): 0.00 Weight (Pounds): 150 Objective General: Patient is laying in bed with normal work of breathing on room air HEENT: Head exam reveals that the head is normocephalic, atraumatic without deformity or unusual swelling. Pupils are PERRLA. CHEST AND LUNGS: Reveals clear, normal, symmetrical breath sounds with no adventitious sounds. CARDIOVASCULAR: Reveals normal S1, S2 without murmurs, rubs, or clicks. ABDOMEN: Soft with no tenderness or organomegaly. RECTAL: Deferred. MUSCULOSKELETAL: There is no tenderness to palpation. Range of motion is normal. SKIN: All left foot toes amputated. Small chronic wound on the lateral aspect of left foot without erythema or induration. NEUROLOGICAL: Alert and oriented x3 , nonfocal Pirouz,Aslan M.D. Sep 25, 2020 14:31
--- NOTE | 2020-09-25 15:52 | NUR ---
NURSE NOTES: Dr. Najera asked patient if he knew Dr. Penn. Patient said he did not. Patient care will stay as is per Dr. Najera.
[2020-09-25 16:00] VITALS: BP 130/77
[2020-09-25] MEDS: Levemir Flexpen SUBQ SCH (16:21)
[2020-09-25] MEDS ORDERED: 1/2 NS 1000ml IV ONE (18:17)
--- NOTE | 2020-09-25 18:42 | Internal Med Progress Note ---
Subjective Date of Service: Sep 25, 2020 Physician Name Sukumar Rhodes Attending Physician Babs Najera M.D. Current Medications Medications (Trade) Dose Ordered Sig/Mell Route PRN Reason Start Time Stop Time Status Last Admin Dose Admin Acetaminophen (Tylenol) 650 mg Q6H PRN ORAL Temp >100.5 09/25/20 12:00 10/25/20 11:59 Acetaminophen/ Hydrocodone Bitart ([place] 5/325) 1 tab Q6H PRN ORAL Mild Pain (Pain Scale 1-3) 09/25/20 14:15 10/02/20 14:14 Aspirin (Ecotrin) 81 mg DAILY ORAL 09/19/20 09:00 11/03/20 08:59 09/25/20 09:05 Atorvastatin Calcium (Lipitor) 20 mg BEDTIME ORAL 09/19/20 21:00 12/18/20 20:59 09/24/20 21:23 Carvedilol (Coreg) 6.25 mg BID ORAL 09/19/20 09:00 10/19/20 08:59 09/25/20 17:19 Ceftriaxone Sodium 2 gm/ Dextrose 55 ml @ 110 mls/hr Q24H IVPB 09/19/20 13:00 10/02/20 23:59 09/25/20 13:54 Clonidine HCl (Catapres Tab) 0.1 mg Q4H PRN ORAL SBP>160MMHG 09/19/20 01:45 12/18/20 01:44 09/21/20 05:11 Clopidogrel Bisulfate (Plavix) 75 mg DAILY ORAL 09/19/20 09:00 10/19/20 08:59 09/25/20 09:05 Dextrose (Dextrose 50%) 25 ml Q30M PRN IV Hypoglycemia 09/19/20 01:30 12/18/20 01:29 Dextrose (Dextrose 50%) 50 ml Q30M PRN IV Hypoglycemia 09/19/20 01:30 12/18/20 01:29 Docusate Sodium (Colace) 100 mg TWICE A DAY ORAL 09/21/20 18:00 10/21/20 17:59 09/25/20 17:19 Gabapentin (Neurontin) 600 mg BID ORAL 09/19/20 09:00 10/19/20 08:59 09/25/20 17:19 Hydromorphone HCl (Dilaudid) 1 mg Q6H PRN IVP Moderate Pain (Pain Scale 4-6) 09/25/20 14:45 09/27/20 01:29 Hydromorphone HCl (Dilaudid) 2 mg Q6H PRN IVP Severe Pain (Pain Scale 7-10) 09/19/20 01:30 09/26/20 01:29 09/24/20 21:38 Insulin Aspart (NovoLOG) BEFORE MEALS AND HS SUBQ 09/19/20 06:30 12/18/20 06:29 09/25/20 16:23 Insulin Detemir (Levemir) 15 units Q24H SUBQ 09/25/20 15:00 12/24/20 14:59 09/25/20 16:21 Isosorbide Mononitrate (Imdur) 30 mg DAILY ORAL 09/19/20 09:00 10/19/20 08:59 09/25/20 09:05 Ondansetron HCl (Zofran) 4 mg Q4H PRN IVP Nausea & Vomiting 09/19/20 01:30 10/19/20 01:29 Pantoprazole (Protonix) 40 mg DAILY ORAL 09/19/20 09:00 10/19/20 08:59 09/25/20 09:05 Phenytoin (Dilantin) 200 mg Q12HR ORAL 09/19/20 21:00 11/03/20 08:59 09/25/20 09:05 Polyethylene Glycol (Miralax) 17 gm BEDTIME ORAL 09/21/20 21:00 10/21/20 20:59 09/24/20 21:24 Terazosin HCl (Hytrin) 5 mg BEDTIME ORAL 09/19/20 21:00 10/19/20 20:59 09/24/20 21:23 Vancomycin HCl (Vanco pharmacy to dose) 1 ea DAILY PRN MISC Per rx protocol 09/19/20 01:30 10/19/20 01:29 Vancomycin HCl 750 mg/Sodium Chloride 275 ml @ 183.333 mls/hr Q12H IVPB 09/21/20 05:00 09/30/20 23:59 09/25/20 17:20 Zolpidem Tartrate (Ambien) 5 mg BEDTIME PRN ORAL Insomnia 09/25/20 14:15 10/02/20 14:14 Allergies: Coded Allergies: No Known Allergies (Unverified , 05/07/14) ROS Limited/Unobtainable: No Constitutional: Reports: no symptoms HEENT: Reports: no symptoms Cardiovascular: Reports: no symptoms Respiratory: Reports: no symptoms Gastrointestinal/Abdominal: Reports: no symptoms Genitourinary: Reports: no symptoms Neurologic/Psychiatric: Reports: no symptoms Subjective 70 YO M admitted with left foot pain. Now left foot diabetic ulcer. Cover for Int Larry-Dr Dahl Objective Last Vital Signs Date Time Temp Pulse Resp B/P (MAP) Pulse Ox O2 Delivery O2 Flow Rate FiO2 09/25/20 17:19 79 130/77 09/25/20 16:00 97.7 20 96 09/25/20 09:00 Room Air Laboratory Tests Test 09/25/20 07:40 White Blood Count 5.4 K/UL (4.8-10.8) Red Blood Count 3.98 M/UL (4.70-6.10) L Hemoglobin 10.8 G/DL (14.2-18.0) L Hematocrit 34.2 % (42.0-52.0) L Mean Corpuscular Volume 86 FL (80-99) Mean Corpuscular Hemoglobin 27.0 PG (27.0-31.0) Mean Corpuscular Hemoglobin Concent 31.5 G/DL (32.0-36.0) L Red Cell Distribution Width 13.6 % (11.6-14.8) Platelet Count 191 K/UL (150-450) Mean Platelet Volume 7.3 FL (6.5-10.1) Neutrophils (%) (Auto) 61.2 % (45.0-75.0) Lymphocytes (%) (Auto) 26.3 % (20.0-45.0) Monocytes (%) (Auto) 8.3 % (1.0-10.0) Eosinophils (%) (Auto) 3.2 % (0.0-3.0) H Basophils (%) (Auto) 1.1 % (0.0-2.0) Sodium Level 135 MMOL/L (136-145) L Potassium Level 4.1 MMOL/L (3.5-5.1) Chloride Level 102 MMOL/L (98-107) Carbon Dioxide Level 28 MMOL/L (21-32) Anion Gap 6 mmol/L (5-15) Blood Urea Nitrogen 14 mg/dL (7-18) Creatinine 1.1 MG/DL (0.55-1.30) Estimat Glomerular Filtration Rate > 60 mL/min (>60) Glucose Level 299 MG/DL (74-106) H Calcium Level 9.2 MG/DL (8.5-10.1) Intake and Output 09/24/20 09/25/20 19:00 07:00 Intake Total 800 ml 400 ml Output Total 2000 ml Balance -1200 ml 400 ml Intake Oral 800 ml 400 ml Output Urine Total 2000 ml # Voids 1 5 Objective PHYSICAL EXAMINATION: GENERAL: Patient is awake, responsive, in no acute distress. HEAD AND NECK: Pupils are equal and reactive to light. Extraocular movements are intact. Neck was supple. No JVD. LUNGS: Good air entry. No wheezing or rales. HEART: S1, S2. Regular rhythm. No murmurs or gallops. ABDOMEN: Soft, nondistended, nontender. Positive bowel sounds. EXTREMITIES: No cyanosis, clubbing. Left foot has TMA with lateral mid foot ulcer. NEUROLOGIC: Cranial nerves II through XII grossly intact. Motor strength 5/5 in all 4 extremities. Gait is ambulatory with a front wheel walker. RECTAL: Refused and deferred. GENITOURINARY: Refused and deferred. PSYCHIATRIC: Mood and affect is intact. Assessment/Plan Assessment/Plan Assessment/Plan Assessment/Plan ASSESSMENT: 1. 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 2. Uncontrolled diabetes type 2. 3. Acute kidney injury. 4. Seizure disorder. 5. Hyperkalemia. 6. Peripheral vascular disease. 7. History of CVA with TIA. 8. Hyponatremia. 9. Hypertension. 10. Dyslipidemia. PLAN: In monitored unit. Broad-spectrum antibiotics: vancomycin and ceftriaxone. Monitor blood glucose level closely. Code status: Full Code. Nephrology = Dr. Babs Najera Infectious Disease consultation = Dr. Herminio Boss Wound consultation = Dr. Josafat Narvaez Pulmonary consultation = Dr. Choudhary Podiatry consultation = Dr. Mic Rogers. discharge planning to [facility]. Monitor laboratory. Await bone scan result Sukumar Rhodes MD Sep 25, 2020 18:42
--- NOTE | 2020-09-25 19:07 | NUR ---
NURSE HAND-OFF REPORT: Important Events on Shift:[None] Patient Status: [Full code] Diet: [CCHO Medium] Pending Orders: [] Pending Results/Labs:[] Pending MD notification:[] Latest Vital Signs: Temperature 97.7 , Pulse 79 , B/P 130 /77 , Respiratory Rate 20 , O2 SAT 96 , Room Air, O2 Flow Rate . Vital Sign Comment: [] EKG Rhythm: Sinus Rhythm Rhythm change?: N MD Notified?: - MD Response: Latest Manzanares Fall Score: 60 Fall Risk: High Risk Safety Measures: Call light Within Reach, Bed Alarm Zone 1, Side Rails Side Rails x3, Bed position Low and Locked. Fall Precautions: Yellow Socks Report given to [ELIESER Fuentes].
--- NOTE | 2020-09-25 19:30 | NUR ---
NURSE NOTES: Received report & pt from ELIESER Dorman. Pt in bed, a&ox4 with periods of confusion, in room air. No s/s of acute distress & no c/o pain at this time. Condom cath intact & draining yellow urine output to gravity. IV site intact & S/L'd. Bed in lowest position. Call light within reach. Plan of care discussed. Will continue to monitor.
[2020-09-25 20:00] VITALS: BP 138/70
[2020-09-25] MEDS: Atorvastatin 20mg tab ORAL SCH (21:00)
[2020-09-25] MEDS: Miralax 17gm pkt ORAL SCH (21:00)
--- NOTE | 2020-09-25 21:00 | NUR ---
NURSE NOTES: New IV site inserted RFA#22, patent & flushing well. Old IV site is already out when RN came in.
[2020-09-26] VITALS: BP 143/86
--- NOTE | 2020-09-26 | NUR ---
NURSE NOTES: Pt asleep. In no acute distress. Breathing unlabored.
--- NOTE | 2020-09-26 03:56 | NUR ---
NURSE NOTES: Pt awake. Changed condom cath since the old one is out. Pt in no acute distress. Will continue to monitor for changes.
[2020-09-26 04:00] VITALS: BP 144/76
[2020-09-26] MEDS: Vancomycin 750mg/NS 275ml IVPB SCH ×4 (04:24→17:44)
[2020-09-26] MEDS: NovoLOG Insulin Flexpen SUBQ SCH ×4 (05:46→20:25)
--- NOTE | 2020-09-26 06:20 | NUR ---
NURSE HAND-OFF REPORT: Important Events on Shift:new iv RFA#22 Patient Status: stable Diet: ccho (m) Pending Orders: none Pending Results/Labs:bone scan result pending Pending MD notification:none Latest Vital Signs: Temperature 98.6 , Pulse 86 , B/P 144 /76 , Respiratory Rate 20 , O2 SAT 96 , Room Air, O2 Flow Rate . Vital Sign Comment: none EKG Rhythm: Sinus Rhythm Rhythm change?: N MD Notified?: - N MD Response: Latest Manzanares Fall Score: 60 Fall Risk: High Risk Safety Measures: Call light Within Reach, Bed Alarm Zone 1, Side Rails Side Rails x3, Bed position Low and Locked. Fall Precautions: Yellow Socks Report given to Lakia Parekh RN. Addendum: 09/26/20 at 0625 by Gina Nash RN Pt is afebrile throughout mini shifter
--- NOTE | 2020-09-26 07:28 | NUR ---
NURSE NOTES: Received patient report from ELIESER Fuentes. Patient is AO x3 awake and able to make needs known. Patient is on room air and shows no signs of respiratory distress at the time. IV is patent and flushed. There are no signs of erythema, infiltration, or bleeding. Bed is in the lowest position, call light is within reach, side rails up x3. Will continue plan of care.
[2020-09-26 07:50] LABS: BASOPHILS % (AUTO) 0.5 % (0.0-2.0); EOSINOPHILS % (AUTO) 1.6 % (0.0-3.0); HEMATOCRIT 34.9 % (42.0-52.0); HEMOGLOBIN 11.1 G/DL (14.2-18.0); LYMPHOCYTES % (AUTO) 15.4 % (20.0-45.0); MEAN CORPUSCULAR VOLUME 86 FL (80-99); MONOCYTES % (AUTO) 5.6 % (1.0-10.0); NEUTROPHILS % (AUTO) 76.8 % (45.0-75.0); PLATELET COUNT 214 K/UL (150-450); RED BLOOD COUNT 4.06 M/UL (4.70-6.10); RED CELL DISTRIBUTION WIDTH 13.8 % (11.6-14.8); WHITE BLOOD COUNT 9.5 K/UL (4.8-10.8)
[2020-09-26 08:00] VITALS: BP 134/78
[2020-09-26 08:00] LABS: ANION GAP 7 mmol/L (5-15); BLOOD UREA NITROGEN 15 mg/dL (7-18); CARBON DIOXIDE 28 MMOL/L (21-32); CHLORIDE 101 MMOL/L (98-107); CREATININE 1.2 MG/DL (0.55-1.30); POTASSIUM 4.1 MMOL/L (3.5-5.1); SODIUM 136 MMOL/L (136-145)
[2020-09-26] MEDS: Phenytoin 100mg cap ORAL SCH ×2 (08:56→20:22)
[2020-09-26] MEDS: Carvedilol 6.25mg Tab ORAL SCH ×2 (08:56→17:44)
[2020-09-26] MEDS: Aspirin EC 81mg tab ORAL SCH (08:56)
[2020-09-26] MEDS: Docusate 100mg cap ORAL SCH ×2 (08:56→17:44)
[2020-09-26] MEDS: Imdur 30mg tab ORAL SCH (08:56)
--- NOTE | 2020-09-26 10:09 | Pulmonology Progress Note ---
Subjective ROS Limited/Unobtainable: No Interval Events: None major reported per nursing Constitutional: Reports: no symptoms, other - feels better HEENT: Repors: no symptoms Respiratory: Reports: no symptoms Cardiovascular: Reports: no symptoms Gastrointestinal/Abdominal: Reports: no symptoms Musculoskeletal: Reports: pain, other - decreased Allergies: Coded Allergies: No Known Allergies (Unverified , 05/07/14) Objective Last 24 Hour Vital Signs Date Time Temp Pulse Resp B/P (MAP) Pulse Ox O2 Delivery O2 Flow Rate FiO2 09/26/20 09:00 Room Air 09/26/20 08:56 134/78 09/26/20 08:56 89 134/78 09/26/20 08:00 81 09/26/20 08:00 99.0 89 20 134/78 (96) 94 09/26/20 04:00 98.6 91 20 144/76 (98) 96 09/26/20 04:00 86 09/26/20 00:00 85 09/26/20 00:00 98.2 88 18 143/86 (105) 96 09/25/20 21:00 Room Air 09/25/20 20:00 98.5 80 18 138/70 (92) 96 09/25/20 20:00 80 09/25/20 17:19 79 130/77 09/25/20 16:00 97.7 78 20 130/77 (94) 96 09/25/20 16:00 79 09/25/20 12:00 83 09/25/20 12:00 97.9 84 20 159/78 (105) 99 Intake and Output 09/25/20 09/26/20 19:00 07:00 Intake Total 360 ml Output Total 1700 ml 600 ml Balance -1700 ml -240 ml Intake Oral 360 ml Output Urine Total 1700 ml Other 600 ml # Voids 2 # Bowel Movements 1 General Appearance: no acute distress HEENT: atraumatic Respiratory: lungs clear Cardiovascular: normal rate Abdomen: soft, non tender Extremities: other - left foot toes amputated Skin: ulcers - lateral aspect of L foot Laboratory Tests 09/26/20 06:35: White Blood Count 9.5#, Red Blood Count 4.06L, Hemoglobin 11.1L, Hematocrit 34.9L, Mean Corpuscular Volume 86, Mean Corpuscular Hemoglobin 27.4, Mean Corpuscular Hemoglobin Concent 31.8L, Red Cell Distribution Width 13.8, Platelet Count 214, Mean Platelet Volume 7.2, Neutrophils (%) (Auto) 76.8H, Lymphocytes (%) (Auto) 15.4L, Monocytes (%) (Auto) 5.6, Eosinophils (%) (Auto) 1.6, Basophils (%) (Auto) 0.5, Sodium Level 136, Potassium Level 4.1, Chloride Level 101, Carbon Dioxide Level 28, Anion Gap 7, Blood Urea Nitrogen 15, Creatinine 1.2, Estimat Glomerular Filtration Rate > 60, Glucose Level 205H, Calcium Level 9.0 Current Medications Medications (Trade) Dose Ordered Sig/Mell Route PRN Reason Start Time Stop Time Status Last Admin Dose Admin Acetaminophen (Tylenol) 650 mg Q6H PRN ORAL Temp >100.5 09/25/20 12:00 10/25/20 11:59 Acetaminophen/ Hydrocodone Bitart ([place] 5/325) 1 tab Q6H PRN ORAL Mild Pain (Pain Scale 1-3) 09/25/20 14:15 10/02/20 14:14 Aspirin (Ecotrin) 81 mg DAILY ORAL 09/19/20 09:00 11/03/20 08:59 09/26/20 08:56 Atorvastatin Calcium (Lipitor) 20 mg BEDTIME ORAL 09/19/20 21:00 12/18/20 20:59 09/25/20 21:00 Carvedilol (Coreg) 6.25 mg BID ORAL 09/19/20 09:00 10/19/20 08:59 09/26/20 08:56 Ceftriaxone Sodium 2 gm/ Dextrose 55 ml @ 110 mls/hr Q24H IVPB 09/19/20 13:00 10/02/20 23:59 09/25/20 13:54 Clonidine HCl (Catapres Tab) 0.1 mg Q4H PRN ORAL SBP>160MMHG 09/19/20 01:45 12/18/20 01:44 09/21/20 05:11 Clopidogrel Bisulfate (Plavix) 75 mg DAILY ORAL 09/19/20 09:00 10/19/20 08:59 09/26/20 08:56 Dextrose (Dextrose 50%) 25 ml Q30M PRN IV Hypoglycemia 09/19/20 01:30 12/18/20 01:29 Dextrose (Dextrose 50%) 50 ml Q30M PRN IV Hypoglycemia 09/19/20 01:30 12/18/20 01:29 Docusate Sodium (Colace) 100 mg TWICE A DAY ORAL 09/21/20 18:00 10/21/20 17:59 09/26/20 08:56 Gabapentin (Neurontin) 600 mg BID ORAL 09/19/20 09:00 10/19/20 08:59 09/26/20 08:56 Hydromorphone HCl (Dilaudid) 1 mg Q6H PRN IVP Moderate Pain (Pain Scale 4-6) 09/25/20 14:45 09/27/20 01:29 Insulin Aspart (NovoLOG) BEFORE MEALS AND HS SUBQ 09/19/20 06:30 12/18/20 06:29 09/26/20 05:46 Insulin Detemir (Levemir) 15 units Q24H SUBQ 09/25/20 15:00 12/24/20 14:59 09/25/20 16:21 Isosorbide Mononitrate (Imdur) 30 mg DAILY ORAL 09/19/20 09:00 10/19/20 08:59 09/26/20 08:56 Ondansetron HCl (Zofran) 4 mg Q4H PRN IVP Nausea & Vomiting 09/19/20 01:30 10/19/20 01:29 Pantoprazole (Protonix) 40 mg DAILY ORAL 09/19/20 09:00 10/19/20 08:59 09/26/20 08:56 Phenytoin (Dilantin) 200 mg Q12HR ORAL 09/19/20 21:00 11/03/20 08:59 09/26/20 08:56 Polyethylene Glycol (Miralax) 17 gm BEDTIME ORAL 09/21/20 21:00 10/21/20 20:59 09/25/20 21:00 Terazosin HCl (Hytrin) 5 mg BEDTIME ORAL 09/19/20 21:00 10/19/20 20:59 09/25/20 21:00 Vancomycin HCl (Vanco pharmacy to dose) 1 ea DAILY PRN MISC Per rx protocol 09/19/20 01:30 10/19/20 01:29 Vancomycin HCl 750 mg/Sodium Chloride 275 ml @ 183.333 mls/hr Q12H IVPB 09/21/20 05:00 09/30/20 23:59 09/26/20 04:24 Zolpidem Tartrate (Ambien) 5 mg BEDTIME PRN ORAL Insomnia 09/25/20 14:15 10/02/20 14:14 09/25/20 22:34 Assessment/Plan Assessment/Plan 1. Diabetic foot ulcer - on Abx - MRI of the L foot (09/20) suspicious for osteomyelitis -> f/u bone scan (09/25) awaiting result -Wound care following 2. Uncontrolled diabetes mellitus with hyperglycemia -BG control -A1c 12.2 3. Hyperkalemia - resolved 4. Acute renal failure - per primary MD 5 .History of seizure -Continue Dilantin 6. Risk of aspiration pneumonia given history of seizure -Monitor for seizure -Monitor for fever 7. ex-smoker 8. Lung infiltrates, ? pneumonia - COVID-19 negative (09/20) - on Abx The care for this patient was discussed with my supervising physician. Time spent for this case was approximately 31 minutes. Asher Parikh Sep 26, 2020 10:09
--- NOTE | 2020-09-26 10:32 | NUR ---
RD ASSESSMENT & RECOMMENDATIONS SEE CARE ACTIVITY FOR COMPLETE ASSESSMENT DAILY ESTIMATED NEEDS: Needs based on dm, wound, underweight / 67.7kg 30-35 kcals/kg 9099-5455 total kcals 1.25-1.5 g protein/kg 85-102 g total protein 25-35ml/kcal mL/kg 6891-6516 total fluid mLs NUTRITION DIAGNOSIS: Altered nutrition related lab values r/t diabetes as evidenced by elev elev BG and POC glu ([phone]), high A1C 12.2, uglu 4+ on adm. CURRENT DIET: CCHO MED PO DIET RECOMMENDATIONS: CCHO MED + DOUBLE PROTEIN PORTIONS ADDITIONAL RECOMMENDATIONS: * Obtain a CALIBRATED bed scale wt for accurate CBW * Monitor BGs, consider long acting insulin for improved BG control -> now on Levmeir 15 units qdaily, monitor need to increase further * [employer] eval for appropriate texture- h/o CVA, poor dentition * Wound care: MVI x1, Vit C 250mg QD + BRANDI BID . .
--- NOTE | 2020-09-26 11:06 | Nephrology Progress Note ---
Assessment/Plan Plan #left foot osteo #r/o sepsis #hyponatremia #hyperkalemia #JASMIN #DM #HTN #HLD IMPRESSION: ABNORMAL UPTAKE NOTED IN THE MEDIAL ASPECT OF THE LEFT MIDFOOT APPROXIMATELY AT THE LEVEL OF THE FIRST CUNEIFORM OR BASE OF THE FIRST METATARSAL. NO SIGNIFICANT HYPEREMIA ON INITIAL FLOW IMAGES AND THERE IS MINIMAL ASYMMETRY ON THE BLOOD POOL IMAGES. APPEARANCE IS NONSPECIFIC FOR INFECTIOUS/INFLAMMATORY DISEASE VERSUS OTHER CAUSES INCLUDING POSTTRAUMATIC OR DEGENERATIVE CHANGES. Recommend correlation with repeat left foot x-ray. - DC IVF - BG control - IV antibiotics - pain control - ID eval - podiatry eval - surgery eval - resume home meds - monitor BG - hold metformin - foot MRI noted -time spent 65 min Subjective Subjective IMPRESSION: ABNORMAL UPTAKE NOTED IN THE MEDIAL ASPECT OF THE LEFT MIDFOOT APPROXIMATELY AT THE LEVEL OF THE FIRST CUNEIFORM OR BASE OF THE FIRST METATARSAL. NO SIGNIFICANT HYPEREMIA ON INITIAL FLOW IMAGES AND THERE IS MINIMAL ASYMMETRY ON THE BLOOD POOL IMAGES. APPEARANCE IS NONSPECIFIC FOR INFECTIOUS/INFLAMMATORY DISEASE VERSUS OTHER CAUSES INCLUDING POSTTRAUMATIC OR DEGENERATIVE CHANGES. Recommend correlation with repeat left foot x-ray. Impression: Extremely limited borderline nondiagnostic exam for reasons described above Evidence of prior transmetatarsal amputation, also previously described Equivocal focal high STIR signal within the fifth metatarsal stump, could re present a small focus of osteomyelitis but it is not corroborated on the T2-weighted images. This is also demonstrated on the previous exam. If there is high clinical suspicion, bone scan may be useful to better characterize Extensive soft tissue edema. 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 Objective Objective Last 24 Hour Vital Signs Date Time Temp Pulse Resp B/P (MAP) Pulse Ox O2 Delivery O2 Flow Rate FiO2 09/26/20 09:00 Room Air 09/26/20 08:56 134/78 09/26/20 08:56 89 134/78 09/26/20 08:00 81 09/26/20 08:00 99.0 89 20 134/78 (96) 94 09/26/20 04:00 98.6 91 20 144/76 (98) 96 09/26/20 04:00 86 09/26/20 00:00 85 09/26/20 00:00 98.2 88 18 143/86 (105) 96 09/25/20 21:00 Room Air 09/25/20 20:00 98.5 80 18 138/70 (92) 96 09/25/20 20:00 80 09/25/20 17:19 79 130/77 09/25/20 16:00 97.7 78 20 130/77 (94) 96 09/25/20 16:00 79 09/25/20 12:00 83 09/25/20 12:00 97.9 84 20 159/78 (105) 99 Intake and Output 09/25/20 09/26/20 19:00 07:00 Intake Total 360 ml Output Total 1700 ml 600 ml Balance -1700 ml -240 ml Intake Oral 360 ml Output Urine Total 1700 ml Other 600 ml # Voids 2 # Bowel Movements 1 Laboratory Tests 09/26/20 06:35: White Blood Count 9.5#, Red Blood Count 4.06L, Hemoglobin 11.1L, Hematocrit 34 .9L, Mean Corpuscular Volume 86, Mean Corpuscular Hemoglobin 27.4, Mean Corpuscular Hemoglobin Concent 31.8L, Red Cell Distribution Width 13.8, Platelet Count 214, Mean Platelet Volume 7.2, Neutrophils (%) (Auto) 76.8H, Lymphocytes (%) (Auto) 15.4L, Monocytes (%) (Auto) 5.6, Eosinophils (%) (Auto) 1.6, Basophi ls (%) (Auto) 0.5, Sodium Level 136, Potassium Level 4.1, Chloride Level 101, Carbon Dioxide Level 28, Anion Gap 7, Blood Urea Nitrogen 15, Creatinine 1.2, Estimat Glomerular Filtration Rate > 60, Glucose Level 205H, Calcium Level 9.0 Height (Feet): 6 Height (Inches): 0.00 Weight (Pounds): 150 Objective General: Patient is laying in bed with normal work of breathing on room air HEENT: Head exam reveals that the head is normocephalic, atraumatic without deformity or unusual swelling. Pupils are PERRLA. CHEST AND LUNGS: Reveals clear, normal, symmetrical breath sounds with no adventitious sounds. CARDIOVASCULAR: Reveals normal S1, S2 without murmurs, rubs, or clicks. ABDOMEN: Soft with no tenderness or organomegaly. RECTAL: Deferred. MUSCULOSKELETAL: There is no tenderness to palpation. Range of motion is normal. SKIN: All left foot toes amputated. Small chronic wound on the lateral aspect of left foot without erythema or induration. NEUROLOGICAL: Alert and oriented x3 , nonfocal Babs Najera M.D. Sep 26, 2020 11:06
--- NOTE | 2020-09-26 11:19 | General Progress Note ---
Subjective Constitutional: Reports: fever, malaise HEENT: Reports: no symptoms Cardiovascular: Reports: no symptoms Respiratory: Reports: no symptoms Gastrointestinal/Abdominal: Reports: abdomen distended Genitourinary: Reports: no symptoms Neurologic/Psychiatric: Reports: anxiety Allergies: Coded Allergies: No Known Allergies (Unverified , 05/07/14) Subjective pt is bed bound confused pain is controlled Objective Last 24 Hour Vital Signs Date Time Temp Pulse Resp B/P (MAP) Pulse Ox O2 Delivery O2 Flow Rate FiO2 09/26/20 09:00 Room Air 09/26/20 08:56 134/78 09/26/20 08:56 89 134/78 09/26/20 08:00 81 09/26/20 08:00 99.0 89 20 134/78 (96) 94 09/26/20 04:00 98.6 91 20 144/76 (98) 96 09/26/20 04:00 86 09/26/20 00:00 85 09/26/20 00:00 98.2 88 18 143/86 (105) 96 09/25/20 21:00 Room Air 09/25/20 20:00 98.5 80 18 138/70 (92) 96 09/25/20 20:00 80 09/25/20 17:19 79 130/77 09/25/20 16:00 97.7 78 20 130/77 (94) 96 09/25/20 16:00 79 09/25/20 12:00 83 09/25/20 12:00 97.9 84 20 159/78 (105) 99 Intake and Output 09/25/20 09/26/20 19:00 07:00 Intake Total 360 ml Output Total 1700 ml 600 ml Balance -1700 ml -240 ml Intake Oral 360 ml Output Urine Total 1700 ml Other 600 ml # Voids 2 # Bowel Movements 1 Laboratory Tests 09/26/20 06:35: White Blood Count 9.5#, Red Blood Count 4.06L, Hemoglobin 11.1L, Hematocrit 34.9L, Mean Corpuscular Volume 86, Mean Corpuscular Hemoglobin 27.4, Mean Corpuscular Hemoglobin Concent 31.8L, Red Cell Distribution Width 13.8, Platelet Count 214, Mean Platelet Volume 7.2, Neutrophils (%) (Auto) 76.8H, Lymphocytes (%) (Auto) 15.4L, Monocytes (%) (Auto) 5.6, Eosinophils (%) (Auto) 1.6, Basophils (%) (Auto) 0.5, Sodium Level 136, Potassium Level 4.1, Chloride Level 101, Carbon Dioxide Level 28, Anion Gap 7, Blood Urea Nitrogen 15, Creatinine 1.2, Estimat Glomerular Filtration Rate > 60, Glucose Level 205H, Calcium Level 9.0 Height (Feet): 6 Height (Inches): 0.00 Weight (Pounds): 150 General Appearance: alert EENT: PERRL/EOMI Neck: supple Cardiovascular: normal rate Respiratory/Chest: crackles/rales Abdomen: non tender, soft Extremities: calf tenderness - foot ulcer Assessment/Plan Assessment/Plan: pna cellulitis/foot ulcer copd htn dm dementia chronic pain arf better cont abx ss accue check dw dtr and Noble Cao MD Sep 26, 2020 11:18
--- NOTE | 2020-09-26 11:40 | NUR ---
QUALITY REP NOTES SPOKE WITH PT'S DAUGHTER ES, MADE AWARE OF DCP TO SNF SHORT TERM FOR IV ATB AND PHYSICAL THERAPY. ES AND PT IN AGREEMENT WITH DCP AT THIS TIME. PER ES SHE WOULD BE THE POINT OF CONTACT FOR DECISIONS OF CARE TO BE MADE ON HER FATHER. PT VERIFIED ES TO BE INVOLVED WITH THE DECISION MAKING FOR HIS HEALTHCARE. INQUIRY FAXED TO [facility].
[2020-09-26 12:00] VITALS: BP 157/75
[2020-09-26] MEDS: cefTRIAXone 2 GM in D5W 55 ML IVPB SCH (12:20)
--- NOTE | 2020-09-26 13:03 | NUR ---
PT NOTES; Pt in bed asleep. Rouses touch & name. Appears out of sorts & pleasantly confused. Declines therapy. "Not till we get there." Attempted to re-orient pt to no avail. Still declining interventions. Will check back if schedule permits.
--- NOTE | 2020-09-26 13:50 | Infectious Diseases Prog Note ---
Assessment/Plan Assessment/Plan IMPRESSION: 1. Diabetic foot ulcer, cellulitis, ?osteomyelitis. 2. Diabetes mellitus with hyperglycemia. 3. Hyperkalemia. 4. Acute renal failure. 5. Peripheral vascular disease. 6. Lung infiltrates, ? pneumonia RECOMMENDATION: Continue IV vancomycin & ceftriaxone. Inconclusive MRI of the foot because of motion artifact Waiting for Bone scan report Josesiobhan D/W RN Rapid COVID19 test: negative Subjective ROS Limited/Unobtainable: Yes Allergies: Coded Allergies: No Known Allergies (Unverified , 05/07/14) Objective Last 24 Hour Vital Signs Date Time Temp Pulse Resp B/P (MAP) Pulse Ox O2 Delivery O2 Flow Rate FiO2 09/26/20 12:00 97.9 88 20 157/75 (102) 96 09/26/20 12:00 86 09/26/20 09:00 Room Air 09/26/20 08:56 134/78 09/26/20 08:56 89 134/78 09/26/20 08:00 81 09/26/20 08:00 99.0 89 20 134/78 (96) 94 09/26/20 04:00 98.6 91 20 144/76 (98) 96 09/26/20 04:00 86 09/26/20 00:00 85 09/26/20 00:00 98.2 88 18 143/86 (105) 96 09/25/20 21:00 Room Air 09/25/20 20:00 98.5 80 18 138/70 (92) 96 09/25/20 20:00 80 09/25/20 17:19 79 130/77 09/25/20 16:00 97.7 78 20 130/77 (94) 96 09/25/20 16:00 79 Height (Feet): 6 Height (Inches): 0.00 Weight (Pounds): 150 HEENT: mucous membranes moist Respiratory/Chest: lungs clear Cardiovascular: normal rate Abdomen: soft, non tender Extremities: no edema Neurologic/Psychiatric: other - sleeping Laboratory Tests Test 09/26/20 06:35 White Blood Count 9.5 K/UL (4.8-10.8) # Red Blood Count 4.06 M/UL (4.70-6.10) L Hemoglobin 11.1 G/DL (14.2-18.0) L Hematocrit 34.9 % (42.0-52.0) L Mean Corpuscular Volume 86 FL (80-99) Mean Corpuscular Hemoglobin 27.4 PG (27.0-31.0) Mean Corpuscular Hemoglobin Concent 31.8 G/DL (32.0-36.0) L Red Cell Distribution Width 13.8 % (11.6-14.8) Platelet Count 214 K/UL (150-450) Mean Platelet Volume 7.2 FL (6.5-10.1) Neutrophils (%) (Auto) 76.8 % (45.0-75.0) H Lymphocytes (%) (Auto) 15.4 % (20.0-45.0) L Monocytes (%) (Auto) 5.6 % (1.0-10.0) Eosinophils (%) (Auto) 1.6 % (0.0-3.0) Basophils (%) (Auto) 0.5 % (0.0-2.0) Sodium Level 136 MMOL/L (136-145) Potassium Level 4.1 MMOL/L (3.5-5.1) Chloride Level 101 MMOL/L (98-107) Carbon Dioxide Level 28 MMOL/L (21-32) Anion Gap 7 mmol/L (5-15) Blood Urea Nitrogen 15 mg/dL (7-18) Creatinine 1.2 MG/DL (0.55-1.30) Estimat Glomerular Filtration Rate > 60 mL/min (>60) Glucose Level 205 MG/DL (74-106) H Calcium Level 9.0 MG/DL (8.5-10.1) Current Medications Medications (Trade) Dose Ordered Sig/Mell Route PRN Reason Start Time Stop Time Status Last Admin Dose Admin Acetaminophen (Tylenol) 650 mg Q6H PRN ORAL Temp >100.5 09/25/20 12:00 10/25/20 11:59 Acetaminophen/ Hydrocodone Bitart (Desha 5/325) 1 tab Q6H PRN ORAL Mild Pain (Pain Scale 1-3) 09/25/20 14:15 10/02/20 14:14 Aspirin (Ecotrin) 81 mg DAILY ORAL 09/19/20 09:00 11/03/20 08:59 09/26/20 08:56 Atorvastatin Calcium (Lipitor) 20 mg BEDTIME ORAL 09/19/20 21:00 12/18/20 20:59 09/25/20 21:00 Carvedilol (Coreg) 6.25 mg BID ORAL 09/19/20 09:00 10/19/20 08:59 09/26/20 08:56 Ceftriaxone Sodium 2 gm/ Dextrose 55 ml @ 110 mls/hr Q24H IVPB 09/19/20 13:00 10/02/20 23:59 09/26/20 12:20 Clonidine HCl (Catapres Tab) 0.1 mg Q4H PRN ORAL SBP>160MMHG 09/19/20 01:45 12/18/20 01:44 09/21/20 05:11 Clopidogrel Bisulfate (Plavix) 75 mg DAILY ORAL 09/19/20 09:00 10/19/20 08:59 09/26/20 08:56 Dextrose (Dextrose 50%) 25 ml Q30M PRN IV Hypoglycemia 09/19/20 01:30 12/18/20 01:29 Dextrose (Dextrose 50%) 50 ml Q30M PRN IV Hypoglycemia 09/19/20 01:30 12/18/20 01:29 Docusate Sodium (Colace) 100 mg TWICE A DAY ORAL 09/21/20 18:00 10/21/20 17:59 09/26/20 08:56 Gabapentin (Neurontin) 600 mg BID ORAL 09/19/20 09:00 10/19/20 08:59 09/26/20 08:56 Hydromorphone HCl (Dilaudid) 1 mg Q6H PRN IVP Moderate Pain (Pain Scale 4-6) 09/25/20 14:45 09/27/20 01:29 Insulin Aspart (NovoLOG) BEFORE MEALS AND HS SUBQ 09/19/20 06:30 12/18/20 06:29 09/26/20 12:21 Insulin Detemir (Levemir) 15 units Q24H SUBQ 09/25/20 15:00 12/24/20 14:59 09/25/20 16:21 Isosorbide Mononitrate (Imdur) 30 mg DAILY ORAL 09/19/20 09:00 10/19/20 08:59 09/26/20 08:56 Ondansetron HCl (Zofran) 4 mg Q4H PRN IVP Nausea & Vomiting 09/19/20 01:30 10/19/20 01:29 Pantoprazole (Protonix) 40 mg DAILY ORAL 09/19/20 09:00 10/19/20 08:59 09/26/20 08:56 Phenytoin (Dilantin) 200 mg Q12HR ORAL 09/19/20 21:00 11/03/20 08:59 09/26/20 08:56 Polyethylene Glycol (Miralax) 17 gm BEDTIME ORAL 09/21/20 21:00 10/21/20 20:59 09/25/20 21:00 Terazosin HCl (Hytrin) 5 mg BEDTIME ORAL 09/19/20 21:00 10/19/20 20:59 09/25/20 21:00 Vancomycin HCl (Vanco pharmacy to dose) 1 ea DAILY PRN MISC Per rx protocol 09/19/20 01:30 10/19/20 01:29 Vancomycin HCl 750 mg/Sodium Chloride 275 ml @ 183.333 mls/hr Q12H IVPB 09/21/20 05:00 09/30/20 23:59 09/26/20 04:24 Zolpidem Tartrate (Ambien) 5 mg BEDTIME PRN ORAL Insomnia 09/25/20 14:15 10/02/20 14:14 09/25/20 22:34 Herminio Boss MD Sep 26, 2020 13:50
--- NOTE | 2020-09-26 14:03 | Diagnostic Imaging Report ---
EXAM: NM Bone Scan 3-Phase CLINICAL HISTORY: Status post transmetatarsal amputation. Foot pain. Infection. COMPARISON: MRI of the left foot 09/20/2020. X-ray left foot 09/18/2020 30 TECHNIQUE: Whole body bone scan performed using 25 mCi of technetium 99 MDP. SPECT and planar images are obtained in multiple projections. FINDINGS: In the initial dynamic flow images, there is no hyperemia or asymmetry noted between the feet. On the subsequent blood pool images, there is slight asymmetric uptake noted in the region of the left midfoot. On the delayed images, there is a focus of increased uptake identified in the medial left midfoot that this is approximately in the region of the first metatarsal base or the first cuneiform. Unfortunately bony details of this area is extremely limited on prior MRI. No gross bony abnormality noted on earlier plain film of the left foot 09/18/2020. IMPRESSION: ABNORMAL UPTAKE NOTED IN THE MEDIAL ASPECT OF THE LEFT MIDFOOT APPROXIMATELY AT THE LEVEL OF THE FIRST CUNEIFORM OR BASE OF THE FIRST METATARSAL. NO SIGNIFICANT HYPEREMIA ON INITIAL FLOW IMAGES AND THERE IS MINIMAL ASYMMETRY ON THE BLOOD POOL IMAGES. APPEARANCE IS NONSPECIFIC FOR INFECTIOUS/INFLAMMATORY DISEASE VERSUS OTHER CAUSES INCLUDING POSTTRAUMATIC OR DEGENERATIVE CHANGES. Recommend correlation with repeat left foot x-ray.
[2020-09-26 16:00] VITALS: BP 125/67
[2020-09-26] MEDS: Levemir Flexpen SUBQ SCH (16:07)
--- NOTE | 2020-09-26 16:22 | NUR ---
INSURANCE CLINICALS FAXED TO [facility]#[phone] fax# [phone]
--- NOTE | 2020-09-26 17:39 | Internal Med Progress Note ---
Subjective Date of Service: Sep 26, 2020 Physician Name Sukumar Rhodes Attending Physician Noble Penn MD Current Medications Medications (Trade) Dose Ordered Sig/Mell Route PRN Reason Start Time Stop Time Status Last Admin Dose Admin Acetaminophen (Tylenol) 650 mg Q6H PRN ORAL Temp >100.5 09/25/20 12:00 10/25/20 11:59 Acetaminophen/ Hydrocodone Bitart ([place] 5/325) 1 tab Q6H PRN ORAL Mild Pain (Pain Scale 1-3) 09/25/20 14:15 10/02/20 14:14 Aspirin (Ecotrin) 81 mg DAILY ORAL 09/19/20 09:00 11/03/20 08:59 09/26/20 08:56 Atorvastatin Calcium (Lipitor) 20 mg BEDTIME ORAL 09/19/20 21:00 12/18/20 20:59 09/25/20 21:00 Carvedilol (Coreg) 6.25 mg BID ORAL 09/19/20 09:00 10/19/20 08:59 09/26/20 08:56 Ceftriaxone Sodium 2 gm/ Dextrose 55 ml @ 110 mls/hr Q24H IVPB 09/19/20 13:00 10/02/20 23:59 09/26/20 12:20 Clonidine HCl (Catapres Tab) 0.1 mg Q4H PRN ORAL SBP>160MMHG 09/19/20 01:45 12/18/20 01:44 09/21/20 05:11 Clopidogrel Bisulfate (Plavix) 75 mg DAILY ORAL 09/19/20 09:00 10/19/20 08:59 09/26/20 08:56 Dextrose (Dextrose 50%) 25 ml Q30M PRN IV Hypoglycemia 09/19/20 01:30 12/18/20 01:29 Dextrose (Dextrose 50%) 50 ml Q30M PRN IV Hypoglycemia 09/19/20 01:30 12/18/20 01:29 Docusate Sodium (Colace) 100 mg TWICE A DAY ORAL 09/21/20 18:00 10/21/20 17:59 09/26/20 08:56 Gabapentin (Neurontin) 600 mg BID ORAL 09/19/20 09:00 10/19/20 08:59 09/26/20 08:56 Hydromorphone HCl (Dilaudid) 1 mg Q6H PRN IVP Moderate Pain (Pain Scale 4-6) 09/25/20 14:45 09/27/20 01:29 Insulin Aspart (NovoLOG) BEFORE MEALS AND HS SUBQ 09/19/20 06:30 12/18/20 06:29 09/26/20 16:08 Insulin Detemir (Levemir) 15 units Q24H SUBQ 09/25/20 15:00 12/24/20 14:59 09/26/20 16:07 Isosorbide Mononitrate (Imdur) 30 mg DAILY ORAL 09/19/20 09:00 10/19/20 08:59 09/26/20 08:56 Ondansetron HCl (Zofran) 4 mg Q4H PRN IVP Nausea & Vomiting 09/19/20 01:30 10/19/20 01:29 Pantoprazole (Protonix) 40 mg DAILY ORAL 09/19/20 09:00 10/19/20 08:59 09/26/20 08:56 Phenytoin (Dilantin) 200 mg Q12HR ORAL 09/19/20 21:00 11/03/20 08:59 09/26/20 08:56 Polyethylene Glycol (Miralax) 17 gm BEDTIME ORAL 09/21/20 21:00 10/21/20 20:59 09/25/20 21:00 Terazosin HCl (Hytrin) 5 mg BEDTIME ORAL 09/19/20 21:00 10/19/20 20:59 09/25/20 21:00 Vancomycin HCl (Vanco pharmacy to dose) 1 ea DAILY PRN MISC Per rx protocol 09/19/20 01:30 10/19/20 01:29 Vancomycin HCl 750 mg/Sodium Chloride 275 ml @ 183.333 mls/hr Q12H IVPB 09/21/20 05:00 09/30/20 23:59 09/26/20 04:24 Zolpidem Tartrate (Ambien) 5 mg BEDTIME PRN ORAL Insomnia 09/25/20 14:15 10/02/20 14:14 09/25/20 22:34 Allergies: Coded Allergies: No Known Allergies (Unverified , 05/07/14) ROS Limited/Unobtainable: No Constitutional: Reports: no symptoms HEENT: Reports: no symptoms Cardiovascular: Reports: no symptoms Respiratory: Reports: no symptoms Gastrointestinal/Abdominal: Reports: no symptoms Genitourinary: Reports: no symptoms Neurologic/Psychiatric: Reports: no symptoms Subjective 70 YO M admitted with left foot pain. Now left foot diabetic ulcer. Cover for Int Larry-Dr Dahl Objective Last Vital Signs Date Time Temp Pulse Resp B/P (MAP) Pulse Ox O2 Delivery O2 Flow Rate FiO2 09/26/20 16:00 81 09/26/20 16:00 97.2 20 125/67 (86) 95 09/26/20 09:00 Room Air Laboratory Tests Test 09/26/20 06:35 White Blood Count 9.5 K/UL (4.8-10.8) # Red Blood Count 4.06 M/UL (4.70-6.10) L Hemoglobin 11.1 G/DL (14.2-18.0) L Hematocrit 34.9 % (42.0-52.0) L Mean Corpuscular Volume 86 FL (80-99) Mean Corpuscular Hemoglobin 27.4 PG (27.0-31.0) Mean Corpuscular Hemoglobin Concent 31.8 G/DL (32.0-36.0) L Red Cell Distribution Width 13.8 % (11.6-14.8) Platelet Count 214 K/UL (150-450) Mean Platelet Volume 7.2 FL (6.5-10.1) Neutrophils (%) (Auto) 76.8 % (45.0-75.0) H Lymphocytes (%) (Auto) 15.4 % (20.0-45.0) L Monocytes (%) (Auto) 5.6 % (1.0-10.0) Eosinophils (%) (Auto) 1.6 % (0.0-3.0) Basophils (%) (Auto) 0.5 % (0.0-2.0) Sodium Level 136 MMOL/L (136-145) Potassium Level 4.1 MMOL/L (3.5-5.1) Chloride Level 101 MMOL/L (98-107) Carbon Dioxide Level 28 MMOL/L (21-32) Anion Gap 7 mmol/L (5-15) Blood Urea Nitrogen 15 mg/dL (7-18) Creatinine 1.2 MG/DL (0.55-1.30) Estimat Glomerular Filtration Rate > 60 mL/min (>60) Glucose Level 205 MG/DL (74-106) H Calcium Level 9.0 MG/DL (8.5-10.1) Intake and Output 09/25/20 09/26/20 19:00 07:00 Intake Total 360 ml Output Total 1700 ml 600 ml Balance -1700 ml -240 ml Intake Oral 360 ml Output Urine Total 1700 ml Other 600 ml # Voids 2 # Bowel Movements 1 Objective PHYSICAL EXAMINATION: GENERAL: Patient is awake, responsive, in no acute distress. HEAD AND NECK: Pupils are equal and reactive to light. Extraocular movements are intact. Neck was supple. No JVD. LUNGS: Good air entry. No wheezing or rales. HEART: S1, S2. Regular rhythm. No murmurs or gallops. ABDOMEN: Soft, nondistended, nontender. Positive bowel sounds. EXTREMITIES: No cyanosis, clubbing. Left foot has TMA with lateral mid foot ulcer. NEUROLOGIC: Cranial nerves II through XII grossly intact. Motor strength 5/5 in all 4 extremities. Gait is ambulatory with a front wheel walker. RECTAL: Refused and deferred. GENITOURINARY: Refused and deferred. PSYCHIATRIC: Mood and affect is intact. Assessment/Plan Assessment/Plan Assessment/Plan Assessment/Plan ASSESSMENT: 1. 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 2. Uncontrolled diabetes type 2. 3. Acute kidney injury. 4. Seizure disorder. 5. Hyperkalemia. 6. Peripheral vascular disease. 7. History of CVA with TIA. 8. Hyponatremia. 9. Hypertension. 10. Dyslipidemia. PLAN: In monitored unit. Broad-spectrum antibiotics: vancomycin and ceftriaxone. Monitor blood glucose level closely. Code status: Full Code. Nephrology = Dr. Babs Najera Infectious Disease consultation = Dr. Herminio Boss Wound consultation = Dr. Josafat Narvaez Pulmonary consultation = Dr. Choudhary Podiatry consultation = Dr. Mic Rogers. discharge planning to [facility] Wound care. Monitor laboratory. Await bone scan result Sukumar Rhodes MD Sep 26, 2020 17:39
--- NOTE | 2020-09-26 18:56 | Surgery Progress Note ---
Surgery Progress Note Subjective Additional Comments bone scan results reviewed clinically improved no complaints eating well pain min Objective Last 24 Hour Vital Signs Date Time Temp Pulse Resp B/P (MAP) Pulse Ox O2 Delivery O2 Flow Rate FiO2 09/26/20 17:44 81 125/67 09/26/20 16:00 81 09/26/20 16:00 97.2 87 20 125/67 (86) 95 09/26/20 12:00 97.9 88 20 157/75 (102) 96 09/26/20 12:00 86 09/26/20 09:00 Room Air 09/26/20 08:56 134/78 09/26/20 08:56 89 134/78 09/26/20 08:00 81 09/26/20 08:00 99.0 89 20 134/78 (96) 94 09/26/20 04:00 98.6 91 20 144/76 (98) 96 09/26/20 04:00 86 09/26/20 00:00 85 09/26/20 00:00 98.2 88 18 143/86 (105) 96 09/25/20 21:00 Room Air 09/25/20 20:00 98.5 80 18 138/70 (92) 96 09/25/20 20:00 80 I&O Intake and Output 09/25/20 09/26/20 19:00 07:00 Intake Total 360 ml Output Total 1700 ml 600 ml Balance -1700 ml -240 ml Intake Oral 360 ml Output Urine Total 1700 ml Other 600 ml # Voids 2 # Bowel Movements 1 Dressing: dry Wound: clean Cardiovascular: RSR Respiratory: decreased breath sounds Abdomen: soft, flat, non-tender, present bowel sounds, non-distended Extremities: no edema, no tenderness, no cyanosis, other Laboratory Tests Test 09/26/20 06:35 White Blood Count 9.5 K/UL (4.8-10.8) # Red Blood Count 4.06 M/UL (4.70-6.10) L Hemoglobin 11.1 G/DL (14.2-18.0) L Hematocrit 34.9 % (42.0-52.0) L Mean Corpuscular Volume 86 FL (80-99) Mean Corpuscular Hemoglobin 27.4 PG (27.0-31.0) Mean Corpuscular Hemoglobin Concent 31.8 G/DL (32.0-36.0) L Red Cell Distribution Width 13.8 % (11.6-14.8) Platelet Count 214 K/UL (150-450) Mean Platelet Volume 7.2 FL (6.5-10.1) Neutrophils (%) (Auto) 76.8 % (45.0-75.0) H Lymphocytes (%) (Auto) 15.4 % (20.0-45.0) L Monocytes (%) (Auto) 5.6 % (1.0-10.0) Eosinophils (%) (Auto) 1.6 % (0.0-3.0) Basophils (%) (Auto) 0.5 % (0.0-2.0) Sodium Level 136 MMOL/L (136-145) Potassium Level 4.1 MMOL/L (3.5-5.1) Chloride Level 101 MMOL/L (98-107) Carbon Dioxide Level 28 MMOL/L (21-32) Anion Gap 7 mmol/L (5-15) Blood Urea Nitrogen 15 mg/dL (7-18) Creatinine 1.2 MG/DL (0.55-1.30) Estimat Glomerular Filtration Rate > 60 mL/min (>60) Glucose Level 205 MG/DL (74-106) H Calcium Level 9.0 MG/DL (8.5-10.1) Plan Problems: (1) Hyperkalemia (2) Cellulitis Assessment & Plan: 70-year-old male presented with left foot cellulitis. Prior TMA. Lateral aspect a 1 cm dehiscence identified opening no purulent drainage some serous drainage. Local wound care provided. Edema identified. Vascular imaging pending. Podiatry eval. Okay for diet. Continue antibiotics. No acute surgical invention. No abscess identified. Plainly cellulitis. Will follow with recommendations thank you for let me participate in patient's care Pt presented on admission with Ulcer lateral L foot(L)0.4cm x (W)1.1cm. Hx of TMA L Foot. Base of wound is shilpa but dry. Edges are dry and peeling. N0 evidence of erythema,induration or fluctuance periwound.L Heel is boggy but blanchable. R Heel is Boggy with Non-Blanchable erythema(L)5cm x (W)6.5cm. Tx.Plan: Apply Cavilon Skin Barrier to both heels. Cover each Heel with Optifoam drsgs. Change every 7 days and prn. Off-Load heels with Pillow. Reposition at least every 2hours or as tolerated. A marker arrington a lateral soft tissue ulcer near the distal stump. Patient is status post transmetatarsal amputation. There is some susceptibility artifact from a wire located near the tip of the fifth metatarsal stump. There is some increased STIR signal in the fifth metatarsal stump on the coronal images, equivocally visualized on one of 2 sagittal STIR sequences, not corroborated on T1 sequences. This was equivocally evident previously. Well-circumscribed high STIR signal lesions of the talus and the calcaneus are again demonstrated and appear grossly unchanged. Questionable similar lesions are also seen in the distal tibia. As on the prior exam, there is considerable soft tissue edema no definite drainable fluid collection, although evaluation for such is extremely limited. Impression: Extremely limited borderline nondiagnostic exam for reasons described above Evidence of prior transmetatarsal amputation, also previously described Equivocal focal high STIR signal within the fifth metatarsal stump, could represent a small focus of osteomyelitis but it is not corroborated on the T2-weighted images. This is also demonstrated on the previous exam. If there is high clinical suspicion, bone scan may be useful to better characterize Extensive soft tissue edema. 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 Bilaterally, grayscale and duplex images demonstrate no evidence of intraluminal thrombus. Normal phasic Doppler waveforms, demonstrating normal augmentation response and no evidence of valvular insufficiency. Greater saphenous vein(s) and tibial veins are patent. Normal compressibility. Impression: Negative for evidence of lower extremity deep venous thrombosis bilaterally Again demonstrated is prior transmetatarsal amputation. Amputation margins appear clean. Wire is seen adjacent to the fifth metatarsal stump. Or osteolytic lesion demonstrated. No acute fracture. No dislocation. No soft tissue gas. No significant interim change Impression: No acute process resolving d/c planning abx as per id/pcp ABNORMAL UPTAKE NOTED IN THE MEDIAL ASPECT OF THE LEFT MIDFOOT APPROXIMATELY AT THE LEVEL OF THE FIRST CUNEIFORM OR BASE OF THE FIRST METATARSAL. NO SIGNIFICANT HYPEREMIA ON INITIAL FLOW IMAGES AND THERE IS MINIMAL ASYMMETRY ON THE BLOOD POOL IMAGES. APPEARANCE IS NONSPECIFIC FOR INFECTIOUS/INFLAMMATORY DISEASE VERSUS OTHER CAUSES INCLUDING POSTTRAUMATIC OR DEGENERATIVE CHANGES. (3) Renal insufficiency (4) Diabetic foot ulcer (5) Uncontrolled diabetes mellitus (6) Osteomyelitis of ankle or foot, acute (7) Epileptic seizure, generalized (8) Diabetes mellitus (9) CAD (coronary artery disease) (10) Cardiomyopathy (11) PVD (peripheral vascular disease) (12) History of CVA (cerebrovascular accident) Josafat Narvaez Sep 26, 2020 18:56
--- NOTE | 2020-09-26 19:08 | NUR ---
NURSE HAND-OFF REPORT: Important Events on Shift:[None] Patient Status: [full code] Diet: [CCHO] Pending Orders: [] Pending Results/Labs:[] Pending MD notification:[] Latest Vital Signs: Temperature 97.2 , Pulse 81 , B/P 125 /67 , Respiratory Rate 20 , O2 SAT 95 , Room Air, O2 Flow Rate . Vital Sign Comment: [] EKG Rhythm: Sinus Rhythm Rhythm change?: N MD Notified?: - MD Response: Latest Manzanares Fall Score: 60 Fall Risk: High Risk Safety Measures: Call light Within Reach, Bed Alarm Zone 1, Side Rails Side Rails x3, Bed position Low and Locked. Fall Precautions: Yellow Socks Report given to ELIESER Fuentes[].
--- NOTE | 2020-09-26 19:30 | NUR ---
NURSE NOTES: Received report & pt from ELIESER Dorman. Pt in bed, a&ox3 with periods of confusion, in room air. No s/s of acute distress & no c/o pain at this time. Condom cath intact & draining yellow urine output to gravity. IV site intact & S/L'd. Bed in lowest position. Call light within reach. Plan of care discussed. Will continue to monitor.
[2020-09-26 20:00] VITALS: BP 127/62
[2020-09-26] MEDS: Miralax 17gm pkt ORAL SCH (20:22)
[2020-09-26] MEDS: Atorvastatin 20mg tab ORAL SCH (20:30)
[2020-09-27] VITALS: BP 131/76
[2020-09-27 04:00] VITALS: BP 130/77
[2020-09-27] MEDS: Vancomycin 750mg/NS 275ml IVPB SCH ×2 (04:35)
[2020-09-27] MEDS: HYDROcodone/Acetamin 5/325 tab ORAL PRN ×2 (04:57→09:51)
[2020-09-27] MEDS: NovoLOG Insulin Flexpen SUBQ SCH ×2 (05:40→12:31)
--- NOTE | 2020-09-27 07:00 | NUR ---
TRANSFER TO FLOOR: Patient transferred to [facility], per MD order. Report given to ELIESER Williamson. Belongings and medications given to RN. Family (Belkis Milan - daughter) informed of transfer.
--- NOTE | 2020-09-27 07:10 | NUR ---
NURSE HAND-OFF REPORT: Important Events on Shift:transfer to [facility], pain management Patient Status: stable Diet: ccho (m) Pending Orders: Pending Results/Labs: Pending MD notification: Latest Vital Signs: Temperature 97.7 , Pulse 87 , B/P 130 /77 , Respiratory Rate 20 , O2 SAT 92 , Room Air, O2 Flow Rate . Vital Sign Comment: EKG Rhythm: Sinus Rhythm Rhythm change?: N MD Notified?: - MD Response: Latest Manzanares Fall Score: 60 Fall Risk: High Risk Safety Measures: Call light Within Reach, Bed Alarm Zone 1, Side Rails Side Rails x3, Bed position Low and Locked. Fall Precautions: Yellow Socks Report given to Teri Lindo RN.
[2020-09-27 07:31] LABS: BASOPHILS % (AUTO) 0.7 % (0.0-2.0); EOSINOPHILS % (AUTO) 1.6 % (0.0-3.0); HEMATOCRIT 34.9 % (42.0-52.0); HEMOGLOBIN 11.1 G/DL (14.2-18.0); LYMPHOCYTES % (AUTO) 27.5 % (20.0-45.0); MEAN CORPUSCULAR VOLUME 86 FL (80-99); NEUTROPHILS % (AUTO) 62.2 % (45.0-75.0); PLATELET COUNT 218 K/UL (150-450); RED BLOOD COUNT 4.07 M/UL (4.70-6.10); RED CELL DISTRIBUTION WIDTH 13.8 % (11.6-14.8); WHITE BLOOD COUNT 5.6 K/UL (4.8-10.8)
[2020-09-27 07:41] LABS: ANION GAP 9 mmol/L (5-15); BLOOD UREA NITROGEN 16 mg/dL (7-18); CALCIUM 8.7 MG/DL (8.5-10.1); CARBON DIOXIDE 25 MMOL/L (21-32); CHLORIDE 103 MMOL/L (98-107); CREATININE 1.1 MG/DL (0.55-1.30); POTASSIUM 3.9 MMOL/L (3.5-5.1); SODIUM 137 MMOL/L (136-145)
--- NOTE | 2020-09-27 08:17 | Pulmonology Progress Note ---
Subjective ROS Limited/Unobtainable: No Interval Events: None major reported per nursing Constitutional: Reports: no symptoms, other - feels better HEENT: Repors: no symptoms Respiratory: Reports: no symptoms Cardiovascular: Reports: no symptoms Gastrointestinal/Abdominal: Reports: no symptoms Musculoskeletal: Reports: pain, other - decreased Allergies: Coded Allergies: No Known Allergies (Unverified , 05/07/14) Objective Last 24 Hour Vital Signs Date Time Temp Pulse Resp B/P (MAP) Pulse Ox O2 Delivery O2 Flow Rate FiO2 09/27/20 04:00 84 09/27/20 04:00 97.7 87 20 130/77 (94) 92 09/27/20 00:00 79 09/27/20 00:00 97.7 75 20 131/76 (94) 97 09/26/20 21:00 Room Air 09/26/20 20:00 98.5 76 20 127/62 (83) 92 09/26/20 20:00 82 09/26/20 17:44 81 125/67 09/26/20 16:00 81 09/26/20 16:00 97.2 87 20 125/67 (86) 95 09/26/20 12:00 97.9 88 20 157/75 (102) 96 09/26/20 12:00 86 09/26/20 09:00 Room Air 09/26/20 08:56 134/78 09/26/20 08:56 89 134/78 Intake and Output 09/26/20 09/27/20 19:00 07:00 Intake Total 720 ml 240 ml Output Total 1300 ml 1600 ml Balance -580 ml -1360 ml Intake Oral 720 ml 240 ml Output Urine Total 1300 ml 1600 ml General Appearance: no acute distress HEENT: atraumatic Respiratory: lungs clear Cardiovascular: normal rate Abdomen: soft, non tender Extremities: other - left foot toes amputated Skin: ulcers - lateral aspect of L foot Laboratory Tests 09/27/20 06:06: White Blood Count 5.6, Red Blood Count 4.07L, Hemoglobin 11.1L, Hematocrit 34.9L , Mean Corpuscular Volume 86, Mean Corpuscular Hemoglobin 27.3, Mean Corpuscular Hemoglobin Concent 31.8L, Red Cell Distribution Width 13.8, Platelet Count 218, Mean Platelet Volume 6.7, Neutrophils (%) (Auto) 62.2, Lymphocytes (%) (Auto) 27.5, Monocytes (%) (Auto) 8.0, Eosinophils (%) (Auto) 1.6, Basophils (%) (Auto) 0.7, Sodium Level 137, Potassium Level 3.9, Chloride Level 103, Carbon Dioxide Level 25, Anion Gap 9, Blood Urea Nitrogen 16, Creatinine 1.1, Estimat Glomerular Filtration Rate > 60, Glucose Level 184H, Calcium Level 8.7 Current Medications Medications (Trade) Dose Ordered Sig/Mell Route PRN Reason Start Time Stop Time Status Last Admin Dose Admin Acetaminophen (Tylenol) 650 mg Q6H PRN ORAL Temp >100.5 09/25/20 12:00 10/25/20 11:59 Acetaminophen/ Hydrocodone Bitart ([place] 5/325) 1 tab Q6H PRN ORAL Mild Pain (Pain Scale 1-3) 09/25/20 14:15 10/02/20 14:14 09/27/20 04:57 Aspirin (Ecotrin) 81 mg DAILY ORAL 09/19/20 09:00 11/03/20 08:59 09/26/20 08:56 Atorvastatin Calcium (Lipitor) 20 mg BEDTIME ORAL 09/19/20 21:00 12/18/20 20:59 09/26/20 20:30 Carvedilol (Coreg) 6.25 mg BID ORAL 09/19/20 09:00 10/19/20 08:59 09/26/20 17:44 Ceftriaxone Sodium 2 gm/ Dextrose 55 ml @ 110 mls/hr Q24H IVPB 09/19/20 13:00 10/02/20 23:59 09/26/20 12:20 Clonidine HCl (Catapres Tab) 0.1 mg Q4H PRN ORAL SBP>160MMHG 09/19/20 01:45 12/18/20 01:44 09/21/20 05:11 Clopidogrel Bisulfate (Plavix) 75 mg DAILY ORAL 09/19/20 09:00 10/19/20 08:59 09/26/20 08:56 Dextrose (Dextrose 50%) 25 ml Q30M PRN IV Hypoglycemia 09/19/20 01:30 12/18/20 01:29 Dextrose (Dextrose 50%) 50 ml Q30M PRN IV Hypoglycemia 09/19/20 01:30 12/18/20 01:29 Docusate Sodium (Colace) 100 mg TWICE A DAY ORAL 09/21/20 18:00 10/21/20 17:59 09/26/20 17:44 Gabapentin (Neurontin) 600 mg BID ORAL 09/19/20 09:00 10/19/20 08:59 09/26/20 17:44 Insulin Aspart (NovoLOG) BEFORE MEALS AND HS SUBQ 09/19/20 06:30 12/18/20 06:29 09/27/20 05:40 Insulin Detemir (Levemir) 15 units Q24H SUBQ 09/25/20 15:00 12/24/20 14:59 09/26/20 16:07 Isosorbide Mononitrate (Imdur) 30 mg DAILY ORAL 09/19/20 09:00 10/19/20 08:59 09/26/20 08:56 Ondansetron HCl (Zofran) 4 mg Q4H PRN IVP Nausea & Vomiting 09/19/20 01:30 10/19/20 01:29 Pantoprazole (Protonix) 40 mg DAILY ORAL 09/19/20 09:00 10/19/20 08:59 09/26/20 08:56 Phenytoin (Dilantin) 200 mg Q12HR ORAL 09/19/20 21:00 11/03/20 08:59 09/26/20 20:22 Polyethylene Glycol (Miralax) 17 gm BEDTIME ORAL 09/21/20 21:00 10/21/20 20:59 09/26/20 20:22 Terazosin HCl (Hytrin) 5 mg BEDTIME ORAL 09/19/20 21:00 10/19/20 20:59 09/26/20 20:22 Vancomycin HCl (Vanco pharmacy to dose) 1 ea DAILY PRN MISC Per rx protocol 09/19/20 01:30 10/19/20 01:29 Vancomycin HCl 750 mg/Sodium Chloride 275 ml @ 183.333 mls/hr Q12H IVPB 09/21/20 05:00 09/30/20 23:59 09/27/20 04:35 Zolpidem Tartrate (Ambien) 5 mg BEDTIME PRN ORAL Insomnia 09/25/20 14:15 10/02/20 14:14 09/25/20 22:34 Assessment/Plan Assessment/Plan 1. Diabetic foot ulcer - on Abx - MRI of the L foot (09/20) suspicious for osteomyelitis -> f/u bone scan (09/25) reviewed -Wound care following 2. Uncontrolled diabetes mellitus with hyperglycemia -BG control -A1c 12.2 3. Hyperkalemia - resolved 4. Acute renal failure - per primary MD 5 .History of seizure -Continue Dilantin 6. Risk of aspiration pneumonia given history of seizure -Monitor for seizure -Monitor for fever 7. ex-smoker 8. Lung infiltrates, ? pneumonia - COVID-19 negative (09/20) - on Abx Noted plan for dc to SNF [facility] for IV Abx and physical therapy Medically stable for discharge from pulmonary standpoint The care for this patient was discussed with my supervising physician. Time spent for this case was approximately 31 minutes. Asher Parikh Sep 27, 2020 08:17
[2020-09-27 09:00] VITALS: BP 126/72
[2020-09-27] MEDS: Carvedilol 6.25mg Tab ORAL SCH (09:00)
[2020-09-27] MEDS ORDERED: LEVEMIR FL100 UNIT/2 SQ ×2 (09:42→11:28)
--- NOTE | 2020-09-27 09:43 | General Progress Note ---
Subjective Allergies: Coded Allergies: No Known Allergies (Unverified , 05/07/14) Subjective pt is bed bound confused pain is controlled no sob Objective Last 24 Hour Vital Signs Date Time Temp Pulse Resp B/P (MAP) Pulse Ox O2 Delivery O2 Flow Rate FiO2 09/27/20 04:00 84 09/27/20 04:00 97.7 87 20 130/77 (94) 92 09/27/20 00:00 79 09/27/20 00:00 97.7 75 20 131/76 (94) 97 09/26/20 21:00 Room Air 09/26/20 20:00 98.5 76 20 127/62 (83) 92 09/26/20 20:00 82 09/26/20 17:44 81 125/67 09/26/20 16:00 81 09/26/20 16:00 97.2 87 20 125/67 (86) 95 09/26/20 12:00 97.9 88 20 157/75 (102) 96 09/26/20 12:00 86 Intake and Output 09/26/20 09/27/20 19:00 07:00 Intake Total 720 ml 240 ml Output Total 1300 ml 1600 ml Balance -580 ml -1360 ml Intake Oral 720 ml 240 ml Output Urine Total 1300 ml 1600 ml Laboratory Tests 09/27/20 06:06: White Blood Count 5.6, Red Blood Count 4.07L, Hemoglobin 11.1L, Hematocrit 34.9L , Mean Corpuscular Volume 86, Mean Corpuscular Hemoglobin 27.3, Mean Corpuscular Hemoglobin Concent 31.8L, Red Cell Distribution Width 13.8, Platelet Count 218, Mean Platelet Volume 6.7, Neutrophils (%) (Auto) 62.2, Lymphocytes (%) (Auto) 27.5, Monocytes (%) (Auto) 8.0, Eosinophils (%) (Auto) 1.6, Basophils (%) (Auto) 0.7, Sodium Level 137, Potassium Level 3.9, Chloride Level 103, Carbon Dioxide Level 25, Anion Gap 9, Blood Urea Nitrogen 16, Creatinine 1.1, Estimat Glomerular Filtration Rate > 60, Glucose Level 184H, Calcium Level 8.7 Height (Feet): 6 Height (Inches): 0.00 Weight (Pounds): 150 General Appearance: alert EENT: PERRL/EOMI Neck: supple Cardiovascular: regular rhythm Respiratory/Chest: lungs clear Abdomen: non tender, soft Extremities: non-tender Assessment/Plan Assessment/Plan: pna improving cellulitis/foot ulcer better on iv abx, dc plan per for abx copd htn dm dementia chronic pain arf better cont abx ss accue check dw dtr and cm dc plan to snf Noble Penn MD Sep 27, 2020 09:43
[2020-09-27] MEDS: Aspirin EC 81mg tab ORAL SCH (09:46)
[2020-09-27] MEDS: Docusate 100mg cap ORAL SCH (09:47)
[2020-09-27] MEDS: Phenytoin 100mg cap ORAL SCH (09:48)
[2020-09-27] MEDS: Imdur 30mg tab ORAL SCH (09:49)
--- NOTE | 2020-09-27 10:11 | Nephrology Progress Note ---
Assessment/Plan Plan #left foot osteo #r/o sepsis #hyponatremia #hyperkalemia #JASMIN #DM #HTN #HLD IMPRESSION: ABNORMAL UPTAKE NOTED IN THE MEDIAL ASPECT OF THE LEFT MIDFOOT APPROXIMATELY AT THE LEVEL OF THE FIRST CUNEIFORM OR BASE OF THE FIRST METATARSAL. NO SIGNIFICANT HYPEREMIA ON INITIAL FLOW IMAGES AND THERE IS MINIMAL ASYMMETRY ON THE BLOOD POOL IMAGES. APPEARANCE IS NONSPECIFIC FOR INFECTIOUS/INFLAMMATORY DISEASE VERSUS OTHER CAUSES INCLUDING POSTTRAUMATIC OR DEGENERATIVE CHANGES. Recommend correlation with repeat left foot x-ray. - DC IVF - BG control - IV antibiotics - pain control - ID eval - podiatry eval - surgery eval - resume home meds - monitor BG - hold metformin - foot MRI noted -time spent 65 min Subjective ROS Limited/Unobtainable: No Constitutional: Reports: weakness HEENT: Denies: no symptoms, eye pain, blurred vision, tearing, double vision, ear pain, ear discharge, nose pain, nose congestion, throat pain, throat swelling, mouth pain, mouth swelling, other Genitourinary: Denies: no symptoms, burning, discharge, frequency, flank pain, hematuria, incontinence, pain, urgency, other Subjective IMPRESSION: ABNORMAL UPTAKE NOTED IN THE MEDIAL ASPECT OF THE LEFT MIDFOOT APPROXIMATELY AT THE LEVEL OF THE FIRST CUNEIFORM OR BASE OF THE FIRST METATARSAL. NO SIGNIFICANT HYPEREMIA ON INITIAL FLOW IMAGES AND THERE IS MINIMAL ASYMMETRY ON THE BLOOD POOL IMAGES. APPEARANCE IS NONSPECIFIC FOR INFECTIOUS/INFLAMMATORY DISEASE VERSUS OTHER CAUSES INCLUDING POSTTRAUMATIC OR DEGENERATIVE CHANGES. Recommend correlation with repeat left foot x-ray. Impression: Extremely limited borderline nondiagnostic exam for reasons described above Evidence of prior transmetatarsal amputation, also previously described Equivocal focal high STIR signal within the fifth metatarsal stump, could represent a small focus of osteomyelitis but it is not corroborated on the T2-weighted images. This is also demonstrated on the previous exam. If there is high clinical mata spicion, bone scan may be useful to better characterize Extensive soft tissue edema. 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 Objective Objective Last 24 Hour Vital Signs Date Time Temp Pulse Resp B/P (MAP) Pulse Ox O2 Delivery O2 Flow Rate FiO2 09/27/20 09:49 126/84 09/27/20 04:00 84 09/27/20 04:00 97.7 87 20 130/77 (94) 92 09/27/20 00:00 79 09/27/20 00:00 97.7 75 20 131/76 (94) 97 09/26/20 21:00 Room Air 09/26/20 20:00 98.5 76 20 127/62 (83) 92 09/26/20 20:00 82 09/26/20 17:44 81 125/67 09/26/20 16:00 81 09/26/20 16:00 97.2 87 20 125/67 (86) 95 09/26/20 12:00 97.9 88 20 157/75 (102) 96 09/26/20 12:00 86 Intake and Output 09/26/20 09/27/20 19:00 07:00 Intake Total 720 ml 240 ml Output Total 1300 ml 1600 ml Balance -580 ml -1360 ml Intake Oral 720 ml 240 ml Output Urine Total 1300 ml 1600 ml Laboratory Tests 09/27/20 06:06: White Blood Count 5.6, Red Blood Count 4.07L, Hemoglobin 11.1L, Hematocrit 34.9L , Mean Corpuscular Volume 86, Mean Corpuscular Hemoglobin 27.3, Mean Corpuscular Hemoglobin Concent 31.8L, Red Cell Distribution Width 13.8, Platelet Count 218, Mean Platelet Volume 6.7, Neutrophils (%) (Auto) 62.2, Lymphocytes (%) (Auto) 27.5, Monocytes (%) (Auto) 8.0, Eosinophils (%) (Auto) 1.6, Basophils (%) (Auto) 0.7, Sodium Level 137, Potassium Level 3.9, Chloride Level 103, Carbon Dioxide Level 25, Anion Gap 9, Blood Urea Nitrogen 16, Creatinine 1.1, Estimat Glomerular Filtration Rate > 60, Glucose Level 184H, Calcium Level 8.7 Height (Feet): 6 Height (Inches): 0.00 Weight (Pounds): 150 Objective General: Patient is laying in bed with normal work of breathing on room air HEENT: Head exam reveals that the head is normocephalic, atraumatic without deformity or unusual swelling. Pupils are PERRLA. CHEST AND LUNGS: Reveals clear, normal, symmetrical breath sounds with no adventitious sounds. CARDIOVASCULAR: Reveals normal S1, S2 without murmurs, rubs, or clicks. ABDOMEN: Soft with no tenderness or organomegaly. RECTAL: Deferred. MUSCULOSKELETAL: There is no tenderness to palpation. Range of motion is normal. SKIN: All left foot toes amputated. Small chronic wound on the lateral aspect of left foot without erythema or induration. NEUROLOGICAL: Alert and oriented x3 , nonfocal Babs Najera M.D. Sep 27, 2020 10:10
--- NOTE | 2020-09-27 11:15 | Infectious Diseases Prog Note ---
Assessment/Plan Assessment/Plan IMPRESSION: 1. Diabetic foot ulcer, cellulitis, low chance of osteomyelitis. 2. Diabetes mellitus with hyperglycemia. 3. Hyperkalemia. 4. Acute renal failure. 5. Peripheral vascular disease. 6. Lung infiltrates, ? pneumonia RECOMMENDATION: Discontinue IV vancomycin & ceftriaxone. Case was D/W RN Agree with discharge plan Subjective ROS Limited/Unobtainable: No Constitutional: Reports: no symptoms Cardiovascular: Reports: no symptoms Gastrointestinal/Abdominal: Reports: no symptoms Genitourinary: Reports: no symptoms Allergies: Coded Allergies: No Known Allergies (Unverified , 05/07/14) Objective Last 24 Hour Vital Signs Date Time Temp Pulse Resp B/P (MAP) Pulse Ox O2 Delivery O2 Flow Rate FiO2 09/27/20 09:49 126/84 09/27/20 04:00 84 09/27/20 04:00 97.7 87 20 130/77 (94) 92 09/27/20 00:00 79 09/27/20 00:00 97.7 75 20 131/76 (94) 97 09/26/20 21:00 Room Air 09/26/20 20:00 98.5 76 20 127/62 (83) 92 09/26/20 20:00 82 09/26/20 17:44 81 125/67 09/26/20 16:00 81 09/26/20 16:00 97.2 87 20 125/67 (86) 95 09/26/20 12:00 97.9 88 20 157/75 (102) 96 09/26/20 12:00 86 Height (Feet): 6 Height (Inches): 0.00 Weight (Pounds): 150 General Appearance: no acute distress HEENT: mucous membranes moist Respiratory/Chest: lungs clear Cardiovascular: normal rate Abdomen: soft, non tender Extremities: no edema, other - amputated R toes Skin: ulcers, other - left foot healing Neurologic/Psychiatric: alert, oriented x 3, responsive Laboratory Tests Test 09/27/20 06:06 White Blood Count 5.6 K/UL (4.8-10.8) Red Blood Count 4.07 M/UL (4.70-6.10) L Hemoglobin 11.1 G/DL (14.2-18.0) L Hematocrit 34.9 % (42.0-52.0) L Mean Corpuscular Volume 86 FL (80-99) Mean Corpuscular Hemoglobin 27.3 PG (27.0-31.0) Mean Corpuscular Hemoglobin Concent 31.8 G/DL (32.0-36.0) L Red Cell Distribution Width 13.8 % (11.6-14.8) Platelet Count 218 K/UL (150-450) Mean Platelet Volume 6.7 FL (6.5-10.1) Neutrophils (%) (Auto) 62.2 % (45.0-75.0) Lymphocytes (%) (Auto) 27.5 % (20.0-45.0) Monocytes (%) (Auto) 8.0 % (1.0-10.0) Eosinophils (%) (Auto) 1.6 % (0.0-3.0) Basophils (%) (Auto) 0.7 % (0.0-2.0) Sodium Level 137 MMOL/L (136-145) Potassium Level 3.9 MMOL/L (3.5-5.1) Chloride Level 103 MMOL/L (98-107) Carbon Dioxide Level 25 MMOL/L (21-32) Anion Gap 9 mmol/L (5-15) Blood Urea Nitrogen 16 mg/dL (7-18) Creatinine 1.1 MG/DL (0.55-1.30) Estimat Glomerular Filtration Rate > 60 mL/min (>60) Glucose Level 184 MG/DL (74-106) H Calcium Level 8.7 MG/DL (8.5-10.1) Current Medications Medications (Trade) Dose Ordered Sig/Mell Route PRN Reason Start Time Stop Time Status Last Admin Dose Admin Acetaminophen (Tylenol) 650 mg Q6H PRN ORAL Temp >100.5 09/25/20 12:00 10/25/20 11:59 Acetaminophen/ Hydrocodone Bitart ([place] 5/325) 1 tab Q6H PRN ORAL Mild Pain (Pain Scale 1-3) 09/25/20 14:15 10/02/20 14:14 09/27/20 09:51 Aspirin (Ecotrin) 81 mg DAILY ORAL 09/19/20 09:00 11/03/20 08:59 09/27/20 09:46 Atorvastatin Calcium (Lipitor) 20 mg BEDTIME ORAL 09/19/20 21:00 12/18/20 20:59 09/26/20 20:30 Carvedilol (Coreg) 6.25 mg BID ORAL 09/19/20 09:00 10/19/20 08:59 09/26/20 17:44 Ceftriaxone Sodium 2 gm/ Dextrose 55 ml @ 110 mls/hr Q24H IVPB 09/19/20 13:00 10/02/20 23:59 09/26/20 12:20 Clonidine HCl (Catapres Tab) 0.1 mg Q4H PRN ORAL SBP>160MMHG 09/19/20 01:45 12/18/20 01:44 09/21/20 05:11 Clopidogrel Bisulfate (Plavix) 75 mg DAILY ORAL 09/19/20 09:00 10/19/20 08:59 09/27/20 09:46 Dextrose (Dextrose 50%) 25 ml Q30M PRN IV Hypoglycemia 09/19/20 01:30 12/18/20 01:29 Dextrose (Dextrose 50%) 50 ml Q30M PRN IV Hypoglycemia 09/19/20 01:30 12/18/20 01:29 Docusate Sodium (Colace) 100 mg TWICE A DAY ORAL 09/21/20 18:00 10/21/20 17:59 09/27/20 09:47 Gabapentin (Neurontin) 600 mg BID ORAL 09/19/20 09:00 10/19/20 08:59 09/27/20 10:01 Insulin Aspart (NovoLOG) BEFORE MEALS AND HS SUBQ 09/19/20 06:30 12/18/20 06:29 09/27/20 05:40 Insulin Detemir (Levemir) 15 units Q24H SUBQ 09/25/20 15:00 12/24/20 14:59 09/26/20 16:07 Isosorbide Mononitrate (Imdur) 30 mg DAILY ORAL 09/19/20 09:00 10/19/20 08:59 09/27/20 09:49 Ondansetron HCl (Zofran) 4 mg Q4H PRN IVP Nausea & Vomiting 09/19/20 01:30 10/19/20 01:29 Pantoprazole (Protonix) 40 mg DAILY ORAL 09/19/20 09:00 10/19/20 08:59 09/27/20 09:53 Phenytoin (Dilantin) 200 mg Q12HR ORAL 09/19/20 21:00 11/03/20 08:59 09/27/20 09:48 Polyethylene Glycol (Miralax) 17 gm BEDTIME ORAL 09/21/20 21:00 10/21/20 20:59 09/26/20 20:22 Terazosin HCl (Hytrin) 5 mg BEDTIME ORAL 09/19/20 21:00 10/19/20 20:59 09/26/20 20:22 Vancomycin HCl (Vanco pharmacy to dose) 1 ea DAILY PRN MISC Per rx protocol 09/19/20 01:30 10/19/20 01:29 Vancomycin HCl 750 mg/Sodium Chloride 275 ml @ 183.333 mls/hr Q12H IVPB 09/21/20 05:00 09/30/20 23:59 09/27/20 04:35 Zolpidem Tartrate (Ambien) 5 mg BEDTIME PRN ORAL Insomnia 09/25/20 14:15 10/02/20 14:14 09/25/20 22:34 Herminio Boss MD Sep 27, 2020 11:15
--- NOTE | 2020-09-27 11:23 | Internal Med Progress Note ---
Subjective Date of Service: Sep 27, 2020 Physician Name Sukumar Rhodes Attending Physician Noble Penn MD Current Medications Medications (Trade) Dose Ordered Sig/Mell Route PRN Reason Start Time Stop Time Status Last Admin Dose Admin Acetaminophen (Tylenol) 650 mg Q6H PRN ORAL Temp >100.5 09/25/20 12:00 10/25/20 11:59 Acetaminophen/ Hydrocodone Bitart ([place] 5/325) 1 tab Q6H PRN ORAL Mild Pain (Pain Scale 1-3) 09/25/20 14:15 10/02/20 14:14 09/27/20 09:51 Aspirin (Ecotrin) 81 mg DAILY ORAL 09/19/20 09:00 11/03/20 08:59 09/27/20 09:46 Atorvastatin Calcium (Lipitor) 20 mg BEDTIME ORAL 09/19/20 21:00 12/18/20 20:59 09/26/20 20:30 Carvedilol (Coreg) 6.25 mg BID ORAL 09/19/20 09:00 10/19/20 08:59 09/26/20 17:44 Clonidine HCl (Catapres Tab) 0.1 mg Q4H PRN ORAL SBP>160MMHG 09/19/20 01:45 12/18/20 01:44 09/21/20 05:11 Clopidogrel Bisulfate (Plavix) 75 mg DAILY ORAL 09/19/20 09:00 10/19/20 08:59 09/27/20 09:46 Dextrose (Dextrose 50%) 25 ml Q30M PRN IV Hypoglycemia 09/19/20 01:30 12/18/20 01:29 Dextrose (Dextrose 50%) 50 ml Q30M PRN IV Hypoglycemia 09/19/20 01:30 12/18/20 01:29 Docusate Sodium (Colace) 100 mg TWICE A DAY ORAL 09/21/20 18:00 10/21/20 17:59 09/27/20 09:47 Gabapentin (Neurontin) 600 mg BID ORAL 09/19/20 09:00 10/19/20 08:59 09/27/20 10:01 Insulin Aspart (NovoLOG) BEFORE MEALS AND HS SUBQ 09/19/20 06:30 12/18/20 06:29 09/27/20 05:40 Insulin Detemir (Levemir) 15 units Q24H SUBQ 09/25/20 15:00 12/24/20 14:59 09/26/20 16:07 Isosorbide Mononitrate (Imdur) 30 mg DAILY ORAL 09/19/20 09:00 10/19/20 08:59 09/27/20 09:49 Ondansetron HCl (Zofran) 4 mg Q4H PRN IVP Nausea & Vomiting 09/19/20 01:30 10/19/20 01:29 Pantoprazole (Protonix) 40 mg DAILY ORAL 09/19/20 09:00 10/19/20 08:59 09/27/20 09:53 Phenytoin (Dilantin) 200 mg Q12HR ORAL 09/19/20 21:00 11/03/20 08:59 09/27/20 09:48 Polyethylene Glycol (Miralax) 17 gm BEDTIME ORAL 09/21/20 21:00 10/21/20 20:59 09/26/20 20:22 Terazosin HCl (Hytrin) 5 mg BEDTIME ORAL 09/19/20 21:00 10/19/20 20:59 09/26/20 20:22 Zolpidem Tartrate (Ambien) 5 mg BEDTIME PRN ORAL Insomnia 09/25/20 14:15 10/02/20 14:14 09/25/20 22:34 Allergies: Coded Allergies: No Known Allergies (Unverified , 05/07/14) ROS Limited/Unobtainable: No Constitutional: Reports: no symptoms HEENT: Reports: no symptoms Cardiovascular: Reports: no symptoms Respiratory: Reports: no symptoms Gastrointestinal/Abdominal: Reports: no symptoms Genitourinary: Reports: no symptoms Neurologic/Psychiatric: Reports: no symptoms Subjective 70 YO M admitted with left foot pain. Now left foot diabetic ulcer. Cover for Bautista Juarez-Dr Dahl Objective Last Vital Signs Date Time Temp Pulse Resp B/P (MAP) Pulse Ox O2 Delivery O2 Flow Rate FiO2 09/27/20 09:49 126/84 09/27/20 04:00 84 09/27/20 04:00 97.7 20 92 09/26/20 21:00 Room Air Laboratory Tests Test 09/27/20 06:06 White Blood Count 5.6 K/UL (4.8-10.8) Red Blood Count 4.07 M/UL (4.70-6.10) L Hemoglobin 11.1 G/DL (14.2-18.0) L Hematocrit 34.9 % (42.0-52.0) L Mean Corpuscular Volume 86 FL (80-99) Mean Corpuscular Hemoglobin 27.3 PG (27.0-31.0) Mean Corpuscular Hemoglobin Concent 31.8 G/DL (32.0-36.0) L Red Cell Distribution Width 13.8 % (11.6-14.8) Platelet Count 218 K/UL (150-450) Mean Platelet Volume 6.7 FL (6.5-10.1) Neutrophils (%) (Auto) 62.2 % (45.0-75.0) Lymphocytes (%) (Auto) 27.5 % (20.0-45.0) Monocytes (%) (Auto) 8.0 % (1.0-10.0) Eosinophils (%) (Auto) 1.6 % (0.0-3.0) Basophils (%) (Auto) 0.7 % (0.0-2.0) Sodium Level 137 MMOL/L (136-145) Potassium Level 3.9 MMOL/L (3.5-5.1) Chloride Level 103 MMOL/L (98-107) Carbon Dioxide Level 25 MMOL/L (21-32) Anion Gap 9 mmol/L (5-15) Blood Urea Nitrogen 16 mg/dL (7-18) Creatinine 1.1 MG/DL (0.55-1.30) Estimat Glomerular Filtration Rate > 60 mL/min (>60) Glucose Level 184 MG/DL (74-106) H Calcium Level 8.7 MG/DL (8.5-10.1) Intake and Output 09/26/20 09/27/20 19:00 07:00 Intake Total 720 ml 240 ml Output Total 1300 ml 1600 ml Balance -580 ml -1360 ml Intake Oral 720 ml 240 ml Output Urine Total 1300 ml 1600 ml Objective PHYSICAL EXAMINATION: GENERAL: Patient is awake, responsive, in no acute distress. HEAD AND NECK: Pupils are equal and reactive to light. Extraocular movements are intact. Neck was supple. No JVD. LUNGS: Good air entry. No wheezing or rales. HEART: S1, S2. Regular rhythm. No murmurs or gallops. ABDOMEN: Soft, nondistended, nontender. Positive bowel sounds. EXTREMITIES: No cyanosis, clubbing. Left foot has TMA with lateral mid foot ulcer. NEUROLOGIC: Cranial nerves II through XII grossly intact. Motor strength 5/5 in all 4 extremities. Gait is ambulatory with a front wheel walker. RECTAL: Refused and deferred. GENITOURINARY: Refused and deferred. PSYCHIATRIC: Mood and affect is intact. Assessment/Plan Assessment/Plan Assessment/Plan Assessment/Plan ASSESSMENT: 1. 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 2. Uncontrolled diabetes type 2. 3. Acute kidney injury. 4. Seizure disorder. 5. Hyperkalemia. 6. Peripheral vascular disease. 7. History of CVA with TIA. 8. Hyponatremia. 9. Hypertension. 10. Dyslipidemia. PLAN: In monitored unit. Broad-spectrum antibiotics: S/P vancomycin and ceftriaxone. Monitor blood glucose level closely. Code status: Full Code. Nephrology = Dr. Babs Naejra Infectious Disease consultation = Dr. Herminio Boss Wound consultation = Dr. Josafat Narvaez Pulmonary consultation = Dr. Choudhary Podiatry consultation = Dr. Mic Rogers. discharge planning to [facility]. Monitor laboratory. bone scan result= low prob for ostemyelitis Sukumar Rhodes MD Sep 27, 2020 11:23
--- NOTE | 2020-09-27 11:44 | NUR ---
*-*DISCHARGE PLANNED*-* PATIENT HAS BEEN ACCEPTED AND WILL BE DISCHARGED TO: [facility] P: [phone] FOR NURSE TO NURSE REPORT ROOM# 132.[facility] TRANSPORTATION SET FOR 3PM S/W [place] [id number]. S/W PATIENTS DAUGHTER ADDIS POWER, WHO IS IN AGREEMENT WITH DISCHARGE PLAN.
[2020-09-27 12:00] VITALS: BP 130/77
--- NOTE | 2020-09-27 13:12 | Surgery Progress Note ---
Surgery Progress Note Subjective Symptoms: improved, tolerating diet, passing flatus Objective Last 24 Hour Vital Signs Date Time Temp Pulse Resp B/P (MAP) Pulse Ox O2 Delivery O2 Flow Rate FiO2 09/27/20 12:00 95 09/27/20 12:00 98.0 95 17 130/77 (94) 94 09/27/20 09:49 126/84 09/27/20 09:00 84 09/27/20 09:00 98.2 85 17 126/72 (90) 94 09/27/20 09:00 Room Air 09/27/20 04:00 84 09/27/20 04:00 97.7 87 20 130/77 (94) 92 09/27/20 00:00 79 09/27/20 00:00 97.7 75 20 131/76 (94) 97 09/26/20 21:00 Room Air 09/26/20 20:00 98.5 76 20 127/62 (83) 92 09/26/20 20:00 82 09/26/20 17:44 81 125/67 09/26/20 16:00 81 09/26/20 16:00 97.2 87 20 125/67 (86) 95 I&O Intake and Output 09/26/20 09/27/20 19:00 07:00 Intake Total 720 ml 240 ml Output Total 1300 ml 1600 ml Balance -580 ml -1360 ml Intake Oral 720 ml 240 ml Output Urine Total 1300 ml 1600 ml Dressing: saturated Cardiovascular: RSR Respiratory: decreased breath sounds Abdomen: soft, flat, non-tender, present bowel sounds, non-distended Extremities: no edema, no tenderness, no cyanosis Laboratory Tests Test 09/27/20 06:06 09/27/20 12:23 White Blood Count 5.6 K/UL (4.8-10.8) Red Blood Count 4.07 M/UL (4.70-6.10) L Hemoglobin 11.1 G/DL (14.2-18.0) L Hematocrit 34.9 % (42.0-52.0) L Mean Corpuscular Volume 86 FL (80-99) Mean Corpuscular Hemoglobin 27.3 PG (27.0-31.0) Mean Corpuscular Hemoglobin Concent 31.8 G/DL (32.0-36.0) L Red Cell Distribution Width 13.8 % (11.6-14.8) Platelet Count 218 K/UL (150-450) Mean Platelet Volume 6.7 FL (6.5-10.1) Neutrophils (%) (Auto) 62.2 % (45.0-75.0) Lymphocytes (%) (Auto) 27.5 % (20.0-45.0) Monocytes (%) (Auto) 8.0 % (1.0-10.0) Eosinophils (%) (Auto) 1.6 % (0.0-3.0) Basophils (%) (Auto) 0.7 % (0.0-2.0) Sodium Level 137 MMOL/L (136-145) Potassium Level 3.9 MMOL/L (3.5-5.1) Chloride Level 103 MMOL/L (98-107) Carbon Dioxide Level 25 MMOL/L (21-32) Anion Gap 9 mmol/L (5-15) Blood Urea Nitrogen 16 mg/dL (7-18) Creatinine 1.1 MG/DL (0.55-1.30) Estimat Glomerular Filtration Rate > 60 mL/min (>60) Glucose Level 184 MG/DL (74-106) H Calcium Level 8.7 MG/DL (8.5-10.1) POC Whole Blood Glucose 332 MG/DL (74-106) H Plan Problems: (1) Hyperkalemia (2) Cellulitis Assessment & Plan: 70-year-old male presented with left foot cellulitis. Prior TMA. Lateral aspect a 1 cm dehiscence identified opening no purulent drainage some serous drainage. Local wound care provided. Edema identified. Vascular imaging pending. Podiatry eval. Okay for diet. Continue antibiotics. No acute surgical invention. No abscess identified. Plainly cellulitis. Will follow with recommendations thank you for let me participate in patient's care Pt presented on admission with Ulcer lateral L foot(L)0.4cm x (W)1.1cm. Hx of TMA L Foot. Base of wound is shilpa but dry. Edges are dry and peeling. N0 evidence of erythema,induration or fluctuance periwound.L Heel is boggy but blanchable. R Heel is Boggy with Non-Blanchable erythema(L)5cm x (W)6.5cm. Tx.Plan: Apply Cavilon Skin Barrier to both heels. Cover each Heel with Optifoam drsgs. Change every 7 days and prn. Off-Load heels with Pillow. Reposition at least every 2hours or as tolerated. A marker arrington a lateral soft tissue ulcer near the distal stump. Patient is status post transmetatarsal amputation. There is some susceptibility artifact from a wire located near the tip of the fifth metatarsal stump. There is some increased STIR signal in the fifth metatarsal stump on the coronal images, equivocally visualized on one of 2 sagittal STIR sequences, not corroborated on T1 sequences. This was equivocally evident previously. Well-circumscribed high STIR signal lesions of the talus and the calcaneus are again demonstrated and appear grossly unchanged. Questionable similar lesions are also seen in the distal tibia. As on the prior exam, there is considerable soft tissue edema no definite drainable fluid collection, although evaluation for such is extremely limited. Impression: Extremely limited borderline nondiagnostic exam for reasons described above Evidence of prior transmetatarsal amputation, also previously described Equivocal focal high STIR signal within the fifth metatarsal stump, could represent a small focus of osteomyelitis but it is not corroborated on the T2-weighted images. This is also demonstrated on the previous exam. If there is high clinical suspicion, bone scan may be useful to better characterize Extensive soft tissue edema. 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 Bilaterally, grayscale and duplex images demonstrate no evidence of intraluminal thrombus. Normal phasic Doppler waveforms, demonstrating normal augmentation response and no evidence of valvular insufficiency. Greater saphenous vein(s) and tibial veins are patent. Normal compressibility. Impression: Negative for evidence of lower extremity deep venous thrombosis bilaterally Again demonstrated is prior transmetatarsal amputation. Amputation margins appear clean. Wire is seen adjacent to the fifth metatarsal stump. Or osteolytic lesion demonstrated. No acute fracture. No dislocation. No soft tissue gas. No significant interim change Impression: No acute process resolving d/c planning abx as per id/pcp ABNORMAL UPTAKE NOTED IN THE MEDIAL ASPECT OF THE LEFT MIDFOOT APPROXIMATELY AT THE LEVEL OF THE FIRST CUNEIFORM OR BASE OF THE FIRST METATARSAL. NO SIGNIFICANT HYPEREMIA ON INITIAL FLOW IMAGES AND THERE IS MINIMAL ASYMMETRY ON THE BLOOD POOL IMAGES. APPEARANCE IS NONSPECIFIC FOR INFECTIOUS/INFLAMMATORY DISEASE VERSUS OTHER CAUSES INCLUDING POSTTRAUMATIC OR DEGENERATIVE CHANGES. (3) Renal insufficiency (4) Diabetic foot ulcer (5) Uncontrolled diabetes mellitus (6) Osteomyelitis of ankle or foot, acute (7) Epileptic seizure, generalized (8) Diabetes mellitus (9) CAD (coronary artery disease) (10) Cardiomyopathy (11) PVD (peripheral vascular disease) (12) History of CVA (cerebrovascular accident) Josafat Narvaez Sep 27, 2020 13:12
--- NOTE | 2020-09-28 13:06 | Discharge Summary ---
Discharge Summary Discharge Summary _ Date of admission: 09/18/2020 Date of discharge: 09/27/[address] Penn History of Present Illness and Brief Hospital Course Mr. Milan is a 70-year-old male with past medical history of diabetes mellitus, CVA, and seizures, who was brought in by EMS from home for evaluation of left foot pain. Patient reported having his left toes recently amputated. Patient was receiving home wound care but was concerned about a possible infection in his left foot. Foot x-ray showed no evidence of gas or free air or anything to suggest infection or osteomyelitis. Patient presented with critically high glucose level but he stated he was compliant with his glucose lowering agents. Patient was admitted to the hospital for further management. Patient was started on antibiotics for the diabetic ulcer. Upon evaluation, patient was identified to have dehiscence in the lateral aspect of left foot without purulent drainage. Foot MRI findings were nondiagnostic. A follow-up bone scan showed abnormal uptake in the medial aspect of the left midfoot approximately at the level of the first cuneiform or base of the first metatarsal. Appearance was nonspecific for infectious/inflammatory disease versus other causes including posttraumatic or degenerative changes. Patient was also evaluated by a it technician who found no indication for acute surgical intervention. Chest x-ray showed bilateral infiltrates which was concerning for pneumonia. Patient tested negative for COVID-19. Patient was on antibiotics for his diabetic foot ulcer at the time. Throughout his hospitalization, patient was treated for left foot cellulitis/diabetic foot ulcer, and pneumonia. Patient was medically stable for discharge and was discharged to SNF on 09/27/2020. Consultants: Podiatry Dr. Rogers Surgery Dr. Narvaez Pulmonology Dr. Choudhary Infectious disease Dr. Boss Nephrology Dr. Najera Discharge Condition Improved and stable Discharge diet 2000 kcal diabetic diet Discharge activity Bedrest/as tolerated Final diagnoses Left foot diabetic ulcer with transmetatarsal amputation, cellulitis Diabetes mellitus with hyperglycemia Hyperkalemia Acute renal failure Peripheral vascular disease History of seizure disorder Hyponatremia Hypertension Dyslipidemia Pneumonia I have been assigned to dictate discharge summary for this account. Asher Parikh Sep 28, 2020 13:06
== END 2020-09-27 15:00 | DRG 344 ==
LOC: EDBD 18:36 → EMR 20:08 → 2E 20:41 → EDBEDREQ 22:28 → 2E 09-21 23:32 → 4E 09-27 06:53
DX: E11.621 Type 2 diabetes mellitus with foot ulcer (principal); E87.5 Hyperkalemia; E11.65 Type 2 diabetes mellitus with hyperglycemia; M86.179 Other acute osteomyelitis, unspecified ankle and foot; J18.9 Pneumonia, unspecified organism; L03.116 Cellulitis of left lower limb; Z89.422 Acquired absence of other left toe(s); I25.10 Atherosclerotic heart disease of native coronary artery without angina pectoris; I42.9 Cardiomyopathy, unspecified; N17.9 Acute kidney failure, unspecified; E87.1 Hypo-osmolality and hyponatremia; G89.4 Chronic pain syndrome; Z91.19 Patient's noncompliance with other medical treatment and regimen; Z86.73 Personal history of transient ischemic attack (TIA), and cerebral infarction without residual deficits; E11.51 Type 2 diabetes mellitus with diabetic peripheral angiopathy without gangrene; E78.5 Hyperlipidemia, unspecified; Z79.84 Long term (current) use of oral hypoglycemic drugs; Z79.82 Long term (current) use of aspirin; E11.69 Type 2 diabetes mellitus with other specified complication; M86.9 Osteomyelitis, unspecified; Z87.891 Personal history of nicotine dependence; G40.409 Other generalized epilepsy and epileptic syndromes, not intractable, without status epilepticus; N28.9 Disorder of kidney and ureter, unspecified
CPT/HCPCS: 36415; 71045; 78315; 80048; 80053; 80202; 81003; 82009; 82962; 83036; 83735; 84100; 85025; 85610; 85730; 87040; 87081; 87181; 93005; 93970; 96361; 96365; 96375; 96376; 99285; J1815; J7030; S5561